=== PATIENT | female | born 1935 | race Caucasian/White ===

== ENCOUNTER 2018-07-14 21:09 | Emergency (ER) | payer MEDICARE, SELFPAY ==
[2018-07-14] VITALS (7 sets, daily range): BP systolic 149–174; BP diastolic 48–93; PULSE 54–60; RESP 18–22; TEMP 36.6–36.7; O2SAT 91–95
--- NOTE | 2018-07-14 21:01 | ED.GENADUL_ITS ---
Discharge Plan Disposition Patient Disposition: HOME Condition: Stable Discharge Details Chief Complaint: Nausea/Vomit/Diar Clinical Impression: CAP (community acquired pneumonia) Reason For Visit: FILI Primary Care Provider: Camila Moreland ED Provider: Ben Lockett Home Meds and New Rx's Prescriptions: New levofloxacin 750 mg tablet 750 mg PO DAILY Qty: 6 RF: 0 ondansetron 4 mg tablet,disintegrating 4 mg PO TID PRN (Reason: nausea and vomiting) 5 Days Qty: 30 RF: 0 No Action propranolol 80 mg tablet 80 mg PO BID Qty: 180 RF: 0 dimenhydrinate [Dramamine] 50 mg Tablet 50 mg PO PRN PRNRF: 0 Discharge Instructions Instructions: Community Acquired Pneumonia (ED) Additional Instructions: Your lab work did not show any concerning findings. Your xray showed that you have a pneumonia Follow up with your primary care provider within a week if you feel you are becoming more ill, having persistent vomit or worsening trouble breathing return to the emergency department Medical Decision Making 82 yo female with hx of htn comes in with ems with not feeling well for a week, cough, general weakness, and n/v. She denies chest sun, fevers, headaches, neck stiffness, abdominal pain, rashes, recent travel. She is speaking in full sentences on exam without distress. She has no abdominal tenderness or distention to suggest sbo, cholecystitis or other pathology. Will eval for pna, obtain lab work to eval for dehydration and also test for influenza and monitor. labs unremarkable, awaiting xray. She is feeling better with IVF. HD stable xray shows pna. She is ambulating without respiratory distress. Recommended admission given her age but she declined and prefers to attempt outpatient management. Her PSI score is 60 points so outpatient management is reasonable at this itme. She will f/u with her pcp and return precautions given Differential Diagnosis pna, uri, influenza, uti Imaging Data Radiologic Study: Attestation: I personally reviewed and interpreted this imaging study as follows: Imaging: X-Ray Radiologist's impression: IMPRESSION: Right perihilar pneumonia. Suggest six-week followup. Lab Data Lab results reviewed: Yes I reviewed the patient's lab results. HPI General Mode of arrival: EMS . Date/Time Provider Initiated Documentation: 07/14/18 21:14 . Limitations to Documentation: no limitations . Information obtained by: patient . History of Present Illness 82 year old F presents to the emergency department with the chief complaint of don't feel well, Patient started experiencing this week(s) (1) and it has been constant. No relieving factors improve symptom(s), No exacerbating factors reported . Patient notes cough and nausea/vomiting. Related Data Home Medications Medication Instructions Recorded Confirmed propranolol 80 mg tablet 80 mg PO BID #180 tab-cap 06/08/18 07/14/18 dimenhydrinate [Dramamine] 50 mg PO PRN PRN 07/14/18 07/14/18 levofloxacin 750 mg PO DAILY #6 tab 07/14/18 ondansetron 4 mg PO TID PRN 5 Days #30 tab 07/14/18 Previous Rx's Medication Instructions Recorded propranolol 80 mg tablet 80 mg PO BID #180 tab-cap 06/08/18 levofloxacin 750 mg PO DAILY #6 tab 07/14/18 ondansetron 4 mg PO TID PRN 5 Days #30 tab 07/14/18 Allergies Allergy/AdvReac Type Severity Reaction Status Date / Time Sulfa (Sulfonamide Allergy Unknown Unverified 07/14/18 21:13 Antibiotics) Review of Systems Review of Systems All systems reviewed & are unremarkable except as noted in HPI and below Constitutional Denies chills and Denies fever(s) Eyes Denies loss of vision ENT Denies change in voice Cardiovascular Denies chest pain and Denies dyspnea Respiratory Denies dyspnea Gastrointestinal Denies abdominal pain Musculoskeletal Denies joint swelling Integumentary/Breasts Denies rash Neurologic Denies loss of vision Endocrine Denies cold intolerance and Denies heat intolerance [facility] Surgical History Cholecystectomy (~1991) Fracture, Closed Treatment (04/10/14) Social History Smoking and Tabacco status: Never Exam Const General: no acute distress Orientation: alert HENMT Head: normal to inspection Ears: external ears normal General nose exam: external nose normal Mouth: moist mucous membranes Eyes General: appearance normal, both eyes and all related structures Neck Neck: normal visual inspection Resp Effort & Inspection: normal respiratory effort and able to speak in complete sentences Cardio Rate: regular rate Skin General skin exam: no rashes or lesions noted Neuro General: alert and oriented x3 Extrem General: normal to inspection Psych Mental Status: mental status grossly normal
[2018-07-14] MEDS: Ondansetron 4 MG/2 ML VIAL IVP (21:28)
[2018-07-14] MEDS: Normal Saline 1,000 ML 1000 ML IV (21:28)
[2018-07-14 21:42] LABS: Abs Immature Grans 0.02 k/cumm (0.0-0.09); Absolute Basophil Count 0.02 k/cumm (0.0-0.2); Absolute Eosinophil Count 0.07 k/cumm (0.0-0.7); Absolute Lymphocyte Count 0.82 k/cumm (1.2-3.4); Absolute Monocyte Count 0.82 k/cumm (0.11-0.7); Absolute Neutrophil Count 6.78 k/cumm (1.2-6.7); Basophils % 0.2; Eosinophils % 0.8; HCT 41.5 % (36.0-46.0); HGB 13.8 g/dL (12.0-15.5); Immature Grans % 0.2; Lymphocytes % 9.6; Mean Corp. HGB Concentration 33.3 g/dL (32.0-36.0); Mean Corpuscular Hemoglobin 29.2 pg (27.0-33.0); Mean Corpuscular Volume 87.7 fL (80-95); Mean Platelet Volume 10.8 fL (8.0-11.0); Monocytes % 9.6; Neutrophils % 79.6; Platelet Count 143 x1000/uL (130-400); RBC 4.73 m/cumm (4.00-5.20); RBC Distribution Width 14.4 % (11.7-14.6); White Blood Cell Count 8.53 k/cumm (4.4-10.8)
[2018-07-14 21:55] LABS: ALT 16 U/L (12-78); AST 21 U/L (15-37); Alkaline Phosphatase 151 U/L (46-116); Anion Gap 9.3 mmol/L (3-11); BUN 23 mg/dL (7-18); Bilirubin, Direct 0.18 mg/dL (0.00-0.20); Bilirubin, Total 0.6 mg/dL (0.2-1.0); CO2 25.7 mmol/L (21.0-32.0); Calcium 8.5 mg/dL (8.5-10.1); Chloride 98 mmol/L (98-107); Glucose 152 mg/dL (70-100); Lipase 72 U/L (73-393); Magnesium 1.8 mg/dL (1.8-2.4); Sodium 133 mmol/L (136-145); Total Protein 7.1 g/dL (6.4-8.2)
[2018-07-14 21:56] LABS: INR 1.1 (0.9-1.1); PTT Activated 25.3 sec (21.0-31.4)
--- NOTE | 2018-07-14 22:10 | DI.RAD_ITS ---
SYMPTOM/DIAGNOSIS: COUGH PA AND LATERAL CHEST: A region of infiltration is noted adjacent to the minor fissure and there are regions of infiltration involving the right lower lobe. The left lung is clear. There is no evidence of a pleural effusion. The cardiovascular structures are intact. IMPRESSION: Findings consistent with an acute pneumonitis. Follow up images to clearing is recommended.
--- NOTE | 2018-07-14 22:21 | DI.VRAD_ITS ---
EXAM: XR Chest, 2 Views EXAM DATE/TIME: 07/14/2018 9:32 PM CLINICAL HISTORY: 82 years old, female; Signs and symptoms; Cough and other: Weakness; Patient HX: Cough for 1 week, weakness and general malise TECHNIQUE: XR of the chest, 2 views. COMPARISON: CR RIGHT RIBS TO INCLUDE CXR 04/17/2014 1:40 PM FINDINGS: Lungs: Right lung has some perihilar infiltrates. Pleural space: Unremarkable. No evidence of pneumothorax. Heart/Mediastinum: Unremarkable. Heart size within normal limits for technique. Bones/joints: Unremarkable. IMPRESSION: Right perihilar pneumonia. Suggest six-week followup. Dictated and Authenticated by: Avni Bird MD. Ordering:BERTHA Contreras MD
[2018-07-14] MEDS: LEVOFLOXACIN 500 MG, LEVOFLOXACIN 250 MG 750 MG PO (22:48)
--- NOTE | 2018-07-15 09:39 | CMPROGNOTE_ITS ---
Care Management Progress Note 07/15-Dr. Lockett requested assistance with a PCP (Mer[facility]) f/u in one week for pneumonia. Referral faxed to [facility] this .
== END 2018-07-14 23:18 | disposition home or self-care (01) ==
PROVIDERS: Emergency Provider Emergency Medicine; PCP Family Medicine
DX: J18.9 Pneumonia, unspecified organism (principal); I10 Essential (primary) hypertension
CPT/HCPCS: 36415; 80053; 80076; 83690; 87449; 96361; 96374; 99284; 71046; 81003; 83735; 85025; 85610; 85730; 99283; J2405

== ENCOUNTER 2019-05-08 14:54 | Inpatient (IN) | payer MEDICARE, SELFPAY ==
[2019-05-08] VITALS (99 sets, daily range): BP systolic 91–252; BP diastolic 50–146; PULSE 43–66; RESP 11–21; TEMP 36.5; O2SAT 87–99
--- NOTE | 2019-05-08 16:09 | W.ED.GENAD ---
Discharge Plan Disposition Condition: Good Discharge Details Chief Complaint: GenMedical Admit Date/Time: 05/08/19 17:37 Admit Provider: Sravan Reyes Attending Provider: Sravan Reyes Primary Care Provider: Camila Moreland ED Provider: Frederick Rowe Discharge Instructions Activity:: Activity as Tolerated Equipment/Supplies:: four wheeled walker Diet:: Low Sodium Discharge Orders Discharge Orders: Discharge Order (Routine); Ordered 05/12/19 Ordered By: Natasha Ruiz Discharge Data Discharge Date/Time-TO BE ENTERED AT DEPARTURE: 05/08/19 18:50 Medical Decision Making 16:24 --83-year-old female with history of hypertension, recently had her propanolol dosing decreased, also with history of CVA which she notes likely remote TIA with no residual defects, here with elevated blood pressure, dizziness and tingling in her bilateral legs. On exam patient has mild right facial weakness which she is unaware of as well as slight slurring to her speech. Concern for hypertensive emergency versus CVA versus other. Screening ECG was reviewed and interpreted by me: Sinus rhythm 60 bpm, nonspecific ST depression noted laterally V2 to V6 which is similar when compared to prior ECG from 12/23/2016. Plan to CT head. I will initiate treatment with nicardipine IV infusion. 17:23 --CT of the head was interpreted by radiology: IMPRESSION: Right-sided sinusitis. No acute arterial territory stroke. No intracranial hemorrhage Partially calcified extra-axial left frontal lobe mass. Consider MRI with IV contrast for further evaluation. Labs reviewed and nondiagnostic. I called and spoke with neurology operation agent at [facility]. Discussed ED presentation and course. He was able to review the chart from [facility] visit 04/25/2019. We specifically discussed extra-axial mass noted on CT head. He feels mass is chronic and likely meningioma and unrelated to current presentation. He does not feel emergent MRI is necessary. Patient was reassessed: BP improved and decreased by slightly more than 25%. Will decrease nicardipine drip to 4 mg/h. Family now here and note that they believe right facial weakness is chronic. Plan will be to admit for hypertensive emergency. HPI General Mode of arrival: ambulatory. Date/Time Provider Initiated Documentation: 05/08/19 15:31. Limitations to Documentation: no limitations. Information obtained by: patient. HPI Narrative: 83-year-old female with history of hypertension, prior CVA without residual deficits, presents with chief complaint of elevated blood pressure. Patient notes that a couple days prior to [place] she was noted to have elevated blood pressure and confusion and was taken to [facility]. She had extensive testing done at [facility] and was discharged from the emergency department. She followed up with her primary care physician who decreased her propanolol dosing. She notes that since this time she has had elevated blood pressure. Blood pressure today was extremely high. She notes associated tingling in her lower legs bilaterally for the past 3 days and also notes some dizziness. She states that today she felt like she might pass out. At this time she denies chest pain, shortness of breath, abdominal pain, nausea or vomiting. She does have moderate headache. She does not typically have headaches. No focal numbness or weakness. Related Data Home Medications Medication Instructions Recorded Confirmed metoprolol succinate 25 mg PO DAILY #14 cap 05/13/19 prednisone 60 mg PO DAILY 4 Days #12 tab 05/13/19 Previous Rx's Medication Instructions Recorded metoprolol succinate 25 mg PO DAILY #14 cap 05/13/19 prednisone 60 mg PO DAILY 4 Days #12 tab 05/13/19 Allergies Allergy/AdvReac Type Severity Reaction Status Date / Time Sulfa (Sulfonamide Allergy Unknown Unverified 05/13/19 09:25 Antibiotics) General Stated Complaint: GenMedical JENNIFER: 3 Review of Systems All systems reviewed & are unremarkable except as noted in HPI and below Constitutional Constitutional: Denies fever(s) Cardiovascular Cardiovascular: Denies chest pain Neurologic Neurologic: Reports as per HPI [facility] Medical History Acute infective polyneuritis (Inactive ~04/03/1966) Cerebrovascular accident (Chronic) 06/12 CT @ [facility]: SMALL LACUNAR INFARCTS. Incidental findings. 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 Impaired renal function disorder (Chronic) declines testing Intention tremor (Chronic) SECONDARY TO HYPOGLYCEMIA; NEUROLOGY W/U NEG.;on propranolol Macular degeneration (Acute) Meningioma (Acute) cerebral, left frontal, small, stable since 2007 Pneumonia (Inactive ~07/20/18) Surgical History Cholecystectomy (~1991) Fracture, Closed Treatment (04/10/14) LEFT SHOULDER FX AND DISLOCATED Status post extracapsular cataract extraction of left eye (Acute) Social History Smoking/Tobacco Use Status: Never Alcohol Intake: never Drug use: Never Substance use type: does not use Household members: none Do you feel safe at home: Yes Do you feel safe in your relationship?: Yes Exam Const General: cooperative and no acute distress HENMT Head: normocephalic and atraumatic Mouth: moist mucous membranes Eyes Conjunctivae: normal conjunctivae Sclera: normal sclerae EOM: EOM intact bilaterally Neck Neck: trachea midline and supple Resp Auscultation: clear to auscultation bilaterally, no rales, no rhonchi and no wheezes Cardio Jugular venous pressure: no JVD Rate: regular rate and not tachycardic Rhythm: regular rhythm GI Palpation: soft, not firm, no guarding, no masses, not rigid and nontender Skin General skin exam: no rashes or lesions noted Neuro General: alert, awake, oriented x3 and tone normal Cranial Nerves: PERRL and EOM intact bilaterally Cognition: normal cognition Speech: abnormal speech garbled Motor: other (Strength 5/5 all extremities; mild right facial weakness ) Sensory Exam: no sensory deficits noted Extrem General: no edema Psych Appearance: grossly normal Mental Status: mental status grossly normal Speech and Movement: speech and movement normal Course Vital Signs Vital signs: Vital Signs Temperature 36.5 C 05/08/19 15:01 Pulse 66 05/08/19 15:01 Respiratory Rate 18 05/08/19 15:01 Blood Pressure 252/146 H 05/08/19 15:01 Pulse Oximetry 98 05/08/19 15:01 Temperature 36.5 C 05/08/19 15:01 Temperature Source Tympanic 05/08/19 15:01 Pulse 66 05/08/19 15:01 Respiratory Rate 18 05/08/19 15:01 Respiratory Effort Non-Labored 05/08/19 15:31 Blood Pressure 252/146 H 05/08/19 15:01 Blood Pressure Position Sitting 05/08/19 15:01 Pulse Oximetry 98 05/08/19 15:01 Oxygen Delivery Method Room Air 05/08/19 15:01 Oxygen Flow Rate 0 05/08/19 15:01 Critical Care Time Critical Care Time Critical Care Time: Yes Total Critical Care Time: 40 Attestation: I spent greater than 40 minutes addressing this patient's immediate life threats
[2019-05-08 16:20] LABS: Abs Immature Grans 0.03 k/cumm (0.0-0.09); Absolute Basophil Count 0.04 k/cumm (0.0-0.2); Absolute Eosinophil Count 0.18 k/cumm (0.0-0.7); Absolute Lymphocyte Count 1.79 k/cumm (1.2-3.4); Absolute Monocyte Count 0.86 k/cumm (0.11-0.7); Basophils % 0.4; Eosinophils % 1.8; HCT 47.4 % (36.0-46.0); HGB 15.6 g/dL (12.0-15.5); Immature Grans % 0.3 %; Lymphocytes % 18.1; Mean Corp. HGB Concentration 32.9 g/dL (32.0-36.0); Mean Corpuscular Hemoglobin 29.2 pg (27.0-33.0); Mean Corpuscular Volume 88.8 fL (80-95); Mean Platelet Volume 11.9 fL (8.0-11.0); Monocytes % 8.7; Neutrophils % 70.7; Platelet Count 223 x1000/uL (130-400); RBC 5.34 m/cumm (4.00-5.20); RBC Distribution Width 14.8 % (11.7-14.6)
--- NOTE | 2019-05-08 16:29 | DI.CT_ITS ---
EXAM: CT HEAD - STROKE PROTOCOL CLINICAL HISTORY: right facial weakness, slurred speech TECHNIQUE: Noncontrast COMPARISON: No exams were available for comparison FINDINGS: No acute hemorrhage, mass or infarct is seen. There is no evidence of skull fracture. The right ma xillary sinus is completely opacified. There is also opacification of right-sided ethmoid sinuses. T he mastoid air cells appear clear. IMPRESSION: Right-sided sinus disease. No evidence of acute infarct.
[2019-05-08 16:41] LABS: ALT 20 U/L (14-59); AST 26 U/L (15-37); Albumin 3.8 g/dL (3.4-5.0); Alkaline Phosphatase 141 U/L (46-116); Anion Gap 12.2 mmol/L (3-11); BUN 36 mg/dL (7-18); Bilirubin, Total 0.6 mg/dL (0.2-1.0); CO2 26.8 mmol/L (21.0-32.0); CREATININE 1.16 mg/dL (0.55-1.02); Calcium 9.3 mg/dL (8.5-10.1); Chloride 101 mmol/L (98-107); Estimated GFR 44.73 (mL/min/1.73m2); Glucose 141 mg/dL (74-106); Sodium 140 mmol/L (136-145); Total Protein 7.8 g/dL (6.4-8.2); Troponin I < 0.05 ng/Ml (<0.06)
[2019-05-08 16:42] LABS: Potassium 5.1 mmol/L (3.5-5.1)
--- NOTE | 2019-05-08 16:42 | DI.VRAD_ITS ---
Addendum created by Wilbert Soares MD on 05/08/2019 5:44:23 PM EST THIS REPORT CONTAINS FINDINGS THAT MAY BE CRITICAL TO PATIENT CARE. MAMTA BURNETTE acknowledged receiving the report results at 5:44 PM EST on 05/08/2019. The findings were acknowledged and understood. Initial report created on 05/08/2019 4:42:00 PM EST PROCEDURE INFORMATION: Exam: CT Head Without Contrast Exam date and time: 05/08/2019 4:28 PM Age: 83 years old Clinical indication: Altered mental status/memory loss TECHNIQUE: Imaging protocol: Computed tomography of the head without contrast. Other technique: STROKE PROTOCOL was implemented. COMPARISON: No relevant prior studies available. FINDINGS: Brain: There is nonspecific white matter disease, likely related to chronic ischemic demyelination.No intracranial hemorrhage is seen. No acute arterial territory stroke is noted.There is brain parenchymal atrophy. Partially calcified extra-axial left frontal lobe mass. Consider MRI with IV contrast for further evaluation. Ventricles: Normal. No ventriculomegaly. Bones/joints: Unremarkable. No acute fracture. Sinuses: Complete opacification of the right frontal, ethmoid and maxillary sinuses. Mastoid air cells: Visualized mastoid air cells are well aerated. Soft tissues: Unremarkable. IMPRESSION: Right-sided sinusitis. No acute arterial territory stroke. No intracranial hemorrhage Partially calcified extra-axial left frontal lobe mass. Consider MRI with IV contrast for further evaluation. ASSESSMENT: ASPECTS ([place] Stroke Program Early CT Score) is 10 Dictated and Authenticated by: Wilbert Soares MD. Ordering:KUN Mack MD
[2019-05-08] MEDS: niCARdipine 25 MG in Normal Saline 240 ML 30 MG IV (16:51)
[2019-05-08 16:59] LABS: Bilirubin Negative (Negative); Blood Negative (Negative); Clarity Clear (Clear); Glucose Negative (Negative); Ketones Negative (Negative); Leukocyte Esterase Negative (Negative); Nitrite Negative (Negative); Urobilinogen 0.2 EU/dL (Up TO 0.2); pH 6.5 (5-8)
[2019-05-08] MEDS: SODIUM CHLORIDE 0.45% 1,000 ML 80 ML IV (19:10)
--- NOTE | 2019-05-08 20:53 | HPE_ITS ---
Date of service: 05/08/19 Time of Service: 20:53 Assessment and Plan Assessment and plan (1) Hypertensive urgency: Status: Acute Assessment and plan: BP is improving with nicardipine drip. I have muller ged her propranolol to carvedilol. However her use of beta-blockers to control her hypertension and her intentional tremor may be limited due to her bradycardia. She may require Mysoline to treat her essential tremor and she may need a non-negative chronotropic medication to control blood pressure such as an JO-ANN inhibitor or an angiotensin receptor andrew or a hydro-pyridine calcium channel andrew. For tonight will use the nicardipine drip to maintain her systolic blood pressure in the 150-180 range. Then switch her over to oral medications tomorrow morning. (2) Prerenal azotemia: Status: Acute Assessment and plan: We will gently rehydrate her with IV fluids and repeat her BMP and CBC in the morning. 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 Patient has been treated with propranolol 80 mg twice a day for both her essential hypertension and her essential tremors. She was with her family looking at [employer] lights in [place] just before [place] on April 25, 2019 when she developed severe nausea vomiting despite taking her usual Dramamine which she requires for motion sickness and this was associated with some confusion and disorientation. Of note patient's had some recent problems with memory loss as well as visual and auditory hallucinations that began before . She was taken to the emergency department at the [facility] where she underwent a work-up including routine labs and CT scan of her head. CT scan of the head showed a stable old left 7 mm frontal meningioma as well as bilateral lacunar infarcts. The meningioma is been present for the past 11 years. At the time of her evaluation at [facility] her blood pressure was elevated and remained elevated throughout her ER visit at 187/107 b ut prior to discharge was 190/58. Routine labs including a CBC and chemistry profile were unremarkable. EKG demonstrated sinus bradycardia rate of 48 bpm. Patient was treated with Zofran 4 mg IV and was discharged to follow-up with her PCP Dr. Camila Moreland. It was felt by the ER physician that her symptoms were either secondary to anticholinergic side effects from the Dramamine or doing her propranolol. At the time of discharge her propranolol dose was decreased from 80 mg twice a day to 40 mg every 8 hours. Since that time the patient states her blood pressures have been elevated in the 170s systolic. She saw Dr. Moreland for follow-up on April 29, 2019. At that time her blood pressure was 146/90 and a pulse of 56. Dr. Moreland felt that because the patient been taken Dramamine all of her life for motion sickness without side effects that perhaps hallucinations were secondary to the propranolol and therefore reduce the dose to 40 mg twice a day. Today the patient states her blood pressure was 200 systolic and she called her brother who lives by her to bring her to the hospital. She is complained of bilateral leg tingling for the last 3 days along with dizziness but she denies any syncope nausea or vomiting abdominal pain chest pain or dyspnea. She does have a bilateral frontal headache but does not typically have headaches. She denies any numbness or tingling in her arms or hands nor does she have any focalized weakness. She was seen in the emergency department by Dr. Frederick Rowe who performed a work-up including a CT scan of her head as well as routine labs. CT of the brain without contrast showed right-sided sinusitis no evidence of an acute blee d she has a partially calcified extradural left frontal mass. Dr. Rowe had this reviewed by neurology from [facility] and compared to the prior CTs done at [facility] and there is been no change in 11 years and this meningioma. ECG demonstrates sinus bradycardia rate of 60 bpm. She has borderline criteria for LVH. Routine labs including a CBC CMP and urinalysis were performed. CBC shows no leukocytosis. She has hemoconcentration changes with a hemoglobin of 15.6 g and a hematocrit of 47%. This is new compared to July 14, 2018. Her BUN and creatinine are elevated at 36 and 1.16 respectively. Glucose is 141. Electrolytes are within normal limits. LFTs are normal with the exception of alkaline phosphatase 141. Troponin is less than 0.05. Urinalysis is unremarkable. Specifically there is no protein or blood in her urine and no ketones or nitrites or leukocyte esterase. Treatment emergency department included initiation of a nicardipine drip. She was initially started 3 mg an hour and titrate up to 4 mg an hour. This is been titrated down to 2 mg an hour and has had to be paused because of normotensive blood pressure readings. She is now admitted to be treated for hypertensive ur gency. She is also mildly dehydrated and has prerenal azotemia. Review of Systems Narrative: 10 system review of systems was performed and was negative except for the following and those listed in the HPI. Neurologically she complains of bilateral tingling from her feet to her knees which is improved since her blood pressures come down. She has had a frontal headache today which is improved since her blood pressure has improved. She denies any blurred vision or double vision or loss of vision. She is positive for hallucinations both visual and auditory the been occurring since along with memory loss. Cardiovascular negative for chest pain pressure palpitations. Pulmonary negative for shortness of breath cough GI negative for abdominal pain or nausea or vomiting or diarrhea. Genitourinary negative for dysuria or hematuria Psychiatric see HPI Musculoskeletal no acute arm pain or leg pain or weakness. Positive bilateral leg tingling. Hematologic negative for bruising or bleeding for swollen lymph nodes [facility] Medical History (Updated 05/08/19 @ 22:07 by Sravan Reyes) Acute infective polyneuritis (Inactive ~04/03/1966) Cerebrovascular accident (Chronic) 06/12 CT @ COUNT INCLUDES THE [facility]: SMALL LACUNAR INFARCTS. Closed displaced fracture of greater tuberosity of left humerus (Resolved 04/10/14) Closed fracture of head of left humerus (Resolved 04/10/14) Dislocation of shoulder, anterior, left, closed (Resolved 04/10/14) Essential hypertension (Chronic) declines much treatment Impaired renal function disorder (Chronic) declines testing Intention tremor (Chronic) SECONDARY TO HYPOGLYCEMIA; NEUROLOGY W/U NEG.;on propranolol Meningioma (Acute) Pneumonia (Inactive ~07/20/18) Surgical History (Updated 05/08/19 @ 22:01 by Sravan Reyes) Cholecystectomy (~1991) Fracture, Closed Treatment (04/10/14) LEFT SHOULDER FX AND DISLOCATED Status post extracapsular cataract extraction of left eye (Acute) Social History Smoking/Tobacco Use Status: Never Alcohol Intake: never Drug use: Never Substance use type: does not use Do you feel safe at home: Yes Meds Home Medications and Allergies Home Medications Medication Instructions Recorded Confirmed Type propranolol 40 mg PO BID 05/08/19 05/08/19 History Allergies Allergy/AdvReac Type Severity Reaction Status Date / Time Sulfa (Sulfonamide Allergy Unknown Unverified 04/29/19 14:24 Antibiotics) Exam Narrative Exam Narrative: General appearance elderly obese female who is lying in bed in semi-mosquera position in no acute distress. HEENT is remarkable for seborrheic keratosis on the top of her scalp. She has a scab above the left ear. Pupils are equally round reactive extraocular motions intact. Fundi show no papilledema. Neck is supple no JVD normal carotid pulses no bruits no thyromegaly no lymphadenopathy. Lungs are clear to auscultation Heart is bradycardic without S3 or S4 gallop. There is a soft systolic murmur along the left sternal border. No thrill or heave or gallop Abdomen soft and nontender. She has a well-healed cholecystectomy scar in the right upper quadrant. There is no palpable masses no bruits. Lower extremities without peripheral cyanosis or edema. No calf tenderness. She has venous varicosities in both legs. She has normal pedal pulses. Neurologic exam she has an essential tremor in her hands right more so than the left. [id number] testing showed no past-pointing. Visual acuity grossly intact with use of her glasses. Extraocular motions intact. No facial asymmetry no dysarthric speech tongue is midline. She moves her palate symmetrically. Hand leather carver strength and arm strength and leg strength are within normal limits. Babinski reflex is absent. Sensation is intact light touch and noxious stimuli over both upper and lower extremities. Results Imaging EKG: image reviewed Imaging Studies: Noncontrast CT scan of the brain dated May 08, 2019: FINDINGS: Brain: There is nonspecific white matter disease, likely related to chronic ischemic demyelination.No intracranial hemorrhage is seen. No acute arterial territory stroke is noted.There is brain parenchymal atrophy. Partially calcified extra-axial left frontal lobe mass. Consider MRI with IV contrast for further evaluation. Ventricles: Normal. No ventriculomegaly. Bones/joints: Unremarkable. No acute fracture. Sinuses: Complete opacification of the right frontal, ethmoid and maxillary sinuses. Mastoid air cells: Visualized mastoid air cells are well aerated. Soft tissues: Unremarkable. IMPRESSION: Right-sided sinusitis. No acute arterial territory stroke. No intracranial hemorrhage Partially calcified extra-axial left frontal lobe mass. Consider MRI with IV contrast for further evaluation. ASSESSMENT: ASPECTS ([address] Stroke Program Early CT Score) is 10 Dictated and Authenticated by: Wilbert Soares MD. Labs Result diagrams: 05/08/19 15:20 05/08/19 15:20 Labs: Laboratory Results - last 24 hr 05/08/19 05/08/19 05/08/19 15:20 15:20 16:46 WBC 9.90 RBC 5.34 H Hgb 15.6 H Hct 47.4 H MCV 88.8 MCH 29.2 MCHC 32.9 RDW 14.8 H Plt Count 223 MPV 11.9 H Immature Gran % 0.3 Neutrophils % 70.7 Lymphocytes % 18.1 Monocytes % 8.7 Eosinophils % 1.8 Basophils % 0.4 Absolute Neutrophils 7.00 H Absolute Lymphocytes 1.79 Absolute Monocytes 0.86 H Absolute Eosinophils 0.18 Absolute Basophils 0.04 Sodium 140 Potassium 5.1 Chloride 101 Carbon Dioxide 26.8 Anion Gap 12.2 H BUN 36 H Creatinine 1.16 H Estimated GFR/1.73 m2 44.73 Glucose 141 H Calcium 9.3 Total Bilirubin 0.6 AST 26 ALT 20 Alkaline Phosphatase 141 H Troponin I < 0.05 Total Protein 7.8 Albumin 3.8 Urine Color Yellow Urine Clarity Clear Urine pH 6.5 Ur Specific [place] 1.010 Urine Protein Negative Urine Ketones Negative Urine Blood Negative Urine Nitrite Negative Urine Bilirubin Negative Urine Urobilinogen 0.2 Ur Leukocyte Esterase Negative Urine Glucose Negative Last Vital Signs Temp 36.5 C 05/08/19 19:03 Pulse 46 L 05/08/19 19:03 Resp 17 05/08/19 19:03 BP 116/94 H 05/08/19 19:03 Pulse Ox 98 05/08/19 19:03
[2019-05-09] VITALS (113 sets, daily range): BP systolic 105–179; BP diastolic 42–141; PULSE 41–159; RESP 10–24; TEMP 36.1–36.6; O2SAT 84–98
[2019-05-09 06:58] LABS: Abs Immature Grans 0.02 k/cumm (0.0-0.09); Absolute Basophil Count 0.03 k/cumm (0.0-0.2); Absolute Eosinophil Count 0.18 k/cumm (0.0-0.7); Absolute Lymphocyte Count 2.17 k/cumm (1.2-3.4); Absolute Monocyte Count 0.62 k/cumm (0.11-0.7); Absolute Neutrophil Count 3.96 k/cumm (1.2-6.7); Basophils % 0.4; Eosinophils % 2.6; HCT 44.6 % (36.0-46.0); HGB 14.5 g/dL (12.0-15.5); Immature Grans % 0.3 %; Lymphocytes % 31.1; Mean Corp. HGB Concentration 32.5 g/dL (32.0-36.0); Mean Corpuscular Hemoglobin 28.9 pg (27.0-33.0); Mean Platelet Volume 11.5 fL (8.0-11.0); Monocytes % 8.9; Neutrophils % 56.7; Platelet Count 183 x1000/uL (130-400); RBC 5.01 m/cumm (4.00-5.20); RBC Distribution Width 14.9 % (11.7-14.6); White Blood Cell Count 6.98 k/cumm (4.4-10.8)
[2019-05-09 07:07] LABS: Anion Gap 9.8 mmol/L (3-11); BUN 30 mg/dL (7-18); CO2 26.2 mmol/L (21.0-32.0); CREATININE 0.82 mg/dL (0.55-1.02); Calcium 9.2 mg/dL (8.5-10.1); Chloride 106 mmol/L (98-107); Glucose 94 mg/dL (74-106); Sodium 142 mmol/L (136-145)
--- NOTE | 2019-05-09 08:26 | W.PM.PROGNOT ---
Date of Service Date of service: 05/09/19 Time of Service: 15:27 Assessment and Plan Assessment and plan (1) Hypertensive urgency: Status: Acute Assessment and plan: Better with initiation of norvasc. I think propranolol would not be a bad choice because it was treating more than just hypertension - it was also treating her tremors. At this point, the patient is not tolerating any beta andrew in any case. Because of the patient's presentation, TIA is a possibility. Obtaining MRI/MRA, echo, US carotid, and neurology consultation. (2) Prerenal azotemia: Status: Acute Assessment and plan: Clinically resolved. Ok to d/c IVF. (3) Hallucination: Status: Acute Assessment and plan: Chronic. Saw a clown last night in the corner. Family is wondering if hallucinations are due to propranolol. Obtaining neurology consult. (4) Intention tremor: Status: Chronic Assessment and plan: As above - propranolol would be ideal if the patient were able to tolerate beta blockers. (5) DVT prophylaxis: Status: Acute Assessment and plan: TEDs/SCDs. Holding chemical DVT ppx due to increased risk of hemorrhagic conversion in acute CVA/TIA (6) Discharge planning issues: Status: Acute Assessment and plan: Full code Falls at home - consult PT Consider palliative care consult Subjective Subjective Interval history since last seen: Feels a lot better now. Has some lightheadedness when she gets up and slight SOB when walking. Denies chest pain, nausea. Latest BP's in 130's. Only tingling in BLE's. Reports visual hallucinations (clown) and auditory hallucinations. No other focal deficits. HR in 50's - BB on hold. Afebrile. No headache. Exam Narrative Exam Narrative: General: very pleasant elderly female, sitting in a chair, A&Ox3, has slight hesitancy when she speaks, which per her daughter is her normal HEENT: EOMI, MMM Heart: RRR, no m/r/g Lungs: CTAB GI: abdomen is soft, nontender, nondistended Extremities: no e/c/c BLE's Objective Objective Clinical Data: Abnormal lab results 05/08/19 05/08/19 05/09/19 Range/Units 15:20 15:20 06:26 RBC 5.34 H (4.00-5.20) m/cumm Hgb 15.6 H (12.0-15.5) g/dL Hct 47.4 H (36.0-46.0) % RDW 14.8 H (11.7-14.6) % MPV 11.9 H (8.0-11.0) fL Absolute Neutrophils 7.00 H (1.2-6.7) k/cumm Absolute Monocytes 0.86 H (0.11-0.7) k/cumm Anion Gap 12.2 H (3-11) mmol/L BUN 36 H 30 H (7-18) mg/dL Creatinine 1.16 H (0.55-1.02) mg/dL Glucose 141 H (74-106) mg/dL Alkaline Phosphatase 141 H (46-116) U/L 05/09/19 Range/Units 06:26 RBC (4.00-5.20) m/cumm Hgb (12.0-15.5) g/dL Hct (36.0-46.0) % RDW 14.9 H (11.7-14.6) % MPV 11.5 H (8.0-11.0) fL Absolute Neutrophils (1.2-6.7) k/cumm Absolute Monocytes (0.11-0.7) k/cumm Anion Gap (3-11) mmol/L BUN (7-18) mg/dL Creatinine (0.55-1.02) mg/dL Glucose (74-106) mg/dL Alkaline Phosphatase (46-116) U/L Vital Signs Temperature 36.6 C 05/09/19 03:25 Temperature Source Temporal Artery Scan 05/09/19 03:25 Pulse 51 L 05/09/19 00:02 Pulse 48 L 05/08/19 22:46 Respiratory Rate 14 05/09/19 00:02 Respiratory Effort 05/09/19 06:50 Respiratory Depth Normal 05/09/19 06:50 Respiratory Pattern Normal 05/09/19 06:50 Blood Pressure 130/94 H 05/09/19 03:25 Blood Pressure Mean 106 05/09/19 03:25 Blood Pressure Position Supine 05/08/19 19:05 Pulse Oximetry 96 05/09/19 03:25 Oxygen Delivery Method Room Air 05/09/19 03:25 Oxygen Flow Rate 0 05/09/19 03:25 Pain Level 2 01/05/20 03:25 Intake & Output 05/08/19 05/08/19 05/09/19 11:59 23:59 11:59 Intake Total 697.501 / 697.501 120 / 120 Output Total 450 / 450 850 / 850 Balance 247.501 / 247.501 -730 / -730 Weight 88.904 kg 92.4 kg Intake: IV 457.501 / 457.501 Oral 240 / 240 120 / 120 Output: Urine 450 / 450 850 / 850 Other: Urine Color Yellow Pale Urine Appearance Clear Clear Urine Odor None Comment Pt denies history of incontinence Pt denies history of incontinence Voiding Methods Bedside Commode Bedside Commode Laboratory Results WBC 6.98 k/cumm (4.4-10.8) 05/09/19 06:26 RBC 5.01 m/cumm (4.00-5.20) 05/09/19 06:26 Hgb 14.5 g/dL (12.0-15.5) 05/09/19 06:26 Hct 44.6 % (36.0-46.0) 05/09/19 06:26 MCV 89.0 fL (80-95) 05/09/19 06:26 MCH 28.9 pg (27.0-33.0) 05/09/19 06:26 MCHC 32.5 g/dL (32.0-36.0) 05/09/19 06:26 RDW 14.9 % (11.7-14.6) H 05/09/19 06:26 Plt Count 183 x1000/uL (130-400) 05/09/19 06:26 MPV 11.5 fL (8.0-11.0) H 05/09/19 06:26 Immature Gran % 0.3 % 05/09/19 06:26 Neutrophils % 56.7 05/09/19 06:26 Lymphocytes % 31.1 05/09/19 06:26 Monocytes % 8.9 05/09/19 06:26 Eosinophils % 2.6 05/09/19 06:26 Basophils % 0.4 05/09/19 06:26 Absolute Neutrophils 3.96 k/cumm (1.2-6.7) 05/09/19 06:26 Absolute Lymphocytes 2.17 k/cumm (1.2-3.4) 05/09/19 06:26 Absolute Monocytes 0.62 k/cumm (0.11-0.7) 05/09/19 06:26 Absolute Eosinophils 0.18 k/cumm (0.0-0.7) 05/09/19 06:26 Absolute Basophils 0.03 k/cumm (0.0-0.2) 05/09/19 06:26 Sodium 142 mmol/L (136-145) 05/09/19 06:26 Potassium 4.0 mmol/L (3.5-5.1) D 05/09/19 06:26 Chloride 106 mmol/L (98-107) 05/09/19 06:26 Carbon Dioxide 26.2 mmol/L (21.0-32.0) 05/09/19 06:26 Anion Gap 9.8 mmol/L (3-11) 05/09/19 06:26 BUN 30 mg/dL (7-18) H 05/09/19 06:26 Creatinine 0.82 mg/dL (0.55-1.02) 05/09/19 06:26 Estimated GFR/1.73 m2 >= 60.00 (mL/min/1.73m2) 05/09/19 06:26 Glucose 94 mg/dL (74-106) 05/09/19 06:26 Calcium 9.2 mg/dL (8.5-10.1) 05/09/19 06:26 Total Bilirubin 0.6 mg/dL (0.2-1.0) 05/08/19 15:20 AST 26 U/L (15-37) 05/08/19 15:20 ALT 20 U/L (14-59) 05/08/19 15:20 Alkaline Phosphatase 141 U/L (46-116) H 05/08/19 15:20 Troponin I < 0.05 ng/Ml (<0.06) 05/08/19 15:20 Total Protein 7.8 g/dL (6.4-8.2) 05/08/19 15:20 Albumin 3.8 g/dL (3.4-5.0) 05/08/19 15:20 Urine Color Yellow (Yellow) 05/08/19 16:46 Urine Clarity Clear (Clear) 05/08/19 16:46 Urine pH 6.5 (5-8) 05/08/19 16:46 Ur Specific [place] 1.010 (1.005-1.025) 05/08/19 16:46 Urine Protein Negative mg/dL (Negative) 05/08/19 16:46 Urine Ketones Negative mg/dL (Negative) 05/08/19 16:46 Urine Blood Negative (Negative) 05/08/19 16:46 Urine Nitrite Negative (Negative) 05/08/19 16:46 Urine Bilirubin Negative (Negative) 05/08/19 16:46 Urine Urobilinogen 0.2 EU/dL (Up TO 0.2) 05/08/19 16:46 Ur Leukocyte Esterase Negative (Negative) 05/08/19 16:46 Urine Glucose Negative mg/dL (Negative) 05/08/19 16:46
[2019-05-09] MEDS: SODIUM CHLORIDE 0.45% 1,000 ML 50 ML IV (08:43)
[2019-05-09] MEDS: amLODIPine 5 MG TAB PO (08:58)
[2019-05-09] MEDS: Docusate Sodium 100 MG CAP PO (08:58)
--- NOTE | 2019-05-09 11:55 | PT.INIE ---
Date of service: 05/09/19 Time of Service: 11:30 PT Notes Visit Reasons: HYPERTENSIVE EMERGENCY Inpatient Physical Therapy Evaluation Date: 05/09/2019 Referring Doctor: Dr. Ruiz PT Orders: PT CONSULT: Limited ability to ambulate Precautions: standard Patient Profile/Admitting Diagnosis: Patient admitted 05/08/2019 for hypertensive emergency PMHX: hypertension, essential tremors, remote CVA in June 2007 without residual deficits, chronic kidney disease Social History/Home Situation: Patient lives independently in a mobile home. She has had 2 falls in the past, each resulting in significant shoulder trauma with residual deficits and ROM. Does not typically utilize an assistive device, although occasionally utilizes a cane for community ambulation. She drives independently. Has recently begun using a housing case manager because of limitations with upper extremity strength for housecleaning activities. She does admit to difficulty with self-care because of her restriction upper extremity range of motion, stating she has trouble washing and shaving her underarms. Equipment Owned/DME: Cane Subjective: Patient states that she is feeling well. She has just returned from a walk with nursing, which she states went fine. She denies pain. Objective: General Observation: Resting in chair with multiple lines. Patient has a pulse oximeter in place, IV in LUE, telemetry, blood pressure cuff to left upper extremity. Mental Status: A and O x3. Patient does defer to her daughter for specifics during history taking at times. Pain: 0/10 Vital Signs: Vitals monitored throughout. Post ambulation, BP is 144/67 ROM: Upper Extremity: AROM limited to approximately 20 degrees of flexion bilaterally. She is unable to externally rotate to neutral. Passively she tolerates 90 degrees of shoulder flexion bilaterally. Elbow and wrist motion grossly WFL. Right Lower Extremity: WFL Left Lower Extremity: WFL Strength: Upper Extremity: Marked functional weakness of the upper extremities, as noted above Right Lower Extremity: Hip flexion 4/5. Quads 4+/5. Ankle dorsiflexion 4+/5. Left Lower Extremity: Hip flexion 4/5. Quads 4+/5. Ankle dorsiflexion 4+/5. Bed Mobility/Transfers: Sit?stand: CG Stand?sit: CG Gait: Patient ambulates 120 feet with FW W, CGA. She requires cues for pacing and rest periods, and reports minor dizziness with ambulation, requiring standing rest period X2. Balance: Static Sitting: Normal Dynamic Sitting: Normal Static Standing: Fair Dynamic Standing: Fair Special Tests: Mobility Limitations Standardized Measure [facility] AM-PAC 6 clicks Basic Mobility Inpatient Short Form: Raw Score: 18 CMS Score: 47% deficit Informed Consent/Education: Patient instructed in purpose of PT consult and plan of care. Treatment: Today's session consisted of evaluation, followed by discussion regarding appropriate treatment planning and care, which patient verbalizes agreement with Assessment: Patient is a 83 year old female referred to physical therapy services with the diagnosis of limited ability to ambulate. Patient presents with clinical signs and symptoms consistent with diagnosis, related to acute medical issues. Patient and her family are describing some general declines in mobility, with patient having suffered 2 significant falls. She demonstrates good safety and equipment management with use of FW W, and will benefit from transition to utilization of FW W at home for fall prevention. Patient is in agreement with this plan. She currently demonstrates the following impairment level findings: 1. Decreased upper extremity range of motion bilaterally 2. Decreased activity tolerance 3. History of multiple falls Impairments are contributing to the following functional limitations: 1. Decreased activity tolerance 2. High fall risk Patient is assessed as a Moderate [id number] complexity based on the following: History: 83-year-old female presenting with mobility limitations in the presence of acute medical issues. She has a significant fall risk, and is at high risk for additional falls. Examination: Functional imitations as noted above Presentation: Evolving Decision Making: Moderate complexity Goals: Goals X1 week 1. Supine-Sit: Independent 2. Sit-Supine : Independent 3. Sit-Stand : Independent 4. Stand-Sit : Independent 5. Bed-Chair: Independent with FWW 6. Chair-Bed : Independent with FWW 7. Gait : Independent with FW W x50 feet Plan of Care/Treatment Plan: 1-2x/day, 7 days/week x 1 week. Plan of care has been reviewed with the MEDICAL CHARGE ENTRY SPECIALIST providing the service under Physical Therapy direction. Initiate Physical Therapy intervention for strengthening, bed mobility, transfers, gait, stairs, balance training, use of assistive device. DISCHARGE RECOMMENDATIONS: Home with home health PT. Patient will also require FW W at time of discharge TREATMENT CODE/TIME: 30 minutes ([id number]) Catherine Pratt, PT, DPT [facility]
--- NOTE | 2019-05-09 13:11 | PHARADMIT ---
Admission Pharmacy Clinical Review HYPERTENSIVE EMERGENCY Code Status Full Code Current Weight 92.4 kg Renally Cleared and Narrow Therapeutic Index Meds CRCL ~44ML/MIN QTc Value / Action Taken 414 BP Control, Fever 105/67 AFEBRILE Electrolytes reviewed OK DVT Prophylaxis NO, POSSIBLE STROKE Opiate Usage / Scheduled Bowel Regimen Ordered NO,PRN Plt/SCr for Heparin / Enoxaparin 183,0.82 INR for Warfarin NA H/H stable, WBC/Bands 14.5/44.6 WBC 6.98 Antibiotic appropriateness NA Cultures and Sensitivities NA Surgical ABX d/c within 24 hr NA DM control / Insulin Dosing NA Heart Failure (Check EF%) (JO-ANN's, B-Block, Diuretics) NA IV to PO Switch Home Meds Reviewed Home Meds Not Ordered Comments NICARDIPINE DRIP OVERNIGHT HAS BEEN STOPPED
--- NOTE | 2019-05-09 16:22 | PDOC.CMIN ---
- If Service Date Differs Date of service: 05/09/19 Time of Service: 16:22 Care Management Initial Assess REASON FOR HOSPITALIZATION:: Hypertensive emergancy PAST MEDICAL HISTORY/PAST SURGICAL HISTORY:: Meningioma, CVA, renal function disorder, tremor, HTN, per provider she has a recent history of hallucinations both visual and auditory that have been occurring since [place] along with memory loss. Surgical Hx fracture left shoulder and cataract left eye. PREVIOUS FUNCTIONAL STATUS/SOCIAL/FAMILY SUPPORTS:: Meredith lives alone in [place], [place] in a mobil home. She is . She drives and is able to care for herself at home. She has a daughter Yris who lives in [place] and son Diego who lives out of state. CURRENT FUNCTIONAL STATUS:: Meredith is sitting up in the chair in her room her daughter is present at time of assessment. Meredith appears alert she is engaged in assessment. She does have difficulty hearing at times. Meredith continues to drive short distances. She feels that she is pretty independent. ADVANCE DIRECTIVES:: On file Yris is first agent Diego is the second. Has patient been provided with information about the portal?: Yes Did the patient sign up for the portal?: No CODE STATUS:: Full Code CODE STATUS COMMENT:: Per chart has reviewed COLST form, Meredith has not completed at this time. INSURANCE COVERAGE / FINANCIAL ISSUES:: Medicare and [employer] CURRENT HOME/COMMUNITY SERVICES/EQUIPMENT:: No current services she does have a cane at home. PRIMARY CARE PHYSICIAN:: POTENTIAL DISCHARGE NEEDS:: Follow up with primary care scheduled prior to discharge. PATIENT/FAMILY EDUCATION NEEDS:: Discharge education, limitations and follow up plan of care including ask me three. Review of resources in the community including home delivery of meals. ANTICIPATED BARRIERS TO DISCHARGE:: None TRANSPORTATION:: Via private car with family at time of discharge. PLAN:: Meredith is being treated for HTN crisis, she will be discharged when medically ready per provider. She will follow up with primary care next scheduled visit is not until 07/22/2019. CM to continue to provide support and ongoing assessment of needs for discharge.
[2019-05-09 20:03] LABS: PTT Activated 26.8 sec (21.0-31.4); Prothrombin Time 10.4 sec (9.3-11.0); Troponin I < 0.05 ng/Ml (<0.06)
[2019-05-09 20:07] LABS: Anion Gap 8.3 mmol/L (3-11); BUN 30 mg/dL (7-18); CO2 28.7 mmol/L (21.0-32.0); CREATININE 1.15 mg/dL (0.55-1.02); Calcium 9.4 mg/dL (8.5-10.1); Chloride 102 mmol/L (98-107); Estimated GFR 45.17 (mL/min/1.73m2); Glucose 165 mg/dL (74-106); Potassium 4.2 mmol/L (3.5-5.1); Sodium 139 mmol/L (136-145); TSH (W/Ref FT4) 5.55 uIU/mL (0.36-3.74)
[2019-05-09] MEDS: Bisoprolol 5 MG TAB 2.5 MG PO (22:07)
[2019-05-09 23:45] LABS: Troponin I < 0.05 ng/Ml (<0.06)
[2019-05-10] VITALS (29 sets, daily range): BP systolic 132–175; BP diastolic 50–90; PULSE 44–67; RESP 13–24; TEMP 36.1–36.8; O2SAT 94–98
[2019-05-10 05:05] LABS: Abs Immature Grans 0.02 k/cumm (0.0-0.09); Absolute Basophil Count 0.04 k/cumm (0.0-0.2); Absolute Eosinophil Count 0.15 k/cumm (0.0-0.7); Absolute Lymphocyte Count 2.62 k/cumm (1.2-3.4); Absolute Neutrophil Count 4.19 k/cumm (1.2-6.7); Basophils % 0.5; Eosinophils % 1.9; HCT 42.7 % (36.0-46.0); HGB 14.2 g/dL (12.0-15.5); Immature Grans % 0.3 %; Lymphocytes % 33.9; Mean Corp. HGB Concentration 33.3 g/dL (32.0-36.0); Mean Corpuscular Hemoglobin 29.7 pg (27.0-33.0); Mean Corpuscular Volume 89.3 fL (80-95); Mean Platelet Volume 11.2 fL (8.0-11.0); Monocytes % 9.1; Neutrophils % 54.3; Platelet Count 174 x1000/uL (130-400); RBC 4.78 m/cumm (4.00-5.20); RBC Distribution Width 14.9 % (11.7-14.6); White Blood Cell Count 7.72 k/cumm (4.4-10.8)
[2019-05-10 05:08] LABS: BUN 30 mg/dL (7-18); CREATININE 0.93 mg/dL (0.55-1.02); Calcium 9.3 mg/dL (8.5-10.1); Chloride 105 mmol/L (98-107); Estimated GFR 57.72 (mL/min/1.73m2); Glucose 110 mg/dL (74-106); Magnesium 2.1 mg/dL (1.8-2.4); Potassium 4.3 mmol/L (3.5-5.1); Sodium 141 mmol/L (136-145)
[2019-05-10 05:31] LABS: PTT Activated 109.7 sec (21.0-31.4)
[2019-05-10 05:40] LABS: Vitamin B12 379 pg/mL (193-986)
--- NOTE | 2019-05-10 05:43 | NUR.NOTE ---
Nursing Note: Pt transferred from ICU room 220 to Med/Surg room 229 at 0430, via wheelchair. All belongings brought to new room, patient alert and oriented, transferred with standby guard from wheelchair to new bed. No c/o pain at this time. Oriented to new room, call neely within reach.
[2019-05-10 05:45] LABS: Troponin I < 0.05 ng/Ml (<0.06)
[2019-05-10] MEDS: amLODIPine 5 MG TAB PO (08:40)
[2019-05-10] MEDS: Bisoprolol 5 MG TAB PO (08:40)
[2019-05-10] MEDS: Cyanocobalamin 1000 MCG/ML VIAL IM/SC (09:48)
[2019-05-10] MEDS: LORazepam 0.5 MG TAB PO (11:48)
[2019-05-10 12:03] LABS: PTT Activated 53.7 sec (21.0-31.4)
[2019-05-10] MEDS: Normal Saline Flush 10 ML SYR IVP (13:06)
[2019-05-10] MEDS: Gadoterate meglumine 20 ML VIAL 19 ML IVP (13:07)
--- NOTE | 2019-05-10 13:29 | DI.US_ITS ---
EXAM: US CAROTID CLINICAL HISTORY: POSSIBLE CEREBROVASCULAR ACCIDENT TECHNIQUE: Ultrasound performed using standard protocol. COMPARISON: No exams were available for comparison FINDINGS: There is plaque in both common carotid bulbs. The velocity measurements in the internal carotid judit smiley are within the normal range. Both vertebral arteries show antegrade flow. IMPRESSION: Calcific plaque in the common carotid bulbs. No significant internal carotid artery stenosis.
--- NOTE | 2019-05-10 13:35 | DI.MRI_ITS ---
EXAM: MR BRAIN WO/W CLINICAL HISTORY: SLURRED SPEECH, ?CEREBROVASCULAR ACCIDENT VS HYPERTENSIVE EMERGENCY. TECHNIQUE: Multiplanar multisequence MRI was performed. Post gadolinium T1 axial and coronal sequen parish were performed in addition to the routine sequences. COMPARISON: No exams were available for comparison FINDINGS: No intracranial hemorrhage, mass or infarct is seen. There are no abnormal enhancing lesions. The v entricles are normal in size. There is no evidence of restricted diffusion. The vascular flow voids appear intact. There is opacification of the right maxillary sinus, right frontal sinus as well as several right ethmoid sinuses. IMPRESSION: Right-sided sinus disease. No acute abnormalities seen of the brain.
--- NOTE | 2019-05-10 14:29 | W.NUTCONSULT ---
Date of service: 05/10/19 Time of Service: 14:29 Nutritional Consult ASSESSMENT: 83 year old female admitted with hypertensive urgency and hallucinations, n/v. Symptoms controlled now. Following heart healthy diet, tolerating well and having adequate intake. BMI indicates class one obesity. Not considered at nutritional risk at this time. MONITORING AND EVALUATION: weight trends and po intake Time Spent in Nutritional Counseling and Treatment: 0 time spent face to face
--- NOTE | 2019-05-10 15:51 | NCONE_ITS ---
Date of service: 05/10/19 Time of Service: 15:52 Assessment and Plan Assessment and plan (1) Hallucination: Status: Acute (2) Essential tremor: Status: Acute (3) Gait abnormality: Status: Acute Assessment and plan: Ms. Thornton is an 83 year-old, right-handed woman who was admitted for hypertensive urgency and mild MARK. She has a ~2month history of hallucinations. Unfortunately, I was not able to get a history or exam from Ms. Thornton herself. The differential for her hallucinations is broad at this time. Given recent PCP visit, the most likely etiology is a dementing state. The hallucinations do not seem to be due to any particular medication and don't correlate with her BPs. It would be extremely unlikely that these were seizures or related to her small/stable cerebral meningioma. It's possible poor eyesight could be contributing, but this wouldn't explain the auditory components. Her daughter also mentions reduced gait mobility. Given above, a Parkinsonism remains in the differential as well. We should find out more about her GBS history and how that could be affecting her legs. Finally, would continue off beta-blockers for now, regarding tremor. Will wait to assess tremor to decide if other treatment is needed. Will plan to see and examine her tomorrow, however, if discharged prior to being seen, recommend f/up within the next 2 weeks. History of Present Illness History of Present Illness Chief Complaint: hallucinations Narrative: Handedness: right. HPI: Ms. Thornton is an 83 year-old woman with a PMH of hypertension, remote GBS, essential tremor, macular degeneration, chronic car sickness, and multiple joint OA. During my visit, she was sleeping heavily after receiving sedating medications for her MRI. Thus, the history is taken from the medical chart and from her daughter whom I spoke with. She lives alone. Her daughter became aware of visual and auditory hallucinations around /end march. These have all occurred at night, usually when she is in bed. The hallucinations are generally of people but she also experiences false movements as well (like the bed rocking). None of these are particularly disturbing and after the fact she can generally identify that these are hallucinations (e.g. she will call her daughter the next day about something that she saw the night before). On 04/25/19, she presented to the [facility] ER after a particularly severe episode of car sickness despite taking dramamine (which she has used prn for a long time). Her BP was elevated at 187/107 which was attributed to her unwellness. She underwent a CTH which was read as remote bilateral lacunar infarcts, and a stable left frontal 7mm calcified mass thought to be a meningioma (stable since 2007). Unfortunately, the images were not available for me to view. They attributed her hallucinations to dramamine, though she doesn't use it very often and has hallucinations even when not taking it. She followed up with her PCP on 04/29/19 who thought propranolol could be contributing to her hallucinations (she has been on it for years), but was also concerned about her bradycardia. She reduced propranolol from 80mg BID to 40mg BID. Her exam was significant for poor history and reduced word findings. A MMSE was performed and . Ms. Thornton presented back to the ER on 05/08/19 after an elevated home blood pressure >200 systolic. In the ER she noted bilateral LE numbness and tingling but this is chronic per the daughter, likely since her GBS in her 30s. Ms. Thornton also reported an episode of ?lightheadedness?, but the daughter did not know anything about it. Her exam was significant for a BP of 252/146 and a Cr of 1.16 (baseline 0.9). She was also noted to have right face weakness and dysarthria, but these are also chronic/baseline per family. Since admission, her BPs have slowly improved. She is off beta-blockers due to ongoing bradycardia. She continues to have intermittent hallucinations, even one during the daytime today. None have been disturbing. Occasionally, she can be frustrated with them. Ms. Thornton underwent a CTH upon admission which I reviewed personally. I did not see any evidence of prior infarcts (per daughter, ~10 years ago she was told that she had had mini-strokes in the past based on head imaging). The meningioma was also not visualized. It was overall unremarkable except for chronic right sinus disease. She underwent a brain MRI today which I was also able to review. She has no evidence of prior stroke. There were no acute findings either. She has only mild cerebral atrophy without any significant changes. Recent labs include B12 379, TSH 5.55, Free T4 1.00, and UA negative. She had a carotid ultrasound which showed no significant stenosis. It should be noted that Ms. Thornton has really tried to avoid medical care throughout her life. Ms. Thornton's daughter has not noted any significant memory/cognitive problems. Ms. Thornton continues to drive independently and manage her bills without any issues that she is aware of. Ms. Thornton's ability to ambulate has decreased over the years. Per daughter, Ms. Thornton notes leg weakness which she attributes to her GBS. She doesn't not use any assistive devices. She has had 2 falls in the last 1 year, both outside of the house. Consults Requesting physician: Natasha Ruiz Review of Systems Unobtainable due to mental status [facility] Medical History Acute infective polyneuritis (Inactive ~04/03/1966) Cerebrovascular accident (Chronic) 06/12 CT @ [facility]: SMALL LACUNAR INFARCTS. Incidental findings. 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 Impaired renal function disorder (Chronic) declines testing Intention tremor (Chronic) SECONDARY TO HYPOGLYCEMIA; NEUROLOGY W/U NEG.;on propranolol Macular degeneration (Acute) Meningioma (Acute) cerebral, left frontal, small, stable since 2007 Pneumonia (Inactive ~07/20/18) Surgical History Cholecystectomy (~1991) Fracture, Closed Treatment (04/10/14) LEFT SHOULDER FX AND DISLOCATED Status post extracapsular cataract extraction of left eye (Acute) Social History Smoking/Tobacco Use Status: Never Alcohol Intake: never Drug use: Never Substance use type: does not use Household members: none Do you feel safe at home: Yes Visit Medication and Allergies Active Medications Generic Name Dose Route Start Last Admin Trade Name Freq PRN Reason Stop Dose Admin Acetaminophen 0 mg 05/08/19 17:38 Tylenol PO Q4H PRN PRN Al Hydrox/Mg Hydrox/Simethicone 30 ml 05/08/19 17:38 Mylanta Liquid PO Q2H PRN PRN Amlodipine Besylate 5 mg 05/09/19 08:30 05/10/19 08:40 Norvasc PO 5 mg DAILY YISEL Administration Bisoprolol Fumarate 5 mg 05/10/19 08:30 05/10/19 08:40 Zebeta PO 5 mg DAILY YISEL Administration Cyanocobalamin 1,000 mcg 05/10/19 08:45 05/10/19 09:48 Vitamin B-12 IM/SC 1,000 mcg TODAY YISEL Administration Cyanocobalamin 1,000 mcg 05/11/19 08:30 Vitamin B-12 PO DAILY YISEL Dimethicone/Zinc Oxide 0 gm 05/08/19 17:38 Kit Protect Cream TP PRN PRN Docusate Sodium 100 mg 05/08/19 17:38 05/09/19 08:58 Colace PO 100 mg TID PRN PRN Administration Gadoterate Meglumine 19 ml 05/10/19 13:15 05/10/19 13:07 Dotarem IVP 06/09/19 23:59 19 ml DIRECTED YISLE Administration Heparin Sodium (Porcine) 25,000 units in 250 mls @ 10 mls/hr 05/09/19 19:30 05/10/19 14:46 IV 700 units/hr INFUSION YISEL 7 mls/hr Titration Protocol 1,000 UNITS/HR IV Miscellaneous Supplies 1 each 05/08/19 16:15 IV DIRECTED YISEL Magnesium Hydroxide 30 ml 05/08/19 17:38 Milk Of Magnesia PO DAILY PRN PRN Polyethylene Glycol 17 gm 05/08/19 17:38 Miralax PO DAILY PRN PRN Constipation Sodium Chloride 0 ml 05/08/19 16:06 Saline Flush 10 Ml Syringe IVP PRN PRN Sodium Chloride 10 ml 05/10/19 12:56 05/10/19 13:06 Saline Flush 10 Ml Syringe IVP 10 ml PRN PRN Administration Allergies Sulfa (Sulfonamide Antibiotics) Allergy (Unknown, Unverified 04/29/19 14:24) Exam Narrative Exam Narrative: Physical Exam: Patient not examined. Sedated after MRI and not awake enough to examine. Results Last Vital Signs Temp 36.5 C 05/10/19 15:35 Pulse 49 L 05/10/19 15:35 Resp 20 05/10/19 15:35 BP 147/82 H 05/10/19 15:35 Pulse Ox 98 05/10/19 15:35 Labs Result diagrams: 05/10/19 04:40 05/10/19 04:40 Labs: Laboratory Results - last 24 hr 05/09/19 05/09/19 05/09/19 19:36 19:36 19:36 WBC RBC Hgb Hct MCV MCH MCHC RDW Plt Count MPV Immature Gran % Neutrophils % Lymphocytes % Monocytes % Eosinophils % Basophils % Absolute Neutrophils Absolute Lymphocytes Absolute Monocytes Absolute Eosinophils Absolute Basophils PT 10.4 INR 1.0 APTT 26.8 Sodium 139 Potassium 4.2 Chloride 102 Carbon Dioxide 28.7 Anion Gap 8.3 BUN 30 H Creatinine 1.15 H Estimated GFR/1.73 m2 45.17 Glucose 165 H Calcium 9.4 Magnesium 2.0 Troponin I < 0.05 Vitamin B12 TSH 5.55 H Free T4 1.00 05/09/19 05/10/19 05/10/19 23:25 04:40 04:40 WBC 7.72 RBC 4.78 Hgb 14.2 Hct 42.7 MCV 89.3 MCH 29.7 MCHC 33.3 RDW 14.9 H Plt Count 174 MPV 11.2 H Immature Gran % 0.3 Neutrophils % 54.3 Lymphocytes % 33.9 Monocytes % 9.1 Eosinophils % 1.9 Basophils % 0.5 Absolute Neutrophils 4.19 Absolute Lymphocytes 2.62 Absolute Monocytes 0.70 Absolute Eosinophils 0.15 Absolute Basophils 0.04 PT INR APTT Sodium 141 Potassium 4.3 Chloride 105 Carbon Dioxide 28.0 Anion Gap 8.0 BUN 30 H Creatinine 0.93 Estimated GFR/1.73 m2 57.72 Glucose 110 H D Calcium 9.3 Magnesium 2.1 Troponin I < 0.05 Vitamin B12 TSH Free T4 05/10/19 05/10/19 05/10/19 04:40 04:40 11:35 WBC RBC Hgb Hct MCV MCH MCHC RDW Plt Count MPV Immature Gran % Neutrophils % Lymphocytes % Monocytes % Eosinophils % Basophils % Absolute Neutrophils Absolute Lymphocytes Absolute Monocytes Absolute Eosinophils Absolute Basophils PT INR APTT 109.7 H* D 53.7 H D Sodium Potassium Chloride Carbon Dioxide Anion Gap BUN Creatinine Estimated GFR/1.73 m2 Glucose Calcium Magnesium Troponin I < 0.05 Vitamin B12 379 TSH Free T4
--- NOTE | 2019-05-10 15:53 | PT.INTREAT ---
Date of service: 05/10/19 Time of Service: 15:53 PT Notes Visit Reasons: HYPERTENSIVE EMERGENCY Inpatient Physical Therapy Treatment Note [facility] Date: 05/10/19 PRECAUTIONS: Fall SUBJECTIVE: Meredith states that she is feeling pretty good. She is agreeable to participating in PT this afternoon. OBJECTIVE: PAIN: No c/o pain BED MOBILITY/TRANSFERS Supine-sit: I with HOB flat Sit-supine: I with HOB flat Sit-stand: S Stand-sit: S GAIT Assistive Device: No AD SPC 4WW Weight bearing: Full Assist: CGA without AD and with SPC SBA with 4WW Distance: 50' without AD 100' with SPC 150' with 4WW Deviation: Improved steadiness and without gait deviation with 4WW versus without AD and with SPC STAIRS: Up/down 3x4 using B rails and a step-to pattern with supervision ASSESSMENT: Patient tolerated session well without complaint. She demonstrates improved gait mechanics as well as safety with ambulation while using 4WW versus without AD or with SPC support. Patient would benefit from continued gait training with 4WW to familiarize herself with device, as well as global conditioning for improved mobility. PLAN: Continue with PT's POC TREATMENT CODE/TIME: 30 minutes; 91929 x2
--- NOTE | 2019-05-10 17:37 | PDOC.CMPRO ---
- If Service Date Differs Date of service: 05/10/19 Time of Service: 17:37 Care Management Progress Note S/O: Meredith was sitting up in her bed when CM met with her. Her daughter, Yris was in the room with her. Meredith reported that she had just come back to her room from having an MRI. She was awaiting the results from the provider. PT consulted CM regarding DME needs. PT is recommending that she have a 4WW upon discharge, if possible. CM will inquire to Lalo to see if a 4WW will be covered by her insurance. CM will continue to follow. A: Meredith is an 83 year old woman admitted on 05/08/2019 with a hypertensive emergency. P: Anticipate Meredith will return home when medically cleared with no additional services. She will follow up with her PCP, as recommended. She has a scheduled visit on 07/22/2019. Her daughter will milk truck driver her home when medically ready. CM will continue to follow.
--- NOTE | 2019-05-10 18:49 | W.PM.PROGNOT ---
Date of Service Date of service: 05/10/19 Time of Service: 17:30 Assessment and Plan Assessment and plan (1) Hypertensive urgency: Status: Resolved Assessment and plan: BP's much better with norvasc and addition of bisoprolol overnight - however, the HR is now 49 on latest vitals. Holding parameters to be placed on bisoprolol. Consider switching to a calcium channel andrew with both AV jeffry and BP effect such as cardizem. . (2) Prerenal azotemia: Status: Resolved Assessment and plan: Clinically resolved. Recheck Cr in am. (3) Afib: Status: Acute Assessment and plan: Paroxysmal. Back to NSR. Monitor on tele. On heparin gtt at this time - Consider transitioning to a DOAC on discharge. (4) Hallucination: Status: Acute Assessment and plan: acute on Chronic. ?possible that this is a side effect of medication. The hallucination happened this morning and with a reasonable BP and propranolol not on board, however. Will need a formal neurology eval, whether as inpatient or outpatient. (5) Intention tremor: Status: Chronic Assessment and plan: Follow up as outpatient. (6) DVT prophylaxis: Status: Acute Assessment and plan: TEDs/SCDs. On therapeutic heparin gtt. (7) Discharge planning issues: Status: Acute Assessment and plan: Full code Plan for discharge home tomorrow Subjective Subjective Interval history since last seen: Ms Thornton was seen 3 times today. The first time was circa 8:25 am, when she reported seeing that the room was shaking to the left of her. She concurrently was having numbness in her 4th and 5th digit RUE - she was sitting in a chair with her elbow on the arm rest. Otherwise, she had reported her headache getting better. Denies chest pain, shortness of breath, nausea. 2nd time the patient was walking in the hallway and doing quite well with PT. The 3rd time she was asleep in her bed after her MRI. She went into rate-controlled Afib overnight (90's) and was initiated on bisoprolol. Exam Narrative Exam Narrative: General: very pleasant elderly female, seen 3 times today - sitting in a chair, ambulating, laying down flat in bed asleep HEENT: EOMI, MMM Heart: RRR, no m/r/g Lungs: CTAB GI: abdomen is soft, nontender, nondistended Extremities: no e/c/c BLE's Objective Objective Clinical Data: Abnormal lab results 05/09/19 05/10/19 05/10/19 Range/Units 19:36 04:40 04:40 RDW 14.9 H (11.7-14.6) % MPV 11.2 H (8.0-11.0) fL APTT (21.0-31.4) sec BUN 30 H 30 H (7-18) mg/dL Creatinine 1.15 H (0.55-1.02) mg/dL Glucose 165 H 110 H D (74-106) mg/dL TSH 5.55 H (0.36-3.74) uIU/mL 05/10/19 05/10/19 Range/Units 04:40 11:35 RDW (11.7-14.6) % MPV (8.0-11.0) fL APTT 109.7 H* D 53.7 H D (21.0-31.4) sec BUN (7-18) mg/dL Creatinine (0.55-1.02) mg/dL Glucose (74-106) mg/dL TSH (0.36-3.74) uIU/mL Vital Signs Temperature 36.5 C 05/10/19 15:35 Temperature Source Tympanic 05/10/19 15:35 Pulse 49 L 05/10/19 15:35 Pulse Rhythm Irregular 05/10/19 16:43 Pulse 53 L 05/10/19 03:00 Respiratory Rate 20 05/10/19 15:35 Respiratory Effort Non-Labored 05/10/19 16:43 Respiratory Depth Normal 05/10/19 16:43 Respiratory Pattern Normal 05/10/19 16:43 Blood Pressure 147/82 H 05/10/19 15:35 Blood Pressure Mean 84 05/10/19 00:10 Blood Pressure Position Supine 05/10/19 00:10 Pulse Oximetry 98 05/10/19 15:35 Oxygen Delivery Method Room Air 05/10/19 15:35 Oxygen Flow Rate 0 05/10/19 15:35 Pain Level 0 05/10/19 15:35 Intake & Output 05/09/19 05/10/19 05/10/19 23:59 11:59 23:59 Intake Total 920.833 / 1906.166 573.833 / 1065.016 491.183 / 1065.016 Output Total 1500 / 2350 300 / 300 Balance -579.167 / -443.834 273.833 / 765.016 491.183 / 765.016 Weight 87.1 kg Intake: IV 560.833 / 1186.166 93.833 / 135.016 41.183 / 135.016 Oral 360 / 720 480 / 930 450 / 930 Output: Urine 1500 / 2350 300 / 300 Other: Urine Color Yellow Yellow Urine Appearance Clear Clear Clear Urine Odor None Normal Stool Occult Blood Negative Stool Size Moderate Stool Characteristics Soft Brown Voiding Methods Bedside Commode Toilet Laboratory Results WBC 7.72 k/cumm (4.4-10.8) 05/10/19 04:40 RBC 4.78 m/cumm (4.00-5.20) 05/10/19 04:40 Hgb 14.2 g/dL (12.0-15.5) 05/10/19 04:40 Hct 42.7 % (36.0-46.0) 05/10/19 04:40 MCV 89.3 fL (80-95) 05/10/19 04:40 MCH 29.7 pg (27.0-33.0) 05/10/19 04:40 MCHC 33.3 g/dL (32.0-36.0) 05/10/19 04:40 RDW 14.9 % (11.7-14.6) H 05/10/19 04:40 Plt Count 174 x1000/uL (130-400) 05/10/19 04:40 MPV 11.2 fL (8.0-11.0) H 05/10/19 04:40 Immature Gran % 0.3 % 05/10/19 04:40 Neutrophils % 54.3 05/10/19 04:40 Lymphocytes % 33.9 05/10/19 04:40 Monocytes % 9.1 05/10/19 04:40 Eosinophils % 1.9 05/10/19 04:40 Basophils % 0.5 05/10/19 04:40 Absolute Neutrophils 4.19 k/cumm (1.2-6.7) 05/10/19 04:40 Absolute Lymphocytes 2.62 k/cumm (1.2-3.4) 05/10/19 04:40 Absolute Monocytes 0.70 k/cumm (0.11-0.7) 05/10/19 04:40 Absolute Eosinophils 0.15 k/cumm (0.0-0.7) 05/10/19 04:40 Absolute Basophils 0.04 k/cumm (0.0-0.2) 05/10/19 04:40 PT 10.4 sec (9.3-11.0) 05/09/19 19:36 INR 1.0 (0.9-1.1) 05/09/19 19:36 APTT 53.7 sec (21.0-31.4) H D 05/10/19 11:35 Sodium 141 mmol/L (136-145) 05/10/19 04:40 Potassium 4.3 mmol/L (3.5-5.1) 05/10/19 04:40 Chloride 105 mmol/L (98-107) 05/10/19 04:40 Carbon Dioxide 28.0 mmol/L (21.0-32.0) 05/10/19 04:40 Anion Gap 8.0 mmol/L (3-11) 05/10/19 04:40 BUN 30 mg/dL (7-18) H 05/10/19 04:40 Creatinine 0.93 mg/dL (0.55-1.02) 05/10/19 04:40 Estimated GFR/1.73 m2 57.72 (mL/min/1.73m2) 05/10/19 04:40 Glucose 110 mg/dL (74-106) H D 05/10/19 04:40 Calcium 9.3 mg/dL (8.5-10.1) 05/10/19 04:40 Magnesium 2.1 mg/dL (1.8-2.4) 05/10/19 04:40 Total Bilirubin 0.6 mg/dL (0.2-1.0) 05/08/19 15:20 AST 26 U/L (15-37) 05/08/19 15:20 ALT 20 U/L (14-59) 05/08/19 15:20 Alkaline Phosphatase 141 U/L (46-116) H 05/08/19 15:20 Troponin I < 0.05 ng/Ml (<0.06) 05/10/19 04:40 Total Protein 7.8 g/dL (6.4-8.2) 05/08/19 15:20 Albumin 3.8 g/dL (3.4-5.0) 05/08/19 15:20 Vitamin B12 379 pg/mL (193-986) 05/10/19 04:40 TSH 5.55 uIU/mL (0.36-3.74) H 05/09/19 19:36 Free T4 1.00 ng/dL (0.76-1.46) 05/09/19 19:36 Urine Color Yellow (Yellow) 05/08/19 16:46 Urine Clarity Clear (Clear) 05/08/19 16:46 Urine pH 6.5 (5-8) 05/08/19 16:46 Ur Specific [place] 1.010 (1.005-1.025) 05/08/19 16:46 Urine Protein Negative mg/dL (Negative) 05/08/19 16:46 Urine Ketones Negative mg/dL (Negative) 05/08/19 16:46 Urine Blood Negative (Negative) 05/08/19 16:46 Urine Nitrite Negative (Negative) 05/08/19 16:46 Urine Bilirubin Negative (Negative) 05/08/19 16:46 Urine Urobilinogen 0.2 EU/dL (Up TO 0.2) 05/08/19 16:46 Ur Leukocyte Esterase Negative (Negative) 05/08/19 16:46 Urine Glucose Negative mg/dL (Negative) 05/08/19 16:46 MRI brain: Right-sided sinus disease. No acute abnormalities seen of the brain. US carotid: Calcific plaque in the common carotid bulbs. No significant internal carotid artery stenosis.
[2019-05-10 21:06] LABS: PTT Activated 46.6 sec (21.0-31.4)
[2019-05-11] VITALS (10 sets, daily range): BP systolic 136–185; BP diastolic 62–96; PULSE 48–60; RESP 16–20; TEMP 36–37; O2SAT 95–98
[2019-05-11 07:40] LABS: Abs Immature Grans 0.01 k/cumm (0.0-0.09); Absolute Basophil Count 0.03 k/cumm (0.0-0.2); Absolute Eosinophil Count 0.18 k/cumm (0.0-0.7); Absolute Lymphocyte Count 2.04 k/cumm (1.2-3.4); Absolute Monocyte Count 0.59 k/cumm (0.11-0.7); Absolute Neutrophil Count 3.66 k/cumm (1.2-6.7); Basophils % 0.5; Eosinophils % 2.8; HCT 43.6 % (36.0-46.0); HGB 14.2 g/dL (12.0-15.5); Immature Grans % 0.2 %; Lymphocytes % 31.3; Mean Corp. HGB Concentration 32.6 g/dL (32.0-36.0); Mean Corpuscular Hemoglobin 29.4 pg (27.0-33.0); Mean Corpuscular Volume 90.3 fL (80-95); Mean Platelet Volume 11.2 fL (8.0-11.0); Monocytes % 9.1; Neutrophils % 56.1; Platelet Count 179 x1000/uL (130-400); RBC 4.83 m/cumm (4.00-5.20); White Blood Cell Count 6.51 k/cumm (4.4-10.8)
[2019-05-11 07:46] LABS: Anion Gap 7.2 mmol/L (3-11); BUN 24 mg/dL (7-18); CO2 29.8 mmol/L (21.0-32.0); CREATININE 0.84 mg/dL (0.55-1.02); Calcium 9.4 mg/dL (8.5-10.1); Chloride 105 mmol/L (98-107); Glucose 101 mg/dL (74-106); Potassium 4.4 mmol/L (3.5-5.1); Sodium 142 mmol/L (136-145)
[2019-05-11] MEDS: amLODIPine 5 MG TAB PO ×2 (08:08→12:43)
[2019-05-11] MEDS: Bisoprolol 5 MG TAB PO (08:11)
[2019-05-11] MEDS: Cyanocobalamin 500 MCG TAB 1000 MCG PO (08:11)
--- NOTE | 2019-05-11 09:03 | PDOC.CMDIS ---
LACE Index Scoring Tool - Questions: Length of Stay (in days): 3 Acuity (Admit via E.D.?): Yes Comorbidities: Mild Liver/Renal Disease, Any Tumor E.D. Visits: 2 - Answers: Total Score: 13 Risk of Readmission: High Risk Care Management Discharge Reason for Hospitalization: Hypertensive emergancy Discharge Plan: Meredith will return home when medically cleared, her daughter Yris will be staying with her for a few days. Meredith will follow up with her PCP (scheduled visit on 07/22/2019), and discharge plan as recommended. Her daughter will transport home via private vehicle. CM supported coordination of 4WW prescription through [facility], [place] per patient preference-for outpatient attainment per PT and MD orders. Patient/Family Education Needs: Review discharge instructions, discuss Ask Me Three. Services Needed at Discharge: DME Agency ([facility], [place] 4WW)
--- NOTE | 2019-05-11 10:16 | PT.INTREAT ---
Date of service: 05/11/19 Time of Service: 10:16 PT Notes Visit Reasons: HYPERTENSIVE EMERGENCY Inpatient Physical Therapy Treatment Note [facility] Date: 05/11/19 PRECAUTIONS: Fall SUBJECTIVE: Meredith is agreeable to participating in PT. She is hopeful that she will return home today. She reports that her daughter, Yris, will be staying with her at her home for a little when she returns home. OBJECTIVE: PAIN: No c/o pain BED MOBILITY/TRANSFERS Sit-stand: I Stand-sit: I GAIT Assistive Device: 4WW Weight bearing: Full Assist: S Distance: 250' x2 Deviation: Steady gait, appropriate pacing, seated rest x1 THEREX: Patient completed a LE strengthening program in a standing position, including functional step-ups, as per flow sheet. ASSESSMENT: Patient tolerated session well without complaint. She was able to tolerate a progression in gait distance with 4WW support with supervision, demonstrating steady gait and appropriate pacing. PLAN: Continue with PT's POC TREATMENT CODE/TIME: 30 minutes; [id number], [id number]
--- NOTE | 2019-05-11 12:37 | PGE_ITS ---
Date of Service Date of service: 05/11/19 Time of Service: 12:37 Assessment and Plan Assessment and plan (1) Hypertensive urgency: Status: Acute Assessment and plan: BP's are climbing up again. Increase norvasc. I am having to decrease bisoprolol, however, due to lower HR. Will continue to monitor in the hospital. (2) Prerenal azotemia: Status: Resolved Assessment and plan: Clinically resolved. (3) Afib: Status: Acute Assessment and plan: Paroxysmal. Back to NSR. Continue tele. D/c heparin gtt. Patient is to discuss whether or not to be on blood thinners with her PCP and with Dr Vale. Decision can be made as outpatient. (4) Hallucination: Status: Acute Assessment and plan: acute on Chronic. ?possible that this is a side effect of medication. Awaiting neurology opinion. (5) Intention tremor: Status: Chronic Assessment and plan: Follow up as outpatient. (6) DVT prophylaxis: Status: Acute Assessment and plan: TEDs/SCDs. Discontinuing heparin gtt. (7) Discharge planning issues: Status: Acute Assessment and plan: Full code Plan for discharge home tomorrow Subjective Subjective Interval history since last seen: SBP >170 manually on latest recheck. Patient/daughter do not feel safe going home like this. Overnight, no Afib, SB 43-53. At this time, HR is in high 50's. No pain, dizziness, chest pain, shortness of breath, n/v. Patient is not sure whether she wants to be on a blood thinner after a long discussion I had with her. She would like to talk to her PCP about it and make that decision later. She did not want to continue heparin gtt. Exam Narrative Exam Narrative: General: very pleasant elderly female, Sitting comfortably in a chair, A&Ox3 HEENT: EOMI, MMM Heart: RRR, no m/r/g Lungs: coarse breath sounds B GI: abdomen is soft, nontender, nondistended Extremities: trace edema at B ankles; wearing TEDs/SCDs. Objective Objective Clinical Data: Abnormal lab results 05/10/19 05/11/19 05/11/19 Range/Units 20:33 07:00 07:00 RDW 15.0 H (11.7-14.6) % MPV 11.2 H (8.0-11.0) fL APTT 46.6 H (21.0-31.4) sec BUN 24 H (7-18) mg/dL Vital Signs Temperature 36.8 C 05/11/19 07:34 Temperature Source Tympanic 05/11/19 07:34 Pulse 59 L 05/11/19 07:34 Pulse Rhythm Regular 05/11/19 10:32 Pulse 53 L 05/10/19 03:00 Respiratory Rate 17 05/11/19 07:34 Respiratory Effort 05/11/19 10:32 Respiratory Depth Normal 05/11/19 10:32 Respiratory Pattern Normal 05/11/19 10:32 Blood Pressure 143/70 H 05/11/19 07:34 Blood Pressure Mean 84 05/10/19 00:10 Blood Pressure Position Supine 05/10/19 00:10 Pulse Oximetry 95 05/11/19 07:34 Oxygen Delivery Method Room Air 05/11/19 07:34 Oxygen Flow Rate 0 05/11/19 07:34 Pain Level 0 05/11/19 07:34 Intake & Output 05/10/19 05/11/19 05/11/19 23:59 11:59 23:59 Intake Total 537.850 / 1111.683 725.4 / 788.05 62.65 / 788.05 Balance 537.850 / 811.683 725.4 / 788.05 62.65 / 788.05 Weight 88 kg Intake: IV 87.850 / 181.683 85.4 / 148.05 62.65 / 148.05 Oral 450 / 930 640 / 640 Other: Urine Color Yellow Urine Appearance Clear Clear Urine Odor Normal Comment patient voided independently Voiding Methods Toilet Toilet Laboratory Results WBC 6.51 k/cumm (4.4-10.8) 05/11/19 07:00 RBC 4.83 m/cumm (4.00-5.20) 05/11/19 07:00 Hgb 14.2 g/dL (12.0-15.5) 05/11/19 07:00 Hct 43.6 % (36.0-46.0) 05/11/19 07:00 MCV 90.3 fL (80-95) 05/11/19 07:00 MCH 29.4 pg (27.0-33.0) 05/11/19 07:00 MCHC 32.6 g/dL (32.0-36.0) 05/11/19 07:00 RDW 15.0 % (11.7-14.6) H 05/11/19 07:00 Plt Count 179 x1000/uL (130-400) 05/11/19 07:00 MPV 11.2 fL (8.0-11.0) H 05/11/19 07:00 Immature Gran % 0.2 % 05/11/19 07:00 Neutrophils % 56.1 05/11/19 07:00 Lymphocytes % 31.3 05/11/19 07:00 Monocytes % 9.1 05/11/19 07:00 Eosinophils % 2.8 05/11/19 07:00 Basophils % 0.5 05/11/19 07:00 Absolute Neutrophils 3.66 k/cumm (1.2-6.7) 05/11/19 07:00 Absolute Lymphocytes 2.04 k/cumm (1.2-3.4) 05/11/19 07:00 Absolute Monocytes 0.59 k/cumm (0.11-0.7) 05/11/19 07:00 Absolute Eosinophils 0.18 k/cumm (0.0-0.7) 05/11/19 07:00 Absolute Basophils 0.03 k/cumm (0.0-0.2) 05/11/19 07:00 PT 10.4 sec (9.3-11.0) 05/09/19 19:36 INR 1.0 (0.9-1.1) 05/09/19 19:36 APTT 46.6 sec (21.0-31.4) H 05/10/19 20:33 Sodium 142 mmol/L (136-145) 05/11/19 07:00 Potassium 4.4 mmol/L (3.5-5.1) 05/11/19 07:00 Chloride 105 mmol/L (98-107) 05/11/19 07:00 Carbon Dioxide 29.8 mmol/L (21.0-32.0) 05/11/19 07:00 Anion Gap 7.2 mmol/L (3-11) 05/11/19 07:00 BUN 24 mg/dL (7-18) H 05/11/19 07:00 Creatinine 0.84 mg/dL (0.55-1.02) 05/11/19 07:00 Estimated GFR/1.73 m2 >= 60.00 (mL/min/1.73m2) 05/11/19 07:00 Glucose 101 mg/dL (74-106) 05/11/19 07:00 Calcium 9.4 mg/dL (8.5-10.1) 05/11/19 07:00 Magnesium 2.0 mg/dL (1.8-2.4) 05/11/19 07:00 Total Bilirubin 0.6 mg/dL (0.2-1.0) 05/08/19 15:20 AST 26 U/L (15-37) 05/08/19 15:20 ALT 20 U/L (14-59) 05/08/19 15:20 Alkaline Phosphatase 141 U/L (46-116) H 05/08/19 15:20 Troponin I < 0.05 ng/Ml (<0.06) 05/10/19 04:40 Total Protein 7.8 g/dL (6.4-8.2) 05/08/19 15:20 Albumin 3.8 g/dL (3.4-5.0) 05/08/19 15:20 Vitamin B12 379 pg/mL (193-986) 05/10/19 04:40 TSH 5.55 uIU/mL (0.36-3.74) H 05/09/19 19:36 Free T4 1.00 ng/dL (0.76-1.46) 05/09/19 19:36 Urine Color Yellow (Yellow) 05/08/19 16:46 Urine Clarity Clear (Clear) 05/08/19 16:46 Urine pH 6.5 (5-8) 05/08/19 16:46 Ur Specific [place] 1.010 (1.005-1.025) 05/08/19 16:46 Urine Protein Negative mg/dL (Negative) 05/08/19 16:46 Urine Ketones Negative mg/dL (Negative) 05/08/19 16:46 Urine Blood Negative (Negative) 05/08/19 16:46 Urine Nitrite Negative (Negative) 05/08/19 16:46 Urine Bilirubin Negative (Negative) 05/08/19 16:46 Urine Urobilinogen 0.2 EU/dL (Up TO 0.2) 05/08/19 16:46 Ur Leukocyte Esterase Negative (Negative) 05/08/19 16:46 Urine Glucose Negative mg/dL (Negative) 05/08/19 16:46
--- NOTE | 2019-05-11 16:05 | W.PM.PROGNOT ---
Date of Service Date of service: 05/11/19 Time of Service: 16:05 Assessment and Plan Assessment and plan (1) Hallucination: Status: Acute (2) Essential tremor: Status: Acute (3) Gait abnormality: Status: Acute (4) Afib: Status: Acute Assessment and plan: Ms. Thornton is an 83 year-old, right-handed woman who was admitted for hypertensive urgency and mild MARK. #1. Hallucinations. Her clinical history and exam are significant for mild cognitive impairment. I suspect her symptoms represent an early non-AD dementia, but kirsty't make a definitive diagnosis at this time. Her symptoms are not due to BP, stroke, medications, vision, or illness. #2. Bilateral LE tingling and gait imbalance. Her exam is consistent with a peripheral neuropathy, though she surprisingly has excellent ankle reflexes. 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 I will try to get her remote [facility] records from ~10 years ago to see if there is any info on her symptoms. Her symptoms are not painful and thus no treatment needed. I agree with PT and their recs of assistive devices to prevent falls. #3. Essential Tremor. Her tremor has not been bothersome in the hospital while off propranolol. Let's hold off on medications at this time. I am very hesitant to start primidone in this older lady who lives alone. We can consider gabapentin. She has been reluctant to use prescription medications in the past. We'll discuss options in clinic at follow-up. #4. Paroxysmal afib. Agree she is at moderate-high risk for stroke with low-moderate risk of bleeding. Anticoagulation is recommended. She is reluctant to start anticoagulation at this time. She should follow-up in the neurology clinic in 4-6 weeks. Qualifiers: Atrial fibrillation type: paroxysmal Qualified Code(s): I48.0 - Paroxysmal atrial fibrillation Subjective Subjective Interval history since last seen: She continues to have hallucinations. Some are well formed- described 2 golfers in colorful plaid clothes; while some others are not - sensation of movement in her periphery. Also noted to have new onset p. afib on tele. Primary team discussed anticoagulation and she is declining at this point. BPs still high and meds are being adjusted. Off propranolol and hasn't noted tremor to be too bad. Not interfering with activities in the hospital. Has a pretty significant chin tremor and she is aware that it is more than it usually is. Sister also has severe ET. Patient was diagnosed 10+ years ago at [facility]. Hasn't followed with neurology. 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 Rehabbed for over a year and doesn't think she gained complete strength in her legs. Had bilateral LE paraesthesias at that time. She isn't sure if they ever went away. She thinks she has had tingling in her legs only since this hospital visit. Daughter notes that Ms. Thornton has been complaining of tingling in her legs for at least 10 years if not longer. It is not painful for her. Exam Narrative Exam Narrative: Physical Exam: Gen: Patient of apparent stated age, NAD Head and face: no facial or cranial abnormalities Neck: Supple, no meningismus, no occipital tenderness CV: RRR, no murmur Resp: CTA B/L Abd: soft, nontender, nondistended Ext: Mild bilateral LE edema. No clubbing or cyanosis. No bony deformity. Neuro Exam: Language: fluency, naming, repetition, and comprehension intact; Mental Status: AAOx3, current events generally intact, fund of knowledge impaired for recent and remote events; recalled 1/3 on delay; 3/5 on serial 7s Speech: no dysarthria Cranial nerves: Funduscopy: not performed CN II: visual meehan intact CN III, IV, : extraocular movements intact but with reduced saccades, no nystagmus, pupils symmetric and reactive to light CN V: face sensation intact to LT and PP CN VII: no facial asymmetry noted CN VIII: hearing intact bilaterally CN IX, X: palate rises symmetrically CN XI: trapezius/SCM 5/5 bilaterally CN XII: protrudes tongue symmetrically Sensory: intact to LT and joint position in all extremities; reduced PP and vibration to the knees bilaterally; +Romberg Motor: bulk and tone intact. Fine motor movements intact bilaterally. No pronator drift. Strength 5/5 throughout including the deltoids, biceps, triceps, wrist extensors, hip flexors, knee flexors, knee extensors, ankle flexors, and ankle extensors. Mild bilateral UE postureal tremor, worse with movement, R=L. Frequent chin tremor. Reflexes: 2+ at the biceps, triceps, brachioradialis, patella, and achilles (!) tendons bilaterally; toes down going bilaterally; neg [place]/Tromner; Coordination: FTN and HTS intact bilaterally with mild-moderate bilateral UE dysmetria Gait: wide based gait; using a rolling walker; Objective Objective Clinical Data: Abnormal lab results 05/10/19 05/11/19 05/11/19 Range/Units 20:33 07:00 07:00 RDW 15.0 H (11.7-14.6) % MPV 11.2 H (8.0-11.0) fL APTT 46.6 H (21.0-31.4) sec BUN 24 H (7-18) mg/dL Vital Signs Temperature 36.9 C 05/11/19 11:40 Temperature Source Tympanic 05/11/19 11:40 Pulse 51 L 05/11/19 15:00 Pulse Rhythm Regular 05/11/19 10:32 Pulse 53 L 05/10/19 03:00 Respiratory Rate 18 05/11/19 11:40 Respiratory Effort 05/11/19 10:32 Respiratory Depth Normal 05/11/19 10:32 Respiratory Pattern Normal 05/11/19 10:32 Blood Pressure 172/96 H 05/11/19 12:39 Blood Pressure Mean 84 05/10/19 00:10 Blood Pressure Position Supine 05/10/19 00:10 Pulse Oximetry 95 05/11/19 11:40 Oxygen Delivery Method Room Air 05/11/19 11:40 Oxygen Flow Rate 0 05/11/19 11:40 Pain Level 0 05/11/19 11:40 Intake & Output 05/10/19 05/11/19 05/11/19 23:59 11:59 23:59 Intake Total 537.850 / 1111.683 725.4 / 788.05 62.65 / 788.05 Balance 537.850 / 811.683 725.4 / 788.05 62.65 / 788.05 Weight 88 kg Intake: IV 87.850 / 181.683 85.4 / 148.05 62.65 / 148.05 Oral 450 / 930 640 / 640 Other: Urine Color Yellow Urine Appearance Clear Clear Urine Odor Normal Comment patient voided independently Voiding Methods Toilet Toilet Laboratory Results WBC 6.51 k/cumm (4.4-10.8) 05/11/19 07:00 RBC 4.83 m/cumm (4.00-5.20) 05/11/19 07:00 Hgb 14.2 g/dL (12.0-15.5) 05/11/19 07:00 Hct 43.6 % (36.0-46.0) 05/11/19 07:00 MCV 90.3 fL (80-95) 05/11/19 07:00 MCH 29.4 pg (27.0-33.0) 05/11/19 07:00 MCHC 32.6 g/dL (32.0-36.0) 05/11/19 07:00 RDW 15.0 % (11.7-14.6) H 05/11/19 07:00 Plt Count 179 x1000/uL (130-400) 05/11/19 07:00 MPV 11.2 fL (8.0-11.0) H 05/11/19 07:00 Immature Gran % 0.2 % 05/11/19 07:00 Neutrophils % 56.1 05/11/19 07:00 Lymphocytes % 31.3 05/11/19 07:00 Monocytes % 9.1 05/11/19 07:00 Eosinophils % 2.8 05/11/19 07:00 Basophils % 0.5 05/11/19 07:00 Absolute Neutrophils 3.66 k/cumm (1.2-6.7) 05/11/19 07:00 Absolute Lymphocytes 2.04 k/cumm (1.2-3.4) 05/11/19 07:00 Absolute Monocytes 0.59 k/cumm (0.11-0.7) 05/11/19 07:00 Absolute Eosinophils 0.18 k/cumm (0.0-0.7) 05/11/19 07:00 Absolute Basophils 0.03 k/cumm (0.0-0.2) 05/11/19 07:00 PT 10.4 sec (9.3-11.0) 05/09/19 19:36 INR 1.0 (0.9-1.1) 05/09/19 19:36 APTT 46.6 sec (21.0-31.4) H 05/10/19 20:33 Sodium 142 mmol/L (136-145) 05/11/19 07:00 Potassium 4.4 mmol/L (3.5-5.1) 05/11/19 07:00 Chloride 105 mmol/L (98-107) 05/11/19 07:00 Carbon Dioxide 29.8 mmol/L (21.0-32.0) 05/11/19 07:00 Anion Gap 7.2 mmol/L (3-11) 05/11/19 07:00 BUN 24 mg/dL (7-18) H 05/11/19 07:00 Creatinine 0.84 mg/dL (0.55-1.02) 05/11/19 07:00 Estimated GFR/1.73 m2 >= 60.00 (mL/min/1.73m2) 05/11/19 07:00 Glucose 101 mg/dL (74-106) 05/11/19 07:00 Calcium 9.4 mg/dL (8.5-10.1) 05/11/19 07:00 Magnesium 2.0 mg/dL (1.8-2.4) 05/11/19 07:00 Total Bilirubin 0.6 mg/dL (0.2-1.0) 05/08/19 15:20 AST 26 U/L (15-37) 05/08/19 15:20 ALT 20 U/L (14-59) 05/08/19 15:20 Alkaline Phosphatase 141 U/L (46-116) H 05/08/19 15:20 Troponin I < 0.05 ng/Ml (<0.06) 05/10/19 04:40 Total Protein 7.8 g/dL (6.4-8.2) 05/08/19 15:20 Albumin 3.8 g/dL (3.4-5.0) 05/08/19 15:20 Vitamin B12 379 pg/mL (193-986) 05/10/19 04:40 TSH 5.55 uIU/mL (0.36-3.74) H 05/09/19 19:36 Free T4 1.00 ng/dL (0.76-1.46) 05/09/19 19:36 Urine Color Yellow (Yellow) 05/08/19 16:46 Urine Clarity Clear (Clear) 05/08/19 16:46 Urine pH 6.5 (5-8) 05/08/19 16:46 Ur Specific [place] 1.010 (1.005-1.025) 05/08/19 16:46 Urine Protein Negative mg/dL (Negative) 05/08/19 16:46 Urine Ketones Negative mg/dL (Negative) 05/08/19 16:46 Urine Blood Negative (Negative) 05/08/19 16:46 Urine Nitrite Negative (Negative) 05/08/19 16:46 Urine Bilirubin Negative (Negative) 05/08/19 16:46 Urine Urobilinogen 0.2 EU/dL (Up TO 0.2) 05/08/19 16:46 Ur Leukocyte Esterase Negative (Negative) 05/08/19 16:46 Urine Glucose Negative mg/dL (Negative) 05/08/19 16:46
--- NOTE | 2019-05-11 18:55 | PDOC.CMPRO ---
Care Management Progress Note S/O: Meredith was sitting up in her chair when CM met her. Her daughter, Yris was in the room with her. Meredith was being monitored by MD and RN due to BP issues. MD at this time informed CM that Meredith would not be discharging today, as planned. CM will continue to follow. A: Meredith is an 83 year old woman admitted on 05/08/2019 with a hypertensive emergency. P: Meredith will return home when medically cleared, her daughter Yris will be staying with her for a few days and will transport Meredith via private vehicle. Meredith will follow up with her PCP (scheduled visit on 07/22/2019), and discharge plan as recommended. Her daughter will transport home via private vehicle. CM supported coordination of 4WW prescription through [facility] per patient preference-for outpatient attainment per PT and MD orders.
[2019-05-12 04:45] VITALS: BP 130/78; PULSE 53; RESP 18; TEMP 36.7; O2SAT 96
[2019-05-12 07:25] LABS: BUN 28 mg/dL (7-18); CREATININE 0.88 mg/dL (0.55-1.02); Calcium 9.6 mg/dL (8.5-10.1); Chloride 104 mmol/L (98-107); Glucose 130 mg/dL (74-106); Potassium 4.2 mmol/L (3.5-5.1); Sodium 141 mmol/L (136-145)
[2019-05-12] MEDS: amLODIPine 10 MG TAB PO (07:38)
[2019-05-12] MEDS: Cyanocobalamin 500 MCG TAB 1000 MCG PO (07:38)
[2019-05-12] MEDS: Normal Saline Flush 10 ML SYR IVP ×2 (07:39→10:09)
[2019-05-12 07:40] VITALS: BP 137/69; PULSE 49; RESP 20; TEMP 36.8; O2SAT 95
[2019-05-12 08:57] VITALS: PULSE 67
[2019-05-12 11:45] VITALS: BP 152/61; PULSE 59; RESP 18; TEMP 36.7; O2SAT 94
--- NOTE | 2019-05-12 13:38 | DSE_ITS ---
Date of service: 05/12/19 Time of Service: 13:38 DS: Diagnosis Discharge Diagnosis (1) Hypertensive urgency: Status: Acute (2) Essential hypertension: Status: Chronic (3) Hallucination: Status: Acute (4) Essential tremor: Status: Acute (5) Gait abnormality: Status: Acute (6) Afib: Status: Acute Asessment and Plan: Not on anticoagulation at the time of discharge home (7) Prediabetes: Status: Acute Asessment and Plan: new diagnosis (8) B12 deficiency: Status: Acute (9) Meningioma: Status: Chronic Discharge Plan Disposition Patient Disposition: HOME Condition: Good Discharge Details Chief Complaint: GenMedical Reason For Visit: HYPERTENSIVE EMERGENCY Admit Date/Time: 05/08/19 17:37 Admit Provider: Sravan Reyes Attending Provider: Sravan Reyes Primary Care Provider: Camila Moreland ED Provider: Frederick Rowe [facility] Course Hospital Course: Ms Thornton is an 83 year old female with PMHx of hypertension, essential tremor, on propranolol therapy as outpatient, as well as h/o Guillian-Sedalia syndrome with residual BLE numbness and obesity with BMI of 34, who was admitted to [facility] ICU under the hospitalist service on 05/08/2019 with Hypertensive emergency with headache, nausea, reports of new BLE tingling, but also question of dysarthria. The patient's blood pressures were treated with cardene gtt, following which she was transitioned to oral amlodipine. Her propranolol was discontinued due to bradycardia in addition to reports of hallucinations going on for about two months which propranolol can cause. The patient was transferred out of the ICU on 05/09/2019. She had a negative stroke workup to include a negative CT of her head, MRI/MRA of her brain, no significant internal carotid artery stenosis on carotid ultrasound, though she did have calcific plaque in the bilateral common carotid bulbs. Her echocardiogram showed a preserved LVEF (70%), normal atria, and unremarkable valves. On the night of 05/10/2019, she developed self-limited rate controlled Afib, for which she was initiated on a low dose of bisoprolol, but the patient has had difficulty tolerating this due to heart rates that go down into 40's. This has now been discontinued. She is not sure about anticoagulation at this time and would like to think about it prior to starting it. It is expected that follow up discussion will occur at PCP's and Dr Vale's office. Neurology (Dr Vale) did evaluate the patient. There was no clear etiology identified to her hallucinations, but a dementia state is a possibility. It is unlikely that they were due to high BP's because the patient hallucinated even with normal BP's. It is unlikely that her small chronic m eningioma caused these. As far as her unsteady gait, this could be related to sequella of GBS or possible Parkinsonism. Dr Vale would like to follow up with the patient for tremors in her office - the patient is being discharged without beta blockers for tremors. She was diagnosed with prediabetes and received diabetes education. No new medications are being started on discharge. Her A1C is 6.0. The patient would benefit from a 4-wheeled walker on discharge, per PT. She is medically stable for discharge home today. She is expected to follow up with her PCP within 1 week and with Neurology in 4-6 weeks. A zio patch is being recommended on discharge to be set up by the PCP to see the patient's baseline heart rate off of beta blockers as well as to monitor for recurrence of Afib. She is asked to keep a blood pressure log and take it to her PCP. She has a blood pressure cuff at home. She should not drive until seen in Dr Vale's office due to reports of visual hallucinations. Care for patient as well as preparation of her discharge summary took 60 minutes. Home Meds and New Rx's Prescriptions: New amlodipine 10 mg Tablet 10 mg PO DAILY Qty: 30 RF: 0 Discontinued propranolol 40 mg tablet 40 mg PO BID RF: 0 Discharge Instructions Instructions: Amlodipine (By mouth), Atrial Fibrillation (DC), Chronic Hypertension (DC), Low Sodium Diet (DC), Prediabetes (DC) Additional Instructions: Return to the hospital with any fever, bleeding, chest pain, or shortness of breath. You should not drive until cleared to by Neurology due to your visual hallucinations. Take your blood pressure once a day and keep a log. Try to restrict your salt intake to 2 grams per day. Call your PCP if you are noticing systolic blood pressures in 170's. Ambulate with a walker. Stand Alone Forms: Nursing Discharge Form Referrals: Imperio,Eloian, DIRECTOR OF CORPORATE STRATEGY [NURSE PRACTITIONER] - 05/18/19 10:20 am Dorie Vale MD [ [facility] STAFF PHYSICIAN] - Activity:: Activity as Tolerated Equipment/Supplies:: four wheeled walker Diet:: Low Sodium Discharge Orders Discharge Orders: Discharge Order (Routine); Ordered 05/12/19 Ordered By: Natasha Ruiz DS: Summary Status at Discharge Functional status at discharge: uses cane/walker Overall status at discharge: patient is back to baseline Mental Status: mental status grossly normal Speech and Movement: speech and movement normal Mood: congruent mood Affect: normal affect Exam Narrative Exam Narrative: General: very pleasant elderly female, Sitting comfortably in a chair, A&Ox3 HEENT: EOMI, MMM Heart: RRR, no m/r/g Lungs: coarse breath sounds B GI: abdomen is soft, nontender, nondistended Extremities: trace edema at B ankles; wearing TEDs/SCDs. Psych Mental Status: mental status grossly normal Speech and Movement: speech and movement normal Mood: congruent mood Affect: normal affect DS: Data Vitals/I&O Vitals and I&O: Vital Signs Temperature 36.8 C 05/12/19 07:40 Temperature Source Tympanic 05/12/19 07:40 Pulse 67 05/12/19 08:57 Pulse Rhythm Regular 05/12/19 07:40 Pulse 53 L 05/10/19 03:00 Respiratory Rate 20 05/12/19 07:40 Respiratory Effort Non-Labored 05/12/19 07:40 Respiratory Depth Normal 05/12/19 07:40 Respiratory Pattern Normal 05/12/19 07:40 Blood Pressure 137/69 05/12/19 07:40 Blood Pressure Mean 84 05/10/19 00:10 Blood Pressure Position Supine 05/10/19 00:10 Pulse Oximetry 95 05/12/19 07:40 Oxygen Delivery Method Room Air 05/12/19 07:40 Oxygen Flow Rate 0 05/12/19 07:40 Pain Level 0 05/12/19 07:40 Intake & Output 05/11/19 05/12/19 05/12/19 23:59 11:59 23:59 Intake Total 62.65 / 788.05 250 / 490 240 / 490 Balance 62.65 / 788.05 250 / 490 240 / 490 Intake: IV 62.65 / 148.05 10 / 10 Oral 240 / 480 240 / 480 Other: Urine Appearance Clear Clear Comment Patient Voided in toilet Stool Size Large Stool Characteristics Formed Voiding Methods Toilet Data Completed and Pending Completed studies during hospitalization [Text1]: CT head without contrast 05/08/2019: Right-sided sinus disease. No evidence of acute infarct. US carotid 05/10/2019: Calcific plaque in the common carotid bulbs. No significant internal carotid artery stenosis. MRI brain 05/10/2019: Right-sided sinus disease. No acute abnormalities seen of the brain. Echo (transthoracic): Left Ventricle The left ventricle is grossly normal size. Mild left ventricular hypertrophy. abnormal relax with elevated filling pressures LVEF is estimated to be 70%. Right Ventricle The right ventricle is normal size. The right ventricular systolic function appears normal. Atria The left atrium size is normal. The right atrium size is normal. Aortic Valve Aortic valve is probably trileaflet. Best seen in subcostal views AV sclerosis without stenosis. No aortic regurgitation is present. Mitral Valve Mitral valve leaflets are mildly thickened. Trace to mild mitral regurgitation. Tricuspid Valve Trace tricuspid regurgitation. Pulmonic Valve Mild pulmonic regurgitation best seen subcostally. Great Vessels The aortic root is normal in size. IVC is normal in size and collapses >50% with inspiration. Bubble study results were not available, though it was done, per patient. Labs on day of discharge: Labs from last 24 hours 05/12/19 05/12/19 06:30 06:30 Sodium 141 Potassium 4.2 Chloride 104 Carbon Dioxide 27.0 Anion Gap 10.0 BUN 28 H Creatinine 0.88 Estimated GFR/1.73 m2 >= 60.00 Glucose 130 H Hemoglobin A1c 6.0 H Calcium 9.6 Magnesium 2.0 [facility] Medical History Acute infective polyneuritis (Inactive ~04/03/1966) Cerebrovascular accident (Chronic) 06/12 CT @ [facility]: SMALL LACUNAR INFARCTS. Incidental findings. 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 Impaired renal function disorder (Chronic) declines testing Intention tremor (Chronic) SECONDARY TO HYPOGLYCEMIA; NEUROLOGY W/U NEG.;on propranolol Macular degeneration (Acute) Meningioma (Acute) cerebral, left frontal, small, stable since 2007 Pneumonia (Inactive ~07/20/18) Surgical History Cholecystectomy (~1991) Fracture, Closed Treatment (04/10/14) LEFT SHOULDER FX AND DISLOCATED Status post extracapsular cataract extraction of left eye (Acute) Social History Smoking/Tobacco Use Status: Never Alcohol Intake: never Drug use: Never Substance use type: does not use Household members: none Do you feel safe at home: Yes
--- NOTE | 2019-05-12 13:43 | W.NUTCONSULT ---
Date of service: 05/12/19 Time of Service: 13:44 Nutritional Consult ASSESSMENT: Meredith has dx with prediabetes and hypertension and has class 1 obesity. Met with Meredith and daughter today and reviewed ideal diet for hypertension, prediabetes and obesity. Reviewed recent HemA1C of 6% and importance of diet compliance to avoid diabetes. Both Santo and daughter very interested and engaged in conversation. NUTRITIONAL DIAGNOSIS: obesity INTERVENTION: Intervention: Provided verbal and written material on weight management, low sodium, and carb controlled diet prior to discharge today. Provided contact information if needed outpatient nutrition counseling. Time Spent in Nutritional Counseling and Treatment: 15 min spent face to face
--- NOTE | 2019-05-12 14:36 | PT.INTREAT ---
Date of service: 05/12/19 Time of Service: 14:36 PT Notes Visit Reasons: HYPERTENSIVE EMERGENCY Inpatient Physical Therapy Treatment Note [facility] Date: 05/12/2019 PRECAUTIONS: Fall SUBJECTIVE: Meredith is agreeable to participating in PT. She is excited to be returning to home today, and agrees to use her 4WW when she feels she needs it. OBJECTIVE: PAIN: No c/o pain BED MOBILITY/TRANSFERS Sit-stand: I Stand-sit: I GAIT Assistive Device: 4WW Weight bearing: Full Assist: I Distance: 300' Deviation: Steady gait, appropriate pacing, no seated rest ASSESSMENT: Patient tolerated session well without complaint. She was able to tolerate a progression in gait distance with 4WW support with supervision, demonstrating steady gait and appropriate pacing. PLAN: As per primary PT TREATMENT CODE/TIME: 10 minutes; [id number]
[2019-05-12 15:03] VITALS: PULSE 59
[2019-05-12 15:15] VITALS: BP 153/87; PULSE 60; RESP 18; TEMP 36.6; O2SAT 95
--- NOTE | 2019-05-12 16:09 | PDOC.CMDIS ---
- If Service Date Differs Date of service: 05/12/19 Time of Service: 16:09 LACE Index Scoring Tool - Questions: Length of Stay (in days): 4 - 6 Acuity (Admit via E.D.?): Yes Comorbidities: Cerebrovascular Disease E.D. 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 She declines home health she states she plans to continue to go to her activity classes and appreciates being independent. She was also referred to [facility], [facility], and [facility]. Daughter will transport her home at time of discharge. Patient/Family Education Needs: Discharge education, limitations and follow up plan of care including ask me three and self management. Services Needed at Discharge: Home Delivered Meals
== END 2019-05-12 15:34 | disposition home or self-care (01) | DRG 305 ==
LOC: ER 18:03 → ICU 18:55 → MS 05-12 13:43 → ICU 05-18 14:19
PROVIDERS: Admitting Provider Internal Medicine; Emergency Provider Student in an Organized Health Care Education/Training Program; PCP Family Medicine; Visit Provider Internal Medicine
DX: R44.0 Auditory hallucinations; I16.0 Hypertensive urgency; I10 Essential (primary) hypertension; R39.2 Extrarenal uremia; R44.1 Visual hallucinations; R00.1 Bradycardia, unspecified; T44.7X5A Adverse effect of beta-adrenoreceptor antagonists, initial encounter; I48.0 Paroxysmal atrial fibrillation; R73.03 Prediabetes; G25.2 Other specified forms of tremor; D32.9 Benign neoplasm of meninges, unspecified; R26.81 Unsteadiness on feet; Z86.69 Personal history of other diseases of the nervous system and sense organs; N18.9 Chronic kidney disease, unspecified
CPT/HCPCS: 36415; 36416; 70553; 80048; 80053; 82962; 87449; 93005; 96365; 96366; 97110; 97162; 97530; 99222; 99223; 99232; 99233; 99239; 99285; 70450; 81003; 82607; 83036; 83735; 84439; 84443; 84484; 85025; 85610; 85730; 93010; 93306; 93880; J3420; J3490

== ENCOUNTER → 2019-05-10 07:53 | Outpatient (BNVA) | payer MEDICARE, SELFPAY ==
--- NOTE | 2019-05-14 17:15 | PT.INDS ---
Date of service: 05/14/19 Time of Service: 17:15 PT Notes Visit Reasons: INPATIENT [facility]-ACUTE CVA Inpatient Physical Therapy Discharge Summary Dates: 05/14/2019 Dates of Service: 05/09/2019 through 05/12/2019 This is a clinical summary of care provided on the duration of dates listed above. No charge was made in the completion of this documentation. Referring Doctor: Dr. Ruiz PT Orders: PT CONSULT: Limited ability to ambulate Precautions: standard Patient Profile/Admitting Diagnosis: Patient admitted 05/08/2019 for hypertensive emergency PMHX: hypertension, essential tremors, remote CVA in June 2007 without residual deficits, chronic kidney disease Social History/Home Situation: Patient lives independently in a mobile home. She has had 2 falls in the past, each resulting in significant shoulder trauma with residual deficits and ROM. Does not typically utilize an assistive device, although occasionally utilizes a cane for community ambulation. She drives independently. Has recently begun using a toggler because of limitations with upper extremity strength for housecleaning activities. She does admit to difficulty with self-care because of her restriction upper extremity range of motion, stating she has trouble washing and shaving her underarms. Equipment Owned/DME: Cane Subjective: NT Objective: General Observation: NT Mental Status: NT Pain:NT ROM: Upper Extremity: AROM limited to approximately 20 degrees of flexion bilaterally. She is unable to externally rotate to neutral. Passively she tolerates 90 degrees of shoulder flexion bilaterally. Elbow and wrist motion grossly WFL. Right Lower Extremity: WFL Left Lower Extremity: WFL Strength: Upper Extremity: Marked functional weakness of the upper extremities, as noted above Right Lower Extremity: Hip flexion 4/5. Quads 4+/5. Ankle dorsiflexion 4+/5. Left Lower Extremity: Hip flexion 4/5. Quads 4+/5. Ankle dorsiflexion 4+/5. Bed Mobility/Transfers: Sit to stand independent Stand to sit independent Bed to chair independent Chair to bed independent Sit?stand independent Stand?sit independent Gait: Patient ambulates 300 feet with FWW independently. Balance: Static Sitting: Normal Dynamic Sitting: Normal Static Standing: Fair Dynamic Standing: Fair Assessment: Patient is a 83 year old female referred to physical therapy services with the diagnosis of limited ability to ambulate. Patient presents with clinical signs and symptoms consistent with diagnosis, related to acute medical issues. Patient and her family are describing some general declines in mobility, with patient having suffered 2 significant falls. She demonstrates good safety and equipment management with use of FW W, and will benefit from transition to utilization of FW W at home for fall prevention. Patient is in agreement with this plan. She continues to demonstrate the following impairment level findings: 1. Decreased upper extremity range of motion bilaterally 2. Decreased activity tolerance 3. History of multiple falls Impairments are contributing to the following functional limitations: 1. Decreased activity tolerance 2. High fall risk Goals: Goals X1 week 1. Supine-Sit: Independent MET 2. Sit-Supine : Independent MET 3. Sit-Stand : Independent MET 4. Stand-Sit : Independent MET 5. Bed-Chair: Independent with FWW MET 6. Chair-Bed : Independent with FWW MET 7. Gait : Independent with FW W x50 feet MET DISCHARGE RECOMMENDATIONS: Home with home health PT. Patient will also require FWW at time of discharge TREATMENT CODE/TIME: NC. Thank you very much for this referral. Jeanette Sevilla PT, DPT, CLT [facility] Inpatient PT at [facility]
== END ==
PROVIDERS: PCP Family Medicine; Referring Provider Family Medicine; Visit Provider Psychiatry & Neurology Neurology
DX: R69 Illness, unspecified (principal)

== ENCOUNTER 2019-05-13 09:16 | Emergency (ER) | payer MEDICARE, SELFPAY ==
[2019-05-13] VITALS (18 sets, daily range): BP systolic 136–202; BP diastolic 60–81; PULSE 49–92; RESP 9–21; TEMP 36.5; O2SAT 89–99
--- NOTE | 2019-05-13 09:32 | ED.GENADUL_ITS ---
Discharge Plan Disposition Patient Disposition: HOME Condition: Stable Discharge Details Chief Complaint: Allergic Clinical Impression: Tongue swelling Primary Care Provider: Camila Moreland ED Provider: Ben Lockett Home Meds and New Rx's Prescriptions: New metoprolol succinate 25 mg capsule,sprinkle,ER 24hr 25 mg PO DAILY Qty: 14 RF: 0 prednisone 20 mg tablet 60 mg PO DAILY 4 Days Qty: 12 RF: 0 Discontinued amlodipine 10 mg Tablet 10 mg PO DAILY Qty: 30 RF: 0 Discharge Instructions Additional Instructions: The tongue swelling is likely from the amlodipine stop taking the amlodipine follow up as scheduled next week with your primary care provider and discuss continuing metoprolol or another blood pressure medication if you feel more ill, difficulty swallowing or breathing return to the emergency department Medical Decision Making 83 yo female who was just d/c'd from the hospital after admission for hypertensive urgency, found to have afib and was started on amolidipine and took her last dose of this last night. She woke up and noticed her tongue on the rigth side was swollen so came here. Denies fevers, chills, chest pain, sob, weakness, n/v, and no rashes. Has very localized swelling to the right side of her tongue likely from angioedema, speaking in full sentences with no stridor or difficulty swallowing. will tx with steroids and h2 blockers and monitor. labs unremarkable and she remains stable, swelling has decreased. Will have her stop her amlodipine and start her on metoprolol for her bp and she has f/u with pcp next week. Return precautions given Differential Diagnosis Differential Diagnosis: angioedema, allergic reaction Medical Records Medical records reviewed: Yes I reviewed the patient's medical records. Lab Data Lab results reviewed: Yes I reviewed the patient's lab results. ECG Data Attestation: I personally reviewed and interpreted this ECG (s) as follows: Prior ECG tracings: not available for review Interpretation: sinus rhythm, rate of 84, pr 158, no acute st twave ischemic findings HPI General Mode of arrival: ambulatory . Date/Time Provider Initiated Documentation: 05/13/19 09:20 . Limitations to Documentation: no limitations . Information obtained by: patient . History of Present Illness 83 year old F presents to the emergency department with the chief complaint of tongue swelling, described as mild, and is localized to the mouth. Patient reports no radiation. Patient started experiencing this hour(s) (2) and it has been constant. No relieving factors improve symptom(s), No exacerbating factors reported . Patient notes no other symptoms.. Patient did receive the following treatments prior to arrival, none Related Data Home Medications Medication Instructions Recorded Confirmed metoprolol succinate 25 mg PO DAILY #14 cap 05/13/19 prednisone 60 mg PO DAILY 4 Days #12 tab 05/13/19 Previous Rx's Medication Instructions Recorded metoprolol succinate 25 mg PO DAILY #14 cap 05/13/19 prednisone 60 mg PO DAILY 4 Days #12 tab 05/13/19 Allergies Allergy/AdvReac Type Severity Reaction Status Date / Time Sulfa (Sulfonamide Allergy Unknown Unverified 05/13/19 09:25 Antibiotics) General Stated Complaint: Allergic JENNIFER: 2 Review of Systems All systems reviewed & are unremarkable except as noted in HPI and below Constitutional Constitutional: Denies chills, Denies fever(s) and Denies weakness ENT Ears, Nose, Mouth, and Throat: Denies change in voice Cardiovascular Cardiovascular: Denies chest pain and Denies dyspnea Respiratory Respiratory: Denies cough and Denies dyspnea Gastrointestinal Gastrointestinal: Denies abdominal pain, Denies nausea and Denies vomiting Musculoskeletal Musculoskeletal: Denies joint swelling Neurologic Neurologic: Denies weakness [facility] Social History Smoking/Tobacco Use Status: Never Alcohol Intake: never Drug use: Never Substance use type: does not use Household members: none Do you feel safe at home: Yes Do you feel safe in your relationship?: Yes Exam Const General: no acute distress Orientation: alert HENDC Head: normal to inspection Ears: external ears normal General nose exam: external nose normal Mouth: moist mucous membranes Eyes General: appearance normal, both eyes and all related structures Neck Neck: normal visual inspection Resp Effort & Inspection: normal respiratory effort and able to speak in complete sentences Cardio Rate: regular rate Skin General skin exam: no rashes or lesions noted Neuro General: alert and oriented x3 Extrem General: normal to inspection Psych Mental Status: mental status grossly normal Course Vital Signs Vital signs: Vital Signs Temperature 36.5 C 05/13/19 09:23 Pulse 88 05/13/19 09:23 Respiratory Rate 21 05/13/19 09:23 Blood Pressure 202/62 H 05/13/19 09:23 Pulse Oximetry 94 L 05/13/19 09:23 Temperature 36.5 C 05/13/19 09:23 Temperature Source Temporal Artery Scan 05/13/19 09:23 Pulse 88 05/13/19 09:23 Respiratory Rate 21 05/13/19 09:23 Respiratory Effort Non-Labored 05/13/19 09:25 Respiratory Pattern Normal 05/13/19 09:25 Blood Pressure 202/62 H 05/13/19 09:23 Blood Pressure Position Sitting 05/13/19 09:23 Pulse Oximetry 94 L 05/13/19 09:23 Oxygen Delivery Method Room Air 05/13/19 09:23 Oxygen Flow Rate 0 05/13/19 09:23 Pain Level 0 05/13/19 09:23
[2019-05-13 10:09] LABS: ALT 19 U/L (14-59); AST 32 U/L (15-37); Albumin 3.8 g/dL (3.4-5.0); Alkaline Phosphatase 141 U/L (46-116); Anion Gap 12.8 mmol/L (3-11); BUN 28 mg/dL (7-18); Bilirubin, Total 0.6 mg/dL (0.2-1.0); CO2 25.2 mmol/L (21.0-32.0); CREATININE 0.82 mg/dL (0.55-1.02); Calcium 9.8 mg/dL (8.5-10.1); Chloride 102 mmol/L (98-107); Glucose 163 mg/dL (74-106); Potassium 4.6 mmol/L (3.5-5.1); Sodium 140 mmol/L (136-145); Total Protein 8.3 g/dL (6.4-8.2)
[2019-05-13] MEDS: FAMOTIDINE 20 MG/50 ML BAG 200 MG IVPB (10:15)
[2019-05-13] MEDS: methylPREDNISolone SUCC 125 MG VIAL IVP (10:15)
[2019-05-13] MEDS: Normal Saline Flush 10 ML SYR IVP (10:16)
[2019-05-13 10:18] LABS: Abs Immature Grans 0.03 k/cumm (0.0-0.09); Absolute Basophil Count 0.03 k/cumm (0.0-0.2); Absolute Eosinophil Count 0.17 k/cumm (0.0-0.7); Absolute Lymphocyte Count 1.44 k/cumm (1.2-3.4); Absolute Monocyte Count 0.53 k/cumm (0.11-0.7); Absolute Neutrophil Count 5.57 k/cumm (1.2-6.7); Basophils % 0.4; Eosinophils % 2.2; HCT 45.7 % (36.0-46.0); HGB 14.6 g/dL (12.0-15.5); Immature Grans % 0.4 %; Lymphocytes % 18.5; Mean Corp. HGB Concentration 31.9 g/dL (32.0-36.0); Mean Corpuscular Hemoglobin 28.6 pg (27.0-33.0); Mean Corpuscular Volume 89.6 fL (80-95); Monocytes % 6.8; Neutrophils % 71.7; Platelet Count 178 x1000/uL (130-400); RBC Distribution Width 14.9 % (11.7-14.6); White Blood Cell Count 7.77 k/cumm (4.4-10.8)
== END 2019-05-13 11:13 | disposition home or self-care (01) ==
PROVIDERS: Emergency Provider Emergency Medicine; PCP Family Medicine
DX: R22.0 Localized swelling, mass and lump, head (principal); I48.91 Unspecified atrial fibrillation
CPT/HCPCS: 80053; 93005; 96374; 96375; 99284; 85025; 93010; J2930

== ENCOUNTER 2019-06-28 19:55 | Emergency (ER) | payer MEDICARE, SELFPAY ==
[2019-06-28 19:55] VITALS: PULSE 129; RESP 20; TEMP 36.6; O2SAT 97
[2019-06-28 19:59] VITALS: RESP 12
--- NOTE | 2019-06-28 20:10 | ED.GENADUL_ITS ---
Discharge Plan Disposition Patient Disposition: HOME Condition: Improving Discharge Details Chief Complaint: GenMedical Clinical Impression: Hypertension, Paresthesia of both legs Primary Care Provider: Eloina Brewer ED Provider: Ana Child Home Meds and New Rx's Prescriptions: Continued chlorthalidone 25 mg tablet 25 mg PO DAILY Qty: 90 RF: 3 metoprolol succinate 25 mg capsule,sprinkle,ER 24hr 25 mg PO DAILY Qty: 90 RF: 3 lisinopril 10 mg tablet 10 mg PO DAILY Qty: 30 RF: 0 Discharge Instructions Instructions: Paresthesia (ED), Hypertension (ED) Additional Instructions: Take your regular medications as directed. You can take the Ativan every 6 hours or at nighttime to help with anxiety or sleep. Call your primary care doctor's office tomorrow to schedule a follow-up appointment for reevaluation this week if your symptoms do not improve or worsen. Otherwise follow-up with your scheduled appointment on July 06. Drink plenty of fluids and get plenty of rest. Return to the emergency department if you develop any worsening or new concerning symptoms. Discharge Data Discharge Date/Time-TO BE ENTERED AT DEPARTURE: 06/29/19 00:00 Discharge Physician: Ana Child Medical Decision Making 2199 -- 83-year-old female with a history of hypertension, atrial fibrillation presents for high blood pressure at home this evening. States initial systolic BP 111, then 160, then 200. Patient does admit to a mild frontal headache and intermittent paresthesias in her legs since this afternoon. She states she has had these intermittent paresthesias from her thighs down in both legs since her admission here last month for hypertensive emergency. Patient was found to develop atrial fibrillation during this admission and started on metoprolol. She has been taking chlorthalidone, lisinopril and metoprolol since this recent admission. She states she did not yet take her doses of these medications today. She denies chest pain, shortness of breath. She does admit to mild frontal headache. Patient appears mildly anxious. BP 190/79. Heart rate ranged between 90s and 120s, and atrial fibrillation. EKG notes a rate of 116, A. fib with [address] depression noted in V3 through V6. There is no acute ST elevation. No focal deficits on exam. Doubt CVA or ACS as patient has no focal deficits complaint of chest pain. Will check Stat CT head, cxr and screening labs and gi ve pt a dose of her daily meds. 2330 -- Labs and imaging reviewed. Potassium 3.2. Anion gap 15. Creatinine 1.17. Troponin negative. CT head and chest x-ray negative for acute findings. Patient's blood pressure and heart rate are significantly improved. Heart rate 70s. BP 119/54. EKG noted a rate of 74, sinus with no acute ST elevation or depression. She is able to ambulate and denies any acute complaints. Patient is appropriate for discharge to home. Do not see any acute indication for admission. She had some hesitation if high blood pressure would return. Discussed that as she had not yet taken her blood pressure medication today, this is likely the cause. She does seem to have some element of anxiety. She was given a few tabs of Ativan for home. Her son-in-law is here and is staying with her at home tonight. He states that she can stay with them over the next 2 days if needed. She has an appointment with her primary care doctor on July 06. Discussed that some of her symptoms of fatigue and dizziness could be attributed to low blood pressure at times due to her meds or dehydration. She is advised to drink plenty of fluids and discuss with her primary care doctor if any of her dosing needs to be adjusted. Medical Records Medical records reviewed: Yes I reviewed the patient's medical records. Imaging Data Radiologic Study: Radiologist's impression: CT Head Without Contrast Exam date and time: 06/28/2019 8:49 PM Age: 83 years old Clinical indication: Pain; Headache not specified; Patient HX: Headache, leg paresthesias, R/O acute process TECHNIQUE: Imaging protocol: Computed tomography of the head without contrast. Radiation optimization: All CT scans at this facility use at least one of these dose optimization techniques: automated exposure control; mA and/or kV adjustment per patient size (includes targeted exams where dose is matched to clinical indication); or iterative reconstruction. COMPARISON: CT HEAD - STROKE PROTOCOL 05/08/2019 4:29 PM FINDINGS: Brain: No intracranial hemorrhage. No large territory acute CVA. Age-related mild cerebral atrophy and chronic small vessel deep white matter ischemia. Ventricles: Normal. No ventriculomegaly. Bones/joints: No skull fracture. Sinuses: Complete opacification of the right maxillary sinus. Anterior ethmoid air cell disease and frontal sinus opacification. Minimal mucoperiosteal thickening of the left maxillary sinus. The sinuses are similar in appearance to 05/08/2019. Mastoid air cells: Visualized mastoid air cells are well aerated. Soft tissues: Unremarkable. Vasculature: Distal vertebral artery and cavernous carotid artery atherosclerotic calcium. IMPRESSION: 1. Chronic sinus disease. 2. No intracranial hemorrhage. 3. No large territory acute CVA. XR Chest, 2 Views Exam date and time: 06/28/2019 9:02 PM Age: 83 years old Clinical indication: Other: High BP; Additional info: High BP, R/O acute disease TECHNIQUE: Imaging protocol: XR of the chest Views: 2 views. COMPARISON: No relevant prior studies available. FINDINGS: Lungs: Chronic appearing interstitial lung disease bilaterally. No acute consolidation. No edema. Pleural space: No pleural effusions. No pneumothorax. Heart/Mediastinum: Normal heart size. No mediastinal widening. Bones/joints: Degenerative thoracic spine disease. Old left humeral neck fracture. IMPRESSION: 1. Chronic interstitial lung disease. 2. No infiltrates or edema. 3. No acute pleural disease. 4. Normal heart and mediastinal silhouette. Lab Data Lab results reviewed: Yes I reviewed the patient's lab results. Labs: Laboratory Tests Range/Units 06/28/19 06/28/19 20:30 20:30 WBC (4.4-10.8) k/cumm 8.14 RBC (4.00-5.20) m/cumm 5.30 H Hgb (12.0-15.5) g/dL 15.4 Hct (36.0-46.0) % 46.3 H MCV (80-95) fL 87.4 MCH (27.0-33.0) pg 29.1 MCHC (32.0-36.0) g/dL 33.3 RDW (11.7-14.6) % 14.6 Plt Count (130-400) x1000/uL 169 MPV (8.0-11.0) fL 11.4 H Immature Gran % % 0.2 Neutrophils % 71.0 Lymphocytes % 20.5 Monocytes % 6.9 Eosinophils % 1.0 Basophils % 0.4 Absolute Neutrophils (1.2-6.7) k/cumm 5.78 Absolute Lymphocytes (1.2-3.4) k/cumm 1.67 Absolute Monocytes (0.11-0.7) k/cumm 0.56 Absolute Eosinophils (0.0-0.7) k/cumm 0.08 Absolute Basophils (0.0-0.2) k/cumm 0.03 Sodium (136-145) mmol/L 139 Potassium (3.5-5.1) mmol/L 3.2 L Chloride (98-107) mmol/L 101 Carbon Dioxide (21.0-32.0) mmol/L 22.3 Anion Gap (3-11) mmol/L 15.7 H BUN (7-18) mg/dL 46 H Creatinine (0.55-1.02) mg/dL 1.17 H Estimated GFR/1.73 m2 (mL/min/1.73m2) 44.28 Glucose (74-106) mg/dL 173 H Calcium (8.5-10.1) mg/dL 9.7 Magnesium (1.8-2.4) mg/dL 2.0 Total Bilirubin (0.2-1.0) mg/dL 0.3 AST (15-37) U/L 17 ALT (14-59) U/L 15 Alkaline Phosphatase (46-116) U/L 135 H Troponin I (<0.06) ng/Ml < 0.05 Total Protein (6.4-8.2) g/dL 7.8 Albumin (3.4-5.0) g/dL 3.8 ECG Data Attestation: I personally reviewed and interpreted this ECG (s) as follows: Interpretation: Rate of 116, A. fib, [address] depression V2 through V6. No acute ST elevation. QTc 464. QRS 104. #2 --Rate of 74, sinus, no acute ST elevation or depression. SD 170. QTc 459. QRS 104. HPI General Mode of arrival: EMS . Date/Time Provider Initiated Documentation: 06/28/19 20:10 . Limitations to Documentation: no limitations . Information obtained by: patient . History of Present Illness 83 year old F presents to the emergency department with the chief complaint of high bp, intermittent paresthesias in leg, headache, and is localized to the head. Patient reports no radiation. Patient started experiencing this hour(s) (this afternoon) and it has been intermittent. No relieving factors improve symptom(s), No exacerbating factors reported . Patient notes headaches (mild); denies chest pain, cough, diaphoresis, fever/chills, loss of appetite, malaise, nausea/vomiting, rash, seizure, shortness of breath, syncope and weakness. Patient did receive the following treatments prior to arrival, none Related Data Home Medications Medication Instructions Recorded Confirmed chlorthalidone 25 mg tablet 25 mg PO DAILY #90 tab 05/25/19 06/28/19 metoprolol succinate 25 mg capsule 25 mg PO DAILY #90 cap 05/25/19 06/28/19 sprinkle, ext. release 24 hr lisinopril 10 mg tablet 10 mg PO DAILY #30 tab 06/07/19 06/28/19 Previous Rx's Medication Instructions Recorded chlorthalidone 25 mg tablet 25 mg PO DAILY #90 tab 05/25/19 metoprolol succinate 25 mg capsule 25 mg PO DAILY #90 cap 05/25/19 sprinkle, ext. release 24 hr lisinopril 10 mg tablet 10 mg PO DAILY #30 tab 06/07/19 Allergies Allergy/AdvReac Type Severity Reaction Status Date / Time amlodipine Allergy Severe Tongue Verified 05/18/19 10:08 swelling Sulfa (Sulfonamide Allergy Unknown Unverified 05/18/19 10:08 Antibiotics) General Stated Complaint: GenMedical JENNIFER: 3 Review of Systems All systems reviewed & are unremarkable except as noted in HPI and below Constitutional Constitutional: Reports as per HPI, Denies chills, Denies fever(s) and Reports headache(s) (mild, frontal) Eyes Eyes: Denies blurry vision ENT Ears, Nose, Mouth, and Throat: Denies dizziness, Reports headache(s) (mild, frontal), Denies sore throat and Denies throat swelling Cardiovascular Cardiovascular: Denies chest pain and Denies dyspnea Respiratory Respiratory: Denies cough and Denies dyspnea Gastrointestinal Gastrointestinal: Denies abdominal pain, Denies diarrhea and Denies vomiting Genitourinary Genitourinary: Denies hematuria and Denies dysuria Musculoskeletal Musculoskeletal: Denies back pain and Denies numbness Integumentary/Breasts Skin/Breast: Denies lesions and Denies rash Neurologic Neurologic: Denies dizziness, Reports headache(s) (mild, frontal), Denies focal weakness, Denies numbness and Reports paresthesias Allergic/Immunologic Allergic/Immunologic: Denies throat swelling [facility] Social History Smoking/Tobacco Use Status: Never Alcohol Intake: never Drug use: Never Substance use type: does not use Household members: none Do you feel safe at home: Yes Do you feel safe in your relationship?: Yes Exam Const General: cooperative, no acute distress and anxious (mild) Orientation: alert, awake and oriented x3 HENMT Head: normal to inspection Ears: hearing grossly normal bilaterally, external ears normal and TM's normal bilaterally General nose exam: external nose normal Face and sinus: normal facial exam Mouth: oral mucosae normal Teeth and gingiva: dentition normal Throat: posterior oropharynx normal Eyes General: appearance normal, both eyes and all related structures Eyelids: eyelids normal Pupils: PERRL EOM: EOM intact bilaterally Neck Neck: normal visual inspection Lymphatic: no lymphadenopathy noted Chest Chest: normal inspection of the chest Resp Effort & Inspection: normal respiratory effort and able to speak in complete sentences Auscultation: clear to auscultation bilaterally Cardio Rate: tachycardic Rhythm: abnormal rhythm irregularly irregular GI Inspection: normal to inspection Palpation: soft, not firm, no guarding, no hepatosplenomegaly, no masses and nontender Auscultation: normal bowel sounds Skin General skin exam: no rashes or lesions noted Neuro General: alert, awake and oriented x3 Cranial Nerves: CN's II-XI intact bilaterally Cognition: normal cognition Speech: speech normal Sensory Exam: no sensory deficits noted Extrem General: normal to inspection, full ROM and normal capillary refill Psych Appearance: grossly normal Mental Status: mental status grossly normal Speech and Movement: speech and movement normal Affect: normal affect Thought Process: normal Course Vital Signs Vital signs: Vital Signs Temperature 97.9 F 06/28/19 19:55 Pulse 129 H 06/28/19 19:55 Respiratory Rate 20 06/28/19 19:55 Pulse Oximetry 97 06/28/19 19:55 Temperature 97.9 F 06/28/19 19:55 Temperature Source Skin 06/28/19 19:55 Pulse 129 H 06/28/19 19:55 Respiratory Rate 12 06/28/19 19:59 Respiratory Effort 06/28/19 19:59 Respiratory Depth Normal 06/28/19 19:59 Respiratory Pattern Normal 06/28/19 19:59 Pulse Oximetry 97 06/28/19 19:55 Oxygen Delivery Method Room Air 06/28/19 19:55 Oxygen Flow Rate 0 06/28/19 19:55 Pain Level 5 06/28/19 19:55
[2019-06-28 20:36] LABS: Abs Immature Grans 0.02 k/cumm (0.0-0.09); Absolute Basophil Count 0.03 k/cumm (0.0-0.2); Absolute Eosinophil Count 0.08 k/cumm (0.0-0.7); Absolute Lymphocyte Count 1.67 k/cumm (1.2-3.4); Absolute Monocyte Count 0.56 k/cumm (0.11-0.7); Absolute Neutrophil Count 5.78 k/cumm (1.2-6.7); Basophils % 0.4; HCT 46.3 % (36.0-46.0); HGB 15.4 g/dL (12.0-15.5); Immature Grans % 0.2 %; Lymphocytes % 20.5; Mean Corp. HGB Concentration 33.3 g/dL (32.0-36.0); Mean Corpuscular Hemoglobin 29.1 pg (27.0-33.0); Mean Corpuscular Volume 87.4 fL (80-95); Mean Platelet Volume 11.4 fL (8.0-11.0); Monocytes % 6.9; Platelet Count 169 x1000/uL (130-400); RBC Distribution Width 14.6 % (11.7-14.6); White Blood Cell Count 8.14 k/cumm (4.4-10.8)
--- NOTE | 2019-06-28 20:40 | NUR.NOTE ---
LUZ Lloyd from home with c/o elevated BP. Pt reports new meds recently. took BP x 3 today at home with varied readings. Called 911 tonight for DBP >100. Pt takes BP meds at 1900 daily, has not taken todays doses. Denies CP, SOB. Reports ART and numb feeling to legs, similar to in past. Afib on monitor. Speech clear, +/= strength to all extremities. Arrives with #20 RH. LSCTA. Pt took own home meds per MD Child, lisinopril, metoprolol, chlorthalidone.
--- NOTE | 2019-06-28 20:45 | DI.RAD_ITS ---
EXAM: XR CHEST 2V PA LATERAL CLINICAL HISTORY: high bp, r/o acute disease TECHNIQUE: COMPARISON: RIGHT RIBS TO INCLUDE CXR from 04/17/2014 XR CHEST 2V PA LATERAL from 07/14/2018 FINDINGS: The heart is not enlarged. There appear to be mild diffuse changes of pulmonary scarring. No pleura l effusion. No focal consolidation. Right sided infiltrates noted on chest film July 2018 appear t o have resolved. IMPRESSION: No evidence of acute process.
--- NOTE | 2019-06-28 20:45 | DI.CT_ITS ---
EXAM: CT HEAD WO CLINICAL HISTORY: headache, leg paresthesias, r/o acute process TECHNIQUE: The exam was performed according to the usual protocol. COMPARISON: CT HEAD - STROKE PROTOCOL from 05/08/2019 FINDINGS: Noncontrast cranial CT was performed. There is moderate generalized cerebral atrophy consistent with the patient's age and there are subtle patchy areas of decreased attenuation in sub cortical insula bilaterally. Question minimal bilateral lacunar infarcts. No evidence of acute intracranial hemorrh age, mass effect, or midline shift. There is predominant opacification of right frontal and right maxillary sinuses with some mucoperiost eal thickening in ethmoid sinuses particularly on the right. Findings consistent with chronic and/or acute sinusitis. No gross interval change appearance comparison with prior CT of May 08. The orbital and temporal bone structures appear intact. Mastoid air cells appear clear. IMPRESSION: No evidence of acute intracranial process. Chronic right maxillary and frontal sinusitis with comple te opacification of these sinus cavities. Question mild expansion right maxillary antrum.
[2019-06-28 20:51] LABS: ALT 15 U/L (14-59); AST 17 U/L (15-37); Albumin 3.8 g/dL (3.4-5.0); Alkaline Phosphatase 135 U/L (46-116); Anion Gap 15.7 mmol/L (3-11); BUN 46 mg/dL (7-18); Bilirubin, Total 0.3 mg/dL (0.2-1.0); CO2 22.3 mmol/L (21.0-32.0); CREATININE 1.17 mg/dL (0.55-1.02); Calcium 9.7 mg/dL (8.5-10.1); Chloride 101 mmol/L (98-107); Estimated GFR 44.28 (mL/min/1.73m2); Glucose 173 mg/dL (74-106); Potassium 3.2 mmol/L (3.5-5.1); Sodium 139 mmol/L (136-145); Total Protein 7.8 g/dL (6.4-8.2); Troponin I < 0.05 ng/Ml (<0.06)
--- NOTE | 2019-06-28 21:23 | DI.VRAD_ITS ---
PROCEDURE INFORMATION: Exam: CT Head Without Contrast Exam date and time: 06/28/2019 8:49 PM Age: 83 years old Clinical indication: Pain; Headache not specified; Patient HX: Headache, leg paresthesias, R/O acute process TECHNIQUE: Imaging protocol: Computed tomography of the head without contrast. Radiation optimization: All CT scans at this facility use at least one of these dose optimization techniques: automated exposure control; mA and/or kV adjustment per patient size (includes targeted exams where dose is matched to clinical indication); or iterative reconstruction. COMPARISON: CT HEAD - STROKE PROTOCOL 05/08/2019 4:29 PM FINDINGS: Brain: No intracranial hemorrhage. No large territory acute CVA. Age-related mild cerebral atrophy and chronic small vessel deep white matter ischemia. Ventricles: Normal. No ventriculomegaly. Bones/joints: No skull fracture. Sinuses: Complete opacification of the right maxillary sinus. Anterior ethmoid air cell disease and frontal sinus opacification. Minimal mucoperiosteal thickening of the left maxillary sinus. The sinuses are similar in appearance to 05/08/2019. Mastoid air cells: Visualized mastoid air cells are well aerated. Soft tissues: Unremarkable. Vasculature: Distal vertebral artery and cavernous carotid artery atherosclerotic calcium. IMPRESSION: 1. Chronic sinus disease. 2. No intracranial hemorrhage. 3. No large territory acute CVA. Dictated and Authenticated by: Kushal Parisi MD. Ordering:SHANNAN Perez MD
--- NOTE | 2019-06-28 21:24 | DI.VRAD_ITS ---
PROCEDURE INFORMATION: Exam: XR Chest, 2 Views Exam date and time: 06/28/2019 9:02 PM Age: 83 years old Clinical indication: Other: High BP; Additional info: High BP, R/O acute disease TECHNIQUE: Imaging protocol: XR of the chest Views: 2 views. COMPARISON: No relevant prior studies available. FINDINGS: Lungs: Chronic appearing interstitial lung disease bilaterally. No acute consolidation. No edema. Pleural space: No pleural effusions. No pneumothorax. Heart/Mediastinum: Normal heart size. No mediastinal widening. Bones/joints: Degenerative thoracic spine disease. Old left humeral neck fracture. IMPRESSION: 1. Chronic interstitial lung disease. 2. No infiltrates or edema. 3. No acute pleural disease. 4. Normal heart and mediastinal silhouette. Dictated and Authenticated by: Kushal Parisi MD. Ordering:SHANNAN Perez MD
[2019-06-28 22:00] VITALS: BP 158/106; PULSE 102; RESP 16; O2SAT 97
[2019-06-28 22:25] VITALS: BP 120/90; PULSE 105; RESP 16; O2SAT 97
[2019-06-28] MEDS: Normal Saline 500 ML IV (22:39)
[2019-06-28 23:02] VITALS: BP 119/54; PULSE 72; RESP 16; O2SAT 98
--- NOTE | 2019-06-28 23:22 | NUR.NOTE ---
ambulated in [place] with steady gait.
[2019-06-29] MEDS: LORazepam 0.5 MG TAB 2 MG PO (00:02)
== END 2019-06-29 | disposition home or self-care (01) ==
PROVIDERS: Emergency Provider Physician Assistant; PCP Nurse Practitioner
DX: H53.8 Other visual disturbances (principal); I10 Essential (primary) hypertension; R20.2 Paresthesia of skin; R51 Headache; I48.91 Unspecified atrial fibrillation
CPT/HCPCS: 36415; 80053; 93005; 96360; 99285; 70450; 71046; 83735; 84484; 85025; 93010

== ENCOUNTER 2019-07-07 03:18 | Outpatient (CLI) | payer MEDICARE, SELFPAY ==
--- NOTE | 2019-07-20 13:14 | ZIOP_ITS ---
Date of service: 07/20/19 Time of Service: 13:14 ZIO Patch Utilization Review Specialist Note: This is a 8-day ZIO patch ordered for the indication of atrial fibrillation. ?The patient was in normal sinus rhythm for the majority of the recording. ?There were 2 episodes of supraventricular tachycardia with the longest lasting 4 beats. ?There were rare isolated premature atrial contractions. ?There were no episodes of ventricular tachycardia and rare isolated premature ventricular contractions. ?There were no pauses greater than 3 seconds, no evidence of high degree heart block and no episodes of atrial fibrillation. ?There were no patient triggered events.
== END 2019-07-07 03:38 ==
PROVIDERS: PCP Nurse Practitioner; Visit Provider Nurse Practitioner
DX: R41.3 Other amnesia (principal); G25.0 Essential tremor; I48.0 Paroxysmal atrial fibrillation; F41.9 Anxiety disorder, unspecified
CPT/HCPCS: 0296T; 99354

== ENCOUNTER 2019-07-20 13:14 | Outpatient (CLI) | payer MEDICARE, SELFPAY | END 2019-07-20 13:34 | PROVIDERS: PCP Nurse Practitioner; Referring Provider Nurse Practitioner; Visit Provider Internal Medicine Cardiovascular Disease | DX: I48.0 Paroxysmal atrial fibrillation (principal) | CPT/HCPCS: 0298T ==

== ENCOUNTER 2019-12-17 11:03 | Outpatient (CLI) | payer MEDICARE, SELFPAY ==
[2019-12-17 13:01] LABS: Potassium 5.4 mmol/L (3.5-5.1)
== END 2019-12-17 11:23 ==
PROVIDERS: PCP Nurse Practitioner; Visit Provider Nurse Practitioner
DX: I10 Essential (primary) hypertension (principal)
CPT/HCPCS: 36415; 84132

== ENCOUNTER 2019-12-21 03:51 | Outpatient (CLI) | payer MEDICARE, SELFPAY ==
[2019-12-21 12:34] LABS: Potassium 4.6 mmol/L (3.5-5.1)
== END 2019-12-21 04:11 ==
PROVIDERS: PCP Nurse Practitioner; Visit Provider Nurse Practitioner
DX: I10 Essential (primary) hypertension (principal)
CPT/HCPCS: 36415; 84132

== ENCOUNTER 2020-01-07 10:46 | Day surgery (SDC) | payer MEDICARE, SELFPAY ==
[2020-01-07 10:49] VITALS: BP 161/46; PULSE 61; RESP 16; TEMP 36; O2SAT 96
--- NOTE | 2020-01-07 11:49 | W.PM.DSUDISC ---
Discharge Plan Disposition Patient Disposition: HOME Condition: Good Discharge Details Attending Provider: Reginald Arellano Primary Care Provider: Eloina Brewer Home Meds and New Rx's Prescriptions: No Action metoprolol succinate 25 mg capsule,sprinkle,ER 24hr 25 mg PO DAILY Qty: 90 RF: 3 lorazepam 0.5 mg tablet 0.5 mg PO BID PRN (Reason: anxiety) Qty: 30 RF: 0 chlorthalidone 25 mg tablet 25 mg PO HS RF: 0 lisinopril 10 mg tablet 10 mg PO HS RF: 0 Discharge Instructions Stand Alone Forms: Post-op Topical Cataract, Chris Car (DSU) DS: Diagnosis Discharge Diagnosis (1) Posterior subcapsular age-related cataract, right eye: Status: Resolved (2) Nuclear sclerotic cataract of right eye: Status: Resolved (3) Cortical cataract of right eye: Status: Resolved
[2020-01-07] MEDS: Tetracaine 0.5% 4 ML BTL OD (11:58)
[2020-01-07] MEDS: Balanced Salt Soln.-PLUS 500 ML BAG (11:59)
[2020-01-07] MEDS: Lidocaine 2% Jelly 6 ML SYR (12:00)
[2020-01-07] MEDS: Lidocaine 1% Pres-Free 5 ML VIAL (12:00)
[2020-01-07] MEDS: Moxifloxacin-PF 1 MG/ML VIAL (12:00)
[2020-01-07] MEDS: Povidone-Iodine Ophth 30 ML BTL (12:01)
[2020-01-07] MEDS: Trypan Blue 0.06% 0.5 ML SYR (12:02)
--- NOTE | 2020-01-07 12:38 | ROE_ITS ---
Date of service: 01/07/20 Time of Service: 12:38 Operative Note Operative Note DATE OF PROCEDURE: 01/07/20 PRE-OP DIAGNOSIS: Nuclear/cortical/posterior subcapsular cataract, right eye POST-OP DIAGNOSIS: same PROCEDURE: Cataract extraction using phacoemulsification with intraocular lens implantation, right eye, using capsular staining with Vision Blue SURGEON: Reginald Arellano ANESTHESIA: MAC (with local sub-tenon's anesthetic injection) PATHOLOGY: none sent COMPLICATIONS: None Patient was transported to: same day Patient's condition: stable Implants: [employer] / [employer] Tecnis [id number] Indications: Progressive visual loss due to cataract, right eye Procedure Description: CATARACT SURGERY OPERATIVE REPORT PREOPERATIVE DIAGNOSIS: 1. Nuclear/cortical/posterior subcapsular cataract, left eye, gland 2. Poor red reflex secondary to #1 POSTOPERATIVE DIAGNOSIS: Same OPERATION: 1. Cataract extraction using phacoemulsification with posterior chamber intraocular lens implant, right eye. 2. Capsular staining with Vision Blue IOL: IOL Mixed [employer] Worker/Model: Telly & Telly / ANTONI Tecnis [id number] IOL Power: + 21.0 diopters IOL Serial Number: [id number] Optic Diameter: 6.0mm Haptic/Overall Diameter: 13.0mm PHACO INFO: Nicola Centurion Vision System with OZil and Active Fluidics Cumulative Dispersed Energy (CDE): 20.57 seconds SURGEON: Reginald Arellano MD, CONNOR ANESTHESIA: Monitored Anesthesia Care (MAC), with local sub-tenon's anesthetic infiltration COMPLICATIONS: None SPECIMENS: None INDICATIONS FOR PROCEDURE: Patient is an 84-year-old lady history of diminished visual acuity in her right eye secondary to development of dense nuclear/posterior subcapsular cataract in the right eye she has previously undergone cataract surgery in the left eye in 2000. Cataract right eye. PROCEDURE: The correct surgical eye was identified and marked as the right eye and the pupil was dilated in the preoperative area using mydriatics and cycloplegics. The dilated pupil size was 5.0 mm. Oral sedation was administered in the form of an Imprimis MKO Melt (midazolam 3mg/ketamine 25mg/ondansetron 2mg). The patient was brought to the operating room where cardiopulmonary monitoring was instituted and surgical time-out was performed, confirming the correct operative eye and IOL power. Topical anesthesia was administered and ophthalmic povidone-iodine 5% was instilled into the conjunctival fornices. Lidocaine gel was applied to the cornea and the milton-ocular area was prepped with Betadine 10% solution and draped in the usual sterile fashion for intraocular surgery, including an aperture drape. A Tegaderm transparent film dressing was cut in half and used to cover the lashes and lid margins. Care was taken to sequester the lashes and lid margins under the Tegaderm dressing. A lid speculum was placed between the lids of the operative eye and the Erlin-Karolina operating microscope was maneuvered into position. Miriam scissors were then used to make a conjunctival buttonhole approximately 6mm posterior to the limbus in the inferonasal quadrant. Blunt dissection was carried out to expose bare sclera, and a blunt-tipped sub-tenon?s anesthesia cannula was introduced and passed posteriorly along the globe where non- preserved plain lidocaine was injected into posterior sub-Tenon?s space. A sideport knife was used to make a paracentesis port inferotemporally. Intraocular phenylephrine/lidocaine was injected into the anterior chamber. Air was injected into the anterior chamber, followed by Vision Blue, which was painted over the anterior capsule and then irrigated out with BSS. The anterior chamber was filled with Healon Pro. A 2.4mm keratome knife was used to create a half-thickness groove at the limbus and then to construct a three-plane near- clear corneal tunnel extending 2.0mm into clear cornea superiortemporally. A flap was raised on the anterior capsule and capsulorhexis forceps were used to complete a continuous curvilinear capsulorhexis of 5.0 mm. Moderate to severe diffuse zonular laxity noted with anterior capsule. Balanced salt solution was then used to perform cortical cleaving hydrodissection and nuclear hydrodelineation until the lens could be freely rotated within the capsular bag. The lens nucleus was then disassembled and removed within the capsular bag and iris plane using phacoemulsification. Residual cortical material was removed using the I/A handpiece. The posterior capsule was carefully polished to remove as much residual lens epithelial cells as safely possible. The capsular bag was then inflated and the anterior chamber deepened with viscoelastic. The lens implant described above was inserted into the capsular bag using the ANTONI [place] Injector. A Kuglen hook was used to dial the IOL into position. Residual viscoelastic was then removed first from posterior to the IOL, then from the anterior chamber using the I/A handpiece. The lens implant was noted to center nicely within the capsular bag. The incisions were stromally hydrated, and the anterior chamber was reformed using BSS. Then 0.5cc of moxifloxacin 1.0mg/ml were injected into the capsular bag and anterior chamber. The incisions were checked with a Weck spear and found to be secure. Several drops of ophthalmic povidone-iodine 5% were then applied to the eye followed by two drops of Imprimis combination prednisolone/moxifloxacin/nepafenac solution. The drapes were removed and a clear plastic protective eye shield was placed over the eye. The patient was then returned to Same Day Surgery in stable condition.
[2020-01-07 13:00] VITALS: BP 113/50; PULSE 52; RESP 16; TEMP 36.1; O2SAT 96
== END 2020-01-07 13:05 | disposition home or self-care (01) ==
PROVIDERS: PCP Nurse Practitioner; Visit Provider Ophthalmology
PROC: (CPT 66982; principal; 2020-01-07 14:30)
DX: H25.041 Posterior subcapsular polar age-related cataract, right eye (principal); H25.11 Age-related nuclear cataract, right eye; H25.011 Cortical age-related cataract, right eye; H35.89 Other specified retinal disorders; Z96.1 Presence of intraocular lens; Z98.42 Cataract extraction status, left eye
CPT/HCPCS: 66982; V2632

== ENCOUNTER 2020-01-19 22:18 | Outpatient (REF) | payer MEDICARE, SELFPAY ==
[2020-01-19 22:13] LABS: Bilirubin Negative (Negative); Blood Negative (Negative); Clarity Cloudy (Clear); Glucose Negative (Negative); Ketones Negative (Negative); Leukocyte Esterase Trace (Negative); Nitrite Negative (Negative); Specific Gravity >= 1.030 (1.005-1.025); Urobilinogen 0.2 EU/dL (Up TO 0.2); pH 5.5 (5-8)
[2020-01-19 22:30] LABS: Bacteria Few HPF (Negative); Casts Negative LPF (Negative); Crystals Many Amorphous HPF (Negative); Epithelial Cells Moderate HPF (Negative); Mucus Negative (Negative); RBC 0-2 HPF (0-2)
[2020-01-19 22:31] LABS: Abs Immature Grans 0.04 10^3/uL (0.0-0.06); Absolute Basophil Count 0.05 10^3/uL (0.0-0.2); Absolute Eosinophil Count 0.12 10^3/uL (0.0-0.7); Absolute Lymphocyte Count 1.53 10^3/uL (1.2-3.4); Absolute Monocyte Count 0.69 10^3/uL (0.1-0.8); Absolute Neutrophil Count 6.84 10^3/uL (1.2-6.7); Basophils % 0.5; C & S Indicated? Yes; Eosinophils % 1.3; HCT 41.2 % (36.0-46.0); HGB 12.6 g/dL (11.2-15.7); Immature Grans % 0.4; Lymphocytes % 16.5; MCH 28.5 pg (27.0-33.0); MCHC 30.6 % (32.0-36.0); MCV 93.2 fL (80-95); MPV 11.7 fL (8.0-11.0); Monocytes % 7.4; Neutrophils % 73.9; Nucleated RBC 0 %; Platelet Count 242 10^3/uL (130-400); RBC 4.42 10^6/uL (3.93-5.22); RDW 13.9 % (11.7-14.6); RDW-SD 47.9 fL; WBC 9.27 10^3/uL (4.4-10.8)
[2020-01-19 22:50] LABS: ALT 21 U/L (14-59); AST 21 U/L (15-37); Albumin 3.6 g/dL (3.4-5.0); Alkaline Phosphatase 139 U/L (46-116); Anion Gap 8.4 mmol/L (3-11); BUN 44 mg/dL (7-18); Bilirubin, Total 0.3 mg/dL (0.2-1.0); CO2 28.6 mmol/L (21.0-32.0); CREATININE 1.56 mg/dL (0.55-1.02); Calcium 9.5 mg/dL (8.5-10.1); Chloride 102 mmol/L (98-107); Glucose 119 mg/dL (74-106); Sodium 139 mmol/L (136-145); TSH (W/Ref FT4) 3.98 uIU/mL (0.36-3.74); Total Protein 7.5 g/dL (6.4-8.2)
[2020-01-19 23:07] LABS: FREE T4 1.06 ng/dL (0.76-1.46)
== END 2020-01-19 22:38 ==
LOC: LBN 22:18
PROVIDERS: PCP Nurse Practitioner; Visit Provider Family Medicine
DX: I10 Essential (primary) hypertension (principal); R53.1 Weakness
CPT/HCPCS: 80053; 81003; 81015; 84439; 84443; 85025; 87086

== ENCOUNTER 2020-01-28 14:57 | Outpatient (CLI) | payer MEDICARE, SELFPAY ==
--- NOTE | 2020-01-28 14:15 | DI.US_ITS ---
EXAM: US LOWER EXTREMITY VENOUS RT CLINICAL HISTORY: edema R60.9 TECHNIQUE: Right lower extremity venous ultrasound performed using grayscale, color-flow, and spectr al Doppler analysis. COMPARISON: No exams were available for comparison FINDINGS: The right common femoral, femoral and popliteal veins demonstrate normal compressibility, augmentatio n, and color Doppler. The posterior tibial veins are patent. The saphenofemoral junction is unremark able. There is no evidence of a Osei cyst. The soft tissues are unremarkable. IMPRESSION: No DVT. DATA REPOSITORY:
== END 2020-01-28 15:17 ==
PROVIDERS: PCP Nurse Practitioner; Visit Provider Nurse Practitioner
DX: R60.9 Edema, unspecified (principal)
CPT/HCPCS: 93971

== ENCOUNTER 2020-02-15 11:24 | Outpatient (CLI) | payer MEDICARE, SELFPAY ==
[2020-02-15 12:43] LABS: Anion Gap 10.1 mmol/L (3-11); BUN 33 mg/dL (7-18); CO2 26.9 mmol/L (21.0-32.0); CREATININE 1.46 mg/dL (0.55-1.02); Calcium 9.5 mg/dL (8.5-10.1); Chloride 103 mmol/L (98-107); Estimated GFR 34.21 (mL/min/1.73m2); Glucose 142 mg/dL (74-106); Sodium 140 mmol/L (136-145)
== END 2020-02-15 11:44 ==
PROVIDERS: PCP Nurse Practitioner; Visit Provider Family Medicine
DX: E87.1 Hypo-osmolality and hyponatremia (principal)
CPT/HCPCS: 80048

== ENCOUNTER 2020-03-31 11:59 | Outpatient (CLI) | payer MEDICARE, SELFPAY ==
[2020-03-31 13:25] LABS: CREATININE 1.53 mg/dL (0.55-1.02); Estimated GFR 32.41 (mL/min/1.73m2); Potassium 4.5 mmol/L (3.5-5.1); TSH 4.76 uIU/mL (0.36-3.74)
== END 2020-03-31 12:19 ==
PROVIDERS: PCP Nurse Practitioner; Visit Provider Nurse Practitioner
DX: N25.9 Disorder resulting from impaired renal tubular function, unspecified (principal); I10 Essential (primary) hypertension
CPT/HCPCS: 36415; 82565; 84132; 84443

== ENCOUNTER 2021-02-06 17:02 | Outpatient (REF) | payer MEDICARE, SELFPAY ==
[2021-02-06 20:33] LABS: CREATININE 1.4 mg/dL (0.55-1.02); Estimated GFR 35.82 (mL/min/1.73m2); Potassium 4.9 mmol/L (3.5-5.1); Vitamin B12 374 pg/mL (193-986)
== END 2021-02-06 17:03 | disposition home or self-care (01) ==
LOC: LBN 17:02
PROVIDERS: PCP Nurse Practitioner; Visit Provider Nurse Practitioner
DX: I10 Essential (primary) hypertension (principal); E53.8 Deficiency of other specified B group vitamins
CPT/HCPCS: 82565; 82607; 84132

== ENCOUNTER 2021-07-17 01:43 | Outpatient (CLI) | payer MEDICARE, SELFPAY ==
[2021-07-17 14:38] LABS: Hemoglobin A1C 5.9 % (<5.7)
[2021-07-17 15:07] LABS: Anion Gap 10.5 mmol/L (3-11); BUN 31 mg/dL (7-18); CO2 25.5 mmol/L (21.0-32.0); CREATININE 1.3 mg/dL (0.55-1.02); Calcium 9.2 mg/dL (8.5-10.1); Chloride 103 mmol/L (98-107); Estimated GFR 39.02 (mL/min/1.73m2); Glucose 159 mg/dL (74-106); Potassium 4.8 mmol/L (3.5-5.1); Sodium 139 mmol/L (136-145); TSH (W/Ref FT4) 1.81 uIU/mL (0.36-3.74)
== END 2021-07-17 01:44 | disposition home or self-care (01) ==
LOC: LBO 01:43
PROVIDERS: PCP Nurse Practitioner; Visit Provider Nurse Practitioner
DX: R73.03 Prediabetes (principal); I10 Essential (primary) hypertension; G25.0 Essential tremor
CPT/HCPCS: 36415; 80048; 83036; 84443

== ENCOUNTER 2021-09-22 14:27 | Observation (INO) | payer MEDICARE, SELFPAY ==
[2021-09-22] VITALS (66 sets, daily range): BP systolic 148–201; BP diastolic 71–91; PULSE 53–72; RESP 13–20; TEMP 36.5–36.6; O2SAT 92–99
--- NOTE | 2021-09-22 | DI.RAD_ITS ---
Exam(s) XR CHEST 2V PA LATERAL EXAM: XR CHEST 2V PA LATERAL CLINICAL HISTORY: dyspnea TECHNIQUE: 2D digital imaging was performed of the chest. Two images were obtained. PA and lateral views were obtained. COMPARISON: CR XR CHEST 2V PA LATERAL from 07/14/2018 CR,XR XR CHEST 2V PA LATERAL from 06/28/2019 FINDINGS: MEDIASTINUM: Normal. HEART: Normal. PULMONARY VASCULATURE: Normal. LUNGS: There has been increased size of an ovoid density in the left mid lung base. PLEURAL SPACE: No pleural effusion or pneumothorax. BONE:Within normal limits for the patient's age. OTHER FINDINGS:Normal. IMPRESSION: Ovoid density in the left lung base. CT scan should be considered to exclude a pulmonary mass. DATA REPOSITORY: RADIATION DOSE DELIVERED:
--- NOTE | 2021-09-22 14:30 | RT.EKG_ITS ---
APPROVED REPORT Exam: Resting ECG Reason for Exam: generalized weakness Patient Location: E HR:62 bpm ECG Measurements Heart Rate 62 AXIS AL 131 P 28 QRSd 94 QRS 30 QT 414 T 57 QTc 422 Conclusion Sinus rhythm...normal P axis, V-rate 60- 99
--- NOTE | 2021-09-22 14:57 | ED.GENADUL_ITS ---
Discharge Plan Disposition Patient Disposition: [facility] INPATIENT Condition: Improving Discharge Details Clinical Impression: Acute hyperkalemia Admit Date/Time: 09/22/21 20:25 Admit Provider: Sylvester Dunbar Attending Provider: Sylvester Dunbar Primary Care Provider: Eloina Brewer ED Provider: Roderick Garnica Discharge Data Discharge Date/Time-TO BE ENTERED AT DEPARTURE: 09/22/21 20:23 Medical Decision Making This is an 85-year-old female who presents from home with onset of epigastric discomfort and nausea. She question chest tightness associated with this. She has not recently been ill, no known sick contacts. She arrives to the ER with blood pressure in the 190s, mildly anxious, and on an extensive review of system will note some recent constipation for which she frequently takes laxatives and for which she recently had some loose and watery stool. Broad differential diagnosis considered including dehydration, electrolyte abnormalities, foregut pathology. Patient IV access established, fluids initiated and referred for laboratory testing. White blood cell count is 7, hematocrit 42, platelets 179. Chemistries show sodium 136, potassium 6.5, BUN 48 and creatinine 1.3. LFTs, troponin, lipase are unremarkable. This is the patient's baseline her BUN is elevated and consistent with prerenal hypovolemia. Patient given fluids, 15 g of Kayexalate, observed. Patient is making urine. Her repeat potassium remains elevated at 6.3 but it is improving. I do feel she merits admission for overnight monitoring. HPI General Mode of arrival: ambulatory . Date/Time Provider Initiated Documentation: 09/22/21 14:36 . Limitations to Documentation: no limitations . Information obtained by: patient . History of Present Illness 85 year old F presents to the emergency department with the chief complaint of Nausea and upset stomach, described as mild, and is localized to the abdomen. Patient reports no radiation. Patient started experiencing this hour(s) and it has been other (Improving). No relieving factors improve symptom(s), No exacerbating factors reported . Patient notes other (Nauseated without emesis); denies fever/chills, shortness of breath, syncope and weakness. Pat ient did receive the following treatments prior to arrival, none Related Data Home Medications Medication Instructions Recorded Confirmed metoprolol succinate 25 mg 25 mg PO DAILY #90 tabs 12/07/20 09/22/21 tablet,extended release 24 hr levothyroxine 25 mcg tablet 25 mcg PO DAILY #90 tabs 07/19/21 09/22/21 lisinopril 20 mg tablet 20 mg PO DAILY #90 tabs 08/14/21 09/22/21 Previous Rx's Medication Instructions Recorded metoprolol succinate 25 mg 25 mg PO DAILY #90 tabs 12/07/20 tablet,extended release 24 hr levothyroxine 25 mcg tablet 25 mcg PO DAILY #90 tabs 07/19/21 lisinopril 20 mg tablet 20 mg PO DAILY #90 tabs 08/14/21 Allergies Allergy/AdvReac Type Severity Reaction Status Date / Time amlodipine Allergy Severe Tongue Verified 09/22/21 14:39 swelling Sulfa (Sulfonamide Allergy Unknown rash, sick Verified 09/22/21 14:39 Antibiotics) to stomach General Stated Complaint: GenMedical JENNIFER: 3 Review of Systems Narrative: 6 systems reviewed and otherwise negative. Denies recent illness. 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 and does not take immunizations PFSH All Active Problems (Updated 09/22/21 @ 20:51 by Sylvester Dunbar MD) Dyspnea (Acute) Acute hyperkalemia (Acute) Memory changes (Acute) Hypothyroid (Chronic) 03/26/21- TSH 2.95 [facility]0 WNL CKD (chronic kidney disease) stage 3, GFR 30-59 ml/min (Acute) Essential tremor (Acute) familial Gait abnormality (Acute) uses a walker when out, balance and shuffling steps Prediabetes (Acute) 03/26/21- A1c 5.9 [facility] Hypertension (Chronic) Anxiety (Chronic) Macular degeneration (Acute) Medical History Acute infective polyneuritis (~04/03/1966) B12 deficiency Cerebrovascular accident 06/12 CT @ [facility]: SMALL LACUNAR INFARCTS. Incidental findings. Pt. states she is unaware of this dx. 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 states she is unaware of this. Pneumonia (~07/20/18) Prerenal azotemia Surgical History Cholecystectomy (~1991) Fracture, Closed Treatment (04/10/14) LEFT SHOULDER FX AND DISLOCATED Posterior subcapsular age-related cataract, right eye Status post extracapsular cataract extraction of left eye Family History Mother , age 56 Cancer Father , age 76 Heart disease Sister No problems noted. Son No problems noted. Daughter No problems noted. Maternal Grandfather , age 78 No problems noted. Paternal Grandfather , age 62 Stroke Maternal Grandmother , age 89 - Accident No problems noted. Paternal Grandmother , age 68 No problems noted. Social History Smoking/Tobacco Use Status: Never Second Hand Exposure: Yes Smoking risk assessment performed?: Yes Alcohol Intake: never Drug use: Never Substance use type: does not use Counseling given: No Caregiver/Support person: No Household members: none Housing: house Communication Needs: Hard of Hearing Do you need help understanding health information?: Rarely Pets and animals: No Sexually active: No Do you think of yourself as: straight/heterosexual Current gender identity: female What is your relationship status?: How often do you talk on the phone with friends or family?: three or more times per week How often do you get together with friends or relatives?: three or more times per week How often do you attend uatsdin or lutheran services?: 4 or more times per year Do you belong to any clubs or organized social groups?: no Panel score (0-1 are the most socially isolated patients): 2 What type of physical activity do you participate in: walking and weight lifting Duration: 60-90 minutes/day Frequency: 1-2 times per week Anai/Confucianist: Rastafarian Special anai needs: No Seatbelt use: always Helmet use: No Drive intox or ride w/intox p d driver: No Do you feel safe at home: Yes Additional Social history: lives alone Exam Narrative Exam Narrative: GEN: awake, alert, oriented 3. Pleasant, well groomed, interactive. HEAD: Normocephalic, atraumatic ENT: Mucous membranes moist, oropharynx unremarkable, External ear exam unremarkable EYES: PERRL, EOMI NECK: Full ROM, no LUIS ENRIQUE, no menigismus CHEST/RESP: Nontender, clear to auscultation bilateral, no wheeze/rhonchi/rales CARDIOVASCULAR: RRR, no murmur, rub maddy. 2+ Rad pulse bilateral ABDOMEN: Soft, minimal discomfort with epigastric palpation, nontender, no mass. +Bowel sounds EXT: Full ROM, no edema, no rash Neuro: Grossly normal neurologic exam, conversant, interactive. Psych: Speech fluent, thoughts congruent, affect normal Course Vital Signs Vital signs: Vital Signs Temperature 36.5 C 09/22/21 14:28 Pulse 68 09/22/21 14:28 Respiratory Rate 20 09/22/21 14:28 Blood Pressure 201/91 H 09/22/21 14:28 Pulse Oximetry 99 09/22/21 14:28 Temperature 36.5 C 09/22/21 14:28 Temperature Source Temporal Artery Scan 09/22/21 14:28 Pulse 68 09/22/21 14:28 Respiratory Rate 13 09/22/21 14:35 Respiratory Effort Short of Breath 09/22/21 14:35 Respiratory Depth Normal 09/22/21 14:35 Respiratory Pattern Normal 09/22/21 14:35 Blood Pressure 201/91 H 09/22/21 14:28 Blood Pressure Position Sitting 09/22/21 14:28 Pulse Oximetry 99 09/22/21 14:28 Oxygen Delivery Method Room Air 09/22/21 14:28 Oxygen Flow Rate 0 09/22/21 14:28 Pain Level 6 09/22/21 14:28
[2021-09-22] MEDS: LORazepam 2 MG/ML VIAL 0.5 MG IVP (15:34)
[2021-09-22 15:35] LABS: Abs Immature Grans 0.03 10^3/uL (0.0-0.06); Absolute Basophil Count 0.06 10^3/uL (0.0-0.2); Absolute Lymphocyte Count 1.15 10^3/uL (1.2-3.4); Absolute Monocyte Count 0.44 10^3/uL (0.1-0.8); Absolute Neutrophil Count 5.98 10^3/uL (1.2-6.7); Basophils % 0.8; Eosinophils % 1.3; HCT 42.9 % (36.0-46.0); HGB 13.7 g/dL (11.2-15.7); Immature Grans % 0.4; Lymphocytes % 14.8; MCH 29.5 pg (27.0-33.0); MCHC 31.9 % (32.0-36.0); MCV 93 fL (80-95); MPV 11.5 fL (8.0-11.0); Monocytes % 5.7; Platelet Count 179 10^3/uL (130-400); RBC 4.64 10^6/uL (3.93-5.22); RDW 14.6 % (11.7-14.6); WBC 7.76 10^3/uL (4.4-10.8)
[2021-09-22 15:48] LABS: ALT 17 U/L (14-59); AST 20 U/L (15-37); Albumin 3.7 g/dL (3.4-5.0); Alkaline Phosphatase 155 U/L (46-116); Anion Gap 8.3 mmol/L (3-11); BUN 49 mg/dL (7-18); Bilirubin, Total 0.3 mg/dL (0.2-1.0); CO2 22.7 mmol/L (21.0-32.0); CREATININE 1.4 mg/dL (0.55-1.02); Calcium 9.4 mg/dL (8.5-10.1); Chloride 104 mmol/L (98-107); Estimated GFR 35.82 (mL/min/1.73m2); Glucose 134 mg/dL (74-106); Sodium 135 mmol/L (136-145); Total Protein 7.8 g/dL (6.4-8.2)
[2021-09-22 15:51] LABS: Lipase 89 U/L (73-393); Magnesium 2.4 mg/dL (1.8-2.4); Troponin I < 50 ng/L (<or=60)
[2021-09-22 15:54] LABS: Potassium 6.7 mmol/L (3.5-5.1)
[2021-09-22] MEDS: Normal Saline 500 ML IV (16:00)
[2021-09-22 16:20] LABS: Anion Gap 5.5 mmol/L (3-11); BUN 48 mg/dL (7-18); CO2 23.5 mmol/L (21.0-32.0); CREATININE 1.3 mg/dL (0.55-1.02); Calcium 9.1 mg/dL (8.5-10.1); Chloride 107 mmol/L (98-107); Estimated GFR 39.02 (mL/min/1.73m2); Glucose 116 mg/dL (74-106); Sodium 136 mmol/L (136-145)
[2021-09-22 16:22] LABS: Potassium 6.5 mmol/L (3.5-5.1)
[2021-09-22] MEDS: Normal Saline 1,000 ML 1000 ML IV (16:44)
[2021-09-22 19:34] LABS: Anion Gap 5.1 mmol/L (3-11); BUN 43 mg/dL (7-18); CO2 23.9 mmol/L (21.0-32.0); CREATININE 1.2 mg/dL (0.55-1.02); Calcium 8.5 mg/dL (8.5-10.1); Chloride 110 mmol/L (98-107); Glucose 93 mg/dL (74-106); Sodium 139 mmol/L (136-145)
[2021-09-22 19:37] LABS: Potassium 6.3 mmol/L (3.5-5.1)
--- NOTE | 2021-09-22 20:40 | W.PM.HP.N ---
Assessment and Plan Assessment and plan (1) Acute hyperkalemia: Status: Acute Assessment and plan: Etiology of the hyperkalemia is not clear. The level has come down and most recent was 6.3. I will give her a dose of sodium zirconium now and then continue this 3 times a day. We will check a potassium level later this evening and again tomorrow. I am holding off on her lisinopril at this time. (2) Dyspnea: Status: Acute Assessment and plan: Etiology of the dyspnea is not clear at this time. I will check a chest x-ray and a D-dimer test. History of Present Illness History of Present Illness Chief Complaint: not feeling well Narrative: This 85-year-old female came to emergency department because of not feeling well. She states that she had some epigastric discomfort either last night or today. She cannot quite remember. She had some nausea associated with this along with some dyspnea. She states she felt fine yesterday. She has had some constipation but says she has not taken any medicine for this. Her last bowel movement was yesterday. She is felt little bit lightheaded today. She uses regular salt. She was found to be hyperkalemic with a potassium of 6.7 here in the emergency department. She was given Kayexalate and had an electrocardiogram done. She was also given intravenous fluids. Her repeat potassium went from 6.7-6.5 and most recent was 6.3. Emergency doctor did not think her electrocardiogram looked a different than her previous feelings. She lives by herself in a senior housing placed on [facility] in [place]. She says she has not been around anyone else been sick. She does not use tobacco. She has a history of Guilian Ruiz? syndrome when she was 31 years old and does not take immunizations because of the fear of getting this again. She has not had COVID vaccines. She states she uses regular salt and has been taking her medicines properly which includes levothyroxine, lisinopril and metoprolol. Review of Systems Constitutional Constitutional: Denies chills, Denies fever(s), Denies poor appetite and Denies weakness Cardiovascular Cardiovascular: Denies chest pain, Denies diaphoresis, Denies syncope, Denies rapid heart rate, Denies edema, Denies irregular heart rhythm, Denies radiating jaw, neck or arm pain, Denies palpitations and Reports dyspnea Respiratory Respiratory: Denies cough, Denies hemoptysis and Reports dyspnea Gastrointestinal Gastrointestinal: Reports abdominal pain, Reports constipation, Denies diarrhea, Reports nausea and Denies vomiting Genitourinary Genitourinary: Denies hematuria, Denies urinary frequency and Denies difficulty voiding Neurologic Neurologic: Denies syncope, Denies convulsions and Denies weakness Endocrine Endocrine: Denies palpitations Hematologic/Lymphatic Hematologic/Lymphatic: Denies easy bleeding and Denies easy bruising PFSH All Active Problems (Updated 09/22/21 @ 20:51 by Sylvester Dunbar MD) Dyspnea (Acute) Acute hyperkalemia (Acute) Memory changes (Acute) Hypothyroid (Chronic) 03/26/21- TSH 2.95 [facility]0 WNL CKD (chronic kidney disease) stage 3, GFR 30-59 ml/min (Acute) Essential tremor (Acute) familial Gait abnormality (Acute) uses a walker when out, balance and shuffling steps Prediabetes (Acute) 03/26/21- A1c 5.9 [facility] Hypertension (Chronic) Anxiety (Chronic) Macular degeneration (Acute) Medical History Acute infective polyneuritis (~04/03/1966) B12 deficiency Cerebrovascular accident 06/12 CT @ [facility]: SMALL LACUNAR INFARCTS. Incidental findings. Pt. states she is unaware of this dx. 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 states she is unaware of this. Pneumonia (~07/20/18) Prerenal azotemia Surgical History Cholecystectomy (~1991) Fracture, Closed Treatment (04/10/14) LEFT SHOULDER FX AND DISLOCATED Posterior subcapsular age-related cataract, right eye Status post extracapsular cataract extraction of left eye Family History Mother , age 56 Cancer Father , age 76 Heart disease Sister No problems noted. Son No problems noted. Daughter No problems noted. Maternal Grandfather , age 78 No problems noted. Paternal Grandfather , age 62 Stroke Maternal Grandmother , age 89 - Accident No problems noted. Paternal Grandmother , age 68 No problems noted. Social History Smoking/Tobacco Use Status: Never Second Hand Exposure: Yes Smoking risk assessment performed?: Yes Alcohol Intake: never Drug use: Never Substance use type: does not use Counseling given: No Caregiver/Support person: No Household members: none Housing: house Communication Needs: Hard of Hearing Do you need help understanding health information?: Rarely Pets and animals: No Sexually active: No Do you think of yourself as: straight/heterosexual Current gender identity: female What is your relationship status?: How often do you talk on the phone with friends or family?: three or more times per week How often do you get together with friends or relatives?: three or more times per week How often do you attend scientologist or episcopalian services?: 4 or more times per year Do you belong to any clubs or organized social groups?: no Panel score (0-1 are the most socially isolated patients): 2 What type of physical activity do you participate in: walking and weight lifting Duration: 60-90 minutes/day Frequency: 1-2 times per week Anai/Cheondoism: Orthodoxy Special anai needs: No Seatbelt use: always Helmet use: No Drive intox or ride w/intox regional 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: No Do you feel safe at home: Yes Additional Social history: lives alone Meds Allergies and Home Medications Allergies Allergy/AdvReac Type Severity Reaction Status Date / Time amlodipine Allergy Severe Tongue Verified 09/22/21 14:39 swelling Sulfa (Sulfonamide Allergy Unknown rash, sick Verified 09/22/21 14:39 Antibiotics) to stomach Home Medications Medication Instructions Recorded Confirmed Type metoprolol succinate 25 mg 25 mg PO DAILY #90 tabs 12/07/20 09/22/21 Rx tablet,extended release 24 hr levothyroxine 25 mcg tablet 25 mcg PO DAILY #90 tabs 07/19/21 09/22/21 Rx lisinopril 20 mg tablet 20 mg PO DAILY #90 tabs 08/14/21 09/22/21 Rx Exam Const General: cooperative, comfortable, no acute distress, well developed, well groomed, not ill appearing and does not appear intoxicated Nutritional Appearance: overweight Orientation: alert, awake and oriented x3 HENMT Mouth: oral mucosae normal and moist mucous membranes Neck Neck: normal visual inspection, no lymphadenopathy, no meningeal signs and no JVD Resp Auscultation: clear to auscultation bilaterally, no rales and no wheezes Cardio Rate: regular rate Rhythm: regular rhythm Heart Sounds: S1 normal, S2 normal, no gallops and no murmurs GI Palpation: soft, no hepatosplenomegaly, not firm, not rigid, nontender and No ascites Skin General skin exam: no rashes or lesions noted Neuro Cranial Nerves: CN's II-XI intact bilaterally Cognition: normal cognition Speech: speech normal Extrem General: normal to inspection, no calf tenderness bilaterally, no cyanosis and no edema Results Labs Result diagrams: 09/22/21 15:27 09/22/21 19:20 Labs: Laboratory Results - last 24 hr 09/22/21 09/22/21 09/22/21 15:27 15:27 15:27 WBC 7.76 RBC 4.64 Hgb 13.7 Hct 42.9 MCV 93 MCH 29.5 MCHC 31.9 L RDW 14.6 Plt Count 179 MPV 11.5 H Immature Gran % 0.4 Neutrophils % 77.0 Lymphocytes % 14.8 Monocytes % 5.7 Eosinophils % 1.3 Basophils % 0.8 Nucleated RBC % 0.0 Absolute Neutrophils 5.98 Absolute Lymphocytes 1.15 L Absolute Monocytes 0.44 Absolute Eosinophils 0.10 Absolute Basophils 0.06 Sodium 135 L Potassium 6.7 H* Chloride 104 Carbon Dioxide 22.7 Anion Gap 8.3 BUN 49 H Creatinine 1.4 H Estimated GFR/1.73 m2 35.82 Glucose 134 H Calcium 9.4 Magnesium 2.4 Total Bilirubin 0.3 AST 20 ALT 17 Alkaline Phosphatase 155 H Troponin I < 50 Total Protein 7.8 Albumin 3.7 Lipase 89 09/22/21 09/22/21 16:10 19:20 WBC RBC Hgb Hct MCV MCH MCHC RDW Plt Count MPV Immature Gran % Neutrophils % Lymphocytes % Monocytes % Eosinophils % Basophils % Nucleated RBC % Absolute Neutrophils Absolute Lymphocytes Absolute Monocytes Absolute Eosinophils Absolute Basophils Sodium 136 139 Potassium 6.5 H* 6.3 H* Chloride 107 110 H Carbon Dioxide 23.5 23.9 Anion Gap 5.5 5.1 BUN 48 H 43 H Creatinine 1.3 H 1.2 H Estimated GFR/1.73 m2 39.02 42.80 Glucose 116 H 93 Calcium 9.1 8.5 Magnesium Total Bilirubin AST ALT Alkaline Phosphatase Troponin I Total Protein Albumin Lipase Last Vital Signs Temp 36.5 C 09/22/21 14:28 Pulse 68 09/22/21 14:28 Resp 15 09/22/21 18:21 BP 201/91 H 09/22/21 14:28 Pulse Ox 97 09/22/21 18:21
--- NOTE | 2021-09-22 21:26 | DI.VRAD_ITS ---
PROCEDURE INFORMATION: Exam: XR Chest Exam date and time: 09/22/2021 21:00 Age: 85 years old Clinical indication: Other: Dyspnea TECHNIQUE: Imaging protocol: XR of the chest. Views: 2 views. COMPARISON: CR XR CHEST 2V PA LATERAL 06/28/2019 21:02 FINDINGS: Lungs: Emphysema again seen. Increased size of a 15 x 30 mm density in the left lung base. Pleural spaces: No pleural effusion. No pneumothorax. Heart/Mediastinum: No cardiomegaly. Bones/joints: Chronic bony changes with no acute fracture. IMPRESSION: 1. Emphysema again seen. 2. Increased size of a 15 x 30 mm density in the left lung base. Consider follow-up to exclude a mass lesion. Dictated and Authenticated by: January Dennis MD. Ordering:GAGE Phan MD
[2021-09-22 21:46] LABS: Bilirubin Negative (Negative); Blood Negative (Negative); Clarity Clear (Clear); Glucose Negative (Negative); Ketones Negative (Negative); Leukocyte Esterase Negative (Negative); Nitrite Negative (Negative); Urobilinogen 0.2 EU/dL (Up TO 0.2); pH 7.5 (5-8)
[2021-09-22] MEDS: Normal Saline Flush 10 ML SYR IVP (22:17)
[2021-09-22] MEDS: Enoxaparin 40 MG/0.4 ML SYR SC (22:17)
[2021-09-22] MEDS: Sodium Zirconium Cyclosilicate 10 GM PKT PO (22:17)
[2021-09-22] MEDS: Normal Saline 1,000 ML 125 ML IV (22:17)
[2021-09-22 23:22] LABS: Anion Gap 5.1 mmol/L (3-11); CO2 23.9 mmol/L (21.0-32.0); Chloride 110 mmol/L (98-107); Sodium 139 mmol/L (136-145)
[2021-09-22 23:27] LABS: Potassium 4.9 mmol/L (3.5-5.1)
[2021-09-22 23:43] LABS: D-Dimer 1723 ng/mlFEU (<500)
[2021-09-23] VITALS (8 sets, daily range): BP systolic 137–172; BP diastolic 77–85; PULSE 44–79; RESP 18; TEMP 36.4–36.7; O2SAT 96–98
--- NOTE | 2021-09-23 | DI.CT_ITS ---
Exam(s) CT CHEST PE CTA EXAM: CT CHEST PE CTA CLINICAL HISTORY: dyspnea, elevated dimer. TECHNIQUE: Imaging Protocol: Axial CT angiography was performed with multi-slice acquisition and mu lti-planar and/or 3D reconstructions. CONTRAST MATERIAL: Intravenous: Visipaque 320Contrast volume:100 mL COMPARISON: CR,XR XR CHEST 2V PA LATERAL from 06/28/2019 CR,XR XR CHEST 2V PA LATERAL from 09/22/2021 FINDINGS: The examination is limited due to patient motion artifact. Tracheobronchial tree: Patent where visualized. Pulmonary parenchyma: There is a 3.1 x 1.6 cm ovoid opacity in the left lower lobe. There is scarrin g in the lung bases. No architectural distortion. Pulmonary Arteries: Evaluation of the peripheral pulmonary arteries are is limited due to patient mot ion artifact. No central pulmonary embolus is seen. Mediastinum and Bertha: No dominant adenopathy or fluid collection. The esophagus is unremarkable. Visualized thyroid gland: Unremarkable. Pleura: No effusion or pneumothorax. Heart: The heart is not dilated. Coronary artery calcifications are present. No pericardial effusion . Aorta: Thoracic aorta non-dilated. No evidence of dissection. Atherosclerosis is present. Upper abdomen: A 6.5 x 6.7 cm cystic lesion is incompletely imaged in the right upper quadrant. The gallbladder is not visualized. The patient may be status post cholecystectomy. Soft tissues: Unremarkable. Bones: Within normal limits for the patient's age. IMPRESSION: 1. Examination limited by patient motion artifact. 2. No large central pulmonary embolus is identified. Peripheral pulmonary artery evaluation is limit ed by patient motion artifact. 3. Ovoid opacity in the left lower lobe. This area has increased in size compared to the chest x-ray from 06/28/2019. Mass cannot be excluded. Follow-up imaging is recommended. This may include a CT- PET examination. A follow-up CT scan of the chest may also be considered to assess for resolution of the opacity. RADIATION DOSE DELIVERED: 374.76mGy.cm Total DLP DATA REPOSITORY: All CT scans at this facility are submitted to the National Radiology Data Registry (NRDR) Dose Index Registry (DIR) with the [employer] (ACR). RADIATION OPTIMIZATION: All CT scans at this facility use at least one of these dose optimization te chniques: automated exposure control; mA and/or kV adjustment per patient size (includes targeted exa ms where dose is matched to clinical indication); or iterative reconstruction.
[2021-09-23] MEDS: Normal Saline 1,000 ML 125 ML IV ×3 (04:59→22:35)
[2021-09-23] MEDS: Sodium Zirconium Cyclosilicate 10 GM PKT PO ×3 (05:31→21:22)
[2021-09-23 06:49] LABS: Anion Gap 8.5 mmol/L (3-11); BUN 36 mg/dL (7-18); CO2 23.5 mmol/L (21.0-32.0); CREATININE 1.1 mg/dL (0.55-1.02); Calcium 8.4 mg/dL (8.5-10.1); Chloride 112 mmol/L (98-107); Estimated GFR 47.32 (mL/min/1.73m2); Glucose 80 mg/dL (74-106); Sodium 144 mmol/L (136-145); TSH (W/Ref FT4) 2.02 uIU/mL (0.36-3.74)
[2021-09-23] MEDS: Metoprolol CR 25 MG TABCR PO (08:53)
[2021-09-23] MEDS: Levothyroxine 25 MCG TAB PO (08:53)
[2021-09-23] MEDS: Normal Saline Flush 10 ML SYR IVP (09:27)
--- NOTE | 2021-09-23 09:55 | DI.VRAD_ITS ---
PROCEDURE INFORMATION: Exam: CTA Chest With Contrast Exam date and time: 09/23/2021 9:16 AM Age: 85 years old Clinical indication: Other: Dyspnea, elevated dimer TECHNIQUE: Imaging protocol: Computed tomographic angiography of the chest with contrast. 3D rendering (Not supervised by radiologist): MIP and/or 3D reconstructed images were created by the technologist. Radiation optimization: All CT scans at this facility use at least one of these dose optimization techniques: automated exposure control; mA and/or kV adjustment per patient size (includes targeted exams where dose is matched to clinical indication); or iterative reconstruction. Contrast material: VISIPAQUE 320; Contrast volume: 100 ml; Contrast route: INTRAVENOUS (IV); COMPARISON: CR XR CHEST 2V PA LATERAL 09/22/2021 9:00 PM FINDINGS: Pulmonary arteries: Motion limited assessment. No large or central filling defects. Aorta: No aortic aneurysm. No aortic dissection. Atherosclerosis. Direct origin of the left vertebral artery from the arch. Lungs: Left lower lobe 3.8 cm consolidation with some surrounding ground-glass and reticulation. Pleural spaces: No pneumothorax. No pleural effusion. Heart: No cardiomegaly. No pericardial effusion. Moderate coronary artery calcifications. Lymph nodes: Unremarkable. No enlarged lymph nodes. Kidneys and ureters: Partially imaged 6.2 cm simple appearing cyst in the right upper quadrant likely arising from the right kidney. Bones/joints: Unremarkable. No acute fracture. Soft tissues: Unremarkable. IMPRESSION: 1. Motion limited evaluation is without large or central pulmonary embolism. 2. Left lower lobe consolidation suspicious for pneumonia, though neoplasm is not excluded. Recommend follow-up imaging following appropriate clinical management to document resolution. 3. Coronary artery disease. Dictated and Authenticated by: Vikki Almaguer MD. Ordering:[facility] Eric Hinson MD
--- NOTE | 2021-09-23 09:58 | INITIAL_ITS ---
- If Service Date Differs Date of service: 09/23/21 Time of Service: 09:58 Care Management Initial Assess REASON FOR HOSPITALIZATION:: Hyperkalemia PAST MEDICAL HISTORY/PAST SURGICAL HISTORY:: All Active Problems: Dyspnea (Acute), Acute hyperkalemia (Acute), Memory changes (Acute), Hypothyroid (Chronic) - 03/26/21- TSH 2.95 UVM0 WNL, CKD (chronic kidney disease) stage 3, GFR 30-59 ml/min (Acute), Essential tremor (Acute) - familial, Gait abnormality (Acute) - uses a walker when out, balance and shuffling steps, Prediabetes (Acute) - 03/26/21- A1c 5.9 UVM,. Hypertension (Chronic). Anxiety (Chronic). Macular degeneration (Acute). Medical History . 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 B12 deficiency. Cerebrovascular accident. 06/12 CT @ [facility]: SMALL LACUNAR INFARCTS. Incidental findings. Pt. states she is unaware of this dx. Closed displaced fracture of greater tuberosity of left humerus (04/10/14). Closed fracture of head of left humerus (04/10/14). Dislocation of shoulder, anterior, left, closed (04/10/14). 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 Hallucinations. resolved. Hx of pancreatitis. Hypothyroidism. not taking meds at this time- pt refuses. Meningioma. cerebral, left frontal, small, stable since 2007-Pt. states she is unaware of this. Pneumonia (~07/20/18). Prerenal azotemia. Surgical History . Cholec ystectomy (~1991). Fracture, Closed Treatment (04/10/14). LEFT SHOULDER FX AND DISLOCATED. Posterior subcapsular age-related cataract, right eye. Status post extracapsular cataract extraction of left eye PREVIOUS FUNCTIONAL STATUS/SOCIAL/FAMILY SUPPORTS:: Meredith lives alone in a senior housing apartment in [place]. She is and she has two suportive adult children: daughter Yris who lives in [place], [place], and visits often, and son Diego who lives in [place]. Meredith states she is independent with her ADLs at baseline but has a friend (Nancy Chappell) who takes her to doctor's appointments and helps her with errands such as grocery shopping, etc. CURRENT FUNCTIONAL STATUS:: Meredith is sitting in a chair when CM comes to meet with her. She is alert and easily engages in conversation. She talks about many of the people who live in her apartment building and how helpful and kind they are to her. ADVANCE DIRECTIVES:: Living Will and DPOA on file; daughter Yris is appointed as DPOA. Has patient been provided with info about the portal/API?: Yes Did the patient sign up for the portal?: No CODE STATUS:: Full Code INSURANCE COVERAGE / FINANCIAL ISSUES:: [facility] [employer] and Medicare. CURRENT HOME/COMMUNITY SERVICES/EQUIPMENT:: Meredith states she has MOW and has a person who cleans who home and does her laundry, in addition to Nancy who takes her to appointments and to do errands. Meredith has a life alert, cane and walker. PRIMARY CARE PHYSICIAN:: Eloina Brewer, Ph.D, ANP ([facility]). POTENTIAL DISCHARGE NEEDS:: Follow up appointment with PCP PATIENT/FAMILY EDUCATION NEEDS:: Review of discharge instructions; discuss Ask Me Three. ANTICIPATED BARRIERS TO DISCHARGE:: None identified at this time. TRANSPORTATION:: Via private vehicle with her daughter or son-in-law. PLAN:: Meredith will discharge to her daughter's home with no new services when medically cleared. She will follow up with her PCP and plan of care as directed. She will be transported via private vehicle by family when ready. CM will continue to follow.
--- NOTE | 2021-09-23 13:57 | W.PM.PROGNOT ---
Date of Service Date of service: 09/23/21 Time of Service: 12:57 Assessment and Plan Assessment and plan (1) Acute hyperkalemia: Status: Acute Assessment and plan: improving w/ hydration and lokelma; repeat potassium level this afternoon and if normalized then dc home to the care of her daughter. Will keep her off lisinopril and treat her BP w/ norvasc. Daughter is willing to take her home tonight if she is ok for discharge. (2) Hypertension: Status: Chronic Assessment and plan: dc lisinopril. will Rx for norvasc 5 mg daily. hold metoprolol in setting of severe bradycardia (HR in 40's but sinus bradycardia, no heart block) Qualifiers: Hypertension type: essential hypertension Qualified Code(s): I10 - Essential (primary) hypertension (3) Left lower lobe pulmonary nodule: Status: Acute Assessment and plan: I showed the patient her LLL lung nodule; it is ovoid and peripheral. I will have patient get outpatient chest PET/CT scan. She will go home to stay w/ her daughter in [place], [place] this week. I will write an Rx to get this done in [place]. Note patient has had 40 lb weight loss over past 12 to 18 months (droppoing from 210 to 170) (4) CKD (chronic kidney disease) stage 3, GFR 30-59 ml/min: Status: Acute Subjective Subjective Interval history since last seen: Patient was admitted w/ dehydration and hyperkalemia after presenting to the ED w/ c/o of nause (but no vomiting), no diarrhea, but dyspnea, and left sided chest pressure (that lasted all day yesterday), no cough or sputum production. No fever or rigors. She has had 40 to 50 lb wt loss over past 12 to 18 months (reportedly had weighed 210 lbs about a year and half ago and now weighs 160 lbs (176 by our scales). She has had poor appetite. She says that the wt loss has been intentional. Last night her BUN and creatinine were elevated at 49 and 1.4 and her K+ was 6.7. She was given kayexalate and started on iv fluids in the ER. She has been given lokelma x 2 doses (one last night and one this morning) and her potassium level this morning came down to 5.0 and w/ iv fluids her BUN and creatinine came down to 36 and 1.1. Exam Narrative Exam Narrative: Elderly female who is alert/oriented x 3; she is in no distress; denies current dyspnea or chest pain although this was part of her presenting complaints Lungs: clear Heart: regular but bradycardia Neck: supple, nontender Abdomen: soft, nontender Legs: no edema Objective Last Vital Signs Temp 36.7 C 09/23/21 11:39 Pulse 49 L 09/23/21 11:39 Resp 18 09/23/21 11:39 BP 148/79 H 09/23/21 11:39 Pulse Ox 97 09/23/21 11:39 Laboratory Results - last 24 hr 09/22/21 09/22/21 09/22/21 15:27 15:27 15:27 WBC 7.76 RBC 4.64 Hgb 13.7 Hct 42.9 MCV 93 MCH 29.5 MCHC 31.9 L RDW 14.6 Plt Count 179 MPV 11.5 H Immature Gran % 0.4 Neutrophils % 77.0 Lymphocytes % 14.8 Monocytes % 5.7 Eosinophils % 1.3 Basophils % 0.8 Nucleated RBC % 0.0 Absolute Neutrophils 5.98 Absolute Lymphocytes 1.15 L Absolute Monocytes 0.44 Absolute Eosinophils 0.10 Absolute Basophils 0.06 D-Dimer Sodium 135 L Potassium 6.7 H* Chloride 104 Carbon Dioxide 22.7 Anion Gap 8.3 BUN 49 H Creatinine 1.4 H Estimated GFR/1.73 m2 35.82 Glucose 134 H Calcium 9.4 Magnesium 2.4 Total Bilirubin 0.3 AST 20 ALT 17 Alkaline Phosphatase 155 H Troponin I < 50 Total Protein 7.8 Albumin 3.7 Lipase 89 TSH Urine Color Urine Clarity Urine pH Ur Specific [place] Urine Protein Urine Ketones Urine Blood Urine Nitrite Urine Bilirubin Urine Urobilinogen Ur Leukocyte Esterase Urine Glucose 09/22/21 09/22/21 09/22/21 16:10 19:20 21:30 WBC RBC Hgb Hct MCV MCH MCHC RDW Plt Count MPV Immature Gran % Neutrophils % Lymphocytes % Monocytes % Eosinophils % Basophils % Nucleated RBC % Absolute Neutrophils Absolute Lymphocytes Absolute Monocytes Absolute Eosinophils Absolute Basophils D-Dimer Sodium 136 139 Potassium 6.5 H* 6.3 H* Chloride 107 110 H Carbon Dioxide 23.5 23.9 Anion Gap 5.5 5.1 BUN 48 H 43 H Creatinine 1.3 H 1.2 H Estimated GFR/1.73 m2 39.02 42.80 Glucose 116 H 93 Calcium 9.1 8.5 Magnesium Total Bilirubin AST ALT Alkaline Phosphatase Troponin I Total Protein Albumin Lipase TSH Urine Color Yellow Urine Clarity Clear Urine pH 7.5 Ur Specific [place] 1.020 Urine Protein Negative Urine Ketones Negative Urine Blood Negative Urine Nitrite Negative Urine Bilirubin Negative Urine Urobilinogen 0.2 Ur Leukocyte Esterase Negative Urine Glucose Negative 09/22/21 09/22/21 09/23/21 23:06 23:06 05:57 WBC RBC Hgb Hct MCV MCH MCHC RDW Plt Count MPV Immature Gran % Neutrophils % Lymphocytes % Monocytes % Eosinophils % Basophils % Nucleated RBC % Absolute Neutrophils Absolute Lymphocytes Absolute Monocytes Absolute Eosinophils Absolute Basophils D-Dimer 1723 H Sodium 139 144 Potassium 4.9 D 5.0 Chloride 110 H 112 H Carbon Dioxide 23.9 23.5 Anion Gap 5.1 8.5 BUN 36 H Creatinine 1.1 H Estimated GFR/1.73 m2 47.32 Glucose 80 Calcium 8.4 L Magnesium Total Bilirubin AST ALT Alkaline Phosphatase Troponin I Total Protein Albumin Lipase TSH 2.02 Urine Color Urine Clarity Urine pH Ur Specific [place] Urine Protein Urine Ketones Urine Blood Urine Nitrite Urine Bilirubin Urine Urobilinogen Ur Leukocyte Esterase Urine Glucose
[2021-09-23 16:14] LABS: BUN 35 mg/dL (7-18); CREATININE 1.4 mg/dL (0.55-1.02); Calcium 8.3 mg/dL (8.5-10.1); Chloride 110 mmol/L (98-107); Estimated GFR 35.82 (mL/min/1.73m2); Glucose 96 mg/dL (74-106); Potassium 5.5 mmol/L (3.5-5.1); Sodium 141 mmol/L (136-145)
[2021-09-23] MEDS: Enoxaparin 40 MG/0.4 ML SYR SC (21:22)
[2021-09-24] VITALS (14 sets, daily range): BP systolic 160–222; BP diastolic 75–101; PULSE 40–84; RESP 16–20; TEMP 35.3–36.6; O2SAT 94–96
[2021-09-24] MEDS: Sodium Zirconium Cyclosilicate 10 GM PKT PO ×2 (06:16→13:27)
[2021-09-24 06:36] LABS: Anion Gap 8.8 mmol/L (3-11); BUN 27 mg/dL (7-18); CO2 23.2 mmol/L (21.0-32.0); CREATININE 1.1 mg/dL (0.55-1.02); Calcium 8.5 mg/dL (8.5-10.1); Chloride 113 mmol/L (98-107); Estimated GFR 47.32 (mL/min/1.73m2); Glucose 83 mg/dL (74-106); Potassium 4.2 mmol/L (3.5-5.1); Sodium 145 mmol/L (136-145)
[2021-09-24] MEDS: Levothyroxine 25 MCG TAB PO (07:31)
[2021-09-24] MEDS: Metoprolol CR 25 MG TABCR PO (07:32)
[2021-09-24] MEDS: hydroCHLOROthiazide 25 MG TAB 12.5 MG PO (08:52)
[2021-09-24 12:20] LABS: COVID-19 RT-PCR UVMMC Result Negative (Negative)
[2021-09-24] MEDS: cloNIDine 0.1 MG TAB PO (14:02)
--- NOTE | 2021-09-24 15:46 | W.PM.DS.N ---
Date of service: 09/24/21 Time of Service: 14:46 DS: Diagnosis Discharge Diagnosis (1) Acute hyperkalemia: Status: Resolved (2) Hypertension: Status: Chronic (3) Left lower lobe pulmonary nodule: Status: Acute (4) CKD (chronic kidney disease) stage 3, GFR 30-59 ml/min: Status: Acute Discharge Plan Disposition Patient Disposition: HOME Condition: Improving Discharge Details Reason For Visit: Hyperkalemia Admit Date/Time: 09/22/21 20:25 Admit Provider: Sylvester Dunbar Attending Provider: Sylvester Dunbar Primary Care Provider: [facility] Course Hospital Course: Ms Thornton is an 85 year old female with PMHx of HTN, CKD stage 3, hypothyroidism, essential tremor, who was a patient on [facility] hospitalist service from 09/22/21 until 09/24/21 for hyperkalemia due to (most likely) taking lisinopril. The patient was treated with potassium binders, IVF, and cessation of lisinopril. She did not have any acute EKG changes on EKG or any arrhythmic events. today, her K is 4.2 and her creatinine is 1.1. Because her blood pressure started to climb up again, she was initiated on HCTZ in place of lisinopril. She did require one dose of prn clonidine. The patient and daughter feel that a great deal of today's hypertension ahs to do with her anxiety to get home - and so, she is being discharged home today with follow up with her PCP tomorrow who will evaluate her BP at that time. Additionally, the patient's imaging on this admission (CXR and CTA chest obtained for an elevated d-dimer) showed that she has a LLL opacity, ovoid in nature. She has no evidence of an active pulmonary infection - the density has been seen on prior imaging and has grown. PCP will need to follow this up with a PET CT, and a pulmonology referral is being sent. The patient is medically stable for discharge home today. She should get bloodwork in 1 week. Care for patient as well as completion of her discharge paperwork took 45 minutes on the day of discharge. Home Meds and New Rx's Prescriptions: New hydrochlorothiazide 12.5 mg Capsule 12.5 mg PO DAILY Qty: 30 0RF Continued metoprolol succinate 25 mg tablet extended release 24 hr 25 mg PO DAILY Qty: 90 3RF levothyroxine 25 mcg tablet 25 mcg PO DAILY Qty: 90 4RF Discontinued lisinopril 20 mg tablet 20 mg PO DAILY Qty: 90 3RF Discharge Instructions Instructions: Hydrochlorothiazide (By mouth), Chronic Hypertension (DC) Additional Instructions: Follow up with your PCP as prescribed. Bloodwork in 1 week. Return to the hospital with any fever, bleeding, chest pain, or shortness of breath. Stand Alone Forms: Nursing Discharge Form Referrals: Eloina Brewer NP [Primary Care Provider] - 09/25/21 9:00 am Alexus Mcintosh MD [ [facility] STAFF PHYSICIAN] - (LLL ovoid lung mass) Activity:: Activity as Tolerated Equipment/Supplies:: No Equipment Needed Diet:: Low Sodium Discharge Orders Discharge Orders: Discharge Order (Routine); Ordered 09/24/21 Ordered By: Natasah Ruiz Other Ambulatory Orders: Basic Metabolic Panel (Routine) Timeframe: 20211001 Location: Determined by Patient Ordered By: Natasha Ruiz DS: Summary Time Spent with Patient providing and/or coordinating discharge services: Greater than 30 minutes Status at Discharge Functional status at discharge: uses cane/walker Overall status at discharge: patient is back to baseline Mental Status: mental status grossly normal Speech and Movement: speech and movement normal Mood: congruent mood Affect: normal affect Exam Narrative Exam Narrative: General: Present elderly female with an essential tremor, A&Ox3, NAD HEENT: EOMI, MMM Cardiovascular: RRR, no m/r/g Lungs: faint expiratory wheeze on the R Gastrointestinal: soft, nontender, nondistended Genitourinary: deferred Extremities: trace edema BLEs Psych Mental Status: mental status grossly normal Speech and Movement: speech and movement normal Mood: congruent mood Affect: normal affect DS: Data Vitals/I&O Vitals and I&O: Vital Signs Temperature 36 C L 09/24/21 11:51 Temperature Source Tympanic 09/24/21 11:51 Pulse 84 09/24/21 13:32 Pulse Rhythm Regular 09/24/21 08:33 Respiratory Rate 18 09/24/21 11:51 Respiratory Effort Non-Labored 09/24/21 08:33 Respiratory Depth Normal 09/24/21 08:33 Respiratory Pattern Normal 09/24/21 08:33 Blood Pressure 170/90 H 09/24/21 14:48 Blood Pressure Position Sitting 09/22/21 14:28 Pulse Oximetry 96 09/24/21 11:51 Oxygen Delivery Method Room Air 09/24/21 11:51 Oxygen Flow Rate 0 09/24/21 11:51 Pain Level 0 09/24/21 08:37 Intake & Output 09/23/21 09/24/21 09/24/21 23:59 11:59 23:59 Intake Total 2468.75 / 3306.25 1070.833 / 1270.833 200 / 1270.833 Output Total 300 / 1200 600 / 600 Balance 2168.75 / 2106.25 470.833 / 670.833 200 / 670.833 Intake: IV 1968.75 / 2806.25 770.833 / 770.833 Oral 500 / 500 300 / 500 200 / 500 Output: Urine 300 / 1200 600 / 600 Other: Urine Color Pale Urine Appearance Clear Clear Urine Odor None Comment unmeasured moved hat and voided in toilet Voiding Methods Toilet Data Completed and Pending Labs on day of discharge: Labs from last 24 hours 09/24/21 09/23/21 09/22/21 05:49 15:57 20:05 Sodium 145 141 Potassium 4.2 D 5.5 H Chloride 113 H 110 H Carbon Dioxide 23.2 25.0 Anion Gap 8.8 6.0 BUN 27 H 35 H Creatinine 1.1 H 1.4 H Estimated GFR/1.73 m2 47.32 35.82 Glucose 83 96 Calcium 8.5 8.3 L SARS-CoV-2 (PCR) Negative Nasopharyn COVID-19 PCR Not Applicable Ref Test Perform Site [facility] Additional Comments Additional comments: CXR: Ovoid density in the left lung base.? CT scan should be considered to exclude a pulmonary mass.? CTA chest: 1. Examination limited by patient motion artifact. 2. No large central pulmonary embolus is identified.? Peripheral pulmonary artery evaluation is limited by patient motion artifact. 3. Ovoid opacity in the left lower lobe.? This area has increased in size compared to the chest x-ray from 06/28/2019.? Mass cannot be excluded.? Follow-up imaging is recommended.? This may include a CT-PET examination.? A follow-up CT scan of the chest may also be considered to assess for resolution of the opacity.? 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 Incidental findings. Pt. states she is unaware of this dx. 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 states she is unaware of this. Pneumonia (~07/20/18) Prerenal azotemia Surgical History Cholecystectomy (~1991) Fracture, Closed Treatment (04/10/14) LEFT SHOULDER FX AND DISLOCATED Posterior subcapsular age-related cataract, right eye Status post extracapsular cataract extraction of left eye Family History Mother , age 56 Cancer Father , age 76 Heart disease Sister No problems noted. Son No problems noted. Daughter No problems noted. Maternal Grandfather , age 78 No problems noted. Paternal Grandfather , age 62 Stroke Maternal Grandmother , age 89 - Accident No problems noted. Paternal Grandmother , age 68 No problems noted. Social History Smoking/Tobacco Use Status: Never Second Hand Exposure: Yes Smoking risk assessment performed?: Yes Alcohol Intake: never Drug use: Never Substance use type: does not use Counseling given: No Caregiver/Support person: No Household members: none Housing: house Communication Needs: Hard of Hearing Do you need help understanding health information?: Rarely Pets and animals: No Sexually active: No Do you think of yourself as: straight/heterosexual Current gender identity: female What is your relationship status?: How often do you talk on the phone with friends or family?: three or more times per week How often do you get together with friends or relatives?: three or more times per week How often do you attend sikh or yazidi services?: 4 or more times per year Do you belong to any clubs or organized social groups?: no Panel score (0-1 are the most socially isolated patients): 2 What type of physical activity do you participate in: walking and weight lifting Duration: 60-90 minutes/day Frequency: 1-2 times per week Anai/Temple: Nondenominational Special anai needs: No Seatbelt use: always Helmet use: No Drive intox or ride w/intox fork truck driver: No Do you feel safe at home: Yes Additional Social history: lives alone
--- NOTE | 2021-09-24 15:49 | PDOC.CMDIS ---
- If Service Date Differs Date of service: 09/24/21 Time of Service: 15:49 LACE Index Scoring Tool - Questions: Length of Stay (in days): 1 Acuity (Admit via E.D.?): Yes Comorbidities: Cerebrovascular Disease, Liver or Renal Disease E.D. Visits: 1 - Answers: Total Score: 10 Risk of Readmission: High Risk Care Management Discharge Reason for Hospitalization: Hyperkalemia Discharge Plan: Meredith will discharge to her daughter's home with no new services when medically cleared. She will follow up with her PCP, Eloina Brewer, tomorrow morning, 09/25/21 at 0900. CM communicated with DALIA Garcia at [facility] re: support with F/U for PET scan and notified that Meredith will be discharging to her daughter's home. She will be transported via private vehicle by family when ready. CM will continue to follow. Patient/Family Education Needs: Review discharge instructions, discuss Ask Me Three.
== END 2021-09-24 16:36 | disposition home or self-care (01) ==
LOC: ER 20:34 → MS 21:25
PROVIDERS: Internal Medicine; Admitting Provider Family Medicine; Emergency Provider Emergency Medicine; PCP Nurse Practitioner; Visit Provider Family Medicine
DX: E87.5 Hyperkalemia (principal); R91.1 Solitary pulmonary nodule; E86.1 Hypovolemia; R06.00 Dyspnea, unspecified; R41.3 Other amnesia; E03.9 Hypothyroidism, unspecified; N18.30 Chronic kidney disease, stage 3 unspecified; R26.89 Other abnormalities of gait and mobility; R73.03 Prediabetes; I12.9 Hypertensive chronic kidney disease with stage 1 through stage 4 chronic kidney disease, or unspecified chronic kidney disease; F41.9 Anxiety disorder, unspecified; H35.30 Unspecified macular degeneration; Z86.73 Personal history of transient ischemic attack (TIA), and cerebral infarction without residual deficits; E53.8 Deficiency of other specified B group vitamins; D32.0 Benign neoplasm of cerebral meninges; J43.9 Emphysema, unspecified; I25.10 Atherosclerotic heart disease of native coronary artery without angina pectoris; G25.0 Essential tremor; Z79.899 Other long term (current) drug therapy; Z20.822 Contact with and (suspected) exposure to COVID-19
CPT/HCPCS: 36415; 71275; 80048; 80051; 80053; 83690; 93005; 96360; 96361; 96372; 96374; 99285; J1650; U0003; U0005; 71046; 81003; 83735; 84132; 84443; 84484; 85025; 85379; 93010; 99217; 99219; 99225; G0378; J2060

== ENCOUNTER → 2022-01-14 15:03 | Emergency (ER) | payer MEDICARE, MEDICAID, SELFPAY | PROVIDERS: PCP Nurse Practitioner | DX: Z53.21 Procedure and treatment not carried out due to patient leaving prior to being seen by health care provider (principal) ==

== ENCOUNTER 2022-01-14 15:10 | Observation (INO) | payer MEDICARE, MEDICAID, SELFPAY ==
[2022-01-14] VITALS (34 sets, daily range): BP systolic 178–220; BP diastolic 71–170; PULSE 54–66; RESP 11–25; O2SAT 92–99
--- NOTE | 2022-01-14 15:00 | DI.CT_ITS ---
Exam(s) CT BRAIN NECK CTA EXAM: CT BRAIN NECK CTA CLINICAL HISTORY: AMS. TECHNIQUE: Imaging Protocol: Axial CT angiography was performed with multi-slice acquisition and mu lti-planar and/or 3D reconstructions. CONTRAST MATERIAL: Intravenous: Omnipaque 350 Contrast volume:structured data in ml COMPARISON: No exams were available for comparison FINDINGS: CTA Neck W: Aortic arch anatomy: The left vertebral artery is noted to arise is an independent vessel off the aor tic arch instead of arising in conventional fashion off the left subclavian artery. There does not a ppear to be significant stenosis at the origin of the great vessels off of the aortic arch. Anterior circulation: Both common carotid arteries ascend with normal luminal diameters. There is calcified plaque evident at both carotid bifurcations and proximal internal carotid arteries. On the right side there is freedom roximately 30 percent stenosis. On the left side approximately 50-60 percent stenosis at this level. Above this level the internal carotid arteries in the upper neck are nicely patent as well as in th e skull base-carotid canals. Posterior circulation: There is no significant stenosis at the origin of the right vertebral artery off of the right subclav fer nor of the left vertebral artery off the aortic arch. Both vertebral arteries ascend with patent lumens in the foramen transverse area with the right being dominant. Both contribute to the formati on of the basilar artery at the skull base although both vertebral arteries exhibit calcified plaque and mild stenosis at the skull base. CTA Brain W: Anterior circulation: Both internal carotid arteries are patent in the skull base-carotid canals as well as within the cave rnous sinuses and supraclinoid aspects of these vessels are patent. Both A1 segments are patent, lef t being dominant. Both anterior cerebral arteries are patent and there is no aneurysm at the level o f the anterior communicating artery. Both middle cerebral arteries are patent without significant stenosis, occlusion, nor aneurysms. Posterior circulation: The basilar artery is formed at the skull base by both vertebral arteries and ascends in the midline with 3 millimeter luminal diameter. Distally the basilar artery gives off thinly opacified superior cerebellar arteries and above this level terminates as patent bilateral posterior cerebral arteries. There are no posterior communicating arteries on either side of the [id number]. There is no aneurysm at the level of the tip of the basilar artery nor elsewhere in the [id number] lis. CT BRAIN: There is no evidence of intracranial hemorrhage, mass effect, or shift of midline structures. There are no extra-axial fluid collections. Ventricles are not enlarged or shifted. There are no ring enh ancing lesions in the brain and no abnormal meningeal enhancement. A small lacunar infarct in the medial right basal ganglia, age indeterminate. No territorial infarct ion noted. IMPRESSION: 1. There is calcified plaque at the level of both carotid bifurcations and proximal internal carotid arteries. Amount of stenosis on the right side is estimated 30 percent. Amount of stenosis on the l eft side estimated approximately 50 percent. Recommend follow-up Doppler imaging for velocity determ ination. 2. Both vertebral arteries are patent although exhibit some atherosclerotic plaque bilaterally at th e level the skull base just proximal to forming the basilar artery. Incidentally noted is independen t origin left vertebral artery off the aortic arch. 3. Patent intracranial arteries. No significant stenosis nor occlusions. No intracranial aneurysm s. Lacunar infarct in the right basal ganglia, age indeterminate. If clinically indicated follow-up MRI with diffusion imaging can be performed. RADIATION DOSE DELIVERED: 1,930.01mGy.cm Total DLP DATA REPOSITORY: All CT scans at this facility are submitted to the National Radiology Data Registry (NRDR) Dose Index Registry (DIR) with the [employer] (ACR). RADIATION OPTIMIZATION: All CT scans at this facility use at least one of these dose optimization te chniques: automated exposure control; mA and/or kV adjustment per patient size (includes targeted exa ms where dose is matched to clinical indication); or iterative reconstruction.
--- NOTE | 2022-01-14 15:15 | RT.EKG_ITS ---
APPROVED REPORT Exam: Resting ECG Reason for Exam: stroke Patient Location: E HR:61 bpm ECG Measurements Heart Rate 61 AXIS FL 171 P 71 QRSd 95 QRS 34 QT 438 T 61 QTc 442 Conclusion Sinus rhythm...normal P axis, V-rate 60- 99 Physician: no stemi
--- NOTE | 2022-01-14 15:17 | DI.RAD_ITS ---
Exam(s) XR CHEST 1V IN DI DEPT EXAM: XR CHEST 1V IN DI DEPT CLINICAL HISTORY: stroke like symptoms. TECHNIQUE: 2D digital imaging was performed. COMPARISON: No exams were available for comparison FINDINGS: Single AP portable view. Heart size is upper normal. The mediastinum is not widened. Right lung is clear. There is nodular infiltrate in the lower left lung field measuring approximatel y 4 x 2 cm. This is either in left lower lobe or lingular segment of the left lung, difficult to dif ferentiate without lateral film. There are no pleural effusions. No pulmonary edema. Findings in the right shoulder consistent with chronic rotator cuff tear. IMPRESSION: 4 x 2 cm left lung infiltrate as described above. Follow-up to resolution recommended DATA REPOSITORY: RADIATION DOSE DELIVERED: All CT scans at this facility use at least one of these dose optimization techniques: automated exposure control; mA and/or kV adjustment per patient size (includes targeted e xams where dose is matched to clinical indication); or iterative reconstruction.
[2022-01-14] MEDS: Normal Saline Flush 10 ML SYR IVP ×2 (15:30→23:27)
[2022-01-14] MEDS: Omnipaque 350 MG/ML 100 ML BTL IJ (15:32)
[2022-01-14 16:22] LABS: BE (Venous) 0 mmol/L (-2-3); HCO3 (Venous) 21 mmol/L (23-28); O2 Sat (Venous) 97 %; TCO2 (Venous) 19 mmol/L (24-29); pCO2 (Venous) 22 mmHg (41-51); pH (Venous) 7.59 (7.31-7.41); pO2 (Venous) 75 mmHg
[2022-01-14 16:24] LABS: Abs Immature Grans 0.07 10^3/uL (0.0-0.06); Absolute Basophil Count 0.04 10^3/uL (0.0-0.2); Absolute Eosinophil Count 0.04 10^3/uL (0.0-0.7); Absolute Lymphocyte Count 2.02 10^3/uL (1.2-3.4); Absolute Monocyte Count 0.75 10^3/uL (0.1-0.8); Absolute Neutrophil Count 7.49 10^3/uL (1.2-6.7); Basophils % 0.4; Eosinophils % 0.4; HGB 13.5 g/dL (11.2-15.7); Immature Grans % 0.7; Lymphocytes % 19.4; MCH 29.7 pg (27.0-33.0); MCHC 34.6 % (32.0-36.0); MCV 86 fL (80-95); Monocytes % 7.2; Neutrophils % 71.9; Platelet Count 250 10^3/uL (130-400); RBC 4.55 10^6/uL (3.93-5.22); RDW 14.6 % (11.7-14.6); RDW-SD 45.7 fL; WBC 10.41 10^3/uL (4.4-10.8)
[2022-01-14 16:31] LABS: Bilirubin Negative (Negative); Blood Negative (Negative); Clarity Clear (Clear); Glucose Negative (Negative); Ketones Negative (Negative); Leukocyte Esterase Negative (Negative); Nitrite Negative (Negative); Specific Gravity 1.015 (1.005-1.025); Urobilinogen 0.2 EU/dL (Up TO 0.2); pH 6.5 (5-8)
[2022-01-14 16:42] LABS: PTT Activated 23.8 sec (21.0-27.5); Prothrombin Time 10.1 sec (9.3-11.0)
[2022-01-14] MEDS: Labetalol 100 MG/20 ML VIAL 20 MG IVP (16:43)
[2022-01-14 16:49] LABS: ALT 12 U/L (14-59); AST 19 U/L (15-37); Albumin 3.3 g/dL (3.4-5.0); Alkaline Phosphatase 97 U/L (46-116); Anion Gap 14.1 mmol/L (3-11); BUN 16 mg/dL (7-18); Bilirubin, Total 0.6 mg/dL (0.2-1.0); CO2 21.9 mmol/L (21.0-32.0); CREATININE 1.2 mg/dL (0.55-1.02); Calcium 9.2 mg/dL (8.5-10.1); Chloride 98 mmol/L (98-107); Estimated GFR 44.36 (mL/min/1.73m2); Glucose 112 mg/dL (74-106); Magnesium 1.8 mg/dL (1.8-2.4); Potassium 3.7 mmol/L (3.5-5.1); Sodium 134 mmol/L (136-145); Total Protein 7.6 g/dL (6.4-8.2); Troponin I < 50 ng/L (<or=60)
[2022-01-14 17:02] LABS: *AMPHETAMINES SCREEN URINE Negative (Negative); *BARBITURATES SCREEN URINE Negative (Negative); *BENZODIAZEPINES SCREEN URINE Negative (Negative); Cannabinoids THC Negative (Negative); Cocaine Screen,Urine Negative (Negative); METHADONE URINE SCREEN Negative (Negative); OPIATES URINE SCREEN Negative (Negative)
[2022-01-14 17:03] LABS: Tricyclic Antidepressants Negative (Negative)
[2022-01-14] MEDS: MORPHine 4 MG/ML SYR (17:28)
--- NOTE | 2022-01-14 18:34 | NUR.NOTE ---
Pt. resting comfortably.Nursing Note:
--- NOTE | 2022-01-14 18:59 | W.PM.HP.N ---
Date of service: 01/14/22 Time of Service: 18:59 Assessment and Plan Assessment and plan (1) Stroke: Status: Chronic Assessment and plan: Presumably stroke. As above family wishes to pursue comfort measures only. Patient does appear comfortable at this time. Will use prn MS or Ativan. History of Present Illness History of Present Illness Chief Complaint: unresponsive Narrative: 86 female with h/o HTN, resides at [facility]isted [facility] home. At approximately 12:30 this afternoon was noted by staff to be off in some way, trouble moving and speaking. Brought to ER and was initially somewhat responsive but then became essentially unresponsive altogether. Work up of note for Head CT showing no acute infarct, mass effect or bleed (old lacune). Lab w/u essentially unremarkable, including CBC, CMP, U/A and UDS. CXR did show small infiltrate LLL. Initial BP up to 220/sys, given Labetalol IV. Appeared somewhat restless and given MS 4 IV. I was asked to evaluate for admission Family in room during visit. Advised it appears likely patient has had significant stroke. Family has previously expressed to ER that their wish is for care to be [id number] solely to patient comfort and this is reaffirmed to me. Review of Systems Narrative: unable due to mental state PFSH All Active Problems (Updated 01/14/22 @ 19:10 by Adam Huston MD) Stroke (Chronic) Social History Smoking risk assessment performed?: No Meds Allergies and Home Medications Home Medications Medication Instructions Recorded Confirmed Type guanfacine 1 mg tablet 1 mg PO QHS 01/14/22 01/14/22 History levothyroxine 25 mcg tablet 25 mcg PO DAILY 01/14/22 01/14/22 History metoprolol succinate 25 mg 25 mg PO DAILY 01/14/22 01/14/22 History tablet,extended release 24 hr Exam Narrative Exam Narrative: 187/74, 55, no temp recorded, 17, 97%. HEENT atraumatic; neck supple; lungs grossly cleaer; heart RRR; abdomen soft and NT; extremities w/o edema; neurono response to lightly noxious stimuli; pupils approx 3 mm/sluggish, no obviosu facial asymmetry, no motor activity noted in extremities (rhythmic tremor of lips, old per family) Results Labs Result diagrams: 01/14/22 16:15 01/14/22 16:15 Labs: Laboratory Results - last 24 hr 01/14/22 01/14/22 01/14/22 16:15 16:15 16:15 WBC 10.41 RBC 4.55 Hgb 13.5 Hct 39.0 MCV 86 MCH 29.7 MCHC 34.6 RDW 14.6 Plt Count 250 MPV 11.0 Immature Gran % 0.7 Neutrophils % 71.9 Lymphocytes % 19.4 Monocytes % 7.2 Eosinophils % 0.4 Basophils % 0.4 Nucleated RBC % 0.0 Absolute Neutrophils 7.49 H Absolute Lymphocytes 2.02 Absolute Monocytes 0.75 Absolute Eosinophils 0.04 Absolute Basophils 0.04 PT 10.1 INR 1.0 APTT 23.8 VBG pH VBG pCO2 VBG pO2 VBG HCO3 VBG Total CO2 VBG O2 Saturation VBG Base Excess Sodium 134 L Potassium 3.7 Chloride 98 Carbon Dioxide 21.9 Anion Gap 14.1 H BUN 16 Creatinine 1.2 H Est GFR (CKD-EPI 2020) 44.36 Glucose 112 H Calcium 9.2 Magnesium 1.8 Total Bilirubin 0.6 AST 19 ALT 12 L Alkaline Phosphatase 97 Troponin I < 50 Total Protein 7.6 Albumin 3.3 L Urine Color Urine Clarity Urine pH Ur Specific [place] Urine Protein Urine Ketones Urine Blood Urine Nitrite Urine Bilirubin Urine Urobilinogen Ur Leukocyte Esterase Urine Glucose Urine Opiates Screen Urine Methadone Screen Ur Barbiturates Screen Ur Tricyclics Screen Ur Amphetamines Screen U Benzodiazepines Scrn Urine Cocaine Screen Ur THC Screen 01/14/22 01/14/22 01/14/22 16:15 16:20 16:20 WBC RBC Hgb Hct MCV MCH MCHC RDW Plt Count MPV Immature Gran % Neutrophils % Lymphocytes % Monocytes % Eosinophils % Basophils % Nucleated RBC % Absolute Neutrophils Absolute Lymphocytes Absolute Monocytes Absolute Eosinophils Absolute Basophils PT INR APTT VBG pH 7.59 H VBG pCO2 22 L VBG pO2 75 VBG HCO3 21 L VBG Total CO2 19 L VBG O2 Saturation 97 VBG Base Excess 0 Sodium Potassium Chloride Carbon Dioxide Anion Gap BUN Creatinine Est GFR (CKD-EPI 2020) Glucose Calcium Magnesium Total Bilirubin AST ALT Alkaline Phosphatase Troponin I Total Protein Albumin Urine Color Yellow Urine Clarity Clear Urine pH 6.5 Ur Specific [place] 1.015 Urine Protein Negative Urine Ketones Negative Urine Blood Negative Urine Nitrite Negative Urine Bilirubin Negative Urine Urobilinogen 0.2 Ur Leukocyte Esterase Negative Urine Glucose Negative Urine Opiates Screen Negative Urine Methadone Screen Negative Ur Barbiturates Screen Negative Ur Tricyclics Screen Negative Ur Amphetamines Screen Negative U Benzodiazepines Scrn Negative Urine Cocaine Screen Negative Ur THC Screen Negative Last Vital Signs Pulse 56 L 01/14/22 17:31 Resp 17 01/14/22 17:50 BP 187/74 H 01/14/22 17:31 Pulse Ox 97 01/14/22 17:50
[2022-01-14 20:30] LABS: Source Nasal/Nares
[2022-01-14 21:16] LABS: COVID-19 PCR Negative (Negative)
[2022-01-14] MEDS: MORPHine 4 MG/ML SYR IVP (23:26)
[2022-01-15 07:38] VITALS: BP 158/68; PULSE 60; RESP 18; TEMP 36.1; O2SAT 96
[2022-01-15] MEDS: MORPHine 4 MG/ML SYR IVP ×2 (09:31→12:09)
[2022-01-15] MEDS: Normal Saline Flush 10 ML SYR IVP ×3 (09:32→19:29)
--- NOTE | 2022-01-15 09:55 | PDOC.CMIN ---
- If Service Date Differs Date of service: 01/15/22 Time of Service: 09:59 Care Management Initial Assess REASON FOR HOSPITALIZATION:: Stroke PAST MEDICAL HISTORY/PAST SURGICAL HISTORY:: All Active Problems (Updated 11/07/21 @ 11:18 by Mariela Stanley). Abnormal chest CT (Acute). Left lower lobe pulmonary nodule (Acute). PET 10/2021: highly metabolically active left lower mass, organizing pneumonia vs. bronchogenic neoplasm, Repeat 2-3 months. Dyspnea (Acute). Memory changes (Acute). Hypothyroid (Chronic). 03/26/21- TSH 2.95 UVM0 WNL. CKD (chronic kidney disease) stage 3, GFR 30-59 ml/min (Acute). Essential tremor (Acute). familial. Gait abnormality (Acute). uses a walker when out, balance and shuffling steps. Prediabetes (Acute). 03/26/21- A1c 5.9 UVM. Hypertension (Chronic). Anxiety (Chronic). Macular degeneration (Acute). Medical History . 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 B12 deficiency. Cerebrovascular accident. 06/12 CT @ [facility]: SMALL LACUNAR INFARCTS. Incidental findings. Pt. states she is unaware of this dx. Closed displaced fracture of greater tuberosity of left humerus (04/10/14). Closed fracture of head of left humerus (04/10/14). Dislocation of shoulder, anterior, left, closed (04/10/14). 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 Hallucinations. resolved. Hx of pancreatitis. Hypothyroidism. not taking meds at this time- pt refuses. Meningioma. cerebral, left frontal, small, stable since 2007-Pt. states she is unaware of this. Pneumonia (~07/20/18). Prerenal azotemia. Surgical History . Cholecystectomy (~1991). Fracture, Closed Treatment (04/10/14). LEFT SHOULDER FX AND DISLOCATED. Posterior subcapsular age-related cataract, right eye. Status post extracapsular cataract extraction of left eye PREVIOUS FUNCTIONAL STATUS/SOCIAL/FAMILY SUPPORTS:: Meredith lives alone in a senior housing apartment in [place]. She is and has two suportive adult children: daughter Yris who lives in [place], [place], and visits often, and son Diego who lives in [place]. Meredith states she is independent with her ADLs at baseline but has a friend (Nancy Chappell) who takes her to doctor's appointments and helps her with errands such as grocery shopping, etc. CURRENT FUNCTIONAL STATUS:: Meredith was lying in bed, unresponsive and appears comfortable during CM RN visit. Patients merry Arndt is at her bedside, and is tearful and questions next steps. CM reviewed process with Yris. Per Yris, she will contact [facility] in [place]. Arrangements will be discussed with family, as many live out of Town. In addition, [facility] services were offered and are accepted. 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 ADVANCE DIRECTIVES:: Living Will and DPOA on file; merry Arndt is appointed as DPOA. Has patient been provided with info about the portal/API?: Yes Did the patient sign up for the portal?: Yes (Prior to admission) CODE STATUS:: DNR/DNI INSURANCE COVERAGE / FINANCIAL ISSUES:: [facility] [employer] and Medicare. CURRENT HOME/COMMUNITY SERVICES/EQUIPMENT:: MOW, life alert, cane and walker. Friend Nancy Marinlain helps. PRIMARY CARE PHYSICIAN:: Eloina Brewer, ([facility]). POTENTIAL DISCHARGE NEEDS:: [facility]. PATIENT/FAMILY EDUCATION NEEDS:: Review of discharge instructions; discuss Ask Me Three. PLAN:: Meredith presented to the ER yesterday with stroke like sx, while at the ER she became unresponsive. Further medical evaluation was done, prognosis reviewed. Comfort measures are in place per family wishes. Pts daughter Yris will contact [facility] to let them know that their service for Meredith will be requested in the near future. CM will continue to support Meredith and her family during this difficult time.
[2022-01-15] MEDS: LORazepam 20 MG/10 ML VIAL IVP (14:34)
--- NOTE | 2022-01-15 15:49 | ED.GENADUL_ITS ---
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 Of critical note, during the patient's first hour in the emergency department we have been given the incorrect birthdate by EMS. This led to the creation of a new patient, and eventually it was clarified what her true birthday was and the patient's new chart and old charts were merged including the associated history brought on by it. That being said family states that for the past week the patient has had increasing struggles with good and bad days, with the bad days being confusion and mild weakness. Today this morning the patient had mild weakness and confusion that worsened throughout the day, and then at around noon the patient had a sudden significant decline, became unresponsive, and notably altered. She was brought to the ER by EMS. No family was initially at bedside. We are also unable to get in contact initially with the family or the primary care nurse practitioner whom she lives with. Patient is unable to give any additional historical components. Exam demonstrates profound neurodeficits, legs are essentially unresponsive, she does not open her eyes, she will chief payroll clerk your hands when asked to and is able to keep her arms up for a few seconds. No other response otherwise. Concern is for devastating stroke. Initially there were no records for the patient whatsoever, she was immediately rushed off to CAT scan and laboratory evaluation. Eventually we did find out who the patient was and we are able to get additional history, and about an hour or so after the patient arrived family was at bedside. The patient's living will made it clear that she did not want any heroic efforts being performed, however her DNR form was not signed. CT scan was negative for bleed, small lacunar infarct was noted. Patient was noted to be extremely hypertensive. This was corrected with labetalol x2 but her blood pressure would immediately rebound to hypertension again. Laboratory work-up stable. Gag reflex was intact. Once family was at bedside we had a long discussion about interventions, treatment, as well as tPA, and expected prognosis for the patient. After a long and thorough discussion and answering all questions with the family, the decision was made by family including Yris and Diego the daughter and son-in-law as well as the same name and Yris and Diego the son and [id number]. They felt that their mother would not want any significant heroic efforts, and that she would most like to be comfortable and to or continue with family and friends close by. The decision was made to stop all treatment and progress towards a palliative care and comfort measures perspective. No additional labetalol was then given. At family's request the patient was taken off the monitors. Patient will be admitted to the floor for transition to palliative care and then disposition with family eventually back to her care facility. Case was discussed with Dr. Huston the hospitalist. I have extensively reviewed the treatment plan with the patient. I have addressed all patient concerns at this time. I have also discussed the plan with the admitting physician and they agree with the current assessment and plan and have agreed to assume responsibility for the patient. All parties demonstrate verbal understanding and agreement with our assessment and plan at this time. The documentation in this chart was dictated using [employer] dictation software. Please excuse any dictation errors. HPI General Date/Time Provider Initiated Documentation: 01/14/22 15:12 . 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 Of critical note, during the patient's first hour in the emergency department we oneal ve been given the incorrect birthdate by EMS. This led to the creation of a new patient, and eventually it was clarified what her true birthday was and the patient's new chart and old charts were merged including the associated history brought on by it. That being said family states that for the past week the patient has had increasing struggles with good and bad days, with the bad days being confusion and mild weakness. Today this morning the patient had mild weakness and confusion that worsened throughout the day, and then at around noon the patient had a sudden significant decline, became unresponsive, and notably altered. She was brought to the ER by EMS. No family was initially at bedside. We are also unable to get in contact initially with the family or the primary care nurse practitioner whom she lives with. Patient is unable to give any additional historical components. Related Data Home Medications Medication Instructions Recorded Confirmed metoprolol succinate 25 mg 25 mg PO DAILY #90 tabs 12/07/20 11/21/21 tablet,extended release 24 hr levothyroxine 25 mcg tablet 25 mcg PO DAILY #90 tabs 07/19/21 11/21/21 guanfacine 1 mg tablet 1 mg PO QHS #30 tabs 11/21/21 11/21/21 quetiapine 25 mg tablet 25 mg PO QHS PRN Sundowning 12/26/21 lorazepam 0.5 mg tablet 0.5 mg PO DAILY PRN anxiety #10 12/31/21 tabs guanfacine 1 mg tablet 1 mg PO QHS 01/14/22 01/14/22 levothyroxine 25 mcg tablet 25 mcg PO DAILY 01/14/22 01/14/22 metoprolol succinate 25 mg 25 mg PO DAILY 01/14/22 01/14/22 tablet,extended release 24 hr Previous Rx's Medication Instructions Recorded metoprolol succinate 25 mg 25 mg PO DAILY #90 tabs 12/07/20 tablet,extended release 24 hr levothyroxine 25 mcg tablet 25 mcg PO DAILY #90 tabs 07/19/21 guanfacine 1 mg tablet 1 mg PO QHS #30 tabs 11/21/21 lorazepam 0.5 mg tablet 0.5 mg PO DAILY PRN anxiety #10 12/31/21 tabs Allergies Allergy/AdvReac Type Severity Reaction Status Date / Time amlodipine Allergy Severe Tongue Verified 01/15/22 07:53 swelling Sulfa (Sulfonamide Allergy Unknown rash, sick Verified 01/15/22 07:53 Antibiotics) to stomach General Stated Complaint: CVA/TIA JENNIFER: 1 Review of Systems All systems reviewed & are unremarkable except as noted in HPI and below PFSH All Active Problems (Updated 01/15/22 @ 16:02 by Gordy Metz DO) Stroke (Chronic) Abnormal chest CT (Acute) Left lower lobe pulmonary nodule (Acute) PET 10/2021: highly metabolically active left lower mass, organizing pneumonia vs. bronchogenic neoplasm, Repeat 2-3 months Dyspnea (Acute) Memory changes (Acute) Hypothyroid (Chronic) 03/26/21- TSH 2.95 UVM0 WNL CKD (chronic kidney disease) stage 3, GFR 30-59 ml/min (Acute) Essential tremor (Acute) familial Gait abnormality (Acute) uses a walker when out, balance and shuffling steps Prediabetes (Acute) 03/26/21- A1c 5.9 UVM Hypertension (Chronic) Anxiety (Chronic) Macular degeneration (Acute) Medical History Acute infective polyneuritis (~04/03/1966) B12 deficiency Cerebrovascular accident 06/12 CT @ [facility]: SMALL LACUNAR INFARCTS. Incidental findings. Pt. states she is unaware of this dx. 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 states she is unaware of this. Pneumonia (~07/20/18) Prerenal azotemia Surgical History Cholecystectomy (~1991) Fracture, Closed Treatment (04/10/14) LEFT SHOULDER FX AND DISLOCATED Posterior subcapsular age-related cataract, right eye Status post extracapsular cataract extraction of left eye Family History Mother , age 56 Cancer Father , age 76 Heart disease Sister No problems noted. Son No problems noted. Daughter No problems noted. Maternal Grandfather , age 78 No problems noted. Paternal Grandfather , age 62 Stroke Maternal Grandmother , age 89 - Accident No problems noted. Paternal Grandmother , age 68 No problems noted. Social History Smoking/Tobacco Use Status: Never Second Hand Exposure: Yes Smoking risk assessment performed?: Yes Alcohol Intake: never Drug use: Never Substance use type: does not use Counseling given: No Caregiver/Support person: No Household members: none Housing: house Communication Needs: Hard of Hearing Do you need help understanding health information?: Rarely Pets and animals: No Sexually active: No Do you think of yourself as: straight/heterosexual Current gender identity: female What is your relationship status?: How often do you talk on the phone with friends or family?: three or more times per week How often do you get together with friends or relatives?: three or more times per week How often do you attend restorationist or mormon services?: 4 or more times per year Do you belong to any clubs or organized social groups?: no Panel score (0-1 are the most socially isolated patients): 2 What type of physical activity do you participate in: walking and weight lifting Duration: 60-90 minutes/day Frequency: 1-2 times per week Anai/Sabianism: Pentecostalism Special anai needs: No Seatbelt use: always Helmet use: No Drive intox or ride w/intox show horse driver: No Do you feel safe at home: Yes Additional Social history: lives alone Exam Narrative Exam Narrative: 1.Const: Well-nourished, Well-developed, appearing stated age 2.Eyes: Pupils appear to be fixed bilaterally at around 3 to 4 mm. Minimally reactive. No conjunctival injection, and symmetrical lids. 3.ENT: Atraumatic external nose and ears. Moist MM. Neck: Symmetric, trachea midline, No thyromegaly. 4.CVS: +S1/S2, No murmurs or gallops. Peripheral pulses 2+ and equal in all extremities. Brisk capillary refill in all extremities. 5.RESP: Unlabored respiratory effort. Clear to auscultation bilaterally. No wheezes rales or rhonchi repetitive. Clenching/teeth clapping movement 6.GI: Soft, Nontender/Nondistended, No hepatosplenomegaly. No guarding or rebound. 7.MSK: Normocephalic/Atraumatic, Extremities w/o deformity 8.Skin: Warm, Dry. No rashes or lesions. 9.Neuro: NIH stroke score is around 33. Patient does not open eyes, she does not speak at all. She will chief payroll clerk your hands if asked to do so very lightly. She is able to somewhat hold up her arms bilaterally for a few seconds. Legs are completely unresponsive to stimulation. She does appear to wiggle her left great toe intermittently. Eyes are locked. No significant response to stimulation otherwise. Gag reflex in place 10.Psych: altered Course Vital Signs Vital signs: Vital Signs Respiratory Rate 20 01/14/22 16:11 Pulse Oximetry 98 01/14/22 16:11 Temperature 36.1 C L 01/15/22 07:38 Temperature Source Tympanic 01/15/22 07:38 Pulse 60 01/15/22 07:38 Pulse Rhythm Regular 01/14/22 20:28 Pulse 56 L 01/14/22 19:00 Respiratory Rate 18 01/15/22 07:38 Respiratory Effort Non-Labored 01/14/22 20:28 Respiratory Depth Normal 01/14/22 20:28 Respiratory Pattern Bradypnea 01/14/22 20:28 Blood Pressure 158/68 H 01/15/22 07:38 Blood Pressure Mean 104 01/14/22 18:31 Pulse Oximetry 96 01/15/22 07:38 Oxygen Delivery Method Room Air 01/15/22 07:38 Oxygen Flow Rate 0 01/15/22 07:38 Lab/Test Results Lab/Test Results: Laboratory Tests Range/Units 01/14/22 01/14/22 01/14/22 16:15 16:15 16:15 WBC (4.4-10.8) 10^3/uL 10.41 RBC (3.93-5.22) 10^6/uL 4.55 Hgb (11.2-15.7) g/dL 13.5 Hct (36.0-46.0) % 39.0 MCV (80-95) fL 86 MCH (27.0-33.0) pg 29.7 MCHC (32.0-36.0) % 34.6 RDW (11.7-14.6) % 14.6 Plt Count (130-400) 10^3/uL 250 MPV (8.0-11.0) fL 11.0 Immature Gran % 0.7 Neutrophils % 71.9 Lymphocytes % 19.4 Monocytes % 7.2 Eosinophils % 0.4 Basophils % 0.4 Nucleated RBC % (0.0-0.3) % 0.0 Absolute Neutrophils (1.2-6.7) 10^3/uL 7.49 H Absolute Lymphocytes (1.2-3.4) 10^3/uL 2.02 Absolute Monocytes (0.1-0.8) 10^3/uL 0.75 Absolute Eosinophils (0.0-0.7) 10^3/uL 0.04 Absolute Basophils (0.0-0.2) 10^3/uL 0.04 PT (9.3-11.0) sec 10.1 INR (0.9-1.1) 1.0 APTT (21.0-27.5) sec 23.8 VBG pH (7.31-7.41) VBG pCO2 (41-51) mmHg VBG pO2 mmHg VBG HCO3 (23-28) mmol/L VBG Total CO2 (24-29) mmol/L VBG O2 Saturation % VBG Base Excess (-2-3) mmol/L Sodium (136-145) mmol/L 134 L Potassium (3.5-5.1) mmol/L 3.7 Chloride (98-107) mmol/L 98 Carbon Dioxide (21.0-32.0) mmol/L 21.9 Anion Gap (3-11) mmol/L 14.1 H BUN (7-18) mg/dL 16 Creatinine (0.55-1.02) mg/dL 1.2 H Est GFR (CKD-EPI 2020) (mL/min/1.73m2) 44.36 Glucose (74-106) mg/dL 112 H Calcium (8.5-10.1) mg/dL 9.2 Magnesium (1.8-2.4) mg/dL 1.8 Total Bilirubin (0.2-1.0) mg/dL 0.6 AST (15-37) U/L 19 ALT (14-59) U/L 12 L Alkaline Phosphatase (46-116) U/L 97 Troponin I (<or=60) ng/L < 50 Total Protein (6.4-8.2) g/dL 7.6 Albumin (3.4-5.0) g/dL 3.3 L Urine Color (Yellow) Urine Clarity (Clear) Urine pH (5-8) Ur Specific [place] (1.005-1.025) Urine Protein (Negative) mg/dL Urine Ketones (Negative) mg/dL Urine Blood (Negative) Urine Nitrite (Negative) Urine Bilirubin (Negative) Urine Urobilinogen (Up TO 0.2) EU/dL Ur Leukocyte Esterase (Negative) Urine Glucose (Negative) mg/dL Urine Opiates Screen (Negative) Urine Methadone Screen (Negative) Ur Barbiturates Screen (Negative) Ur Tricyclics Screen (Negative) Ur Amphetamines Screen (Negative) U Benzodiazepines Scrn (Negative) Urine Cocaine Screen (Negative) Ur THC Screen (Negative) Range/Units 01/14/22 01/14/22 01/14/22 16:15 16:20 16:20 WBC (4.4-10.8) 10^3/uL RBC (3.93-5.22) 10^6/uL Hgb (11.2-15.7) g/dL Hct (36.0-46.0) % MCV (80-95) fL MCH (27.0-33.0) pg MCHC (32.0-36.0) % RDW (11.7-14.6) % Plt Count (130-400) 10^3/uL MPV (8.0-11.0) fL Immature Gran % Neutrophils % Lymphocytes % Monocytes % Eosinophils % Basophils % Nucleated RBC % (0.0-0.3) % Absolute Neutrophils (1.2-6.7) 10^3/uL Absolute Lymphocytes (1.2-3.4) 10^3/uL Absolute Monocytes (0.1-0.8) 10^3/uL Absolute Eosinophils (0.0-0.7) 10^3/uL Absolute Basophils (0.0-0.2) 10^3/uL PT (9.3-11.0) sec INR (0.9-1.1) APTT (21.0-27.5) sec VBG pH (7.31-7.41) 7.59 H VBG pCO2 (41-51) mmHg 22 L VBG pO2 mmHg 75 VBG HCO3 (23-28) mmol/L 21 L VBG Total CO2 (24-29) mmol/L 19 L VBG O2 Saturation % 97 VBG Base Excess (-2-3) mmol/L 0 Sodium (136-145) mmol/L Potassium (3.5-5.1) mmol/L Chloride (98-107) mmol/L Carbon Dioxide (21.0-32.0) mmol/L Anion Gap (3-11) mmol/L BUN (7-18) mg/dL Creatinine (0.55-1.02) mg/dL Est GFR (CKD-EPI 2021) (mL/min/1.73m2) Glucose (74-106) mg/dL Calcium (8.5-10.1) mg/dL Magnesium (1.8-2.4) mg/dL Total Bilirubin (0.2-1.0) mg/dL AST (15-37) U/L ALT (14-59) U/L Alkaline Phosphatase (46-116) U/L Troponin I (<or=60) ng/L Total Protein (6.4-8.2) g/dL Albumin (3.4-5.0) g/dL Urine Color (Yellow) Yellow Urine Clarity (Clear) Clear Urine pH (5-8) 6.5 Ur Specific [place] (1.005-1.025) 1.015 Urine Protein (Negative) mg/dL Negative Urine Ketones (Negative) mg/dL Negative Urine Blood (Negative) Negative Urine Nitrite (Negative) Negative Urine Bilirubin (Negative) Negative Urine Urobilinogen (Up TO 0.2) EU/dL 0.2 Ur Leukocyte Esterase (Negative) Negative Urine Glucose (Negative) mg/dL Negative Urine Opiates Screen (Negative) Negative Urine Methadone Screen (Negative) Negative Ur Barbiturates Screen (Negative) Negative Ur Tricyclics Screen (Negative) Negative Ur Amphetamines Screen (Negative) Negative U Benzodiazepines Scrn (Negative) Negative Urine Cocaine Screen (Negative) Negative Ur THC Screen (Negative) Negative Critical Care Time Critical Care Time Critical Care Time: Yes Total Critical Care Time: 30 Attestation: Upon my evaluation, this patient had a high probability of imminent or life- threatening deterioration, which required my direct attention, intervention, and personal management. I have personally provided 30 minutes of critical care time exclusive of time spent on separately billable procedures. Time includes review of laboratory data, radiology results, discussion with consultants, and monitoring for potential decompensation. Interventions were performed as documented.
--- NOTE | 2022-01-15 15:49 | CHAPLAIN ---
Meredith was admitted yesterday and is on comfort measures. Her daughter Yris was with her. Yris's brother had been her last week, but has returned to [place]. Yris explained that Meredith had been living for the past six weeks at a private retirement and previous to that in an apartment. Meredith also lived for stretches at a time with Yris and her in [place], [place]. Meredith's (at [facility]) 45 years ago. 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 Yris explained that Meredith was [employer] years ago, but has not attended episcopal in many years and is not connected to jered community at this point. Both Yris and her spent the night last night. A sister in law in [place] is also supportive. Yris feels that Meredith is comfortable, and she said nursing staff has been helpful and supportive. She understand Meredith's prognosis. Meredith will remain here for end of life care. I offered a prayer with Meredith and Yris.
--- NOTE | 2022-01-15 16:56 | W.PM.PROGNOT ---
Date of Service Date of service: 01/15/22 Time of Service: 16:56 Assessment and Plan Assessment and plan (1) Stroke: Assessment and plan: Continue comfort measures only. PRN medication for symptom management. family remains at bedside. will remain here for end of life care discussed with DR Garrett. Subjective Subjective Interval history since last seen: family remains at bedside, resting quietly Exam Const General: frail appearing Nutritional Appearance: average body habitus Orientation: obtunded Resp Effort & Inspection: normal respiratory effort Objective Last Vital Signs Temp 36.1 C L 01/15/22 07:38 Pulse 60 01/15/22 07:38 Resp 18 01/15/22 07:38 BP 158/68 H 01/15/22 07:38 Pulse Ox 96 01/15/22 07:38 Laboratory Results - last 24 hr 01/14/22 01/14/22 16:20 19:50 Urine Opiates Screen Negative Urine Methadone Screen Negative Ur Barbiturates Screen Negative Ur Tricyclics Screen Negative Ur Amphetamines Screen Negative U Benzodiazepines Scrn Negative Urine Cocaine Screen Negative Ur THC Screen Negative COVID-19 Source Nasal/Nares SARS-CoV-2 (PCR) Negative
[2022-01-15] MEDS: Ondansetron 4 MG/2 ML VIAL IVP (19:27)
[2022-01-15 20:39] VITALS: BP 112/69; PULSE 55; RESP 14; TEMP 36.6; O2SAT 97
[2022-01-15] MEDS: Normal Saline 1,000 ML 80 ML IV (21:19)
[2022-01-15 23:12] VITALS: BP 110/69; PULSE 78; RESP 20; TEMP 36.6; O2SAT 96
[2022-01-16 03:02] VITALS: BP 146/70; PULSE 61; RESP 16; TEMP 36; O2SAT 97
[2022-01-16] MEDS: Normal Saline Flush 10 ML SYR IVP ×2 (04:33→05:53)
[2022-01-16] MEDS: Ondansetron 4 MG/2 ML VIAL IVP ×2 (04:33→12:35)
[2022-01-16] MEDS: LORazepam 20 MG/10 ML VIAL IVP (05:53)
--- NOTE | 2022-01-16 09:27 | PDOC.CMPRO ---
- If Service Date Differs Date of service: 01/16/22 Time of Service: 09:27 Care Management Progress Note S/O: A: 86 year old female admitted to [facility] on 01/14/22 s/p Stroke. P:Meredith presented to the ER on 01/14/22 with stroke like sx, while at the ER she became unresponsive. Further medical evaluation was done, prognosis reviewed. Comfort measures are in place per family wishes. Pts daughter Yris will contact [facility] to let them know that their service for Meredith will be requested in the near future. will continue to support Meredith and her family during this difficult time.
[2022-01-16] MEDS: Normal Saline 1,000 ML 80 ML IV (09:58)
[2022-01-16 10:03] VITALS: BP 168/81; PULSE 59; RESP 17; TEMP 36.1; O2SAT 97
[2022-01-16 11:26] VITALS: BP 151/68; PULSE 52; RESP 17; TEMP 36.3; O2SAT 96
--- NOTE | 2022-01-16 15:25 | CMDISCH_ITS ---
- If Service Date Differs Date of service: 01/16/22 Time of Service: 15:25 LACE Index Scoring Tool - Questions: Length of Stay (in days): 2 Acuity (Admit via E.D.?): Yes Comorbidities: Cerebrovascular Disease, Any Tumor E.D. Visits: 2 - Answers: Total Score: 10 Risk of Readmission: High Risk Care Management Discharge Reason for Hospitalization: Stroke Discharge Plan: Meredith is discharged back to [facility] facility via private vehicle with plan to admit to Hospice services tomorrow. Hospitalist discussed plan with Yris Harper, home provider, CM and hospice provider prior to discharge. COLST form is completed prior to discharge. Patient/Family Education Needs: Review discharge instructions, limitations, medications and plan to follow up with Hospice and community providers. Review ask me three. Services Needed at Discharge: Home Health Care Services (Hospice notified: will likely admit to Hospice services tomorrow.), Transportation ([facility] transport was scheduled, CM cancelled per pt request. )
--- NOTE | 2022-01-16 15:28 | DSE_ITS ---
Date of service: 01/16/22 Time of Service: 15:55 DS: Diagnosis Discharge Diagnosis (1) Stroke: Status: Chronic Discharge Plan Disposition Patient Disposition: HOSPICE, HOME Condition: Deteriorating Discharge Details Reason For Visit: Stroke Admit Date/Time: 01/14/22 19:12 Admit Provider: Adma Huston Attending Provider: Adam Huston [facility] Hospital Course: This 86 year old female patient with h/o HTN, resides at Assisted Living home and was noted by staff to be off in some way, trouble moving and speaking. She presented to the [facility] emergency department and was initially somewhat responsive but then became essentially unresponsive. A head CT showed no acute infarct, mass effect or bleed (old lacune). Labs essentially unremarkable, including CBC, CMP, U/A and UDS. CXR did show small infiltrate LLL. Initial BP up to 220/sys, given Labetalol IV. She appeared somewhat restless and was given MS 4 IV. It appeared likely the patient had a significant stroke. Family had previously expressed their wish is for care to be directed solely to patient comfort.? She was put on observation status on the medical unit.? She was put on a morphine drip up to 6 mg/h.? Sometime during the night she woke up and was alert and somewhat oriented to place and person.? The morphine drip was discontinued.? She verbalized her wish to go home and be on hospice.? I spoke with her family and they agreed with this plan. She resides at [facility] in [place], I spoke with Omayra, the knocker out and she was in agreement with this plan.? I spoke with Macy Sousa APRN and she agreed to admit her to hospice.? She was discharged back to [facility] by private car, stable. Home Meds and New Rx's Prescriptions: No Action metoprolol succinate 25 mg tablet extended release 24 hr 25 mg PO DAILY Qty: 90 3RF guanfacine 1 mg tablet 1 mg PO QHS Qty: 30 1RF levothyroxine 25 mcg tablet 25 mcg PO DAILY Qty: 90 4RF quetiapine 25 mg tablet 25 mg PO QHS PRN (Reason: ) Rx Instructions: RX's by Alo Martinez [facility] Emergency Medicine/Urgent Care. Reported by Omayra at [facility] [phone] lorazepam 0.5 mg tablet 0.5 mg PO DAILY PRN (Reason: anxiety) Qty: 10 0RF acetaminophen 650 mg suppository 650 mg VT Q6H PRN (Reason: fever, mild pain) Qty: 6 0RF Rx Instructions: Hospice Patient hyoscyamine sulfate 0.125 mg tablet,disintegrating 0.125 - 0.25 mg PO Q4H PRN (Reason: secretions) Qty: 24 0RF Rx Instructions: Hospice Patient haloperidol lactate 2 mg/mL concentrate 1 mg PO Q6H PRN (Reason: agitation) Qty: 15 0RF Rx Instructions: Hospice Patient prochlorperazine maleate 10 mg tablet 10 mg PO Q6H PRN (Reason: nausea and vomiting) Qty: 6 0RF Rx Instructions: Hospice Patient lorazepam 1 mg tablet 1 mg PO Q4H PRN (Reason: anxiety, CALDERON or nausea) Qty: 6 5RF Rx Instructions: Hospice Patient morphine concentrate 100 mg/5 mL (20 mg/mL) solution 5 - 20 mg PO Q1-4H MDD 5 mL PRN (Reason: moderate to severe pain or shortness of breath) Qty: 30 0RF Rx Instructions: Hospice Patient bisacodyl [Dulcolax (bisacodyl)] 10 mg suppository 10 mg VT daily PRN (Reason: constipation) Qty: 2 0RF Rx Instructions: Hospice Patient Insert 1 supp VT Daily PRN constipation (no BM in 3 days) levothyroxine 25 mcg Tablet 25 mcg PO DAILY guanfacine 1 mg Tablet 1 mg PO QHS metoprolol succinate 25 mg Tablet Extended Release 24 Hr 25 mg PO DAILY Discharge Instructions Instructions: Hospice Care (GEN) Additional Instructions: Someone from [facility] will call you (or your caregiver) tomorrow and let you know when they are coming to do the admission to hospice services. Omayra or family member must slate picker comfort kit at [facility]. You can leave the patch on behind your ear for 3 days. Home Health can remove it for you when it's time to change it. Stand Alone Forms: Nursing Discharge Form Referrals: Macy Sousa NP [NURSE PRACTITIONER] - () Equipment/Supplies: Walker Activity:: Activity as Tolerated Activity:: Activity as Tolerated Equipment/Supplies:: Walker Diet:: As Tolerated Discharge Data Discharge Date/Time-TO BE ENTERED AT DEPARTURE: 01/16/22 16:44 DS: Summary Time Spent with Patient providing and/or coordinating discharge services: Greater than 30 minutes Status at Discharge Functional status at discharge: bed bound Overall status at discharge: patient is not back to baseline Mental Status: mental status grossly normal Speech and Movement: speech and movement normal Mood: congruent mood Affect: normal affect Exam Psych Mental Status: mental status grossly normal Speech and Movement: speech and movement normal Mood: congruent mood Affect: normal affect DS: Data Vitals/I&O Vitals and I&O: Vital Signs Temperature 36.3 C L 01/16/22 11:26 Temperature Source Tympanic 01/16/22 11:26 Pulse 52 L 01/16/22 11:26 Pulse Rhythm Regular 01/14/22 20:28 Pulse 56 L 01/14/22 19:00 Respiratory Rate 17 01/16/22 11:26 Respiratory Effort Non-Labored 01/14/22 20:28 Respiratory Depth Normal 01/14/22 20:28 Respiratory Pattern Bradypnea 01/14/22 20:28 Blood Pressure 151/68 H 01/16/22 11:26 Blood Pressure Mean 104 01/14/22 18:31 Pulse Oximetry 96 01/16/22 11:26 Oxygen Delivery Method Room Air 01/16/22 11:26 Oxygen Flow Rate 0 01/16/22 11:26 Pain Level 0 01/16/22 03:02 Comment 01/16/22 10:03 Intake & Output 01/15/22 01/16/22 01/16/22 23:59 11:59 23:59 Intake Total 50 / 50 1000 / 1000 Output Total 200 / 200 Balance -150 / -150 1000 / 1000 Intake: IV 1000 / 1000 Oral 50 / 50 Output: Urine 200 / 200 Other: Urine Color Light Luiza Yellow Urine Odor Strong Comment No void. pT dry at this time pT dry at this time Voiding Methods Bedside Commode Bedside Commode [facility] All Active Problems Stroke (Chronic) Abnormal chest CT (Acute) Left lower lobe pulmonary nodule (Acute) PET 10/2021: highly metabolically active left lower mass, organizing pneumonia vs. bronchogenic neoplasm, Repeat 2-3 months Dyspnea (Acute) Memory changes (Acute) Hypothyroid (Chronic) 03/26/21- TSH 2.95 U[facility]0 WNL CKD (chronic kidney disease) stage 3, GFR 30-59 ml/min (Acute) Essential tremor (Acute) familial Gait abnormality (Acute) uses a walker when out, balance and shuffling steps Prediabetes (Acute) 03/26/21- A1c 5.9 [facility] Hypertension (Chronic) Anxiety (Chronic) Macular degeneration (Acute) Medical History Acute infective polyneuritis (~04/03/1966) B12 deficiency Cerebrovascular accident 06/12 CT @ [facility]: SMALL LACUNAR INFARCTS. Incidental findings. Pt. states she is unaware of this dx. 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 states she is unaware of this. Pneumonia (~07/20/18) Prerenal azotemia Surgical History Cholecystectomy (~1991) Fracture, Closed Treatment (04/10/14) LEFT SHOULDER FX AND DISLOCATED Posterior subcapsular age-related cataract, right eye Status post extracapsular cataract extraction of left eye Family History Mother , age 56 Cancer Father , age 76 Heart disease Sister No problems noted. Son No problems noted. Daughter No problems noted. Maternal Grandfather , age 78 No problems noted. Paternal Grandfather , age 62 Stroke Maternal Grandmother , age 89 - Accident No problems noted. Paternal Grandmother , age 68 No problems noted. Social History Smoking/Tobacco Use Status: Never Second Hand Exposure: Yes Smoking risk assessment performed?: Yes Alcohol Intake: never Drug use: Never Substance use type: does not use Counseling given: No Caregiver/Support person: No Household members: none Housing: house Communication Needs: Hard of Hearing Do you need help understanding health information?: Rarely Pets and animals: No Sexually active: No Do you think of yourself as: straight/heterosexual Current gender identity: female What is your relationship status?: How often do you talk on the phone with friends or family?: three or more times per week How often do you get together with friends or relatives?: three or more times per week How often do you attend hindu or methodist services?: 4 or more times per year Do you belong to any clubs or organized social groups?: no Panel score (0-1 are the most socially isolated patients): 2 What type of physical activity do you participate in: walking and weight lifting Duration: 60-90 minutes/day Frequency: 1-2 times per week Anai/Oriental Orthodox: Confucianist Special anai needs: No Seatbelt use: always Helmet use: No Drive intox or ride w/intox vibratory pile driver: No Do you feel safe at home: Yes Additional Social history: lives alone
--- NOTE | 2022-01-16 15:37 | CHAPLAIN ---
When I visited last night around 5:45 pm, Meredith was awake and speaking with family members. She had been unresponsive earlier in the day and was on comfort measures. Meredith was confused about some details, but knew where she was and remembered the ambulance ride here and recognized her family members and spoke to others on the phone. I offered a prayer with Meredith and the family. This morning, Meredith's daughter Yris was with her, and Meredith was awake and talking with Yris. She was recalling events of last night and when she was picked up by ambulance at [facility] when shew as living. Not all the details were clear, but Meredith continues to have conversations and interact appropriately with family members.
[2022-01-16] MEDS: Ondansetron O.D.T. 4 MG TABEF PO (16:32)
[2022-01-16] MEDS: LORazepam 0.5 MG TAB PO (16:32)
== END 2022-01-16 16:44 ==
LOC: ER 19:51 → MS 20:13
PROVIDERS: Admitting Provider General Practice; Emergency Provider Student in an Organized Health Care Education/Training Program; PCP Nurse Practitioner; Visit Provider General Practice
DX: R41.82 Altered mental status, unspecified (principal); R91.1 Solitary pulmonary nodule; E03.9 Hypothyroidism, unspecified; N18.30 Chronic kidney disease, stage 3 unspecified; I12.9 Hypertensive chronic kidney disease with stage 1 through stage 4 chronic kidney disease, or unspecified chronic kidney disease; G25.0 Essential tremor; F41.9 Anxiety disorder, unspecified; H35.30 Unspecified macular degeneration; R26.9 Unspecified abnormalities of gait and mobility; Z51.5 Encounter for palliative care; E53.8 Deficiency of other specified B group vitamins; R29.733 NIHSS score 33; R73.03 Prediabetes; Z20.822 Contact with and (suspected) exposure to COVID-19; I65.23 Occlusion and stenosis of bilateral carotid arteries
CPT/HCPCS: 70496; 70498; 80053; 80307; 82805; 87635; 93005; 96365; 96366; 96374; 96375; 96376; 99291; 71045; 81003; 83735; 84484; 85025; 85610; 85730; 93010; 99217; 99219; 99222; 99225; G0378; J2270; J2405; J3490

== ENCOUNTER 2022-08-28 18:13 | Outpatient (REF) | payer MEDICARE, MEDICAID, SELFPAY ==
[2022-08-28 18:57] LABS: Abs Immature Grans 0.03 10^3/uL (0.0-0.06); Absolute Basophil Count 0.04 10^3/uL (0.0-0.2); Absolute Eosinophil Count 0.11 10^3/uL (0.0-0.7); Absolute Lymphocyte Count 1.56 10^3/uL (1.2-3.4); Absolute Monocyte Count 0.47 10^3/uL (0.1-0.8); Absolute Neutrophil Count 4.76 10^3/uL (1.2-6.7); Basophils % 0.6; Eosinophils % 1.6; HCT 42.9 % (36.0-46.0); HGB 13.6 g/dL (11.2-15.7); Immature Grans % 0.4; Lymphocytes % 22.4; MCH 28.5 pg (27.0-33.0); MCHC 31.7 % (32.0-36.0); MCV 90 fL (80-95); MPV 11.9 fL (8.0-11.0); Monocytes % 6.7; Neutrophils % 68.3; Platelet Count 173 10^3/uL (130-400); RBC 4.77 10^6/uL (3.93-5.22); RDW 14.5 % (11.7-14.6); RDW-SD 47.8 fL; WBC 6.97 10^3/uL (4.4-10.8)
[2022-08-28 19:04] LABS: Iron 46 ug/dL (50-170); Total Iron Binding Capacity 287 ug/dL (250-450); Transferrin Sat 16 % (15-50)
[2022-08-28 19:13] LABS: ALT 17 U/L (14-59); AST 22 U/L (15-37); Albumin 3.8 g/dL (3.4-5.0); Alkaline Phosphatase 141 U/L (46-116); Anion Gap 8.1 mmol/L (3-11); BUN 38 mg/dL (7-18); Bilirubin, Total 0.3 mg/dL (0.2-1.0); CO2 25.9 mmol/L (21.0-32.0); CREATININE 1.5 mg/dL (0.55-1.02); Calcium 9.4 mg/dL (8.5-10.1); Chloride 103 mmol/L (98-107); Estimated GFR 33.94 (mL/min/1.73m2); Glucose 158 mg/dL (74-106); NT-proBNP 364 pg/mL (<300); Potassium 5.3 mmol/L (3.5-5.1); Sodium 137 mmol/L (136-145); Total Protein 7.5 g/dL (6.4-8.2)
[2022-08-28 19:55] LABS: Folate 10.9 ng/mL (8.6-20.0); Vitamin B12 432 pg/mL (193-986)
[2022-08-28 23:08] LABS: Magnesium 2.1 mg/dL (1.8-2.4); TSH (W/Ref FT4) 3.29 uIU/mL (0.36-3.74)
[2022-08-28 23:21] LABS: Vitamin D 25 Total 28.5 ng/mL (30-100)
== END 2022-08-28 18:14 | disposition home or self-care (01) ==
LOC: LBN 18:13
PROVIDERS: PCP Nurse Practitioner Family; Visit Provider Nurse Practitioner Gerontology
DX: R68.89 Other general symptoms and signs (principal)
CPT/HCPCS: 80053; 82306; 82607; 82746; 83036; 83540; 83550; 83735; 83880; 84443; 85025

== ENCOUNTER 2022-11-03 14:11 | Inpatient (IN) | payer MEDICARE, MEDICAID, SELFPAY ==
[2022-11-03] VITALS (32 sets, daily range): BP systolic 98–141; BP diastolic 36–92; PULSE 73–130; RESP 14–32; TEMP 36.8–36.9; O2SAT 83–94
--- NOTE | 2022-11-03 15:00 | DI.RAD_ITS ---
Exam(s) XR CHEST 2V PA LATERAL EXAM: XR CHEST 2V PA LATERAL CLINICAL HISTORY: Dyspnea TECHNIQUE: 2D digital imaging was performed of the chest. Two images were obtained. PA and lateral views were obtained. COMPARISON: CR,XR XR CHEST 2V PA LATERAL from 09/22/2021 FINDINGS: MEDIASTINUM: Normal. HEART: Normal. PULMONARY VASCULATURE: Normal. LUNGS: There are bilateral patchy infiltrates in the lungs involving the lower lobes and the right mi d lung consistent with multifocal pneumonia. PLEURAL SPACE: There is blunting of both costophrenic angle suggesting bilateral pleural effusions. BONE:Within normal limits for the patient's age. OTHER FINDINGS:Normal. IMPRESSION: Multifocal pneumonia and bilateral pleural effusions. DATA REPOSITORY: RADIATION DOSE DELIVERED:
--- NOTE | 2022-11-03 15:26 | W.ED.GENAD ---
Discharge Plan Disposition Patient Disposition: Admit to [facility] Condition: Stable Discharge Details Clinical Impression: Pneumonia Admit Date/Time: 11/03/22 17:58 Admit Provider: Sravan Reyes Attending Provider: Sravan Reyes Primary Care Provider: Shawn Allen ED Provider: Fer Sierra Medical Decision Making Patient a resident at a nursing facility now with several days of worsening cough shortness of breath and confusion. Recently started on Lasix. Has a history of chronic kidney disease and heart failure. Limited history from the patient and the family. Normally patient ambulates with a walker but at this time is unable to walk. We will obtain basic labs including BNP and obtain a chest x-ray rule out pneumonia or other in etiology. Patient is not in respiratory distress at rest and is not hypoxic on room air. We will diurese if necessary. Medical Records Medical records reviewed: Yes I reviewed the patient's medical records. Imaging Data Radiologic Study: Attestation: I personally reviewed and interpreted this imaging study as follows: Imaging: X-Ray My impression: Bilateral pneumonia with pleural effusion Radiologist's impression: same as above Lab Data Lab results reviewed: Yes I reviewed the patient's lab results. Lab results narrative: Significantly elevated WBC. HPI General Date/Time Provider Initiated Documentation: 11/03/22 15:00. Limitations to Documentation: altered mental status (Confusion ). Information obtained by: family. HPI Narrative: Patient with a history of chronic kidney disease now presents to the emergency department with a worsening productive cough. Cough has been present for about 4 days. Patient resides in a half-way and was initiated on low-dose diuretic therapy of Lasix 20 mg daily. This is a new medication for her. When the patient did not improve and after discussions with family it was decided to transport the patient to the emergency department for further evaluation. Patient presented by private vehicle. Per the family who is with her she seems more confused than usual. History is limited as those family members do not check in with her daily and they are from out of town. She has a brother who she checks in with daily and the reports are from him that the patient is having worsening confusion and cough. Related Data Home Medications Medication Instructions Recorded Confirmed levothyroxine 25 mcg tablet 25 mcg PO DAILY #90 tabs 07/19/21 11/03/22 acetaminophen 650 mg rectal 650 mg ND Q6H PRN fever, mild pain 01/16/22 11/03/22 suppository #6 supp metoprolol succinate 25 mg 25 mg PO DAILY #90 tabs 02/18/22 11/03/22 tablet,extended release 24 hr guanfacine 1 mg tablet 1 mg PO QHS #30 tabs 04/24/22 11/03/22 sennosides 8.6 mg tablet (Senna 17.2 mg PO BID #1 tab 05/30/22 10/14/22 Lax) quetiapine 50 mg tablet 50 mg PO BID owning #180 tabs 07/15/22 11/03/22 nystatin 100,000 unit/gram topical 1 applic topical BID #30 grams 08/23/22 10/14/22 cream polyethylene glycol 3350 17 17 g PO DAILY 09/20/22 11/03/22 gram/dose oral powder (Miralax) furosemide 20 mg tablet 20 mg PO 1XD 11/03/22 11/03/22 Previous Rx's Medication Instructions Recorded levothyroxine 25 mcg tablet 25 mcg PO DAILY #90 tabs 07/19/21 acetaminophen 650 mg rectal 650 mg ND Q6H PRN fever, mild pain 01/16/22 suppository #6 supp metoprolol succinate 25 mg 25 mg PO DAILY #90 tabs 02/18/22 tablet,extended release 24 hr guanfacine 1 mg tablet 1 mg PO QHS #30 tabs 04/24/22 sennosides 8.6 mg tablet (Senna 17.2 mg PO BID #1 tab 05/30/22 Lax) quetiapine 50 mg tablet 50 mg PO BID own #180 tabs 07/15/22 nystatin 100,000 unit/gram topical 1 applic topical BID #30 grams 08/23/22 cream Allergies Allergy/AdvReac Type Severity Reaction Status Date / Time amlodipine Allergy Severe Tongue Verified 11/03/22 14:48 swelling Sulfa (Sulfonamide Allergy Unknown rash, sick Verified 11/03/22 14:48 Antibiotics) to stomach General Stated Complaint: RespSymp JENNIFER: 3 Review of Systems Unobtainable due to mental condition PFSH All Active Problems Pneumonia (Acute) Macular degeneration (Acute) Essential tremor (Acute) familial Gait abnormality (Acute) uses a walker when out, balance and shuffling steps Prediabetes (Acute) 03/26/21- A1c 5.9 [facility] Hypertension (Chronic) Anxiety (Chronic) CKD (chronic kidney disease) stage 3, GFR 30-59 ml/min (Acute) Hypothyroid (Chronic) 03/26/21- TSH 2.95 UVM0 WNL Memory changes (Acute) Dyspnea (Acute) Left lower lobe pulmonary nodule (Acute) PET 10/2021: highly metabolically active left lower mass, organizing pneumonia vs. bronchogenic neoplasm, Repeat 2-3 months Stroke (Chronic) Episode of unresponsiveness (Acute) Palliative care patient (Acute) Advanced care planning/counseling discussion (Acute) Onychogryphosis (Acute) Plantar wart, right foot (Acute) Yeast dermatitis (Acute) Medical History Abnormal chest CT Acute infective polyneuritis (~04/03/1966) B12 deficiency Cerebrovascular accident 06/12 CT @ [facility]: SMALL LACUNAR INFARCTS. Incidental findings. Pt. states she is unaware of this dx. 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 states she is unaware of this. Pneumonia (~07/20/18) Prerenal azotemia Surgical History Cholecystectomy (~1991) Fracture, Closed Treatment (04/10/14) LEFT SHOULDER FX AND DISLOCATED Posterior subcapsular age-related cataract, right eye Status post extracapsular cataract extraction of left eye Family History Mother , age 56 Cancer Father , age 76 Heart disease Sister No problems noted. Son No problems noted. Daughter No problems noted. Maternal Grandfather , age 78 No problems noted. Paternal Grandfather , age 62 Stroke Maternal Grandmother , age 89 - Accident No problems noted. Paternal Grandmother , age 68 No problems noted. Social History Smoking/Tobacco Use Status: Never Second Hand Exposure: Yes Smoking risk assessment performed?: Yes Alcohol Intake: never Drug use: Never Substance use type: does not use Counseling given: No Caregiver/Support person: Yes Household members: caregiver Housing: half-way Communication Needs: Hard of Hearing Do you need help understanding health information?: Always Pets and animals: No Sexually active: No Do you think of yourself as: straight/heterosexual Current gender identity: female What is your relationship status?: How often do you talk on the phone with friends or family?: three or more times per week How often do you get together with friends or relatives?: once per week How often do you attend buddhist or pentecostalism services?: 1-3 times per year Do you belong to any clubs or organized social groups?: no Panel score (0-1 are the most socially isolated patients): 1 What type of physical activity do you participate in: walking and weight lifting Duration: < 15 minutes/day Frequency: 1-2 times per week Anai/Christian: Yazidi Special anai needs: No Seatbelt use: always Helmet use: No Drive intox or ride w/intox food mobile driver: No Do you feel safe at home: Yes Do you feel safe in your relationship?: Yes Exam Narrative Exam Narrative: GENERAL APPEARANCE NAD, activity normal for age, well developed/ well nourished, no cyanosis, pallor, or diaphoresis. EYES lids/conjunctiva normal. EARS/NOSE/THROAT Mucous membranes moist, nares normal, lips/teeth normal uvula midline without oral pharyngeal erythema, exudate or swelling No lymphangitis/lymphedema. HEAD/NECK normocephalic atraumatic, no facial trauma, neck is supple. RESPIRATORY respiratory effort normal, speaks in full sentences, no tripod position, no accessory muscle use. Lungs with coarse rhonchi bilaterally in the lower lung meehan CARDIAC Regular rate and rhythm, no edema. ABDOMINAL Soft, ND/NT. No evidence of fluid wave. No pulsatile masses on exam, rebound tenderness, Gibson sign or pain over Mcburney's point. MUSCLES/EXTREMITIES No abnormal range of motion, no swelling. SKIN Warm, pink and dry. No rashes, dermatoses, petechiae or lesions. NEUROLOGICAL Speech is clear and appropriate. Normal level of consciousness. 5/5 strength in all extremities. PSYCH Normal mood and affect. Mild confusion with time and dates and events over the past 3 to 4 days Course Chest x-ray shows bilateral pneumonia, have initiated antibiotic therapy appropriate to the patient's status is at half-way patient. At this time she does not show signs of sepsis however she has a significantly elevated white blood cell count and is slightly tachycardic at a rate of 110. Consultations Consultation #1: Hospitalist for admission pending Time: 17:47 Consultation #2: ELIZA hospitalist: added labs, accepts admission , will enter orders. Vital Signs Vital signs: Vital Signs Temperature 36.8 C 11/03/22 14:16 Pulse 112 H 11/03/22 14:16 Respiratory Rate 22 11/03/22 14:16 Blood Pressure 141/86 H 11/03/22 14:16 Pulse Oximetry 94 11/03/22 14:16 Temperature 36.8 C 11/03/22 14:16 Temperature Source Tympanic 11/03/22 14:16 Pulse 112 H 11/03/22 14:16 Pulse 100 H 11/03/22 15:10 Respiratory Rate 22 11/03/22 14:16 Respiratory Effort Normal 11/03/22 14:42 Respiratory Depth Normal 11/03/22 14:42 Blood Pressure 141/86 H 11/03/22 14:16 Blood Pressure Position Sitting 11/03/22 14:16 Pulse Oximetry 94 11/03/22 14:16 Oxygen Delivery Method Room Air 11/03/22 14:16 Oxygen Flow Rate 0 11/03/22 14:16
[2022-11-03 15:34] LABS: MCH 28.8 pg (27.0-33.0); MCHC 33.3 % (32.0-36.0); MCV 87 fL (80-95); MPV 10.2 fL (8.0-11.0); Platelet Count 251 10^3/uL (130-400); RBC 4.51 10^6/uL (3.93-5.22); RDW 14.9 % (11.7-14.6); RDW-SD 47.7 fL; WBC 24.76 10^3/uL (4.4-10.8)
--- NOTE | 2022-11-03 16:01 | DI.VRAD_ITS ---
PROCEDURE INFORMATION: Exam: XR Chest Exam date and time: 11/03/2022 3:32 PM Age: 86 years old Clinical indication: Dyspnea TECHNIQUE: Imaging protocol: Radiologic exam of the chest. Views: 2 views. COMPARISON: CR XR CHEST 1V IN DI DEPT 04/12/2022 15:48 FINDINGS: Lungs: Bilateral patchy infiltrates involving the mid lung and lower lung meehan. Pleural spaces: Bilateral blunted costophrenic angles. Heart/Mediastinum: Stable cardiac silhouette. Vasculature: Atherosclerotic disease. Bones/joints: Multilevel degenerative changes of the spine. Degenerative changes of both shoulders. IMPRESSION: Bilateral pneumonia. Blunted costophrenic angles possibly representing pleural effusions. Dictated and Authenticated by: Idalia Yang MD. Ordering:DIONICIO Monroe MD
[2022-11-03 16:13] LABS: Absolute Monocyte Count 0.25 10^3/uL (0.1-0.8); Bands % 7; Diff Comment Manual Differential
[2022-11-03 16:14] LABS: ALT 37 U/L (14-59); AST 35 U/L (15-37); Alkaline Phosphatase 298 U/L (46-116); Anion Gap 9.3 mmol/L (3-11); BUN 45 mg/dL (7-18); Bilirubin, Total 0.7 mg/dL (0.2-1.0); CO2 29.7 mmol/L (21.0-32.0); CREATININE 1.5 mg/dL (0.55-1.02); Calcium 9.3 mg/dL (8.5-10.1); Chloride 97 mmol/L (98-107); Estimated GFR 33.94 (mL/min/1.73m2); Glucose 147 mg/dL (74-106); NT-proBNP 4758 pg/mL (<300); Potassium 3.1 mmol/L (3.5-5.1); Sodium 136 mmol/L (136-145); Total Protein 7.6 g/dL (6.4-8.2)
[2022-11-03 16:14] LABS: Absolute Lymphocyte Count 1.24 10^3/uL (1.2-3.4); Absolute Neutrophil Count 23.27 10^3/uL (1.2-6.7)
[2022-11-03] MEDS: Normal Saline 500 ML 1000 ML IV (16:47)
[2022-11-03] MEDS: AMPICILLIN/SULBACTAM 3 GM in Normal Saline 100 ML IVPB ×2 (16:48→22:35)
[2022-11-03] MEDS: AZITHROMYCIN 500 MG in Normal Saline 250 ML 250 MG IVPB (18:00)
[2022-11-03 18:10] LABS: Lactate 1.7 mmol/L (0.6-1.4)
--- NOTE | 2022-11-03 21:01 | W.PM.HP.N ---
Date of service: 11/03/22 Time of Service: 21:01 Assessment and Plan Assessment and plan (1) Pneumonia: Status: Acute Assessment and plan: I performed bedside POCUS study (but did not record), she has bilateral lower lobe consolidations and bilateral pleural effusions which are small, upper meehan show A line pattern. Given her leukocytosis, cough, and US findings, this is consistent w/ pneumonia rather than CHF. I also did subcostol view of her heart and IVC. Her IVC is very small and completely collapsible and her RV is not dilated. She seems to have good RV and LV squeeze in the subcostal view. I think that despite her elevated BNP she is not in acute CHF. She has no JVD and no significant pedal edema. I agree w/ choice of Unasyn and azithromycin. Legionella Ag and Strep Ag have been ordered as well as sputum (her gram stain looks more like oral adonis). Professional time spent interviewing and examining patient, discussion of goals of care with hospital team (care management, nursing and consulting professionals) was 60 minutes. (2) Elevated brain natriuretic peptide (BNP) level: Status: Acute Assessment and plan: I will get formal echo in the morning to evaluate her LV function but clinically she does not seem to be in acute CHF. (3) Chronic heart failure with preserved ejection fraction: Status: Chronic Assessment and plan: patient had an echo from 05/12/19 that demonstrated LVH w/ normal global LV systolic fxn, LVEF 70%, but w/ doppler evidence of increased left sided filling pressures, normal RV size and function w/ RVSP of 33 mm, mild A.S and mild M.R., I will get follow up echo since she has elevated BNP. (4) Left lower lobe pulmonary nodule: Status: Acute Assessment and plan: patient has a highly suspicious LLL lobulated and spiculated 3.[address] on [address] scan from [facility] from 12/17/21 this was a followup CT after intial PET/CT was done on 10/26/21 demonstrated 33 mm x 17 mm oblong FDG avid mass in the LLL and small round ground glass nodule in RUL that did not have avid uptake of FDG. Unclear from her chart what the expectations from the patient and her PCP were with regard to follow up workup or treatment if any. We should get further information from [facility] after the 05 of November holidays or try to get more info in the morning from [facility]. (5) Prediabetes: Status: Acute Assessment and plan: HbA1C was 6.0% on 08/28/22. I will monitor her glucose bid w/ fingerstick glucose but not treat unless her glucose is running over 180 consistently. (6) Hypertension: Status: Chronic Assessment and plan: continue toprol XL and guanfacine. although I do not understand why she has not been on an JO-ANN-I or an ARB. Apparently she has had rxn to amlodipine. Qualifiers: Hypertension type: essential hypertension Qualified Code(s): I10 - Essential (primary) hypertension (7) CKD (chronic kidney disease) stage 3, GFR 30-59 ml/min: Status: Acute Assessment and plan: she appears to have stable creatinine and BUN. I did hold her lasix d/t her renal disease but she may need her lasix to keep her out of CHF. Despite her BNP, I do not think that she clinically is hypervolemic. I will resume her lasix in the morning. (8) Hypothyroid: Status: Chronic Assessment and plan: continue her home dose of levothyroxine. Last TSH 3.29 on 08/28/22 (9) DVT prophylaxis: Status: Acute Assessment and plan: enoxaparin SC (10) Discharge planning issues: Status: Acute Assessment and plan: patient is DNR/DNI as per her prior wishes and as documented in the chart. She will return to [facility] when medical stable and able to switch to oral antibiotics. History of Present Illness History of Present Illness Chief Complaint: cough, dyspnea Narrative: 86-year-old female with history hypertension, prediabetes, macular degeneration, generalized anxiety disorder, essential tremor, hypothyroidism, dementia and lacunar strokes who is a resident in the assisted living portion of the [facility] has been ill since last Friday, 5 days ago, with chest congestion and a minimally productive cough. She was brought in here for further evaluation. On arrival her oxygen saturation was 94% on room air. Respirations were nonlabored at 22 breaths/min blood pressure is stable at 141/86 but she was tachycardic at 112 bpm. ED provider ordered routine labs including CBC, CMP, proBNP, blood lactate level, CXR. CXR demonstrated multifocal bilateral consoldiations, and and bilateral pleural effusions (L>R). Labs were remarkable for WBC 24,700 w/ left shift, no anemia, K 3.1, BUN 45, creatinine 1.5, glucose 147, alkaline phosphatase 298 w/ normal bilirubin and transaminases. Pro-BNP 4758, albumin 2.0. Patient was begun on Unasyn and azithromycin in the ED and the hospitalist service was called to admit her for treament of pneumonia. Review of Systems All systems reviewed & are unremarkable except as noted in HPI and below PFSH All Active Problems (Updated 11/04/22 @ 00:46 by Sravan Reyes MD) Chronic heart failure with preserved ejection fraction (Chronic) Discharge planning issues (Acute) DVT prophylaxis (Acute) Elevated brain natriuretic peptide (BNP) level (Acute) Pneumonia (Acute) Macular degeneration (Acute) Essential tremor (Acute) familial Gait abnormality (Acute) uses a walker when out, balance and shuffling steps Prediabetes (Acute) 03/26/21- A1c 5.9 [facility] Hypertension (Chronic) Anxiety (Chronic) CKD (chronic kidney disease) stage 3, GFR 30-59 ml/min (Acute) Hypothyroid (Chronic) 03/26/21- TSH 2.95 [facility]0 WNL Memory changes (Acute) Dyspnea (Acute) Left lower lobe pulmonary nodule (Acute) PET 10/2021: highly metabolically active left lower mass, organizing pneumonia vs. bronchogenic neoplasm, Repeat 2-3 months Stroke (Chronic) Episode of unresponsiveness (Acute) Palliative care patient (Acute) Advanced care planning/counseling discussion (Acute) Onychogryphosis (Acute) Plantar wart, right foot (Acute) Yeast dermatitis (Acute) Medical History Abnormal chest CT Acute infective polyneuritis (~04/03/1966) B12 deficiency Cerebrovascular accident 06/12 CT @ [facility]: SMALL LACUNAR INFARCTS. Incidental findings. Pt. states she is unaware of this dx. 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 states she is unaware of this. Pneumonia (~07/20/18) Prerenal azotemia Surgical History Cholecystectomy (~1991) Fracture, Closed Treatment (04/10/14) LEFT SHOULDER FX AND DISLOCATED Posterior subcapsular age-related cataract, right eye Status post extracapsular cataract extraction of left eye Family History Mother , age 56 Cancer Father , age 76 Heart disease Sister No problems noted. Son No problems noted. Daughter No problems noted. Maternal Grandfather , age 78 No problems noted. Paternal Grandfather , age 62 Stroke Maternal Grandmother , age 89 - Accident No problems noted. Paternal Grandmother , age 68 No problems noted. Social History Smoking/Tobacco Use Status: Never Second Hand Exposure: Yes Smoking risk assessment performed?: Yes Alcohol Intake: never Drug use: Never Substance use type: does not use Counseling given: No Caregiver/Support person: Yes Household members: caregiver Housing: fdc Communication Needs: Hard of Hearing Do you need help understanding health information?: Always Pets and animals: No Sexually active: No Do you think of yourself as: straight/heterosexual Current gender identity: female What is your relationship status?: How often do you talk on the phone with friends or family?: three or more times per week How often do you get together with friends or relatives?: once per week How often do you attend yazidi or amish services?: 1-3 times per year Do you belong to any clubs or organized social groups?: no Panel score (0-1 are the most socially isolated patients): 1 What type of physical activity do you participate in: walking and weight lifting Duration: < 15 minutes/day Frequency: 1-2 times per week Anai/Buddhist: Hoahaoism Special anai needs: No Seatbelt use: always Helmet use: No Drive intox or ride w/intox ups driver: No Do you feel safe at home: Yes Do you feel safe in your relationship?: Yes Meds Allergies and Home Medications Allergies Allergy/AdvReac Type Severity Reaction Status Date / Time amlodipine Allergy Severe Tongue Verified 11/03/22 14:48 swelling Sulfa (Sulfonamide Allergy Unknown rash, sick Verified 11/03/22 14:48 Antibiotics) to stomach Home Medications Medication Instructions Recorded Confirmed Type levothyroxine 25 mcg tablet 25 mcg PO DAILY #90 tabs 07/19/21 11/03/22 Rx acetaminophen 650 mg rectal 650 mg MI Q6H PRN fever, mild pain 01/16/22 11/03/22 Rx suppository #6 supp metoprolol succinate 25 mg 25 mg PO DAILY #90 tabs 02/18/22 11/03/22 Rx tablet,extended release 24 hr guanfacine 1 mg tablet 1 mg PO QHS #30 tabs 04/24/22 11/03/22 Rx sennosides 8.6 mg tablet (Senna 17.2 mg PO BID #1 tab 05/30/22 10/14/22 Rx Lax) quetiapine 50 mg tablet 50 mg PO BID #180 tabs 07/15/22 11/03/22 Rx nystatin 100,000 unit/gram topical 1 applic topical BID #30 grams 08/23/22 10/14/22 Rx cream polyethylene glycol 3350 17 17 g PO DAILY 09/20/22 11/03/22 History gram/dose oral powder (Miralax) furosemide 20 mg tablet 20 mg PO 1XD 11/03/22 11/03/22 History Exam Narrative Exam Narrative: Alert and oriented to person, month/season, not to year for me but per her nurse she did get the year correct earlier, she knows that she is in the hospital but could not name where HEENT: no facial asymmetry, normal speech, moist mucous membranes, she is hard of hearing and wears hearing aids but was able to understand me Neck: Supple, nontender, without thyromegaly or lymphadenopathy or JVD. No bruits Lungs: Clear to auscultation and percussion Heart: irregularly irregular, slightly tachycardic, I did not appreciate any murmur or rub Abdomen: Nondistended, normal bowel sounds, nontender to palpation or percussion, no organomegaly, no bruits, no palpable masses Genitalia and rectal exam: Deferred Breasts: Deferred Extremities: Normal range of motion with normal strength. No peripheral cyanosis . Normal pulses. Trace of pedal edema; no pretibial edema Neurologic: Cranial nerves II through XII grossly within normal limits. Normal strength and sensation over the face trunk and extremities. Skin: no open sores Results Imaging Chest x-ray: report reviewed and image reviewed Labs 11/03/22 15:22 11/03/22 15:48 Labs: Laboratory Results - last 24 hr 11/03/22 11/03/22 11/03/22 15:22 15:22 15:48 WBC 24.76 H RBC 4.51 Hgb 13.0 Hct 39.0 MCV 87 MCH 28.8 MCHC 33.3 RDW 14.9 H Plt Count 251 MPV 10.2 Immature Gran % 0.0 Neutrophils % 87.0 Band Neutrophils % 7 Lymphocytes % 5.0 Monocytes % 1.0 Eosinophils % 0.0 Basophils % 0.0 Nucleated RBC % 0.0 Absolute Neutrophils 23.27 H Absolute Lymphocytes 1.24 Absolute Monocytes 0.25 Absolute Eosinophils 0.00 Absolute Basophils 0.00 RBC Morphology See Below VBG Lactate Sodium Cancelled 136 Potassium Cancelled 3.1 L Chloride Cancelled 97 L Carbon Dioxide Cancelled 29.7 Anion Gap Cancelled 9.3 BUN Cancelled 45 H Creatinine Cancelled 1.5 H Est GFR (CKD-EPI 2020) Cancelled 33.94 Glucose Cancelled 147 H Calcium Cancelled 9.3 Total Bilirubin Cancelled 0.7 AST Cancelled 35 ALT Cancelled 37 Alkaline Phosphatase Cancelled 298 H NT-Pro-B Natriuret Pep Cancelled 4758 H Total Protein Cancelled 7.6 Albumin Cancelled 2.0 L 11/03/22 18:06 WBC RBC Hgb Hct MCV MCH MCHC RDW Plt Count MPV Immature Gran % Neutrophils % Band Neutrophils % Lymphocytes % Monocytes % Eosinophils % Basophils % Nucleated RBC % Absolute Neutrophils Absolute Lymphocytes Absolute Monocytes Absolute Eosinophils Absolute Basophils RBC Morphology VBG Lactate 1.7 H Sodium Potassium Chloride Carbon Dioxide Anion Gap BUN Creatinine Est GFR (CKD-EPI 2020) Glucose Calcium Total Bilirubin AST ALT Alkaline Phosphatase NT-Pro-B Natriuret Pep Total Protein Albumin Last Vital Signs Temp 36.9 C 11/03/22 20:16 Pulse 83 11/03/22 20:16 Resp 18 11/03/22 20:16 BP 98/64 L 11/03/22 20:07 Pulse Ox 92 11/03/22 20:16 Time Spent Time spent with Patient: 55-74 minutes Time was spent: preparing to see the patient(eg.review tests), ordering medications,tests, procedures, referring, communicating with other health lead caregiver (discussion w/ Dr. Sierra), indepentently interpreting results and care coordination
[2022-11-03] MEDS: Albuterol/Ipratropium 3 ML UPD VIAL UPD (22:34)
[2022-11-03] MEDS: Acetaminophen 325 MG TAB PO (22:34)
[2022-11-03] MEDS: QUEtiapine 50 MG TAB PO (22:35)
[2022-11-03] MEDS: guanFACINE 1 MG TAB PO (22:35)
[2022-11-03] MEDS: Enoxaparin 30 MG/0.3 ML SYR SC (22:35)
[2022-11-04] VITALS (64 sets, daily range): BP systolic 83–109; BP diastolic 38–73; PULSE 70–129; RESP 8–32; TEMP 36.4–38.1; O2SAT 91–99
--- NOTE | 2022-11-04 00:15 | RT.EKG_ITS ---
APPROVED REPORT Exam: Resting ECG Reason for Exam: dyspnea Patient Location: I HR:98 bpm ECG Measurements Heart Rate 98 AXIS ID [id number] P [id number] QRSd 97 QRS 30 QT 352 T 57 QTc 450 Conclusion Atrial fibrillation...V-rate 75-122, irreg A-activity Abnormal R-wave progression, early transition...QRS area>0 in V2
[2022-11-04] MEDS: Potassium Chloride 10 MEQ CAPCR 20 MEQ PO (00:27)
[2022-11-04] MEDS: Normal Saline Flush 10 ML SYR IVP (00:27)
[2022-11-04] MEDS: POTASSIUM CHLORIDE 10 MEQ/100 ML BAG 100 MEQ IVPB ×2 (00:27→01:41)
--- NOTE | 2022-11-04 03:10 | NUR.NOTE ---
patient made aware of low blood pressures and the need to have an indwelling catheter placed to monitor urine output. Patient consented to placement of indwelling catheter. when fluid bolus was started IV access was noted to be infiltrated. Patient declined to have additional IV placed and declined any further invasive procedures even if it were to prevent . Patient was very clear in her wishes. MD made aware. New orders for PO antibiotics were given in addition to encouraging PO fluids
[2022-11-04] MEDS: Levothyroxine 25 MCG TAB PO (05:14)
[2022-11-04 05:59] LABS: Bilirubin Negative (Negative); Blood Negative (Negative); Clarity Clear (Clear); Glucose Negative (Negative); Ketones Trace mg/dL (Negative); Leukocyte Esterase Negative (Negative); Nitrite Negative (Negative); Urobilinogen 0.2 mg/dL (Up to 0.2); pH 5.5 (5-8)
[2022-11-04 06:00] LABS: Bacteria Rare HPF (Negative); C & S Indicated? No; Casts Negative LPF (Negative); Crystals Negative HPF (Negative); Epithelial Cells Rare HPF (Negative); Mucus Negative (Negative); RBC Negative HPF (0-2); WBC Negative HPF (0-5)
[2022-11-04 06:29] LABS: Lactate 1.1 mmol/L (0.6-1.4)
[2022-11-04 06:30] LABS: Abs Immature Grans 1.28 10^3/uL (0.0-0.06); Absolute Eosinophil Count 0.02 10^3/uL (0.0-0.7); Absolute Monocyte Count 0.76 10^3/uL (0.1-0.8); Basophils % 0.1; Eosinophils % 0.1; HCT 33.5 % (36.0-46.0); HGB 11.1 g/dL (11.2-15.7); Immature Grans % 7.4; Lymphocytes % 7.5; MCH 28.8 pg (27.0-33.0); MCHC 33.1 % (32.0-36.0); MCV 87 fL (80-95); MPV 9.9 fL (8.0-11.0); Monocytes % 4.4; Neutrophils % 80.5; Platelet Count 257 10^3/uL (130-400); RBC 3.85 10^6/uL (3.93-5.22); RDW 15.2 % (11.7-14.6); RDW-SD 48.9 fL; WBC 17.34 10^3/uL (4.4-10.8)
[2022-11-04 06:55] LABS: Anion Gap 8.2 mmol/L (3-11); BUN 38 mg/dL (7-18); CO2 28.8 mmol/L (21.0-32.0); CREATININE 1.3 mg/dL (0.55-1.02); Calcium 8.7 mg/dL (8.5-10.1); Chloride 102 mmol/L (98-107); Glucose 118 mg/dL (74-106); Potassium 3.4 mmol/L (3.5-5.1); Sodium 139 mmol/L (136-145)
[2022-11-04 06:56] LABS: Magnesium 1.8 mg/dL (1.8-2.4)
[2022-11-04 07:52] LABS: Absolute Basophil Count 0.02 10^3/uL (0.0-0.2); Absolute Neutrophil Count 13.96 10^3/uL (1.2-6.7)
[2022-11-04] MEDS: Metoprolol CR 25 MG TABCR PO (08:30)
[2022-11-04] MEDS: Albuterol/Ipratropium 3 ML UPD VIAL UPD ×3 (08:39→20:36)
[2022-11-04] MEDS: Polyethylene Glycol 3350 17 GM PACKET PO (08:42)
[2022-11-04] MEDS: Azithromycin 250 MG TAB PO (08:43)
[2022-11-04] MEDS: Amoxicillin 875/Clav. 125 TAB PO (08:43)
[2022-11-04] MEDS: QUEtiapine 50 MG TAB PO ×2 (08:43→20:36)
[2022-11-04] MEDS: Senna TAB 2 TAB PO ×2 (08:43→20:36)
--- NOTE | 2022-11-04 09:00 | DI.US_ITS ---
APPROVED REPORT EXAM: Comprehensive 2D, Doppler, and color-flow Echocardiogram Patient Location: In-Patient Room/Bed: [id number] Head Shipper: Diane Vanegas RDCS (AE) Indications: HFPEF, Elevated BNP, Dyspnea, Evaluate LV and RV, HTN Other Information Study Quality: Fair. Technically limited study due to body habitus, inability to position patient exa m done supine bedside ICU. Conclusion Technically difficult study. The patient was in an irregular and tachycardic rhythm throughout with [id number] variation Left ventricle appears normal in size wall thickness and overall systolic function. No segmental wal l motion abnormalities are identified Normal right ventricular size and systolic function Left atrium is mildly dilated. Normal right atrial size Aortic valve is sclerotic without stenosis or regurgitation Normal mitral valve with trace regurgitation Normal tricuspid valve with mild regurgitation. Estimated right ventricular systolic pressure is 34 mmHg Wall motion Left Ventricle Technically limited parasternal imaging. The overall left ventricular systolic function appears brian l. There is normal LV segmental wall motion. There is no ventricular septal defect visualized. LVEF i s 55%. Right Ventricle The right ventricle is normal size. The right ventricular systolic function is normal. The RVSP is 34 .3mmHg. Atria Left atrium is mildly dilated The right atrium size is normal. The interatrial septum is intact with no evidence for an atrial septal defect. Aortic Valve Aortic valve is calcified. Number of aortic valve leaflets could not be assessed. No hemodynamically significant valvular aortic stenosis. No aortic regurgitation is present. Mitral Valve The mitral valve is normal in structure. No evidence of mitral valve stenosis. Trace mitral regurgita tion. Tricuspid Valve The tricuspid valve is normal in structure. There is no tricuspid valve stenosis. Mild tricuspid regu rgitation. Pulmonic Valve The pulmonary valve is normal in structure. There is no pulmonic valvular stenosis. There is no pulmo dominiqeu valvular regurgitation. Great Vessels The aortic root is normal in size. Ascending aorta is not well visualized. IVC is normal in size and collapses >50% with inspiration. Pericardium There is no pericardial effusion. 2D Dimensions Ao Root d 3.06 cm F: 2.7 - 3.3 LV Vol A2C d MOD 97.2 mL RA Area A4C 18.14 cm2 LV Vol A4C d MOD 65.1 mL RA Vol/ BSA A4C s A-L 29.7 mL/m2 LA vol/ BSA A2C s A-L 18.7 mL/m2 LVEF (Flores's) 54.72 % F: 54 - 74 LA vol/ BSA A4C s A-L 44.7 mL/m2 LV Volume 60.68 mL F: 46 - 106 LA Vol/ BSA Biplane s A-L 30.2 mL/m2 LV Volume Index 32.10 mL/m2 F: 29 - 61 LA Area A4C s MOD 24.00 cm2 LV Vol Biplane MOD 79.4 mL LA Area A2C s MOD 14.82 cm2 LV EF A4C MOD 55.2 % LV EF A2C MOD 55.2 % LV EF Biplane MOD 54.7 % SV 43.44 mL SV Index 22.97 mL/m2 M-Mode TAPSE 2.17 cm (M/F) >1.7 LV Diastology MV E' medial 0.121 (>0.07 m/s) MV E Vmax 0.98 (0.4-1.3 m/s) LV E/e MED 8.15 (<14) MV E' lateral 0.150 (>0.1 m/s) LV E/e LAT 6.55 (<14) MV E/E' medial 8.16 MV E/E' lateral 6.57 Aortic Valve LVOT Area 3.48 cm2 AoV Area Vmax 2.09 cm2 LVOT Vmax 1.16 m/s AoV Area/ BSA (Vmax) 1.10 cm2/m2 LVOT Mean Kalpesh. 0.76 m/s PAT Mean Kalpesh. 1.95 cm2 LVOT Peak Grad 5.4 mmHg PAT Mean Kalpesh. Index 1.03 cm2/m2 LVOT Mean Grad 2.7 mmHg LVOT VTI 0.198 m LVOT Diam s 2.10 cm AoV Vmax 1.93 m/s Velocity Ratio 0.60 AoV Mean Kalpesh. 1.36 m/s AoV Peak Grad 14.9 mmHg LVOT SV 68.99 mL AoV Mean Grad 8.3 mmHg AoV VTI 0.306 m AoV Area VTI 2.25 cm2 AoV Area/ BSA (VTI) 1.19 cm/m2 Mitral Valve MV DT 159 (160-240 msec) MV PHT 46 msec MV Area PHT 4.76 cm2 MV VTI 0.227 m MV Area VTI 3.04 (4.0-6.0 cm2) Pulmonary Valve PV Vmax 1.27 (0.5-1.5 m/s) RVOT Peak Gr. 5.18 mmHg PV Peak Grad 6.4 mmHg RVOT Mean Gr. 2.65 mmHg PV Mean Grad 3.3 mmHg RVOT VTI 0.196 m PV VTI 0.216 m RVOT Vmax 1.14 m/s Tricuspid Valve TR Peak Grad 31.3 mmHg TR Vmax 2.80 m/s RA Pressure 3.00 mmHg RVSP (TR) 34.3 mmHg
--- NOTE | 2022-11-04 10:04 | INITIAL_ITS ---
Date of service: 11/04/22 Time of Service: 10:04 Care Management Initial Assmt Initial Assessment REASON FOR HOSPITALIZATION:: pneumonia PREVIOUS FUNCTIONAL STATUS/SOCIAL/FAMILY SUPPORTS:: Meredith lives in the assisted living wing at the [facility]. She is and has two supportive adult children: daughter Yris who lives in [place], [place], and visits often, and son Diego who lives in [place]. Meredith states she is independent with her ADLs at baseline. She uses a walker for ambulatory assistance. CURRENT FUNCTIONAL STATUS:: Meredith was lying in bed when CM met with her. She had been dozing and spoke softly when answering questions. She may have been confused at the time because she informed CM that she has 3 children, not 2, and that they live in [facility]. Meredith stated that her a long time ago when he was only 46. 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 She shared that although it was hard work, she enjoyed it. ADVANCE DIRECTIVES:: DPOA Daughter Yris Has patient been provided with info about the portal/API?: Yes Did the patient sign up for the portal?: Yes CODE STATUS:: DNR/DNI INSURANCE COVERAGE / FINANCIAL ISSUES:: Medicare [employer] supplement CURRENT HOME/COMMUNITY SERVICES/EQUIPMENT:: lives in assisted living at the [facility] PRIMARY CARE PHYSICIAN:: Shawn Jacobson POTENTIAL DISCHARGE NEEDS:: follow up with PCP and plan of care PATIENT/FAMILY EDUCATION NEEDS:: Review of discharge instructions, limitations, follow up plan, discuss Ask Me Three TRANSPORTATION:: via RCT coordinated by CM PLAN:: Anticipate Meredith will discharge back to the [facility] when medically cleared. She will follow up with the facility providers and plan of care and transport with RCT coordinated by CM. CM will follow and continue to assess for discharge needs. PFSH All Active Problems (Updated 11/04/22 @ 15:16 by Natasha Ruiz MD) Chronic heart failure with preserved ejection fraction (Chronic) Discharge planning issues (Acute) DVT prophylaxis (Acute) Elevated brain natriuretic peptide (BNP) level (Acute) Pneumonia (Acute) Macular degeneration (Acute) Essential tremor (Acute) familial Gait abnormality (Acute) uses a walker when out, balance and shuffling steps Prediabetes (Chronic) 03/26/21- A1c 5.9 [facility] Hypertension (Chronic) Anxiety (Chronic) CKD (chronic kidney disease) stage 3, GFR 30-59 ml/min (Chronic) Hypothyroid (Chronic) 03/26/21- TSH 2.95 [facility]0 WNL Memory changes (Acute) Dyspnea (Acute) Left lower lobe pulmonary nodule (Acute) PET 10/2021: highly metabolically active left lower mass, organizing pneumonia vs. 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 Incidental findings. Pt. states she is unaware of this dx. 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 states she is unaware of this. Pneumonia (~07/20/18) Prerenal azotemia Surgical History Cholecystectomy (~1991) Fracture, Closed Treatment (04/10/14) LEFT SHOULDER FX AND DISLOCATED Posterior subcapsular age-related cataract, right eye Status post extracapsular cataract extraction of left eye Family History Mother , age 56 Cancer Father , age 76 Heart disease Sister No problems noted. Son No problems noted. Daughter No problems noted. Maternal Grandfather , age 78 No problems noted. Paternal Grandfather , age 62 Stroke Maternal Grandmother , age 89 - Accident No problems noted. Paternal Grandmother , age 68 No problems noted. Social History Smoking/Tobacco Use Status: Never Second Hand Exposure: Yes Smoking risk assessment performed?: Yes Alcohol Intake: never Drug use: Never Substance use type: does not use Counseling given: No Caregiver/Support person: Yes Household members: caregiver Housing: detention Communication Needs: Hard of Hearing Do you need help understanding health information?: Always Pets and animals: No Sexually active: No Do you think of yourself as: straight/heterosexual Current gender identity: female What is your relationship status?: How often do you talk on the phone with friends or family?: three or more times per week How often do you get together with friends or relatives?: once per week How often do you attend amish or restoration services?: 1-3 times per year Do you belong to any clubs or organized social groups?: no Panel score (0-1 are the most socially isolated patients): 1 What type of physical activity do you participate in: walking and weight lifting Duration: < 15 minutes/day Frequency: 1-2 times per week Anai/Jehovah'S Witness: Scientology Special anai needs: No Seatbelt use: always Helmet use: No Drive intox or ride w/intox spotter driver: No Do you feel safe at home: Yes Do you feel safe in your relationship?: Yes
--- NOTE | 2022-11-04 10:44 | PGE_ITS ---
Date of Service Date of service: 11/04/22 Time of Service: 10:44 Assessment and Plan Assessment and plan (1) Pneumonia: Status: Acute Assessment and plan: Present on admission. ?Aspiration. The patient is on oral azithromycin and augmentin while awaiting a midline. Continue scheduled + prn nebs. Speech therapy consulted. (2) Chronic heart failure with preserved ejection fraction: Status: Chronic Assessment and plan: Per official echo, LVEF appears to be 55%, RVSP 34.3 mmHg, LV and RV are of normal size. Continue to hold furosemide; I will also hold aldactone. (3) Left lower lobe pulmonary nodule: Status: Acute Assessment and plan: LLL mass which which lit up on PET in 10/24. Palliative care is consulted. It is unclear if this has had follow up. (4) Prediabetes: Status: Chronic Assessment and plan: check A1C. (5) Hypertension: Status: Chronic Assessment and plan: continue toprol XL, guanfacine with holding parameters, but hold spironolactone. Qualifiers: Hypertension type: essential hypertension Qualified Code(s): I10 - Essential (primary) hypertension (6) CKD (chronic kidney disease) stage 3, GFR 30-59 ml/min: Status: Chronic Assessment and plan: Cr Stable. Continue to monitor. (7) Hypothyroid: Status: Chronic Assessment and plan: Continue levothyroxine. (8) DVT prophylaxis: Status: Acute Assessment and plan: enoxaparin SC (9) Discharge planning issues: Status: Acute Assessment and plan: DNR/DNI C/s PT, palliative care, speech. Subjective Subjective Interval history since last seen: Pulled out IV overnight but agrees to have one now, while talking to me. Denies dizziness, CP, SOB, n/v. On RA. Exam Narrative Exam Narrative: General: Pleasant elderly female who sounds hoarse, A&Ox1-2, on RA, no dyspnea, tachypnea, cyanosis HEENT: EOMI, MMM Heart: irregularly irregular rhythm, no m/r/g Lungs: Diminished breath sounds anteriorly Abdomen: soft, nontender, nondistended Extremities: +1 edema R foot/ankle, no edmea LLE, unable to palpate pedal pulse RLE, +1 pedal pulse LLE, no c/c. Objective Last Vital Signs Temp 36.8 C 11/03/22 23:32 Pulse 87 11/04/22 08:45 Resp 22 11/04/22 08:45 BP 100/52 L 11/04/22 04:01 Pulse Ox 98 11/04/22 08:45 Laboratory Results - last 24 hr 11/03/22 11/03/22 11/03/22 15:22 15:22 15:48 WBC 24.76 H RBC 4.51 Hgb 13.0 Hct 39.0 MCV 87 MCH 28.8 MCHC 33.3 RDW 14.9 H Plt Count 251 MPV 10.2 Immature Gran % 0.0 Neutrophils % 87.0 Band Neutrophils % 7 Lymphocytes % 5.0 Monocytes % 1.0 Eosinophils % 0.0 Basophils % 0.0 Nucleated RBC % 0.0 Absolute Neutrophils 23.27 H Absolute Lymphocytes 1.24 Absolute Monocytes 0.25 Absolute Eosinophils 0.00 Absolute Basophils 0.00 RBC Morphology See Below VBG Lactate Sodium Cancelled 136 Potassium Cancelled 3.1 L Chloride Cancelled 97 L Carbon Dioxide Cancelled 29.7 Anion Gap Cancelled 9.3 BUN Cancelled 45 H Creatinine Cancelled 1.5 H Est GFR (CKD-EPI 2020) Cancelled 33.94 Glucose Cancelled 147 H Calcium Cancelled 9.3 Magnesium Total Bilirubin Cancelled 0.7 AST Cancelled 35 ALT Cancelled 37 Alkaline Phosphatase Cancelled 298 H NT-Pro-B Natriuret Pep Cancelled 4758 H Total Protein Cancelled 7.6 Albumin Cancelled 2.0 L Urine Color Urine Clarity Urine pH Ur Specific [place] Urine Protein Urine Ketones Urine Blood Urine Nitrite Urine Bilirubin Urine Urobilinogen Ur Leukocyte Esterase Urine RBC Urine WBC Ur Epithelial Cells Urine Crystals Urine Bacteria Urine Casts Urine Mucus Ur Culture Indicated? Urine Glucose 11/03/22 11/04/22 11/04/22 18:06 03:00 06:10 WBC RBC Hgb Hct MCV MCH MCHC RDW Plt Count MPV Immature Gran % Neutrophils % Band Neutrophils % Lymphocytes % Monocytes % Eosinophils % Basophils % Nucleated RBC % Absolute Neutrophils Absolute Lymphocytes Absolute Monocytes Absolute Eosinophils Absolute Basophils RBC Morphology VBG Lactate 1.7 H Sodium 139 Potassium 3.4 L Chloride 102 Carbon Dioxide 28.8 Anion Gap 8.2 BUN 38 H Creatinine 1.3 H Est GFR (CKD-EPI 2020) 40.30 Glucose 118 H Calcium 8.7 Magnesium Total Bilirubin AST ALT Alkaline Phosphatase NT-Pro-B Natriuret Pep Total Protein Albumin Urine Color Yellow Urine Clarity Clear Urine pH 5.5 Ur Specific [place] 1.010 Urine Protein 30 H Urine Ketones Trace H Urine Blood Negative Urine Nitrite Negative Urine Bilirubin Negative Urine Urobilinogen 0.2 Ur Leukocyte Esterase Negative Urine RBC Negative Urine WBC Negative Ur Epithelial Cells Rare Urine Crystals Negative Urine Bacteria Rare Urine Casts Negative Urine Mucus Negative Ur Culture Indicated? No Urine Glucose Negative 11/04/22 11/04/22 11/04/22 06:10 06:10 06:10 WBC 17.34 H RBC 3.85 L Hgb 11.1 L Hct 33.5 L MCV 87 MCH 28.8 MCHC 33.1 RDW 15.2 H Plt Count 257 MPV 9.9 Immature Gran % 7.4 Neutrophils % 80.5 Band Neutrophils % Lymphocytes % 7.5 Monocytes % 4.4 Eosinophils % 0.1 Basophils % 0.1 Nucleated RBC % 0.0 Absolute Neutrophils 13.96 H Absolute Lymphocytes 1.30 Absolute Monocytes 0.76 Absolute Eosinophils 0.02 Absolute Basophils 0.02 RBC Morphology VBG Lactate 1.1 Sodium Potassium Chloride Carbon Dioxide Anion Gap BUN Creatinine Est GFR (CKD-EPI 2020) Glucose Calcium Magnesium 1.8 Total Bilirubin AST ALT Alkaline Phosphatase NT-Pro-B Natriuret Pep Total Protein Albumin Urine Color Urine Clarity Urine pH Ur Specific [place] Urine Protein Urine Ketones Urine Blood Urine Nitrite Urine Bilirubin Urine Urobilinogen Ur Leukocyte Esterase Urine RBC Urine WBC Ur Epithelial Cells Urine Crystals Urine Bacteria Urine Casts Urine Mucus Ur Culture Indicated? Urine Glucose Time Spent with Patient Time Spent with Patient: 35-49 minutes Time was spent: preparing to see the patient(eg.review tests), obtaining and/or reviewing separately otained hiistory, ordering medications,tests, procedures, referring, communicating with other health healthcare economics consultant, indepentently interpreting results, counseling the patient and care coordination
[2022-11-04] MEDS: Potassium Chloride 20 MEQ TABCR 40 MEQ PO (11:07)
[2022-11-04] MEDS: Spironolactone 25 MG TAB 12.5 MG PO (11:09)
[2022-11-04] MEDS: Acetaminophen 325 MG TAB PO (13:34)
--- NOTE | 2022-11-04 16:11 | IN_ITS ---
Date of service: 11/04/22 Time of Service: 15:40 PT Notes Visit Reasons: Pneumonia Physical Therapy Inpatient Initial Evaluation Date: 11/04/2022 Referring Doctor: Natasha Ruiz MD PT Orders: PT CONSULT: Limited ability Precautions: Fall. Standard. Activity as tolerated. Patient Profile/Admitting Diagnosis: Meredith is an 86-year-old female admitted to the ED on 11/03/2022 due to worsening cough, shortness of breath, and generalized weakness. Patient is admitted for management of pneumonia, elevated BNP, CHF with preserved EF, CKD, L LL pulmonary nodule, hypothyroidism, HTN, prediabetes. PMHX: All Active Problems?(Updated 11/04/22 @ 00:46 by Sravan Reyes MD) Chronic heart failure with preserved ejection fraction (Chronic) Discharge planning issues (Acute) DVT prophylaxis (Acute) Elevated brain natriuretic peptide (BNP) level (Acute) Pneumonia (Acute) Macular degeneration (Acute) Essential tremor (Acute) familial Gait abnormality (Acute) uses a walker when out, balance and shuffling steps Prediabetes (Acute) 03/26/21- A1c 5.9 [facility] Hypertension (Chronic) Anxiety (Chronic) CKD (chronic kidney disease) stage 3, GFR 30-59 ml/min (Acute) Hypothyroid (Chronic) 03/26/21- TSH 2.95 UVM0 WNL Memory changes (Acute) Dyspnea (Acute) Left lower lobe pulmonary nodule (Acute) PET 10/2021: highly metabolically active left lower mass, organizing pneumonia vs. bronchogenic neoplasm, Repeat 2-3 months Stroke (Chronic) Episode of unresponsiveness (Acute) Palliative care patient (Acute) Advanced care planning/counseling discussion (Acute) Onychogryphosis (Acute) Plantar wart, right foot (Acute) Yeast dermatitis (Acute) Medical History? Abnormal chest CT Acute infective polyneuritis (~04/03/1966) B12 deficiency Cerebrovascular accident 06/12 CT @ [facility]: SMALL LACUNAR INFARCTS.? Incidental findings. Pt. states she is unaware of this dx. 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 states she is unaware of this. Pneumonia (~07/20/18) Prerenal azotemia Surgical History? Cholecystectomy (~1991) Fracture, Closed Treatment (04/10/14) LEFT SHOULDER FX AND DISLOCATED Posterior subcapsular age-related cataract, right eye Status post extracapsular cataract extraction of left eye Social History/Home Situation: Resident of the [facility]. Ambulatory with 4- wheeled walker at the [facility] wit assist of 1. Equipment Owned/DME: 4WW Subjective: Agreeable and pleasant. Denies denies headache, chest pain, headedness throughout session. Does not report pain with coughing. Objective: General Observation: Son and [id number] present throughout session. Telemetry monitoring in place. Saunders catheter in place. Strong coughs made when seated on bedside and after walking inside room. Wears hearing aids to B ears. Mental Status: Alert and oriented as to person and place. Able to pay attention, focus, and respond appropriately. Pain: Denies Vital Signs: Closely monitored via telemetry ROM: Right Upper Extremity: Shoulder Flexion lacks the last 25% of AROM. Shoulder abduction lacks the last 25% of AROM. Elbow flexion WFL. Wrist flexion WFL. Functional opening and closing of hand WFL. Left Upper Extremity: Shoulder Flexion allows up to 60 degrees actively. Shoulder abduction allows up to about 30 degrees. Elbow flexion WFL. Wrist flexion WFL. Functional opening and closing of hand WFL. Right Lower Extremity: Hip flexion WFL. Hip abduction WFL. Knee flexion WFL. Ankle dorsiflexion to neutral only. Ankle plantarflexion WFL. Left Lower Extremity: Hip flexion WFL. Hip abduction WFL. Knee flexion WFL. Ankle dorsiflexion to neutral only. Ankle plantarflexion WFL. Strength: Right Upper Extremity: Shoulder flexors 3-/5. Shoulder abductors 3-/5. Elbow flexors 4-/5. Elbow extensors 4-/5. Construction Framer strong. Left Upper Extremity: Shoulder flexors 2-/5. Shoulder abductors 2-/5. Elbow flexors 3+/5. Elbow extensors 3+/5. Construction Framer strong. Right Lower Extremity: Hip flexors 4-/5. Hip abductors 4-/5. Knee flexors 4-/5. Knee extensors 4-/5. Ankle dorsiflexors 4-/5. Ankle plantarflexors 4-/5. Left Lower Extremity: Hip flexors 4-/5. Hip abductors 4-/5. Knee flexors 4-/5. Knee extensors 4-/5. Ankle dorsiflexors 4-/5. Ankle plantarflexors 4-/5. Bed Mobility/Transfers: Rolling with minimal assist Supine to sit minimal assist with HOB at 45 degrees Sit to stand contact-guard assist with FWW Stand to sit contact-guard assist with FWW Bed to reclining chair minimal assist with FWW Gait: Instructed patient with level surface ambulation of 5-6 steps requiring minimal assist assist. Cristina decreased. Step height decreased. Step length decreased. Minimally short of breath. Balance: Static Sitting: Normal Dynamic Sitting: Good Static Standing: Fair Dynamic Standing: Fair most sit with child's Special Tests: Mobility Limitations Standardized Measure [facility] AM-PAC 6 clicks Basic Mobility Inpatient Short Form: Raw Score: 18 CMS Score: 47% deficit Informed Consent/Education: Patient was instructed in purpose of PT consult and plan of care. Agreeable to proceed with established PT POC to achieve personal goals. Assessment: Patient requires the assistance of one caregiver and the use of FWW for all mobility ADL performance. Strength of coughing improved with sitting at edge of bed and after transferring from bed to chair. Patient presents with clinical signs and symptoms consistent with current/admitting diagnoses that have resulted to mobility limitations, gait instability, generalized weakness, and overall ADL decline as demonstrated by the following impairment level findings: 1. Decreased strength to B UE/LE major muscle groups 2. Impaired standing balance 3. Impaired activity tolerance 4. Limitation of joint range of motion in B shoulders (chronic per son and [id number]. 5. Shortness of breath Impairments are contributing to the following functional limitations: 1. Decline in bed mobility skills 2. Decline in transfer skills 3. Difficulty with ambulation without assistive device and physical assistance 4. Increased completion time for mobility ADL performance 5. Increased risk for falls 6. Difficulty with managing steps alone safely Patient is assessed as a [id number] moderate complexity based on the following: History: 86-year-old female with past medical history as indicated above Examination: Demonstrable impairment in strength, balance, and mobility level with underlying impairments and functional limitations as exhibited above as well as deficit score of 47% utilizing the [facility] Mobility Inpatient Short Form Presentation: Evolving Decision Makin moderate complexity Goals: Goals X1 week 1. Supine-Sit independent 2. Sit-Supine independent 3. Sit-Stand independent 4. Stand-Sit independent with FWW 5. Bed-Chair independent with FWW 6. Chair-Bed independent with FWW 7. Independent gait on level surface with use of FWW for at least 100 feet wi thout report of pain nor dyspnea 8. Fair static and dynamic standing balance/tolerance Plan of Care/Treatment Plan: 1-2x/day, 7 days/week x 1 week. Plan of care has been reviewed with the NUCLEAR POWER PLANT ENGINEER providing the service under Physical Therapy direction. Initiate Physical Therapy intervention for pain management as needed, strengthening, bed mobility, transfers, gait, stairs, balance training, and use of assistive device. DISCHARGE RECOMMENDATIONS: [] Home with no services [] [] Home with services [specify] [] Home with outpatient PT [] [] SNF for continued rehabilitation [] [] Nurse Midwife/Clinical Instructor Care [] [] SNF versus LTC based on ability to participate and progress [] [X] Return to SNF when medically cleared by hospitalist. Continue sub acute rehab at SNF as tolerated. TREATMENT CODE/TIME: 46450 x 29 beginning at 15:40 PM. Thank you for the opportunity to participate in the care of this patient. Jeanette Sevilla PT, DPT, CLT [facility] [place], [place]
--- NOTE | 2022-11-04 17:07 | STREC_ITS ---
Date of service: 11/04/22 Time of Service: 17:07 Speech Therapy Recommendations Report ST Recommendations: BUSINESS COMPUTERS TEACHER Communication/Non-Treatment Note BUSINESS COMPUTERS TEACHER attempting to contact patient at 12:15 this date during lunch, but patient had already finished her meal. I am about to explode if I eat anything more. Returning in late afternoon to observe PO trials with a snack but patient was in process of getting a line placed. BUSINESS COMPUTERS TEACHER unable to complete evaluation before shift end. Per nursing, patient presenting with some coughing with thin liquids. She is also presenting with difficulty clearing her secretions and requiring frequent suction and oral care. She also presents at this time with mandibular tremor. Current diet is soft/bite size/thin. Nursing feels that she is tolerating solids as ordered quite well at this time, more concern for coughing with liquid, however, nursing also states that she is admittedly coughing quite a bit at baseline and this is largely undifferentiated from coughing with liquids. PT also noted she was able to get patient up and walking earlier this date, and that she was coughing throughout this visit as well. HPI:?86-year-old female, not known to BUSINESS COMPUTERS TEACHER service,? residing at the [facility], with history hypertension, prediabetes, macular degeneration, generalized anxiety disorder, essential tremor, hypothyroidism, Lung nodule, dementia and lacunar strokes. She presented with 5 day hx of chest congestion and a minimally productive cough.? Admitted for treament of pneumonia. Noting on recent palliative visit some ?oral dyskenesia with concern for tremor vs TD, with consideration of reduction of quetiapine meds being given for memory/sundowning given risks. Precautions:?DNR/DNI, Standard, Pending PT evaluation PFSH All Active Problems?(Updated 11/04/22 @ 00:46 by Sravan Reyes MD) Chronic heart failure with preserved ejection fraction (Chronic) Discharge planning issues (Acute) DVT prophylaxis (Acute) Elevated brain natriuretic peptide (BNP) level (Acute) Pneumonia (Acute) Macular degeneration (Acute) Essential tremor (Acute) familialGait abnormality (Acute) uses a walker when out, balance and shuffling stepsPrediabetes (Acute) 03/26/21- A1c 5.9 UVMHypertension (Chronic) Anxiety (Chronic) CKD (chronic kidney disease) stage 3, GFR 30-59 ml/min (Acute) Hypothyroid (Chronic) 03/26/21- TSH 2.95 UVM0 WNLMemory changes (Acute) Dyspnea (Acute) Left lower lobe pulmonary nodule (Acute) PET 10/2021: highly metabolically active left lower mass, organizing pneumonia vs. bronchogenic neoplasm, Repeat 2-3 monthsStroke (Chronic) Episode of unresponsiveness (Acute) Palliative care patient (Acute) Advanced care planning/counseling discussion (Acute) Onychogryphosis (Acute) Plantar wart, right foot (Acute) Yeast dermatitis (Acute) Medical History? 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 Incidental findings. Pt. states she is unaware of this dx.Closed displaced fracture of greater tuberosity of left humerus (04/10/14) Closed fracture of head of left humerus (04/10/14) Dislocation of shoulder, anterior, left, closed (04/10/14) Guillain Ruiz? syndrome age ~30sHallucinations resolvedHx of pancreatitis Hypothyroidism not taking meds at this time- pt refusesMeningioma cerebral, left frontal, small, stable since 2007-Pt. states she is unaware of this.Pneumonia (~07/20/18) Prerenal azotemia Surgical History? Cholecystectomy (~1991) Fracture, Closed Treatment (04/10/14) LEFT SHOULDER FX AND DISLOCATEDPosterior subcapsular age-related cataract, right eye Status post extracapsular cataract extraction of left eye RECOMMENDATIONS: In absence of Clinical Swallow Evaluation, but based on provider report and chart review, recommend to maintain current diet, with the below strict aspiration precautions in place. If despite these strategies, concern remains high for aspiration with thin liquids, recommend to downgrade to Mildly Thick Liquids during meals, with thin liquids OK between meals if strict oral care is provided and upright posture, small sips maintained. Diet Texture Modification(s): IDDSI Level(s) SOLIDS 6-Soft & Bite-Sized Solids LIQUIDS 0-Thin Liquids Medication Intake: Whole, one at a time with 0-Thin Liquids or tsp 4-Puree as tolerated Alter medications only as advised by MD or Pharmacist RISK MANAGEMENT: HOB upright as tolerated; upright for all PO intake. Encourage physical mobility as tolerated. Oral hygiene q4h/every 4 hours & before/after PO intake, using friction with toothbrush on all oral structures as tolerated, suction PRN Level of Assistance/Supervision: 1:1 distant vs close supervision for all PO intake PO intake only when awake/alert? Strategies/Adaptations/Assistive Equipment: Reduce auditory and/or visual distractions when eating Provide verbal and/or visual cues to use recommended strategies Small sips Slow rate of intake Posture/Positioning Needs: Maintain upright position at least 30 minutes after meals, Avoid meals/snacks 2- 3 hours prior to reclining/sleeping, Sleep with head of bed elevated to reduce likelihood of nocturnal reflux Coding
[2022-11-04] MEDS: Enoxaparin 40 MG/0.4 ML SYR SC (20:36)
[2022-11-04] MEDS: Magnesium Chloride 64 MG TABCR PO (20:36)
[2022-11-04] MEDS: guanFACINE 1 MG TAB PO (21:28)
[2022-11-04 22:31] LABS: Legionella Ag Detection Urine Negative (Negative)
[2022-11-05] VITALS (38 sets, daily range): BP systolic 101–121; BP diastolic 56–71; PULSE 76–142; RESP 1–38; TEMP 36.9–37.6; O2SAT 90–96
[2022-11-05] MEDS: AMPICILLIN/SULBACTAM 3 GM in Normal Saline 100 ML IVPB ×4 (00:38→16:55)
[2022-11-05] MEDS: Levothyroxine 25 MCG TAB PO (06:19)
[2022-11-05] MEDS: Albuterol/Ipratropium 3 ML UPD VIAL UPD (07:36)
[2022-11-05 07:49] LABS: Abs Immature Grans 3.51 10^3/uL (0.0-0.06); HCT 34.5 % (36.0-46.0); HGB 11.2 g/dL (11.2-15.7); MCH 28.6 pg (27.0-33.0); MCHC 32.5 % (32.0-36.0); MCV 88 fL (80-95); MPV 10.1 fL (8.0-11.0); Platelet Count 290 10^3/uL (130-400); RBC 3.92 10^6/uL (3.93-5.22); RDW 15.5 % (11.7-14.6); WBC 17.08 10^3/uL (4.4-10.8)
[2022-11-05 08:07] LABS: Anion Gap 8.8 mmol/L (3-11); BUN 31 mg/dL (7-18); CO2 28.2 mmol/L (21.0-32.0); CREATININE 1.3 mg/dL (0.55-1.02); Calcium 8.6 mg/dL (8.5-10.1); Chloride 103 mmol/L (98-107); Glucose 155 mg/dL (74-106); Magnesium 1.8 mg/dL (1.8-2.4); Potassium 3.1 mmol/L (3.5-5.1); Sodium 140 mmol/L (136-145)
[2022-11-05 08:25] LABS: Absolute Basophil Count 0.17 10^3/uL (0.0-0.2); Absolute Lymphocyte Count 1.02 10^3/uL (1.2-3.4); Absolute Monocyte Count 0.51 10^3/uL (0.1-0.8); Absolute Neutrophil Count 13.15 10^3/uL (1.2-6.7); Bands % 4; Diff Comment Manual Differential; Metamyelocytes % 5; Myelocytes % 8; RBC Morphology Normal
[2022-11-05 09:03] LABS: Hemoglobin A1C 5.7 % (<5.7)
[2022-11-05] MEDS: Polyethylene Glycol 3350 17 GM PACKET PO (09:49)
[2022-11-05] MEDS: Potassium Chloride 20 MEQ TABCR 40 MEQ PO (09:50)
[2022-11-05] MEDS: Spironolactone 25 MG TAB 12.5 MG PO (09:50)
[2022-11-05] MEDS: Magnesium Chloride 64 MG TABCR PO ×2 (09:50→20:52)
[2022-11-05] MEDS: QUEtiapine 50 MG TAB PO ×2 (09:51→20:53)
[2022-11-05] MEDS: Senna TAB 2 TAB PO ×2 (09:51→20:52)
[2022-11-05] MEDS: Metoprolol 12.5 MG TAB PO ×3 (09:51→20:52)
[2022-11-05] MEDS: guaiFENesin 600 MG TABCR PO ×2 (09:52→20:53)
[2022-11-05] MEDS: AZITHROMYCIN 250 MG in Normal Saline 250 ML IVPB (11:30)
[2022-11-05] MEDS: Normal Saline 500 ML 30 ML IV (11:30)
--- NOTE | 2022-11-05 11:50 | W.PM.PROGNOT ---
Date of Service Date of service: 11/05/22 Time of Service: 09:20 Assessment and Plan Assessment and plan (1) Pneumonia: Status: Acute Assessment and plan: Present on admission. ?Aspiration. Resume IV abx now that has a midline. Speech therapy recommends soft/bite-sized foods and thin liquids. (2) Chronic heart failure with preserved ejection fraction: Status: Chronic Assessment and plan: Per official echo, LVEF appears to be 55%, RVSP 34.3 mmHg, LV and RV are of normal size. Continue to hold furosemide; I will also hold aldactone. (3) Left lower lobe pulmonary nodule: Status: Acute Assessment and plan: LLL mass which which lit up on PET in 10/24. Palliative care is consulted. It is unclear if this has had follow up. (4) Prediabetes: Status: Chronic Assessment and plan: A1C of 5.7 (5) Hypertension: Status: Chronic Assessment and plan: continue toprol XL, guanfacine with holding parameters, but hold spironolactone. Qualifiers: Hypertension type: essential hypertension Qualified Code(s): I10 - Essential (primary) hypertension (6) CKD (chronic kidney disease) stage 3, GFR 30-59 ml/min: Status: Chronic Assessment and plan: Cr Stable. Continue to monitor. (7) Hypothyroid: Status: Chronic Assessment and plan: Continue levothyroxine. (8) DVT prophylaxis: Status: Acute Assessment and plan: enoxaparin SC (9) Discharge planning issues: Status: Acute Assessment and plan: DNR/DNI Followed by PT, palliative care, speech. Anticipate return to the [facility] after 5 days of IV abx Subjective Subjective Interval history since last seen: Ms Thornton has been on room air. Has been up to a chair and walking. Denies dizziness, CP, SOB, n/v. She has been coughing. Had a midline placed yesterday. Tmax 38.1 yesterday at around 13:30. HR up to 130-150s this am. Exam Narrative Exam Narrative: General: Pleasant elderly female who sounds hoarse, A&Ox1, on RA, no dyspnea, tachypnea, cyanosis, coughing HEENT: EOMI, MMM Heart: irregularly irregular rhythm, no m/r/g, tachycardic to 130s-140s while I am in the room Lungs: Diminished breath sounds B Abdomen: soft, nontender, nondistended Extremities: trace edema BLEs, unable to palpate pedal pulse RLE, +1 pedal pulse LLE, no c/c. Objective Last Vital Signs Temp 37.6 C H 11/05/22 11:37 Pulse 111 H 11/05/22 07:36 Resp 18 11/05/22 07:36 BP 105/61 11/05/22 07:30 Pulse Ox 93 11/05/22 07:36 Laboratory Results - last 24 hr 11/05/22 11/05/22 11/05/22 06:15 06:15 06:15 WBC 17.08 H RBC 3.92 L Hgb 11.2 Hct 34.5 L MCV 88 MCH 28.6 MCHC 32.5 RDW 15.5 H Plt Count 290 MPV 10.1 Immature Gran % See Differential Neutrophils % 73.0 Band Neutrophils % 4 Lymphocytes % 6.0 Monocytes % 3.0 Eosinophils % 0.0 Basophils % 1.0 Metamyelocytes % 5 Myelocytes % 8 Nucleated RBC % 0.0 Absolute Neutrophils 13.15 H Absolute Lymphocytes 1.02 L Absolute Monocytes 0.51 Absolute Eosinophils 0.00 Absolute Basophils 0.17 RBC Morphology Normal Sodium 140 Potassium 3.1 L Chloride 103 Carbon Dioxide 28.2 Anion Gap 8.8 BUN 31 H Creatinine 1.3 H Est GFR (CKD-EPI 2020) 40.30 Glucose 155 H Hemoglobin A1c 5.7 Calcium 8.6 Magnesium 1.8 Objective Narrative Objective Narrative: echo; Technically difficult study.? The patient was in an? irregular and tachycardic rhythm throughout with [id number] variation Left ventricle appears normal in size wall thickness and overall systolic function.? No segmental wall motion abnormalities are identified Normal right ventricular size and systolic function Left atrium is mildly dilated.? Normal right atrial size Aortic valve is sclerotic without stenosis or regurgitation Normal mitral valve with trace regurgitation Normal tricuspid valve with mild regurgitation.? Estimated right ventricular systolic pressure is 34 mmHg Time Spent with Patient Time Spent with Patient: 25-34 minutes Time was spent: preparing to see the patient(eg.review tests), obtaining and/or reviewing separately otained hiistory, ordering medications,tests, procedures, referring, communicating with other health home health care provider, indepentently interpreting results, counseling the patient and care coordination
[2022-11-05] MEDS: Levalbuterol 1.25 MG/3 ML UPD VIAL UPD (12:58)
[2022-11-05] MEDS: Ipratropium 0.5 MG/2.5 ML UPD VIAL UPD ×2 (12:58→17:29)
--- NOTE | 2022-11-05 13:27 | PT.INTREAT ---
Date of service: 11/05/22 Time of Service: 10:05 PT Notes Visit Reasons: Pneumonia Inpatient Physical Therapy Treatment Note [facility] Date: 11/05/2022 PRECAUTIONS:Fall, Standard, Activities as tolerated SUBJECTIVE: Stated she is doing fair, but needs to cough up stuff. OBJECTIVE: Noted to be coughing a lot throughout session today PAIN: No pain reported BED MOBILITY/TRANSFERS Up in chair when I arrived to patient's room, brushing her teeth. GAIT Assistive Device: FWW Weight bearing: Full Assist: CGA Distance: Worked on stepping in place due to limited cords. Able to perform 10 steps x 4 sets with short seated break, after first 2 sets. Minimal SOB VITALS: Monitored via nursing. THEREX: Performed ankle pumps x 20 reps, LAQs for 10 reps x 2 sets and seated marching for 10 reps x 2 sets. ASSESSMENT: Tolerated today's session very well. Good effort given. HR was noted to rise into the 140 range occasionally with activity. PLAN: Continue with current POC with focus on improved ADL function. TREATMENT CODE/TIME: [id number], 10:05 to 10:25 (20')
--- NOTE | 2022-11-05 14:56 | SPP_ITS ---
Date of service: 11/05/22 Time of Service: 14:56 Subjective DEPARTMENTAL SHIPPING CLERK Communication / Non-Treatment Note Chart reviewed; DEPARTMENTAL SHIPPING CLERK spoke with patient's RN, Susan re: current patient status, ie patient has been doing well specifically with thin liquids this date, which is a great improvement from earlier baseline. Patient has been up in chair and walking this date with continued coughing per MD. Plan: No need for changes to current diet orders or updated recommendations at this time. DEPARTMENTAL SHIPPING CLERK to return for full assessment/screening as appropriate, provide updated recommendations PRN. Current Recommendations: In absence of Clinical Swallow Evaluation, but based on provider report and chart review, recommend to maintain current diet, with the below strict aspiration precautions in place. If despite these strategies, concern remains high for aspiration with thin liquids, recommend to downgrade to Mildly Thick Liquids during meals, with thin liquids OK between meals if strict oral care is provided and upright posture, small sips maintained. Diet Texture Modification(s): IDDSI Level(s) SOLIDS 6-Soft & Bite-Sized Solids LIQUIDS 0-Thin Liquids Medication Intake: Whole, one at a time with 0-Thin Liquids or tsp 4-Puree as tolerated Alter medications only as advised by MD or Pharmacist RISK MANAGEMENT: HOB upright as tolerated; upright for all PO intake. Encourage physical mobility as tolerated. Oral hygiene q4h/every 4 hours & before/after PO intake, using friction with toothbrush on all oral structures as tolerated, suction PRN Level of Assistance/Supervision: 1:1 distant vs close supervision for all PO intake PO intake only when awake/alert? Strategies/Adaptations/Assistive Equipment: Reduce auditory and/or visual distractions when eating Provide verbal and/or visual cues to use recommended strategies Small sips Slow rate of intake Posture/Positioning Needs: Maintain upright position at least 30 minutes after meals, Avoid meals/snacks 2- 3 hours prior to reclining/sleeping, Sleep with head of bed elevated to reduce likelihood of nocturnal reflux Veronica Noyola MA [facility]-DEPARTMENTAL SHIPPING CLERK Speech-Language Pathologist RI#[phone] Coding Diagnoses
[2022-11-05] MEDS: Enoxaparin 40 MG/0.4 ML SYR SC (20:53)
[2022-11-05] MEDS: guanFACINE 1 MG TAB PO (22:24)
[2022-11-06] VITALS (11 sets, daily range): BP systolic 128–134; BP diastolic 68–76; PULSE 86–110; RESP 1–18; TEMP 36.2; O2SAT 93–95
[2022-11-06] MEDS: AMPICILLIN/SULBACTAM 3 GM in Normal Saline 100 ML IVPB ×5 (00:54→23:49)
[2022-11-06] MEDS: Levothyroxine 25 MCG TAB PO (05:33)
[2022-11-06 07:03] LABS: Abs Immature Grans 3.58 10^3/uL (0.0-0.06); HCT 33.4 % (36.0-46.0); HGB 10.9 g/dL (11.2-15.7); MCH 28.8 pg (27.0-33.0); MCHC 32.6 % (32.0-36.0); MCV 88 fL (80-95); MPV 9.8 fL (8.0-11.0); Platelet Count 308 10^3/uL (130-400); RBC 3.79 10^6/uL (3.93-5.22); RDW 15.6 % (11.7-14.6); RDW-SD 50.4 fL; WBC 15.49 10^3/uL (4.4-10.8)
[2022-11-06 07:26] LABS: BUN 23 mg/dL (7-18); CREATININE 1.2 mg/dL (0.55-1.02); Calcium 8.5 mg/dL (8.5-10.1); Chloride 106 mmol/L (98-107); Estimated GFR 44.36 (mL/min/1.73m2); Glucose 117 mg/dL (74-106); Magnesium 1.9 mg/dL (1.8-2.4); Potassium 3.9 mmol/L (3.5-5.1); Sodium 143 mmol/L (136-145)
[2022-11-06] MEDS: Spironolactone 25 MG TAB 12.5 MG PO (07:59)
[2022-11-06] MEDS: Senna TAB 2 TAB PO ×2 (07:59→20:24)
[2022-11-06] MEDS: Metoprolol 12.5 MG TAB PO ×3 (07:59→20:24)
[2022-11-06] MEDS: Magnesium Chloride 64 MG TABCR PO ×2 (07:59→20:23)
[2022-11-06] MEDS: QUEtiapine 50 MG TAB PO ×2 (07:59→20:24)
[2022-11-06] MEDS: Polyethylene Glycol 3350 17 GM PACKET PO (07:59)
[2022-11-06] MEDS: guaiFENesin 600 MG TABCR PO ×2 (08:00→20:24)
--- NOTE | 2022-11-06 09:06 | PDOC.CMPRO ---
Date of service: 11/06/22 Time of Service: 09:06 Care Management Progress Note Progress Note Text Progress Note Text: S/O: Meredith was sitting up in her chair when CM met with her. Her son, Diego and his , Yris, were in the room. Diego stated that his sister's name is Yris, and her 's name is Diego, which can be confusing for staff. Yris, Meredith's daughter, generally coordinates Merdeith's care, as Diego lives in [place]. Meredith stated that she is feeling better today, although she is tired and coughing. Per report, her WBC remains elevated, and she will stay inpatient overnight to receive additional antibiotics. Per provider, she will likely be ready for discharge in 24-48 hours. Diego stated that he will provide transportation, if she is discharged before Friday. CM will continue to follow. A: Meredith is an 86 year old female admitted to [facility] on 11/03/22 with pneumonia. P: ?Anticipate Meredith will discharge back to the [facility] when medically cleared. She will follow up with the facility providers and plan of care and transport with RCT coordinated by CM. CM will follow and continue to assess for discharge needs.
[2022-11-06 09:44] LABS: Absolute Eosinophil Count 0.15 10^3/uL (0.0-0.7); Absolute Lymphocyte Count 2.63 10^3/uL (1.2-3.4); Absolute Monocyte Count 0.62 10^3/uL (0.1-0.8); Absolute Neutrophil Count 10.53 10^3/uL (1.2-6.7); Atypical Lymphocytes % 1; Bands % 3
[2022-11-06 09:45] LABS: Metamyelocytes % 4; Myelocytes % 6
[2022-11-06 09:46] LABS: Diff Comment Manual Differential; Polychromasia Present
[2022-11-06] MEDS: Ipratropium 0.5 MG/2.5 ML UPD VIAL UPD ×3 (12:57→23:59)
[2022-11-06] MEDS: AZITHROMYCIN 250 MG in Normal Saline 250 ML IVPB (13:22)
--- NOTE | 2022-11-06 14:07 | PT.INTREAT ---
Date of service: 11/06/22 Time of Service: 10:20 PT Notes Visit Reasons: Pneumonia Inpatient Physical Therapy Treatment Note [facility] Date: 11/06/22 PRECAUTIONS: Fall, standard, activity as tolerated SUBJECTIVE: Patient supine in bed, agreeable to therapy OBJECTIVE: PAIN: none reported BED MOBILITY/TRANSFERS Rolling L/R: standby Supine-sit: standby Sit-supine: standby Sit-stand: CGA Stand-sit: CGA Bed-Chair: CGA Chair-bed: CGA GAIT Assistive Device: FWW Weight bearing: full Assist: CGA Distance: 200 feet Deviation: No loss of balance, no report of dizziness, no shortness of breath. Patient does report being tired at the end of treatment. VITALS: Monitored by nursing staff via telemetry THEREX: sit to stand x 5, LAQ x10, ankle pumps 2x10 ASSESSMENT: Patient tolerates therapy well, wishes her family had seen how well she walked. Sitting up in recliner at end of treatment, GABY alarm in place, call neely and tray table in easy reach. PLAN: Continue global strengthening per plan of care until patient is medically cleared for discharge. TREATMENT CODE/TIME: 95564 Ther Ex 15 minutes , 66365 Gait 14 minutes beginning at 10:20
--- NOTE | 2022-11-06 14:34 | W.SPSTE ---
Date of service: 11/06/22 Time of Service: 12:15 Subjective Clinical (Bedside) Swallow Evaluation Speech Language Pathology Patient referred for Clinical Swallow Evaluation from Dr Ruiz given question of aspiration PNA and nursing report of struggle with thin liquids. Precautions: Fall, Standard, DNR/DNI, Activity as tolerated. SUBJECTIVE: Patient received upright to chair for lunch time meal with family present, agreeable to evaluation, able to communicate wants/needs effectively; able to demonstrate comprehension, though may struggle with recall/carryover of recommendations for safe p.o. intake upon discharge once deemed medically stable. Pur nursing she has shown improving tolerance of thin liquids, but occasionally struggling with larger volumes. ? HPI:?86-year-old female, not known to DOCUMENT CLERK service,? residing at the [facility], with history hypertension, prediabetes, macular degeneration, generalized anxiety disorder, essential tremor, hypothyroidism, Lung nodule, dementia and lacunar strokes. She presented with 5 day hx of chest congestion and a minimally productive cough.? Admitted for treament of pneumonia. Noting on recent palliative visit some ?oral dyskenesia with concern for tremor vs TD, with consideration of reduction of quetiapine meds being given for memory/ing given risks. ? IMPRESSIONS & PLAN: No notable tremor observed this date during meal, will continue to monitor. Patient appeared to tolerate soft/bite size solid tray items this date without difficulty. In the oral phase she demonstrates mild reduced rotary pattern with mastication but otherwise achieves good posterior transit. Mild anterior loss vs [id number] feeding coordination. My primary concern was with poor tolerance of thin liquids when taken in large volume/fast pace. Patient is somewhat impulsive with liquids and requires fairly consistent cues to recall and implement small/single sips for which she demonstrates improved tolerance. Focused education on relationship between cardio-pulmonary status, aspiration PNA, and oral care as well as risk mitigation strategies as described in recommendations below. Further DOCUMENT CLERK services: Inpatient / patient to be followed while on unit for reinforcement of education/strategies. Recommend DOCUMENT CLERK evaluation upon return to [facility] to ensure their staff are informed of her strategies and precautions, and to ensure cont'd tolerance of liquids. ? Instrumentation: ? VFSE/MBSS - consider outpatient if aspiration concerns continue Diet Texture Modification(s): IDDSI Level(s) SOLIDS 6-Soft & Bite-Sized Solids LIQUIDS 0-Thin Liquids Medication Intake: Whole with 4-Extremely Thick Liquids/Puree Alter medications only as advised by MD or Pharmacist RISK MANAGEMENT: HOB upright as tolerated; upright for all PO intake. Encourage physical mobility as tolerated. Oral hygiene BID/2x per day as well asbefore/after PO intake, using friction with toothbrush on all oral structures as tolerated ? Level of Assistance/Supervision: 1:1 close supervision/assist for all PO intake PO intake only when awake/alert? Strategies/Adaptations/Assistive Equipment: Reduce auditory and/or visual distractions when eating Provide verbal and/or visual cues to use recommended strategies Small sips one at a time Avoid straws Posture/Positioning Needs: Maintain upright position at least 30 minutes after meals Avoid meals/snacks 2-3 hours prior to reclining/sleeping PFSH All Active Problems?(Updated 11/04/22 @ 00:46 by Sravan Reyes MD) Chronic heart failure with preserved ejection fraction (Chronic) Discharge planning issues (Acute) DVT prophylaxis (Acute) Elevated brain natriuretic peptide (BNP) level (Acute) Pneumonia (Acute) Macular degeneration (Acute) Essential tremor (Acute) familialGait abnormality (Acute) uses a walker when out, balance and shuffling stepsPrediabetes (Acute) 03/26/21- A1c 5.9 UVMHypertension (Chronic) Anxiety (Chronic) CKD (chronic kidney disease) stage 3, GFR 30-59 ml/min (Acute) Hypothyroid (Chronic) 03/26/21- TSH 2.95 UVM0 WNLMemory changes (Acute) Dyspnea (Acute) Left lower lobe pulmonary nodule (Acute) PET 10/2021: highly metabolically active left lower mass, organizing pneumonia vs. bronchogenic neoplasm, Repeat 2-3 monthsStroke (Chronic) Episode of unresponsiveness (Acute) Palliative care patient (Acute) Advanced care planning/counseling discussion (Acute) Onychogryphosis (Acute) Plantar wart, right foot (Acute) Yeast dermatitis (Acute) Medical History? Abnormal chest CT Acute infective polyneuritis (~04/03/1966) B12 deficiency Cerebrovascular accident 2/08 CT @ [facility]: SMALL LACUNAR INFARCTS.? Incidental findings. Pt. states she is unaware of this dx.Closed displaced fracture of greater tuberosity of left humerus (04/10/14) Closed fracture of head of left humerus (04/10/14) Dislocation of shoulder, anterior, left, closed (04/10/14) Guillain Ruiz? syndrome age ~30sHallucinations resolvedHx of pancreatitis Hypothyroidism not taking meds at this time- pt refusesMeningioma cerebral, left frontal, small, stable since 2007-Pt. states she is unaware of this.Pneumonia (~07/20/18) Prerenal azotemia Surgical History? Cholecystectomy (~1991) Fracture, Closed Treatment (04/10/14) LEFT SHOULDER FX AND DISLOCATEDPosterior subcapsular age-related cataract, right eye Status post extracapsular cataract extraction of left eye OBJECTIVE: Respiratory: room air, tolerates well - some productive wet coughing reported Language: Grossly WFL but limited conversational initiation Hearing: appearing wfl Mental Status: Alert and Oriented to self only Recall of current events impaired Speech: WFL Oral Motor Exam: ? Dentition ? Natural dentition ? Good condition ? Oral Mucosa ? Moist ? Fair oral care ? CN V - Trigeminal ? Jaw Movement ? WFL ? CN VII ? Labial/Facial ? WFL ? CN IX ? Palate ? WFL ? CN X ? Laryngeal ? Vocal quality ? WFL ? Volitional cough ? Mildly weak ? CN XII ? Lingual ? WFL ? Volitional Swallow ? Suspect reduced laryngeal elevation ? Suspect delayed onset of swallow ? [place] Swallow Protocol Results ? FAIL: Overt signs of aspiration during or immediately after completion. ? Food items tested: ?? IDDSI 0: IDDSI 6: Oral phase: Leakage from mouth Difficulty chewing (MILD REDUCED ROTARY PATTERN) Pharyngeal phase: Cough after swallow (large volume/fast rate liquids) Provided education to: Patient, Family Topics Addressed: anatomy/physiology of swallowing mechanism, overt s/sx to monitor for re: potential aspiration of food / liquids, recommendations for improved oral care, relationship between respiratory function changes and deglutition, Rationale for recommendations as outlined below Outcome: Verbalized/demonstrated understanding - (FAMILY) Needs review/reinforcement - (PATIENT) Goals: Patient will tolerate safest/least restrictive without s/sx aspiration. CURRENT DIET: Soft/Bite Size Solids, Thin Liquids Patient/caregiver will be independent with aspiration precautions, diet modifications, and safe swallowing strategies. Time spent: 30 minutes Coding Diagnoses CPT Codes EVALUATE SWALLOWING FUNCTION - [id number] ([id number])
--- NOTE | 2022-11-06 19:49 | PGE_ITS ---
Date of Service Date of service: 11/06/22 Time of Service: 19:49 Subjective Subjective Interval history since last seen: Patient is sitting in the chair. She has family visiting from [place]. They feel she looks much better today. The patient still has a mild cough and congestion but overall seems to feel better. She is moderately demented and while she can interact with family some of her speech is nonsensical. Exam Narrative Exam Narrative: On exam she makes eye contact and does attempt to communicate. She does not appear in any respiratory distress but has obvious upper nasal congestion and a moderate cough that seems to be productive. Her lung exam notable for some decreased breath sounds at the left base and some rales above that on the right side appear to be relatively clear heart sounds irregularly irregular. Abdomen was soft and nontender. Lower extremities no significant edema. Objective Last Vital Signs Temp 36.2 C L 11/06/22 07:14 Pulse 95 H 11/06/22 18:04 Resp 18 11/06/22 18:00 BP 128/68 11/06/22 07:14 Pulse Ox 94 11/06/22 13:18 Laboratory Results - last 24 hr 11/06/22 11/06/22 06:30 06:30 WBC 15.49 H RBC 3.79 L Hgb 10.9 L Hct 33.4 L MCV 88 MCH 28.8 MCHC 32.6 RDW 15.6 H Plt Count 308 MPV 9.8 Immature Gran % See Differential Neutrophils % 65.0 Band Neutrophils % 3 Lymphocytes % 16.0 Atypical Lymphs % 1 Monocytes % 4.0 Eosinophils % 1.0 Basophils % 0.0 Metamyelocytes % 4 Myelocytes % 6 Nucleated RBC % 0.0 Absolute Neutrophils 10.53 H Absolute Lymphocytes 2.63 Absolute Monocytes 0.62 Absolute Eosinophils 0.15 Absolute Basophils 0.00 RBC Morphology See Below Polychromasia Present Sodium 143 Potassium 3.9 Chloride 106 Carbon Dioxide 29.0 Anion Gap 8.0 BUN 23 H Creatinine 1.2 H Est GFR (CKD-EPI 2020) 44.36 Glucose 117 H Calcium 8.5 Magnesium 1.9 Objective Narrative Objective Narrative: Bilateral pneumonia. Chest x-ray confirms bilateral infiltrates and effusions. This accounts for the lack of breath sounds at the left base. I think she is aerating her upper lung meehan fairly well. Continue to encourage pulmonary toilet, coughing and mucus production. She is satting 95% on room air which is encouraging. Continue to monitor for improvement and potential return back to the [facility]. She has atrial fibrillation and at times gets into the 120s. Continue present medications. Time Spent with Patient Time Spent with Patient: 25-34 minutes Time was spent: preparing to see the patient(eg.review tests), obtaining and/or reviewing separately otained hiistory, ordering medications,tests, procedures, referring, communicating with other health adult daycare coordinator, indepentently interpreting results and counseling the patient
[2022-11-06] MEDS: Enoxaparin 40 MG/0.4 ML SYR SC (20:23)
[2022-11-06] MEDS: guanFACINE 1 MG TAB PO (21:35)
[2022-11-07] VITALS (12 sets, daily range): BP systolic 117–146; BP diastolic 75–85; PULSE 66–97; RESP 1–20; TEMP 35.7–36; O2SAT 95–99
[2022-11-07] MEDS: Metoprolol 12.5 MG TAB PO ×4 (02:14→19:21)
[2022-11-07] MEDS: AMPICILLIN/SULBACTAM 3 GM in Normal Saline 100 ML IVPB (05:13)
[2022-11-07] MEDS: Levothyroxine 25 MCG TAB PO (05:16)
[2022-11-07] MEDS: Ipratropium 0.5 MG/2.5 ML UPD VIAL UPD ×3 (05:16→18:25)
[2022-11-07 06:23] LABS: Abs Immature Grans 2.47 10^3/uL (0.0-0.06); Absolute Basophil Count 0.13 10^3/uL (0.0-0.2); Absolute Eosinophil Count 0.21 10^3/uL (0.0-0.7); Absolute Monocyte Count 0.69 10^3/uL (0.1-0.8); Absolute Neutrophil Count 8.66 10^3/uL (1.2-6.7); Basophils % 0.9; Eosinophils % 1.5; HCT 32.8 % (36.0-46.0); HGB 10.7 g/dL (11.2-15.7); Immature Grans % 17.5; Lymphocytes % 13.9; MCHC 32.6 % (32.0-36.0); MCV 89 fL (80-95); MPV 9.7 fL (8.0-11.0); Monocytes % 4.9; Neutrophils % 61.3; Platelet Count 308 10^3/uL (130-400); RBC 3.69 10^6/uL (3.93-5.22); RDW 15.4 % (11.7-14.6); RDW-SD 50.3 fL; WBC 14.13 10^3/uL (4.4-10.8)
[2022-11-07 06:25] LABS: Absolute Lymphocyte Count 1.96 10^3/uL (1.2-3.4)
[2022-11-07 06:38] LABS: Anion Gap 6.4 mmol/L (3-11); BUN 24 mg/dL (7-18); CO2 30.6 mmol/L (21.0-32.0); CREATININE 1.3 mg/dL (0.55-1.02); Calcium 8.5 mg/dL (8.5-10.1); Chloride 106 mmol/L (98-107); Glucose 119 mg/dL (74-106); Potassium 4.1 mmol/L (3.5-5.1); Sodium 143 mmol/L (136-145)
[2022-11-07] MEDS: Senna TAB 2 TAB PO ×2 (08:42→19:21)
[2022-11-07] MEDS: Polyethylene Glycol 3350 17 GM PACKET PO (08:42)
[2022-11-07] MEDS: Magnesium Chloride 64 MG TABCR PO ×2 (08:43→19:20)
[2022-11-07] MEDS: guaiFENesin 600 MG TABCR PO ×2 (08:43→19:20)
[2022-11-07] MEDS: QUEtiapine 50 MG TAB PO ×2 (08:43→19:21)
[2022-11-07] MEDS: Spironolactone 25 MG TAB 12.5 MG PO (08:43)
--- NOTE | 2022-11-07 08:55 | DI.RAD_ITS ---
Exam(s) XR PORTABLE CHEST AP EXAM: XR PORTABLE CHEST AP CLINICAL HISTORY: pneumonia, slow to improve TECHNIQUE: 2D digital imaging was performed. COMPARISON: CR,XR XR CHEST 2V PA LATERAL from 11/03/2022 FINDINGS: The exam is limited by poor pulmonary inflation. LUNGS: Small left pleural effusion. Increasing densities at the left lung base. Stable densities ri ght upper and lower lung field. HEART: Normal size. AORTA: Tortuous. BONES: Prominent osteophytes. Old left proximal humeral fracture. Soft tissues: Unremarkable. IMPRESSION: Exam limited by suboptimal pulmonary inflation. Further worsening of left lower lobe infiltrate. St able right-sided infiltrates. DATA REPOSITORY: RADIATION DOSE DELIVERED:
--- NOTE | 2022-11-07 10:40 | PT.INTREAT ---
PT Notes Visit Reasons: Pneumonia Date: 11/07/22 PRECAUTIONS: Fall, standard, activity as tolerated SUBJECTIVE: Patient supine in bed, agreeable to therapy. (AM) Seen again in afternoon; pt sitting in recliner upon approach, agreeable to therapy. (PM) OBJECTIVE: ? PAIN: none reported ? BED MOBILITY/TRANSFERS? Sit-stand: CGA? Stand-sit: CGA ? Bed-Chair: CGA ? Chair-bed: CGA ? GAIT? Assistive Device: FWW? Weight bearing: full Assist: CGA ? Distance:? 250', 150' (AM) 150' (PM) ? Deviation: Short step height and step length, lateral toe out during stance of Right foot. ? VITALS:? Monitored by nursing staff via telemetry ? THEREX: sit to stand with BUE support/min A 3x, 2x, LAQ 2lbs ankle weight 1x10, ankle pumps 2lbs 1x10, seated marching, seated hip abduction with 2lbs weights 1x10, heel raises. (AM) ? ASSESSMENT:? Pt motivated to move and recover, has a positive attitude. Pt required seated rest breaks b/t gym exercises and stated she was tired by the end of the treatment. (AM) Pt. slightly disoriented this afternoon, wondering if her family was still in the area and wants to see them before they go back home. PM session cut short due to pt reporting pain on her thigh while ambulating from the tubing taped there and scratching her other leg, she opted to return to her room instead of continue to the gym. PLAN: Continue global strengthening per plan of care until patient is medically cleared for discharge. TREATMENT CODE/TIME: 37462 Ther Ex, [id number] Gait Training (10:20- 11:00 am- 2:35-2:50 pm)
--- NOTE | 2022-11-07 11:30 | W.PALLCONSUL ---
Date of service: 11/07/22 Time of Service: 11:30 History of Present Illness Narrative: Mrs. Thornton is an 86-year-old woman with history of hypothyroidism, hypertension, anxiety with panic disorder, mild cognitive impairment, stroke,? several episodes of nonresponsiveness, and suspicious left lower lobe nodule (which she has elected to not have worked up).? She has been followed by Palliative Care Team both the [facility] and at the [facility]. I last saw her September [address] [facility] for follow-up; she was adjusting to new living situation and seem to be doing well.. As per hospital notes, she really presented to the ED with respiratory illness causing Chest congestion, cough and some tachypnea. Found to have bibasilar pneumonia. She was admitted for treatment for this. Patient reports she is feeling better. Note says she was resistant to having IV placed and then having to have the IV replaced. However right now she says she would agree to have a new IV if needed. She would prefer to have the Saunders catheter removed. She is glad she came to the hospital to be treated. But she would like to go back to the [facility] as soon as possible; the reason for this is that her son and [id number] from out of town visiting, and she feels it would be better for them for her to be back at the [facility]. Primary Care Physician: Currently: The 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 1 daughter lives in [place].? Her son lives in [place].? She has grandchildren and great-grandchildren.? for about 2 years.? Over the last year or so has lived in community care homes.? Prior to that was living in senior housing, but as per daughter, needed additional support.? Previously staying with caregiver [place], but had to move to [facility], due to caregivers medical issues.. Function: Ambulation: Uses walker.? Generally steady and can walk long distances with her walker. ADLs: Dresses with some assistance (because of bad shoulders)., rare urinary incontinence.? No fecal incontinence iADLs: Needs help with all a IADLs.? Does not prepare her own food or administer her own medications.? Daughter handles finances. Hearing: Wears hearing aids.? Seem to be working well today Vision: Able to read newspaper. Cognition: Generally with poor short-term memory. Also known to sundown on occasion. Palliative Performance Scale % Ambulation Activity and Evidence of Disease Self Care Intake Level of Consciousness 100 Full Normal activity, no evidence of disease Full Normal Full 90 Full Normal activity, some evidence of disease Full Normal Full 80 Full Normal activity with effort, some evidence of disease Full Normal or reduced Full 70 Reduced Unable to do normal work, some evidence of disease Full Normal or reduced Full 60 Reduced Unable to do hobby or some housework, significant disease Occasional assist necessary Normal or reduced Full or confusion 50 Mainly sit/lie Unable to do any work, extensive disease Considerable assistance required Normal or reduced Full or confusion 40 Mainly in bed Unable to do any work, extensive disease Mainly assistance Normal or reduced Full, drowsy, or confusion 30 Totally bed bound Unable to do any work, extensive disease Total care Reduced Full, drowsy, or confusion 20 Totally bed bound Unable to do any work, extensive disease Total care Minimal sips Full, drowsy, or confusion 10 Totally bed bound Unable to do any work, extensive disease Total care Mouth care only Drowsy or coma 0 - - - - Patient Score: 50?60 prior to admission Spiritual history: Reports she does not attend episcopalian or formally pray.? But feels spiritual in my head. Finds support from family and friends and caregiver Palliative review of systems: Pain:None Dyspnea:None GI symptoms: S Appetite: Depression: Anxiety: Denies Skin: Not queried Emotional Distress: Spiritual/Existential Distress: No recent falls Labs: Cr: 1.3 (previously 1.2?1.64) Liver panel: NL 08/25, albumin 3.8 08/25 (we will not look at acutely low albumin during admission) CBC: Hemoglobin 10.7 (has been running normal prior to admission Echocardiogram (11/05/2022:): Good moving muscle, estimated EF 55%. No significant valvular issues. Chest x-ray with small pleural effusion and infiltrate present. Advanced Care Planning: Advanced Directive:None on file Health Care Agent: Daughter Yris Rodriges COLST: Revised 04/2022 DNI/DNR, transfer to the hospital and treat.? Avoid intensive interventions, no intubation. Assessment and Plan Assessment and plan (1) Palliative care patient: Status: Acute Assessment and plan: Palliative Care Team will continue to follow patient after discharge. Please contact us if she needs to be seen again in the hospital prior to discharge. (2) Advanced care planning/counseling discussion: Status: Acute Assessment and plan: 1. Reviewed current goals of care and CODE STATUS with both patient and [facility] daughter Yris Rodriges. They are both still agreeable and treatment given during this hospitalization align with their wishes. They confirm that she is DNR/DNI 2. Although patient expressed some displeasure at having to have midline IV placed and then replaced, she says she would agree to have it replaced again if necessary. However if she is able to transition to antibiotic pills, she would prefer to do this. She also would strongly prefer to have Saunders catheter removed. She is now taking p.o. well and heart failure is not felt to be a significant part of her clinical picture. 3.patient desires to be transferred back to the [facility] as soon as possible. Hospitalist concerned about slow decrease in white blood cell count. However patient is eating and drinking well and not requiring supplemental oxygen. Physical therapy notes big improvement in effort today over several days ago. As she lives at the [facility], she will hopefully be admitted to subacute rehab initially and get aggressive physical therapy while there. Recommend: -Consider removing Saunders catheter, unless being used for specific reason. -Consider transitioning back to oral antibiotics as soon as appropriate. -Can discuss with family pros and cons of discharging earlier rather than later. They understand that the earliest she could possibly be discharged tomorrow. I urged them to defer to reccomendations of hopsitalist. -Limit needlesticks, blood draws, replacing of IVs is much as possible.. (3) Pneumonia: Status: Acute (4) Dementia with behavioral disturbance: Status: Acute Assessment and plan: Patient has history of rare intermittent meltdowns , occurring 1-2 times a month. Upon admission to the [facility] she was placed on a slightly higher dose of quetiapine at 50 mg twice a day. She has had no meltdowns since that started and no further need for PRN benzodiazepine. SHe has had no obvious ill effects from higher dosing. (5) DNR no code (do not resuscitate): Status: Acute [facility] All Active Problems (Updated 11/07/22 @ 12:54 by Juana Bradford MD) DNR no code (do not resuscitate) (Acute) Dementia with behavioral disturbance (Acute) Chronic heart failure with preserved ejection fraction (Chronic) Discharge planning issues (Acute) DVT prophylaxis (Acute) Elevated brain natriuretic peptide (BNP) level (Acute) Pneumonia (Acute) Macular degeneration (Acute) Essential tremor (Acute) familial Gait abnormality (Acute) uses a walker when out, balance and shuffling steps Prediabetes (Chronic) 03/26/21- A1c 5.9 [facility] Hypertension (Chronic) Anxiety (Chronic) CKD (chronic kidney disease) stage 3, GFR 30-59 ml/min (Chronic) Hypothyroid (Chronic) 03/26/21- TSH 2.95 [facility]0 WNL Memory changes (Acute) Dyspnea (Acute) Left lower lobe pulmonary nodule (Acute) PET 10/2021: highly metabolically active left lower mass, organizing pneumonia vs. bronchogenic neoplasm, Repeat 2-3 months Stroke (Chronic) Episode of unresponsiveness (Acute) Palliative care patient (Acute) Advanced care planning/counseling discussion (Acute) Onychogryphosis (Acute) Plantar wart, right foot (Acute) Yeast dermatitis (Acute) Medical History Abnormal chest CT Acute infective polyneuritis (~04/03/1966) B12 deficiency Cerebrovascular accident 06/12 CT @ [facility]: SMALL LACUNAR INFARCTS. Incidental findings. Pt. states she is unaware of this dx. 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 states she is unaware of this. Pneumonia (~07/20/18) Prerenal azotemia Surgical History Cholecystectomy (~1991) Fracture, Closed Treatment (04/10/14) LEFT SHOULDER FX AND DISLOCATED Posterior subcapsular age-related cataract, right eye Status post extracapsular cataract extraction of left eye Family History Mother , age 56 Cancer Father , age 76 Heart disease Sister No problems noted. Son No problems noted. Daughter No problems noted. Maternal Grandfather , age 78 No problems noted. Paternal Grandfather , age 62 Stroke Maternal Grandmother , age 89 - Accident No problems noted. Paternal Grandmother , age 68 No problems noted. Social History Smoking/Tobacco Use Status: Never Second Hand Exposure: Yes Smoking risk assessment performed?: Yes Alcohol Intake: never Drug use: Never Substance use type: does not use Counseling given: No Caregiver/Support person: Yes Household members: caregiver Housing: jail Communication Needs: Hard of Hearing Do you need help understanding health information?: Always Pets and animals: No Sexually active: No Do you think of yourself as: straight/heterosexual Current gender identity: female What is your relationship status?: How often do you talk on the phone with friends or family?: three or more times per week How often do you get together with friends or relatives?: once per week How often do you attend episcopalian or uatsdin services?: 1-3 times per year Do you belong to any clubs or organized social groups?: no Panel score (0-1 are the most socially isolated patients): 1 What type of physical activity do you participate in: walking and weight lifting Duration: < 15 minutes/day Frequency: 1-2 times per week Anai/Religious: Muslim Special anai needs: No Seatbelt use: always Helmet use: No Drive intox or ride w/intox driver operator: No Do you feel safe at home: Yes Do you feel safe in your relationship?: Yes Exam Narrative Exam Narrative: PLeasant, NAD. THen deep wet cough productive of marin sputum after ET gives her a neb. Voice normal. Is able to eat half of her lunch tray avidly without dyspnea. Results Last Vital Signs Temp 35.9 C L 11/07/22 08:45 Pulse 79 11/07/22 08:45 Resp 18 11/07/22 08:45 BP 144/81 H 11/07/22 08:45 Pulse Ox 95 11/07/22 08:45 Labs 11/07/22 06:00 11/07/22 06:00 Labs: Laboratory Results - last 24 hr 11/07/22 11/07/22 06:00 06:00 WBC 14.13 H RBC 3.69 L Hgb 10.7 L Hct 32.8 L MCV 89 MCH 29.0 MCHC 32.6 RDW 15.4 H Plt Count 308 MPV 9.7 Immature Gran % 17.5 Neutrophils % 61.3 Lymphocytes % 13.9 Monocytes % 4.9 Eosinophils % 1.5 Basophils % 0.9 Nucleated RBC % 0.0 Absolute Neutrophils 8.66 H Absolute Lymphocytes 1.96 Absolute Monocytes 0.69 Absolute Eosinophils 0.21 Absolute Basophils 0.13 Sodium 143 Potassium 4.1 Chloride 106 Carbon Dioxide 30.6 Anion Gap 6.4 BUN 24 H Creatinine 1.3 H Est GFR (CKD-EPI 2020) 40.30 Glucose 119 H Calcium 8.5
--- NOTE | 2022-11-07 12:41 | PDOC.CMPRO ---
Date of service: 11/07/22 Time of Service: 12:41 Care Management Progress Note Progress Note Text Progress Note Text: S/O: Per provider, Meredith's WBC remains elevated; anticipate antibiotic change today with further monitoring; no change to overall plan. Meredith remains on room air, and is ambulating 400ft with PT with a standby assist. IS and Acapella devices continue to be encouraged. Chest xray anticipated today as well; CM continues to follow. Diego stated that he will provide transportation, if she is discharged before Friday. CM will continue to follow. A: Meredith is an 86 year old female admitted to [facility] on 11/03/22 with pneumonia. P: Meredith will discharge back to [facility][1] when medically cleared. She will follow up with the facility providers and plan of care and transport with her son or via RCT coordinated by CM. CM will follow and continue to assess for discharge needs.
[2022-11-07] MEDS: levoFLOXacin 750 MG/150 ML BAG 100 MG IVPB (13:12)
--- NOTE | 2022-11-07 16:31 | PGE_ITS ---
Date of Service Date of service: 11/07/22 Time of Service: 16:31 Assessment and Plan Assessment and plan (1) Pneumonia: Status: Acute Assessment and plan: Present on admission. Not better by CXR - in fact, possibly worse. I have changed her abx to levaquin. Sputum culture with yeast - start micafungin. Encourage IS/acapella. (2) Chronic heart failure with preserved ejection fraction: Status: Chronic Assessment and plan: Per echo, LVEF 55%, RVSP 34.3 mmHg, LV and RV are of normal size. Resume diuretics (3) Left lower lobe pulmonary nodule: Status: Acute Assessment and plan: LLL mass which which lit up on PET in 10/24. Palliative care is consulted. It is unclear if this has had follow up. (4) Prediabetes: Status: Chronic Assessment and plan: A1C of 5.7 (5) Hypertension: Status: Chronic Assessment and plan: continue toprol XL, guanfacine with holding parameters, spironolactone. Qualifiers: Hypertension type: essential hypertension Qualified Code(s): I10 - Essential (primary) hypertension (6) CKD (chronic kidney disease) stage 3, GFR 30-59 ml/min: Status: Chronic Assessment and plan: Cr Stable. Continue to monitor with resumption of diuretics (7) Hypothyroid: Status: Chronic Assessment and plan: Continue levothyroxine. (8) DVT prophylaxis: Status: Acute Assessment and plan: enoxaparin SC (9) Discharge planning issues: Status: Acute Assessment and plan: DNR/DNI Followed by PT, palliative care, speech. Not yet ready for discharge Subjective Subjective Interval history since last seen: Ms Thornton states she is feeling well. Denies dizziness, CP, states she is a little short of breath and is coughing. She says I didn't know I was congested, but I am! Denies n/v. Converted to NSR this am. Exam Narrative Exam Narrative: General: Pleasant elderly female who is coughing, A&Ox1-2, sitting comfortably in a chair on RA HEENT: EOMI, MMM Heart: RRR, no m/r/g Lungs: Diminished breath sounds B Abdomen: soft, nontender, nondistended Extremities: trace edema BLEs, symmetric Objective Last Vital Signs Temp 35.7 C L 11/07/22 14:52 Pulse 66 11/07/22 14:52 Resp 20 11/07/22 14:52 BP 146/85 H 11/07/22 14:52 Pulse Ox 99 11/07/22 14:52 Laboratory Results - last 24 hr 11/07/22 11/07/22 06:00 06:00 WBC 14.13 H RBC 3.69 L Hgb 10.7 L Hct 32.8 L MCV 89 MCH 29.0 MCHC 32.6 RDW 15.4 H Plt Count 308 MPV 9.7 Immature Gran % 17.5 Neutrophils % 61.3 Lymphocytes % 13.9 Monocytes % 4.9 Eosinophils % 1.5 Basophils % 0.9 Nucleated RBC % 0.0 Absolute Neutrophils 8.66 H Absolute Lymphocytes 1.96 Absolute Monocytes 0.69 Absolute Eosinophils 0.21 Absolute Basophils 0.13 Sodium 143 Potassium 4.1 Chloride 106 Carbon Dioxide 30.6 Anion Gap 6.4 BUN 24 H Creatinine 1.3 H Est GFR (CKD-EPI 2020) 40.30 Glucose 119 H Calcium 8.5 Time Spent with Patient Time Spent with Patient: 25-34 minutes Time was spent: preparing to see the patient(eg.review tests), obtaining and/or reviewing separately otained hiistory, ordering medications,tests, procedures, referring, communicating with other health insurance healthcare representative, indepentently interpreting results, counseling the patient and care coordination
[2022-11-07] MEDS: Enoxaparin 40 MG/0.4 ML SYR SC (19:20)
[2022-11-07] MEDS: guanFACINE 1 MG TAB PO (21:44)
[2022-11-07] MEDS: LORazepam 0.5 MG TAB PO (22:27)
[2022-11-07 23:18] LABS: Streptococcus Pneumoniae Ag, U Negative (Negative)
[2022-11-08] VITALS (16 sets, daily range): BP systolic 113–159; BP diastolic 69–79; PULSE 52–77; RESP 1–20; TEMP 35.4–36.9; O2SAT 92–99
[2022-11-08] MEDS: Ipratropium 0.5 MG/2.5 ML UPD VIAL UPD ×3 (05:28→18:29)
[2022-11-08] MEDS: Levothyroxine 25 MCG TAB PO (05:32)
[2022-11-08 07:47] LABS: Abs Immature Grans 2.23 10^3/uL (0.0-0.06); HCT 31.2 % (36.0-46.0); HGB 10.3 g/dL (11.2-15.7); MCH 29.5 pg (27.0-33.0); MCV 89 fL (80-95); MPV 10.4 fL (8.0-11.0); Platelet Count 348 10^3/uL (130-400); RBC 3.49 10^6/uL (3.93-5.22); RDW 15.7 % (11.7-14.6); RDW-SD 51.3 fL; WBC 13.74 10^3/uL (4.4-10.8)
[2022-11-08 08:15] LABS: Anion Gap 6.5 mmol/L (3-11); BUN 29 mg/dL (7-18); CO2 29.5 mmol/L (21.0-32.0); CREATININE 1.4 mg/dL (0.55-1.02); Calcium 8.4 mg/dL (8.5-10.1); Chloride 106 mmol/L (98-107); Estimated GFR 36.87 (mL/min/1.73m2); Glucose 98 mg/dL (74-106); Magnesium 2.1 mg/dL (1.8-2.4); Potassium 4.2 mmol/L (3.5-5.1); Sodium 142 mmol/L (136-145)
[2022-11-08] MEDS: Furosemide 20 MG TAB PO (08:24)
[2022-11-08] MEDS: QUEtiapine 50 MG TAB PO ×2 (08:24→19:34)
[2022-11-08] MEDS: Spironolactone 25 MG TAB 12.5 MG PO (08:24)
[2022-11-08 08:25] LABS: Procalcitonin 0.2 ng/mL
[2022-11-08] MEDS: Magnesium Chloride 64 MG TABCR PO ×2 (08:25→19:33)
[2022-11-08] MEDS: Metoprolol 12.5 MG TAB PO ×2 (08:25→14:36)
[2022-11-08] MEDS: guaiFENesin 600 MG TABCR PO ×2 (08:25→19:33)
[2022-11-08] MEDS: Senna TAB 2 TAB PO ×2 (08:26→19:34)
[2022-11-08] MEDS: Polyethylene Glycol 3350 17 GM PACKET PO (08:27)
[2022-11-08 08:37] LABS: Absolute Eosinophil Count 0.41 10^3/uL (0.0-0.7); Absolute Lymphocyte Count 2.34 10^3/uL (1.2-3.4); Absolute Neutrophil Count 8.24 10^3/uL (1.2-6.7); Bands % 2
[2022-11-08 08:38] LABS: Metamyelocytes % 3; Myelocytes % 9
[2022-11-08 08:39] LABS: Diff Comment Manual Differential; RBC Morphology Normal
--- NOTE | 2022-11-08 10:42 | PT.INTREAT ---
PT Notes Visit Reasons: Pneumonia Date: 11/08/22 PRECAUTIONS: Fall, standard, activity as tolerated SUBJECTIVE: Pt seated in recliner when approached for treatment this am, agreeable to therapy. (AM) Pt seated in recliner when approached for therapy this afternoon. (PM) OBJECTIVE: ? PAIN: none reported ? BED MOBILITY/TRANSFERS? Sit-stand: CGA? Stand-sit: CGA ? Bed-Chair: CGA ? Chair-bed: CGA ? GAIT? Assistive Device: FWW? Weight bearing: full Assist: CGA ? Distance:? 150', 150'? (AM) 300' (PM) ? Deviation: Short step height and step length, lateral toe out during stance of Right foot. ? VITALS:? Monitored by nursing staff via telemetry ? THEREX: sit to stand with BUE support/min A 3x, 4x, LAQ 2# ankle weight L/R 1x10, ankle pumps 2# 1x10, seated marching 2# ankle weight x30, seated hip abduction 2# ankle weight 1x10, heel raises w/ 2# ankle weight x10. (AM) ? ASSESSMENT:?Pt able to move more freely than yesterday due to catheter tubing not rubbing on leg. Pt was able to move sputum after ambulating. (AM) Pt. required rest after ambulating 300' this afternoon, chose to not engage in therapeutic exercise due to fatigue. (PM) PLAN: Continue global strengthening per plan of care until patient is medically cleared for discharge. TREATMENT CODE/TIME: 32335 Ther Ex, [id number] Gait Training ( 10:15- 10:50 am- 1:37-2:00 pm)
--- NOTE | 2022-11-08 13:00 | W.PM.PROGNOT ---
Date of Service Date of service: 11/08/22 Time of Service: 13:01 Assessment and Plan Assessment and plan (1) Pneumonia: Status: Acute Assessment and plan: Present on admission. Clinically better on levaquin and micafungin, but I doubt that the josefina in the sputum is the real pathogen. Continue this regimen for now. Encourage IS/acapella. (2) Chronic heart failure with preserved ejection fraction: Status: Chronic Assessment and plan: Per echo, LVEF 55%, RVSP 34.3 mmHg, LV and RV are of normal size. Resume diuretics (3) Left lower lobe pulmonary nodule: Status: Acute Assessment and plan: LLL mass which which lit up on PET in 10/24. Palliative care is consulted and documented that the patient had elected to not have this worked up. (4) Prediabetes: Status: Chronic Assessment and plan: A1C of 5.7 (5) Hypertension: Status: Chronic Assessment and plan: continue toprol XL, guanfacine with holding parameters, spironolactone. Qualifiers: Hypertension type: essential hypertension Qualified Code(s): I10 - Essential (primary) hypertension (6) CKD (chronic kidney disease) stage 3, GFR 30-59 ml/min: Status: Chronic Assessment and plan: Cr Stable. Continue to monitor with resumption of diuretics (7) Hypothyroid: Status: Chronic Assessment and plan: Continue levothyroxine. (8) DVT prophylaxis: Status: Acute Assessment and plan: enoxaparin SC (9) Discharge planning issues: Status: Acute Assessment and plan: DNR/DNI Followed by PT, palliative care, speech. Anticipate discharge to SNF on Friday. Subjective Subjective Interval history since last seen: Ms Thornton states that she is feeling less congested today. She denies dizziness, CP, SOB, cough is better, denies n/v. Exam Narrative Exam Narrative: General: Pleasant elderly female who is coughing, but the cough sounds less wet, A&Ox1-2, sitting comfortably in a chair on RA HEENT: EOMI, MMM Heart: RRR, no m/r/g Lungs: Improved aeration of B lung meehan Abdomen: soft, nontender, nondistended Extremities: trace edema BLEs, symmetric Objective Last Vital Signs Temp 36.4 C L 11/08/22 12:32 Pulse 60 11/08/22 12:32 Resp 19 11/08/22 12:32 BP 124/77 11/08/22 12:32 Pulse Ox 93 11/08/22 12:32 Laboratory Results - last 24 hr 11/04/22 11/08/22 11/08/22 03:00 06:15 06:15 WBC RBC Hgb Hct MCV MCH MCHC RDW Plt Count MPV Immature Gran % Neutrophils % Band Neutrophils % Lymphocytes % Monocytes % Eosinophils % Basophils % Metamyelocytes % Myelocytes % Nucleated RBC % Absolute Neutrophils Absolute Lymphocytes Absolute Monocytes Absolute Eosinophils Absolute Basophils RBC Morphology Sodium 142 Potassium 4.2 Chloride 106 Carbon Dioxide 29.5 Anion Gap 6.5 BUN 29 H Creatinine 1.4 H Est GFR (CKD-EPI 2020) 36.87 Glucose 98 Calcium 8.4 L Magnesium 2.1 Procalcitonin 0.2 Ur Strep pneumoniae Ag Negative 11/08/22 06:15 WBC 13.74 H RBC 3.49 L Hgb 10.3 L Hct 31.2 L MCV 89 MCH 29.5 MCHC 33.0 RDW 15.7 H Plt Count 348 MPV 10.4 Immature Gran % 0.0 Neutrophils % 58.0 Band Neutrophils % 2 Lymphocytes % 17.0 Monocytes % 8.0 Eosinophils % 3.0 Basophils % 0.0 Metamyelocytes % 3 Myelocytes % 9 Nucleated RBC % 0.0 Absolute Neutrophils 8.24 H Absolute Lymphocytes 2.34 Absolute Monocytes 1.10 H Absolute Eosinophils 0.41 Absolute Basophils 0.00 RBC Morphology Normal Sodium Potassium Chloride Carbon Dioxide Anion Gap BUN Creatinine Est GFR (CKD-EPI 2020) Glucose Calcium Magnesium Procalcitonin Ur Strep pneumoniae Ag Time Spent with Patient Time Spent with Patient: 25-34 minutes Time was spent: preparing to see the patient(eg.review tests), obtaining and/or reviewing separately otained hiistory, ordering medications,tests, procedures, referring, communicating with other health director of managed care, indepentently interpreting results, counseling the patient and care coordination
--- NOTE | 2022-11-08 14:54 | CMPROGNOTE_ITS ---
Date of service: 11/08/22 Time of Service: 14:55 Care Management Progress Note Progress Note Text Progress Note Text: S/O: Meredith was sitting up in her chair watching TV when CM met with her. She stated that she is feeling better than when she arrived. Per provider, she is not yet ready for discharge, and will likely remain at [facility] over the weekend. CM reviewed her discharge plan, which will be to return to the [facility] as soon as she is medically cleared, which she is agreeable to. CM will continue to follow. A: Meredith is an 86 year old female admitted to [facility] on 11/03/22 with pneumonia. P: Meredith will discharge back to [facility] when medically cleared. She will follow up with the facility providers and plan of care and transport with her son or via RCT coordinated by CM. CM will follow and continue to assess for discharge needs.
--- NOTE | 2022-11-08 17:36 | SPP_ITS ---
Date of service: 11/08/22 Time of Service: 17:36 Subjective NON-TREATMENT PROGRESS NOTE: SUBJECTIVE/OBJECTIVE: Meredith was contacted during lunchtime but she had already finished eating by the time I arrived shortly after noon. Her family was present again. Family reporting that they had just finished completing her oral care with her after lunch which is part of the oral care recommendations I had previously counseled them on. Per nursing report, there have been no reported incidents of coughing with thin liquids since CUSTOMER ACCOUNT SPECIALIST first saw patient earlier this week. Family with similar reports, though they do note yesterday one incidence of coughing during meal (unable to say if it was with solid vs liquid). They are admittedly not sure if it was related to eating or just her baseline cough in setting of PNA. Goals: Patient will tolerate safest/least restrictive without s/sx aspiration. IN PROGRESS: Soft/Bite Size Solids, Thin Liquids, tolerating recent meals well per nursing and family. Patient/caregiver will be independent with aspiration precautions, diet modifications, and safe swallowing strategies. IN PROGRESS: Family I'ly completing oral care with patient in room after lunch. Family reports they have been looking to my written notes (white board) for reminders on safe eating/drinking strategies. PLAN: CUSTOMER ACCOUNT SPECIALIST will continue to follow patient while admitted until goals met. DISCHARGE: Recommend re-evaluation by CUSTOMER ACCOUNT SPECIALIST at the [facility] once arrived at [facility] in order to establish aspiration precautions and provide education to staff at the [facility]. RECOMMENDATIONS: Diet Texture Modification(s): IDDSI Level(s) SOLIDS 6-Soft & Bite-Sized Solids LIQUIDS 0-Thin Liquids Medication Intake: Whole with 4-Extremely Thick Liquids/Puree Alter medications only as advised by MD or Pharmacist RISK MANAGEMENT: HOB upright as tolerated; upright for all PO intake. Encourage physical mobility as tolerated. Oral hygiene BID/2x per day as well asbefore/after PO intake, using friction with toothbrush on all oral structures as tolerated ? Level of Assistance/Supervision: 1:1 close supervision/assist for all PO intake PO intake only when awake/alert? Strategies/Adaptations/Assistive Equipment: Reduce auditory and/or visual distractions when eating Provide verbal and/or visual cues to use recommended strategies Small sips one at a time Avoid straws Posture/Positioning Needs: Maintain upright position at least 30 minutes after meals Avoid meals/snacks 2-3 hours prior to reclining/sleeping Coding Diagnoses
[2022-11-08] MEDS: Enoxaparin 40 MG/0.4 ML SYR SC (19:33)
[2022-11-08] MEDS: LORazepam 0.5 MG TAB PO (19:34)
[2022-11-09] VITALS (11 sets, daily range): BP systolic 132–179; BP diastolic 75–94; PULSE 56–82; RESP 1–20; TEMP 35.1–36.9; O2SAT 93–98
[2022-11-09] MEDS: Levothyroxine 25 MCG TAB PO (05:27)
[2022-11-09] MEDS: Metoprolol 12.5 MG TAB PO ×3 (05:27→21:42)
[2022-11-09] MEDS: Ipratropium 0.5 MG/2.5 ML UPD VIAL UPD ×3 (05:38→17:51)
[2022-11-09 06:12] LABS: HCT 34.8 % (36.0-46.0); HGB 10.9 g/dL (11.2-15.7); MCH 28.2 pg (27.0-33.0); MCHC 31.3 % (32.0-36.0); MCV 90 fL (80-95); MPV 9.9 fL (8.0-11.0); Platelet Count 333 10^3/uL (130-400); RBC 3.86 10^6/uL (3.93-5.22); RDW 15.5 % (11.7-14.6); RDW-SD 51.7 fL; WBC 11.69 10^3/uL (4.4-10.8)
[2022-11-09 06:34] LABS: Anion Gap 7.2 mmol/L (3-11); BUN 28 mg/dL (7-18); CO2 29.8 mmol/L (21.0-32.0); CREATININE 1.3 mg/dL (0.55-1.02); Calcium 8.5 mg/dL (8.5-10.1); Chloride 106 mmol/L (98-107); Glucose 99 mg/dL (74-106); Magnesium 2.2 mg/dL (1.8-2.4); Potassium 4.9 mmol/L (3.5-5.1); Sodium 143 mmol/L (136-145)
[2022-11-09 06:49] LABS: Absolute Eosinophil Count 0.23 10^3/uL (0.0-0.7); Absolute Lymphocyte Count 1.87 10^3/uL (1.2-3.4); Absolute Monocyte Count 0.58 10^3/uL (0.1-0.8); Absolute Neutrophil Count 8.18 10^3/uL (1.2-6.7); Bands % 1; Diff Comment Manual Differential; Metamyelocytes % 5; Myelocytes % 2
[2022-11-09 06:50] LABS: RBC Morphology Normal
[2022-11-09] MEDS: Magnesium Chloride 64 MG TABCR PO ×2 (07:47→19:18)
[2022-11-09] MEDS: Furosemide 20 MG TAB PO (07:47)
[2022-11-09] MEDS: Senna TAB 2 TAB PO ×2 (07:47→19:19)
[2022-11-09] MEDS: Spironolactone 25 MG TAB 12.5 MG PO (07:47)
[2022-11-09] MEDS: Polyethylene Glycol 3350 17 GM PACKET PO (07:48)
[2022-11-09] MEDS: QUEtiapine 50 MG TAB PO ×2 (07:48→19:19)
[2022-11-09] MEDS: Normal Saline Flush 10 ML SYR IVP (07:48)
[2022-11-09] MEDS: guaiFENesin 600 MG TABCR PO ×2 (07:48→19:19)
--- NOTE | 2022-11-09 09:32 | PT.INTREAT ---
PT Notes Visit Reasons: Pneumonia Inpatient Physical Therapy Treatment Note [facility] Date: 11/09/22 SUBJECTIVE: Pt was at first not wanting to participate in PT, but changed her mind and became willing. OBJECTIVE: Sit-stand: CGA Stand-sit: CGA GAIT Assistive Device: FWW Weight bearing: Ful Assist: CGA/SBA Distance: Small loop and from chair to commode THEREX: LAQx 10, seated marching x 10, hip abd x 10, heel slides x 10, and HR x 10 ASSESSMENT: Pt tolerated today's session fairly well. PLAN: Cont as per PT POC. TREATMENT CODE/TIME: 9:10-9:30-(20) TA
[2022-11-09] MEDS: Normal Saline 500 ML 30 ML IV (12:35)
[2022-11-09] MEDS: levoFLOXacin 750 MG/150 ML BAG 100 MG IVPB (12:40)
--- NOTE | 2022-11-09 14:10 | PGE_ITS ---
Date of Service Date of service: 11/09/22 Time of Service: 14:10 Assessment and Plan Assessment and plan (1) Pneumonia: Status: Acute Assessment and plan: Present on admission. Clinically better on levaquin and micafungin,;doubt that the josefina in the sputum is the real pathogen. Continue this regimen for now. Encourage IS/acapella. (2) Chronic heart failure with preserved ejection fraction: Status: Chronic Assessment and plan: Per echo, LVEF 55%, RVSP 34.3 mmHg, LV and RV are of normal size. Resume diuretics (3) Left lower lobe pulmonary nodule: Status: Acute Assessment and plan: LLL mass which which lit up on PET in 10/24. Palliative care is consulted and documented that the patient had elected to not have this worked up. (4) Prediabetes: Status: Chronic Assessment and plan: A1C of 5.7 (5) Hypertension: Status: Chronic Assessment and plan: continue toprol XL, guanfacine with holding parameters, spironolactone. Qualifiers: Hypertension type: essential hypertension Qualified Code(s): I10 - Es sential (primary) hypertension (6) CKD (chronic kidney disease) stage 3, GFR 30-59 ml/min: Status: Chronic Assessment and plan: Cr Stable. Continue to monitor with resumption of diuretics (7) Hypothyroid: Status: Chronic Assessment and plan: Continue levothyroxine. (8) DVT prophylaxis: Status: Acute Assessment and plan: enoxaparin SC (9) Discharge planning issues: Status: Acute Assessment and plan: DNR/DNI Followed by PT, palliative care, speech. Anticipate discharge to SNF on Friday. Subjective Subjective Patient reports: no new complaints, feels better, tolerating a regular diet and afebrile; denies shortness of breath Exam Narrative Exam Narrative: General: Pleasant elderly female sitting in chair. NAD HEENT: Sclera clear, MMM Heart: RRR, no murmur Lungs: Good air movement throughout. Abdomen: soft, nontender, nondistended Extremities: trace edema BLEs, No c/o calf tenderness. Objective Last Vital Signs Temp 35.1 C L 11/09/22 11:01 Pulse 56 L 11/09/22 11:47 Resp 15 11/09/22 07:50 BP 134/81 11/09/22 11:01 Pulse Ox 95 11/09/22 11:50 Laboratory Results - last 24 hr 11/09/22 11/09/22 05:45 05:45 WBC 11.69 H RBC 3.86 L Hgb 10.9 L Hct 34.8 L MCV 90 MCH 28.2 MCHC 31.3 L RDW 15.5 H Plt Count 333 MPV 9.9 Immature Gran % 0.0 Neutrophils % 69.0 Band Neutrophils % 1 Lymphocytes % 16.0 Monocytes % 5.0 Eosinophils % 2.0 Basophils % 0.0 Metamyelocytes % 5 Myelocytes % 2 Nucleated RBC % 0.0 Absolute Neutrophils 8.18 H Absolute Lymphocytes 1.87 Absolute Monocytes 0.58 Absolute Eosinophils 0.23 Absolute Basophils 0.00 RBC Morphology Normal Sodium 143 Potassium 4.9 Chloride 106 Carbon Dioxide 29.8 Anion Gap 7.2 BUN 28 H Creatinine 1.3 H Est GFR (CKD-EPI 2020) 40.30 Glucose 99 Calcium 8.5 Magnesium 2.2 Time Spent with Patient Time Spent with Patient: 25-34 minutes Time was spent: preparing to see the patient(eg.review tests), obtaining and/or reviewing separately otained hiistory, ordering medications,tests, procedures, referring, communicating with other health healthcare account manager, indepentently interpreting results and counseling the patient
[2022-11-09] MEDS: LORazepam 0.5 MG TAB PO (19:18)
[2022-11-09] MEDS: Enoxaparin 40 MG/0.4 ML SYR SC (19:18)
[2022-11-09] MEDS: guanFACINE 1 MG TAB PO (21:42)
[2022-11-10] VITALS (8 sets, daily range): BP systolic 109–150; BP diastolic 70–83; PULSE 58–75; RESP 1–20; TEMP 35.2–36.3; O2SAT 92–97
[2022-11-10] MEDS: Levothyroxine 25 MCG TAB PO (05:29)
[2022-11-10] MEDS: Metoprolol 12.5 MG TAB PO ×3 (05:29→22:30)
[2022-11-10] MEDS: Ipratropium 0.5 MG/2.5 ML UPD VIAL UPD (05:43)
[2022-11-10] MEDS: Furosemide 20 MG TAB PO (08:25)
[2022-11-10] MEDS: QUEtiapine 50 MG TAB PO ×2 (08:25→20:39)
[2022-11-10] MEDS: Magnesium Chloride 64 MG TABCR PO ×2 (08:25→20:39)
[2022-11-10] MEDS: Polyethylene Glycol 3350 17 GM PACKET PO (08:25)
[2022-11-10] MEDS: Spironolactone 25 MG TAB 12.5 MG PO (08:25)
[2022-11-10] MEDS: guaiFENesin 600 MG TABCR PO ×2 (08:26→20:39)
[2022-11-10] MEDS: Senna TAB 2 TAB PO ×2 (08:26→20:39)
--- NOTE | 2022-11-10 10:37 | PT.INTREAT ---
PT Notes Visit Reasons: Pneumonia Inpatient Physical Therapy Treatment Note [facility] Date: 11/10/22 PRECAUTIONS: OBJECTIVE: Sit-stand: CGA Stand-sit: CGA GAIT Assistive Device: FWW Weight bearing: Full Assist: CGA Distance: Small loop THEREX: LAQ x 10, hip abd x 10, marching x 10, ankle pumps x 10, shoulder circles x 10, rowing x 10 ASSESSMENT: Pt was confused during today's session asking if she was in a hospital. PLAN: Cont as per PT POC as per marcia. TREATMENT CODE/TIME: 8:55-9:10- (15) TA
--- NOTE | 2022-11-10 10:44 | W.PM.PROGNOT ---
Date of Service Date of service: 11/10/22 Time of Service: 10:44 Assessment and Plan Assessment and plan (1) Pneumonia: Status: Acute Assessment and plan: Present on admission. Clinically better on levaquin and micafungin,;doubt that the josefina in the sputum is the real pathogen. Continue this regimen; today is day 7/7 of antibiotics. Encourage IS/acapella. (2) Chronic heart failure with preserved ejection fraction: Status: Chronic Assessment and plan: Per echo, LVEF 55%, RVSP 34.3 mmHg, LV and RV are of normal size. Resume diuretics (3) Left lower lobe pulmonary nodule: Status: Acute Assessment and plan: LLL mass which which lit up on PET in 10/24. Palliative care is consulted and documented that the patient had elected to not have this worked up. (4) Prediabetes: Status: Chronic Assessment and plan: A1C of 5.7 (5) Hypertension: Status: Chronic Assessment and plan: continue toprol XL, guanfacine with holding parameters, spironolactone. Qualifiers: Hypertension type: essential hypertension Qualified Code(s): I10 - Essential (primary) hypertension (6) CKD (chronic kidney disease) stage 3, GFR 30-59 ml/min: Status: Chronic Assessment and plan: Cr Stable. Continue to monitor with resumption of diuretics (7) Hypothyroid: Status: Chronic Assessment and plan: Continue levothyroxine. (8) DVT prophylaxis: Status: Acute Assessment and plan: enoxaparin SC (9) Discharge planning issues: Status: Acute Assessment and plan: DNR/DNI Followed by PT, palliative care, speech. Anticipate discharge to SNF on Friday. Subjective Subjective Patient reports: no new complaints, tolerating a regular diet and afebrile; denies nausea, vomiting or shortness of breath Exam Narrative Exam Narrative: General: Pleasant elderly female sitting in chair. NAD. Conversant. HEENT: Sclera clear, MMM Heart: RRR, no murmur Lungs: Good air movement throughout. Abdomen: soft, nontender, nondistended Extremities: trace edema BLEs, No c/o calf tenderness. Objective Last Vital Signs Temp 36.1 C L 11/10/22 05:36 Pulse 60 11/10/22 05:43 Resp 18 11/10/22 05:43 BP 150/73 H 11/10/22 05:36 Pulse Ox 92 11/10/22 05:43 Time Spent with Patient Time Spent with Patient: <25 minutes Time was spent: preparing to see the patient(eg.review tests), obtaining and/or reviewing separately otained hiistory, ordering medications,tests, procedures, referring, communicating with other health customer care team coach and indepentently interpreting results
[2022-11-10] MEDS: Normal Saline Flush 10 ML SYR IVP (13:42)
[2022-11-10] MEDS: guanFACINE 1 MG TAB PO (20:39)
[2022-11-10] MEDS: Enoxaparin 40 MG/0.4 ML SYR SC (20:39)
[2022-11-11 06:00] VITALS: BP 136/82; PULSE 64; RESP 20; TEMP 36.2; O2SAT 94
[2022-11-11] MEDS: Metoprolol 12.5 MG TAB PO (06:47)
[2022-11-11] MEDS: Levothyroxine 25 MCG TAB PO (06:47)
[2022-11-11 07:19] VITALS: BP 124/77; PULSE 57; RESP 17; TEMP 36.5; O2SAT 94
[2022-11-11] MEDS: Furosemide 20 MG TAB PO (08:09)
[2022-11-11] MEDS: Spironolactone 25 MG TAB 12.5 MG PO (08:09)
[2022-11-11] MEDS: Senna TAB 2 TAB PO (08:09)
[2022-11-11] MEDS: Polyethylene Glycol 3350 17 GM PACKET PO (08:09)
[2022-11-11] MEDS: Magnesium Chloride 64 MG TABCR PO (08:09)
[2022-11-11] MEDS: QUEtiapine 50 MG TAB PO (08:10)
[2022-11-11] MEDS: guaiFENesin 600 MG TABCR PO (08:10)
[2022-11-11 08:54] LABS: Absolute Basophil Count 0.07 10^3/uL (0.0-0.2); Absolute Eosinophil Count 0.12 10^3/uL (0.0-0.7); Absolute Lymphocyte Count 1.86 10^3/uL (1.2-3.4); Absolute Monocyte Count 0.53 10^3/uL (0.1-0.8); Absolute Neutrophil Count 6.73 10^3/uL (1.2-6.7); Basophils % 0.7; Eosinophils % 1.2; HCT 36.6 % (36.0-46.0); HGB 11.7 g/dL (11.2-15.7); Immature Grans % 3.1; Lymphocytes % 19.4; MCH 28.6 pg (27.0-33.0); MCV 90 fL (80-95); Monocytes % 5.5; Neutrophils % 70.1; Platelet Count 409 10^3/uL (130-400); RBC 4.09 10^6/uL (3.93-5.22); RDW 15.5 % (11.7-14.6); RDW-SD 50.4 fL; WBC 9.61 10^3/uL (4.4-10.8)
[2022-11-11 09:04] LABS: Anion Gap 8.4 mmol/L (3-11); BUN 25 mg/dL (7-18); CO2 29.6 mmol/L (21.0-32.0); CREATININE 1.5 mg/dL (0.55-1.02); Chloride 102 mmol/L (98-107); Estimated GFR 33.94 (mL/min/1.73m2); Glucose 141 mg/dL (74-106); Potassium 4.5 mmol/L (3.5-5.1); Sodium 140 mmol/L (136-145)
--- NOTE | 2022-11-11 09:42 | W.PM.DS.N ---
Date of service: 11/11/22 Time of Service: 09:42 DS: Diagnosis Discharge Diagnosis (1) Pneumonia: Status: Acute Asessment and Plan: Antibiotic coverage changed to oral levaquin after initial treatment with Unasyn and azithromycin. Micafungin also initiated d/t josefina in the sputum. However, doubt that josefina was the pathogen causing her pneumonia. She clinically improved and completed a 7 day course of treatment. (2) Chronic heart failure with preserved ejection fraction: Status: Chronic Asessment and Plan: Per? echo, LVEF 55%, RVSP 34.3 mmHg, LV and RV are of normal size. Resumed home lasix and spironolactone 12.5mg daily added. (3) Left lower lobe pulmonary nodule: Status: Acute Asessment and Plan: LLL mass that was previously noted on PET in 10/24. Palliative care consulted and documented that the patient had elected to not have this worked up. (4) Prediabetes: Status: Chronic Asessment and Plan: A1c 5.7. Continue current home diet. (5) Hypertension: Status: Chronic Asessment and Plan: Continue metoprolol XL, guanfacine and newly prescribed spironolactone. (6) CKD (chronic kidney disease) stage 3, GFR 30-59 ml/min: Status: Chronic Asessment and Plan: Creatinine has increased modestly with addition of spironolactone. Monitor as outpt. (7) Hypothyroid: Status: Chronic Asessment and Plan: Continue levothyroxine. (8) Discharge planning issues: Status: Acute Asessment and Plan: Discharging back to her assisted living arrangment at [facility]. Discharge Plan Disposition Patient Disposition: Other Disposition Not Listed Other Facility: Assisted Living at [facility] Condition: Good Discharge Details Reason For Visit: Pneumonia Admit Date/Time: 11/03/22 17:58 Admit Provider: Sravan Reyes Attending Provider: Sravan Reyes Primary Care Provider: Kavon RichardsShawn Hospital Course Hospital Course: 86-year-old female with history hypertension, prediabetes, macular degeneration, generalized anxiety disorder, essential tremor, hypothyroidism, dementia and lacunar strokes who is a resident in the assisted living portion of the [facility] has been ill since last Friday, 5 days ago, with chest congestion and a minimally productive cough.? She was brought in here for further evaluation.? On arrival her oxygen saturation was 94% on room air.? Respirations were nonlabored at 22 breaths/min blood pressure stable at 141/86 but she was tachycardic at 112 bpm.? ED provider ordered routine labs including CBC, CMP, proBNP, blood lactate level, CXR. CXR demonstrated multifocal bilateral consoldiations, and and bilateral pleural effusions (L>R). Labs were remarkable for WBC 24,700 w/ left shift, no anemia, K 3.1, BUN 45, creatinine 1.5, glucose 147, alkaline phosphatase 298 w/ normal bilirubin and transaminases. Pro-BNP 4758, albumin 2.0. Unasyn and azithromycin initiated in the ED See Diagnosis PCP f/u in 1-2 weeks. Home Meds and New Rx's Prescriptions: New polyethylene glycol 3350 17 gram Powder In Packet 17 g PO DAILY PRN PRN (Reason: Constipation) Qty: 0 0RF spironolactone 25 mg Tablet 12.5 mg PO DAILY Qty: 15 0RF Continued sennosides [Senna Lax] 8.6 mg tablet 17.2 mg PO BID Qty: 1 0RF polyethylene glycol 3350 [Miralax] 17 gram/dose powder 17 g PO DAILY nystatin 100,000 unit/gram cream 1 applic topical BID Qty: 30 0RF levothyroxine 25 mcg tablet 25 mcg PO DAILY Qty: 90 4RF acetaminophen 650 mg suppository 650 mg SD Q6H PRN (Reason: fever, mild pain) Qty: 6 0RF Rx Instructions: Hospice Patient metoprolol succinate 25 mg tablet extended release 24 hr 25 mg PO DAILY Qty: 90 4RF guanfacine 1 mg tablet 1 mg PO QHS Qty: 30 2RF quetiapine 50 mg tablet 50 mg PO BID MDD 100 Qty: 180 2RF furosemide 20 mg tablet 20 mg PO 1XD Discharge Instructions Activity:: Activity as Tolerated Equipment/Supplies:: No Equipment Needed Diet:: Resume usual home diet Discharge Orders Discharge Orders: Discharge Order (Routine); Ordered 11/11/22 Ordered By: Reginald Garrett DS: Summary Time Spent with Patient providing and/or coordinating discharge services: Greater than 30 minutes Status at Discharge Functional status at discharge: uses cane/walker Overall status at discharge: patient is progressing back to baseline Mental Status: mental status grossly normal (Has mild - moderate cognitive decline) Speech and Movement: speech clear Mood: congruent mood Affect: normal affect Exam Narrative Exam Narrative: General: Pleasant elderly female sitting in chair. NAD. Conversant. Daughter is present. HEENT: Sclera clear, MMM Heart: RRR, no murmur Lungs: Good air movement throughout. Abdomen: soft, nontender, nondistended Extremities: trace edema BLEs, No c/o calf tenderness. Psych Mental Status: mental status grossly normal (Has mild - moderate cognitive decline) Speech and Movement: speech clear Mood: congruent mood Affect: normal affect DS: Data Vitals/I&O Vitals and I&O: Vital Signs Temperature 36.5 C 11/11/22 07:19 Temperature Source Tympanic 11/11/22 07:19 Pulse 57 L 11/11/22 07:19 Pulse Rhythm Regular 11/11/22 09:25 Pulse 119 H 11/05/22 14:30 Respiratory Rate 17 11/11/22 07:19 Respiratory Effort Normal, Non-Labored 11/11/22 09:25 Respiratory Depth Normal 11/11/22 09:25 Respiratory Pattern Normal 11/11/22 09:25 Blood Pressure 124/77 11/11/22 07:19 Blood Pressure Mean 64 11/05/22 13:39 Blood Pressure Position Supine 11/03/22 23:32 Pulse Oximetry 94 11/11/22 07:19 Oxygen Delivery Method Room Air 11/11/22 07:19 Oxygen Flow Rate 0 11/11/22 07:19 Pain Level 0 11/11/22 07:19 Comment RN informed of abnormal VS 11/09/22 23:22 Intake & Output 11/10/22 11/10/22 11/11/22 11:59 23:59 11:59 Intake Total 250 / 650 400 / 650 Output Total 1700 / 1700 400 / 400 Balance 250 / -1050 -1300 / -1050 -400 / -400 Weight 82 kg Intake: IV 100 / 100 Oral 250 / 550 300 / 550 Output: Urine 1700 / 1700 400 / 400 Other: Urine Color Yellow Yellow Urine Appearance Clear Clear Clear Urine Odor Normal Stool Size Small Stool Characteristics Soft Brown Voiding Methods Bedside Commode Bedside Commode Bedside Commode Data Completed and Pending Labs on day of discharge: Labs from last 24 hours 11/11/22 11/11/22 08:38 08:38 WBC 9.61 RBC 4.09 Hgb 11.7 Hct 36.6 MCV 90 MCH 28.6 MCHC 32.0 RDW 15.5 H Plt Count 409 H MPV 10.0 Immature Gran % 3.1 Neutrophils % 70.1 Lymphocytes % 19.4 Monocytes % 5.5 Eosinophils % 1.2 Basophils % 0.7 Nucleated RBC % 0.0 Absolute Neutrophils 6.73 H Absolute Lymphocytes 1.86 Absolute Monocytes 0.53 Absolute Eosinophils 0.12 Absolute Basophils 0.07 Sodium 140 Potassium 4.5 Chloride 102 Carbon Dioxide 29.6 Anion Gap 8.4 BUN 25 H Creatinine 1.5 H Est GFR (CKD-EPI 2020) 33.94 Glucose 141 H Calcium 9.0 PFSH All Active Problems DNR no code (do not resuscitate) (Acute) Dementia with behavioral disturbance (Acute) Chronic heart failure with preserved ejection fraction (Chronic) Discharge planning issues (Acute) DVT prophylaxis (Acute) Elevated brain natriuretic peptide (BNP) level (Acute) Pneumonia (Acute) Macular degeneration (Acute) Essential tremor (Acute) familial Gait abnormality (Acute) uses a walker when out, balance and shuffling steps Prediabetes (Chronic) 03/26/21- A1c 5.9 [facility] Hypertension (Chronic) Anxiety (Chronic) CKD (chronic kidney disease) stage 3, GFR 30-59 ml/min (Chronic) Hypothyroid (Chronic) 03/26/21- TSH 2.95 [facility]0 WNL Memory changes (Acute) Dyspnea (Acute) Left lower lobe pulmonary nodule (Acute) PET 10/2021: highly metabolically active left lower mass, organizing pneumonia vs. bronchogenic neoplasm, Repeat 2-3 months Stroke (Chronic) Episode of unresponsiveness (Acute) Palliative care patient (Acute) Advanced care planning/counseling discussion (Acute) Onychogryphosis (Acute) Plantar wart, right foot (Acute) Yeast dermatitis (Acute) Medical History Abnormal chest CT Acute infective polyneuritis (~04/03/1966) B12 deficiency Cerebrovascular accident 06/12 CT @ [facility]: SMALL LACUNAR INFARCTS. Incidental findings. Pt. states she is unaware of this dx. 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 states she is unaware of this. Pneumonia (~07/20/18) Prerenal azotemia Surgical History Cholecystectomy (~1991) Fracture, Closed Treatment (04/10/14) LEFT SHOULDER FX AND DISLOCATED Posterior subcapsular age-related cataract, right eye Status post extracapsular cataract extraction of left eye Family History Mother , age 56 Cancer Father , age 76 Heart disease Sister No problems noted. Son No problems noted. Daughter No problems noted. Maternal Grandfather , age 78 No problems noted. Paternal Grandfather , age 62 Stroke Maternal Grandmother , age 89 - Accident No problems noted. Paternal Grandmother , age 68 No problems noted. Social History Smoking/Tobacco Use Status: Never Second Hand Exposure: Yes Smoking risk assessment performed?: Yes Alcohol Intake: never Drug use: Never Substance use type: does not use Counseling given: No Caregiver/Support person: Yes Household members: caregiver Housing: [facility] Communication Needs: Hard of Hearing Do you need help understanding health information?: Always Pets and animals: No Sexually active: No Do you think of yourself as: straight/heterosexual Current gender identity: female What is your relationship status?: How often do you talk on the phone with friends or family?: three or more times per week How often do you get together with friends or relatives?: once per week How often do you attend catholic or orthodoxy services?: 1-3 times per year Do you belong to any clubs or organized social groups?: no Panel score (0-1 are the most socially isolated patients): 1 What type of physical activity do you participate in: walking and weight lifting Duration: < 15 minutes/day Frequency: 1-2 times per week Anai/Oriental Orthodox: Pentecostalism Special anai needs: No Seatbelt use: always Helmet use: No Drive intox or ride w/intox compactor driver: No Do you feel safe at home: Yes Do you feel safe in your relationship?: Yes Time Spent with Patient Time Spent with Patient: <45 minutes Time was spent: preparing to see the patient(eg.review tests), obtaining and/or reviewing separately otained hiistory, referring, communicating with other health healthcare corporate account director, indepentently interpreting results, counseling the patient and care coordination
--- NOTE | 2022-11-11 10:06 | PDOC.CMDIS ---
Date of service: 11/11/22 Time of Service: 10:06 LACE Index Scoring Tool Questions: Length of Stay (in days): 7 - 13 Was the patient admitted via the E.D.?: Yes Comorbidities: Congestive Heart Failure and Liver or Renal Disease E.D. Visits: 0 Answers: Total Score: 13 Risk of Readmission: High Risk Care Management Discharge Plan Reason for Hospitalization: Pneumonia Discharge Plan: Meredith will discharge back to [facility] when medically cleared. She will follow up with the facility providers and her plan of care as prescribed and transport via private vehicle with her daughter. Patient/Family Education Needs: Review discharge instructions, discuss Ask Me Three. Services Needed at Discharge: Group Home Facility (Return to [facility])
[2022-11-11] MEDS: Bacitracin 1 PACKET (10:10)
--- NOTE | 2022-11-11 11:59 | NUR.NOTE ---
attempted to called report for the third time to the [facility] rehab. The rehab will call back for report. Nursing Note:
--- NOTE | 2022-11-12 16:30 | INDS_ITS ---
Date of service: 11/11/22 PT Notes Visit Reasons: Pneumonia Physical Therapy Inpatient Discharge Summary Date: 11/11/2022 Dates of service: 11/04/2022 through 11/10/2022 This is a clinical summary of care provided for the duration of dates listed above. No charge was made in the completion of this documentation. Referring Doctor: Natasha Ruiz MD PT Orders: PT CONSULT: Limited ability Precautions: Fall. Standard. Activity as tolerated. Patient Profile/Admitting Diagnosis:? Meredith is an 86-year-old female admitted to the ED on 11/03/2022 due to worsening cough, shortness of breath, and generalized weakness.? Patient is admitted for management of pneumonia, elevated BNP, CHF with preserved EF, CKD, L LL pulmonary nodule, hypothyroidism,? HTN,? prediabetes. PMHX: All Active Problems?(Updated 11/04/22 @ 00:46 by Sravan Reyes MD) Chronic heart failure with preserved ejection fraction (Chronic) Discharge planning issues (Acute) DVT prophylaxis (Acute) Elevated brain natriuretic peptide (BNP) level (Acute) Pneumonia (Acute) Macular degeneration (Acute) Essential tremor (Acute) familial Gait abnormality (Acute) uses a walker when out, balance and shuffling steps Prediabetes (Acute) 03/26/21- A1c 5.9 [facility] Hypertension (Chronic) Anxiety (Chronic) CKD (chronic kidney disease) stage 3, GFR 30-59 ml/min (Acute) Hypothyroid (Chronic) 03/26/21- TSH 2.95 [facility]0 WNL Memory changes (Acute) Dyspnea (Acute) Left lower lobe pulmonary nodule (Acute) PET 10/2021: highly metabolically active left lower mass, organizing pneumonia vs. bronchogenic neoplasm, Repeat 2-3 months Stroke (Chronic) Episode of unresponsiveness (Acute) Palliative care patient (Acute) Advanced care planning/counseling discussion (Acute) Onychogryphosis (Acute) Plantar wart, right foot (Acute) Yeast dermatitis (Acute) Medical History? Abnormal chest CT Acute infective polyneuritis (~04/03/1966) B12 deficiency Cerebrovascular accident 06/12 CT @ [facility]: SMALL LACUNAR INFARCTS.? Incidental findings. Pt. states she is unaware of this dx. 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 states she is unaware of this. Pneumonia (~07/20/18) Prerenal azotemia Surgical History? Cholecystectomy (~1991) Fracture, Closed Treatment (04/10/14) LEFT SHOULDER FX AND DISLOCATED Posterior subcapsular age-related cataract, right eye Status post extracapsular cataract extraction of left eye Social History/Home Situation: Resident of the [facility] [place].? Ambulatory with 4- wheeled walker at the SNF wit assist of 1. Equipment Owned/DME: 4WW Subjective: NT. See most recent SOFTWARE ENGINEERING ASSOCIATE MANAGER notes. Objective: General Observation: NT. See most recent SOFTWARE ENGINEERING ASSOCIATE MANAGER notes. Mental Status: NT. See most recent SOFTWARE ENGINEERING ASSOCIATE MANAGER notes. Pain: NT. See most recent SOFTWARE ENGINEERING ASSOCIATE MANAGER notes. Vital Signs: NT. See most recent SOFTWARE ENGINEERING ASSOCIATE MANAGER notes. ROM: Right Upper Extremity: ? Shoulder Flexion lacks the last 25% of AROM. Shoulder abduction lacks the last 25% of AROM.? Elbow flexion WFL. Wrist flexion WFL. Functional opening and closing of hand WFL. Left Upper Extremity:? Shoulder Flexion allows up to 60 degrees actively. Shoulder abduction allows up to about 30 degrees. Elbow flexion WFL. Wrist flexion WFL. Functional opening and closing of hand WFL. Right Lower Extremity: Hip flexion WFL. Hip abduction WFL. Knee flexion WFL. Ankle dorsiflexion to neutral only. Ankle plantarflexion WFL. Left Lower Extremity: Hip flexion WFL. Hip abduction WFL. Knee flexion WFL. Ankle dorsiflexion to neutral only. Ankle plantarflexion WFL. Strength: Right Upper Extremity: Shoulder flexors 3-/5. Shoulder abductors 3-/5. Elbow flexors 4-/5. Elbow extensors 4-/5. Cement Boat And Barge Loader strong. Left Upper Extremity: Shoulder flexors 2-/5. Shoulder abductors 2-/5. Elbow flexors 3+/5. Elbow extensors 3+/5. Cement Boat And Barge Loader strong. Right Lower Extremity: Hip flexors 4-/5. Hip abductors 4-/5. Knee flexors 4-/5. Knee extensors 4-/5. Ankle dorsiflexors 4-/5. Ankle plantarflexors 4-/5. Left Lower Extremity: Hip flexors 4-/5. Hip abductors 4-/5. Knee flexors 4-/5. Knee extensors 4-/5. Ankle dorsiflexors 4-/5. Ankle plantarflexors 4-/5. ED MOBILITY/TRANSFERS? Sit-stand: CGA? Stand-sit: CGA ? Bed-Chair: CGA ? Chair-bed: CGA ? GAIT? Assistive Device: FWW? Weight bearing: full Assist: CGA ? Distance:? Up to 300 feet? Deviation: Short step height and step length, lateral toe out during stance of Right foot. ? Balance: Static Sitting: Normal Dynamic Sitting: Good Static Standing: Fair Dynamic Standing: Fair most sit with child's Assessment: Patient requires the assistance of one caregiver and the use of FWW for all mobility ADL performance.? Strength of coughing improved with sitting at edge of bed and after transferring from bed to chair. ? Patient presents with clinical signs and symptoms consistent with current/admitting diagnoses that have resulted to mobility limitations, gait instability, generalized weakness, and overall ADL decline as demonstrated by the following impairment level findings: 1.? Decreased strength to B UE/LE major muscle groups 2.? Impaired standing balance 3.? Impaired activity tolerance 4.? Limitation of joint range of motion in B shoulders (chronic per son and [id number]. 5.? Shortness of breath Impairments are contributing to the following functional limitations: 1.? Decline in bed mobility skills 2.? Decline in transfer skills 3.? Difficulty with ambulation without assistive device and physical assistance 4.? Increased completion time for mobility ADL performance 5.? Increased risk for falls 6.? Difficulty with managing steps alone safely Goals: Goals X1 week 1. Supine-Sit independent NOT MET 2. Sit-Supine independent NOT MET 3. Sit-Stand independent NOT MET 4. Stand-Sit independent with FWW NOT MET 5. Bed-Chair independent with FWW NOT MET 6. Chair-Bed independent with FWW NOT MET 7. Independent gait on level surface with use of FWW for at least 100 feet without report of pain nor dyspnea NOT MET 8. Fair static and dynamic standing balance/tolerance NOT MET DISCHARGE RECOMMENDATIONS: [] ? Home with no services [] [] ? Home with services [specify] [] ? Home with outpatient PT [] [] ? SNF for continued rehabilitation [] [] ? Welding Machine [employer] [facility] [] [] ? SNF versus LTC based on ability to participate and progress [] [X]? Return to SNF when medically cleared by hospitalist.? Continue sub acute rehab at SNF as tolerated. TREATMENT CODE/TIME: RI Thank you for the opportunity to participate in the care of this patient. Jeanette Sevilla PT, DPT, CLT [facility] [place], [place]
== END 2022-11-11 12:08 | disposition other institution (70) | DRG 194 ==
LOC: ER 17:48 → ICU 19:47 → MS 11-05 15:01
PROVIDERS: Family Medicine; Internal Medicine; Admitting Provider Internal Medicine; Emergency Provider Emergency Medicine; PCP Nurse Practitioner Family; Visit Provider Internal Medicine
DX: J18.9 Pneumonia, unspecified organism (principal); F03.918 Unspecified dementia, unspecified severity, with other behavioral disturbance; I50.32 Chronic diastolic (congestive) heart failure; I13.0 Hypertensive heart and chronic kidney disease with heart failure and stage 1 through stage 4 chronic kidney disease, or unspecified chronic kidney disease; R91.1 Solitary pulmonary nodule; R73.03 Prediabetes; N18.30 Chronic kidney disease, stage 3 unspecified; E03.9 Hypothyroidism, unspecified; Z51.5 Encounter for palliative care; Z66 Do not resuscitate; F41.1 Generalized anxiety disorder; H35.30 Unspecified macular degeneration; Z86.73 Personal history of transient ischemic attack (TIA), and cerebral infarction without residual deficits; R00.0 Tachycardia, unspecified; R26.9 Unspecified abnormalities of gait and mobility; E53.8 Deficiency of other specified B group vitamins; D32.0 Benign neoplasm of cerebral meninges; G25.0 Essential tremor
CPT/HCPCS: 36415; 36569; 80048; 80053; 84145; 87040; 87081; 87449; 92610; 93306; 97110; 97116; 97162; 97164; 97530; J1650; 71045; 71046; 81003; 81015; 83036; 83605; 83735; 83880; 85025; 87070; 87205; 87899; 93005; 93010; 94640; 94668; 94760; 99223; 99231; 99232; 99233; 99239; J0295; J0456; J1956; J3480; J3490; J7614; J7620; J7644

== ENCOUNTER 2022-11-26 18:01 | Outpatient (REF) | payer MEDICARE, MEDICAID, SELFPAY ==
[2022-11-26 18:33] LABS: ALT 12 U/L (14-59); AST 12 U/L (15-37); Albumin 3.4 g/dL (3.4-5.0); Alkaline Phosphatase 167 U/L (46-116); BUN 31 mg/dL (7-18); Bilirubin, Total 0.3 mg/dL (0.2-1.0); CREATININE 1.4 mg/dL (0.55-1.02); Calcium 9.4 mg/dL (8.5-10.1); Chloride 104 mmol/L (98-107); Estimated GFR 36.87 (mL/min/1.73m2); Glucose 118 mg/dL (74-106); NT-proBNP 226 pg/mL (<300); Potassium 4.5 mmol/L (3.5-5.1); Sodium 142 mmol/L (136-145); Total Protein 7.7 g/dL (6.4-8.2)
== END 2022-11-26 18:02 | disposition home or self-care (01) ==
LOC: LBN 18:01
PROVIDERS: PCP Nurse Practitioner Family; Visit Provider Nurse Practitioner Gerontology
DX: G89.4 Chronic pain syndrome (principal); I50.9 Heart failure, unspecified
CPT/HCPCS: 80053; 83880

== ENCOUNTER 2022-12-03 01:34 | Outpatient (CLI) | payer MEDICARE, MEDICAID, SELFPAY ==
--- NOTE | 2022-12-03 | DI.RAD_ITS ---
Exam(s) XR CHEST 2V PA LATERAL EXAM: XR CHEST 2V PA LATERAL CLINICAL HISTORY: LLL INFILTRATE F/U IN 3 WKS TECHNIQUE: 2D digital imaging was performed. COMPARISON: CR,XR XR CHEST 2V PA LATERAL from 09/22/2021 CR XR CHEST 1V IN DI DEPT from 01/14/2022 CR,XR XR CHEST 2V PA LATERAL from 11/03/2022 CR XR PORTABLE CHEST AP from 11/07/2022 FINDINGS: HEART: Normal size. Aorta: Not dilated. PULMONARY VASCULATURE: Normal. LUNGS: Significant interval improvement of previously noted bilateral infiltrates. Right-sided infil trates have cleared. There is residual density in the posterior left lower lobe which could represen t residual infiltrate versus scarring. PLEURAL SPACE: No pleural effusion or pneumothorax. BONE:Unremarkable for age. IMPRESSION: Significant improvement previously noted infiltrates. Residual area of infiltrate versus scarring po sterior left lower lobe. DATA REPOSITORY: RADIATION DOSE DELIVERED:
== END 2022-12-03 01:54 ==
LOC: DI 01:37
PROVIDERS: PCP Nurse Practitioner Family; Visit Provider Nurse Practitioner Gerontology
DX: R91.8 Other nonspecific abnormal finding of lung field (principal)
CPT/HCPCS: 71046

== ENCOUNTER 2023-02-21 19:15 | Outpatient (REF) | payer MEDICARE, MEDICAID, SELFPAY ==
[2023-02-21 17:10] LABS: Bilirubin Negative (Negative); Blood Negative (Negative); Clarity Clear (Clear); Glucose Negative (Negative); Ketones Negative (Negative); Leukocyte Esterase Negative (Negative); Nitrite Negative (Negative); Specific Gravity 1.015 (1.005-1.025); Urobilinogen 0.2 mg/dL (Up to 0.2); pH 5.5 (5-8)
== END 2023-02-21 19:16 | disposition home or self-care (01) ==
LOC: LBN 19:15
PROVIDERS: PCP Legal Medicine; Visit Provider Nurse Practitioner Gerontology
DX: R30.0 Dysuria (principal); G89.4 Chronic pain syndrome; R32 Unspecified urinary incontinence; R82.89 Other abnormal findings on cytological and histological examination of urine
CPT/HCPCS: 81003; 87086

== ENCOUNTER 2023-04-01 18:54 | Outpatient (REF) | payer MEDICARE, MEDICAID, SELFPAY ==
[2023-04-01 17:15] LABS: Bilirubin Negative (Negative); Blood Negative (Negative); Clarity Clear (Clear); Glucose Negative (Negative); Ketones Negative (Negative); Leukocyte Esterase Trace (Negative); Nitrite Negative (Negative); Specific Gravity 1.015 (1.005-1.025); Urobilinogen 0.2 mg/dL (Up to 0.2)
[2023-04-01 17:39] LABS: Bacteria Rare HPF (Negative); C & S Indicated? C&S Done As Ordered; Casts 0-2 Hyaline LPF (Negative); Crystals Negative HPF (Negative); Epithelial Cells Moderate HPF (Negative); Mucus Trace (Negative); RBC 0-2 HPF (0-2); WBC 0-2 HPF (0-5)
== END 2023-04-01 18:55 | disposition home or self-care (01) ==
LOC: LBN 18:54
PROVIDERS: PCP Legal Medicine; Visit Provider Nurse Practitioner Gerontology
DX: R53.83 Other fatigue (principal); R41.0 Disorientation, unspecified; R41.9 Unspecified symptoms and signs involving cognitive functions and awareness
CPT/HCPCS: 81003; 81015; 87086

== ENCOUNTER 2023-05-26 21:45 | Outpatient (REF) | payer MEDICARE, MEDICAID, SELFPAY ==
[2023-05-26 21:02] LABS: BUN 45 mg/dL (7-18); CREATININE 1.9 mg/dL (0.55-1.02); Calcium 9.7 mg/dL (8.5-10.1); Chloride 103 mmol/L (98-107); Glucose 104 mg/dL (74-106); Potassium 4.9 mmol/L (3.5-5.1); Sodium 144 mmol/L (136-145); TSH 5.09 uIU/mL (0.36-3.74)
== END 2023-05-26 21:46 | disposition home or self-care (01) ==
LOC: LBN 21:45
PROVIDERS: PCP Legal Medicine; Visit Provider Nurse Practitioner Gerontology
DX: E03.9 Hypothyroidism, unspecified (principal); N18.32 Chronic kidney disease, stage 3b; I13.0 Hypertensive heart and chronic kidney disease with heart failure and stage 1 through stage 4 chronic kidney disease, or unspecified chronic kidney disease
CPT/HCPCS: 80048; 84439; 84443

== ENCOUNTER 2023-07-07 18:22 | Outpatient (REF) | payer MEDICARE, MEDICAID, SELFPAY ==
[2023-07-07 19:01] LABS: Anion Gap 11.2 mmol/L (3-11); BUN 52 mg/dL (7-18); CO2 27.8 mmol/L (21.0-32.0); Calcium 9.8 mg/dL (8.5-10.1); Chloride 103 mmol/L (98-107); Estimated GFR 23.88 (mL/min/1.73m2); Glucose 171 mg/dL (74-106); Potassium 4.8 mmol/L (3.5-5.1); Sodium 142 mmol/L (136-145); TSH (W/Ref FT4) 3.73 uIU/mL (0.36-3.74); Vitamin B12 838 pg/mL (193-986)
== END 2023-07-07 18:23 | disposition home or self-care (01) ==
LOC: LBN 18:22
PROVIDERS: PCP Legal Medicine; Visit Provider Nurse Practitioner Gerontology
DX: I13.0 Hypertensive heart and chronic kidney disease with heart failure and stage 1 through stage 4 chronic kidney disease, or unspecified chronic kidney disease (principal); E03.9 Hypothyroidism, unspecified; I10 Essential (primary) hypertension; R41.9 Unspecified symptoms and signs involving cognitive functions and awareness; F41.8 Other specified anxiety disorders
CPT/HCPCS: 80048; 82607; 84443

== ENCOUNTER 2023-08-17 07:36 | Emergency (ER) | payer MEDICARE, MEDICAID, SELFPAY ==
[2023-08-17] VITALS (12 sets, daily range): BP systolic 166–241; BP diastolic 79–167; PULSE 57–66; RESP 17–37; TEMP 35.4
--- NOTE | 2023-08-17 07:45 | DI.RAD_ITS ---
Exam(s) XR CHEST 2V PA LATERAL EXAM: XR CHEST 2V PA LATERAL CLINICAL HISTORY: ?pneumonia TECHNIQUE: 2D digital imaging was performed of the chest. Two images were obtained. PA and lateral views were obtained. COMPARISON: CR XR CHEST 2V PA LATERAL from 12/03/2022 FINDINGS: MEDIASTINUM: Normal. HEART: Normal. PULMONARY VASCULATURE: Normal. LUNGS: There is a stable opacity in the posterior left lower lobe. The lungs are otherwise clear. PLEURAL SPACE: No pleural effusion or pneumothorax. BONE:Within normal limits for the patient's age. OTHER FINDINGS:Normal. IMPRESSION: No acute pulmonary findings. DATA REPOSITORY: RADIATION DOSE DELIVERED:
--- NOTE | 2023-08-17 07:56 | ED.GENADUL_ITS ---
Discharge Plan Disposition Patient Disposition: Snf Facility(SNF) Condition: Stable Discharge Details Clinical Impression: Generalized body aches Primary Care Provider: Meera Lockett ED Provider: Ben Lockett Home Meds and New Rx's Prescriptions: Continued sennosides [Senna Lax] 8.6 mg tablet 17.2 mg PO BID Qty: 1 0RF polyethylene glycol 3350 [Miralax] 17 gram/dose powder 17 g PO DAILY nystatin 100,000 unit/gram cream 1 applic topical BID Qty: 30 0RF quetiapine 50 mg tablet 25 mg PO BID B-complex with vitamin C Capsule 1 cap PO DAILY metoprolol succinate 25 mg tablet extended release 24 hr 25 mg PO DAILY Qty: 90 4RF levothyroxine 37.5 mcg capsule 37.5 mcg PO DAILY furosemide 20 mg tablet 20 mg PO 1XD Discontinued oseltamivir 30 mg capsule 30 mg PO DAILY No Action acetaminophen 650 mg suppository 650 mg SC Q6H PRN (Reason: fever, mild pain) Qty: 6 0RF Rx Instructions: Hospice Patient guanfacine 1 mg tablet 1 mg PO QHS Qty: 30 2RF spironolactone 25 mg Tablet 12.5 mg PO DAILY Qty: 15 0RF Discharge Instructions Additional Instructions: Your lab work and x-ray did not show concerning findings at this time I would recommend holding on your Tamiflu as this could have been caused by that Follow-up with your primary care provider within 1 to 2 weeks If you feel more ill, or have new symptoms such as high fevers return to the emergency department for reevaluation HPI General Mode of arrival: EMS . Date/Time Provider Initiated Documentation: 08/17/23 07:47 . Information obtained by: patient and EMS . History of Present Illness 87 year old F presents to the emergency department with the chief complaint of Pain in all extremities and shaky, described as moderate, Patient started experiencing this day(s) (1) and it has been constant. No relieving factors improve symptom(s), No exacerbating factors reported . Patient notes denies chest pain and fever/chills. Patient did receive the following treatments prior to arrival, none Related Data Home Medications Medication Instructions Recorded Confirmed acetaminophen 650 mg rectal 650 mg SC Q6H PRN fever, mild pain 01/16/22 08/17/23 suppository #6 supp metoprolol succinate 25 mg 25 mg PO DAILY #90 tabs 02/18/22 08/17/23 tablet,extended release 24 hr guanfacine 1 mg tablet 1 mg PO QHS #30 tabs 04/24/22 08/17/23 sennosides 8.6 mg tablet (Senna 17.2 mg (2 x 8.6 mg) PO BID #1 tab 05/30/22 08/17/23 Lax) nystatin 100,000 unit/gram topical 1 applic topical BID #30 grams 08/23/22 08/17/23 cream polyethylene glycol 3350 17 17 g PO DAILY 09/20/22 08/17/23 gram/dose oral powder (Miralax) furosemide 20 mg tablet 20 mg PO 1XD 11/03/22 08/17/23 spironolactone 25 mg tablet 12.5 mg (1/2 x 25 mg) PO DAILY #15 11/11/22 08/17/23 tabs B-complex with vitamin C 1 cap PO DAILY 02/19/23 08/17/23 quetiapine 50 mg tablet 25 mg PO BID 04/10/23 08/17/23 levothyroxine 37.5 mcg capsule 37.5 mcg PO DAILY 08/17/23 08/17/23 Previous Rx's Medication Instructions Recorded acetaminophen 650 mg rectal 650 mg SC Q6H PRN fever, mild pain 01/16/22 suppository #6 supp metoprolol succinate 25 mg 25 mg PO DAILY #90 tabs 02/18/22 tablet,extended release 24 hr guanfacine 1 mg tablet 1 mg PO QHS #30 tabs 04/24/22 sennosides 8.6 mg tablet (Senna 17.2 mg (2 x 8.6 mg) PO BID #1 tab 05/30/22 Lax) nystatin 100,000 unit/gram topical 1 applic topical BID #30 grams 08/23/22 cream spironolactone 25 mg tablet 12.5 mg (1/2 x 25 mg) PO DAILY #15 11/11/22 tabs Allergies Allergy/AdvReac Type Severity Reaction Status Date / Time amlodipine Allergy Severe Tongue Verified 11/03/22 14:48 swelling Sulfa (Sulfonamide Allergy Unknown rash, sick Verified 11/03/22 14:48 Antibiotics) to stomach General Stated Complaint: GenMedical JENNIFER: 3 Review of Systems All systems reviewed & are unremarkable except as noted in HPI and below Constitutional Constitutional: Denies chills, Denies fever(s) and Denies weakness Cardiovascular Cardiovascular: Denies chest pain and Reports dyspnea Respiratory Respiratory: Reports cough and Reports dyspnea Gastrointestinal Gastrointestinal: Denies abdominal pain, Denies nausea and Denies vomiting Musculoskeletal Musculoskeletal: Denies joint swelling Neurologic Neurologic: Denies weakness Exam Const General: anxious Orientation: alert HENMT Head: normal to inspection Ears: external ears normal General nose exam: external nose normal Mouth: moist mucous membranes Eyes General: appearance normal, both eyes and all related structures Neck Neck: normal visual inspection Resp Effort & Inspection: normal respiratory effort and able to speak in complete sentences Auscultation: clear to auscultation bilaterally Cardio Jugular venous pressure: no JVD Rate: regular rate Heart Sounds: no murmurs GI Palpation: soft and nontender Skin General skin exam: no rashes or lesions noted Neuro General: patient alert and patient oriented x3 Extrem General: normal to inspection Psych Mental Status: mental status grossly normal Course Vital Signs Vital signs: Vital Signs Temperature 35.4 C L 08/17/23 07:35 Pulse 64 08/17/23 07:35 Respiratory Rate 22 08/17/23 07:35 Blood Pressure 180/96 H 08/17/23 07:35 Temperature 35.4 C L 08/17/23 07:35 Temperature Source Temporal Artery Scan 08/17/23 07:35 Pulse 64 08/17/23 07:35 Respiratory Rate 22 08/17/23 07:35 Blood Pressure 180/96 H 08/17/23 07:35 Oxygen Delivery Method Room Air 08/17/23 07:35 Oxygen Flow Rate 0 08/17/23 07:35 Medical Decision Making 87-year-old female with a history of prior CVA, CKD, hypertension, dementia, essential tremor, who comes in with increased tremors in her extremities and stating she feels tingly and some pain in her extremities. She is alert and oriented x 4 on arrival, does have a noticeable facial tremor which is at her baseline per patient, does have tremors of her legs and arms as well. No focal deficits, states there is a flu going around at her assisted and started Tamiflu 2 days ago. She does have a cough and feels short of breath. Vital signs are stable on arrival, mildly hypertensive and sinus on the monitor with rate of 65, no hypoxia. She does appear very anxious, has clear lung sounds, no JVD, no leg swelling or calf tenderness. Given her complaints of cough and shortness of breath will obtain CBC, procalcitonin, Fluvid and chest x-ray. Will also check a CMP for electrolyte abnormalities. Given her anxiety will treat with a low-dose of 0.5 mg Ativan and reassess. Labs and x-ray without significant abnormalities, has chronic CKD and creatinine is at baseline. Patient appears less anxious and feels better after low-dose of Ativan. She has been hypertensive here but apparently has not had her metoprolol in several days for unclear reasons. Given reassuring workup feel she can safely go back to her assisted. Advised to hold her Tamiflu given this could be a reaction to that. Return precautions given Differential Diagnosis Differential Diagnosis: Flu, pneumonia, electrolyte abnormality, anxiety Medical Records Medical records reviewed: Yes I reviewed the patient's medical records. Imaging Data Radiologic Study: Attestation: I personally reviewed and interpreted this imaging study as follows: Imaging: X-Ray Radiologist's impression: IMPRESSION: No consolidation or other acute abnormality in the chest. Lab Data Lab results reviewed: Yes I reviewed the patient's lab results. Quality:SDOH Health Related Social Needs: No Data to Display PFSH All Active Problems (Updated 08/17/23 @ 09:13 by Ben Lockett MD) Generalized body aches (Acute) DNR no code (do not resuscitate) (Acute) Dementia with behavioral disturbance (Acute) Chronic heart failure with preserved ejection fraction (Chronic) Macular degeneration (Acute) Essential tremor (Acute) familial Gait abnormality (Acute) uses a walker when out, balance and shuffling steps Prediabetes (Chronic) 03/26/21- A1c 5.9 [facility] Hypertension (Chronic) Anxiety (Chronic) CKD (chronic kidney disease) stage 3, GFR 30-59 ml/min (Chronic) Hypothyroid (Chronic) 03/26/21- TSH 2.95 [facility]0 WNL Memory changes (Acute) Dyspnea (Acute) Left lower lobe pulmonary nodule (Acute) PET 10/2021: highly metabolically active left lower mass, organizing pneumonia vs. bronchogenic neoplasm, Repeat 2-3 months Stroke (Chronic) Episode of unresponsiveness (Acute) Palliative care patient (Acute) Advanced care planning/counseling discussion (Acute) Onychogryphosis (Acute) Plantar wart, right foot (Acute) Yeast dermatitis (Acute) Medical History Abnormal chest CT Acute infective polyneuritis (~04/03/1966) B12 deficiency Cerebrovascular accident 06/12 CT @ [facility]: SMALL LACUNAR INFARCTS. Incidental findings. Pt. states she is unaware of this dx. 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 states she is unaware of this. Pneumonia (~07/20/18) Prerenal azotemia Surgical History Cholecystectomy (~1991) Fracture, Closed Treatment (04/10/14) LEFT SHOULDER FX AND DISLOCATED Posterior subcapsular age-related cataract, right eye Status post extracapsular cataract extraction of left eye Family History Mother , age 56 Cancer Father , age 76 Heart disease Sister No problems noted. Son No problems noted. Daughter No problems noted. Maternal Grandfather , age 78 No problems noted. Paternal Grandfather , age 62 Stroke Maternal Grandmother , age 89 - Accident No problems noted. Paternal Grandmother , age 68 No problems noted. Social History Smoking/Tobacco Use Status: Never Second Hand Exposure: Yes Smoking risk assessment performed?: Yes Alcohol Intake: never Drug use: Never Substance use type: does not use Counseling given: No Caregiver/Support person: Yes Household members: caregiver Housing: assisted Communication Needs: Hard of Hearing Do you need help understanding health information?: Always Pets and animals: No Sexually active: No Do you think of yourself as: straight/heterosexual Current gender identity: female What is your relationship status?: How often do you talk on the phone with friends or family?: three or more times per week How often do you get together with friends or relatives?: once per week How often do you attend taoism or lutheran services?: 1-3 times per year Do you belong to any clubs or organized social groups?: no Panel score (0-1 are the most socially isolated patients): 1 What type of physical activity do you participate in: walking and weight lifting Duration: < 15 minutes/day Frequency: 1-2 times per week Anai/Temple: Rastafari Special anai needs: No Seatbelt use: always Helmet use: No Drive intox or ride w/intox public transit trolley driver: No Do you feel safe at home: Yes Do you feel safe in your relationship?: Yes
[2023-08-17 08:06] LABS: Abs Immature Grans 0.02 10^3/uL (0.0-0.06); Absolute Basophil Count 0.02 10^3/uL (0.0-0.2); Absolute Lymphocyte Count 1.64 10^3/uL (1.2-3.4); Absolute Monocyte Count 0.34 10^3/uL (0.1-0.8); Absolute Neutrophil Count 3.07 10^3/uL (1.2-6.7); Basophils % 0.4; Eosinophils % 1.9; HCT 42.3 % (36.0-46.0); HGB 13.6 g/dL (11.2-15.7); Immature Grans % 0.4; Lymphocytes % 31.6; MCH 28.6 pg (27.0-33.0); MCHC 32.2 % (32.0-36.0); MCV 89 fL (80-95); MPV 11.6 fL (8.0-11.0); Monocytes % 6.6; Neutrophils % 59.1; Platelet Count 168 10^3/uL (130-400); RBC 4.76 10^6/uL (3.93-5.22); RDW 15.3 % (11.7-14.6); RDW-SD 50.4 fL; WBC 5.19 10^3/uL (4.4-10.8)
[2023-08-17] MEDS: LORazepam 2 MG/ML VIAL 0.5 MG IVP (08:09)
[2023-08-17 08:21] LABS: PTT Activated 31.6 sec (23.6-32.8); Prothrombin Time 10.4 sec (9.1-11.1)
[2023-08-17 08:28] LABS: ALT 15 U/L (14-59); AST 16 U/L (15-37); Albumin 3.7 g/dL (3.4-5.0); Alkaline Phosphatase 187 U/L (46-116); Anion Gap 14.5 mmol/L (3-11); BUN 38 mg/dL (7-18); Bilirubin, Total 0.4 mg/dL (0.2-1.0); CO2 26.5 mmol/L (21.0-32.0); CREATININE 1.6 mg/dL (0.55-1.02); Chloride 103 mmol/L (98-107); Estimated GFR 31.21 (mL/min/1.73m2); Glucose 117 mg/dL (74-106); Magnesium 1.9 mg/dL (1.8-2.4); Potassium 4.4 mmol/L (3.5-5.1); Sodium 144 mmol/L (136-145); Total Protein 8.3 g/dL (6.4-8.2)
[2023-08-17 08:33] LABS: Calcium 10.1 mg/dL (8.5-10.1)
[2023-08-17 08:44] LABS: COVID-19 PCR Negative (Negative); Influenza A PCR Negative (Negative); Influenza B PCR Negative (Negative); RSV PCR Negative (Negative)
[2023-08-17 08:45] LABS: Source Nasopharynx
[2023-08-17 08:50] LABS: Procalcitonin < 0.1 ng/mL
[2023-08-17 08:53] LABS: FREE T4 1.02 ng/dL (0.76-1.46)
--- NOTE | 2023-08-17 09:01 | DI.VRAD_ITS ---
PROCEDURE INFORMATION: Exam: XR Chest Exam date and time: 08/17/2023 8:30 AM Age: 87 years old Clinical indication: Other: ? Pneumonia TECHNIQUE: Imaging protocol: Radiologic exam of the chest. Views: 2 views. COMPARISON: 1. CT CHEST PE CTA 09/23/2021 9:16 AM 2. CR XR CHEST 2V PA LATERAL 12/03/2022 10:50 AM 3. CR XR PORTABLE CHEST AP 11/07/2022 8:51 AM 4. CR XR CHEST 2V PA LATERAL 11/03/2022 3:32 PM FINDINGS: Lungs: Lung volumes are normal and symmetric. Chronic linear scarring is again noted in the left lower lobe. There is no new consolidation. Pulmonary vasculature is normal in caliber. Pleural spaces: Unremarkable. No pleural effusion or pneumothorax. Heart/Mediastinum: Heart size is normal. The thoracic aorta is mildly tortuous, with atherosclerotic mural calcification at the aortic arch. Cardiomediastinal contours are stable. Bones/joints: Degenerative changes. Chronic deformity of the left humeral neck. No acute osseous abnormality. IMPRESSION: No consolidation or other acute abnormality in the chest. Dictated and Authenticated by: Karey Macias MD. Ordering:BERTHA Contreras MD
[2023-08-17] MEDS: Metoprolol CR 25 MG TABCR PO (09:11)
[2023-08-17] MEDS: Furosemide 20 MG TAB PO (09:11)
== END 2023-08-17 10:38 | disposition skilled nursing facility (03) ==
PROVIDERS: Emergency Provider Emergency Medicine; PCP Legal Medicine
DX: R06.02 Shortness of breath (principal); M79.10 Myalgia, unspecified site; G25.0 Essential tremor; I12.9 Hypertensive chronic kidney disease with stage 1 through stage 4 chronic kidney disease, or unspecified chronic kidney disease; N18.9 Chronic kidney disease, unspecified; Z11.52 Encounter for screening for COVID-19; Z86.73 Personal history of transient ischemic attack (TIA), and cerebral infarction without residual deficits
CPT/HCPCS: 36415; 80053; 84145; 87637; 96374; 99284; 71046; 83735; 84439; 84443; 85025; 85610; 85730; J2060

== ENCOUNTER 2023-09-18 10:02 | Inpatient (IN) | payer MEDICARE, MEDICAID, SELFPAY ==
[2023-09-18] VITALS (74 sets, daily range): BP systolic 135–245; BP diastolic 47–126; PULSE 48–73; RESP 10–27; TEMP 35.9–36.7; O2SAT 93–98
--- NOTE | 2023-09-18 10:00 | RT.EKG_ITS ---
APPROVED REPORT Exam: Resting ECG Reason for Exam: altered mental status Patient Location: E HR:57 bpm ECG Measurements Heart Rate 57 AXIS AK 168 P 1 QRSd 94 QRS 31 QT 447 T 88 QTc 436 Conclusion Sinus bradycardia...rate< 60 Nonspecific T abnormalities, lateral leads...T <-0.10mV, I aVL V5 V6 Narrow complex sinus bradycardia at a rate of 57. Normal axis. Intervals within normal limits. Low voltage in limb leads similar to prior dated last year. T wave inversion in aVL similar to prior. No acute ST segment abnormalities. Compared to prior mild anterior ST segment depressions have resol maite.
--- NOTE | 2023-09-18 10:14 | DI.RAD_ITS ---
Exam(s) XR CHEST 1V IN DI DEPT EXAM: XR CHEST 1V IN DI DEPT CLINICAL HISTORY: Acute encephalopathy. TECHNIQUE: 2D digital imaging was performed. COMPARISON: CR XR PORTABLE CHEST AP from 11/07/2022 CR XR CHEST 2V PA LATERAL from 12/03/2022 CR,XR XR CHEST 2V PA LATERAL from 08/17/2023 FINDINGS: Single AP portable view. Heart size is upper normal. The mediastinum is not widened. Mild persistent infiltrate. No pleural effusions. No pulmonary edema. In the left infrahilar regio n. This is an area that previously had larger infiltrate IMPRESSION: Persistent infiltrate left lung but less than previous. No obvious pleural effusions on this single portable AP view. DATA REPOSITORY: RADIATION DOSE DELIVERED:
[2023-09-18 10:23] LABS: Abs Immature Grans 0.03 10^3/uL (0.0-0.06); Absolute Basophil Count 0.02 10^3/uL (0.0-0.2); Absolute Eosinophil Count 0.11 10^3/uL (0.0-0.7); Absolute Lymphocyte Count 1.33 10^3/uL (1.2-3.4); Absolute Monocyte Count 0.37 10^3/uL (0.1-0.8); Absolute Neutrophil Count 4.12 10^3/uL (1.2-6.7); Basophils % 0.3 %; Eosinophils % 1.8 %; HGB 14.3 g/dL (11.2-15.7); Immature Grans % 0.5 %; Lymphocytes % 22.2 %; MCH 28.6 pg (27.0-33.0); MCHC 32.5 % (32.0-36.0); MCV 88 fL (80-95); MPV 11.2 fL (8.0-11.0); Monocytes % 6.2 %; Platelet Count 164 10^3/uL (130-400); RDW 16.1 % (11.7-14.6); WBC 5.98 10^3/uL (4.4-10.8)
--- NOTE | 2023-09-18 10:31 | W.ED.GENAD ---
Discharge Plan Disposition Patient Disposition: Admit to [facility] Discharge Details Clinical Impression: Acute encephalopathy Admit Date/Time: 09/18/23 13:52 Admit Provider: Sravan Reyes Attending Provider: Sravan Reyes Primary Care Provider: Meera Lockett ED Provider: Sylvester Dao Discharge Data Discharge Date/Time-TO BE ENTERED AT DEPARTURE: 09/18/23 16:11 HPI General Date/Time Provider Initiated Documentation: 09/18/23 10:13. HPI Narrative: MDM This is an altered hypertensive but afebrile but not tachycardic 87-year-old DNI DNR female with acute encephalopathy concerning for multiple etiologies. Given hypertension I am concerned for the possibility of intracranial hemorrhage for which patient will go for emergent noncontrast head CT. Patient is following commands and as a result I am not concerned for status epilepticus I do not feel that she requires an EEG. My suspicion is lower for CVA as she does not have any acute neurological deficits though she does not participate in cranial nerve testing so I do not feel that she would be a tPA candidate. No nuchal rigidity to suggest meningitis so I do not feel that the patient requires a lumbar puncture. Patient has not been vomiting however acute electrolyte abnormalities are certainly in the differential. No history of cirrhosis so I did not obtain an ammonia patient is not hypoxic however will obtain a chest x-ray. Her ECG lacks dysrhythmias and ischemia. No pain out of proportion to suggest necrotizing soft tissue infection. [facility] however will obtain salicylates, ethanol, and acetaminophen levels. Pupils are not pinpoint and patient does not have a history of opioid use so my suspicion for opiate toxidrome is low. Patient does have a history of hypothyroidism so we will order a TSH. Patient also reportedly has a history of hypertension but is not on any home antihypertensives. Patient is not flushed to suggest anticholinergic toxidrome. No obviously preceeding URI symptoms nor fevers nor ascending weakness to suggest Guillain-Ruiz?. Not tachycardic so my suspicion is low for sympathomimetic toxidrome. Tardive dyskinesia is certainly a possibility so I ordered the patient for 2 of IV midazolam. I considered sepsis however the patient is not tachycardic hypotensive nor tachypneic so I did not treat empirically with broad-spectrum antibiotics nor check a lactate. Urinary tract infection certainly on the differential so well obtain straight cath urinalysis. No obvious rigidity to suggest neuroleptic malignant syndrome. No clonus to suggest serotonin syndrome. If labs and CT are unremarkable will complete telemetry neuro consult. 10:55 AM Negative ethanol level. CK within normal limits. Mildly elevated TSH. Free T4 pending. No obvious bleed on CT head on my preliminary interpretation. 11 AM Negative salicylate and acetaminophen. Basic metabolic panel showing CKD but no superimposed RAGINI. No acute electrolyte abnormalities. Mildly elevated BUN but not consistent with uremia. 11:[address] reportedly with no acute process. Patient does have a known meningioma unchanged in size. On chest x-ray radiology commented on a persistent but improved left lung infiltrate. Given no hypoxia fevers nor cough will defer treatment for known pneumonia at this point in time. Tele neuro in place. 11:55 AM I spoke with Dr. Harry from [facility] [place]. He did not feel that the patient's symptoms represented an acute CVA nor a seizure. I considered treating the patient with labetalol in the setting of concerns for hypertensive emergency however she is mildly bradycardic with a heart rate of 51 so we will hold labetalol. Will obtain straight cath urinalysis. Neurology advised LFTs and ammonia which I added. Will attempt treatment with 5 mg of hydralazine. Neurology did not feel that the small left frontal meningioma which was unchanged on CT could have caused the patient's symptoms. 12:20 PM Urinalysis negative for UTI. I have paged the hospitalist team with request for hospitalization. Prior episodes with similar symptoms of unresponsiveness. Symtpoms resolved spontaneously in the past. I spoke to patient's daughter Yris by phone ([phone]). She will attempt to come to the hospital on Friday. 12:30 PM LFTs with mildly elevated alkaline phosphatase improved compared to prior. No acute LFT abnormalities. 1:24 PM Reassuring negative ammonia level. I spoke with Dr. Cisneros from the hospitalist team who graciously agreed to accept the patient for hospitalization. 5 PM I spoke with Leonela from the hospitalist team who assessed the patient in the ED. She requested an additional 10 mg of hydralazine which I ordered. Chronic conditions affecting the care of the patient: Dementia History obtained from an outside historian: Paramedics External record review: [facility] [Diagnostic interpretations performed by me: Per my independent interpretation chest x-ray shows: Per my independent interpretation EKG shows: Narrow complex sinus bradycardia at a rate of 57. Normal axis. Intervals within normal limits. Low voltage in limb leads similar to prior dated last year. T wave inversion in aVL similar to prior. No acute ST segment abnormalities. Compared to prior mild anterior ST segment depressions have resolved. ]Medications: 1 mg of midazolam Social determinants of health affecting disposition: N/A Management discussed with: Neurology [facility] Treatment/interventions considered: N/A Response to therapies provided: Improved rhythmic mouth movements status post midazolam. HPI This is a DNI DNR 87-year-old female with a history of dementia arriving to the emergency department via paramedics in the setting of acute encephalopathy. Patient reportedly had a change in mental status at approximately 7 PM last night. Her daughter was notified. Decision was made to keep the patient at her [facility] facility. This morning her symptoms did not improve so she was transported to the emergency department. She had a reassuring normal fingerstick blood glucose at 98. She is normally confused and alert and oriented to person and place but not events. No recent falls. Per paramedics patient has been following commands. At baseline patient is ambulatory. Patient does not participate in history gathering. Exam General: Chronically ill-appearing with rhythmic mouth opening and closing. No obvious tonic-clonic activity. Patient holds her eyes tightly closed. Head: Normocephalic, atraumatic. Eye:[Pupils equal, round reactive to light.] Unable to assess extraocular eye movements. No conjunctival injection. No scleral icterus. Ear, nose, mouth, throat: Handling secretions. Dry mucous membranes. Rhythmic lip smacking. Neck: Trachea midline. No nuchal rigidity. Cardiovascular: Well-perfused distal extremities. Regular rate and rhythm. Respiratory: Nonlabored respiration. Clear lungs bilaterally. Gastrointestinal: Nondistended abdomen. Soft nontender. No rebound. No guarding. Musculoskeletal: No lower extremity pitting edema. Moving all 4 extremities spontaneously. 5 out of 5 bilateral lower extremity strength in dorsi and plantarflexion. Squeezes hands equally with 4-5 strength. No tenderness to bilateral upper and lower extremities. Skin: Normal for age and race, grossly normal temperature and turgor. No acute rash. Neurologic: GCS 9: E2, V2, M5. Unable to complete NIH stroke scale secondary to lack of participation and acute encephalopathy. Related Data Home Medications Medication Instructions Recorded Confirmed acetaminophen 650 mg rectal 650 mg WA Q6H PRN fever, mild pain 01/16/22 09/18/23 suppository #6 supp sennosides 8.6 mg tablet (Senna 17.2 mg (2 x 8.6 mg) PO BID #1 tab 05/30/22 09/18/23 Lax) nystatin 100,000 unit/gram topical 1 applic topical BID #30 grams 08/23/22 09/18/23 cream polyethylene glycol 3350 17 17 g PO DAILY 09/20/22 09/18/23 gram/dose oral powder (Miralax) furosemide 20 mg tablet 20 mg PO 1XD 11/03/22 09/18/23 spironolactone 25 mg tablet 12.5 mg (1/2 x 25 mg) PO DAILY #15 11/11/22 09/18/23 tabs B-complex with vitamin C 1 cap PO DAILY 02/19/23 09/18/23 levothyroxine 25 mcg tablet 37.5 mcg PO DAILY 09/18/23 09/18/23 quetiapine 25 mg tablet 25 mg PO BID 09/18/23 09/18/23 Previous Rx's Medication Instructions Recorded acetaminophen 650 mg rectal 650 mg WA Q6H PRN fever, mild pain 01/16/22 suppository #6 supp sennosides 8.6 mg tablet (Senna 17.2 mg (2 x 8.6 mg) PO BID #1 tab 05/30/22 Lax) nystatin 100,000 unit/gram topical 1 applic topical BID #30 grams 08/23/22 cream spironolactone 25 mg tablet 12.5 mg (1/2 x 25 mg) PO DAILY #15 11/11/22 tabs Allergies Allergy/AdvReac Type Severity Reaction Status Date / Time amlodipine Allergy Severe Tongue Verified 09/18/23 10:16 swelling oseltamivir [From Tamiflu] Allergy Mild rash Unverified 09/18/23 10:16 Sulfa (Sulfonamide Allergy Unknown rash, sick Verified 09/18/23 10:16 Antibiotics) to stomach General Stated Complaint: AMS/LOC JENNIFER: 3 Course Vital Signs Vital signs: Vital Signs Temperature 36.3 C L 09/18/23 10:03 Pulse 60 09/18/23 10:03 Respiratory Rate 18 09/18/23 10:03 Pulse Oximetry 96 09/18/23 10:03 Temperature 36.3 C L 09/18/23 10:03 Temperature Source Temporal Artery Scan 09/18/23 10:03 Pulse 68 09/18/23 10:12 Pulse 57 L 09/18/23 10:12 Respiratory Rate 23 09/18/23 10:12 Respiratory Effort Normal, Non-Labored 09/18/23 10:08 Respiratory Depth Normal 09/18/23 10:08 Respiratory Pattern Normal 09/18/23 10:08 Blood Pressure 182/126 H 09/18/23 10:12 Blood Pressure Mean 147 09/18/23 10:12 Blood Pressure Position Supine 09/18/23 10:08 Pulse Oximetry 98 09/18/23 10:12 Oxygen Delivery Method Room Air 09/18/23 10:08 Oxygen Flow Rate 0 09/18/23 10:03 Lab/Test Results Lab/Test Results: Laboratory Tests Range/Units 09/18/23 10:05 WBC (4.4-10.8) 10^3/uL 5.98 RBC (3.93-5.22) 10^6/uL 5.00 Hgb (11.2-15.7) g/dL 14.3 Hct (36.0-46.0) % 44.0 MCV (80-95) fL 88 MCH (27.0-33.0) pg 28.6 MCHC (32.0-36.0) % 32.5 RDW (11.7-14.6) % 16.1 H Plt Count (130-400) 10^3/uL 164 MPV (8.0-11.0) fL 11.2 H Immature Gran % % 0.5 Neutrophils % % 69.0 Lymphocytes % % 22.2 Monocytes % % 6.2 Eosinophils % % 1.8 Basophils % % 0.3 Nucleated RBC % (0.0-0.3) % 0.0 Absolute Neutrophils (1.2-6.7) 10^3/uL 4.12 Absolute Lymphocytes (1.2-3.4) 10^3/uL 1.33 Absolute Monocytes (0.1-0.8) 10^3/uL 0.37 Absolute Eosinophils (0.0-0.7) 10^3/uL 0.11 Absolute Basophils (0.0-0.2) 10^3/uL 0.02 Medical Decision Making Quality:SDOH Health Related Social Needs: No Data to Display PFSH All Active Problems (Updated 09/18/23 @ 12:08 by Sylvester Dao MD) Acute encephalopathy (Acute) DNR no code (do not resuscitate) (Acute) Dementia with behavioral disturbance (Acute) Chronic heart failure with preserved ejection fraction (Chronic) Macular degeneration (Acute) Essential tremor (Acute) familial Gait abnormality (Acute) uses a walker when out, balance and shuffling steps Prediabetes (Chronic) 03/26/21- A1c 5.9 [facility] Hypertension (Chronic) Anxiety (Chronic) CKD (chronic kidney disease) stage 3, GFR 30-59 ml/min (Chronic) Hypothyroid (Chronic) 03/26/21- TSH 2.95 [facility]0 WNL Memory changes (Acute) Dyspnea (Acute) Left lower lobe pulmonary nodule (Acute) PET 10/2021: highly metabolically active left lower mass, organizing pneumonia vs. bronchogenic neoplasm, Repeat 2-3 months Stroke (Chronic) Episode of unresponsiveness (Acute) Palliative care patient (Acute) Advanced care planning/counseling discussion (Acute) Onychogryphosis (Acute) Plantar wart, right foot (Acute) Yeast dermatitis (Acute) Medical History Abnormal chest CT Acute infective polyneuritis (~04/03/1966) B12 deficiency Cerebrovascular accident 06/12 CT @ [facility]: SMALL LACUNAR INFARCTS. Incidental findings. Pt. states she is unaware of this dx. 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 states she is unaware of this. Pneumonia (~07/20/18) Prerenal azotemia Surgical History Cholecystectomy (~1991) Fracture, Closed Treatment (04/10/14) LEFT SHOULDER FX AND DISLOCATED Posterior subcapsular age-related cataract, right eye Status post extracapsular cataract extraction of left eye Family History Mother , age 56 Cancer Father , age 76 Heart disease Sister No problems noted. Son No problems noted. Daughter No problems noted. Maternal Grandfather , age 78 No problems noted. Paternal Grandfather , age 62 Stroke Maternal Grandmother , age 89 - Accident No problems noted. Paternal Grandmother , age 68 No problems noted. Social History Smoking/Tobacco Use Status: Never Second Hand Exposure: Yes Smoking risk assessment performed?: Yes Alcohol Intake: never Drug use: Never Substance use type: does not use Counseling given: No Caregiver/Support person: Yes Household members: caregiver Housing: half-way Communication Needs: Hard of Hearing Do you need help understanding health information?: Always Pets and animals: No Sexually active: No Do you think of yourself as: straight/heterosexual Current gender identity: female What is your relationship status?: How often do you talk on the phone with friends or family?: three or more times per week How often do you get together with friends or relatives?: once per week How often do you attend episcopalian or sabianist services?: 1-3 times per year Do you belong to any clubs or organized social groups?: no Panel score (0-1 are the most socially isolated patients): 1 What type of physical activity do you participate in: walking and weight lifting Duration: < 15 minutes/day Frequency: 1-2 times per week Anai/Yazdanism: Worship Special anai needs: No Seatbelt use: always Helmet use: No Drive intox or ride w/intox hydraulic lift driver: No Do you feel safe at home: Yes Do you feel safe in your relationship?: Yes
[2023-09-18 10:48] LABS: Creatine Kinase 27 U/L (26-192); TSH (W/Ref FT4) 5.33 uIU/mL (0.36-3.74)
[2023-09-18] MEDS: Normal Saline 500 ML IV (10:49)
--- NOTE | 2023-09-18 10:51 | DI.CT_ITS ---
Exam(s) CT HEAD WO EXAM: CT HEAD WO CLINICAL HISTORY: Acute encephalopathy. TECHNIQUE: Imaging Protocol: Axial computed tomography images with coronal and sagittal reformatted images were created and reviewed COMPARISON: CT CT HEAD - STROKE PROTOCOL from 05/08/[address] BRAIN NECK CTA from 01/14/2022 CR XR CHEST 1V IN DI DEPT from 09/18/2023 FINDINGS: There are no skull fractures. There is no fluid in the visualized paranasal sinuses. There is no evidence of intracranial hemorrhage, new mass effect, or shift of midline structures. Th ere are no extra-axial fluid collections. The ventricles are not enlarged or shifted and there is no blood within the ventricular system nor within the basal cisterns. There is a partially calcified small dural-based probable meningioma in the left frontal lobe, unchan ged from January 2022. Also unchanged from May 2019 CT scan. IMPRESSION: No acute intracranial findings on this noninfused CT scan of the brain. Small left frontal meningioma appears unchanged. No new mass effect. Called by myself to ER physician. RADIATION DOSE DELIVERED: 633.62mGy.cm Total DLP DATA REPOSITORY: All CT scans at this facility are submitted to the National Radiology Data Registry (NRDR) Dose Index Registry (DIR) with the [employer] (ACR). RADIATION OPTIMIZATION: All CT scans at this facility use at least one of these dose optimization te chniques: automated exposure control; mA and/or kV adjustment per patient size (includes targeted exa ms where dose is matched to clinical indication); or iterative reconstruction.
[2023-09-18 10:52] LABS: ETHANOL BLOOD < 3.0 mg/dL (<10)
[2023-09-18 10:54] LABS: Anion Gap 7.7 mmol/L (3-11); BUN 39 mg/dL (7-18); CO2 28.3 mmol/L (21.0-32.0); CREATININE 1.4 mg/dL (0.55-1.02); Calcium 9.8 mg/dL (8.5-10.1); Chloride 105 mmol/L (98-107); Estimated GFR 36.64 (mL/min/1.73m2); Glucose 92 mg/dL (74-106); Potassium 4.6 mmol/L (3.5-5.1); Sodium 141 mmol/L (136-145)
[2023-09-18] MEDS: Midazolam 2 MG/2 ML VIAL 1 MG IVP (10:57)
[2023-09-18 11:01] LABS: Acetaminophen < 2 ug/mL (10-30); Salicylate < 2.8 mg/dL (<2.8)
[2023-09-18 11:09] LABS: FREE T4 0.94 ng/dL (0.76-1.46)
[2023-09-18 12:10] LABS: Bilirubin Negative (Negative); Blood Negative (Negative); Clarity Clear (Clear); Glucose Negative (Negative); Ketones Negative (Negative); Leukocyte Esterase Negative (Negative); Nitrite Negative (Negative); Specific Gravity 1.015 (1.005-1.025); Urobilinogen 0.2 mg/dL (Up to 0.2)
[2023-09-18] MEDS: hydrALAZINE 20 MG/ML VIAL 5 MG IVP (12:17)
[2023-09-18 12:19] LABS: ALT 21 U/L (14-59); AST 20 U/L (15-37); Albumin 3.6 g/dL (3.4-5.0); Alkaline Phosphatase 176 U/L (46-116); Bilirubin, Direct 0.1 mg/dL (0.0-0.2); Bilirubin, Total 0.4 mg/dL (0.2-1.0); Total Protein 8.3 g/dL (6.4-8.2)
[2023-09-18 12:30] LABS: Ammonia 12 umol/L (11-32)
[2023-09-18 15:25] LABS: MRSA PCR Negative (Negative)
[2023-09-18] MEDS: hydrALAZINE 20 MG/ML VIAL 10 MG IVP (15:33)
--- NOTE | 2023-09-18 17:02 | W.PM.HP.N ---
Date of service: 09/18/23 Time of Service: 17:02 Assessment and Plan Assessment and plan (1) Acute encephalopathy: Status: Acute Assessment and plan: Change in mental status noted overnight at the [facility] At baseline since arrival in ED Return to the [facility] tomorrow if continues to be stable (2) Hypothyroid: Status: Chronic Assessment and plan: Continue levothyroxine 37.5 mg daily TSH 5.33 - recommend following and possible change in dosing by provider at the [facility] (3) DVT prophylaxis: Status: Deleted Assessment and plan: Enoxaparin SC (4) Discharge planning issues: Status: Deleted Assessment and plan: patient is DNR/DNI as per her prior wishes and as documented in the chart. She will return to The [facility] when medical stable discussed with Dr Reyes History of Present Illness History of Present Illness Chief Complaint: Change in mental status Narrative: This is an 87-year-old female with a history of dementia who was brought to the emergency department by paramedics due to acute encephalopathy.? She was noted to have a change in mental status around 7 PM the previous night, which did not improve by the morning. The patient's daughter was notified, and the decision was made to keep the patient at [facility] facility initially.? Upon transportation to the ED, the patient's fingerstick blood glucose was normal at 98.? The patient is typically confused but alert and oriented to person and place, not events. There were no recent falls reported. Paramedics noted that the patient was following commands. The patient does not participate in history gathering. Concerns included intracranial hemorrhage due to hypertension, though the patient did not present with acute neurological deficits.? Emergent noncontrast head CT was ordered, which did not show any acute process but revealed an unchanged meningioma. Chest X-ray showed a persistent but improved left lung infiltrate, for which pneumonia treatment was deferred due to the absence of respiratory symptoms. Negative findings included ethanol, salicylate, and acetaminophen levels, as well as normal CK and mildly elevated TSH.? Mildly elevated alkaline phosphatase was noted in LFTs, but there were no acute abnormalities.? Neurology consultation suggested no acute CVA or seizure and advised against attributing symptoms to the known meningioma.? Treatment included midazolam for tardive dyskinesia and hydralazine for concerns of hypertensive emergency, despite the patient's mild bradycardia.? Urinalysis was negative for UTI. The patient's daughter was contacted and planned to visit on Friday. The patient exhibited improved rhythmic mouth movements post-midazolam. Overall, the patient's presentation suggests acute encephalopathy in the setting of dementia, with an extensive diagnostic workup ruling out various etiologies, including acute neurological events and toxic/metabolic disturbances. The patient is placed on observation status on the medical floor.? The patient is DNR/DNI. Review of Systems All systems reviewed & are unremarkable except as noted in HPI and below and Unobtainable due to mental status (from chart review, [place] personnel) PFSH All Active Problems (Updated 09/18/23 @ 12:08 by Sylvester Dao MD) Acute encephalopathy (Acute) DNR no code (do not resuscitate) (Acute) Dementia with behavioral disturbance (Acute) Chronic heart failure with preserved ejection fraction (Chronic) Macular degeneration (Acute) Essential tremor (Acute) familial Gait abnormality (Acute) uses a walker when out, balance and shuffling steps Prediabetes (Chronic) 03/26/21- A1c 5.9 [facility] Hypertension (Chronic) Anxiety (Chronic) CKD (chronic kidney disease) stage 3, GFR 30-59 ml/min (Chronic) Hypothyroid (Chronic) 03/26/21- TSH 2.95 [facility]0 WNL Memory changes (Acute) Dyspnea (Acute) Left lower lobe pulmonary nodule (Acute) PET 10/2021: highly metabolically active left lower mass, organizing pneumonia vs. bronchogenic neoplasm, Repeat 2-3 months Stroke (Chronic) Episode of unresponsiveness (Acute) Palliative care patient (Acute) Advanced care planning/counseling discussion (Acute) Onychogryphosis (Acute) Plantar wart, right foot (Acute) Yeast dermatitis (Acute) Medical History Abnormal chest CT Acute infective polyneuritis (~04/03/1966) B12 deficiency Cerebrovascular accident 06/12 CT @ [facility]: SMALL LACUNAR INFARCTS. Incidental findings. Pt. states she is unaware of this dx. 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 states she is unaware of this. Pneumonia (~07/20/18) Prerenal azotemia Surgical History Cholecystectomy (~1991) Fracture, Closed Treatment (04/10/14) LEFT SHOULDER FX AND DISLOCATED Posterior subcapsular age-related cataract, right eye Status post extracapsular cataract extraction of left eye Family History Mother , age 56 Cancer Father , age 76 Heart disease Sister No problems noted. Son No problems noted. Daughter No problems noted. Maternal Grandfather , age 78 No problems noted. Paternal Grandfather , age 62 Stroke Maternal Grandmother , age 89 - Accident No problems noted. Paternal Grandmother , age 68 No problems noted. Social History Smoking/Tobacco Use Status: Never Second Hand Exposure: Yes Smoking risk assessment performed?: Yes Alcohol Intake: never Drug use: Never Substance use type: does not use Counseling given: No Caregiver/Support person: Yes Household members: caregiver [facility] Communication Needs: Hard of Hearing Do you need help understanding health information?: Always Pets and animals: No Sexually active: No Do you think of yourself as: straight/heterosexual Current gender identity: female What is your relationship status?: How often do you talk on the phone with friends or family?: three or more times per week How often do you get together with friends or relatives?: once per week How often do you attend islam or mormon services?: 1-3 times per year Do you belong to any clubs or organized social groups?: no Panel score (0-1 are the most socially isolated patients): 1 What type of physical activity do you participate in: walking and weight lifting Duration: < 15 minutes/day Frequency: 1-2 times per week Anai/Jewish: Voodoo Special anai needs: No Seatbelt use: always Helmet use: No Drive intox or ride w/intox 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 route driver: No Do you feel safe at home: Yes Do you feel safe in your relationship?: Yes Meds Allergies and Home Medications Allergies Allergy/AdvReac Type Severity Reaction Status Date / Time amlodipine Allergy Severe Tongue Verified 09/18/23 10:16 swelling oseltamivir [From Tamiflu] Allergy Mild rash Unverified 09/18/23 10:16 Sulfa (Sulfonamide Allergy Unknown rash, sick Verified 09/18/23 10:16 Antibiotics) to stomach Home Medications Medication Instructions Recorded Confirmed Type acetaminophen 650 mg rectal 650 mg FL Q6H PRN fever, mild pain 01/16/22 09/18/23 Rx suppository #6 supp sennosides 8.6 mg tablet (Senna 17.2 mg (2 x 8.6 mg) PO BID #1 tab 05/30/22 09/18/23 Rx Lax) nystatin 100,000 unit/gram topical 1 applic topical BID #30 grams 08/23/22 09/18/23 Rx cream polyethylene glycol 3350 17 17 g PO DAILY 09/20/22 09/18/23 History gram/dose oral powder (Miralax) furosemide 20 mg tablet 20 mg PO 1XD 11/03/22 09/18/23 History spironolactone 25 mg tablet 12.5 mg (1/2 x 25 mg) PO DAILY #15 11/11/22 09/18/23 Rx tabs B-complex with vitamin C 1 cap PO DAILY 02/19/23 09/18/23 History levothyroxine 25 mcg tablet 37.5 mcg PO DAILY 09/18/23 09/18/23 History quetiapine 25 mg tablet 25 mg PO BID 09/18/23 09/18/23 History Exam Const General: anxious Orientation: alert HENIL Head: normal to inspection Ears: external ears normal General nose exam: external nose normal Mouth: moist mucous membranes Eyes General: appearance normal, both eyes and all related structures Neck Neck: normal visual inspection Resp Effort & Inspection: normal respiratory effort and able to speak in complete sentences Auscultation: clear to auscultation bilaterally Cardio Jugular venous pressure: no JVD Rate: regular rate Heart Sounds: no murmurs GI Palpation: soft and nontender Skin General skin exam: no rashes or lesions noted Neuro General: patient alert and patient oriented x3 Extrem General: normal to inspection Psych Mental Status: mental status grossly normal Other: some rhythmic movement of the lower jaw noted, similar to lip smacking but not closing her mouth completely Results Labs 09/18/23 10:05 09/18/23 10:05 Labs: Laboratory Results - last 24 hr 09/18/23 09/18/23 09/18/23 10:05 12:05 12:11 WBC 5.98 RBC 5.00 Hgb 14.3 Hct 44.0 MCV 88 MCH 28.6 MCHC 32.5 RDW 16.1 H Plt Count 164 MPV 11.2 H Immature Gran % 0.5 Neutrophils % 69.0 Lymphocytes % 22.2 Monocytes % 6.2 Eosinophils % 1.8 Basophils % 0.3 Nucleated RBC % 0.0 Absolute Neutrophils 4.12 Absolute Lymphocytes 1.33 Absolute Monocytes 0.37 Absolute Eosinophils 0.11 Absolute Basophils 0.02 Sodium 141 Potassium 4.6 Chloride 105 Carbon Dioxide 28.3 Anion Gap 7.7 BUN 39 H Creatinine 1.4 H Est GFR (CKD-EPI 2020) 36.64 Glucose 92 Calcium 9.8 Total Bilirubin 0.4 Conjugated Bilirubin 0.1 AST 20 ALT 21 Alkaline Phosphatase 176 H Ammonia 12 Creatine Kinase 27 Total Protein 8.3 H Albumin 3.6 TSH 5.33 H Free T4 0.94 Urine Color Yellow Urine Clarity Clear Urine pH 7.0 Ur Specific [place] 1.015 Urine Protein Negative Urine Ketones Negative Urine Blood Negative Urine Nitrite Negative Urine Bilirubin Negative Urine Urobilinogen 0.2 Ur Leukocyte Esterase Negative Urine Glucose Negative Salicylates < 2.8 Acetaminophen < 2 Ethyl Alcohol < 3.0 MRSA (TEM-PCR) 09/18/23 14:00 WBC RBC Hgb Hct MCV MCH MCHC RDW Plt Count MPV Immature Gran % Neutrophils % Lymphocytes % Monocytes % Eosinophils % Basophils % Nucleated RBC % Absolute Neutrophils Absolute Lymphocytes Absolute Monocytes Absolute Eosinophils Absolute Basophils Sodium Potassium Chloride Carbon Dioxide Anion Gap BUN Creatinine Est GFR (CKD-EPI 2020) Glucose Calcium Total Bilirubin Conjugated Bilirubin AST ALT Alkaline Phosphatase Ammonia Creatine Kinase Total Protein Albumin TSH Free T4 Urine Color Urine Clarity Urine pH Ur Specific [place] Urine Protein Urine Ketones Urine Blood Urine Nitrite Urine Bilirubin Urine Urobilinogen Ur Leukocyte Esterase Urine Glucose Salicylates Acetaminophen Ethyl Alcohol MRSA (TEM-PCR) Negative Last Vital Signs Temp 35.9 C L 09/18/23 16:44 Pulse 71 09/18/23 16:44 Resp 20 09/18/23 16:44 BP 135/54 L 09/18/23 16:44 Pulse Ox 95 09/18/23 16:44 Time Spent Time spent with Patient: 40-54 minutes Time was spent: preparing to see the patient(eg.review tests), obtaining and/or reviewing separately otained hiistory, ordering medications,tests, procedures, referring, communicating with other health health careers instructor, counseling the patient and care coordination
--- NOTE | 2023-09-18 17:03 | PHA.REVIEW2 ---
Pharmacy Admission Review Admission Clinical Review Admission Pharmacy Review: Acute encephalopathy (Acute) amlodipine Allergy (Severe, Verified 09/18/23 10:16) Tongue swelling oseltamivir [From Tamiflu] Allergy (Mild, Unverified 09/18/23 10:16) rash Sulfa (Sulfonamide Antibiotics) Allergy (Unknown, Verified 09/18/23 10:16) rash, sick to stomach Resuscitation Status DNR/DNI Height 5 ft 2 in Weight 84.912 kg Pharmacy Admission Review Renal Dosing Renal Dosing: BUN 39 mg/dL (7-18) H 09/18/23 10:05 Creatinine 1.4 mg/dL (0.55-1.02) H 09/18/23 10:05 Medications needing adjustments: Intervened (CrCl 29.15 mL/min) List of meds needing interventions: Changed enoxaparin dose from 40mg daily to 30mg daily Anticoagulation Anticoagulation: Hgb 14.3 g/dL (11.2-15.7) 09/18/23 10:05 Hct 44.0 % (36.0-46.0) 09/18/23 10:05 Plt Count 164 10^3/uL (130-400) 09/18/23 10:05 Creatinine 1.4 mg/dL (0.55-1.02) H 09/18/23 10:05 DVT Prophylaxis: Reviewed Medications: Enoxaparin (30mg daily) Relevant Labs Relevant Labs: Sodium 141 mmol/L (136-145) 09/18/23 10:05 Potassium 4.6 mmol/L (3.5-5.1) 09/18/23 10:05 Chloride 105 mmol/L (98-107) 09/18/23 10:05 Electrolytes, C-Reactive P, ESR: Reviewed Cardiac Review Cardiac Review: Blood Pressure 135/54 1644 Blood Pressure 135/54 1625 Blood Pressure 138/47 1607 Blood Pressure 145/54 1546 Blood Pressure 195/67 1537 Blood Pressure 204/77 1531 Blood Pressure 198/88 1517 Blood Pressure 222/68 1501 Blood Pressure 207/71 1446 Blood Pressure 196/84 1444 Blood Pressure 200/76 1431 Blood Pressure 208/77 1417 BP, HR, EF%: Reviewed (BP 135/54, HR WNL) QTc Review QTc: Reviewed (436 from 09/18/23) IV to PO Switch IV Medications: Reviewed Home Meds Home Med List reviewed: Reviewed Current Meds Current Medication Order Review: Reviewed
[2023-09-18] MEDS: Enoxaparin 30 MG/0.3 ML SYR SC (18:04)
[2023-09-19] VITALS (8 sets, daily range): BP systolic 124–222; BP diastolic 55–106; PULSE 67–89; RESP 16–19; TEMP 34.5–36.6; O2SAT 93–97
--- NOTE | 2023-09-19 | DI.MRI_ITS ---
Exam(s) MR BRAIN WO EXAM: MR BRAIN WO CLINICAL HISTORY: altered mental status TECHNIQUE: Multiplanar multisequence MRI of the brain was performed. COMPARISON: CT CT HEAD WO from 09/18/2023 FINDINGS: The examination is limited due to patient motion artifact. VENTRICLES AND EXTRA AXIAL SPACES: Normal in size and morphology for the patient's age. MIDLINE SHIFT: None. CEREBRAL PARENCHYMA: No focus of restricted diffusion to suggest acute infarct. No space-occupying le kevin identified. HEMORRHAGE: None. BRAINSTEM/CEREBELLUM: Normal. CALVARIUM: Normal. VISUALIZED PARANASAL SINUSES/MASTOIDS:Clear. [place]: Normal flow void. PITUITARY GLAND: There is a partially empty sella. OTHER FINDINGS: None. IMPRESSION: 1. The examination is limited due to patient motion artifact. 2. No evidence of an acute infarct. 3. No acute intracranial process. DATA REPOSITORY:
[2023-09-19] MEDS: Lactated Ringers 1,000 ML 85 ML IV (00:34)
[2023-09-19] MEDS: hydrALAZINE 20 MG/ML VIAL 10 MG IVP ×2 (05:35→23:14)
[2023-09-19] MEDS: Levothyroxine 25 MCG TAB 37.5 MCG PO (05:42)
[2023-09-19 07:13] LABS: Abs Immature Grans 0.05 10^3/uL (0.0-0.06); Absolute Basophil Count 0.03 10^3/uL (0.0-0.2); Absolute Eosinophil Count 0.02 10^3/uL (0.0-0.7); Absolute Lymphocyte Count 0.82 10^3/uL (1.2-3.4); Absolute Monocyte Count 0.53 10^3/uL (0.1-0.8); Absolute Neutrophil Count 8.31 10^3/uL (1.2-6.7); Basophils % 0.3 %; Eosinophils % 0.2 %; HGB 14.3 g/dL (11.2-15.7); Immature Grans % 0.5 %; Lymphocytes % 8.4 %; MCH 28.9 pg (27.0-33.0); MCHC 32.5 % (32.0-36.0); MCV 89 fL (80-95); MPV 11.1 fL (8.0-11.0); Monocytes % 5.4 %; Neutrophils % 85.2 %; Platelet Count 189 10^3/uL (130-400); RBC 4.94 10^6/uL (3.93-5.22); RDW 16.5 % (11.7-14.6); RDW-SD 53.4 fL; WBC 9.76 10^3/uL (4.4-10.8)
[2023-09-19 07:27] LABS: Anion Gap 12.6 mmol/L (3-11); BUN 35 mg/dL (7-18); CO2 23.4 mmol/L (21.0-32.0); CREATININE 1.3 mg/dL (0.55-1.02); Calcium 9.7 mg/dL (8.5-10.1); Chloride 106 mmol/L (98-107); Estimated GFR 40.05 (mL/min/1.73m2); Glucose 111 mg/dL (74-106); Potassium 4.7 mmol/L (3.5-5.1); Sodium 142 mmol/L (136-145)
[2023-09-19] MEDS: Nystatin CREAM 30 GM TUBE TP (10:15)
--- NOTE | 2023-09-19 13:08 | INITIAL_ITS ---
Date of service: 09/19/23 Time of Service: 13:08 Care Management Initial Assmt Initial Assessment REASON FOR HOSPITALIZATION:: Hypertension PREVIOUS FUNCTIONAL STATUS/SOCIAL/FAMILY SUPPORTS:: Meredith lives at the [facility]. She is and has two supportive adult children: daughter Yris who lives in [place], [place], and visits often, and son Diego who lives in [place]. Meredith states she is independent with her ADLs at baseline. She uses a walker for am bulatory assistance. She has some baseline confusion but knows the staff at the [facility], eats her meals and is independent with her care. CURRENT FUNCTIONAL STATUS:: Meredith has slept most of the day, she was unable to eat breakfast and has a grant placed for urinary retention. Her daughter will visit her tomorrow, at [facility]. CM spoke with Fidelia at the [facility] who provided Meredith's baseline functioning; CM reviewed with Hospitalist. ADVANCE DIRECTIVES:: DPOA Daughter Yris Has patient been provided with info about the portal/API?: Yes Did the patient sign up for the portal?: Yes CODE STATUS:: DNR/DNI INSURANCE COVERAGE / FINANCIAL ISSUES:: Medicare [employer] supplement CURRENT HOME/COMMUNITY SERVICES/EQUIPMENT:: [facility] PRIMARY CARE PHYSICIAN:: Meera Lockett POTENTIAL DISCHARGE NEEDS:: Coordinated return to [facility], Palliative Consult PATIENT/FAMILY EDUCATION NEEDS:: Review discharge instructions, discuss [facility]. TRANSPORTATION:: W/C van or EMS dependent on mobility. PLAN:: Meredith will return to the [facility] when medically ready, CM following. PFSH All Active Problems (Updated 09/19/23 @ 14:19 by Laxmi Bose NP) Hypertensive urgency (Acute) Discharge planning issues (Acute) DVT prophylaxis (Acute) penitentiary resident (Acute) Acute encephalopathy (Acute) DNR no code (do not resuscitate) (Acute) Dementia with behavioral disturbance (Acute) Chronic heart failure with preserved ejection fraction (Chronic) Macular degeneration (Acute) Essential tremor (Acute) familial Gait abnormality (Acute) uses a walker when out, balance and shuffling steps Prediabetes (Chronic) 03/26/21- A1c 5.9 [facility] Hypertension (Chronic) Anxiety (Chronic) CKD (chronic kidney disease) stage 3, GFR 30-59 ml/min (Chronic) Hypothyroid (Chronic) 03/26/21- TSH 2.95 [facility]0 WNL Memory changes (Acute) Dyspnea (Acute) Left lower lobe pulmonary nodule (Acute) PET 10/2021: highly metabolically active left lower mass, organizing pneumonia vs. 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 Incidental findings. Pt. states she is unaware of this dx. 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 states she is unaware of this. Pneumonia (~07/20/18) Prerenal azotemia Surgical History Cholecystectomy (~1991) Fracture, Closed Treatment (04/10/14) LEFT SHOULDER FX AND DISLOCATED Posterior subcapsular age-related cataract, right eye Status post extracapsular cataract extraction of left eye Family History Mother , age 56 Cancer Father , age 76 Heart disease Sister No problems noted. Son No problems noted. Daughter No problems noted. Maternal Grandfather , age 78 No problems noted. Paternal Grandfather , age 62 Stroke Maternal Grandmother , age 89 - Accident No problems noted. Paternal Grandmother , age 68 No problems noted. Social History Smoking/Tobacco Use Status: Never Second Hand Exposure: Yes Smoking risk assessment performed?: Yes Alcohol Intake: never Drug use: Never Substance use type: does not use Counseling given: No Caregiver/Support person: Yes Household members: caregiver Housing: senior care Communication Needs: Hard of Hearing Do you need help understanding health information?: Always Pets and animals: No Sexually active: No Do you think of yourself as: straight/heterosexual Current gender identity: female What is your relationship status?: How often do you talk on the phone with friends or family?: three or more times per week How often do you get together with friends or relatives?: once per week How often do you attend amish or jain services?: 1-3 times per year Do you belong to any clubs or organized social groups?: no Panel score (0-1 are the most socially isolated patients): 1 What type of physical activity do you participate in: walking and weight lifting Duration: < 15 minutes/day Frequency: 1-2 times per week Anai/Confucianist: Holiness Special anai needs: No Seatbelt use: always Helmet use: No Drive intox or ride w/intox 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: No Do you feel safe at home: Yes Do you feel safe in your relationship?: Yes SDOH(Care Management) Screening Will the Patient Participate in the Screening?: Unable to obtain Do you worry about having a steady place to live?: no Problems where you live: no known problems In the past 12 months, have you had to go without electric, gas, oil or water in your home?: no Have you or anyone in your house had to go without enough food to eat?: no Has lack of transportation kept you from medical appointments or from doing things needed for daily living?: no Has anyone in your support network made you feel unsafe for any reason?: no Social Determinants of Health Comments(SDOH Details): Resides at [facility] and [facility]
--- NOTE | 2023-09-19 14:12 | W.PM.PROGNOT ---
Date of Service Date of service: 09/19/23 Time of Service: 14:12 Assessment and Plan Assessment and plan (1) Acute encephalopathy: Status: Acute Assessment and plan: remains altered from her baseline with no etiology identified yet blood pressure is controlled now with no changes will order MRI (2) Hypertensive urgency: Status: Acute Assessment and plan: now blood pressure is controlled but still remains encephalopathic. continue hydralazine prn sbp > 160 (3) Hypothyroid: Status: Chronic Assessment and plan: Continue levothyroxine 37.5 mg daily TSH 5.33 - recommend following and possible change in dosing by provider at the [facility] (4) DVT prophylaxis: Status: Acute Assessment and plan: Enoxaparin SC (5) Discharge planning issues: Status: Acute Assessment and plan: patient is DNR/DNI as per her prior wishes and as documented in the chart. She will return to [facility] when medical stable discussed with Dr Najera Subjective Subjective Interval history since last seen: Patient still remains altered from her baseline. She is unable to take oral intake not following commands not responding verbally. Her vital signs have remained stable she has been afebrile no vomiting. No rashes or source of infection has been identified. Exam Const Orientation: alert HENME Head: normal to inspection General nose exam: external nose normal Mouth: moist mucous membranes Eyes General: appearance normal, both eyes and all related structures Resp Effort & Inspection: normal respiratory effort Auscultation: clear to auscultation bilaterally Cardio Rate: regular rate GI Palpation: soft and nontender Skin General skin exam: no rashes or lesions noted Extrem General: normal to inspection Psych Mental Status: mental status grossly normal Other: some rhythmic movement of the lower jaw noted, similar to lip smacking but not closing her mouth completely Objective Last Vital Signs Temp 34.5 C L 09/19/23 11:27 Pulse 77 09/19/23 11:27 Resp 17 09/19/23 11:27 BP 135/65 09/19/23 11:27 Pulse Ox 94 09/19/23 11:27 Laboratory Results - last 24 hr 09/18/23 09/19/23 14:00 06:42 WBC 9.76 RBC 4.94 Hgb 14.3 Hct 44.0 MCV 89 MCH 28.9 MCHC 32.5 RDW 16.5 H Plt Count 189 MPV 11.1 H Immature Gran % 0.5 Neutrophils % 85.2 Lymphocytes % 8.4 Monocytes % 5.4 Eosinophils % 0.2 Basophils % 0.3 Nucleated RBC % 0.0 Absolute Neutrophils 8.31 H Absolute Lymphocytes 0.82 L Absolute Monocytes 0.53 Absolute Eosinophils 0.02 Absolute Basophils 0.03 Sodium 142 Potassium 4.7 Chloride 106 Carbon Dioxide 23.4 Anion Gap 12.6 H BUN 35 H Creatinine 1.3 H Est GFR (CKD-EPI 2020) 40.05 Glucose 111 H Calcium 9.7 Magnesium 2.0 MRSA (TEM-PCR) Negative Time Spent with Patient Time Spent with Patient: 35-49 minutes Time was spent: preparing to see the patient(eg.review tests), obtaining and/or reviewing separately otained hiistory, ordering medications,tests, procedures, indepentently interpreting results and counseling the patient
[2023-09-19] MEDS: diazePAM 10 MG/2 ML SYR 5 MG IVP (14:59)
[2023-09-19] MEDS: Enoxaparin 30 MG/0.3 ML SYR SC (18:14)
[2023-09-19] MEDS: Normal Saline 500 ML IV (18:15)
[2023-09-19] MEDS: Normal Saline 1,000 ML 100 ML IV (19:19)
[2023-09-19] MEDS: Acetaminophen 650 MG SUPP PR (23:09)
[2023-09-20 02:54] VITALS: BP 134/52; PULSE 82; RESP 18; TEMP 36.7; O2SAT 91
[2023-09-20] MEDS: Normal Saline 1,000 ML 100 ML IV (05:20)
[2023-09-20 06:37] LABS: Abs Immature Grans 0.07 10^3/uL (0.0-0.06); Absolute Basophil Count 0.02 10^3/uL (0.0-0.2); Absolute Eosinophil Count 0.01 10^3/uL (0.0-0.7); Absolute Lymphocyte Count 0.86 10^3/uL (1.2-3.4); Absolute Monocyte Count 0.67 10^3/uL (0.1-0.8); Absolute Neutrophil Count 8.21 10^3/uL (1.2-6.7); Basophils % 0.2 %; Eosinophils % 0.1 %; HCT 41.5 % (36.0-46.0); HGB 13.4 g/dL (11.2-15.7); Immature Grans % 0.7 %; Lymphocytes % 8.7 %; MCH 28.9 pg (27.0-33.0); MCHC 32.3 % (32.0-36.0); MCV 90 fL (80-95); MPV 11.1 fL (8.0-11.0); Monocytes % 6.8 %; Neutrophils % 83.5 %; Platelet Count 175 10^3/uL (130-400); RBC 4.63 10^6/uL (3.93-5.22); RDW 17.1 % (11.7-14.6); WBC 9.84 10^3/uL (4.4-10.8)
[2023-09-20 06:53] LABS: Anion Gap 12.9 mmol/L (3-11); BUN 36 mg/dL (7-18); CO2 22.1 mmol/L (21.0-32.0); CREATININE 1.3 mg/dL (0.55-1.02); Calcium 9.2 mg/dL (8.5-10.1); Chloride 109 mmol/L (98-107); Estimated GFR 40.05 (mL/min/1.73m2); Glucose 103 mg/dL (74-106); Potassium 4.8 mmol/L (3.5-5.1); Sodium 144 mmol/L (136-145)
[2023-09-20 07:46] VITALS: TEMP 35.5
[2023-09-20 07:48] VITALS: BP 122/63; PULSE 82; RESP 19; TEMP 35.5; O2SAT 94
[2023-09-20] MEDS: Nystatin CREAM 30 GM TUBE TP (08:16)
--- NOTE | 2023-09-20 09:30 | RT.EKG_ITS ---
APPROVED REPORT Exam: Resting ECG Reason for Exam: rhythm change on Tele Patient Location: I HR:76 bpm ECG Measurements Heart Rate 76 AXIS [place] [id number] P [id number] QRSd 68 QRS 14 QT 296 T 79 QTc 333 Conclusion NSR Borderline T wave abnormalities...T/QRS ratio < 1/20 or flat T Minimal ST elevation, inferior leads...ST >0.06mV, II III aVF Artifact in lead(s) I,II,III,aVR,aVL,aVF,V1,V2,V3,V4,V5,V6
[2023-09-20] MEDS: diazePAM 10 MG/2 ML SYR 5 MG IVP (10:24)
[2023-09-20] MEDS: Furosemide 20 MG/2 ML VIAL IVP (10:24)
[2023-09-20] MEDS: Normal Saline Flush 10 ML SYR IVP (10:25)
[2023-09-20 11:24] VITALS: BP 123/60; PULSE 72; RESP 16; TEMP 35.6; O2SAT 92
--- NOTE | 2023-09-20 12:48 | W.PM.PROGNOT ---
Date of Service Date of service: 09/20/23 Time of Service: 12:48 Assessment and Plan Assessment and plan (1) Acute encephalopathy: Status: Resolved Assessment and plan: Now at baseline MRI was unrevealing Continue routine care and monitoring ok to resume home medications, stop IV fluids and initiate diet as tolerated. (2) Hypertensive urgency: Status: Acute Assessment and plan: now blood pressure is controlled but still remains encephalopathic. continue hydralazine prn sbp > 160 (3) Hypothyroid: Status: Chronic Assessment and plan: Continue levothyroxine 37.5 mg daily TSH 5.33 - recommend following and possible change in dosing by provider at the [facility] (4) DVT prophylaxis: Status: Acute Assessment and plan: Enoxaparin SC (5) Discharge planning issues: Status: Acute Assessment and plan: patient is DNR/DNI as per her prior wishes and as documented in the chart. She will return to [facility] Friday if remains medically stable. discussed with Dr Najera Subjective Subjective Interval history since last seen: Patient is now awake alert and at her baseline. Daughter is at her bedside. She is tolerating clear liquids. She did require dose of hydralazine overnight for systolic blood pressure over 200 blood pressures much better controlled this morning at 120 systolic. Exam Const Nutritional Appearance: overweight Orientation: alert and awake (Tracking people in the room following commands daughter states at baseline) [facility] Head: normal to inspection General nose exam: external nose normal Mouth: moist mucous membranes Eyes General: appearance normal, both eyes and all related structures Resp Effort & Inspection: normal respiratory effort Auscultation: clear to auscultation bilaterally Cardio Rate: regular rate GI Palpation: soft and nontender Skin General skin exam: no rashes or lesions noted Extrem General: normal to inspection Objective Last Vital Signs Temp 35.6 C L 09/20/23 11:24 Pulse 72 09/20/23 11:24 Resp 16 09/20/23 11:24 BP 123/60 09/20/23 11:24 Pulse Ox 92 09/20/23 11:24 Laboratory Results - last 24 hr 09/20/23 06:31 WBC 9.84 RBC 4.63 Hgb 13.4 Hct 41.5 MCV 90 MCH 28.9 MCHC 32.3 RDW 17.1 H Plt Count 175 MPV 11.1 H Immature Gran % 0.7 Neutrophils % 83.5 Lymphocytes % 8.7 Monocytes % 6.8 Eosinophils % 0.1 Basophils % 0.2 Nucleated RBC % 0.0 Absolute Neutrophils 8.21 H Absolute Lymphocytes 0.86 L Absolute Monocytes 0.67 Absolute Eosinophils 0.01 Absolute Basophils 0.02 Sodium 144 Potassium 4.8 Chloride 109 H Carbon Dioxide 22.1 Anion Gap 12.9 H BUN 36 H Creatinine 1.3 H Est GFR (CKD-EPI 2020) 40.05 Glucose 103 Calcium 9.2 Time Spent with Patient Time Spent with Patient: 25-34 minutes Time was spent: preparing to see the patient(eg.review tests), obtaining and/or reviewing separately otained hiistory, ordering medications,tests, procedures, indepentently interpreting results and counseling the patient
[2023-09-20 15:17] VITALS: BP 130/78; PULSE 75; RESP 17; TEMP 36.5; O2SAT 92
[2023-09-20 15:29] LABS: Bilirubin Negative (Negative); Blood Trace-intact (Negative); Clarity Sl Cloudy (Clear); Glucose Negative (Negative); Ketones Negative (Negative); Leukocyte Esterase Large (Negative); Nitrite Positive (Negative); Urobilinogen 0.2 mg/dL (Up to 0.2); pH 6.5 (5-8)
[2023-09-20 15:42] LABS: Bacteria Many HPF (Negative); C & S Indicated? Yes; Casts Negative LPF (Negative); Crystals Few Amorphous HPF (Negative); Epithelial Cells Few HPF (Negative); Mucus Trace (Negative); RBC 0-2 HPF (0-2)
[2023-09-20] MEDS: Enoxaparin 30 MG/0.3 ML SYR SC (18:03)
[2023-09-20] MEDS: QUEtiapine 25 MG TAB PO (22:30)
[2023-09-20 23:29] VITALS: PULSE 74; RESP 17; TEMP 35.6; O2SAT 95
[2023-09-21] VITALS (10 sets, daily range): BP systolic 90–208; BP diastolic 45–98; PULSE 55–122; RESP 15–20; TEMP 34.8–36.9; O2SAT 93–96
[2023-09-21] MEDS: hydrALAZINE 20 MG/ML VIAL 10 MG IVP (00:04)
--- NOTE | 2023-09-21 02:15 | RT.EKG_ITS ---
APPROVED REPORT Exam: Resting ECG Reason for Exam: rhythm change Patient Location: I HR:127 bpm ECG Measurements Heart Rate 127 AXIS NM [id number] P [id number] QRSd 91 QRS 25 QT 291 T 223 QTc 424 Conclusion Atrial fibrillation...? atrial activity Repolarization abnormality, prob rate related...ST dep, T neg, tachycardia
[2023-09-21] MEDS: Furosemide 20 MG TAB PO (02:36)
[2023-09-21] MEDS: Metoprolol 5 MG/5 ML VIAL IVP (02:40)
[2023-09-21] MEDS: Metoprolol 12.5 MG TAB PO (03:32)
[2023-09-21] MEDS: Levothyroxine 25 MCG TAB 37.5 MCG PO (05:46)
--- NOTE | 2023-09-21 06:07 | W.EVENT ---
Date of service: 09/21/23 Time of Service: 03:00 Event Note: This is an 87-year-old lady who was admitted with altered mental status and sinus bradycardia but no significant hypotension by documentation to have a TIA or stroke. She ruled out for stroke and has had sinus bradycardia but intermittent episodes of hypertension especially after midnight. He was getting IV hydralazine each night and this persisted last evening. Early after midnight the patient had a sudden change heart rate around 140 with paroxysmal atrial fibrillation manifested. He was not significantly hypotensive and at that continue to be slightly hypertensive with metoprolol 5 mg IV converted to sinus rhythm. He was given 12.5 mg of metoprolol and her blood pressure was adequate with systolic blood pressures above 100 but heart rate dropped to sinus bradycardia. He will be on 12.5 mg of metoprolol twice daily and hydralazine will be used as needed over this last day of observation prior to returning to correction. If echocardiogram with bubble study has not been performed and should be performed prior to discharge back to correction. Anticoagulation should be considered as well with PAF. This may be the cause of her transient neurological symptoms patient will continue telemetry. Patient had no change in clinical status during this episode. Time Spent with Patient Time spent in critical care(minutes): 30 Time Spent Included: Chart review, Documenting critically ill care and Discussing critically ill care with other medical staff
[2023-09-21] MEDS: Polyethylene Glycol 3350 17 GM PACKET PO (09:02)
[2023-09-21] MEDS: Senna TAB 2 TAB PO ×2 (09:02→20:21)
[2023-09-21] MEDS: Vitamins B Comp w/C TAB 1 TAB PO (09:02)
[2023-09-21] MEDS: Spironolactone 25 MG TAB 12.5 MG PO (09:03)
[2023-09-21] MEDS: QUEtiapine 25 MG TAB PO ×2 (09:04→20:21)
[2023-09-21] MEDS: Nystatin CREAM 30 GM TUBE TP ×2 (09:15→20:21)
--- NOTE | 2023-09-21 12:42 | IN_ITS ---
Time of Service: 12:03 PT Notes Visit Reasons: Hypertension Inpatient Physical Therapy Evaluation I certify the need for these services as being medically necessary and skilled as furnished under this plan of treatment while under my care. Please sign and return within 14 days if you agree with the plan of care listed below.? Thank you for this referral! ? Referring Physician? Date Referring Doctor:? Adam Morris PT Orders: PT CONSULT for safety consult for d/c, fall safety assessment Precautions: fall risk Patient Profile/Admitting Diagnosis:? The patient is an 87 yo female adm on 09/18/23 for acute encephalopathy with altered mental status overnight. Past Medical History: DNR no code (do not resuscitate) (Acute) Dementia with behavioral disturbance (Acute) Chronic heart failure with preserved ejection fraction (Chronic) Macular degeneration (Acute) Essential tremor (Acute) familial Gait abnormality (Acute) uses a walker when out, balance and shuffling steps Prediabetes (Chronic) 03/26/21- A1c 5.9 UVMHypertension (Chronic) Anxiety (Chronic) CKD (chronic kidney disease) stage 3, GFR 30-59 ml/min (Chronic) Hypothyroid (Chronic) 03/26/21- TSH 2.95 UVM0 WNL Memory changes (Acute) Dyspnea (Acute) Left lower lobe pulmonary nodule (Acute) PET 10/2021: highly metabolically active left lower mass, organizing pneumonia vs. bronchogenic neoplasm, Repeat 2-3 months Stroke (Chronic) Episode of unresponsiveness (Acute) Palliative care patient (Acute) Advanced care planning/counseling discussion (Acute) Onychogryphosis (Acute) Plantar wart, right foot (Acute) Yeast dermatitis (Acute) Medical History Abnormal chest CT Acute infective polyneuritis (~04/03/1966) B12 deficiency Cerebrovascular accident 06/12 CT @ [facility]: SMALL LACUNAR INFARCTS. Incidental findings. Pt. 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 states she is unaware of this. Pneumonia (~07/20/18) Prerenal azotemia Surgical History Cholecystectomy (~1991) Fracture, Closed Treatment (04/10/14) LEFT SHOULDER FX AND DISLOCATEDPosterior subcapsular age-related cataract, right eye Status post extracapsular cataract extraction of left eye Medications: see chart Social History/Home Situation: Normally lives at the [facility]. Normally is able to walk with her walker Subjective: I need someone to walk near me. Objective: Leaning to left in bed upon arrival. Assist from MANAGER IMAGING to pull down and up depends with min assist at walker from PT for balance. Mental Status: Patient is able to state her first time. Pain: No reports of pain Vital Signs: 8:18 today 90/55 63 bpm. Hypertensive episodes with bradycardia over night. ROM/Strength: Upper extremities: able to move against gravity. Difficulty reaching for walker handles with just verbal cuing and needing tactile cuing to perform Lower extremities: Able to move both LE against gravity and to perform a SLR. Significant encouragement and effort for performance with left LE Sensation: Unable to answer if she has any numbness or tingling. Soft tissue/edema: Bilateral hand bruising from IV placement Bed Mobility: Supine to sit min/mod x 1 with HOB elevated with rail and significant cuing. Transfers: Sit to stand min assist x 1 2x. stand to sit min assist x 1 2x with cuing. attempting vc and tc for hand placement without performance. SPT with walker bed to chair to commode to chair with min assist x 1, assist for walker, cuing and stand by assist of MANAGER IMAGING for two transfers. Gait: N/A Balance: CG/min assist in standing at walker with cuing. [facility] AM-PAC 6 clicks Basic Mobility Inpatient Short Form: Raw Score:?10? CMS Score: 76.75% Informed Consent/Education:? Patient instructed in purpose of PT consult and plan of care and is agreeable Assessment:? Patient is a? 87 year old female adm on for acute encephalopathy with altered mental status who is observed to lean to the left and have more difficulty moving her left LE today; uncertain if this is her baseline.? Patient presents with decreased strength, decreased functional mobility, decreased balance and difficulty with ambulation. The patient would benefit from skilled inpatient services to improve these impairments to maximize function and safety. May benefit from short term PT services upon her return back home. Patient is assessed as:? Low 97435?? History: dementia Examination: see above Presentation: Stable and uncomplicated? Decision Making:? Low (0 history, 1-2 exam, stable/predictable, easy 20) Physical Therapy Goals: 1 week Able to get in/out of bed with supervision only. Able to perform sit to/from stand with supervision only. Able to walk 30 feet with rolling walker with supervision only. Independent with home exercise program Plan of Care/Treatment Plan: 1-2x/day, 7 days/week x 1 week. Plan of care has been reviewed with the VIDEO EDITOR providing the service under Physical Therapy direction. Initiate Physical Therapy intervention for strengthening, bed mobility, transfers, gait, stairs, balance training, use of assistive device. DISCHARGE RECOMMENDATIONS: Billing Charges: Treatment Units Time Duration Manual Therapy(00656) Hands-on techniques to modulate pain increase joint range of motion reduce or eliminate soft tissue swelling, inflammation, or restriction facilitate relaxation and improve contractile and non-contractile tissue extensibility ? ? Therapeutic Procedures (98518) Instruction in therapeutic exercises to develop strength and endurance, range of motion and flexibility. HEP instruction and review: Provided skilled instruction in proper exercise performance: Provided skilled manual cues to facilitate proper muscle recruitment and/or movement pattern Neurological Re-Education(01611) To improve balance, coordination, kinesthetic and proprioceptive sensations. ? ? Ultrasound(48770) To promote healing. ? ? Gait Training(55942) ? ? Therapeutic Activity(13140) Instruction in dynamic activities with one on one patient contact by the provider to improve functional performance as follows: ?2 ?25 Self Care Training(71136) ? ? E-Stim (Attended)(10614) ? ? Low IE(77412) 1 10 Mod IE(77948) ? ? High IE(55584) ? ? Time Coded Treatment Time ? 25 Total Treatment Time ? 35
--- NOTE | 2023-09-21 14:40 | W.PM.PROGNOT ---
Date of Service Date of service: 09/21/23 Time of Service: 14:40 Assessment and Plan Assessment and plan (1) Atrial fibrillation with RVR: Status: Resolved Assessment and plan: noted to be in afib with RVR this morning. (has remote previous history and was on low-dose Metroprolol 12.5 mg daily which needed to be discontinued secondary to bradycardia) received IV lopressor and returned to [facility]. telemetry re-initiated. started on lopressor 12.5 mg po bid. continue to monitor (2) Acute encephalopathy: Status: Resolved Assessment and plan: Now at baseline MRI was unrevealing Continue routine care and monitoring ok to resume home medications, stop IV fluids and initiate diet as tolerated. (3) Hypertensive urgency: Status: Acute Assessment and plan: now blood pressure is low this morning after receiving IV lopressor started on lopressor 12.5 mg bid, continue to closely monitor and adjust as needed. continue hydralazine prn sbp > 160 (4) Hypothyroid: Status: Chronic Assessment and plan: Continue levothyroxine 37.5 mg daily TSH 5.33 - recommend following and possible change in dosing by provider at the [facility] (5) DVT prophylaxis: Status: Acute Assessment and plan: Enoxaparin SC (6) Discharge planning issues: Status: Acute Assessment and plan: patient is DNR/DNI as per her prior wishes and as documented in the chart. She will return to [facility] Friday if remains medically stable. discussed with Dr Najera Subjective Subjective Patient reports: no new complaints, tolerating liquids well, tolerating a regular diet and afebrile; denies shortness of breath Interval history since last seen: Sinus rhythm on the monitor Exam Const Nutritional Appearance: overweight Orientation: alert and awake (Tracking people in the room following commands responding at baseline) [facility] Head: normal to inspection General nose exam: external nose normal Mouth: moist mucous membranes Eyes General: appearance normal, both eyes and all related structures Resp Effort & Inspection: normal respiratory effort Auscultation: clear to auscultation bilaterally Cardio Rate: regular rate Rhythm: regular rhythm GI Palpation: soft and nontender Skin General skin exam: no rashes or lesions noted Extrem General: normal to inspection Objective Last Vital Signs Temp 35.7 C L 09/21/23 08:18 Pulse 63 09/21/23 08:18 Resp 15 09/21/23 08:18 BP 90/55 L 09/21/23 08:18 Pulse Ox 94 09/21/23 08:18 Laboratory Results - last 24 hr 09/20/23 15:20 Urine Color Yellow Urine Clarity Sl Cloudy Urine pH 6.5 Ur Specific [place] 1.020 Urine Protein Negative Urine Ketones Negative Urine Blood Trace-intact H Urine Nitrite Positive H Urine Bilirubin Negative Urine Urobilinogen 0.2 Ur Leukocyte Esterase Large H Urine RBC 0-2 Urine WBC 10-20 H Ur Epithelial Cells Few Urine Crystals Few Amorphous Urine Bacteria Many Urine Casts Negative Urine Mucus Trace Ur Culture Indicated? Yes Urine Glucose Negative Time Spent with Patient Time Spent with Patient: 35-49 minutes Time was spent: preparing to see the patient(eg.review tests), obtaining and/or reviewing separately otained hiistory, ordering medications,tests, procedures, indepentently interpreting results and counseling the patient
[2023-09-21] MEDS: Enoxaparin 30 MG/0.3 ML SYR SC (18:11)
[2023-09-21] MEDS: Metoprolol 25 MG TAB 12.5 MG PO (20:21)
[2023-09-22 03:27] VITALS: BP 143/70; PULSE 62; RESP 19; TEMP 37; O2SAT 95
[2023-09-22] MEDS: Levothyroxine 25 MCG TAB 37.5 MCG PO (05:31)
[2023-09-22 07:35] VITALS: BP 135/95; PULSE 58; RESP 16; TEMP 34.9; O2SAT 97
[2023-09-22] MEDS: Furosemide 20 MG TAB PO (07:53)
[2023-09-22] MEDS: Spironolactone 25 MG TAB 12.5 MG PO (07:54)
[2023-09-22] MEDS: Metoprolol 25 MG TAB 12.5 MG PO (07:54)
[2023-09-22] MEDS: QUEtiapine 25 MG TAB PO (07:55)
[2023-09-22] MEDS: Nystatin CREAM 30 GM TUBE TP (07:56)
[2023-09-22] MEDS: Polyethylene Glycol 3350 17 GM PACKET PO (07:56)
[2023-09-22] MEDS: Senna TAB 2 TAB PO (07:57)
[2023-09-22] MEDS: Vitamins B Comp w/C TAB 1 TAB PO (07:58)
[2023-09-22] MEDS: cefTRIAXone 1 GM/50 ML BAG IVPB (08:47)
--- NOTE | 2023-09-22 10:57 | W.PM.DS.N ---
Date of service: 09/22/23 Time of Service: 10:57 DS: Diagnosis Discharge Diagnosis (1) Atrial fibrillation with RVR: Status: Resolved (2) Acute encephalopathy: Status: Resolved (3) Hypertensive urgency: Status: Acute (4) Hypothyroid: Status: Chronic Discharge Plan Disposition Patient Disposition: [facility] Facility(SNF) Condition: Improving Discharge Details Reason For Visit: Hypertension Admit Date/Time: 09/19/23 13:19 Admit Provider: Sravan Reyes Attending Provider: Sravan Reyes Primary Care Provider: Meera Lockett Hospital Course Hospital Course: this is an 87 year old patient from the [facility], history of dementia, admitted here for altered mental status. She has had similar history in the past that cleared after 3 days with no clear etiology. work up initially negative. she was admitted to med/surg for further monitoring. she was hydrated with IV fluids, blood pressure managed with prn hydralyzine. She did remain altered and did undergo an MRI which showed no acute CVA hemorrhage or intracranial findings to explain her symptoms. After 3 days her symptoms did spontaneously resolved and she returned to her baseline. She began eating and drinking reambulated with physical therapy. She resumed her home medications. Hospital course was complicated with brief episode of A-fib with RVR which responded to 1 dose of Metroprolol. After review of her chart she has had a history of atrial fibrillation she has been started on low-dose beta-andrew 12.5 mg p.o. twice daily her course was also complicated with a catheter associated urinary tract infection growing gram-negative rods she will be discharged home on cefpodoxime while culture ID and sensitivities pending. Outpatient provider to follow-up and adjust medications as needed. She did have a telemetry neuro consultation in the emergency department and recommendations are to consider discontinuing Seroquel. Will defer med changes to primary care stable and ready for discharge back to the [facility] discharge discussed with Dr. Najera Home Meds and New Rx's Prescriptions: New metoprolol tartrate 25 mg Tablet 12.5 mg PO BID Qty: 0 0RF cefpodoxime 200 mg tablet 200 mg PO BID Qty: 14 0RF Rx Instructions: must administer with a meal/food Continued sennosides [Senna Lax] 8.6 mg tablet 17.2 mg PO BID Qty: 1 0RF polyethylene glycol 3350 [Miralax] 17 gram/dose powder 17 g PO DAILY nystatin 100,000 unit/gram cream 1 applic topical BID Qty: 30 0RF B-complex with vitamin C Capsule 1 cap PO DAILY acetaminophen 650 mg suppository [address] Q6H PRN (Reason: fever, mild pain) Qty: 6 0RF Rx Instructions: Hospice Patient levothyroxine 25 mcg tablet 37.5 mcg PO DAILY quetiapine 25 mg tablet 25 mg PO BID furosemide 20 mg tablet 20 mg PO 1XD spironolactone 25 mg Tablet 12.5 mg PO DAILY Qty: 15 0RF Discharge Instructions Instructions: A-fib (Atrial Fibrillation) (DC), Altered Mental Status (ED), Catheter-associated Urinary Tract Infection (DC) Referrals: Meera Lockett [Primary Care Provider] - Activity:: Activity as Tolerated Equipment/Supplies:: No Equipment Needed Diet:: As Tolerated Discharge Orders Discharge Orders: Discharge Order (Routine); Ordered 09/22/23 Ordered By: Laxmi Bose DS: Summary Time Spent with Patient providing and/or coordinating discharge services: Greater than 30 minutes Status at Discharge Functional status at discharge: uses cane/walker Overall status at discharge: patient is back to baseline Mental Status: other (Demented at baseline) Speech and Movement: other Mood: other (Demented at baseline) Affect: normal affect Quality:SDOH Health Related Social Needs: No Data to Display Exam Const General: cooperative, comfortable and no acute distress Nutritional Appearance: overweight Orientation: alert and awake (Tracking people in the room following commands responding at baseline) HENMT Head: normal to inspection General nose exam: external nose normal Mouth: moist mucous membranes Eyes General: appearance normal, both eyes and all related structures Neck Neck: normal visual inspection and full ROM Resp Effort & Inspection: normal respiratory effort Auscultation: clear to auscultation bilaterally Cardio Rate: regular rate and bradycardic Rhythm: regular rhythm and other GI Palpation: soft and nontender Skin General skin exam: no rashes or lesions noted Neuro General: patient alert and patient awake Extrem General: normal to inspection and full ROM Psych Mental Status: other (Demented at baseline) Speech and Movement: other Mood: other (Demented at baseline) Affect: normal affect Attitude: cooperative Thought Process: other (Demented) DS: Data Vitals/I&O Vitals and I&O: Vital Signs Temperature 34.9 C L 05/20/24 07:35 Temperature Source Tympanic 09/22/23 07:35 Pulse 58 L 09/22/23 07:35 Pulse Rhythm Regular 09/22/23 08:15 Pulse 68 09/18/23 15:50 Respiratory Rate 16 09/22/23 07:35 Respiratory Effort Normal, Non-Labored 09/22/23 08:15 Respiratory Depth Normal 09/22/23 08:15 Respiratory Pattern Normal 09/22/23 08:15 Blood Pressure 135/95 H 09/22/23 07:35 Blood Pressure Mean 86 09/18/23 15:46 Blood Pressure Position Supine 09/18/23 10:08 Pulse Oximetry 97 09/22/23 07:35 Respiratory End-tidal CO2 09/18/23 15:50 Oxygen Delivery Method Room Air 09/22/23 07:35 Oxygen Flow Rate 0 09/22/23 07:35 Pain Level 0 09/22/23 07:35 Comment RN notified of bp 09/19/23 07:42 Intake & Output 09/21/23 09/21/23 09/22/23 11:59 23:59 11:59 Intake Total 200 / 450 250 / 450 Output Total 550 / 950 400 / 950 350 / 350 Balance -350 / -500 -150 / -500 -350 / -350 Intake: Oral 200 / 450 250 / 450 Output: Urine 550 / 950 400 / 950 350 / 350 Other: Urine Color Yellow Yellow Yellow Urine Appearance Clear Clear Clear Sediment Stool Size Small Stool Characteristics Soft Brown Data Completed and Pending Labs on day of discharge: Preliminary micro results at discharge 09/20/23 15:20 Urine Culture - Preliminary Urine - Reflex from Ua Gram Negative Kvng Gram Positive Judie,Mixed PFSH All Active Problems (Updated 09/21/23 @ 14:44 by Laxmi Bose NP) Hypertensive urgency (Acute) Discharge planning issues (Acute) DVT prophylaxis (Acute) longterm resident (Acute) DNR no code (do not resuscitate) (Acute) Dementia with behavioral disturbance (Acute) Chronic heart failure with preserved ejection fraction (Chronic) Macular degeneration (Acute) Essential tremor (Acute) familial Gait abnormality (Acute) uses a walker when out, balance and shuffling steps Prediabetes (Chronic) 03/26/21- A1c 5.9 [facility] Hypertension (Chronic) Anxiety (Chronic) CKD (chronic kidney disease) stage 3, GFR 30-59 ml/min (Chronic) Hypothyroid (Chronic) 03/26/21- TSH 2.95 [facility]0 WNL Memory changes (Acute) Dyspnea (Acute) Left lower lobe pulmonary nodule (Acute) PET 10/2021: highly metabolically active left lower mass, organizing pneumonia vs. bronchogenic neoplasm, Repeat 2-3 months Stroke (Chronic) Episode of unresponsiveness (Acute) Palliative care patient (Acute) Advanced care planning/counseling discussion (Acute) Onychogryphosis (Acute) Plantar wart, right foot (Acute) Yeast dermatitis (Acute) Medical History Abnormal chest CT Acute infective polyneuritis (~04/03/1966) B12 deficiency Cerebrovascular accident 06/12 CT @ [facility]: SMALL LACUNAR INFARCTS. Incidental findings. Pt. states she is unaware of this dx. 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 states she is unaware of this. Pneumonia (~07/20/18) Prerenal azotemia Surgical History Cholecystectomy (~1991) Fracture, Closed Treatment (04/10/14) LEFT SHOULDER FX AND DISLOCATED Posterior subcapsular age-related cataract, right eye Status post extracapsular cataract extraction of left eye Family History Mother , age 56 Cancer Father , age 76 Heart disease Sister No problems noted. Son No problems noted. Daughter No problems noted. Maternal Grandfather , age 78 No problems noted. Paternal Grandfather , age 62 Stroke Maternal Grandmother , age 89 - Accident No problems noted. Paternal Grandmother , age 68 No problems noted. Social History Smoking/Tobacco Use Status: Never Second Hand Exposure: Yes Smoking risk assessment performed?: Yes Alcohol Intake: never Drug use: Never Substance use type: does not use Counseling given: No Caregiver/Support person: Yes Household members: caregiver Housing: care home Communication Needs: Hard of Hearing Do you need help understanding health information?: Always Pets and animals: No Sexually active: No Do you think of yourself as: straight/heterosexual Current gender identity: female What is your relationship status?: How often do you talk on the phone with friends or family?: three or more times per week How often do you get together with friends or relatives?: once per week How often do you attend gnosticism or yazdanism services?: 1-3 times per year Do you belong to any clubs or organized social groups?: no Panel score (0-1 are the most socially isolated patients): 1 What type of physical activity do you participate in: walking and weight lifting Duration: < 15 minutes/day Frequency: 1-2 times per week Anai/Scientology: Temple Special anai needs: No Seatbelt use: always Helmet use: No Drive intox or ride w/intox automobile drivers: No Do you feel safe at home: Yes Do you feel safe in your relationship?: Yes Time Spent with Patient Time Spent with Patient: >85 minutes Time was spent: preparing to see the patient(eg.review tests), obtaining and/or reviewing separately otained hiistory, ordering medications,tests, procedures, referring, communicating with other health progressive care manager, indepentently interpreting results and care coordination
[2023-09-22 11:16] VITALS: BP 131/63; PULSE 55; RESP 18; TEMP 34.7; O2SAT 95
--- NOTE | 2023-09-22 11:19 | CMDISCH_ITS ---
Date of service: 09/22/23 Time of Service: 11:19 LACE Index Scoring Tool Questions: Length of Stay (in days): 3 Was the patient admitted via the E.D.?: Yes Comorbidities: Liver or Renal Disease E.D. Visits: 2 Answers: Total Score: 13 Risk of Readmission: High Risk Care Management Discharge Plan Reason for Hospitalization: Hypertension Discharge Plan: Meredith is discharged back to the [facility] where she resides with detention services. She will follow up with facility/community providers and her discharge plan of care as instructed. She is driven via [employer] W/C van. Patient/Family Education Needs: Review discharge instructions, limitations, medications and plan to follow up with community providers. Discuss ask me three. Services Needed at Discharge: Transportation ([facility] w/c van, coordinated by CM) SDOH Health Related Social Needs: No Data to Display
--- NOTE | 2023-09-22 13:09 | PCNE_ITS ---
Date of service: 09/22/23 Time of Service: 13:09 History of Present Illness Narrative: Meredith is an 87 year old female with dementia, CVA and CKD. She has been followed at the [facility] by Dr. Bradford. She was admitted with AMS. Her work up included MRI brain with no acute findings. She was found to be in a-fib w/ RVR and was started on metoprolol. She was also noted to have UTI. Her mental status cleared after 3 days (which has happened during a previous hospitalization). Palliative was consulted initially but by the time we are seeing her, she is back to her baseline according to staff and she will be returning to the [facility] today. At the time of her visit, she is sitting up in the recliner with her lunch next to her. She is oriented to self. She is talking about something happening at the hospital and appeared worried about it. She denies pain, she does not appear to be in distress. She is alone in the room. Staff entered during the visit to get her dressed for discharge, so our visit was cut short. She has previously established that she is a DNR/DNI. She has been okay with transfer to the hospital for work-up as indicated. She was unable to engage in a conversation re: if this is still within her goals. This could be discussed with her and her HCA as an outpatient/back at the [facility] with her usual Palliative provider. Assessment and Plan Assessment and plan (1) Atrial fibrillation with RVR: Status: Resolved Assessment and plan: Noted to be in afib with RVR yesterday morning (has remote previous history and was on low-dose Metroprolol 12.5 mg daily which needed to be discontinued secondary to bradycardia). She was restarted on metoprolol. (2) Acute encephalopathy: Status: Resolved Assessment and plan: Now at baseline MRI was unrevealing (3) Hypertensive urgency: Status: Acute (4) Hypothyroid: Status: Chronic (5) Palliative care patient: Status: Acute Assessment and plan: Meredith is an 87 year old female with dementia, CVA and CKD. She has been followed at the [facility] by Dr. Bradford for Palliative care. She was admitted with AMS. MRI brain with no acute findings. She was found to be in a-fib w/ RVR and was restarted on metoprolol. She was also noted to have UTI. Her mental status cleared after 3 days (which has happened during a previous hospitalization). Palliative was consulted initially but by the time we are seeing her, she is back to her baseline according to staff and she will be returning to the [facility] today. She is pleasant and denies concerns. She has previously established that she is a DNR/DNI. She has been okay with transfer to the hospital for work-up as indicated. She was unable to engage in a conversation re: if this is still within her goals. This could be discussed with her and her HCA as an outpatient/back at the [facility] with her usual Palliative provider. F/u with Palliative as scheduled. Review of Systems Narrative: Denies concerns when asked. PFSH All Active Problems Hypertensive urgency (Acute) Discharge planning issues (Acute) DVT prophylaxis (Acute) retirement resident (Acute) DNR no code (do not resuscitate) (Acute) Dementia with behavioral disturbance (Acute) Chronic heart failure with preserved ejection fraction (Chronic) Macular degeneration (Acute) Essential tremor (Acute) familial Gait abnormality (Acute) uses a walker when out, balance and shuffling steps Prediabetes (Chronic) 03/26/21- A1c 5.9 [facility] Hypertension (Chronic) Anxiety (Chronic) CKD (chronic kidney disease) stage 3, GFR 30-59 ml/min (Chronic) Hypothyroid (Chronic) 03/26/21- TSH 2.95 [facility]0 WNL Memory changes (Acute) Dyspnea (Acute) Left lower lobe pulmonary nodule (Acute) PET 10/2021: highly metabolically active left lower mass, organizing pneumonia vs. 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 states she is unaware of this. Acute infective polyneuritis (~04/03/1966) Pneumonia (~07/20/18) Cerebrovascular accident 06/12 CT @ [facility]: SMALL LACUNAR INFARCTS. Incidental findings. Pt. states she is unaware of this dx. Dislocation of shoulder, anterior, left, closed (04/10/14) Closed displaced fracture of greater tuberosity of left humerus (04/10/14) Closed fracture of head of left humerus (04/10/14) Surgical History Posterior subcapsular age-related cataract, right eye Status post extracapsular cataract extraction of left eye Fracture, Closed Treatment (04/10/14) LEFT SHOULDER FX AND DISLOCATED Cholecystectomy (~1991) Family History Mother , age 56 Cancer Father , age 76 Heart disease Sister No problems noted. Son No problems noted. Daughter No problems noted. Maternal Grandfather , age 78 No problems noted. Paternal Grandfather , age 62 Stroke Maternal Grandmother , age 89 - Accident No problems noted. Paternal Grandmother , age 68 No problems noted. Social History Smoking/Tobacco Use Status: Never Second Hand Exposure: Yes Smoking risk assessment performed?: Yes Alcohol Intake: never Drug use: Never Substance use type: does not use Counseling given: No Caregiver/Support person: Yes Household members: caregiver Housing: correction Communication Needs: Hard of Hearing Do you need help understanding health information?: Always Pets and animals: No Sexually active: No Do you think of yourself as: straight/heterosexual Current gender identity: female What is your relationship status?: How often do you talk on the phone with friends or family?: three or more times per week How often do you get together with friends or relatives?: once per week How often do you attend hindu or protestant services?: 1-3 times per year Do you belong to any clubs or organized social groups?: no Panel score (0-1 are the most socially isolated patients): 1 What type of physical activity do you participate in: walking and weight lifting Duration: < 15 minutes/day Frequency: 1-2 times per week Anai/Protestant: Christian Special anai needs: No Seatbelt use: always Helmet use: No Drive intox or ride w/intox test car driver: No Do you feel safe at home: Yes Do you feel safe in your relationship?: Yes Exam Narrative Exam Narrative: General: pleasant, elderly, well-nourished female, sitting up in the recliner with legs elevated. She is awake and alert, oriented to self. HEENT: atraumatic, EOMI, mm dry. Neck: supple Respiratory: respirations appear even and unlabored at rest. GI: soft, nontender on palpation. Extremities: no edema. Results Last Vital Signs Temp 34.7 C L 09/22/23 11:16 Pulse 55 L 09/22/23 11:16 Resp 18 09/22/23 11:16 BP 131/63 09/22/23 11:16 Pulse Ox 95 09/22/23 11:16 Labs 09/20/23 06:31 09/20/23 06:31
== END 2023-09-22 13:29 | disposition skilled nursing facility (03) | DRG 71 ==
LOC: ER 13:26 → MS 16:15
PROVIDERS: Nurse Practitioner Acute Care; Nurse Practitioner Family; Admitting Provider Internal Medicine; Emergency Provider Emergency Medicine; PCP Legal Medicine; Visit Provider Internal Medicine
DX: G93.40 Encephalopathy, unspecified (principal); F03.918 Unspecified dementia, unspecified severity, with other behavioral disturbance; T83.518A Infection and inflammatory reaction due to other urinary catheter, initial encounter; N39.0 Urinary tract infection, site not specified; I50.32 Chronic diastolic (congestive) heart failure; I13.0 Hypertensive heart and chronic kidney disease with heart failure and stage 1 through stage 4 chronic kidney disease, or unspecified chronic kidney disease; I16.0 Hypertensive urgency; E03.9 Hypothyroidism, unspecified; I48.91 Unspecified atrial fibrillation; G25.0 Essential tremor; R26.9 Unspecified abnormalities of gait and mobility; H35.30 Unspecified macular degeneration; R73.03 Prediabetes; F41.9 Anxiety disorder, unspecified; N18.30 Chronic kidney disease, stage 3 unspecified; R91.1 Solitary pulmonary nodule; Z86.73 Personal history of transient ischemic attack (TIA), and cerebral infarction without residual deficits; E53.8 Deficiency of other specified B group vitamins; D32.0 Benign neoplasm of cerebral meninges; R00.1 Bradycardia, unspecified; I48.0 Paroxysmal atrial fibrillation
CPT/HCPCS: 00123; 36415; 80048; 80076; 82550; 87077; 87641; 93005; 96361; 96374; 96375; 96376; 97161; 97530; 99285; 70450; 70551; 71045; 80320; 80329; 81003; 81015; 82140; 83735; 84439; 84443; 85025; 87086; 87186; 93010; 99222; 99231; 99232; 99239; 99291; G0378; J0360; J0696; J1650; J1941; J2250; J3360; J3490

== ENCOUNTER 2024-02-02 18:22 | Outpatient (REF) | payer MEDICARE, MEDICAID, SELFPAY ==
--- OUTSIDE RECORDS SUMMARY | 2024-02-02 18:26 | XMS_ITS | Referral Summary ---
Author Organization [facility] Address [address] [place] [address] Care Team Providers Care Traveling Plant Operator Name Role Phone Eloina Brewer TOP BOTTOM ATTACHING MACHINE OPERATOR Primary Care Provider [phone] Allergies Active Allergy Reactions Criticality Noted Date Comments Amlodipine Swelling of tongue 11/16/2021 Sulfa (Sulfonamide Antibiotics) Hives 05/2017 Medications Medication Sig Dispensed Refills Start Date End Date Status metoprolol SUCCinate (TOPROL-XL) 25 mg tablet Take 25 mg by mouth daily. 07/26/2020 Active senna (SENOKOT) 8.6 mg tablet Take 1 Tab by mouth daily as needed. Active QUEtiapine (SEROQUEL) 25 mg tablet Take 2 Tablets by mouth 2 times daily. 30 Tablet 12/15/2021 Active levothyroxine (SYNTHROID) 25 mcg tablet Take 25 mcg by mouth daily. Active Active Problems Patient Care Coordination No te Formatting of this note migh t be different from the original. Patient has given permission for [facility] to verbally discuss the following information with Yris Rodriges, and Diego Thornton who has the following relationship to the patient: Son/Daughter: Scheduling/Appt/Billing/Payment Information (does not include clinical information unless specifically indicated with separate option) Medical Information including symptoms, diagnosis, medications, test results and treatment plan (does not include Mental Health unless specifically indicated with separate option) Mental Health (Behavioral,Psychiatric,Chemical Dependency) health information, including my symptoms, diagnosis, medications and treatment plan Permission remains in effect until the patient elects to revoke it. 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 Social History Tobacco Use Types Packs/Day Years Used Date Smoking Tobacco: Never Smokeless Tobacco: Never PHQ-2 Answer Date Recorded PHQ-2 SUBTOTAL 0 08/31/2020 Interpersonal Safety Answer Date Record ed Physically Hurt Never 08/31/2020 Verbally Threaten Never 08/31/2020 Sex and Gender Information Value Date Recorded Sex Assigned at Not on file Gender Identity Female 07/03/2020 13:32 EST Sexual Orientation Not on file Last Filed Vital Signs Vital Sign Reading Time Taken Comments Blood Pressure 179/93 12/18/2021 1655 EDT Pulse 72 12/17/2021 1708 EDT Temperature 34.3 ??C (93.7 ??F) 12/18/2021 1655 EDT Respiratory Rate 20 12/18/2021 1655 EDT Oxygen Saturation 98% 12/18/2021 1655 EDT Inhaled Oxygen Concentration - - Weight 72.6 kg (160 lb) 12/17/2021 1708 EDT Height 165.1 cm (5' 5) 12/17/2021 1708 EDT Body Mass Index 26.63 12/17/2021 1708 EDT Functional Status Functional Status Response Date of Assess ment Are you deaf or do you have serious difficulty h earing? No 12/18/2021 Are you blind or do you have serious difficulty seeing, even when wearing glasses? Yes 12/18/2021 Because of a physical, menta l, or emotional condition, does this person have difficulty doing errands alone such as visiting a doctor's office or shopping? No 12/03/2017 Cognitive Status Response Date of Assessm ent Because of a physical, menta l, or emotional condition, does this person have serious difficulty concentrating, remembering, or making decisions? No 12/03/2017 Plan of Treatment Not on file Meredith Thornton Personal/Family Self 1935 [facility] [address] [place] [id number] Meredith Thornton Personal/Family Self 1935 [facility] [address] [place] [id number] Meredith Thornton Personal/Family Self 1935 [facility] [address] [place] [id number] Meredith Thornton Personal/Family Self 1935 [facility] [address] [place] [id number] Meredith Thornton Personal/Family Self 1935 [facility] [address] [place] [id number] Meredith Thornton Personal/Family Self 1935 [facility] [address] [place] [id number] Meredith Thornton Personal/Family Self 1935 [facility] [address] [place] [id number] Advance Directives For more information, please contact: [phone] Documents on File Type Date Recorded Patient Trademark Attorney Expl anation Advance Directive 09/15/2020 13:33 Living Will-Signed 2000-03-03 * Full Code (Latest Code Status on File) Date Activated Date Inactivated Comments 12/18/2021 6:00 12/18/2021 20:03 Question Answer Comments When the patient has NO PULSE: Full Code / CPR Who Made the Decision? Default/Not Discussed Care Teams Traveling Plant Operator Relationship Specialty Start Date End Date Eloina Brewer NP [address] [place] [address] [address] [place] [address] PCP - General 10/16/20
--- OUTSIDE RECORDS SUMMARY | 2024-02-02 18:26 | XMS_ITS | Encounter Summary ---
Author Organization [facility] Address [address] [place] [address] Care Team Providers Care Systems Analyst Developer Name Role Phone Eloina Brewer MULTI MISSION HELICOPTER AIRCREWMAN Primary Care Provider [phone] Encounter Details Date Type Department Care Team (Late st Contact Info) Description 01/17/2022 Documentation Visit [facility] Hematology & Oncology - [address] [id number] Ruben Pradhan, RN Social History Tobacco Use Types Packs/Day Years Used Date Smoking Tobacco: Never Smokeless Tobacco: Never PHQ-2 Answer Date Recorded PHQ-2 SUBTOTAL 0 08/31/2020 Interpersonal Safety Answer Date Record ed Physically Hurt Never 08/31/2020 Verbally Threaten Never 08/31/2020 Sex and Gender Information Value Date Recorded Sex Assigned at Not on file Gender Identity Female 07/03/2020 13:32 EST Sexual Orientation Not on file documented as of this encounter Functional Status Functional Status Response Date of [...] concentrating, remembering, or making decisions? No 12/03/2017 documented as of this encounter Progress Notes * Ruben Pradhan, RN - 01/17/2022 1020 EDT POA/ daughter ask to cancel LMD[facility] appt. Aware of concern of lung cancer, but pt on hospice and not wanting to workup for cancer at this time. Verbalizes understanding concern of cancer and understanding. documented in this encounter Plan of Treatment Not on file documented as of this encounter Visit Diagnoses Not on filedocumented in this encounter Care Teams Systems Analyst Developer Relationship Specialty Start Date End Date Eloina Brewer NP [address] [place] [address] [address] [place] [phone] PCP - General 10/16/20 documented as of this encounter
--- OUTSIDE RECORDS SUMMARY | 2024-02-02 18:26 | XMS_ITS | Clinical Summary ---
Author Organization [facility] Address [address] [place] [address] Care Team Providers Care Rug Drying Machine Operator Name Role Phone Eloina Brewer DISH UP PERSON Primary Care Provider Allergies Active Allergy Reactions Criticality Noted Date [...] original. 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 Surgical History Surgery Date Site/Laterality Comments CHOLECYSTECTOMY TUBAL LIGATION INTRAOCULAR LENS PROSTHESIS INSERTION 06/05/2016 SHOULDER SURGERY Left TIBIA FRACTURE SURGERY 05/05/1967 - 05/04/1968 Left CATARACT REMOVAL Medical History Medical History Date Comments Pancreatitis Hypertension Neurological disease gulian/bare disease Cataract Eye trauma Hypothyroidism 09/19/2020 Family History Medical History Relation Comments Stroke Father Cataract Maternal Grandmother Cancer Mother Heart Disease Mother Relation Status Comments Father Grandchild testicular cance r Maternal Grandmother Mother esophgeal cancer Social History Tobacco Use Types Packs/Day Years Used Date Smoking Tobacco: Never Smokeless Tobacco: Never PHQ-2 Answer Date Recorded PHQ-2 SUBTOTAL 0 08/31/2020 Interpersonal Safety Answer Date Record ed Physically Hurt Never 08/31/2020 Verbally Threaten Never 08/31/2020 Sex and Gender Information Value Date Recorded Sex Assigned at Not on file Gender Identity Female 07/03/2020 13:32 EST Sexual Orientation Not on file Obstetrics History Last Filed Vital Signs Vital Sign Reading [...] Body Mass Index 26.63 12/17/2021 1708 EDT Plan of Treatment Health Maintenance Due Date Last Done Comments Lipid Profile Screening (Cholesterol) 12/06/1939 Preventive Care Visit 1954 Pertussis (Adult) Immunization 12/06/1955 Tetanus (Adult) Immunization 12/06/1955 Shingles Immunization (1 of 2) 1986 RSV Immunization ( o r 60+ Years) (1 - 1-dose 60+ series) 1996 Osteoporosis Screening 2001 Pneumococcal Immunization (65+) (1 of 1 - PCV) 002 Depression Screening 08/31/2021 08/31/2020 Fall Risk Screening 08/31/2021 08/31/2020 Social Determinants Of Health (SDOH) 08/31/202108/04 COVID-19 Vaccine (2022- season) 2023 Influenza Immunization (Adult) (#1) 2024 Meredith Thornton Personal/Family Self 1935 [facility] [address] [place] [address]Meredith Yousif Personal/Family Self 1935 [facility] [address] [place] [address] Meredith Thornton Personal/Family Self 1935 [facility] [address] [place] [address] Meredith Thornton Personal/Family Self 1935 [facility] [address] [place] [address] Meredith Tohrnton Personal/Family Self 1935 [facility] [address] [place] [address] Meredith Thornton Personal/Family Self 1935 [facility] [address] [place] [address] Meredith Thornton Personal/Family Self 1935 [facility] [address] [place] [address] Advance Directives For more information, please contact: [phone] Documents on File Type Date Recorded Patient Certified Peer Specialist Expl anation Advance Directive 09/15/2020 13:33 Living Will-Signed 2000[birth year]03-03 * Full Code (Latest Code Status on File) Date Activated Date Inactivated Comments 12/18/2021 6:00 12/18/2021 20:03 Question Answer Comments When the patient has NO PULSE: Full Code / CPR Who Made the Decision? Default/Not Discussed Care Teams Rug Drying Machine Operator Relationship Specialty Start Date End Date Eloina Brewer NP [address] [place] [address] [address] [place] [phone] PCP - General 10/16/20
--- OUTSIDE RECORDS SUMMARY | 2024-02-02 18:26 | XMS_ITS | Encounter Summary ---
Author Organization [facility] Address [address] [place] [address] Care Team Providers Care Surgical Endoscopist Name Role Phone Eloina Brewer TOLL LINE REPAIRER Primary Care Provider [phone] Encounter Details Date Type Department Care Team (Late st Contact Info) Description 11/04/2022 Lab Requisition [facility] Pathology & Laboratory Medicine - [address] [address] Outr Resulting Lab, Provider Social History Tobacco Use Types Packs/Day Years [...] No 12/03/2017 documented as of this encounter Plan of Treatment Not on file documented as of this encounter Procedures Procedure Name Priority Date/Time Associated Diagnosis Comments LEGIONELLA ANTIGEN DETECTION, URINE Routine 11/04/2022 3:00 EDT documented in this encounter Results * LEGIONELLA ANTIGEN DETECTION, URINE (11/04/2022 3:00 EDT) Legionella Antigen Detection Negative Negative 11/04/2022 22:26 EDT [facility] Urine URINE / Unknown 11/04/2022 3 :00 EDT 11/04/2022 16:53 EDT Provider Outr Resulting Lab MICROBIOLOGY - GENERAL ORDERABLES [facility] [address] [place] [address] documented in this encounter Visit Diagnoses Not on filedocumented in this encounter Care Teams Surgical Endoscopist Relationship Specialty Start Date End Date Eloina Brewer NP [address] [place] [address] [address] [place] [address] PCP - General 10/16/20 documented as of this encounter
--- OUTSIDE RECORDS SUMMARY | 2024-02-02 18:27 | XMS_ITS | Encounter Summary ---
Author Organization [facility] Address [address] [place] [address] Care Team Providers Care Special Education Itinerant Teacher Name Role Phone Eloina Brewer ELECTRICIAN JOURNEYMAN WIREMAN Primary Care Provider [phone] Encounter Details Date Type Department Care Team (Latest Contact Info) Description 12/12/2021 10:30 EDT Phlebotomy Only [facility] Laboratory Services - [facility] ([address] [phone] Hypertension (Primary Dx) Social History Tobacco Use Types Packs/Day Years Used Date Smoking Tobacco: Never Smokeless Tobacco: Never PHQ-2 Answer Date Recorded PHQ-2 SUBTOTAL 0 08/31/2020 Interpersonal Safety Answer Date Record ed Physically Hurt Never 08/31/2020 Verbally Threaten Never 08/31/2020 Sex and Gender Information Value Date Recorded Sex Assigned at Not on file Gender Identity Female 07/03/2020 13:32 EST Sexual Orientation Not on file COVID-19 Exposure Response Date Recorded In the last 10 days, have yo u been in contact with someone who was confirmed or suspected to have Coronavirus/COVID-19? No / Unsure 12/15/2021 12:57 EDT documented as of this encounter Functional Status Functional Status Response Date of Assess ment Because of a physical, menta l, or [...] Procedure Name Priority Date/Time Associated Diagnosis Comments BASIC METABOLIC PANEL (BMP) Routine 12/12/2021 10:40 EDT Hypertension documented in this encounter Results * (ABNORMAL) BASIC METABOLIC PANEL (BMP) (12/12/2021 10:40 EDT) Sodium 143 136 - 145 mmol/L 12/12/2021 12:48 EDT [facility] Potassium 4.2 3.5 - 5.0 mmol/L 12/12/2021 12:48 T [facility] Chloride 105 96 - 110 mmol/L 12/12/2021 12:48 T [facility] CO2 Total 21(L) 22 - 32 mmol/L 12/12/2021 12:48 T [facility] Anion Gap 17(H) 5 - 14 12/12/2021 12:48 [facility] Glucose 112(H) 70 - 100 mg/dL 12/12/2021 12:48 T [facility] Calcium 9.0 8.5 - 10.5 mg/dL 12/12/2021 12:48 [facility] BUN 21 10 - 26 mg/dL 12/12/2021 12:48 [facility] Creatinine 1.16(H) 0.52 - 1.04 mg/dL 12/12/2021 12:48 T [facility] eGFR 46(L) >60 mL/min/1.73 m2 12/12/2021 12:48 T [facility] Blood VENOUS BLOOD / Unknown Venipuncture / Unknown 12/12/2021 10:40 EDT 12/12/2021 10:41 EDT Arleth Sylvester MD CHEMISTRY & BLO OD GAS ORDERABLES [facility] [address] [place] [address] documented in this encounter Visit Diagnoses Diagnosis Hypertension- Primary Unspecified essential hypertension documented in this encounter Care Teams Special Education Itinerant Teacher Relationship Specialty Start Date End Date Eloina Brewer NP [address] [place] [phone] PCP - General 10/16/20 documented as of this encounter
--- OUTSIDE RECORDS SUMMARY | 2024-02-02 18:27 | XMS_ITS | Encounter Summary ---
Author Organization [facility] Address [address] [place] [address] Care Team Providers Care Hris Developer Name Role Phone Patricia Ulloa MD Primary Care Provider Reason for Visit * Reason Onset Date Comments Other 09/15/2020 Living Will, DPO A Encounter Details Date Type Department Care Team (Late st Contact Info) Description 09/15/2020 Telephone [facility] Adult Primary Care - [address] [phone] Patricia Ulloa MD [address] [place] [phone] Other (Living Will, DPOA) Social History Tobacco Use Types Packs/Day Years [...] No 12/03/2017 documented as of this encounter Miscellaneous Notes * Telephone Encounter - Kianna Rodriges - 09/15/2020 0813 EDT Incoming mail from Pt. Mike Will, and RAMANDEEP. Placed in scanning. KIANNA RODRIGES 09/15/2020 8:15 documented in this encounter Plan of Treatment Not on file documented as of this encounter Visit Diagnoses Not on filedocumented in this encounter Care Teams Hris Developer Relationship Specialty Start Date End Date Patricia Ulloa MD PCP - General Geriatric Medicine 08/31/20 10/15/20 documented as of this encounter
--- OUTSIDE RECORDS SUMMARY | 2024-02-02 18:27 | XMS_ITS | Encounter Summary ---
Author Organization [facility] Address [address] [place] [address] Care Team Providers Care Emergency Room Tech Name Role Phone Eloina Brewer NP Primary Care Provider [phone] Encounter Details Date Type Department Care Team (Latest Contact Info) Description 03/07/[address] [facility] [phone] Eloina Brewer NP [address] [place] [address] Pre-diabetes (Primary Dx); Hypertension, essential Social History Tobacco Use Types Packs/Day Years [...] on file documented as of this encounter Results * TSH (03/26/2021 10:07 EST) TSH 2.95 0.47 - 4.68 ??IU/mL 03/26/2021 12:06 EST [facility] Blood VENOUS BLOOD / Unknown Venipuncture / Unknown 03/26/2021 10:07 EST 03/26/2021 10:08 EST Narrative [facility] - 03/26/2021 12:06 EST The results of this assay can be falsely lowered due to the consumption of Biotin. Eloina Brewer NP CHEMISTRY & BLOOD G ORDERABLES Performing Organization Address [facility] Phone Number [facility] [address] [place] [address] * (ABNORMAL) HEMOGLOBIN A1C (03/26/2021 10:07 EST) Hemoglobin A1c 5.9(H) <5.7 % 03/26/2021 13:39 EST [facility] Comment: Glycemic Status References: Normal: ??<5.7% Pre-Diabetes: ??5.7% - 6.4% Diagnostic of Diabetes: ??> or = 6.5% (if confirmed) Est Avg Glucose 123 mg/dL 13:39 EST [facility] Comment:The eAG represents t he A1c result expressed as average glucose in mg/dL. Blood VENOUS BLOOD / Unknown Venipuncture / Unknown 03/26/2021 10:07 EST 03/26/2021 10:08 EST Eloina Brewer NP CHEMISTRY & BLOOD G ORDERABLES Performing Organization Address [facility] de Phone Number [facility] [address] [place] [address] documented in this encounter Visit Diagnoses Diagnosis Pre-diabetes- Primary Other abnormal glucose Hypertension, essential Unspecified essential hypertension documented in this encounter Care Teams Emergency Room Tech Relationship Specialty Start Date End Date Eloina Brewer NP [address] [place], [place] [address] [place] [address] PCP - General 10/16/20 documented as of this encounter
--- OUTSIDE RECORDS SUMMARY | 2024-02-02 18:27 | XMS_ITS | Encounter Summary ---
Author Organization [facility] Address [address] [place] [address] Care Team Providers Care Electrician Refinery Name Role Phone Unavailable Primary Care Provider Unavailabl e Encounter Details Date Type Department Care Team (Latest Contact Info) Description 08/01/2020 10:00 EDT Phlebotomy Only [facility] Laboratory Services - [facility] ([facility] [address] [place] [address] Health examination in population survey (Primary Dx) Social History Tobacco Use Types Packs/Day Years Used Date Smoking Tobacco: Never Smokeless Tobacco: Never Interpersonal Safety Answer Date Record ed Physically Hurt Never 2019 Verbally Threaten Not on file 2019 Sex and Gender Information Value Date Recorded [...] Procedure Name Priority Date/Time Associated Diagnosis Comments TSH Routine 08/01/2020 10:30 EDT Health examination in population survey POTASSIUM Routine 08/01/2020 10:30 EDT Health examination in population survey HEMOGLOBIN A1C Routine 08/01/2020 10:30 EDT Health examination in population survey CREATININE Routine 08/01/2020 10:30 EDT Health examination in population survey documented in this encounter Results * POTASSIUM (08/01/2020 10:30 EDT) Potassium 4.7 3.5 - 5.0 mEq/L 08/01/2020 12:[address] [facility] Blood VENOUS BLOOD / Unknown Venipuncture / Unknown 08/01/2020 10:30 EDT 08/01/2020 10:31 EDT Eloina Beatriz Brewer NP CHEMISTRY & BLOOD G ORDERABLES Performing Organization Address City/State/[facility] Co de Phone Number [facility] [address] [place] [address] * (ABNORMAL) HEMOGLOBIN A1C (08/01/2020 10:30 EDT) Hemoglobin A1c 5.7(H) <5.7 % 08/01/2020 15:[address] [facility] Comment: Glycemic Status References: Normal: ??<5.7% Pre-Diabetes: ??5.7% - 6.4% Diagnostic of Diabetes: ??> or = 6.5% (if confirmed) Goals for glycemic control in diabetics (ADA 2017): <7.0% target for non adults with diabetes. <7.5% target for children and adolescents with Type I Diabetes. More or less stringent targets may be appropriate for individual patients. Est Avg Glucose 117 mg/dL 15:[address] [facility] Comment:The eAG represents t he A1c result expressed as average glucose in mg/dL. Blood VENOUS BLOOD / Unknown Venipuncture / Unknown 08/01/2020 10:30 EDT 08/01/2020 10:31 EDT Elonia L Ivanio NUCLEAR CONTROL OPERATOR CHEMISTRY & BLOOD G ORDERABLES Performing Organization Address [facility] Co de Phone Number [facility] [address] [place] [address] * (ABNORMAL) CREATININE (08/01/2020 10:30 EDT) Creatinine 1.09(H) 0.52 - 1.04 mg/dL 08/01/2020 12:[address] [facility] eGFR 47(L) >60 mL/min/1.7 3m2 08/01/2020 12:[address] [facility] Comment:eGFR calculated gia moreno CKD-EPI equation for non- Americans. Multiply eGFR by 1.16 for patients. Blood VENOUS BLOOD / Unknown Venipuncture / Unknown 08/01/2020 10:30 EDT 08/01/2020 10:31 EDT Eloina L Ivanio NUCLEAR CONTROL OPERATOR CHEMISTRY & BLOOD G ORDERABLES Performing Organization Address [facility] Co de Phone Number [facility] [address] [place] [address] * (ABNORMAL) TSH (08/01/2020 10:30 EDT) TSH 6.66(H) 0.47 - 4.68 uIU/mL 08/01/2020 13:[address] [facility] Blood VENOUS BLOOD / Unknown Venipuncture / Unknown 08/01/2020 10:30 EDT 08/01/2020 10:31 EDT Narrative [facility] - 08/01/2020 13:08 EDT The results of this assay can be falsely lowered due to the consumption of Biotin. Eloina L Imperio NUCLEAR CONTROL OPERATOR CHEMISTRY & BLOOD G ORDERABLES Performing Organization Address City/[facility] de Phone Number [facility] [address] [place] [address] documented in this encounter Visit Diagnoses Diagnosis Health examination in population survey- Primary documented in this encounter
--- OUTSIDE RECORDS SUMMARY | 2024-02-02 18:27 | XMS_ITS | Encounter Summary ---
Author Organization [facility] Address [address] [place] [address] Care Team Providers Care Estimating Engineer Name Role Phone Unavailable Primary Care Provider Unavailabl e Encounter Details Date Type Department Care Team (Latest Contact Info) Description 08/01/2020 Travel Social History Tobacco Use Types Packs/Day Years [...]
--- OUTSIDE RECORDS SUMMARY | 2024-02-02 18:27 | XMS_ITS | Encounter Summary ---
Author Organization [facility] Address [address] [place] [address] Care Team Providers Care School Physical Therapist Name Role Phone Eloina Brewer NP Primary Care Provider [phone] Patricia Nails MD Primary Care Provider Reason for Visit * Reason Onset Date Comments Hypertension 10/05/2020 Encounter Details Date Type Department Care Team (Late st Contact Info) Description 10/05/2020 Telephone [facility] Adult Primary Care - [address] [phone] Patricia Nails MD [address] [place] [phone] Hypertension Social History Tobacco Use Types Packs/Day Years [...] encounter Miscellaneous Notes * Telephone Encounter - Isela Alvarez RN - 10/16/2020 1219 EDT Outgoing call to patient. Spoke with her daughter Yris. Patient has moved back to [place]. She has an appointment there and will be receiving care from [facility]. They will follow up and make sure that records from here are sent Update sent to PCP. ISELA ALVAREZ RN * Telephone Encounter - Kezia Naranjo RN - 10/05/2020 1656 EDT ----- Message from Klaus Ko sent at 10/05/2020 15:59 EDT ----- She was d/c from home health services earlier this week. Klaus ----- Message ----- From: Kezia Naranjo RN Sent: 10/05/2020 15:16 EDT To: [facility] Triage Pool 1) increase lisinopril to 20 mg 2) log daily x 1 week and then call office back with values. ?? Patricia Nails MD ? * Telephone Encounter - Kezia Naranjo RN - 10/05/2020 1518 EDT Affiliate message sent to Home health and hospice [facility] with Dr. nails's plan from today at 14:36. Attempted to call Meredith but no one picked up * Telephone Encounter - Patricia Nails MD - 10/05/2020 1436 EDT 1) increase lisinopril to 20 mg 2) log daily x 1 week and then call office back with values. Patricia Nails MD * Telephone Encounter - Denise Lopez - 10/05/2020 1257 EDT Pt is cont PT today BP was high again today 200/90-asymptomatic Daughter states that they do not get the high readings ( family members are bringing in their own cuff) documented in this encounter Plan of Treatment Not on file documented as of this encounter Visit Diagnoses Not on filedocumented in this encounter Care Teams School Physical Therapist Relationship Specialty Start Date End Date Eloina Brewer NP [address] [place] [phone] PCP - General 10/16/20 Patricia Nails MD [address] [place] [phone] PCP - General Geriatric Medicine 08/31/20 10/15/20 documented as of this encounter
--- OUTSIDE RECORDS SUMMARY | 2024-02-02 18:27 | XMS_ITS | Encounter Summary ---
Author Organization [facility] Address [address] [place] [address] Care Team Providers Care Enrollment Nurse Name Role Phone Eloina Brewer [facility] Primary Care Provider [phone] Encounter Details Date Type Department Care Team (Latest Contact Info) Description 03/26/2021 10:00 EST Phlebotomy Only [facility] Laboratory Services - [address] [phone] Pre-diabetes; Hypertension, essential Social History Tobacco Use Types [...] Priority Date/Time Associated Diagnosis Comments TSH Routine 03/26/2021 10:07 EST Pre-diabetes Hypertension, essential HEMOGLOBIN A1C Routine 03/26/2021 10:07 EST Pre-diabetes Hypertension, essential documented in this encounter Results * TSH (03/26/2021 10:07 EST) TSH 2.95 0.47 - 4.68 ??IU/mL 03/26/2021 12:06 EST [facility] Blood VENOUS BLOOD / Unknown Venipuncture / Unknown 03/26/2021 10:07 EST 03/26/2021 10:08 EST Narrative [facility] - 03/26/2021 12:06 EST The results of this assay can be falsely lowered due to the consumption of Biotin. Eloina L Orlumetio [facility] CHEMISTRY & BLOOD G ORDERABLES Performing Organization Address [facility] de Phone Number [facility] [address] [place] [address] * (ABNORMAL) HEMOGLOBIN A1C (03/26/2021 10:07 EST) Hemoglobin A1c 5.9(H) <5.7 % 03/26/2021 13:39 EST [facility] Comment: Glycemic Status References: Normal: ??<5.7% Pre-Diabetes: ??5.7% - 6.4% Diagnostic of Diabetes: ??> or = 6.5% (if confirmed) Est Avg Glucose 123 mg/dL 13:39 EST [facility] Comment:The eAG represents t he A1c result expressed as average glucose in mg/dL. Blood VENOUS BLOOD / Unknown Venipuncture / Unknown 03/26/2021 10:07 EST 03/26/2021 10:08 EST Eloina L Swarm [facility] CHEMISTRY & BLOOD G ORDERABLES Performing Organization Address [facility] de Phone Number [facility] [address] [place] [address] documented in this encounter Visit Diagnoses Diagnosis Pre-diabetes Other abnormal glucose Hypertension, essential Unspecified essential hypertension documented in this encounter Care Teams Enrollment Nurse Relationship Specialty Start Date End Date Eloina Brewer NP [address] [place] [address] PCP - General 10/16/20 documented as of this encounter
--- OUTSIDE RECORDS SUMMARY | 2024-02-02 18:27 | XMS_ITS | Encounter Summary ---
Author Organization [facility] Address [address] [place] [address] Care Team Providers Care Armorer Technician Name Role Phone Unavailable Primary Care Provider Unavailabl e Reason for Visit * Reason Onset Date Comments Paperwork request 08/03/2020 NPV Packet Encounter Details Date Type Department Care Team (Late st Contact Info) Description 08/03/[address] [facility] Adult Primary Care - [address] [address] Patricia Ulloa MD [address] [place] [address] Paperwork request (NPV Packet) Social History Tobacco Use Types Packs/Day Years [...] Miscellaneous Notes * Telephone Encounter - Kianna Bejarano - 08/03/2020 0929 EDT Incoming mail from Pt. NPV packet received by CRAIG Escalona. KIANNA BEJARANO 08/03/2020 9:31 documented in this encounter Plan of Treatment Not on file documented as of this encounter Visit Diagnoses Not on filedocumented in this encounter
--- OUTSIDE RECORDS SUMMARY | 2024-02-02 18:27 | XMS_ITS | Encounter Summary ---
Author Organization [facility] Address [address] [place] [address] Care Team Providers Care Staff Attorney Name Role Phone Eloina Brewer NP Primary Care Provider [phone] Patricia Ulloa MD Primary Care Provider Reason for Visit * Reason Onset Date Comments Medical Records 08/30/2020 Encounter Details Date Type Department Care Team (Late st Contact Info) Description 08/30/2020 Telephone [facility] Adult Primary Care - [address] [address] Patricia Ulloa MD [address] [place] [phone] Medical Records Social History Tobacco Use Types Packs/Day Years [...] encounter Miscellaneous Notes * Telephone Encounter - Iqra Rodriges - 08/30/2020 1310 EDT Outgoing call to Eloina Brewer FIXED INCOME PORTFOLIO MANAGER, office. LMTCB Medical record release signed and faxed apprx one month ago. We have not yet received anything. documented in this encounter Plan of Treatment Not on file documented as of this encounter Visit Diagnoses Not on filedocumented in this encounter Care Teams Staff Attorney Relationship Specialty Start Date End Date Eloina Brewer NP [email or web address] [place] [phone] PCP - General 10/16/20 Patricia Ulloa MD [email or web address] [place] [phone] PCP - General Geriatric Medicine 08/31/20 10/15/20 documented as of this encounter
--- OUTSIDE RECORDS SUMMARY | 2024-02-02 18:27 | XMS_ITS | Encounter Summary ---
Author Organization [facility] Address [address] [place] [address] Care Team Providers Care Illuminating Engineer Name Role Phone Patricia Ulloa MD Primary Care Provider Reason for Visit * Reason Onset Date Comments Medical Records 09/06/2020 Med Rec Release Encounter Details Date Type Department Care Team (Late st Contact Info) Description 09/06/2020 Telephone [facility] Adult Primary Care - [address] [address] Patricia Ulloa MD [address] [place] [phone] Medical Records (Med Rec Release) Social History Tobacco Use Types Packs/Day Years [...] * Telephone Encounter - Iqra Rodriges - 09/06/2020 9016 EDT Outgoing mail to Pt. Medical record release forms that must be signed. documented in this encounter Plan of Treatment Not on file documented as of this encounter Visit Diagnoses Not on filedocumented in this encounter Care Teams Illuminating Engineer Relationship Specialty Start Date End Date Patricia Ulloa MD PCP - General Geriatric Medicine 08/31/20 10/15/20 documented as of this encounter
--- OUTSIDE RECORDS SUMMARY | 2024-02-02 18:27 | XMS_ITS | Encounter Summary ---
Author Organization [facility] Address [address] [place] [address] Care Team Providers Care Supervisor Steffen House Name Role Phone Eloina Brewer FENDER REPAIRER Primary Care Provider [phone] Encounter Details Date Type Department Care Team (Latest Contact Info) Description 11/16/2021 Travel Social History Tobacco Use Types Packs/Day [...] suspected to have Coronavirus/COVID-19? No / Unsure 11/16/2021 10:28 EDT documented as of this encounter Functional [...] on filedocumented in this encounter Care Teams Supervisor Steffen House Relationship Specialty Start Date End Date Eloina Brewer, FENDER REPAIRER [address] [place] [phone] PCP - General 10/16/20 documented as of this encounter
--- OUTSIDE RECORDS SUMMARY | 2024-02-02 18:27 | XMS_ITS | Encounter Summary ---
Author Organization [facility] Address [address] [place] [address] Care Team Providers Care Front End Web Designer Name Role Phone Eloina Brewer COMPENSATION ADMINISTRATOR Primary Care Provider [phone] Encounter Details Date Type Department Care Team (Late st Contact Info) Description 09/22/2021 Lab Requisition [facility] Pathology & Laboratory Medicine - [address] [address] Outr Resulting Lab, Provider Social History Tobacco Use Types Packs/Day Years Used Date Smoking Tobacco: Never Assessed PHQ-2 Answer Date Recorded PHQ-2 SUBTOTAL 0 [...] Procedure Name Priority Date/Time Associated Diagnosis Comments ZZCOVID-19 TEST [facility] PCR Today 09/22/2021 20:05 EDT COVID-19 TESTING Routine 09/22/2021 20:0 5 EDT documented in this encounter Results * COVID-19 TEST [facility] PCR (09/22/2021 20:05 EDT) Swab 09/22/2021 20:0 5 EDT 09/23/2021 16:27 EDT Provider Outr Resulting Lab MICROBIOLOGY - GENERAL ORDERABLES Performing Organization Address City/[facility]/ZIP Co de Phone Number [facility] [address] [place] [address] * COVID-19 TESTING (09/22/2021 20:05 EDT) COVID-19 rt-PCR Result Negative Negative 09/24/2021 12:15 EDT [facility] Comment: This test has not been FDA cleared or approved. This test has been authorized by FDA under an EUA for use by authorized laboratories. This test has been authorized only for detection of nucleic acid from 2019-nCoV, not for any other viruses or pathogens. This test is only authorized for the duration of the declaration that circumstances exist justifying the authorization of emergency use of in vitro diagnostic tests for detection and/or diagnosis of 2019-nCoV under section 564(b)(1) of Act, 21 U.S.C ?? 360bbb-3(b) (1), unless the authorization is terminated or revoked sooner. Negative results do not preclude 2019-nCoV infection and should not be used as the sole basis for treatment or other patient management decisions. Negative results must be combined with clinical observations, patient history, and epidemiological information. Testing was performed using the elizabeth SARS-CoV-2 assay ([employer] on the Elizabeth 6800 System Performing Lab Elizabeth [address] [facility] 09/24/2021 12:15 EDT [facility] Swab 09/22/2021 20:0 5 EDT 09/23/2021 16:27 EDT Provider Outr Resulting Lab MICROBIOLOGY - GENERAL ORDERABLES [facility] [address] [place] [address] documented in this encounter Visit Diagnoses Not on filedocumented in this encounter Care Teams Front End Web Designer Relationship Specialty Start Date End Date Eloina Brewer NP [address] [place] [phone] PCP - General 10/16/20 documented as of this encounter
--- OUTSIDE RECORDS SUMMARY | 2024-02-02 18:27 | XMS_ITS | Encounter Summary ---
Author Organization [facility] Address [address] [place] [address] Care Team Providers Care Pad Extractor Tender Name Role Phone Eloina Brewer ELECTRIC SIGN WIRER Primary Care Provider [phone] Encounter Details Date Type Department Care Team (Latest Contact Info) Description 10/02/2021 11:00 EDT Phlebotomy Only [facility] Laboratory Services - [facility] ([address] [phone] Hyperpotassemia (Primary Dx) Social History Tobacco Use Types [...] Diagnosis Comments BASIC METABOLIC PANEL (BMP) Routine 10/02/2021 11:10 EDT Hyperpotassemia documented in this encounter Results * (ABNORMAL) BASIC METABOLIC PANEL (BMP) (10/02/2021 11:10 EDT) Sodium 139 136 - 145 mmol/L 10/02/2021 12:45 EDT [facility] Potassium 4.7 3.5 - 5.0 mmol/L 10/02/2021 12:45 EDT [facility] Chloride 101 96 - 110 mmol/L 10/02/2021 12:45 EDT [facility] CO2 Total 29 22 - 32 mmol/L 10/02/2021 12:45 T [facility] Anion Gap 9 5 - 14 10/02/2021 12:45 [facility] Glucose 99 70 - 100 mg/dL 10/02/2021 12:45 [facility] Calcium 9.3 8.5 - 10.5 mg/dL 10/02/2021 12:45 [facility] BUN 40(H) 10 - 26 mg/dL 10/02/2021 12:45 [facility] Creatinine 1.31(H) 0.52 - 1.04 mg/dL 10/02/2021 12:45 [facility] eGFR 40(L) >60 mL/min/1.73 m2 10/02/2021 12:45 [facility] Blood VENOUS BLOOD / Unknown Venipuncture / Unknown 10/02/2021 11:10 EDT 10/02/2021 11:10 EDT Eloina Brewer NP CHEMISTRY & BLOOD G ORDERABLES [facility] [address] [place] [address] documented in this encounter Visit Diagnoses Diagnosis Hyperpotassemia- Primary documented in this encounter Care Teams Pad Extractor Tender Relationship Specialty Start Date End Date Eloina Brewer NP [address] [place] [phone] PCP - General 10/16/20 documented as of this encounter
--- OUTSIDE RECORDS SUMMARY | 2024-02-02 18:27 | XMS_ITS | Encounter Summary ---
Author Organization [facility] Address [address] [place] [address] Care Team Providers Care Flight Nurse Name Role Phone Patricia Ulloa MD Primary Care Provider Encounter Details Date Type Department Care Team (Late st Contact Info) Description 09/19/2020 Orders Only [facility] Adult Primary Care - [address] [address] Patricia Ulloa MD [address] [place] [phone] Social History Tobacco Use Types Packs/Day Years [...] as of this encounter Progress Notes * Patricia Ulloa MD - 09/19/2020 0828 EDT Meds updated. documented in this encounter Plan of Treatment Not on file documented as of this encounter Visit Diagnoses Not on filedocumented in this encounter Discontinued Medications Medication Sig Discontinue Reason Start Date End Da te ascorbic acid, vitamin C, (VITAMIN C) 100 mg tablet Take 100 mg by mouth daily. 09/19/2020 bisacodyL (DULCOLAX) 5 mg EC tablet Take 5 mg by mouth daily as needed for Constipation. 09/19/2020 documented as of this encounter Care Teams Flight Nurse Relationship Specialty Start Date End Date Patricia Ulloa MD PCP - General Geriatric Medicine 08/31/20 10/15/20 documented as of this encounter
--- OUTSIDE RECORDS SUMMARY | 2024-02-02 18:27 | XMS_ITS | Encounter Summary ---
Author Organization [facility] Address [address] [place] [address] Care Team Providers Care Founder & Ceo Name Role Phone Eloina Brewer FILE DRAWER FINISHER Primary Care Provider [phone] Reason for Visit * Reason Comments Dementia Pt has been living w ith daughter since September due to dementia and unable to live by herself. Daughter states that anger and agression increasing. Daughter states that pt had her fists raised and was threatening and yelling. Daughter states that she can no longer have her mother at home with her. Pt states that she cannot stay there either and is nor happy. Pt Denies any physical complaints. * Auth/Cert Specialty Diagnoses / Procedures Referred By Kayla goodman Referred To Contact Diagnoses Dementia with behavioral disturbance, unspecified dementia type Agitation Referral ID Status Reason Start Date Expiration Date Visits Re quested Visits Authorized [id number] 1 1 Encounter Details Date Type Department Care Team (Late st Contact Info) Description 12/15/2021 14:28 EDT - 12/15/2021 20:15 EDT Emergency [facility] Emergency Department - [facility] [address], [place] [id number] Alo Martinez, PA-C [address] [facility], [address] [place] [address] Dementia associated with other underlying disease with behavioral disturbance (HCC-CMS) (HCC) (HCC-CMS) (Primary Dx); Primary hypertension Discharge Disposition: Home or Self Care Social History Tobacco Use Types Packs/Day Years [...] 12:57 EDT documented as of this encounter Last Filed Vital Signs Vital Sign Reading Time Taken Comments Blood Pressure 180/108 12/15/2021 1739 EDT Pulse 86 12/15/2021 1739 EDT Temperature 36.5 ??C (97.7 ??F) 12/15/2021 1255 EDT Respiratory Rate 22 12/15/2021 1739 EDT Oxygen Saturation 99% 12/15/2021 1739 EDT Inhaled Oxygen Concentration - - Weight 72.6 kg (160 lb) 12/15/2021 1255 EDT Height 165.1 cm (5' 5) 12/15/2021 1255 EDT Body Mass Index 26.63 12/15/2021 1255 EDT documented in this encounter Functional Status Functional Status Response [...] No 12/03/2017 documented as of this encounter Discharge Instructions * Discharge Instructions* Alo Martinez PA-C - 12/15/2021 19:15 EDT Recommend taking Seroquel 50 mg at night and you may use once during the day as needed. coordinator of rehabilitation services is working on a plan for housing assistance documented in this encounter Medications at Time of Discharge Medication Sig Dispensed Refills Start Date End Date metoprolol SUCCinate (TOPROL-XL) 25 mg tablet Take 25 mg by mouth daily. 07/26/2020 QUEtiapine (SEROQUEL) 25 mg tablet Take 2 Tablets by mouth 2 times daily. 30 Tablet 12/15/2021 senna (SENOKOT) 8.6 mg tablet Take 1 Tab by mouth daily as needed. cholecalciferol, Vitamin D3, 25 mcg (1,000 unit) tablet Take 5,000 Units by mouth daily. 12/18/2021 lisinopriL (PRINIVIL) 10 mg tablet Take 10 mg by mouth daily. 06/21/2020 12/18/2021 documented as of this encounter Ordered Prescriptions Prescription Sig Dispensed Refills Start Date End Da te QUEtiapine (SEROQUEL) 25 mg tablet Take 2 Tablets by mouth 2 times daily. 30 Tablet 12/15/2021 documented in this encounter Discharge Disposition Disposition Code Departure Means Destination Home or Self [facility] documented in this encounter Progress Notes * Agatha Kumar - 12[facility]15[facility]2021 [facility] Met with patient and her daughter, Yris who has brought her mom here as the living environment has become intolerable. She describes the environment as toxic and contentious and describes terrible name callign amongst the other behavioral concerns. Yris expresses understanding of her mother's functioning through the lens of dementia and memory loss. She says that though today was the breaking pointfor her this has been an increasingly stressful and situation for quite some time. Her mother previous lived with her and her for a year following a hospital admission. SHe was able to transition to an independent apartment in a complex with close friends near by. That situation deteriorated with time as her mother proved unable to adequately cre for herself, including managing her medications. She again was hospitalized which again resulted in her dischrging home to them. Yris had hopedshe would be able to return to independent living but instead her functioning her declined instead of improved. She also recently had a fall which solidified that she would need a higher level of care, not less. Meredith is tearful throughout the conversation. It is evident that while she can followthe dialogue she is not retaining content of the conversation as it progresses. This is clearly stress for her. She does agree that the home environment has been very difficult for every one. She is also preoccupied with the information she received incidentally in the ED that she has a mass on herlung that she has decided is cancer. Yris reports that her mom is not currently established with a local PCP but that she has an appointment at the end of this month. This means they have needed to continue to work with provider Eloina Brewer in [facility] which has been tough given distance. She also confirms that as such, she is not connected with a health care coach through a local PC and has not had any support in seeking a termination clerk care bed at a SNF. I did not clarify if she has made any attempts as the conversation steered jovany different direction. She did say that she has an appointment with Melani Spears a week from Friday to begin LTC Medicaid application process. Yris is adament and tearful that she doesn't have the capacity to continue to care for her mother. We discuss hospital admission and I tell her that it is not likely that she will be admitted as thereis not a specific acute medical need. We conclude conversation so that I cn discuss with LOS Martinez. --Agatha Kumar [facility] social studies teacher documented in this encounter ED Notes * Treasuer Watkins RN - 12/15/20212014 EDT Pt daughter received discharge information including 1 rx. Pt daughter verbalized understanding of discharge plan. Pt was very resistant to leaving the hospital. This nurse and pt daughter attempted to calm patient, and help her understand she would be safe at home. Pt demanded to be allowed to stay in the hospital due to not feeling safe at daughters house. Pt able to understand that she was at the hospital due to events of the previous night, but not able to understand exactly what happened, pt aware that daughter is trying to find new living arrangement for her. Pt verbalized Yris does not want me at her house due to last night being so bad. came to speak with patient to explain that she has no medical issue to be admitted to the hospital. Pt stated this is just not fair, and started crying. After much discussion pt convinced to go home. Pt assisted to exit via wheelchair. Atcar pt refused to get into the car to go home. Pt eventually assisted into the car. Pt very confused, and tearful. * Alo Martinez PA-C - 12/15/2021 1494 EDT Images from the original note were not included. Emergency Department Visit Assessment and ED Course Patient brought in by daughter who is distressed with living situation with her mother. After evaluation patient does have hypertension chronic kidney disease but there was no reason to bring the patient into the emergency department. Daughter was very frustrated and is hoping to get her mother into a correction. She does have an appointment coming up with aging well, social security benefits interviewer was involved with this case and spent a large amount of time with both patient and daughter at this time beinga Friday night it would be impossible to get her into a correction social security benefits interviewer will stay involved with her. The daughter agreed to take the patient home with recommendation per attending physi alejandra to start the patient on Seroquel this was discussed with Dr. Asim Gasca. Patient will start on 50 mg nightly +50 mg as needed. Mother upset over going home also. Difficult family situation the case was discussed with hospitalist who adamantly denied the patient coming into the hospital for nonmedical needs Final diagnoses: None Disposition: No disposition on file Chief complaint: health check, dementia HPI Meredith Thornton is a 86 y.o. female arrives with her daughter. Daughter is in tears stating that shecan no longer live with her mother who has been living with her since September. They have been looking for correction placement though the patient does not want to go. The daughter states that her mother is toxic she is constantly arguing and feels that she can no longer take her home. The patient hasno medical complaints and was brought in under the assumption that she was here for a medical check. Patient does have dementia forgetful. Daughter states that their relationship is toxic and she cannot take care of her anymore. Patient lives with both daughter and son-in-law History was provided by: Patient and daughter patient's pertinent PMH, FH, SH were reviewed and edited as necessary. Review of Systems Constitutional: Negative for chills, diaphoresis, fever, malaise/fatigue and weight loss. HENT: Negative for tinnitus. Eyes: Negative for photophobia. Respiratory: Negative for cough. Cardiovascular: Negative for chest pain. Gastrointestinal: Negative for abdominal pain, blood in stool, constipation, diarrhea, melena, nausea and vomiting. Genitourinary: Negative for dysuria, frequency and urgency. Musculoskeletal: Negative for neck pain. Skin: Negative for rash. Neurological: Negative for sensory change, weakness and headaches. Endo/Heme/Allergies: Negative for polydipsia. Psychiatric/Behavioral: Positive for memory loss. Negative for hallucinations, substance abuse and suicidal ideas. The patient is not nervous/anxious and does not have insomnia. A 10-point review of systems was performed. The patient answered negative to all questions with theexceptions of those explicitly detailed as positives in the HPI. Pertinent negatives are also explicitly stated. Physical Exam BP (!) 230/76 (BP Cuff Location: Right arm, BP Patient Position: Held) Pulse 81 Temp 36.5 ??C (97.7 ??F) (Oral) Resp 18 Ht 165.1 cm (65) Wt 72.6 kg (160 lb) SpO2 98% BMI 26.63 kg/m?? A medical screening exam was performed. Physical Exam Constitutional: General: She is not in acute distress. Appearance: She is well-developed and well-nourished. HENT: Mouth/Throat: Pharynx: Oropharynx is clear. Eyes: Extraocular Movements: EOM normal. Pupils: Pupils are equal, round, and reactive to light. Cardiovascular: Rate and Rhythm: Normal rate. Pulmonary: Effort: Pulmonary effort is normal. No respiratory distress or retractions. Breath sounds: Normal breath sounds. Chest: Chest wall: No tenderness. Abdominal: General: There is no distension. Palpations: Abdomen is soft. Tenderness: There is no abdominal tenderness. There is no rebound. Musculoskeletal: General: Normal range of motion. Cervical back: Normal range of motion. Skin: General: Skin is warm. Capillary Refill: Capillary refill takes less than 2 seconds. Findings: No erythema or rash. Neurological: Mental Status: She is alert and oriented to person, place, and time. Coordination: Coordination normal. Psychiatric: Attention and Perception: Attention normal. Mood and Affect: Mood and affect and mood normal. Speech: Speech normal. She is communicative. Speech is not rapid and pressured or slurred. Behavior: Behavior normal. Behavior is cooperative. Thought Content: Thought content is not paranoid or delusional. Thought content does not include homicidal ideation. Thought content does not include homicidal plan. Cognition and Memory: Cognition is impaired. Memory is impaired. She exhibits impaired recent memory and impaired remote memory. Judgment: Judgment normal. Lab Results COMPREHENSIVE METABOLIC PANEL (CMP) (Final result) Component (Lab Inquiry) Collection Time Result Time NA K CL CO2 GLU 12/15/21 15:18:00 12/15/21 15:53:31 142 4.5 102 23 111 Collection Time Result Time BUN CREA eGFR TP ALB 12/15/21 15:18:00 12/15/21 15:53:31 22 1.20 44 7.3 4.2 Collection Time Result Time ALKP AST ALT TBIL LINO 12/15/21 15:18:00 12/15/21 15:53:31 96 21 9 0.5 9.4 Collection Time Result Time AGRAT AGAP 12/15/21 15:18:00 12/15/21 15:53:31 1.4 17 Final result HOLD BLUE TOP (Final result) Component (Lab Inquiry) Collection Time Result Time HOLD 12/15/21 15:18:00 12/15/21 16:30:06 Hold Final result HOLD GREEN TOP (Final result) Component (Lab Inquiry) Collection Time Result Time HOLD 12/15/21 15:18:00 12/15/21 16:30:06 Hold Final result COMPLETE BLOOD COUNT AND DIFFERENTIAL (Final result) Component (Lab Inquiry) Collection Time Result Time WBC RBC HGB HCT MCV 12/15/21 15:17:00 12/15/21 15:30:50 9.27 4.42 13.2 39.3 89 Collection Time Result Time MCH MCHC RDW RDW-SD PLTC 12/15/21 15:17:00 12/15/21 15:30:50 29.9 33.6 14.2 45.7 219 Collection Time Result Time MPV ANEUT ALYMP AMONO EOSPCT 12/15/21 15:17:00 12/15/21 15:30:50 11.0 75.1 17.4 6.0 0.2 Collection Time Result Time BASOPCT IGRAN AANEU AALYM ABSOLUTE 12/15/21 15:17:00 12/15/21 15:30:50 0.5 0.8 6.96 1.61 0.56 Collection Time Result Time AAGABRIELLA ROOT DTYP 12/15/21 15:17:00 12/15/21 15:30:50 0.02 0.05 0.07 Auto Final result POCT CSN BARCODE URINE DIPSTICK (Final result) Result time 12/15/21 15:17:46 Final result POCT URINE CLINITEK (DIPSTICK) - DOES NOT REFLEX (Final result) Result time 12/15/21 16:30:05 Final result Narrative: The following orders were created for panel order POCT URINE CLINITEK (DIPSTICK) - DOES NOT REFLEX. Procedure Abnormality Status --------- ------ POCT URINE DIPSTICK, CLI...[[id number]] Abnormal Final result POCT CSN BARCODE URINE D...[[id number]] Final result Please view results for these tests on the individual orders. POCT URINE DIPSTICK, CLINITEK (Final result) Component (Lab Inquiry) Collection Time Result Time COLOR U CLARITY U GLUCOSE, U BILIRUBIN, KETONES U 12/15/21 15:01:00 12/15/21 15:03:06 Yellow Clear Negative Negative 1+ Collection Time Result Time USG UBLOOD PH, UR Protein, UA UROBILINOG 12/15/21 15:01:00 12/15/21 15:03:06 1.020 Negative 5.5 Negative 0.2 Collection Time Result Time NITRITE ULEU HN LAB COMMENT (CLINITEK, UR) 12/15/21 15:01:00 12/15/21 15:03:06 Negative Trace Test performed at Emergency Department Final result Laboratory data was reviewed and independently interpreted. Procedures Procedures * Rowena Fowler RN - 12/15/2021 1450 EDT Pt daughter brings her in b/c she feels her mental status is declining. Daughter states that pt hasstarted yelling more often, having severe mood swings and has shaken her fists at her on many occasions. This is new behavior over the last month. Pt does have a hx of dementia. Pt is having a difficult time recalling events. Pt states she feels as though her daughter is the problem. The pt currently lives with daughter and son in-law. P/t this arrangement, pt had own apartment and daughter stated that she was not safe there. Pt cannot recall if she took her medication today and her daughter states the usual pills were missing so it was possible. They actually start arguing over this. Daughter is in tears when discussing mother's situation with television script writer. She states that she just cannot take care of her mother any more and she has done everything she possibly can for her, yet she just keeps declining. Pt is calm and cooperative with television script writer though is argumentative with her daughter. She tells television script writer that the daughter is the problem. Pt denies any physical complaints. Pt is able to state the year and where she is though is unable to answer other questions pertaining to time. Pt is very unsteady on her feet. Per daughter, pt fell 3 weeks ago and hit her head. Pt is not on blood thinners. documented in this encounter Plan of Treatment Not on file documented as of this encounter Procedures Procedure Name Priority Date/Time Associated Diagnosis Comments HOLD GREEN TOP Routine 12/15/2021 15:18 EDT HOLD BLUE TOP Routine 12/15/2021 15:18 EDT COMPREHENSIVE METABOLIC PANEL (CMP) STAT 12/15/2021 15:18 EDT POCT CSN BARCODE URINE DIPSTICK STAT 12/15/2021 15:17 EDT COMPLETE BLOOD COUNT AND DIFFERENTIAL STAT 12/15/2021 15:17 EDT POCT URINE CLINITEK (DIPSTICK) - DOES NOT REFLEX STAT 12/15/2021 15:01 EDT POCT URINE DIPSTICK, CLINITEK STAT 12/15/2021 15:01 EDT documented in this encounter Results * HOLD GREEN TOP (12/15/2021 15:18 EDT) Hold Hold 12/15/2021 16:30 EDT [facility] Blood VENOUS BLOOD / Unknown Venipuncture / Unknown 12/15/2021 15:18 EDT 12/15/2021 15:21 EDT Alo Martinez PA-C LAB INFO SERVICE AND SUPPORT & PHONE RESULT Performing Organization Address [facility] Co de Phone Number [facility] [address] [place] [address] * HOLD BLUE TOP (12/15/2021 15:18 EDT) Hold Hold 12/15/2021 16:30 EDT [facility] Blood VENOUS BLOOD / Unknown Venipuncture / Unknown 12/15/2021 15:18 EDT 12/15/2021 15:21 EDT Alo Martinez PA-C LAB INFO SERVICE AND SUPPORT & PHONE RESULT Performing Organization Address [facility] de Phone Number [facility] [address] [place] [address] * (ABNORMAL) COMPREHENSIVE METABOLIC PANEL (CMP) (12/15/2021 15:18 EDT) Sodium 142 136 - 145 mmol/L 12/15/2021 15:53 [facility] Potassium 4.5 3.5 - 5.0 mmol/L 12/15/2021 15:53 [facility] Chloride 102 96 - 110 mmol/L 12/15/2021 15:53 [facility] CO2 Total 23 22 - 32 mmol/L 12/15/2021 15:53 [facility] Glucose 111(H) 70 - 100 mg/dL 12/15/2021 15:53 [facility] BUN 22 10 - 26 mg/dL 12/15/2021 15:53 [facility] Creatinine 1.20(H) 0.52 - 1.04 mg/dL 12/15/2021 15:53 [facility] eGFR 44(L) >60 mL/min/1.7 3m2 12/15/2021 15:53 [facility] Total Protein 7.3 6.3 - 8.2 g/dL 12/15/2021 15:53 [facility] Albumin 4.2 3.4 - 4.9 g/dL 12/15/2021 15:53 [facility] Alkaline Phosphatase 96 38 - 126 U/L 12/15/2021 15:53 [facility] AST 21 15 - 46 U/L 12/15/2021 15:53 [facility] ALT 9 <35 U/L 12/15/2021 15:53 [facility] Bilirubin, Total 0.5 <1.4 mg/dL 12/16/19 15:53 [facility] Calcium 9.4 8.5 - 10.5 mg/dL 12/15/2021 15:53 [facility] Albumin/Globulin Ratio 1.4 1.0 - 2.5 12/15/2021 15:53 [facility] Anion Gap 17(H) 5 - 14 12/15/2021 15:53 [facility] Blood VENOUS BLOOD / Unknown Venipuncture / Unknown 12/15/2021 15:18 EDT 12/15/2021 15:21 EDT Alo Martinez PA-C CHEMISTRY & BLOOD GA S ORDERABLES [facility] [address] [place] [address] * POCT CSN BARCODE URINE DIPSTICK (12/15/2021 15:17 EDT) Urine URINE SPECIMEN COLLECTION, CLEAN CATCH / Unknown Urine Collect / Unknown 12/15/2021 15:17 EDT 12/15/2021 15:17 EDT Alo Martinez PA-C LAB INFO SERVICE AND SUPPORT & PHONE RESULT [facility] [address] [place] [address] * (ABNORMAL) COMPLETE BLOOD COUNT AND DIFFERENTIAL (12/15/2021 15:17 EDT) WBC 9.27 4.00 - 12.40 K/cmm 12/15/2021 15:[address] [facility] RBC 4.42 3.86 - 5.04 M/cmm 12/15/2021 15:30 [facility] Hemoglobin 13.2 11.6 - 15.2 gm/dL 12/15/2021 15:30 [facility] HCT 39.3 34.9 - 44.4 % 12/15/2021 15:30 [facility] MCV 89 81 - 98 fl 12/15/2021 15:30 [facility] MCH 29.9 26.7 - 33.3 pg 12/15/2021 15:30 [facility] MCHC 33.6 32.1 - 35.9 gm/dL 12/15/2021 15:30 [facility] RDW-CV 14.2 <14.7 % 12/15/2021 15:30 [facility] RDW-SD 45.7 <50.4 fl 12/15/2021 15:30 [facility] PLT 219 141 - 377 K/cmm 12/15/2021 15:30 [facility] MPV 11.0 9.5 - 12.7 fl 12/15/2021 15:30 [facility] % Neutrophils 75.1 % 12/15/2021 15:30 [facility] % Lymphocytes 17.4 % 12/15/2021 15:30 [facility] % Monocytes 6.0 % 12/15/2021 15:30 [facility] % Eosinophils 0.2 % 12/15/2021 15:30 [facility] % Basophils 0.5 % 12/15/2021 15:30 [facility] % Immature Grans 0.8 % 12/16/19 15:30 T [facility] Absolute Neutrophils 6.96 2.20 - 8.85 K/cmm 12/15/2021 15:30 [facility] Absolute Lymphocytes 1.61 1.09 - 3.30 K/cmm 12/15/2021 15:30 [facility] Absolute Monocytes 0.56 0.10 - 0.80 K/cmm 12/15/2021 15:30 [facility] Absolute Eosinophils 0.02(L) 0.03 - 0.61 K/cmm 12/15/2021 15:30 [facility] ABS Basophils 0.05 0.01 - 0.11 K/cmm 12/15/2021 15:30 [facility] Absolute Immature Grans 0.07(H) 0.00 - 0.06 K/cmm 12/15/2021 15:30 [facility] Type of Differential: Auto 12/15/2021 15:30 [facility] Blood VENOUS BLOOD / Unknown Venipuncture / Unknown 12/15/2021 15:17 EDT 12/15/2021 15:21 EDT Alo Martinez PA-C PACKAGES & DNA PROBE ORDERABLES [facility] [address] [place] [address] * (ABNORMAL) POCT URINE DIPSTICK, CLINITEK (12/15/2021 15:01 EDT) Color, UA Yellow Yellow 12/15/2021 15:03 [facility] Clarity, UA Clear Clear 12/15/2021 15:03 [facility] Glucose, UA Negative Negative 12/15/2021 15:03 [facility] Bilirubin, UA Negative Negative 12/15/2021 15:03 [facility] Ketones, UA 1+(A) Negative 12/15/2021 15:03 [facility] Specific [facility], Urine 1.020 1.001 - 1.035 12/15/2021 15:03 EDT [facility] Blood, UA Negative Negative 12/15/2021 15:03 EDT [facility] pH, UA 5.5 4.6 - 8.0 12/15/2021 15:03 EDT [facility] Protein, UA Negative Negative 12/15/2021 15:03 T [facility] Urobilinogen, UA 0.2 0.2 - 1.0 mg/dL 12/15/2021 15:03 T [facility] Nitrite, UA Negative Negative 12/15/2021 15:03 [facility] Leuk Esterase Trace(A) Negative 12/15/2021 15:03 [facility] HN LAB COMMENT (CLINITEK, UR) Test performed at Emergency Department 12/15/2021 15:03 [facility] Urine URINE SPECIMEN COLLECTION, CLEAN CATCH / Unknown 12/15/2021 15:01 EDT 12/15/2021 15:03 EDT Alo Martinez PA-C POINT OF CARE TEST O RDERABLES Performing Organization Address City/State/[facility] Co de Phone Number [facility] [address] [place] [address] documented in this encounter Visit Diagnoses Diagnosis Dementia associated with other underlying disease with behavioral disturbance ([facility])- Primary Primary hypertension Unspecified essential hypertension documented in this encounter Administered Medications Inactive Administered Medications - up to 3 most recent administrations Medication Order MAR Action Action Date Dose Rate Site QUEtiapine (SEROQUEL) tablet 50 mg 50 mg, oral, Once (Without Time Specified), 1 dose, Starting on 12/15/21 at 1915, Until 12/15/21 at 1945, STAT Given 12/15/2021 19:45 EDT 50 mg documented in this encounter Active and Recently Administered Medications Times are shown in EDT. Scheduled Medication Order 12/13/2021 12/14/2021 12/15/2021 QUEtiapine (SEROQUEL) tablet 50 mg (COMPLETED) 50 mg, oral, Once (Without Time Specified), 1 dose, Starting on 12/15/21 at 1915, Until 12/15/21 at 1945, STAT 1945 (Given - Provid er: Treasure Watkins RN) documented in this encounter Care Teams Founder & Ceo Relationship Specialty Start Date End Date Eloina Brewer NP [address] [place] [phone] PCP - General 10/16/20 documented as of this encounter
--- OUTSIDE RECORDS SUMMARY | 2024-02-02 18:27 | XMS_ITS | Encounter Summary ---
Author Organization [facility] Address [address] [place] [address] Care Team Providers Care Facility Attendant Name Role Phone IvanlisetteEloina [employer]PERVISOR Primary Care Provider Reason for Visit * Reason Comments Constipation several days since l ast BM. Pt lives with daughter and is vague historian. asked daughter for laxitative several days ago. Per daughter does not drink enough fluids. Pt states nausea after eating. Encounter Details Date Type Department Care Team (Late st Contact Info) Description 11/16/2021 12:31 EDT - 11/16/2021 14:32 EDT Emergency [facility] Emergency Department - [place] [address] [place] [phone] Jakob Larios PA-C [address] [facility] [address] [place] [id number] Constipation, unspecified constipation type (Primary Dx) Discharge Disposition: Home or Self Care Social [...] 10:28 EDT documented as of this encounter Last Filed Vital Signs Vital Sign Reading Time Taken Comments Blood Pressure 142/88 11/16/2021 1249 EDT Pulse 69 11/16/2021 1026 EDT Temperature 36.1 ??C (97 ??F) 11/16/2021 1026 EDT Respiratory Rate 16 11/16/2021 1026 EDT Oxygen Saturation 96% 11/16/2021 1026 EDT Inhaled Oxygen Concentration - - Weight 74.8 kg (165 lb) 11/16/2021 1026 EDT Height 165.1 cm (5' 5) 11/16/2021 1026 EDT Body Mass Index 27.46 11/16/2021 1026 EDT documented in this encounter Functional Status [...] this encounter Discharge Instructions * Discharge Instructions* Jakob Larios PA-C - 11/16/2021 14:20 EDT Continue MiraLAX 1-2 times daily. Take senna 1 tablet daily. Call your primary care doctor today to arrange a follow-up appointment next week. You should discuss your medications and possibly recheck your lab work. Please return to the ER for any fevers, vomiting, unable to eat or drink, abdominal pain. documented in this encounter Medications at Time of Discharge Medication Sig Dispensed Refills Start Date End Date metoprolol SUCCinate (TOPROL-XL) 25 mg tablet Take 25 mg by mouth daily. 07/26/2020 senna (SENOKOT) 8.6 mg tablet Take 1 Tab by mouth daily as needed. cholecalciferol, Vitamin D3, 25 mcg (1,000 unit) tablet Take 5,000 Units by mouth daily. 12/18/2021 lisinopriL (PRINIVIL) 10 mg tablet Take 10 mg by mouth daily. 06/21/2020 12/18/2021 documented as of this encounter Discharge Disposition Disposition Code Departure Means Destination Home or Self Jail documented in this encounter ED Notes * Jeanette Booker RN - 11/16/2021 1424 EDT Discharge instructions and follow up care reviewed with pt and daughter. verbalized understanding. * Jakob Larios PA-C - 11/16/2021 1258 EDT Emergency Department Visit Assessment and ED Course 85-year-old female presents for constipation and decreased appetite today. She has no abdominal pain on exam. No tenderness. She is not impacted. She tolerated an enema well. Labs are notable for a mild bump in her creatinine but she has no signs of an acute kidney injury. She is appropriate for discharge at this time. She will closely follow-up with her PCP for recheck in her labs and discuss fur ther medication management as I am concerned her meds may be contributing to her kidney disease. The daughter is comfortable arranging follow-up with her PCP. I reviewed the case with Dr. Castellanos and we agree she is appropriate for discharge. I urged regular meals and fluids and the patient believes she can do this at home. Final diagnoses: None Disposition: No disposition on file Chief complaint: constipation HPI Meredith [place] is a 85 y.o. female with a history of hypertension who comes in for constipation. She has not moved her bowels in 6 days. She normally moves her bowels every other day. She took 2 doses of Dulcolax last night without relief. She denies any abdominal pain but has had some nausea and is not eating well. No vomiting. She notes some increased difficulty walking recently. Some increasing weakness. She denies any headaches, chest pain or shortness of breath, fevers or cough. No recent difficulty urinating. She recently finished a course of antibiotics for a lung infection. She did have a PET scan in October out of concern that this may be malignancy and there is no cancer found. ROS See above Physical Exam BP (!) 142/88 Pulse 69 Temp 36.1 ??C (97 ??F) (Temporal) Resp 16 Ht 165.1 cm (65) Wt 74.8 kg (165 lb) SpO2 96% BMI 27.46 kg/m?? A medical screening exam was performed. Physical Exam BP (!) 142/88 Pulse 69 Temp 36.1 ??C (97 ??F) (Temporal) Resp 16 Ht 165.1 cm (65) Wt 74.8 kg (165 lb) SpO2 96% BMI 27.46 kg/m?? General appearance: alert, oriented. Appears comfortable HEENT: conjunctiva pink, sclera white. Head atraumatic. Neck: supple, no lymphadenopathy, full range of motion. Non tender on palpation Cardiac: RRR, no murmur Pulmonary: clear to ausculation bilaterally Abdomen soft and non tender. No masses. Rectal with stool but no impaction. No mass. Neuro: Eoms intact, no nystagmus. Pupils equal and reactive bilaterally. Soft palate rises symmetrically. Masseter strength symmetric. Facial movements symmetric. Shoulder shrug symmetric. . Strength5/5 in all extremities. Gait normal. Skin: warm, dry, no rash Psych: normal affect, behavior appropriate. Laboratory data was reviewed and independently interpreted. Procedures Procedures documented in this encounter Plan of Treatment Not on file documented as of this encounter Procedures Procedure Name Priority Date/Time Associated Diagnosis Comments BASIC METABOLIC PANEL (BMP) STAT 11/16/2021 13:28 EDT COMPLETE BLOOD COUNT AND DIFFERENTIAL STAT 11/16/2021 13:27 EDT documented in this encounter Results * (ABNORMAL) BASIC METABOLIC PANEL (BMP) (11/16/2021 13:28 EDT) Sodium 134(L) 136 - 145 mmol/L 11/16/2021 13:50 EDT [facility] Potassium 3.9 3.5 - 5.0 mmol/L 11/16/2021 13:50 EDT [facility] Chloride 99 96 - 110 mmol/L 11/16/2021 13:50 [facility] CO2 Total 28 22 - 32 mmol/L 11/16/2021 13:50 [facility] Anion Gap 7 5 - 14 11/16/2021 13:50 [facility] Glucose 117(H) 70 - 100 mg/dL 11/16/2021 13:50 [facility] Calcium 8.5 8.5 - 10.5 mg/dL 11/16/2021 13:50 [facility] BUN 55(H) 10 - 26 mg/dL 11/16/2021 13:50 [facility] Creatinine 1.64(H) 0.52 - 1.04 mg/dL 11/16/2021 13:50 [facility] eGFR 31(L) >60 mL/min/1.73 m2 11/16/2021 13:50 [facility] Blood VENOUS BLOOD / Unknown Venipuncture / Unknown 11/16/2021 13:28 EDT 11/16/2021 13:33 EDT Jakob Larios PA-C CHEMISTRY & BL OOD GAS ORDERABLES [facility] [address] [place] [address] * (ABNORMAL) COMPLETE BLOOD COUNT AND DIFFERENTIAL (11/16/2021 13:27 EDT) WBC 6.68 4.00 - 12.40 K/cmm 11/16/2021 13:45 [facility] RBC 5.04 3.86 - 5.04 M/cmm 11/16/2021 13:45 [facility] Hemoglobin 14.8 11.6 - 15.2 gm/dL 11/16/2021 13:45 [facility] HCT 44.4 34.9 - 44.4 % 11/16/2021 13:45 [facility] MCV 88 81 - 98 fl 11/16/2021 13:45 [facility] MCH 29.4 26.7 - 33.3 pg 11/16/2021 13:45 [facility] MCHC 33.3 32.1 - 35.9 gm/dL 11/16/2021 13:45 [facility] RDW-CV 13.5 <14.7 % 11/16/2021 13:45 [facility] RDW-SD 43.7 <50.4 fl 11/16/2021 13:45 [facility] PLT 142 141 - 377 K/cmm 11/16/2021 13:45 [facility] MPV 11.9 9.5 - 12.7 fl 11/16/2021 13:45 [facility] % Neutrophils 71.7 % 11/16/2021 13:45 [facility] % Lymphocytes 16.2 % 11/16/2021 13:45 [facility] % Monocytes 11.1 % 11/16/2021 13:45 [facility] % Eosinophils 0.1 % 11/16/2021 13:45 [facility] % Basophils 0.3 % 11/16/2021 13:45 [facility] % Immature Grans 0.6 % 11/17/19 13:45 [facility] Absolute Neutrophils 4.79 2.20 - 8.85 K/cmm 11/16/2021 13:45 [facility] Absolute Lymphocytes 1.08(L) 1.09 - 3.30 K/cmm 11/16/2021 13:45 [facility] Absolute Monocytes 0.74 0.10 - 0.80 K/cmm 11/16/2021 13:45 [facility] Absolute Eosinophils 0.01(L) 0.03 - 0.61 K/cmm 11/16/2021 13:45 [facility] ABS Basophils 0.02 0.01 - 0.11 K/cmm 11/16/2021 13:45 [facility] Absolute Immature Grans 0.04 0.00 - 0.06 K/cmm 11/16/2021 13:45 EDT [facility] Type of Differential: Auto 11/16/2021 13:45 EDT [facility] Blood VENOUS BLOOD / Unknown Venipuncture / Unknown 11/16/2021 13:27 EDT 11/16/2021 13:33 EDT Jakob Larios PA-C PACKAGES & DNA PROBE ORDERABLES [facility] [address] [place] [address] documented in this encounter Visit Diagnoses Diagnosis Constipation, unspecified constipation type- Primary documented in this encounter Administered Medications Inactive Administered Medications - up to 3 most recent administrations Medication Order MAR Action Action Date Dose Rate Site disimpaction enema 1 Bottle 1 Bottle, rectal, NOW X1, 1 dose, On Fri11/16/21 at 1315, STAT Given 11/16/2021 13:52 EDT 1 Bottle documented in this encounter Active and Recently Administered Medications Times are shown in EDT. Scheduled Medication Order 11/14/2021 11/15/2021 11/16/2021 disimpaction enema 1 Bottle (COMPLETED) 1 Bottle, rectal, NOW X1, 1 dose, On Fri11/16/21 at 1315, STAT 1352 (Given - Provid er: Jeanette Booker RN) documented in this encounter Orders Medications Ordered That Naveen ht Not Have Been Administered Count Last Ordered Date First Ordered Date disimpaction enema 1 Bottle 1 11/16/2021 documented in this encounter Care Teams Facility Attendant Relationship Specialty Start Date End Date Eloina Brewer NP [address] [place] [address] [address] [place] [phone] PCP - General 10/16/20 documented as of this encounter
--- OUTSIDE RECORDS SUMMARY | 2024-02-02 18:27 | XMS_ITS | Encounter Summary ---
Author Organization [facility] Address [address] [place] [address] Care Team Providers Care Telecommunications Linesworker Name Role Phone Eloina Brewer LOG HANDLER Primary Care Provider Encounter Details Date Type Department Care Team (Latest Contact Info) Description 12/12/2021 Travel Social History Tobacco Use Types Packs/Day [...] suspected to have Coronavirus/COVID-19? No / Unsure 12/12/2021 10:22 EDT documented as of this encounter Functional [...] on filedocumented in this encounter Care Teams Telecommunications Linesworker Relationship Specialty Start Date End Date Eloina Brewer, LOG HANDLER [address] [place] [phone] PCP - General 10/16/20 documented as of this encounter
--- OUTSIDE RECORDS SUMMARY | 2024-02-02 18:27 | XMS_ITS | Encounter Summary ---
Author Organization [facility] Address [address] [place] [address] Care Team Providers Care Motor Coach Bus Driver Name Role Phone Unavailable Primary Care Provider Unavailabl e Encounter Details Date Type Department Care Team (Latest Contact Info) Description 07/02/2007 11:12 EST - 07/02/2007 11:59 EST Hospital Encounter [facility] Emergency Department - [facility] [address] [place], [place] [id number] Emergency, Default, MD Discharge Disposition: Home or Self Care Social History Tobacco Use Types Packs/Day Years Used Date Smoking Tobacco: Never Assessed Sex and Gender Information Value Date Recorded Sex Assigned at Not on file Gender Identity Female 07/03/2020 13:32 EST Sexual Orientation Not on file documented as of this encounter Discharge Disposition Disposition Code Departure Means Destination Home or Self Care documented in this encounter Plan of Treatment Not on file documented as of this encounter Procedures Procedure Name Priority Date/Time Associated Diagnosis Comments CT HEAD WO CONTRAST 07/02/2007 1 3:09 EST TROPONIN I Routine 07/02/2007 13:00 EST COMPLETE BLOOD COUNT AND DIFFERENTIAL Routine 07/02/2007 13:00 EST BUN Routine 07/02/2007 13:00 EST GLUCOSE, SERUM Routine 07/02/2007 13:00 EST CREATININE Routine 07/02/2007 13:00 EST ELECTROLYTES Routine 07/02/2007 13:00 EST documented in this encounter Results * CT HEAD WO CONTRAST (07/02/2007 13:09 EST) Anatomical Region Laterality Modality Other 07/02/2007 13:0 9 EST Narrative 10/24/2008 6:00 EDT tremor/confusion. r/o mass CT HEAD W/O CONTRAST Jul 02, 2007 1:09:59 PM Clinical History: tremor/confusion. r/o mass Comparison: None. Technique: Transverse non-contrast scans of the brain were performed from the foramen magnum to the vertex. Findings: The ventricles and extra-axial CSF spaces are normal for age. There is no mass effect or midline shift. No intracranial hemorrhage is seen. Multiple left and right tiny hypodensities are seen within the basal ganglia consistent with old lacunar infarcts. The orbits are unremarkable. The maxillary and ethmoid sinuses demonstrate mild mucosal thickening, while the sphenoid and frontal sinuses appear normal. No sinus fluid level is identified. Impression: 1. No mass effect or intracranial hemorrhage identified. No CT findings to explain patient's current symptoms. 2. Old lacunar infarcts. 3. Mild mucosal thickening of the maxillary and ethmoid sinuses consistent with mild inflammatory changes. I have personally reviewed the images and the above interpretation and agree with the findings. Procedure Note Reno Bowling MD / Jony Angel, DO - 10/24/2008 tremor/confusion. r/o mass CT HEAD W/O CONTRAST Jul 02, 2007 1:09:59 PM Clinical History: tremor/confusion. r/o mass Comparison: None. Technique: Transverse non-contrast scans of the brain were performed from the foramen magnum to the vertex. Findings: The ventricles and extra-axial CSF spaces are normal for age. There is no mass effect or midline shift. No intracranial hemorrhage is seen. Multiple left and right tiny hypodensities are seen within the basal ganglia consistent with old lacunar infarcts. The orbits are unremarkable. The maxillary and ethmoid sinuses demonstrate mild mucosal thickening, while the sphenoid and frontal sinuses appear normal. No sinus fluid level is identified. Impression: 1. No mass effect or intracranial hemorrhage identified. No CT findings to explain patient's current symptoms. 2. Old lacunar infarcts. 3. Mild mucosal thickening of the maxillary and ethmoid sinuses consistent with mild inflammatory changes. I have personally reviewed the images and the above interpretation and agree with the findings. Roderick Graves MD IMG CT ORDERABLES * (ABNORMAL) HEMAGRAM AND DIFFERENTIAL (07/02/2007 13:00 EST) WBC 9.03 4.0 - 12.4 K/cmm [facility] RBC 4.90 3.86 - 5.04 M/cmm [facility] Hemoglobin 14.7 11.6 - 15.2 gm/dl [facility] HCT 43.1 34.9 - 44.4 % [facility] MCV 88 81 - 98 fl [facility] MCH 30.0 26.7 - 33.3 pg [facility] MCHC 34.1 32.1 - 35.9 gm/dl [facility] PLT 200 141 - 320 K/cmm [facility] RDW-CV 14.9(H) 11.7 - 14.6 % [facility] % Neutrophils 69.0 45.5 - 79.7 % [facility] % Lymphocytes 22.6 15.0 - 46.8 % [facility] % Monocytes 6.1 1.8 - 12.0 % [facility] % Eosinophils 2.0 0.6 - 6.9 % [facility] % Basophils 0.3 0.2 - 1.4 % [facility] ABS Neutrophils 6.24 2.20 - 8.85 K/cmm [facility] ABS Lymphs 2.04 1.09 - 3.30 K/cmm [facility] ABS Monocytes 0.55 0.1 - 0.8 K/cmm [facility] ABS Eosinophils 0.18 0.03 - 0.61 K/cmm [facility] ABS Basophils 0.02 0.01 - 0.11 K/cmm [facility] Type of Diff: Automated [facility] 07/02/2007 13:0 0 EST 07/02/2007 13:48 EST Default Emergency MD PACKAGES & DNA PROB E ORDERABLES Performing Organization Address [facility] de Phone Number [facility] [address] [place] [address] * TROPONIN I (07/02/2007 13:00 EST) Pathologist [facility] Emergency Department Troponin I pre 2011 <0.05 ng/ml [facility] Comment: Reference Range: Normal: ??Less than 0.05 Indeterminate: ??0.05-0.80 Positive: ??Greater than 0.80 07/02/2007 13:0 0 EST 07/02/2007 13:31 EST Default Emergency MD CHEMISTRY & BLOOD G ORDERABLES Performing Organization Address [facility] Phone Number [facility] [address] [place] [address] * (ABNORMAL) GLUCOSE, SERUM (07/02/2007 13:00 EST) Pathologist [facility] Emergency Department Glucose, Serum 116(H) 70 - 100 mg/dl [facility] 07/02/2007 13:0 0 EST 07/02/2007 13:31 EST Default Emergency CHEMISTRY & BLOOD G ORDERABLES Performing Organization Address [facility] Phone Number [facility] [address] [place] [address] * ELECTROLYTES (07/02/2007 13:00 EST) Pathologist [facility] Emergency Department Sodium 145 136 - 145 mEq/L [facility] Potassium 4.4 3.5 - 5.0 mEq/L [facility] Chloride 103 96 - 110 mEq/L [facility] CO2 28 24 - 32 mEq/L [facility] 07/02/2007 13:0 0 EST 07/02/2007 13:31 EST Default Emergency CHEMISTRY & BLOOD G ORDERABLES Performing Organization Address [facility] de Phone Number [facility] [address] [place] [address] * CREATININE (07/02/2007 13:00 EST) Creatinine 0.70 0.7 - 1.5 mg/dl [facility] GFR, Calculated >60 ml/min/1.7 3m2 [facility] 07/02/2007 13:0 0 EST 07/02/2007 13:31 EST Default Emergency MD CHEMISTRY & BLOOD G ORDERABLES Performing Organization Address [facility] de Phone Number [facility] [address] [place] [address] * BUN (07/02/2007 13:00 EST) BUN 25 10 - 26 mg/dl [facility] 07/02/2007 13:0 0 EST 07/02/2007 13:31 EST Default Emergency MD CHEMISTRY & BLOOD G ORDERABLES Performing Organization Address [facility] Co de Phone Number [facility] [address] [place] [address] documented in this encounter Visit Diagnoses Not on filedocumented in this encounter
--- OUTSIDE RECORDS SUMMARY | 2024-02-02 18:27 | XMS_ITS | Encounter Summary ---
Author Organization [facility] [place] Address [address] [place] [address] Care Team Providers Care Medical Assisting Program Director Name Role Phone Patricia Ulloa MD Primary Care Provider Reason for Visit * Reason Comments New Patient Visit Encounter Details Date Type Department Care Team (Late st Contact Info) Description 08/31/2020 8:15 EDT Office Visit [facility] Adult Primary Care - [address] [address] Patricia Ulloa MD [address] [place] [phone] Fall, sequela (Primary Dx); Hypothyroidism, unspecified type; Post-menopausal; Hypertension, unspecified type; Vitamin D deficiency; Cognitive impairment Social History Tobacco Use Types Packs/Day Years [...] on file documented as of this encounter Last Filed Vital Signs Vital Sign Reading Time Taken Comments Blood Pressure 170/90 08/31/2020 0835 EDT Pulse 56 08/31/2020 0835 EDT Temperature - - Respiratory Rate - - Oxygen Saturation 93% 08/31/2020 0835 EDT Inhaled Oxygen Concentration - - Weight 72.6 kg (160 lb) 08/31/2020 0835 EDT Height - - Body Mass Index 28.34 04/25/2019 1801 EST documented in this encounter Functional Status Functional [...] No 12/03/2017 documented as of this encounter Patient Instructions * Patient Instructions* Patricia Ulloa MD - 08/31/2020 8:15 EDT 1) Constipation - If you go a few days without a Bowel movement, start taking 1 senna tablet every day. The goal is no less than 3-4 BM/week 2) Home health Physical therapy will call you to set up an appointment 3) Check your blood pressure every day for a week and then call our office to let us know the numbers and we can decide if we need to increase your blood pressure medicines 4) Bring your advanced directive 5) Get blood work done in next few weeks 6) Let us know how much Vitamin D she is taking documented in this encounter Progress Notes * Patricia Ulloa MD - 08/31/2020 0815 EDT [facility] Adult Primary Care, Geriatrics - Establish Care Subjective: Ms. Meredith Thornton is a 84 y.o. female who has the PMH of Patient Active Problem List Diagnosis ??? Nuclear senile cataract of right eye ??? Benign neoplasm of right retina ??? Constipation ??? Hypertension ??? Vitamin D deficiency ??? Hypothyroidism ??? Fall who comes in to clinic to establish care and Chief Complaint Patient presents with ??? New Patient Visit She has moved to the area to live with daughter from [facility]. She is transferring care from [facility]. We do not have records at this time. They have been requested. She also sees a Lean Manager, Dr. Granger. She has seen a Neurologist, Cezar White. She is here today with her daughter Gabriel. Weight loss - has lost 30 lbs in past 1.5 years - initially was trying to eat less - Gabriel thinks 2018 is when this started - Meredith and gabriel feel weight loss stabilized while at [facility] - good appetite HTN - had been hospitalized [facility] in May 2019 for HTN 220 systolic, hallucinating, was on propranolol-- changed medications - no further hallucinations Mac degeneration - Gabriel made appt with Cristobal foss? Constipation - incresaing water has helped - was latanya senna every day - was taking dulocolax daily prn - has been having BM every day Tremors - wears bib to eat - daughter does writing - but otherwise does not get in the way - family has it - used to be on propranolol - worse now that she is off it -I discussed further options and they said they might pursue this but if they do it will through Lean Manager -- Dr Granger Feet tingling - resolved - has had this before - she thinks it was from high bp - neuropathy post guillan barre - annoying Cog impairment, memory loss - they tell me she has seen Neurology Dr Vale 3 times -she has done memory testing today. These arent available today - patient denies problems with memory - idp with ADL - car removed May 2019, retested Neurologist in July 2019 and she didn't get car back ( memory testing), Gabriel helps with finances, Gabriel does cooking, cleaning Elderly Safety Fall history: FALLS RISK REVIEW 08/31/2020 Get Up and Go Test Pushes up, successful in one attempt Patient Uses an Assistive Device Yes Assistive Device Used walker Assistive Device Used 4 wheel walker Previous Fall Within the Past 12 Months Yes Number of Falls in Past 12 Months 1 Anti-Hypertensive on Active Medication List Yes Considered at High Risk for Falls Yes Follow Up: Education Provided Yes Fall Risk Screening Completed Yes Some recent data might be hidden - fall in past year: was at counter, scraped up arm and hit head, feeling ok Mobility assist device: walker, cane Hearing loss: some trouble, no hearing aids, bothers her, does not want hearing aids right now Visual impairment: macular degeneration Independent with ADLs? 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 Smoking status: Never Smoker ??? Smokeless tobacco: Never Used Substance Use Topics ??? Alcohol use: Not on file ??? Drug use: Not on file Meds Current Outpatient Medications: ??? ascorbic acid, vitamin C, (VITAMIN C) 100 mg tablet, Take 100 mg by mouth daily., Disp: , Rfl: ??? bisacodyL (DULCOLAX) 5 mg EC tablet, Take 5 mg by mouth daily as needed for Constipation., Disp: , Rfl: ??? cholecalciferol, Vitamin D3, 25 mcg (1,000 unit) tablet, Take 1,000 Units by mouth daily., Disp: , Rfl: ??? lisinopriL (PRINIVIL) 10 mg tablet, Take 10 mg by mouth daily., Disp: , Rfl: ??? metoprolol SUCCinate (TOPROL-XL) 25 mg tablet, Take 25 mg by mouth daily., Disp: , Rfl: ??? senna (SENOKOT) 8.6 mg tablet, Take 1 Tab by mouth daily as needed., Disp: , Rfl: Allergies, Medications, Past Medical history, Past surgical history and Family history Reviewed andUpdated in EMR Review of Systems 10 pt ROS completed and negative except as indicated above. See new patient packet for complete 10 pt ROS. Objective: Vitals: Patient Vitals for the past 24 hrs: BP Pulse SpO2 Weight 04/29/21 0835 (!) 170/90 56 93 % 72.6 kg (160 lb) 150/80 on repeat Wt Readings from Last 3 Encounters: 08/31/20 72.6 kg (160 lb) 04/25/19 88.9 kg (196 lb) Physical Examination: Gen: Awake, alert, NAD, cooperative with exam HEENT: Normocephalic, atraumatic, EOMI Eyes: sclera white Chest: CTA B/L. No rales, rhonchi, or wheezing. Heart: RRR. S1 S2. No MRG Abdomen: Soft, NT, ND. BS + Extremities: Moves all extremities, No LE Edema Neuro: tremors of jaw Gait: w assistive device Cognitive Assessment: deferred Labs: Lab Results Component Value Date WBC 8.81 04/25/2019 HGB 14.7 04/25/2019 HCT 46.3 (H) 04/25/2019 PLT 182 04/25/2019 Lab Results Component Value Date NA 140 04/25/2019 K 4.7 08/01/2020 CL 104 04/25/2019 CO2 27 04/25/2019 BUN 32 (H) 04/25/2019 CREATININE 1.09 (H) 08/01/2020 CALCIUM 9.7 04/25/2019 Lab Results Component Value Date ALKPHOS 139 (H) 04/25/2019 ALT 14 04/25/2019 AST 23 04/25/2019 Lab Results Component Value Date HGBA1C 5.7 (H) 08/01/2020 Lab Results Component Value Date TSH 6.66 (H) 08/01/2020 Assessment and Plan: 84 y.o. woman with HTN, ? Cog impairment, falls here to establish care. Constipation - Instructions: If you go a few days without a Bowel movement, start taking 1 senna tablet every day.The goal is no less than 3-4 BM/week Falls -Home health Physical therapy will call you to set up an appointment HTN - sounds like BP is elevated in office - asked Them to check blood pressure every day for a week and then call our office to let us know the numbers and we can decide if we need to increase your blood pressure medicines - metop 25 - lisinopril 10 - bmp HME -Bring your advanced directive Hypothyroidism on recent labs - free t4 ordered Vit D def - I have asked them to Let us know how much Vitamin D she is taking - check vit d level Health Maintenance: Need to get prior records from PCP Vaccinations: There is no immunization history on file for this patient. Guillan [place] history so has not received many vaccines Cancer Screening: Cervical Cancer screen: stop after 65 unless high risk (grade D recommendations) - no abnormals Colon Cancer screen (Colonoscopy): 50-75 - never Breast Cancer screen (Mammography): 50-74 (or <10 year life expectancy) - long ago Others: Osteopenia/osteoporosis screening: (DEXA) - DEXA ordered today Advance care Planning: ADDENDUM: Ad dir scanned in after this visit but no HCPOA documented Emergency Contact: Extended Emergency Contact Information Primary Emergency Contact: Gabriel Rodriges Mobile Relation: Daughter Secondary Emergency Contact: Diego Thornton Mobile Relation: Son Follow up Plan: RTC in 3 months to discuss HTN, cog impairment, falls, review HME - dexa? Future Appointments Date Time Provider Department Center 10/23/2020 9:20 Марина Vincent MD [facility] None 11/30/2020 8:15 Patricia Ulloa MD [facility] Patricia Ulloa MD [facility] General Internal Medicine and Geriatrics 08/31/2020 8:29 I spent a total of 60 minutes on the date of this encounter meeting with the patient and reviewing documentation/coordinating care as described in the above note. documented in this encounter Plan of Treatment Not on file documented as of this encounter Visit Diagnoses Diagnosis Fall, sequela- Primary Hypothyroidism, unspecified type Post-menopausal Asymptomatic postmenopausal status (age-related) (natural) Hypertension, unspecified type Vitamin D deficiency Unspecified vitamin D deficiency Cognitive impairment Unspecified persistent mental disorders due to conditions classified elsewhere documented in this encounter Discontinued Medications Medication Sig Discontinue Reason Start Date End Da te FLAXSEED OIL ORAL Take 1 Tab by mouth three times a week. 08/31/2020 NONFORMULARY 1 Capsule daily. Kidney Support Supplement 08/31/2020 propRANolol (INDERAL) 60 mg tablet Take 40 mg by mouth every 8 hours. 08/31/2020 documented as of this encounter Historical Medications * This list may reflect changes made after this encounter. Medication Sig Dispensed Refills Start Date End Date senna (SENOKOT) 8.6 mg tablet Take 1 Tab by mouth daily as needed. cholecalciferol, Vitamin D3, 25 mcg (1,000 unit) tablet Take 5,000 Units by mouth daily. 12/18/2021 bisacodyL (DULCOLAX) 5 mg EC tablet Take 5 mg by mouth daily as needed for Constipation. 09/19/2020 added in this encounter Care Teams Medical Assisting Program Director Relationship Specialty Start Date End Date Patricia Ulloa MD PCP - General Geriatric Medicine 08/31/20 10/15/20 documented as of this encounter
--- OUTSIDE RECORDS SUMMARY | 2024-02-02 18:27 | XMS_ITS | Encounter Summary ---
Author Organization [facility] Address [address] [place] [address] Care Team Providers Care Physician Office Secretary Name Role Phone Unavailable Primary Care Provider Unavailabl e Reason for Visit * Reason Onset Date Comments Medical Records 08/02/2020 Encounter Details Date Type Department Care Team (Late st Contact Info) Description 08/02/[address] [facility] Adult Primary Care - [address] [address] Patricia Ulloa MD [address] [place] [phone] Medical Records Social History Tobacco Use [...] encounter Miscellaneous Notes * Telephone Encounter - Zahira Iqra - 08/02/2020 0836 EDT Outgoing fax to Eloina Brewer's office. Medical record release form, requesting Pts medical records. documented in this encounter Plan of Treatment Not on file documented as of this encounter Visit Diagnoses Not on filedocumented in this encounter
--- OUTSIDE RECORDS SUMMARY | 2024-02-02 18:27 | XMS_ITS | Encounter Summary ---
Author Organization [facility] Address [address] [place] [address] Care Team Providers Care Director Of Consulting Services Name Role Phone Patricia Ulloa MD Primary Care Provider Reason for Visit * Reason Onset Date Comments Home Health 09/06/2020 Encounter Details Date Type Department Care Team (Late st Contact Info) Description 09/06/2020 Telephone [facility] Adult Primary Care - [address] [phone] Patricia Ulloa MD [address] [place] [phone] Home Health Social History Tobacco Use Types Packs/Day Years [...] encounter Miscellaneous Notes * Telephone Encounter - Abby Cordova - 09/06/2020 1514 EDT Home PT was initiated today Med review done also 1. Pt is not taking Vit C 2. Pt is not taking Bisacodyl 3. Pt is taking 5000 iu Vit D3 documented in this encounter Plan of Treatment Not on file documented as of this encounter Visit Diagnoses Not on filedocumented in this encounter Care Teams Director Of Consulting Services Relationship Specialty Start Date End Date Patricia Ulloa MD PCP - General Geriatric Medicine 08/31/20 10/15/20 documented as of this encounter
--- OUTSIDE RECORDS SUMMARY | 2024-02-02 18:27 | XMS_ITS | Encounter Summary ---
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 Ref here from Dr. Arellano * Referral (Routine) - Closed Specialty Diagnoses / Procedures Referred By Kayla goodman Referred To Contact Ophthalmology Diagnoses Age-related macular degeneration Bilateral dry eyes Cas Pineda MD [address] [place] [address] [address] [place] [address] [place] [address] Ophthalmology [address] [place] [address] Referral ID Status Reason Start Date Expiration Date Visits Re quested Visits Authorized [id number] Closed 1 1 Encounter Details Date Type Department Care Team (Late st Contact Info) Description 12/03/2017 13:15 EDT Office Visit [facility] Ophthalmology - [address] [phone] Travis Florez MD [address] [facility] [place] [address] Discharge Disposition: Auto Discharge Social History Tobacco Use Types Packs/Day Years Used Date Smoking Tobacco: Never Smokeless Tobacco: Never Sex and Gender Information Value Date Recorded Sex Assigned at Not on file Gender Identity Female 07/03/2020 13:32 EST Sexual Orientation Not on file documented as of this encounter Last Filed Vital Signs Vital Sign Reading Time Taken Comments Blood Pressure 144/80 12/03/2017 1401 EDT Pulse - - Temperature - - Respiratory Rate - - Oxygen Saturation - - Inhaled Oxygen Concentration - - Weight - - Height - - Body Mass Index - - documented in this encounter Functional Status Functional [...] 12/03/2017 documented as of this encounter Discharge Diagnoses Diagnosis H35.3230 Exudative age-rel mclr degn, bilateral, stage unspecified-H35.3230[ICD-10-CM] D31.20 Benign neoplasm of unspecified retina-D31.20[ICD-10-CM] H25.11 Age-related nuclear cataract, right eye-H25.11[ICD-10-CM] documented in this encounter Discharge Disposition Disposition Code Departure Means Destination Auto Discharge documented in this encounter Progress Notes * Travis Florez MD - 12/03/2017 1315 EDT Chief Complaint Patient presents with ??? Eye Problem Macular heme right eye. Ref here from Dr. Arellano HPI Location: Pain: 0 - No pain Quality: Severity: Mild Duration: Months Timing: Constant Lasts: Continuous Context: Here for new macular heme right eye per [facility] Modifying factors: In Jun fell and landed on right upper eye bone, smashed glasses and was bruised. Associated Signs & Symptoms: Visual Fluctuations: None Attestation: fell and struck right brow in 06/2017 no real change in [place]. Noted to have heme in superior mac right eye by Dr. Quick Base Eye Exam Visual Acuity (Snellen - Linear) Right Left Dist cc 20/40 +2 20/25 +2 Dist ph cc NI Correction: Glasses Tonometry (Applanation, 14:23) Right Left Pressure 16 16 Pupils Pupils Light APD Right PERRL 4 None Left PERRL 4 None Visual Espinoza (Counting fingers) Right Left Result Full Full Confirmed by RHM Extraocular Movement Right Left Result Full Full Neuro/Psych Oriented x3: Yes Mood/Affect: Normal Dilation Both eyes: 1.0% Mydriacyl, 2.5% Phenylephrine @ 14:23 Additional Tests Color Right Left Ishihara 06/17 10/15 Slit Lamp and Fundus Exam Slit Lamp Exam Right Left Lids/Lashes Normal Normal Conjunctiva/Sclera White and quiet White and quiet Cornea Clear Clear Anterior Chamber Deep and quiet Deep and quiet Iris Round and reactive Round and reactive Lens 2+ Nuclear sclerosis Posterior chamber intraocular lens Fundus Exam Right Left Disc Normal Normal C/D Ratio 0.4 0.4 Macula scatt drusen drusen around mac region, island of Geoatrophy nasal Vessels Normal Normal Periphery pigmented spots at 8 near ora nevus superior to nerve 1dd Imaging: OCT REPORT Indications: Age-related Macular Degeneration Findings: Right Eye Left Eye atrophy no edema Drusen and atrophy no edema Original test to be found in patients shadow chart Impression: 1. Nuclear senile cataract of right eye 2. Benign neoplasm of right retina 3. 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 She will be started on AREDS II vitamins every day with daily use of the Amsler Grid. We have suggested that she use Ocuvite PreserVision AREDSII Gelcaps oral twice a day. A handout on AREDS study has been given to her. ( EITHER TODAY OR PREVIOUSLY) She understands the difference between wet and dry macular degeneration and understands the extreme importance of daily use, one eye at a time of the Amsler Grid. She also understands the extreme importance of immediate reporting of any Amsler Grid changes, i.e., this may represent transformation of dry ARMD to wet macular degeneration which needs to be dealt with urgently. She also understands that failure to report change in the Amsler Grid could result insevere loss of vision from progressive wet age-related macular degeneration. 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 Pt and I discussed the issue . Patient understands that risk of malignant degeneration tho low is not zero and that this problem needs ongoing follow up.If the lesion should undergo malignant change this would be a life threatening problem - thus the need for ongoing follow up. Patient understands and agrees to follow up as directed. Contusion right periocular side in Jun 2017 No holes, tears or RD Follow NSC right eye Meredith Thornton was instructed that she has a cataract, but the cataract is not severe enough to require surgery at this time. Follow up 8 months RHM This office note has been dictated. Comment Dry AMD with incipient santos atrophy, coag suspect-see Ynes for reassess of this I, Dr. Florez, have performed my own HPI and reviewed the tech's ROS. I have also reviewed the patient's past medical, family, social and surgical history, as well as the patient's medications, allergies, and problem list. I am scribing for Dr. Travis Florez MD while he is personally performing the service. Zenobia He, COA (Scribe) * Travis Florez MD - 12/03/2017 0000 EDT [facility] OPHTHALMOLOGY December 03, 2017 Isaiah Quick OD [facility] [address], [address] [place] [address] RE: MEREDITH THORNTON : 1935 Dear Isaiah, Ms Thornton was seen by me today at your request. 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 She has mild to moderate decreased vision in both eyes for months in a continuous fashion, and has not noted any definite change in her vision. She is not having any pain, no new flashes or floaters. Visual acuities were 20/40+ right and 20/25+ left today. Intraocular pressures were right 16, left 16. I have evaluated the following things in both eyes, confrontations visual espinoza to count fingers, extraocular movements and eyes in primary position and these are all normal. (Normal confrontation visual espinoza means visual espinoza are full to count fingers in all six espinoza. Extraocular movements normal means movements were full and concomitant. Eyes normal in primary position means eyes are straight in primary position.) I have examined the following ophthalmic exam components for this patient, inspection of bulbar andpalpebral conjunctivae, ocular adnexa, which includes the lids, lacrimal glands, lacrimal drainage,orbits and preauricular lymph nodes, examination of pupils including shape, reaction and size, morphology not done due to mydriasis, irises were examined, presence or absence of rubeosis, corneal exam including epithelium, stroma, endothelium and tear film, anterior chambers including depth, cells and flare, lens exam including clarity, anterior and posterior capsule, cortex and nucleus. The above are all normal both eyes except PCIOL left, and moderate nuclear sclerosis, right. Ophthalmoscopy revealed extensive drusen and some incipient geographic changes in both eyes. Superotemporal to the fovea in the right eye, the patient has an area of atrophic pigment epithelium with a large choroidal vessel that is shining through which looks reminiscent of a hemorrhage, but I do not believe represents a hemorrhage. There is a small nevus about 1 disc diameter in size above the disc in the left eye. The peripheral retina is attached. There are some pigmentary changes in the periphery consistent with aging. Fundus photos and fluorescein angiogram were done today. 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 The fundus photos show extensive drusen in both eyes and what I would interpret as incipient geographic atrophy in both eyes. Cup-to-disc ratios look asymmetric, right eye 0.5 to 0.6 and left eye 0.4. I do not see any definite hemorrhage on the color photos. Assessment: 1. 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 2. Glaucoma suspect. Plan: Fluorescein directed toward the patient's right eye reveals geographic atrophy with hyperfluorescence as the study proceeds, but no definite leakage that looks consistent with a choroidal neovascular membrane. The fellow eye shows similar geographic atrophy and no definite leakage that I think is consistent with a choroidal neovascular membrane. Contact lens examination was performed in the right eye with careful search of the macular region, but no definite hemorrhages were noted. There was one area as I described previously, where there john prominent choroidal vessel showing through atrophic pigment epithelium and this looks like a hemorrhage. Assessment: The patient has on my examination clinically and on OCT and on fluorescein dry macular degeneration. I do not see any hemorrhage, hard exudate or subsensory retinal fluid. I think the patient should be seen every 4 months because I think she is at significant risk for wet AMD. I am going to ask you to see her in 4 months and I will plan to see her in 8 months and I am hoping we can alternate visits. The patient will start using an Amsler grid religiously and she will also initiate the AREDS 2 formula. Lastly, the patient's cup-to-disc ratios are asymmetric and the patient does have a family history of glaucoma. I am recommending that you evaluate her as a glaucoma suspect. Lastly lastly, the patient does have a benign looking nevus above the optic nerve, which is visualized on the color photos in her left eye. Thank you so much for letting me take part in the care of this very pleasant lady. With best personal regards, Travis Florez MD 05 11 PM - Travis Florez MD ln Dictation ID: [id number] cc: Isaiah Quick OD, [facility] [address], [address], [place] [address] documented in this encounter Plan of Treatment Scheduled Orders Name Type Priority Associated Diagnoses Orde r Schedule OCT (OPHTHALMIC DIGITAL IMAGING, POSTERIOR SEGMENT) Ophthalmology Routine Advanced Atrophic Nonexudative Age-Related Macular Degeneration Of Both Eyes Without Subfoveal Involvement Ordered: 12/03/2017 documented as of this encounter Visit Diagnoses Diagnosis Nuclear senile cataract of right eye- Primary Benign neoplasm of right retina Benign neoplasm of retina 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 Medication Sig Dispensed Refills Start Date End Date FLAXSEED OIL ORAL Take 1 Tab by mouth three times a week. 08/31/2020 propRANolol (INDERAL) 60 mg tablet Take 40 mg by mouth every 8 hours. 08/31/2020 added in this encounter Eye Exam Visual Acuity (Snellen - Linear) Right eye Left eye Dist cc 20/40 +2 20/25 +2 Dist ph cc NI Correction: Glasses Tonometry (Applanation, 14:23) Right eye Left eye Pressure 16 16 Pupils Pupils Light APD Right eye PERRL 4 None Left eye PERRL 4 None Visual Espinoza (Counting fingers) Right eye Left eye Full Full Confirmed by RHM Extraocular Movement Right eye Left eye Full Full Neuro/Psych Oriented x3: Yes Mood/Affect: Normal Dilation Both eyes: 1.0% Mydriacyl, 2 .5% Phenylephrine @ 14:23 Color Right eye Left eye Ishihara 06/17 10/15 Slit Lamp Exam Right eye Left eye Lids/Lashes Normal Normal Conjunctiva/Sclera White and quiet White and ramona et Cornea Clear Clear Anterior Chamber Deep and quiet Deep and quiet Iris Round and reactive Round and elizabeth ctive Lens 2+ Nuclear sclerosis Posterior c hamber intraocular lens Fundus Exam Right eye Left eye Disc Normal Normal C/D Ratio 0.4 0.4 Macula scatt drusen drusen around ma c region, [place] of Geoatrophy nasal Vessels Normal Normal Periphery pigmented spots at 8 near ora ne vus superior to nerve 1dd Care Teams Inspector Relationship Specialty Start Date End Date Camila Moreland MD PCP - General 03/10/15 07/02/20 documented as of this encounter
--- OUTSIDE RECORDS SUMMARY | 2024-02-02 18:27 | XMS_ITS | Encounter Summary ---
Author Organization [facility] Address [address] [place] [address] Care Team Providers Care Outside Sales Associate Name Role Phone Patricia Ulloa MD Primary Care Provider Encounter Details Date Type Department Care Team (Latest Contact Info) Description 10/10/2020 Documentation Visit [facility] Adult Primary Care - [address] [id number] Patricia Ulloa MD [address] [place] [address] Hypertension, unspecified type; Amnesia; Tremor; Weakness generalized; Primary hypothyroidism Social History Tobacco Use Types Packs/Day Years [...] as of this encounter Progress Notes * Abby Cordova - 10/10/2020 1153 EDT AGENCY: [facility] CERTIFICATION PERIOD: 09.06.20-11.04.20 DATE SIGNED: 09.20.20 CPT CODE: [id number] DX: i10 R41. R25.1 R53.1 E03.9 Scanned for reference documented in this encounter Plan of Treatment Not on file documented as of this encounter Visit Diagnoses Diagnosis Hypertension, unspecified type Amnesia Memory loss Tremor Abnormal involuntary movements Weakness generalized Other malaise and fatigue Primary hypothyroidism Unspecified hypothyroidism documented in this encounter Care Teams Outside Sales Associate Relationship Specialty Start Date End Date Patricia Ulloa MD PCP - General Geriatric Medicine 08/31/20 10/15/20 documented as of this encounter
--- OUTSIDE RECORDS SUMMARY | 2024-02-02 18:27 | XMS_ITS | Encounter Summary ---
Author Organization [facility] Address [address] [place] [address] Care Team Providers Care Telephone Engineer Name Role Phone Eloina Brewer [employer] Primary Care Provider Encounter Details Date Type Department Care Team (Latest Contact Info) Description 12/17/2021 Travel Social History Tobacco Use Types Packs/Day [...] suspected to have Coronavirus/COVID-19? No / Unsure 12/17/2021 17:11 EDT documented as of this encounter Functional [...] on filedocumented in this encounter Care Teams Telephone Engineer Relationship Specialty Start Date End Date Eloina Brewer, [employer] [address] [place] [id number] PCP - General 10/16/20 documented as of this encounter
--- OUTSIDE RECORDS SUMMARY | 2024-02-02 18:27 | XMS_ITS | Encounter Summary ---
Author Organization [facility] Address [address] [place] [address] Care Team Providers Care Digital Media Buyer Name Role Phone DaniellaTomasEloina L DIRECTOR MONEY Primary Care Provider [phone] Reason for Visit * Reason Comments Altered Mental Status patient states she is feeling very confused today and thinks her mind is not good. Patient appears confused in triage. Denies pain or injury. Lives with her daughter, brought in by son in law. Daughter feels that she is not capable of providing care anymore. Son in law stating that patient has trouble expressing herself and is constantly confused. * Auth/Cert Specialty Diagnoses / Procedures Referred By Kayla goodman Referred To Contact Diagnoses Dementia with behavioral disturbance, unspecified dementia type Agitation Referral ID Status Reason Start Date Expiration Date Visits Re quested Visits Authorized [id number] 1 1 Encounter Details Date Type Department Care Team (Late st Contact Info) Description 12/17/2021 17:12 EDT - 12/18/2021 17:58 EDT Hospital Encounter [facility] General Medicine Unit [address] [place], [place] [id number] Sylvester Medeiros MD Doyle-Burr, Caleb J, MD [address] [phone] Sarah Prater MD MPH [address] [facility] [address] [place] [phone] Dante Huerta MD [address] [place] [address] Riley Perera MD [address] [facility], 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 Care Bed) Social History Tobacco Use Types Packs/Day Years [...] 17:11 EDT documented as of this encounter Last [...] Body Mass Index 26.63 12/17/2021 1708 EDT documented in this encounter Functional Status [...] 12/03/2017 documented as of this encounter Discharge Summaries * Kristen Gasca MD - 12/18/2021 1640 EDT HOSPITAL MEDICINE DISCHARGE SUMMARY Primary Care Provider: Eloina Brewer Attending Physician: Dante Huerta MD Admit Date: 12/17/21 Discharge Date: 12/18/2021 Disposition (location): [facility] Condition at Discharge: Stable Reason for Admission (chief complaint): Agitation, hallucinations Principal/Final Diagnosis: Dementia with behavioral disturbance, unspecified dementia type (HCC-CMS) ([facility]) Additional Problems Managed in the Hospital: Active Hospital Problems Diagnosis Date Noted ??? *Dementia with behavioral disturbance, unspecified dementia type (HCC-CMS) ([facility]) 12/18/2021 ??? Agitation 12/17/2021 ??? Constipation 09/19/2020 ??? Hypertension 09/19/2020 ??? Hypothyroidism 09/19/2020 ??? Personal history of fall 09/19/2020 Resolved Hospital Problems No resolved problems to display. Transition of care: [facility] Transition of Care report automatically routed to PCP office on discharge.Additional handoff communication performed via: Secure [employer] Staff Message - DC summ and note sent to Dr. Antoine (with whom pt is establishing care on 01/02). Clinical Issues Needing Follow-up 1. Pertinent medication changes: - Continued on home metoprolol 25mg daily, levothyroxine 25mcg daily, quetiapine 50mg BID 2. Recommended follow-up tests/procedures needed: - Follow up with Dr. Antoine on 01/02 - Recommend continuing attempts to obtain records from prior PCP ([facility] in [place]) - Would obtain formal cognitive assessment (MOCA, etc) or recent records - Pursue additional testing for lung mass pending GOC, capacity evaluation. 3. Anticoagulation on discharge: No 4. Changes to goals of care at time of discharge (if applicable): None, remains FULL CODE. Hospital Course: Meredith D [place]??is a 86 y.o.??female??with a PMHx significant for HTN, hypothyroidism, cognitive impairment, CKDIII (BL 1.1-1.2), and history of falls, who presented to [facility] on 12/17 with with??progressively worsening??agitation and altered mental status??with unsafe environment at home. Metabolic work up was unremarkable. CT head and c-spine imaging was notable only for degenerative bony disease. Patient required anti-psychotics in the ED and was admitted for further management and PT/OT evaluation. While admitted, patient required only home anti-psychotics. She had no behavioral escalation. She was mentally stable and after discussions with SW, patient's family opted to transition her to an assisted living facility. She was stable for discharge on 12/18 with plan for close PCP f/u - upcoming appt with Dr. Antoine on 01/02. Relevant Imaging/Procedures Performed: CT CERVICAL SPINE WO CONTRAST Result Date: 12/18/2021 1. No acute fracture or traumatic malalignment of the cervical spine. 2. Multilevel degenerative changes described above. I have personally reviewed the images and the above interpretation and agree with the findings. CT HEAD WO CONTRAST Result Date: 12/18/2021 No acute abnormality; no evidence of intracranial hemorrhage or calvarial fracture, no evidence of acute infarction. I have personally reviewed the images and the above interpretation and agree with the findings. Results Pending at Discharge: Test results still pending from this admission None Upcoming Appointments Jan 02, 2022 16:15 Office Visit Medium with Margret Antoine MD [facility] - [place] ([facility]) [address] [facility] [id number] Plan discussed at length with Dr. Kush Huerta, FMS team, and patient. KRISTEN GASCA MD 12/18/2021 16:50 FM PGY3, [id number] Associated attestation - Dante Huerta MD - 12/19/2021 0718 EDT I saw and evaluated the patient for discharge. I agree with the resident's/fellow's note. I personally spent less than 30 minutes in discharging services for this patient. Dante Huerta MD documented in this encounter Medications at Time of Discharge Medication Sig Dispensed Refills Start Date End Date levothyroxine (SYNTHROID) 25 mcg tablet Take 25 mcg by mouth daily. metoprolol SUCCinate (TOPROL-XL) 25 mg tablet Take 25 mg by mouth daily. 07/26/2020 QUEtiapine (SEROQUEL) 25 mg tablet Take 2 Tablets by mouth 2 times daily. 30 Tablet 12/15/2021 senna (SENOKOT) 8.6 mg tablet Take 1 Tab by mouth daily as needed. documented as of this encounter Discharge Disposition Disposition Code Departure Means Destination Nursing Facility (Shelter Care Bed) documented in this encounter Progress Notes * Samantha Stewart RN - 12/18/2021 1758 EDT Nursing Discharge Note D: Patient noted with discharge orders to: [facility]. A: Prescriptions e-scripted. Reviewed discharge instructions and prescriptions with Patient and Other IV d/c'd. Belongings collected and sent home with patient. Report called to Omayra at [facility]. R: Daughter, Yris, verbalized understanding of discharge instructions and denied further questions. SAMANTHA STEWART RN 12/18/2021 18:09 * Stephany Ma - 12/18/2021 1630 EDT Call from Pt daughter. They have found a bed at [facility]-adult family home. They would like to come tonite at 6pm to pick her up . MD aware and plan to DC to go with family. They will transport to her adult home. Advised to put applications in for NHP . They are working on LTC medicaid. Stephany Ma RNCCM #[id number] * Nichole Spain RN - 12/18/2021 1431 EDT Images from the original note were not included. FOUR EYES SKIN ASSESSMENT Four Eyes skin assessment was performed on admission to the unit by Nichole Spain RN and WOODROW Howard. Areas of concern: [] Occiput [] Nose [x] Ear: Small brown scab on L upper ear. [] Lip [] Scapula [] Spinous process [] Shoulder [] Elbow [] Iliac crest [] Sacrum/coccyx [] Ischial tuberosity [] Trochanter [] Knee [] Malleolus [] Heel [] Toe [] Other: Healed skin injury on sacrum. Patient has the following devices at the time of this assessment: none. Device related pressure injury present? No Instructions: ??? Add LDA for any identified wounds ??? Add [place] image for any suspected PI ??? Order wound consult if suspected PI identified 12/18/2021 14:32 * Stephany Ma - 12/18/2021 1340 EDT Spoke with pt's daughter. Pt resides with her and she had had an increasingly hard time caring for her. She states she is up with her walker -rollator -and able to climb stairs with assist to get to a bath . They have had no services at home. Daughter has provided transportation to MD appointments.She has applied for LTC medicaid but has had issues with property etc and will complete Friday with[facility]. She feels that application is ready to submit. She has put her Mom on the list for memorycare (? [place]) but was on a 5 year wait list. She [facility] and she will call them again today to see if pt canhouse there until she goes to [place]. She is requesting placement at this time. I reviewed choices and fact that we would need to rapidly expand search from the hospital. She does understand that. I alsoreviewed the fact that pt may soon become fci care and that medicare may no longer pay for hospital. She does understand. CM will follow Stephany Ma RNCCM #[id number] * Kristen Gasca MD - 12/18/2021 0606 EDT Family Medicine Service Progress Note Service Date: 12/18/2021 Admit Date: 12/17/2021 17:12 Reason for Admission: 86 y.o.-year-old F admitted with a chief complaint of hallucinations and agitation and now with a principal diagnosis of agitation. 24 Hour Events: - Admitted overnight - Labs unremarkable, CT head/C-spine unrevealing Subjective/Objective Subjective Patient seen in ED, no focal complaints. Doesn't like being in hospital. Denies pain. Has been taking PO. Denies hallucinations. Spoke w/daughter Yris, HCP. Daughter and still work during the day and patient lives with them, making things exceedingly difficult. Has fallen at home, but not while she's alone at home. So far nothing dangerous has happened while she's home alone. Fell about 6 weeks ago - hit head. Startedhallucinating 2y ago Hui - had very high BP, none specifically since. This is why she saw Neuro (?PRES), who took away her license. Daughter unclear re: formal diagnosis of cognitive impairment, dementia. Appt next Friday with Jammie - application for long-term medicaid. Baseline fluctuates - but typically knows where she is and who she's with and what time it is. Dementia manifests with an jerri, outbursts, paranoia. Yesterday she was just excessively agitated and being verbally cruel to her care providers - it's hard not to take it personally, gets combative (no actual physical contact), curses at her providers. My house is toxic because she's here, and I have no respite anywhere. Daughter was at her limit. Had a traumatic childhood experience with her mother - she's always beenoff. Used to threaten to kill her father, would hold guns up to his head, very erratic. Review of Systems: Pertinent items are noted in Subjective/HPI Objective Vital Signs (past 24 hours) Temp: [35.6 ??C (96.1 ??F)-36.7 ??C (98.1 ??F)] Heart Rate: -- Resp: [20-22] BP: (153-170)/(116-127) SpO2: [97 %-100 %] Physical Exam General: alert and oriented, cooperative,in no acute distress HEENT: NCAT. EOMI, PERRl, sclera clear. MMM. Cardiac: RRR, no m/r/g Pulmonary: clear to auscultation bilaterally, no wheezes or crackles in posterior meehan Abdomen: normoactive bowel sounds, soft, non-distended, and nontender to palpation Extremities: warm and well-perfused, no edema Neurologic: responds appropriately to questions, moves all extremities. Alert to providers, oriented to place, time, date. Insightful towards prior hallucinations, denies at this time. Psych: calm, appropriate answers to questions Labs CBC: Recent Labs 12/15/21151612/17/212057 WBC 9.27 9.22 RBC 4.42 4.42 HGB 13.2 13.1 HCT 39.3 38.5 MCV 89 87 MCH 29.9 29.6 MCHC 33.6 34.0 PLT 219 225 NEUTROABS 6.96 6.09 BMP: Recent Labs 12/15/21151712/17/212056 NA 142 140 K 4.5 4.1 CL 102 102 CO2 23 20* BUN 22 21 CREATININE 1.20* 1.22* CALCIUM 9.4 9.6 LABALBU 4.2 4.1 LFT: Recent Labs 12/15/21151712/17/212056 TBIL 0.5 0.8 ALKPHOS 96 96 AST 21 21 ALT 9 9 Thyroid Function: Recent Labs 12/17/212056 TSH 3.37 Imaging: CT CHEST WO CONTRAST Result Date: 12/12/2021 1. 3.9 cm in greatest axial diameter primarily solid mass with lobulated and spiculated margin somesurrounding groundglass opacity in the lateral basal segment of the left lower lobe of lung with areas of linear scarring or fibrosis extending from the mass to the pleural surface. Findings remain highly concerning for malignancy. A focal masslike area of organizing pneumonia would be an additional but less likely consideration. 2. Otherwise stable appearance of the chest compared to the studiesof September 2021. CT HEAD WO CONTRAST Result Date: 12/18/2021 No acute abnormality; no evidence of intracranial hemorrhage or calvarial fracture, no evidence of acute infarction. CT CERVICAL SPINE WO CONTRAST Result Date: 12/18/2021 1. No acute fracture or traumatic malalignment of the cervical spine. 2. Multilevel degenerative changes described above. I Assessment/Plan Assessment Meredith Thornton is a 86 y.o. female with a PMHx significant for HTN, hypothyroidism, cognitive impairment, CKDIII (BL 1.1-1.2), and falls who is presenting with progressively worsening agitation and altered mental status with unsafe environment at home who is admitted for further dispo planning. HDSat this time and managing her behaviors. Anticipate ongoing care discussions re: safe discharge planning and GOC moving forward. Plan #Agitation: concern for hallucinations + progression of dementia, unclear diagnosis of dementia #Acute on chronic encephalopathy with hx of cognitive impairment #Hx of falls - RADIO/TV TECHNICIAN Seroquel 50 mg BID - Delirium + Fall precautions - PT/OT pending - Nutrition c/s - Appreciate geriatrics consult - pt has appt to establish care w/Dr. Antoine 01/02. - Ramelteon at bedtime - Plan for formal MOCA time permitting - Query lung lesion work up as below re: possible mets/paraneoplastic process #Lung lesion: 3.9 cm lobulated/spiculated 12/12 CT scan. S/p treatment with abx, discovered in the spring when admitted in [facility], prompting PET scan. - Unclear at this time if patient would like to pursue further work-up. Query MOCA, will need formal capacity evaluation. Daughter at this time (HCP) recognizes that patient is FULL CODE, though alsoendorses statements like just kill me now. May warrant palliative involvement for further elucidation of GOC in the future. ?? Chronic/resolved issues: #HTN: RADIO/TV TECHNICIAN metoprolol 25 mg #CKDIII: baseline 1.1-1.2, though limited data in last year. Trend daily, avoid nephrotoxins #Hypothyroidism: RADIO/TV TECHNICIAN Levothyroxine 25 mcg, TSH therapeutic #Chronic constipation: RADIO/TV TECHNICIAN senna and miralax PRN Diet: geriatric diet Activity: up with assistance VTE Prophylaxis: Seqential Compression Device Code status: FULL, discussed on admission and confirmed with daughter Discharge Plan: uncertain - return home with support vs LTC Consults: Nutrition; PT/OT; Geratrics Plan discussed at length with Dr. Kush Huerta, FMS team, and patient. KRISTEN GASCA MD 12/18/2021 12:29 FM PGY3, [id number] Associated attestation - Dante Huerta MD - 12/18/2021 1315 EDT Attestation: I saw and evaluated the patient on 12/18/21. I agree with the findings and plan of care as documented in the resident's note. Any changes are in underline. Kush Huerta MD 12/18/21 13:14 * Uli Barrow LICSW - 12/17/20212013 EDT SW consult due to Meredith becoming unmanageable in the home environment. SW met with Yris and her who stated they can no longer care for Meredith at home. Meredith was here in ED on 12/15/21 for the same reasons and they were threatened with abandonment charges if they left Meredith here. Meredith is up all night, taking medications at inappropriate times, only uses walker sometimes (which has led to falls) and it not very redirectable. Yris is tearful throughout the conversation. They are working with [employer] to apply for [facility] and there are no finances for caregivers or NH level of care at this time. At this time family is adamant they cannot care for Meredith at home. It does seem that Meredith's behavior is very difficult to manage and unsafe in private home. ARPIT CLARK documented in this encounter H&P Notes * Surya Gaitan MD - 12/17/2021 2327 EDT Medicine Admission History & Physical Service Date: 12/17/2021 Admit Date: 12/17/2021 17:12 Primary Care Provider: Eloina Brewer Chief Complaint: Agitation HPI Meredith Thornton is a 86 y.o. female with a PMHx of HTN, hypothyroidism, GBS with cognitive impairment, CKDIII (BL 1.1-1.2), and falls who is presenting with progressively worsening agitation and hallucinations. Meredith was sitting up in bed with pressured speech and wandering eye movements with intermittent eye contact. She notes that her daughter came and her son-in-law were in the room or right next door behind the curtain. She denies hearing any voices or seeing any visual. She notes she is in [place] and its December 2021. She knowns she is in the hospital is worried about going anywhere but home with her daughter. She was able to be redirected to the conversation but did not want me to leave dueto anxiety. She denies taking p.o. meds positionally. Family noted to ED RN and physician not home care was unsustainable due to her behavioral issues including inability to be redirected as well as impulsive behavior as well as agitation. Family has been working with interval but there is an adequate support at home with her behavior. Of note, she presented on 12/15 with similar symptoms of family inability to manage her diffuse symptoms and was sent home on p.o. Seroquel. During the ED visit, multiple discussions on dispo were hadwith the final decision being her discharged home. In ED, vitals significant for Afeb, HR 72, BP 153/127, RA. Lab work significant for Cr 1.2. She wasgiven Olanzapine 2.5 + 5 mg IM. Review of Systems A complete 10 point ROS was performed and pertinent positive and negative findings listed in HPI, otherwise negative. Past Medical History: Diagnosis Date ??? Cataract ??? Eye trauma ??? Hypertension ??? Hypothyroidism 09/19/2020 ??? Neurological disease gulian/bare disease ??? Pancreatitis Past Surgical History: Procedure Laterality Date ??? CATARACT REMOVAL ??? CHOLECYSTECTOMY ??? INTRAOCULAR LENS PROSTHESIS INSERTION 06/05/2016 ??? SHOULDER SURGERY Left ??? TIBIA FRACTURE SURGERY Left 1967 ??? TUBAL LIGATION Social History Tobacco Use ??? Smoking status: Never Smoker ??? Smokeless tobacco: Never Used Substance Use Topics ??? Alcohol use: Not on file Family History Problem Relation Age of Onset ??? Cancer Mother ??? Heart Disease Mother ??? Stroke Father ??? Cataract Maternal Grandmother Current Outpatient Medications Medication Sig ??? cholecalciferol, Vitamin D3, 25 mcg (1,000 unit) tablet Take 5,000 Units by mouth daily. ??? lisinopriL (PRINIVIL) 10 mg tablet Take 10 mg by mouth daily. ??? metoprolol SUCCinate (TOPROL-XL) 25 mg tablet Take 25 mg by mouth daily. ??? QUEtiapine (SEROQUEL) 25 mg tablet Take 2 Tablets by mouth 2 times daily. ??? senna (SENOKOT) 8.6 mg tablet Take 1 Tab by mouth daily as needed. Allergies Allergen Reactions ??? Amlodipine Swelling of tongue ??? Sulfa (Sulfonamide Antibiotics) Hives Objective Vitals Temp: [36.7 ??C (98.1 ??F)] , Heart Rate: --, Pulse: [72] , Resp: [20] , BP: (153)/(127) , SpO2: [100 %] , Numeric Pain Level (Scale 1-10): 0 Weight: Weight : 72.6 kg (160 lb) Body mass index is 26.63 kg/m??. Physical Exam: General: Alert & awake, psychomotor agitation, HEENT: Normocephalic and atraumatic. Mucous membranes moist. Cardiac: Regular rate and rhythm without adventitious sounds. Respiratory: Normal work of breathing, clear to auscultation bilaterally with no adventitious sounds noted. Abdominal: non-distended, BS normoactive, soft, non-tender Neuro: No focal deficits, A&O x 4/4, moves all 4 extremities, responds appropriately but pressured Psych: Wandering gaze as if listening to voices minimal eye contact - non-linear thought process Ext: Distal pulses intact bilaterally. No peripheral edema. Pressure Ulcer Present on admission? No Labs I have personally reviewed Recent Labs 12/17/212057 WBC 9.22 RBC 4.42 HGB 13.1 HCT 38.5 MCV 87 MCH 29.6 MCHC 34.0 PLT 225 NEUTROABS 6.09 Recent Labs 12/17/212056 NA 140 K 4.1 CL 102 CO2 20* BUN 21 CREATININE 1.22* CALCIUM 9.6 LABALBU 4.1 Recent Labs 12/17/212056 TBIL 0.8 ALKPHOS 96 AST 21 ALT 9 Recent Labs 12/17/212219 COLOR Colorless CLARITYU Clear GLUCOSEU Negative BILIRUBINUR Negative KETONES 1+* LABSPEC 1.004 PHUR 6.0 PROTEINUA Negative UROBILINOGEN Normal NITRITE Negative LEUKESTER Negative WBCU 0 - 3 RBCU 0 - 2 BACTERIA None Seen LABCAST <=10 Imaging: reviewed. Assessment Meredith Thornton is a 86 y.o. female with a PMHx significant for HTN, hypothyroidism, GBS with cognitive impairment, CKDIII (BL 1.1-1.2), and falls who is presenting with progressively worsening agitation and altered mental status with unsafe environment at home who is admitted for further dispo plann ing. Plan #Agitation: concern for hallucinations + progression of dementia #Acute on chronic encephalopathy: cognitive impairment with concern for possible lung lesions component via mets/paraneoplastic - RADIO/TV TECHNICIAN Seroquel 50 mg BID - s/p Olanzapine 7.5 mg in ED - CT H/Cervical pending - Delirium + Fall precautions - TSH, B12, Folate pending - PT/OT pending - Nutrition c/s #Lung lesion: 3.9 cm lobulated/spiculated 12/12 CT scan; - Not discussed with patient/family will need further discussion in AM but apparently aware per notes from ED visit Chronic/resolved issues: #HTN: RADIO/TV TECHNICIAN lisinopril + Metoprolol 25 mg #CKDIII: baseline 1.1-1.2 #Hypothyroidism: TSH pending; unclear if still on Levo 25 mcg VTE Prophylaxis: Pharmacologic Prophylaxis: Heparin 5000 units SQ Tid Code: Full --> not discussed but needs to be readdressed in AM Discharge Plan: likely LTC with unsafe home situation Consults: Social Work Admission Status: Inpatient. Anticipated duration of hospitalization is greater than two midnights due to dispo planning . Med rec: Needed in AM Surya Gaitan MD Internal Medicine PGY-3, #[id number] 12/17/21 23:27 Associated attestation - Memo Charles MD - 12/18/2021 0402 EDT Attending Attestation Date of service: 12/18/2021 I have interviewed and examined the patient. I personally reviewed laboratories studies, radiographic studies, ECG, and prior records. I discussed the case with: Dr. Bustos (ED attending physician), Dr. Gaitan (medicine resident). 86yoF w/ hx of cognitive impairment, HTN, CKD, hypothyroidism, tremors with recent loss to follow up with PCP who presents to [facility] with increasing agitated behaviors and delusions. No abnormalities on basic labs, further metabolic studies pending. Declined intracranial imaging, thus on hold. On myevaluation, she was found agitated with labile affect and paranoid, frequently concerned about what those people are doing behind the scenes referring to the ED staff. At this time, despite being AAOx3, she clearly lacks capacity for decision- making, though unclear whether this is due to her unwillingness to engage or an inability to comprehend the situation. DDX includes neurodegenerative d/o, primary psychiatric illness, hyperactive delirium, occult infectious process, nutritional deficiency, structural intracranial lesion or autoimmune d/o (?paraneoplastic process). Would like to get imaging, perform basic neurocog testing (MOCA), send additional metabolic studies but regardless, will need further discussions with patient and family as we negotiate what the patient is willing to comply with while navigating/balancing her safety, her quality of life and our attempts to establish a diagnosis and delineate a treatment plan. Expect that neurology +/- palliative care consults will follow. I agree with the findings and plan of care as documented in the note above. Memo Charles MD Internal Medicine Hospitalist 12/18/2021 3:44 documented in this encounter ED Notes * Yuni Sahu RN - 12/18/2021 1055 EDT Pt increasingly confused over past few hours. Repeatedly stating I need to get home. Refused mostmedications, agreeable to Seroquel. * Ivett Noble RN - 12/18/2021 0315 EDT Report received, this nurse assumed care of pt at this time. Pt in bed, continues to have disorganized thought pattern, not attempting to get out of bed, oriented to place. Frequent checks performed,call light within reach, bed in lowest position. Refusing medications at this time. Will continue to monitor. * Tanisha Alcala - 12/18/2021 0148 EDT Continous monitoring removed per MD Avendaño related to high fall risk. Patient has not attempted to get out of bed, however, continues to be disorganized in thought pattern. Oriented to place, but situationally unaware. 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 * Sarah Prater MD MPH - 12/18/2021 0008 EDT This patient received an evaluation and medical screening exam for emergent medical conditions at the [facility] on 12/18/2021. This documentation is recorded by Francesca Hernandez acting as Scribe under the direction and presence of Sarah Prater MD McNamara, Mariah, MD : I personally performed the services recorded by the scribe in our presence. We confirm the scribe's documentation has been reviewed by us to accurately and completely record our work, treatment, procedures, and medical decision making. Sign-out Note Meredith Thornton is a 86 y.o. female who presents to the ED with altered mental status. The patient endorses 3 days of worsening confusion as well as visual and auditory hallucinations. Care and work-up prior to sign out includes: Unremarkable labs. Internal Medicine was consulted because the patient's family expressed a feeling of being unable to care for the patient at home anymore. Internal Medicine admitted the patient pending CT head and neck for further Social Work consultation. I assumed care of patient from Avni Bustos MD and Sylvester Medeiros MD with medical admission pending. After I assumed care the patient had: Patient had no acute events after my assumption of care. She was subsequently transferred to the floor in a stable condition. Final diagnoses: Dementia with behavioral disturbance, unspecified dementia type (HCC-CMS) ([facility]) * Tanisha Alcala - 12/17/2021 2332 EDT Patient family updated about admission. * Tanisha Alcala - 12/17/20212002 EDT Social work paged to bedside. Family feeling unable to care for patient in home and needs resourcesto best care for patient and patient safety. * Tanisha Alcala - 12/17/2021 1845 EDT Patient unable to be redirected, ruminating on hearing daughters voice through curtains. Difficult to reorient patient to hospital setting. Asking son in law to leave room and stating she is going to , I am dying. Offered PO medications for anxiety, patient declined. Given IM meds with assist of two other staff. Patient grabbing at staff, unable to be soothed. Continues to ruminate on daughter arriving to ED. Patient continues to try to get out of bed. Son in law remains in room behind curtain, out of sight of patient. Son in law reports these temperamental swings as normal. Expresses inability to care for patient athome with current resources related to patient safety. * Sylvester Medeiros MD - 12/17/2021 1733 EDT Emergency Department Visit I, Sylvester Medeiros MD, performed a history and exam of this patient and discussed the case with the resident. I have reviewed and edited this note, and the documentation is consistent with my findings, assessment and plan. I fully participated in the medical decision making. Patient with history of falls and hypertension as well as dementia brought in because of weakness and confusion. Work-up here largely unremarkable without clear cause of her exacerbation and while inthe department, family informed us that they were no longer able to take care of her at home and left. She will therefore be admitted to internal medicine for further care. Agree with resident's assessment and plan. This documentation is recorded by Daniel Goncalves acting as Scribe under the direction and presenceof Avni Bustos MD. Avni Bustos MD: I personally performed the services recorded by the scribe in my presence. I confirm the scribe's documentation has been reviewed by me to accurately and completely record my work, treatment, procedures, and medical decision making. Assessment and ED Course Patient with discussed past medical history presenting with chief complaint of altered mental status. Differential diagnosis includes but is not limited to delirium, intracranial hemorrhage, subdural hematoma, electrolyte normality, disease progression exam and history inconsistent with intracranial infection I was initially told that attending the patient had an acute mental status supervisor records change the past several days to a week which was highly concerning given her recent fall. However on repeat evaluation it appears that the family has been dealing with the issue for months to upwards of a year with progressive decline in mental status. The patient's family left her in the emergency department refusingto take her home. I did explain the risk factors of coming to the hospital and that she could possibly come delirious. Patient was extremely agitated would not participate in her standard clinical condition administered antipsychotics in the emergency room and overall I think this patient has nata ia that has progressed to the point where she is having behavioral disturbances. Given that she wasleft here in the emergency room by her family I did consult with the hospitalist service who graciously agreed to accept the patient. Patient remained clinically stable and was admitted under the hospital service. Final diagnoses: Dementia with behavioral disturbance, unspecified dementia type (HCC-CMS) (HCC) Disposition: Admitted Chief complaint: Altered mental status HPI Meredith Thornton is a 86 y.o. female with a history of HTN and falls who presents to the ED for altered mental status. The patient reports 3 days of worsening confusion, which has been distressing for her. She notes some hallucinations as of late, including two children sitting on the couch with her,and her son in law running out of the house to go to work in the middle of the night. She notes falling a few weeks ago but she did not seek medical care at that time. She denies recent illness, fevers, chest pain, or shortness of breath. History was provided by: Patient Patient's pertinent PMH, FH, SH were reviewed and edited as necessary. ROS A 10-point review of systems was performed. The patient answered negative to all questions with theexceptions of those explicitly detailed as positives in the HPI. Pertinent negatives are also explicitly stated. Physical Exam BP (!) 179/93 (BP Cuff Location: Left arm, BP Patient Position: Supine) Pulse 72 Temp (!) 34.3 ??C (93.7 ??F) (Tympanic) Resp 20 Ht 165.1 cm (65) Wt 72.6 kg (160 lb) SpO2 98% BMI 26.63kg/m?? A medical screening exam was performed. Physical Exam Constitutional: Well appearing. NAD HEENT: Clear conjunctivae. No scleral icterus appreciated. Conjugate gaze. EOMI Mouth: Moist oral mucosa without apparent lesions Neck: Full ROM. Trachea midline Heart: RRR Palpable pulses. Extremities well perfused Lungs: No evidence of respiratory distress. CTAB. Symmetric chest rise. Abdomen: Soft nontender, nondistended no evidence of rebound or guarding. Skin: Warm and dry. No overt rashes or lesions on exposed skin Extremities: No edema moving spontaneously, warm, palpable radial pulse Neuro: CN grossly intact, normal speech. Essential tremor, some lip smacking, linear speech withoutdysarthria. Psych: AAOx3. Appropriate mood and affect. Imaging obtained was reviewed and independently interpreted. CT CERVICAL SPINE WO CONTRAST Final Result 1. No acute fracture or traumatic malalignment of the cervical spine. 2. Multilevel degenerative changes described above. I have personally reviewed the images and the above interpretation and agree with the findings. CT HEAD WO CONTRAST Final Result No acute abnormality; no evidence of intracranial hemorrhage or calvarial fracture, no evidence of acute infarction. I have personally reviewed the images and the above interpretation and agree with the findings. Procedures Procedures * Josephine Whalen - 12/17/2021 1706 EDT The patient was brought in by a visitor, reported not thinking clearly. This Bariatric Surgeon performeda FAST-Exam on the patient, which was negative. Patient reported not feeling safe due to own thinking. Patient preferred to talk further in private setting - flag maker aware. documented in this encounter Miscellaneous Notes * Plan of Care - Samantha Stewart RN - 12/18/2021 1508 EDT Data: Assumed care of pt at 1200 from ED. Pt 86 y.o.-year-old F admitted with a chief complaint of hallucinations and agitation and now with a principal diagnosis of agitation. Pt is A & O to self and place. No complaints of pain. Action:Q1 h safety checks. Q 2 h turns. Redirected pt throughout shift. Up with 1-2 assist and rolling walker.n D/c'd to [facility]. Response: Call neely within reach. Bed alarm is on. SAMANTHA STEWART RN 12/18/2021 15:09 Problem: Delirium Prevention Management Goal: Mental status/cognition is maintained/returned to baseline Outcome: Ongoing Problem: High Fall Risk: Goal: Patient will Remain Free of Falls due to Med. Side Effects Outcome: Ongoing Problem: Sensory: Goal: Ability to compensate for vision loss will be supported Outcome: Ongoing documented in this encounter Plan of Treatment Not on file documented as of this encounter Procedures Procedure Name Priority Date/Time Associated Diagnosis Comments CT HEAD WO CONTRAST STAT 12/18/2021 1 0:[address] CERVICAL SPINE WO CONTRAST STAT 12/18/2021 10:22 EDT ZZCOVID-19 TEST [facility] PCR STAT 12/17/2021 23:38 EDT COVID-19 TESTING STAT 12/17/2021 23:3 8 EDT URINE CHEMICAL (DIP) & SEDIMENT (MICRO) WITH REFLEX TO CULTURE STAT 12/17/2021 22:20 EDT COMPLETE BLOOD COUNT AND DIFFERENTIAL STAT 12/17/2021 20:58 EDT TSH Add-On 12/17/2021 20:57 EDT FOLATE Add-On 12/17/2021 20:57 EDT VITAMIN B12 Add-On 12/17/2021 20:57 EDT COMPREHENSIVE METABOLIC PANEL (CMP) STAT 12/17/2021 20:57 EDT documented in this encounter Results * CT HEAD WO CONTRAST (12/18/2021 10:22 EDT) Anatomical Region Laterality Modality Head Computed Tomogra phy 12/18/2021 10:3 9 EDT Impressions 12/18/2021 10:39 EDT No acute abnormality; no evidence of intracranial hemorrhage or calvarial fracture, no evidence of acute infarction. I have personally reviewed the images and the above interpretation and agree with the findings. Narrative 12/18/2021 10:39 EDT EXAM: CT HEAD WO CONTRAST HISTORY: Increasing confusion and memory issues. Has had fall in last week. Not on AC.; Memory Loss ?? TECHNIQUE: CT head without contrast. Structured report code: [id number].[email or web address] COMPARISON: CT head 04/25/2019 FINDINGS: PARENCHYMA: No evidence of infarction. No parenchymal hemorrhage. Remote lacunar infarcts or dilated perivascular spaces. Diffuse parenchymal volume loss. No mass or midline shift. EXTRA-AXIAL SPACES: No extra-axial collection. Stable 7 mm peripherally calcified lesion in the left frontal calvarium, likely calcified meningioma. VENTRICULAR SYSTEM: Normal size and configuration. No obstructive hydrocephalus. VESSELS: Limited evaluation without IV contrast. Calcifications in the carotid siphons and intradural vertebral arteries. BONES: Lucencies in the posterior fossa calvarium, unchanged, likely arachnoid granulations or other benign vascular etiology. No evidence of fracture. Degenerative changes of the temporomandibular joints. ORBITS: Bilateral lens replacement. PARANASAL SINUSES/MASTOID AIR CELLS: Predominantly clear. EXTRACRANIAL SOFT TISSUES: Unremarkable. Procedure Note Uri Talbot MD - 12/18/2021 EXAM: CT HEAD WO CONTRAST HISTORY: Increasing confusion and memory issues. Has had fall in lastweek. Not on AC.; Memory Loss TECHNIQUE: CT head without contrast. Structured report code: [email or web address] COMPARISON: CT head 04/25/2019 FINDINGS: PARENCHYMA: No evidence of infarction. No parenchymal hemorrhage. Remote lacunarinfarcts or dilated perivascular spaces. Diffuse parenchymal volume loss.No mass or midline shift. EXTRA-AXIAL SPACES: No extra-axial collection. Stable 7 mm peripherally calcified lesion inthe left frontal calvarium, likely calcified meningioma. VENTRICULAR SYSTEM: Normal size and configuration. No obstructive hydrocephalus. VESSELS: Limited evaluation without IV contrast. Calcifications in the carotidsiphons and intradural vertebral arteries. BONES: Lucencies in the posterior fossa calvarium, unchanged, likely arachnoidgranulations or other benign vascular etiology. No evidence of fracture.Degenerative changes of the temporomandibular joints. ORBITS: Bilateral lens replacement. PARANASAL SINUSES/MASTOID AIR CELLS: Predominantly clear. EXTRACRANIAL SOFT TISSUES: Unremarkable. IMPRESSION No acute abnormality; no evidence of intracranial hemorrhage or calvarialfracture, no evidence of acute infarction. I have personally reviewed the images and the above interpretation andagree with the findings. Kristen Gasca MD IM CT ORDERABLES * CT CERVICAL SPINE WO CONTRAST (12/18/2021 10:22 EDT) Anatomical Region Laterality Modality Computed Tomogra phy 12/18/2021 11:1 9 EDT Impressions 12/18/2021 11:19 EDT 1. ??No acute fracture or traumatic malalignment of the cervical spine. 2. ??Multilevel degenerative changes described above. I have personally reviewed the images and the above interpretation and agree with the findings. Narrative 12/18/2021 11:19 EDT EXAM: CT CERVICAL SPINE WO CONTRAST HISTORY: Increasing confusion and memory issues. Has had fall in last week. Not on AC. TECHNIQUE: CT cervical spine without contrast. Structured report code: [id number].[id number] COMPARISON: PET/CT 10/26/2021. FINDINGS: SURGICAL CHANGES: None. FRACTURES: None. ALIGNMENT: There is straightening of the normal cervical lordosis as well as exaggerated kyphosis in the imaged upper thoracic spine. There is a stepwise minimal anterolisthesis of C7 on T1, T1 on T2, and T2 on T3. There is also minimal anterolisthesis of C2 on C3. BONES: No significant vertebral body height loss. Lobulated well-defined lucent lesions within the occipital bone likely indicative of prominent arachnoid granulations, not substantially changed compared to the recent PET/CT.. INTERVERTEBRAL DISCS: Multilevel discogenic degenerative changes are seen in the included spine. JOINTS: Moderate to severe facet arthropathy is seen in the cervical spine. There is fusion of the C3-C4 facets on the left. Anterior atlanto-axial, lateral atlanto-axial, and atlanto-occipital joints demonstrate degenerative changes. No joint space widening to suggest ligamentous injury. SPINAL CANAL: No significant stenosis. NEURAL FORAMINA: Varying degrees of neural foraminal stenosis are present, most prominent from C3-C7 on the left where stenosis is at least moderate. LUNG APICES: Clear. EXTRASPINAL SOFT TISSUES: Unremarkable. VISIBLE INTRACRANIAL CONTENTS: Unremarkable aside from vascular calcifications. Procedure Note Ben Taylor MD - 12/18/2021 EXAM: CT CERVICAL SPINE WO CONTRAST HISTORY: Increasing confusion and memory issues. Has had fall in lastweek. Not on AC. TECHNIQUE: CT cervical spine without contrast. Structured report code:[email or web address] COMPARISON: PET/CT 10/26/2021. FINDINGS: SURGICAL CHANGES: None. FRACTURES: None. ALIGNMENT: There is straightening of the normal cervical lordosis as well asexaggerated kyphosis in the imaged upper thoracic spine. There is astepwise minimal anterolisthesis of C7 on T1, T1 on T2, and T2 on T3.There is also minimal anterolisthesis of C2 on C3. BONES: No significant vertebral body height loss. Lobulated well-defined lucentlesions within the occipital bone likely indicative of prominent arachnoidgranulations, not substantially changed compared to the recent PET/CT.. INTERVERTEBRAL DISCS: Multilevel discogenic degenerative changes are seen in the includedspine. JOINTS: Moderate to severe facet arthropathy is seen in the cervical spine. Thereis fusion of the C3-C4 facets on the left. Anterior atlanto-axial, lateralatlanto-axial, and atlanto-occipital joints demonstrate degenerativechanges. No joint space widening to suggest ligamentous injury. SPINAL CANAL: No significant stenosis. NEURAL FORAMINA: Varying degrees of neural foraminal stenosis are present, most prominentfrom C3- C7 on the left where stenosis is at least moderate. LUNG APICES: Clear. EXTRASPINAL SOFT TISSUES: Unremarkable. VISIBLE INTRACRANIAL CONTENTS: Unremarkable aside from vascular calcifications. IMPRESSION 1. No acute fracture or traumatic malalignment of the cervical spine. 2. Multilevel degenerative changes described above. I have personally reviewed the images and the above interpretation andagree with the findings. Kristen Gasca MD [facility] CT ORDERABLES * COVID-19 TEST [facility] PCR (12/17/2021 23:38 EDT) Swab BOTH ANTERIOR NARES / Unknown Swab / Unknown 12/17/2021 23:38 EDT 12/17/2021 23:40 EDT Avni Torres MD MICROBIOL OG - GENERAL ORDERABLES Performing Organization Address [facility] [[email or web address]] Co de Phone Number [facility] [address] [place] [address] * COVID-19 TESTING (12/17/2021 23:38 EDT) COVID-19 rt-PCR Result Negative Negative 12/18/2021 1:02 EDT [facility] Comment: This test [...] clinical observations, patient history, and epidemiological information. Performed on the [employer] GeneXpert Instrument Performing Lab GeneXpert [facility] 12/18/2021 1:02 EDT [facility] Swab BOTH ANTERIOR NARES / Unknown Swab / Unknown 12/17/2021 23:38 EDT 12/17/2021 23:40 EDT Avni Torres MD MICROBIOL OGY - GENERAL ORDERABLES Performing Organization Address [facility] [[email or web address]] Co de Phone Number [facility] [address] [place] [address] * (ABNORMAL) URINE CHEMICAL (DIP) & SEDIMENT (MICRO) WITH REFLEX TO CULTURE (12/17/2021 22:20 EDT) Color UA Colorless Colorless, Yellow 12/17/2021 22:32 [facility] Clarity UA Clear Clear 12/17/2021 22:32 [facility] Glucose UA Negative Negative 12/17/2021 22:32 [facility] Bilirubin UA Negative Negative 12/17/2021 22:32 [facility] Ketones UA 1+(A) Negative 12/17/2021 22:32 [facility] Specific Strang, Urine 1.004 1.001 - 1.035 12/17/2021 22:32 [facility] Blood UA Negative Negative 12/17/2021 22:32 [facility] Urobilinogen UA Normal Normal mg/dL 022 22:32 [facility] Nitrite UA Negative Negative 12/17/2021 22:32 [facility] Leukocyte Esterase UA Negative Negative 12/17/2021 22:32 [facility] Protein UA Negative Negative 12/17/2021 22:32 [facility] pH, UA 6.0 4.6 - 8.0 12/17/2021 22:32 [facility] Urine RBC Count, Auto 0 - 2 0 - 2 Cells/HPF 12/17/2021 22:32 [facility] Urine WBC Count, Auto 0 - 3 0 - 3 Cells/HPF 12/17/2021 22:32 [facility] Urine Squamous Count, Auto Few(A) None Seen Cells/HPF 12/17/2021 22:32 [facility] Urine Hyaline Cast Count, Auto <=10 <=10 Casts/LPF 12/17/2021 22:32 [facility] Urine Bacteria Count, Auto None Seen None Seen Bacteria/HPF 12/17/2021 22:32 [facility] Urine URINE SPECIMEN COLLECTION, CLEAN CATCH / Unknown Urine Collect / Unknown 12/17/2021 22:20 EDT 12/17/2021 22:25 EDT Narrative [facility] - 12/17/2021 22:32 EDT NOTE: Reflex to Urine Culture test is not indicated based on Urine Sediment Analysis results. Urine Sediment Analysis results are unreliable on urines that are unrefrigerated for >2 hrs or refrigerated >8 hrs. Avni Torres MD URINALYSI S ORDERABLES [facility] [address] [place] [address] * (ABNORMAL) COMPLETE BLOOD COUNT AND DIFFERENTIAL (12/17/2021 20:58 EDT) WBC 9.22 4.00 - 12.40 K/cmm 12/17/2021 21:23 [facility] RBC 4.42 3.86 - 5.04 M/cmm 12/17/2021 21:23 [facility] Hemoglobin 13.1 11.6 - 15.2 gm/dL 12/17/2021 21:23 [facility] HCT 38.5 34.9 - 44.4 % 12/17/2021 21:23 [facility] MCV 87 81 - 98 fl 12/17/2021 21:23 [facility] MCH 29.6 26.7 - 33.3 pg 12/17/2021 21:23 [facility] MCHC 34.0 32.1 - 35.9 gm/dL 12/17/2021 21:23 [facility] RDW-CV 14.0 <14.7 % 12/17/2021 21:23 [facility] RDW-SD 44.7 <50.4 fl 12/17/2021 21:23 [facility] PLT 225 141 - 377 K/cmm 12/17/2021 21:23 [facility] MPV 11.5 9.5 - 12.7 fl 12/17/2021 21:23 [facility] % Neutrophils 65.9 % 12/17/2021 21:23 [facility] % Lymphocytes 24.1 % 12/17/2021 21:23 [facility] % Monocytes 7.4 % 12/17/2021 21:23 [facility] % Eosinophils 0.9 % 12/17/2021 21:23 [facility] % Basophils 0.8 % 12/17/2021 21:23 [facility] % Immature Grans 0.9 % 12/18/19 21:23 [facility] Absolute Neutrophils 6.09 2.20 - 8.85 K/cmm 12/17/2021 21:23 [facility] Absolute Lymphocytes 2.22 1.09 - 3.30 K/cmm 12/17/2021 21:23 [facility] Absolute Monocytes 0.68 0.10 - 0.80 K/cmm 12/17/2021 21:23 [facility] Absolute Eosinophils 0.08 0.03 - 0.61 K/cmm 12/17/2021 21:23 [facility] ABS Basophils 0.07 0.01 - 0.11 K/cmm 12/17/2021 21:23 [facility] Absolute Immature Grans 0.08(H) 0.00 - 0.06 K/cmm 12/17/2021 21:23 [facility] Type of Differential: Auto 12/17/2021 21:23 [facility] Blood VENOUS BLOOD / Unknown Venipuncture / Unknown 12/17/2021 20:58 EDT 12/17/2021 21:13 EDT Avni Torres MD PACKAGES & DNA PROBE ORDERABLES [facility] [address] [place] [address] * FOLATE (12/17/2021 20:57 EDT) Folate 7.1 See Note ng/mL 12/18/2021 8:57 EDT [facility] Comment: Reference Ranges for Folate: Deficient: ?< 3.4 ng/mL Indeterminate: ??3.4 - 5.4 ng/mL Normal: ? > 5.4 ng/mL The results of this assay can be falsely elevated due to the consumption of Biotin. Blood VENOUS BLOOD / Unknown Venipuncture / Unknown 12/17/2021 20:57 EDT 12/17/2021 21:17 EDT Surya Gaitan MD CHEMISTRY & BLOOD G ORDERABLES Performing Organization Address [facility] [[email or web address] Co de Phone Number [facility] [address] [place] [address] * VITAMIN B12 (12/17/2021 20:57 EDT) Vitamin B12 583 211 - 911 pg/mL 12/18/2021 8:54 EDT [facility] Blood VENOUS BLOOD / Unknown Venipuncture / Unknown 12/17/2021 20:57 EDT 12/17/2021 21:17 EDT Surya Gaitan MD CHEMISTRY & BLOOD G ORDERABLES Performing Organization Address [facility] [[email or web address]] Co de Phone Number [facility] [address] [place] [address] * TSH (12/17/2021 20:57 EDT) TSH 3.37 0.47 - 4.68 mIU/L 12/18/2021 0:48 EDT [facility] Blood VENOUS BLOOD / Unknown Venipuncture / Unknown 12/17/2021 20:57 EDT 12/17/2021 21:17 EDT Narrative [facility] - 12/18/2021 0:48 EDT The results of this assay can be falsely lowered due to the consumption of Biotin. Surya Gaitan MD CHEMISTRY & BLOOD G ORDERABLES [facility] [address] [place] [address] * (ABNORMAL) COMPREHENSIVE METABOLIC PANEL (CMP) (12/17/2021 20:57 EDT) Sodium 140 136 - 145 mmol/L 12/17/2021 21:29 [facility] Potassium 4.1 3.5 - 5.0 mmol/L 12/17/2021 21:29 [facility] Chloride 102 96 - 110 mmol/L 12/17/2021 21:29 [facility] CO2 Total 20(L) 22 - 32 mmol/L 12/17/2021 21:29 [facility] Glucose 96 70 - 100 mg/dL 12/17/2021 21:29 [facility] BUN 21 10 - 26 mg/dL 12/17/2021 21:29 [facility] Creatinine 1.22(H) 0.52 - 1.04 mg/dL 12/17/2021 21:29 [facility] eGFR 43(L) >60 mL/min/1.7 3m2 12/17/2021 21:29 [facility] Total Protein 6.9 6.3 - 8.2 g/dL 12/17/2021 21:29 [facility] Albumin 4.1 3.4 - 4.9 g/dL 12/17/2021 21:29 [facility] Alkaline Phosphatase 96 38 - 126 U/L 12/17/2021 21:29 [facility] AST 21 15 - 46 U/L 12/17/2021 21:29 [facility] ALT 9 <35 U/L 12/17/2021 21:29 [facility] Bilirubin, Total 0.8 <1.4 mg/dL 12/18/19 21:29 [facility] Calcium 9.6 8.5 - 10.5 mg/dL 12/17/2021 21:29 [facility] Albumin/Globulin Ratio 1.5 1.0 - 2.5 12/17/2021 21:29 EDT [facility] Anion Gap 18(H) 5 - 14 12/17/2021 21:29 EDT [facility] Blood VENOUS BLOOD / Unknown Venipuncture / Unknown 12/17/2021 20:57 EDT 12/17/2021 21:17 EDT Avni Torres MD CHEMISTRY & BLOOD GAS ORDERABLES [facility] [address] [place] [address] documented in this encounter Visit Diagnoses Diagnosis Dementia with behavioral disturbance, unspecified dementia type Agitation Other and unspecified special symptom or syndrome, not elsewhere classified Dementia with behavioral disturbance, unspecified dementia type Constipation Unspecified constipation Hypertension Unspecified essential hypertension Hypothyroidism Unspecified hypothyroidism Personal history of fall documented in this encounter Admitting Diagnoses Diagnosis Agitation Other and unspecified special symptom or syndrome, not elsewhere classified documented in this encounter Administered Medications Inactive Administered Medications - up to 3 most recent administrations Medication Order MAR Action Action Date Dose Rate Site levothyroxine (SYNTHROID) tablet 25 mcg 25 mcg, oral, DAILY, First dose on Fri12/18/21 at 1300, Until Discontinued, Routine Given 12/18/2021 13:27 EDT 25 mcg metoprolol SUCCinate (TOPROL-XL) tablet 25 mg 25 mg, oral, DAILY, First dose (after last reorder) on Fri12/18/21 at 1215, Until Discontinued, Routine Given 12/18/2021 13:27 EDT 25 mg OLANZapine (ZYPREXA) injection 2.5 mg 2.5 mg, intramuscular, NOW X1, 1 dose, On Fri12/17/21 at 1830, STAT Given 12/17/2021 18:40 EDT 2.5 mg OLANZapine (ZYPREXA) injection 5 mg 5 mg, intramuscular, NOW X1, 1 dose, On Fri12/17/21 at 1945, STAT Given 12/17/2021 20:04 EDT 5 mg QUEtiapine (SEROQUEL) tablet 50 mg 50 mg, oral, 2 TIMES DAILY, First dose on Fri12/18/21 at 0900, Until Discontinued, Routine Given 12/18/2021 10:30 EDT 50 mg documented in this encounter Discontinued Medications Medication Sig Discontinue Reason Start Date End Da te lisinopriL (PRINIVIL) 10 mg tablet Take 10 mg by mouth daily. 06/21/2020 12/18/2021 cholecalciferol, Vitamin D3, 25 mcg (1,000 unit) tablet Take 5,000 Units by mouth daily. 12/18/2021 documented as of this encounter Historical Medications * This list may reflect changes made after this encounter. Medication Sig Dispensed Refills Start Date End Date levothyroxine (SYNTHROID) 25 mcg tablet Take 25 mcg by mouth daily. added in this encounter Active and Recently Administered Medications Times are shown in EDT. Scheduled Medication Order 12/16/2021 12/17/2021 12/18/2021 cholecalciferol (Vitamin D3) tablet 5,000 Units 5,000 Units, oral, DAILY, First dose on Fri12/18/21 at 0900, Until Discontinued, Routine 1030 (Hold - Provide r: Yuni Sahu RN - Reason: Patient/family refused) levothyroxine (SYNTHROID) tablet 25 mcg 25 mcg, oral, DAILY, First dose on Fri12/18/21 at 1300, Until Discontinued, Routine 1327 (Given - Provid er: Samantha Stewart RN) metoprolol SUCCinate (TOPROL-XL) tablet 25 mg 25 mg, oral, DAILY, First dose (after last reorder) on Fri12/18/21 at 1215, Until Discontinued, Routine 1327 (Given - Provid er: Samantha Stewart RN) OLANZapine (ZYPREXA) injection 2.5 mg (COMPLETED) 2.5 mg, intramuscular, NOW X1, 1 dose, On Fri12/17/21 at 1830, STAT 1840 (Given - Provider: Tanisha Alcala) OLANZapine (ZYPREXA) injection 5 mg (COMPLETED) 5 mg, intramuscular, NOW X1, 1 dose, On Fri12/17/21 at 1945, STAT 2004 (Given - Provider: Tanisha Alcala) QUEtiapine (SEROQUEL) tablet 50 mg 50 mg, oral, 2 TIMES DAILY, First dose on Fri12/18/21 at 0900, Until Discontinued, Routine 1030 (Given - Provid er: Yuni Sahu RN) PRN Medication Order 12/16/2021 12/17/2021 12/18/2021 acetaminophen (TYLENOL) tablet 650 mg 650 mg, oral, EVERY 6 HOURS PRN, Starting on Fri12/18/21 at 0600, Until Fri12/18/21 at 1957, Pain, Fever, Routine lidocaine (PF) 10 mg/mL (1 %) injection 2 mg 2 mg, intradermal, PRN, 4 doses, Starting on Fri12/18/21 at 0600, Until Fri12/18/21 at 1957, peripheral intravenous catheter placement, Routine ondansetron (ZOFRAN-ODT) disintegrating tablet 4 mg 4 mg, oral, EVERY 6 HOURS PRN, Starting on Fri12/18/21 at 0600, Until Fri12/18/21 at 1957, Nausea, Routine polyethylene glycol 3350 (MIRALAX) packet 17 g 17 g, oral, DAILY PRN, Starting on Fri12/18/21 at 0600, Until Fri12/18/21 at 1957, Constipation, Routine ramelteon (ROZEREM) tablet 8 mg 8 mg, oral, AT BEDTIME PRN, Starting on Fri12/18/21 at 0600, Until Fri12/18/21 at 1957, Sleep, Routine senna (SENOKOT) tablet 1 Tablet 1 Tablet, oral, AT BEDTIME PRN, Starting on Fri12/18/21 at 0600, Until Fri12/18/21 at 1957, Constipation, Routine documented in this encounter Orders Medications Ordered That Naveen ht Not Have Been Administered Count Last Ordered Date First Ordered Date acetaminophen (TYLENOL) tablet 650 mg 1 cholecalciferol (Vitamin D3) tablet 5,000 Units 1 12/18/2021 lidocaine (PF) 10 mg/mL (1 % ) injection 2 mg 1 12/18/2021 lisinopriL (PRINIVIL) tablet 10 mg 1 2021 metoprolol SUCCinate (TOPROL -XL) tablet 25 mg 1 12/18/2021 ondansetron (ZOFRAN-ODT) dis integrating tablet 4 mg 1 12/18/2021 polyethylene glycol 3350 (NE RALAX) packet 17 g 12/18/2021 ramelteon (ROZEREM) tablet 8 mg 1 2 senna (SENOKOT) tablet 1 Tablet 1 2 OLANZapine (ZYPREXA) injection 2.5 mg 1 Diet Count Last Ordered Date First Orde red Date DISCHARGE DIET 1 12/18/2021 Nursing Count Last Ordered Date First Orde red Date ACTIVITY INSTRUCTIONS 1 12/18/2021 DRIVING INSTRUCTIONS 1 12/18/2021 Admission Count Last Ordered Date First Orde red Date ADMIT TO INPATIENT 1 12/17/2021 Transfer Count Last Ordered Date First Orde red Date ED BED REQUEST 1 12/17/2021 Discharge Count Last Ordered Date First Orde red Date DISCHARGE PATIENT 1 12/18/2021 Legal Count Last Ordered Date First Orde red Date MISCELLANEOUS DISCHARGE INSTRUCTIONS 12/03 documented in this encounter Care Teams Digital Media Buyer Relationship Specialty Start Date End Date Eloina Brewer NP [address] [place] [address] [address] [place] [address] PCP - General 10/16/20 documented as of this encounter
--- OUTSIDE RECORDS SUMMARY | 2024-02-02 18:27 | XMS_ITS | Encounter Summary ---
Author Organization [facility] Address [address] [place] [id number] Care Team Providers Care Bleach Liquor Maker Name Role Phone Eloina Brewer NP Primary Care Provider [phone] Reason for Referral * Radiology Services (Routine/Next Available) - Authorization Not Required Specialty Diagnoses / Procedures Referred By Kayla goodman Referred To Contact Nuclear Medicine Diagnoses Solitary pulmonary nodule Procedures PET CT EYE TO THIGH Eloina Brewer NP [address] [place] [address] [facility] Referral ID Status Reason Start Date Expiration Date Visits Requested Visits Authorized [id number] Authorization Not Required 09/26/2021 1 1 Reason for Visit * Radiology Services (Routine/Next Available) - Authorization Not Required Specialty Diagnoses / Procedures Referred By Kayla goodman Referred To Contact Nuclear Medicine Diagnoses Solitary pulmonary nodule Procedures PET CT EYE TO THIGH Eloina Brewer NP [address] [place] [address] [facility] Referral ID Status Reason Start Date Expiration Date Visits Requested Visits Authorized [id number] Authorization Not Required 09/26/2021 1 1 Encounter Details Date Type Department Care Team (Latest Contact Info) Description 10/26/2021 13:20 EDT - 10/26/2021 23:59 EDT [facility] [address] [address] Solitary pulmonary nodule Discharge Disposition: Home or Self Care Social [...] No 12/03/2017 documented as of this encounter Medications at Time of Discharge [...] Procedure Name Priority Date/Time Associated Diagnosis Comments PET CT EYE TO THIGH Routine 10/26/2021 1 5:55 EDT Solitary pulmonary nodule POCT GLUCOSE, INTERFACED Routine 10/26/2021 13:53 EDT documented in this encounter Results * PET CT EYE TO THIGH (10/26/2021 15:55 EDT) Anatomical Region Laterality Modality Body Positron Emissio n Tomography (PET) 10/26/2021 17:4 0 EDT Impressions 10/26/2021 17:40 EDT 1. ??Highly metabolically active left lower lobe mass. Differential includes organizing pneumonia versus bronchogenic neoplasm. A repeat CT can be obtained after treatment for sinusitis in 2-3 months. 2. ??No suspicious hilar or mediastinal uptake to suggest metastatic disease. 3. ??No other abnormal FDG uptake to suggest distant metastatic disease. 4. ??Sinusitis involving the frontal, right maxillary, and anterior ethmoidal sinuses. I have personally reviewed the images and the above interpretation and agree with the findings. Narrative 10/26/2021 17:[address] EYE TO THIGH 10/26/2021 2:00 PM Signs and Symptoms: ??follow up left lower lobe pulmonary nodule ?? Comparison: Outside CT chest 09/23/[address] head 04/25/2019 Technique: Approximately 86 minutes following the IV injection of 9.3 mCi of [id number], 3D TOF PET imaging was obtained from the skull base to upper thighs using a Wi3 digital ??PET/CT system. ??The blood glucose level prior to injection was 91 mg/dl. ??The injection site was the left antecubital fossa. Oral contrast was administered. Findings: HEAD/NECK: Complete opacification of the frontal, right maxillary, and anterior ethmoidal sinuses with increased FDG uptake. No enlarged or FDG avid cervical lymph nodes. CHEST: The previously identified left lower lobe oblong mass is intensely FDG avid and measures approximately 33 x 17 mm. There is a small groundglass nodule within the right upper lobe without increased FDG activity. No enlarged or FDG avid mediastinal or hilar lymph nodes. Severe coronary artery calcification. ABDOMEN/PELVIS: No abnormal FDG uptake within the abdomen or pelvis. Atherosclerotic calcification of the abdominal aorta or major branch vessels without aneurysmal dilatation. Benign-appearing simple right renal cyst. Nodular hypertrophy of both adrenal glands without increased FDG uptake. MUSCULOSKELETAL: No concerning FDG uptake. 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 Severe degenerative change of both glenohumeral joints with evidence of synovitis. Procedure Note Avtar Case MD - 10/26/[address] EYE TO THIGH 10/26/2021 2:00 PM Signs and Symptoms: follow up left lower lobe pulmonary nodule Comparison: Outside CT chest 09/23/[address] head 04/25/2019 Technique: Approximately 86 minutes following the IV injection of 9.3 mCi [id number], 3D TOF PET imaging was obtained from the skullbase to upper thighs using a [employer] digital PET/CT system. Theblood glucose level prior to injection was 91 mg/dl. The injection sitewas the left antecubital fossa. Oral contrast was administered. Findings: HEAD/NECK: Complete opacification of the frontal, right maxillary, and anteriorethmoidal sinuses with increased FDG uptake. No enlarged or FDG avidcervical lymph nodes. CHEST: The previously identified left lower lobe oblong mass is intensely FDGavid and measures approximately 33 x 17 mm. There is a small groundglassnodule within the right upper lobe without increased FDG activity. Noenlarged or FDG avid mediastinal or hilar lymph nodes. Severe coronaryartery calcification. ABDOMEN/PELVIS: No abnormal FDG uptake within the abdomen or pelvis. Atheroscleroticcalcification of the abdominal aorta or major branch vessels withoutaneurysmal dilatation. Benign-appearing simple right renal cyst. Nodularhypertrophy of both adrenal glands without increased FDG uptake. MUSCULOSKELETAL: No concerning FDG uptake. 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 Severedegenerative change of both glenohumeral joints with evidence ofsynovitis. IMPRESSION 1. Highly metabolically active left lower lobe mass. Differentialincludes organizing pneumonia versus bronchogenic neoplasm. A repeat CTcan be obtained after treatment for sinusitis in 2-3 months. 2. No suspicious hilar or mediastinal uptake to suggest metastaticdisease. 3. No other abnormal FDG uptake to suggest distant metastatic disease. 4. Sinusitis involving the frontal, right maxillary, and anteriorethmoidal sinuses. I have personally reviewed the images and the above interpretation andagree with the findings. Eloina Brewer NP IMG NM ORDERABLES * POCT GLUCOSE, INTERFACED (10/26/2021 13:53 EDT) Glucose, POC 91 70 - 100 mg/dL 10/29/2021 7:34 EDT [facility] HN LAB POC COMMENT (GLUCOSE) Test Performed by Nursing Services 10/29/2021 7:34 EDT [facility] Blood CAPILLARY BLOOD / Unknown 10/26/2021 13:53 EDT 10/29/2021 7:34 EDT Provider Unknown MD POINT OF CARE TEST O RDERABLES [facility] [address] [place] [address] documented in this encounter Visit Diagnoses Diagnosis Solitary pulmonary nodule documented in this encounter Administered Medications Inactive Administered Medications - up to 3 most recent administrations Medication Order MAR Action Action Date Dose Rate Site fludeoxyglucose (F-18) FDG injection 15 millicurie 15 millicurie, radiopharm IV, NOW X1, 1 dose, On Fri10/26/21 at 1430, Routine, Imaging Protocol Orders Given 10/26/2021 14:01 EDT 9.83 millicuries documented in this encounter Orders Medications Ordered That Naveen ht Not Have Been Administered Count Last Ordered Date First Ordered Date fludeoxyglucose (F-18) FDG i njection 15 millicurie 1 10/26/2021 documented in this encounter Care Teams Bleach Liquor Maker Relationship Specialty Start Date End Date Eloina Brewer NP [address] [place] [address] PCP - General 10/16/20 documented as of this encounter
--- OUTSIDE RECORDS SUMMARY | 2024-02-02 18:27 | XMS_ITS | Encounter Summary ---
Author Organization [facility] Address [address] [place] [address] Care Team Providers Care Contract Writer Name Role Phone Eloina Brewer JOURNAL CLERK Primary Care Provider Encounter Details Date Type Department Care Team (Latest Contact Info) Description 12/15/2021 Travel Social History Tobacco Use Types Packs/Day [...] on filedocumented in this encounter Care Teams Contract Writer Relationship Specialty Start Date End Date Eloina Brewer, JOURNAL CLERK [address] [place] [id number] PCP - General 10/16/20 documented as of this encounter
--- OUTSIDE RECORDS SUMMARY | 2024-02-02 18:27 | XMS_ITS | Encounter Summary ---
Author Organization [facility] Address [address] [place] [address] Care Team Providers Care Community Living Specialist Name Role Phone Camila Moreland MD Primary Care Provider [phone] Reason for Visit * Reason Comments Altered Mental Status Pt with daughter f or worsening confusion and hallucinations x three weeks. No prior hx of similar. Recently switched to different mail order source of propranolol and daughter feels that this may be related. Pt A&O but slow to answer questions, which is unusual for pt. Pt also had single episode of vomiting en route to ER. Denies pain. A&O. Respirations unlabored. Skin warm & dry. NAD. Encounter Details Date Type Department Care Team (Late st Contact Info) Description 04/25/2019 18:03 EST - 04/25/2019 22:18 EST Emergency [facility] Emergency Department - [address] [id number] Kenny Birmingham MD [address] [place] [address], [address] [place] [address] Non-intractable vomiting with nausea, unspecified vomiting type (Primary Dx); Hallucination Discharge Disposition: Home or Self Care Social History Tobacco Use Types Packs/Day Years Used Date Smoking Tobacco: Never Smokeless Tobacco: Never Sex and Gender Information Value Date Recorded Sex Assigned at Not on file Gender Identity Female 07/03/2020 13:32 EST Sexual Orientation Not on file documented as of this encounter Last Filed Vital Signs Vital Sign Reading Time Taken Comments Blood Pressure 170/53 04/25/2019 2100 EST Pulse - - Temperature 36.9 ??C (98.4 ??F) 04/25/2019 1801 EST Respiratory Rate 18 04/25/2019 2216 EST Oxygen Saturation 97% 04/25/2019 2216 EST Inhaled Oxygen Concentration - - Weight 88.9 kg (196 lb) 04/25/2019 1801 EST Height 160 cm (5' 3) 04/25/2019 1801 EST Body Mass Index 34.72 04/25/2019 1801 EST documented in this encounter [...] this encounter Discharge Instructions * Discharge Instructions* Kenny Birmingham MD - 04/25/2019 21:51 EST You were seen for hallucinations for the past few weeks and vomiting. Because of this is not clear,your labs looked good. The CT scan showed old strokes, and an old area in the front of the brain that is unchanged from 10 years ago. This could be related to the Dramamine that you are taking so I recommend stopping that. Please return to the ED if you have a seizure activity, severe headaches unusual weakness, numbness, vision changes or any other concerning signs or symptoms. Please follow-up with your doctor in the next few days, stop taking Dramamine. documented in this encounter Medications at Time of Discharge Medication Sig Dispensed Refills Start Date End Date FLAXSEED OIL ORAL Take 1 Tab by mouth three times a week. 08/31/2020 propRANolol (INDERAL) 60 mg tablet Take 40 mg by mouth every 8 hours. 08/31/2020 documented as of this encounter Discharge Disposition Disposition Code Departure Means Destination Home or Self Skilled Nursing documented in this encounter ED Notes * Danika Marino RN - 04/25/2019 2217 EST Pt ordered for discharge. Obtained vital signs, assessed pain, and removed PIV. Reviewed discharge instructions, stopping dramamine, and encouraged PCP follow- up. Pt and daughter verbalized understanding and denied any questions at this time. Pt left the department in stable condition with steady gait, NAD. * Kenny Birmingham MD - 04/25/2019 1813 EST This patient received an evaluation and medical screening exam for emergent medical conditions at the [facility] on 04/25/2019 Scribe attestation: This documentation is recorded by Naresh Valencia acting as Scribe under the direction and presence of Kenny Birmingham MD. Kenny Birmingham MD: I personally performed the services recorded by the scribe in my presence. I confirm the scribe's documentation has been reviewed by me to accurately and completely record my work, treatment, procedures, and medical decision making. Altered Mental Status (Pt with daughter for worsening confusion and hallucinations x three weeks. No prior hx of similar. Recently switched to different mail order source of propranolol and daughter feels that this may be related. Pt A&O but slow to answer questions, which is unusual for pt. Ptalso had single episode of vomiting en route to ER. Denies pain. A&O. Respirations unlabored. Skin warm & dry. NAD.) HPI Joselo Thornton is a 83 y.o. female with PMH including macular degeneration, Guillain-Bare disease, HTN, and benign neoplasm of the right retina who presents to the ED for subacute hallucinations and nausea. The daughter reports during thanksgiving the patient had begun to have auditory and visual hallucinations, these have continued to be present over the past 3 weeks intermittently. The hallucinations include the patient believing there were kids playing in their house and that someone had broken into the home while they were there, the daughter notes none of this actually happened. The patient is aware of these and knows that they are not real. She has had no persistent confusion. The daughter states tonight they had took the patient out to see the [employer], the patient normally becomes car sick and took a Dramamine to tolerate the car ride, however she soon became extremelynauseas after taking the medication and vomited. Patient feels disoriented upon arrival, however, feels much better now. The daughter said that she was probably just disoriented because of the nausea. She takes Dramamine regularly for car rides, and has taken it recently during car trips. Nausea has subsided upon ED arrival. She has also been continuing to experience visual changes and notes earlier today she saw something green come out of the [employer] tree and move up in the air. The daughter made us aware the patient takes Propranolol for essential tremors and HTN, she has had issues with different manufacturers of the medication in the past and recently switched to mail order versionof the medication. She has no current hallucinations, she has at her baseline and has no current complaints. Patient denies chest pain, SOB, fevers, trouble urinating, dysuria, numbness, weakness, and trouble ambulating from baseline today. They have not seen the PCP regarding these hallucinations.Patient is hypertensive at 187/107 in triage, vitals otherwise stable. History was provided by: Patient, daughter, and medical records. Patient's pertinent PMH, FH, SH were reviewed and updated PRN. ROS A 10-point review of systems was performed. The patient answered negative to all questions with theexceptions of those explicitly detailed as positives in the HPI. Pertinent negatives are also explicitly stated. Physical Exam Vital Signs Vitals Reassessment?: Yes Temp: 36.9 ??C (98.4 ??F) Heart Rate: (!) 48 BPM Resp: 12 SpO2: 100 % BP: (!) 190/58 BP MAP: 85 mm Hg BP Device: BP Machine BP Patient Position: Semi fowlers BP Cuff Location: Right arm O2 Device: None (Room air) Nursing notes and vital signs were reviewed. Constitutional: elderly but Well appearing in no acute distress Eyes: Pupils equal and reactive to light, no scleral icterus Mouth: Moist oral mucosa without apparent lesions Neck: Full ROM, no cervical LAD, supple with no meningismus Heart: Bradycardic rate with a regular rhythm, without murmurs, rubs or gallops, normal pulses in all extremities Lungs: Clear to auscultation, no respiratory distress or tachypnea Abdomen: Soft NT/ND, no rebound and no guarding Skin: No overt rashes on exposed skin Extremities: Moving spontaneously, warm and well perfused, no edema, no calf tenderness Neuro: No dysarthria, no aphasia Globally alert and oriented to person, place and time Pupils equal round and reactive, EOM are intact, no nystagmus, peripheral vision is intact CN 2-12 are intact Strength is 5/5 in all major muscles groups of the upper and lower extremities, no pronator drift, Sensation is intact in all extremities and the face Gait is steady, finger to nose and heel to dwyer are normal Psych: No agitation or overt thought disorder Medical Decision Making The patient is a 83 y.o. female, who presents with visual hallucinations intermittently for a few weeks, and nausea today. The hallucinations are subacute in nature, she is aware they are not real and they are not associated other neurologic deficits. Differential is broad and would include LIBRARY CLERICAL ASSISTANT process such as mass/stroke versus medication side effects in particular propranolol or anticholinergiceffects of Dramamine. The patient has no symptoms of infectious etiology or UTI. She has no focal neurologic deficits to suggest stroke though I suppose a pure frontal stroke or mass could cause something like this so i'll get a CT head. I also think we should check electrolytes to rule out hyponatr emia or other electrolyte abnormality. It could be ophthalmologic in nature as she has a history ofmacular degeneration but her vision is now normal, I will recommend follow-up for this. Patient feels much better now and the nausea was likely due to motion sickness which she has a history of she has no symptoms to suggest an intra-abdominal process she has no ACS symptoms.. Her blood pressure ishigh, but I have low clinical suspicion for hypertensive encephalopathy and I watched the blood pressure to see if it comes down on its own. Patient feels at her baseline, the CT was reviewed by me, there are old things including an old calcified frontal lesion that is unchanged from 11 years ago. I think this is unlikely the cause, she has no seizure activity suggest these are seizures in nature and no postictal periods so I have less clinical suspicion for this particularly as the size has not changed over the years. There are old strokes but nothing acute. The patient's electrolytes are normal. I recommended a urine sample, the patient missed the collection device but with the absence of dysuria, or other suggestive symptoms I find this unlikely and she would like to go home with her daughter at this point rather than wait toproduce another sample which is reasonable. The patient has improved and has no symptoms currently is alert oriented on her baseline after greater than 3 hours of observation in the ED I think that she is stable for discharge the patient and her daughter agree. Her blood pressure has improved on its own and is now in the 170s or less I expect it will continue to come down as she leaves the ER. I recommended continued close observation at [facility], return for recurrence, worsening or any other concerning signs or symptoms. I have asked her tostop taking the Dramamine as this could be contributive. I have also recommended ophthalmology follow-up. Prior to discharge discussed with the patient likely diagnosis, expected course, treatment plan, follow-up plan and reasons to return <principal problem not specified> Laboratory Results Labs Reviewed COMPREHENSIVE METABOLIC PANEL (CMP) - Abnormal Result Value Status Sodium 140 Final Potassium 4.5 Final Chloride 104 Final CO2 Total 27 Final Glucose 115 (*) Final BUN 32 (*) Final Creatinine 0.81 Final eGFR 68 Final Total Protein 7.4 Final Albumin 4.3 Final Alkaline Phosphatase 139 (*) Final AST 23 Final ALT 14 Final Bilirubin, Total <0.5 Final Calcium 9.7 Final Calculated Calcium 9.5 Final COMPLETE BLOOD COUNT AND DIFFERENTIAL - Abnormal WBC 8.81 Final RBC 5.03 Final Hemoglobin 14.7 Final HCT 46.3 (*) Final MCV 92 Final MCH 29.2 Final MCHC 31.7 (*) Final RDW-CV 14.6 Final RDW-SD 49.3 Final PLT 182 Final MPV 11.6 Final Neutrophils 69.5 Final Lymphocytes 19.5 Final Monocytes 7.5 Final Eosinophils 2.4 Final Basophils 0.6 Final Immature Grans 0.5 Final Absolute Neutrophils 6.13 Final Absolute Lymphocytes 1.72 Final Absolute Monocytes 0.66 Final Absolute Eosinophils 0.21 Final Absolute Basophils 0.05 Final Absolute Immature Grans 0.04 Final Type of Differential: Auto Final POCT URINE DIPSTICK, CLINITEK ORDER Narrative: The following orders were created for panel order POCT URINE DIPSTICK, CLINITEK ORDER. Procedure Abnormality Status --------- ------ POCT URINE DIPSTICK, CLINITEK[[id number]] POCT CSN BARCODE URINE DIP...[[id number]] Please view results for these tests on the individual orders. POCT CSN BARCODE URINE DIPSTICK POCT URINE DIPSTICK, CLINITEK Data Interpretation An EKG was obtained and independently interpreted: Sinus bradycardia at [address] elevations ordepressions. Normal axis and normal intervals. CT scans reviewed by me and interpreted by the radiologist: No evidence of recent intracranial hemorrhage or acute infarction. Bilateral remote lacunar infarcts. Grossly stable appearance of a peripherally calcified 7 mm lesion along the left frontal calvarium, which may reflect a calcified meningioma. Laboratory results independently reviewed, significant for: HCT of 46.3, glucose of 115, BUN of 32,alkaline phosphate of 139, and MCHC of 31.7. Procedures Procedures ED course A medical screening exam was performed. Patient is hypertensive at 187/107 in triage, vitals otherwise stable. 2037: Patient was administered 4 mg IV Zofran. 2124: Upon reevaluation patient feels improved after the Zofran was administered. She and the daughter were informed that imaging shows prior strokes but nothing of acute concern, strokes were from 10 years prior. Patient was asked to provide a urine sample if possible. A copy of the imaging will be printed out for the patient to bring to her primary physician. She made myself aware that she was able to urinate but missed the collection cup in giving a sample. As there are no symptoms to suggest UTI, I do not feel it necessary that patient have her urine checked tonight as she would like to go home at this time. Patient is stable for discharge. Patient was discharged home with instructions to halt use of Dramamine. Return precautions include weakness, numbness, and visual changes. She is to follow-up with PCP Dr. Moreland. Prior to discharge usual and customary precautions were reviewed with the patient and daughter including follow-up instructions and reasons to return to the Emergency Department if condition worsens, does not improveas expected, or other new concerns arise. Disposition Disposition decisions were made weighing risks and benefits of hospitalization vs. outpatient treatment, the risk for further decompensation, and the patient???s wishes. DISCHARGED The patient's pain was managed to an adequate level weighing risk vs. benefit of further medications. Upon departure from the Emergency Department, the patient's pain appeared to be 0 on a zero to ten scale. Any further pain treatment will be at the discretion of the provider following up with the patient based on their clinical assessment. Condition at departure from the Emergency Department: Improved * Jose Dodson, [place] - 04/25/2019 1801 EST Chief Complaint Patient presents with ??? Altered Mental Status Pt with daughter for worsening confusion and hallucinations x three weeks. No prior hx of similar. Recently switched to different mail order source of propranolol and daughter feels that this may be related. Pt A&O but slow to answer questions, which is unusual for pt. Pt also had single episode of vomiting en route to ER. Denies pain. A&O. Respirations unlabored. Skin warm & dry. NAD. documented in this encounter Plan of Treatment Not on file documented as of this encounter Procedures Procedure Name Priority Date/Time Associated Diagnosis Comments ECG REPORT - SCANNED 05/04/2019 14:07 EST COMPLETE BLOOD COUNT AND DIFFERENTIAL STAT 04/25/2019 19:26 EST COMPREHENSIVE METABOLIC PANEL (CMP) STAT 04/25/2019 19:[address] HEAD WO CONTRAST STAT 04/25/2019 1 8:47 EST EKG 12-LEAD STAT 04/25/2019 18:18 EST documented in this encounter Results * ECG REPORT - SCANNED (05/04/2019 14:07 EST) 05/04/2019 14:0 7 EST Scan 2 Regional Environmental Manager PROCEDURE/MINOR EROS GICAL ORDERABLES * (ABNORMAL) COMPLETE BLOOD COUNT AND DIFFERENTIAL (04/25/2019 19:26 EST) WBC 8.81 4.00 - 12.40 K/cmm 04/25/2019 19:42 EST [facility] RBC 5.03 3.86 - 5.04 M/cmm 04/25/2019 19:42 EST [facility] Hemoglobin 14.7 11.6 - 15.2 gm/dL 04/25/2019 19:42 [facility] HCT 46.3(H) 34.9 - 44.4 % 04/25/2019 19:42 [facility] MCV 92 81 - 98 fl 04/25/2019 19:42 [facility] MCH 29.2 26.7 - 33.3 pg 04/25/2019 19:42 [facility] MCHC 31.7(L) 32.1 - 35.9 gm/dL 04/25/2019 19:42 [facility] RDW-CV 14.6 <14.7 % 04/25/2019 19:42 [facility] RDW-SD 49.3 <50.4 fl 04/25/2019 19:42 [facility] PLT 182 141 - 377 K/cmm 04/25/2019 19:42 [facility] MPV 11.6 9.5 - 12.7 fl 04/25/2019 19:42 [facility] % Neutrophils 69.5 % 04/25/2019 19:42 [facility] % Lymphocytes 19.5 % 04/25/2019 19:42 [facility] % Monocytes 7.5 % 04/25/2019 19:42 [facility] % Eosinophils 2.4 % 04/25/2019 19:42 [facility] % Basophils 0.6 % 04/25/2019 19:42 [facility] % Immature Grans 0.5 % 04/25/20 19 19:42 [facility] Absolute Neutrophils 6.13 2.20 - 8.85 K/cmm 04/25/2019 19:42 [facility] Absolute Lymphocytes 1.72 1.09 - 3.30 K/cmm 04/25/2019 19:42 [facility] Absolute Monocytes 0.66 0.10 - 0.80 K/cmm 04/25/2019 19:42 [facility] Absolute Eosinophils 0.21 0.03 - 0.61 K/cmm 04/25/2019 19:42 [facility] ABS Basophils 0.05 0.01 - 0.11 K/cmm 04/25/2019 19:42 [facility] Absolute Immature Grans 0.04 0.00 - 0.06 K/cmm 04/25/2019 19:42 [facility] Type of Differential: Auto 04/25/2019 19:42 [facility] Blood VENOUS BLOOD / Unknown Venipuncture / Unknown 04/25/2019 19:26 EST 04/25/2019 19:32 EST Kenny Birmingham MD PACKAGES & DNA PROBE ORDERABLES [facility] [address] [place] [address] * (ABNORMAL) COMPREHENSIVE METABOLIC PANEL (CMP) (04/25/2019 19:25 EST) Sodium 140 136 - 145 mEq/L 04/25/2019 19:49 [facility] Potassium 4.5 3.5 - 5.0 mEq/L 04/25/2019 19:49 [facility] Chloride 104 96 - 110 mEq/L 04/25/2019 19:49 [facility] CO2 Total 27 22 - 32 mEq/L 04/25/2019 19:49 [facility] Glucose 115(H) 70 - 100 mg/dL 04/25/2019 19:49 [facility] BUN 32(H) 10 - 26 mg/dL 04/25/2019 19:49 [facility] Creatinine 0.81 0.52 - 1.04 mg/dL 04/25/2019 19:49 [facility] eGFR 68 >60 mL/min/1.7 3m2 04/25/2019 19:49 [facility] Comment:eGFR calculated gia moreno CKD-EPI equation for non- Americans. Multiply eGFR by 1.16 for patients. Total Protein 7.4 6.3 - 8.2 g/dL 04/25/2019 19:49 [facility] Albumin 4.3 3.4 - 4.9 g/dL 04/25/2019 19:49 [facility] Alkaline Phosphatase 139(H) 38 - 126 U/L 04/25/2019 19:49 [facility] AST 23 15 - 46 U/L 04/25/2019 19:49 [facility] ALT 14 <35 U/L 04/25/2019 19:49 [facility] Bilirubin, Total <0.5 <1.4 mg/dL 04/25/20 19 19:49 [facility] Calcium 9.7 8.5 - 10.5 mg/dL 04/25/2019 19:49 [facility] Calculated Calcium 9.5 8.5 - 10.5 mg/dL 04/25/2019 19:49 [facility] Blood VENOUS BLOOD / Unknown Venipuncture / Unknown 04/25/2019 19:25 EST 04/25/2019 19:32 EST Kenny Birmingham MD CHEMISTRY & BLOOD GA S ORDERABLES Performing Organization Address City/State/[facility] Co de Phone Number [facility] [address] [place] [id number] * CT HEAD WO CONTRAST (04/25/2019 18:47 EST) Anatomical Region Laterality Modality Head Computed Tomogra phy 04/26/2019 9:09 EST Impressions 04/26/2019 9:09 EST 1. No evidence of recent intracranial hemorrhage or acute infarction. 2. Bilateral remote lacunar infarcts. 3. Grossly stable appearance of a peripherally calcified 7 mm lesion along the left frontal calvarium, which may reflect a calcified meningioma. 4. Chronic appearing opacification of the right maxillary sinus. I have personally reviewed the images and the above interpretation and agree with the findings. Narrative 04/26/2019 9:09 EST EXAM: CT HEAD WO CONTRAST HISTORY: Altered mental status; Confusion, visual hallucinations ?? TECHNIQUE: CT head without contrast. Structured report code: [id number] COMPARISON: Head CT 07/02/2007 FINDINGS: PARENCHYMA: No evidence of acute infarction. Bilateral lacunar infarcts are present on prior exam. No parenchymal hemorrhage. No other mass, midline shift or herniation. There is focal cerebral volume loss. Patchy periventricular and subcortical white matter hypoattenuation likely reflect sequela from chronic microangiopathic disease. EXTRA-AXIAL SPACES: No extra-axial collection. An approximately 7 x 4 mm peripherally calcified lesion along the left frontal calvarium may be minimally increased in size from prior and may reflect a calcified meningioma. It is too small to characterize well on CT. A small amount of hypoattenuating parenchyma adjacent to the lesion is similar to prior as well. VENTRICULAR SYSTEM: Mild ex vacuo dilatation. No evidence of obstructive hydrocephalus or intraventricular hemorrhage. VESSELS: Limited evaluation without IV contrast. Normal density in the dural venous sinuses. There are extensive calcifications of the intradural vertebral arteries and carotid siphons. BONES: The bones are diffusely demineralized with no suspicious osseous lesions or fractures. Lucencies in the posterior fossa calvarium are unchanged from prior and likely reflect changes from arachnoid granulations or other benign vascular etiology. ORBITS: Left lens replacement otherwise normal. 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 Milder mural thickening is seen in the left frontal sinus, maxillary sinus, ethmoid air cells and sphenoid sinuses. The mastoid air cells are clear. EXTRACRANIAL SOFT TISSUES: Unremarkable. Procedure Note Ben Taylor MD - 04/26/2019 EXAM: CT HEAD WO CONTRAST HISTORY: Altered mental status; Confusion, visual hallucinations TECHNIQUE: CT head without contrast. Structured report code: [id number] COMPARISON: Head CT 07/02/2007 FINDINGS: PARENCHYMA: No evidence of acute infarction. Bilateral lacunar infarcts are present onprior exam. No parenchymal hemorrhage. No other mass, midline shift orherniation. There is focal cerebral volume loss. Patchy periventricularand subcortical white matter hypoattenuation likely reflect sequela fromchronic microangiopathic disease. EXTRA-AXIAL SPACES: No extra-axial collection. An approximately 7 x 4 mm peripherallycalcified lesion along the left frontal calvarium may be minimallyincreased in size from prior and may reflect a calcified meningioma. It istoo small to characterize well on CT. A small amount of hypoattenuatingparenchyma adjacent to the lesion is similar to prior as well. VENTRICULAR SYSTEM: Mild ex vacuo dilatation. No evidence of obstructive hydrocephalus orintraventricular hemorrhage. VESSELS: Limited evaluation without IV contrast. Normal density in the dural venoussinuses. There are extensive calcifications of the intradural vertebralarteries and carotid siphons. BONES: The bones are diffusely demineralized with no suspicious osseous lesionsor fractures. Lucencies in the posterior fossa calvarium are unchangedfrom prior and likely reflect changes from arachnoid granulations or otherbenign vascular etiology. ORBITS: Left lens replacement otherwise normal. PARANASAL SINUSES/MASTOID AIR CELLS: Opacification of the right maxillary sinus with evidence ofosteoneogenesis of the maxillary sinus coulter and chronic erosions of themedial maxillary sinus wall. Milder mural thickening is seen in the leftfrontal sinus, maxillary sinus, ethmoid air cells and sphenoid sinuses.The mastoid air cells are clear. EXTRACRANIAL SOFT TISSUES: Unremarkable. IMPRESSION 1. No evidence of recent intracranial hemorrhage or acute infarction. 2. Bilateral remote lacunar infarcts. 3. Grossly stable appearance of a peripherally calcified 7 mm lesion alongthe left frontal calvarium, which may reflect a calcified meningioma. 4. Chronic appearing opacification of the right maxillary sinus. I have personally reviewed the images and the above interpretation andagree with the findings. Kenny Birmingham MD IMG CT ORDERABLES * EKG 12-LEAD (04/25/2019 18:18 EST) 04/25/2019 18:1 8 EST Narrative [facility] EKG - 05/04/2019 14:02 EST ?[facility] Emergency ? Test Date: ?2019-04-25 Pat Name: ? JOSELO THORNTON ? Department: ?? ED ? Room: ? Gender: ? Female ? Finished Yarn Examiner: ?? [id number] : ?1935 ? Requested By: KELLI Styles Order Number: [id number] ? Reading : ?? PRISCILLA VICENTE MD ? Measurements Intervals ?[place] ? Rate: ? 48 ? P: ?34 CA: ? 184 ?QRS: ?32 QRSD: ? 90 ? T: ?48 QT: ? 455 ? QTc: ?407 ? Interpretive Statements SINUS BRADYCARDIA No previous ECG available for comparison I reviewed the tracing and have either agreed or edited the findings in this report. Electronically Signed On 05-04-2019 14:02:01 EST by PRISCILLA VICENTE MD. Procedure Note Priscilla Vicente MD - 05/04/2019 [facility] Emergency Test Date: 2019-04-25 Pat Name: JOSELO THORNTON Department: ED Room: Gender: Female Finished Yarn Examiner: [id number] : 1935 Requested By: KELLI Styles Order Number: [id number] Reading MD: PRISCILLA VICENTE MD Measurements Intervals [place] Rate: 48 P: 34 CA: 184 QRS: 32 QRSD: 90 T: 48 QT: 455 QTc: 407 Interpretive Statements SINUS BRADYCARDIA No previous ECG available for comparison I reviewed the tracing and have either agreed or edited the findings inthis report. Electronically Signed On 05-04-2019 14:02:01 EST by LEONA KIDD. Salome Hummel MD MPH CARDIAC ECG ORD ERABLES [facility] EKG documented in this encounter Visit Diagnoses Diagnosis Non-intractable vomiting with nausea, unspecified vomiting type- Primary Hallucination Hallucinations documented in this encounter Administered Medications Inactive Administered Medications - up to 3 most recent administrations Medication Order MAR Action Action Date Dose Rate Site ondansetron (PF) (ZOFRAN) injection 4 mg 4 mg, intravenous, NOW X1, 1 dose, On 04/25/19 at 2044, STAT Given 04/25/2019 20:38 EST 4 mg documented in this encounter Active and Recently Administered Medications Times are shown in EST. Scheduled Medication Order 04/23/2019 04/24/2019 04/25/2019 ondansetron (PF) (ZOFRAN) injection 4 mg (COMPLETED) 4 mg, intravenous, NOW X1, 1 dose, On 04/25/19 at 2044, STAT 2037 (Given - Provid er: Danika Marino RN) documented in this encounter Orders Medications Ordered That Naveen ht Not Have Been Administered Count Last Ordered Date First Ordered Date ondansetron (PF) (ZOFRAN) injection 4 mg 1 04/25/2019 documented in this encounter Care Teams Community Living Specialist Relationship Specialty Start Date End Date Camila Moreland MD PCP - General 03/10/15 07/02/20 documented as of this encounter
--- OUTSIDE RECORDS SUMMARY | 2024-02-02 18:27 | XMS_ITS | Encounter Summary ---
Author Organization [facility] Address [address] [place] [address] Care Team Providers Care Nurse Informatics Educator Name Role Phone Unavailable Primary Care Provider Unavailabl e Encounter Details Date Type Department Care Team (Late st Contact Info) Description 07/02/2007 Office Visit [facility] [address] [place] [address] Roderick Graves MD Social History Tobacco Use Types Packs/Day Years Used Date Smoking Tobacco: Never Assessed Sex and Gender Information Value Date Recorded Sex Assigned at Not on file Gender Identity Female 07/03/2020 13:32 EST Sexual Orientation Not on file documented as of this encounter Progress Notes * Blossom Graves MD (Richard) - 06/23/2009 1018 EST Department - Physician Summary Registration Date/Time: 07/02/2007 11:12 Time Seen: 12:57. Arrived- By private vehicle. Historian- patient. HISTORY OF PRESENT ILLNESS Chief Complaint: tremors. This started yesterday and is still present but is better now. At its maximum, severity described as severe. When seen in the E.D., severity described as mild. Modifying factors- worsened by movement. (Pt has had severe tremors and high BP at the same time. No KO or syncope. Feels a little weak. No focal neuro. ). The patient has had similar symptoms once previously. The patient was seen recently at another facility in the emergency department. (twice). REVIEW OF SYSTEMS No fever, sore throat, sinus drainage, cough or difficulty breathing. No chest pain, abdominal pain, nausea, vomiting or difficulty with urination. No abnormal bleeding, vaginal discharge, skin rash,back pain or calf pain. No headache or blackouts. PAST HISTORY [place] Febrile sx as child [place]. No history of hypertension or diabetes mellitus. Medications: The patient's medications have been reviewed. Allergies: The patient's allergies have been reviewed. SOCIAL HISTORY Nonsmoker. ADDITIONAL NOTES The nursing notes have been reviewed. PHYSICAL EXAM Appearance: Alert. No acute distress. mild tremor. Vital Signs: Have been reviewed. Eyes: Pupils equal, round and reactive to light. Eyes normal inspection. ENT: Pharynx normal. Neck: Normal inspection. Neck supple. CVS: Normal heart rate and rhythm. Heart sounds normal. Respiratory: No respiratory distress. Breath sounds normal. Abdomen: Abdomen soft and nontender. Back: Normal inspection. Skin: Normal skin color. Skin warm. Extremities: Extremities exhibit normal ROM. Nolower extremity edema. Neuro: Oriented X 3. No motor deficit. No sensory deficit. LABS, X-RAYS, AND EKG CT Head: No acute disease. Laboratory Tests: (labs reviewed). PROGRESS AND PROCEDURES Discussed case with physician Neurology consult. Disposition: Condition: stable. Discharged home. CLINICAL IMPRESSION Tremors Hypertension. INSTRUCTIONS (Take the HCTZ as planned, once per day. Please see your doctor as soon as you can for follow up. Try taking some lorazepam if the tremor recurrs. Please return any time we can help!). Prescription Medications: Ativan 0.5 mg: take 1 orally every 8 hours. Dispense twenty (20). No refill. (Electronically signed by Blossom Graves M.D. 07/05/2007 20:39) Department - Nursing Summary Registration Date/Time: 07/02/2007 11:12 TRIAGE Initial Assessment Triage time 11:12 Jul 02 2007. --1112 Cherrie Gonzalez R.N. Acuity: LEVEL 4. BP: 164 / 89 (lg adult cuff). HR: 89. RR: 18. Temp: 35.7 C (tympanic). O2 saturation: 100% room air. Alert. --1119 Cherrie Gonzalez R.N.. Medications Hydrochlorothiazide: 25mg daily (taken for 3 days, stopped 2 days ago cause BP nl). (Cinnamon capsules, Vit C, Multivits, Calcium, Magnesium). --1119 Cherrie Gonzalez R.N.. Allergies SULFA DRUGS. (POSSIBLE IODINE). --1119 Cherrie Gonzalez R.N.. History Chief Complaint: (Daughter states pt seen x 3 in [facility] ED in past week for tremors and HTN, EKG nl x2. Told should see neurologist. Referred to ED by Dr Kumar (family friend not LMD) for neuroconsult in ED.). Pain level now: 0/10. (tremors worse at night, generalized weakness, lt neck/shoulder pain). PAST HX: (Guillian [place] 1966, pancreatis/gallbladder attack 1991, seizure, septicemia, essential tremor). SOCIAL HX: Nonsmoker. No alcohol use. No report of abuse. Arrived by private vehicle and accompanied by family. Historian: patient and family. --1119 Cherrie Gonzalez R.N.. NURSING PROGRESS NOTES late entry - 1300. IV started: #1 site, right hand, 22g angiocath, using aseptic technique, with good blood return; one attempt. Saline lock placed; flushed with 5 mL saline. Blood samples drawn by nurse and sent to lab. --1309 Jumana Farfan R.N. late entry - 1305. Patient transported to CT by stretcher. --1310 Jumana Farfan R.N. Patient returned from CT by stretcher. --1339 Jumana Farfan R.N. ED MD Graves at bedside.. --1531 Gm Zayas R.N.. DISPOSITION / DISCHARGE BP: 149 / 59. HR: 67. RR: 14. O2 saturation: 100% room air. IV site discontinued. Condition at departure: improved. Patient reports pain level on departure as 0/10. No learning barriers present. Discharge instructions reviewed with the patient. Reviewed medication side effects, precautions, dosing and course; prescription (s) given to the patient. Reviewed referral to an driver trainer for followup. Patient verbalized understanding. Written instructions provided in Wolof. The patient was discharged home and accompanied by family. The patient left the Emergency Department ambulatory and via private vehicle. Family member driving. --1548 Gm Zayas R.N.. Lynette Comer R.N., R.N. Locked/Released at 07/02/2007 15:49 by Gm Zayas R.N. documented in this encounter Plan of Treatment Not on file documented as of this encounter Visit Diagnoses Not on filedocumented in this encounter
--- OUTSIDE RECORDS SUMMARY | 2024-02-02 18:27 | XMS_ITS | Encounter Summary ---
Author Organization [facility] Address [address] [place] [address] Care Team Providers Care On Site Property Manager Name Role Phone Unavailable Primary Care Provider Unavailabl e Encounter Details Date Type Department Care Team (Late st Contact Info) Description 08/03/2020 Abstract [facility] Adult Primary Care - [address] [address] Patricia Ulloa MD [address] [place] [phone] Social History Tobacco Use Types Packs/Day [...] Diagnoses Not on filedocumented in this encounter Historical Medications * This list may reflect changes made after this encounter. Medication Sig Dispensed Refills Start Date End Date metoprolol SUCCinate (TOPROL-XL) 25 mg tablet Take 25 mg by mouth daily. 07/26/2020 NONFORMULARY 1 Capsule daily. Kidney Support Supplement 08/31/2020 ascorbic acid, vitamin C, (VITAMIN C) 100 mg tablet Take 100 mg by mouth daily. 09/19/2020 lisinopriL (PRINIVIL) 10 mg tablet Take 10 mg by mouth daily. 06/21/2020 12/18/2021 added in this encounter
--- OUTSIDE RECORDS SUMMARY | 2024-02-02 18:27 | XMS_ITS | Encounter Summary ---
Author Organization [facility] Address [address] [place] [address] Care Team Providers Care Hay Farmer Name Role Phone Camila Moreland MD Primary Care Provider [phone] Reason for Visit * Reason Onset Date Comments Patient Outreach 05/21/2018 Encounter Details Date Type Department Care Team (Late st Contact Info) Description 05/21/[address] [facility] Ophthalmology - [address] [phone] Travis Florez MD [address] [facility], [address] [place] [address] Patient Outreach Social History Tobacco Use Types Packs/Day Years [...] encounter Miscellaneous Notes * Telephone Encounter - Solomon Gibbons - 05/21/2018 1506 EST PT called because she does not want to make her August follow up with . Will continue care in [facility] documented in this encounter Plan of Treatment Not on file documented as of this encounter Visit Diagnoses Not on filedocumented in this encounter Care Teams Hay Farmer Relationship Specialty Start Date End Date Camila Moreland MD PCP - General 03/10/15 07/02/20 documented as of this encounter
--- OUTSIDE RECORDS SUMMARY | 2024-02-02 18:27 | XMS_ITS | Encounter Summary ---
Author Organization [facility] Address [address] [place] [address] Care Team Providers Care Cvicu Nurse Name Role Phone Eloina Brewer MOLD FILLER Primary Care Provider [phone] Reason for Referral * Radiology Services (Routine/Next Available) - Authorization Not Required Specialty Diagnoses / Procedures Referred By Kayla t Referred To Contact Diagnoses Solitary pulmonary nodule Procedures CT CHEST WO CONTRAST Alexus Mcintosh MD [address] [place] [phone] [facility] Referral ID Status Reason Start Date Expiration Date Visits Requested Visits Authorized [id number] Authorization Not Required 11/08/2021 1 1 Reason for Visit * Radiology Services (Routine/Next Available) - Authorization Not Required Specialty Diagnoses / Procedures Referred By Kayla goodman Referred To Contact Diagnoses Solitary pulmonary nodule Procedures CT CHEST WO CONTRAST Alexus Mcintosh MD [address] [phone] [facility] Referral ID Status Reason Start Date Expiration Date Visits Requested Visits Authorized [id number] Authorization Not Required 11/08/2021 1 1 Encounter Details Date Type Department Care Team (Latest Contact Info) Description 12/12/2021 11:59 EDT - 12/12/2021 23:59 EDT Hospital Encounter Mitzy Mooney CT [address] [place] [address] Solitary pulmonary nodule Discharge Disposition: Home or [...] Name Priority Date/Time Associated Diagnosis Comments CT CHEST WO CONTRAST Routine 12/12/2021 12:15 EDT Solitary pulmonary nodule documented in this encounter Results * CT CHEST WO CONTRAST (12/12/2021 12:15 EDT) Anatomical Region Laterality Modality Chest Computed Tomogra phy 12/12/2021 12:5 2 EDT Impressions 12/12/2021 12:52 EDT 1. ??3.9 cm in greatest axial diameter primarily solid mass with lobulated and spiculated margin some surrounding groundglass opacity in the lateral basal segment of the left lower lobe of lung with areas of linear scarring or fibrosis extending from the mass to the pleural surface. Findings remain highly concerning for malignancy. A focal masslike area of organizing pneumonia would be an additional but less likely consideration. 2. ??Otherwise stable appearance of the chest compared to the studies of September 2021. Narrative 12/12/2021 12:[address] CHEST WO CONTRAST ??12/12/2021 12:30 PM Clinical History/Comments: Follow up pulmonary nodule size, left lower lobe Technique: CT scan of the chest was performed without contrast material. Thin section reconstructions were performed. Comparison: September 23, 2021. Findings: Lower neck: Normal Mediastinum and caroline (non-vascular): No enlarged mediastinal or hilar lymph nodes. ??The esophagus appears normal. Cardiovascular: ??There is moderate coronary artery atherosclerotic calcification. Lungs and airways: ??The trachea and bronchi are normal. Again noted is a lobulated and spiculated mass within the lateral basal segment of the left lower lobe of lung containing primarily solid elements but also some surrounding groundglass opacity measuring 3.9 cm greatest axial diameter that is essentially unchanged from the comparison studies of September 2021 and PET/CT examination of October 26, 2021. The mass is associated with some linear opacities extending to the lateral and posterior costal pleural surface suggesting some associated fibrosis. Multiple small less than 3 mm diameter nodules are evident bilaterally that are unchanged from the prior examination. There are some linear scarring within the posterior costophrenic sulci bilaterally. Focal reticulation within the medial left lower lobe of lung reflecting some mild interstitial lung abnormalities that are unchanged from prior examination. Pleura: No pleural fluid is evident. There is no pleural thickening noted. Upper abdomen (limited to upper abdomen, not optimized for abdominal imaging): There is a large cyst incompletely evaluated in the right upper abdomen likely extending from the upper pole of the right kidney. Bones and chest wall soft tissues: ??There is a healed left lateral sixth rib fracture. There are healed fractures of the lateral right fifth through seventh ribs. Expected degenerative changes seen within the cervical and thoracic spine. ??There are severe degenerative changes within both glenohumeral joints bilaterally. Procedure Note Bethel Curry MD - 12/12/2021 CT CHEST WO CONTRAST 12/12/2021 12:30 PM Clinical History/Comments: Follow up pulmonary nodule size, left lower lobe Technique: CT scan of the chest was performed without contrast material. Thin sectionreconstructions were performed. Comparison: September 23, 2021. Findings: Lower neck: Normal Mediastinum and caroline (non-vascular): No enlarged mediastinal or hilarlymph nodes. The esophagus appears normal. Cardiovascular: There is moderate coronary artery atheroscleroticcalcification. Lungs and airways: The trachea and bronchi are normal. Again noted is alobulated and spiculated mass within the lateral basal segment of the leftlower lobe of lung containing primarily solid elements but also somesurrounding groundglass opacity measuring 3.9 cm greatest axial diameterthat is essentially unchanged from the comparison studies of September 2021 andPET/CT examination of October 26, 2021. The mass is associated with somelinear opacities extending to the lateral and posterior costal pleuralsurface suggesting some associated fibrosis. Multiple small less than 3 mmdiameter nodules are evident bilaterally that are unchanged from the priorexamination. There are some linear scarring within the posteriorcostophrenic sulci bilaterally. Focal reticulation within the medial leftlower lobe of lung reflecting some mild interstitial lung abnormalitiesthat are unchanged from prior examination. Pleura: No pleural fluid isevident. There is no pleural thickening noted. Upper abdomen (limited to upper abdomen, not optimized for abdominalimaging): There is a large cyst incompletely evaluated in the right upperabdomen likely extending from the upper pole of the right kidney. Bones and chest wall soft tissues: There is a healed left lateral sixthrib fracture. There are healed fractures of the lateral right fifththrough seventh ribs. Expected degenerative changes seen within thecervical and thoracic spine. There are severe degenerative changes withinboth glenohumeral joints bilaterally. IMPRESSION 1. 3.9 cm in greatest axial diameter primarily solid mass with lobulatedand spiculated margin some surrounding groundglass opacity in the lateralbasal segment of the left lower lobe of lung with areas of linear scarringor fibrosis extending from the mass to the pleural surface. Findingsremain highly concerning for malignancy. A focal masslike area oforganizing pneumonia would be an additional but less likelyconsideration. 2. Otherwise stable appearance of the chest compared to the studies ofy 2021. Alexus Mcintosh MD IMG CT ORDERABLES documented in this encounter Visit Diagnoses Diagnosis Solitary pulmonary nodule documented in this encounter Care Teams Cvicu Nurse Relationship Specialty Start Date End Date Eloina Brewer NP [address] [facility] [address] [place] [phone] PCP - General 10/16/20 documented as of this encounter
--- OUTSIDE RECORDS SUMMARY | 2024-02-02 18:27 | XMS_ITS | Encounter Summary ---
Author Organization [facility] Address [address] [place] [address] Care Team Providers Care Clothing Examiner Name Role Phone Eloina Brewer MICRO PHOTOGRAPHER Primary Care Provider [phone] Reason for Visit * (Routine/Next Available) - Receiving Office to Obtain Authorization Specialty Diagnoses / Procedures Referred By Kayla goodman Referred To Contact Procedures CT OUTSIDE IMAGES CHEST Unknown, Provider, Referral ID Status Reason Start Date Expiration Date Visits Requested Visits Authorized [id number] Receiving Office to Obtain Authorization 09/26/2021 1 1 Encounter Details Date Type Department Care Team (Latest Contact Info) Description 09/23/2021 - 09/23/2021 23:59 EDT Hospital Encounter [facility] Secondary [place] Discharge Disposition: Home or Self Care Social [...] Name Priority Date/Time Associated Diagnosis Comments CT OUTSIDE IMAGES CHEST Routine 09/26/2021 14:49 EDT documented in this encounter Results * CT OUTSIDE IMAGES CHEST (09/26/2021 14:49 EDT) Narrative 09/26/2021 14:49 EDT This is a non-reportable exam. Provider Unknown MD [facility] OTHER IMAGING OR DERABLES documented in this encounter Visit Diagnoses Not on filedocumented in this encounter Care Teams Clothing Examiner Relationship Specialty Start Date End Date Eloina Brewer NP [address] [place] [address] [address] [place] [phone] PCP - General 10/16/20 documented as of this encounter
--- OUTSIDE RECORDS SUMMARY | 2024-02-02 18:27 | XMS_ITS | Encounter Summary ---
Author Organization [facility] Address [address] [place] [address] Care Team Providers Care Branch Manager Trainee Name Role Phone Patricia Redmond MD Primary Care Provider Reason for Visit * Reason Onset Date Comments Hypertension 09/21/2020 Encounter Details Date Type Department Care Team (Late st Contact Info) Description 09/21/2020 Telephone [facility] Adult Primary Care - [address] [phone] Patricia Redmond MD [address] [place] [phone] Hypertension Social History Tobacco Use Types [...] encounter Miscellaneous Notes * Telephone Encounter - Shelly Matos RN - 09/27/2020 1156 EDT 09/27/20 11:54 Meredith Arndt's daughter, advised of Dr Redmond's plan from today at 10:55. Verbalized understanding. No questions or concerns expressed. * Telephone Encounter - Patricia Redmond MD - 09/27/2020 1055 EDT Please advise these look ok for now. Continue to monitor. No new meds at this time. Patricia Redmond MD * Telephone Encounter - Kezia Naranjo RN - 09/26/2020 1618 EDT 09/26@ 16:18 Meredith Arndt's daughter states, her blood pressure readings are: 09/01 161/80 05/01 129/59 05/02 108/53 05/03 177/75 05/05 168/80 05/08 116/79 09/25 138/75 She did not check the pulse * Telephone Encounter - Patricia Redmond MD - 09/26/2020 1608 EDT Thank you. I think daughter and patient have been tracking BP. Would you mind calling them to get home log? (This can be done tomorrow 09/27/20). Patricia Redmond * Telephone Encounter - Kezia Naranjo RN - 09/26/2020 1451 EDT Images from the original note were not included. BP reading at last visit on 09/21 was 200/100 repeated after 1 minute of rest 188/100. Telephone call was placed at that time to the [place] office to report readings. Next scheduled visit 09/28. Sincerely, Belinda Lai publication specialist [phone] Belinda Lai, RN Kezia Naranjo, [place] ?The only other recording is on 09/14 140/70 * Telephone Encounter - Kezia Naranjo RN - 09/26/2020 1129 EDT 09/26 @ 11:29 affiliate message sent to [facility] hosp[facility] requesting recent blood pressure readings. * Telephone Encounter - Patricia Redmond MD - 09/26/2020 1050 EDT Can you see what patient recent BP have been? Patricia Redmond * Telephone Encounter - Abby Cordova - 09/21/2020 1052 EDT 200/100 upon arrival of caller for home PT Pt had taken her morning medications After 5-10 min it was 188/100 Pt feeling fine - asymptomatic documented in this encounter Plan of Treatment Not on file documented as of this encounter Visit Diagnoses Not on filedocumented in this encounter Care Teams Branch Manager Trainee Relationship Specialty Start Date End Date Patricia Redmond MD PCP - General Geriatric Medicine 08/31/20 10/15/20 documented as of this encounter
--- OUTSIDE RECORDS SUMMARY | 2024-02-02 18:27 | XMS_ITS | Encounter Summary ---
Author Organization [facility] Address [address] [place] [address] Care Team Providers Care Pv Design And Installation Technician Name Role Phone Eloina Brewer PHARMACY CLINICAL SPECIALIST Primary Care Provider [phone] Encounter Details Date Type Department Care Team (Late st Contact Info) Description 09/26/2021 Orders Only [facility] Radiology - Main [place] [address] [place], [place] [id number] Lupis Mcclendon MD [address] [place] [address] Social History Tobacco Use Types Packs/Day Years [...] on filedocumented in this encounter Care Teams Pv Design And Installation Technician Relationship Specialty Start Date End Date Eloina Brewer NP [address] [facility] [address] [place] [phone] PCP - General 10/16/20 documented as of this encounter
--- OUTSIDE RECORDS SUMMARY | 2024-02-02 18:27 | XMS_ITS | Encounter Summary ---
Author Organization [facility] Address [address] [place] [address] Care Team Providers Care Hot Worker Name Role Phone Patricia Ulloa MD Primary Care Provider Reason for Visit * Reason Onset Date Comments Appointment Related 09/13/2020 Encounter Details Date Type Department Care Team (Late st Contact Info) Description 09/13/2020 Telephone [facility] Adult Primary Care - [address] [address] Patricia Ulloa MD [address] [place] [phone] Appointment Related Social History Tobacco Use Types Packs/Day Years [...] encounter Miscellaneous Notes * Telephone Encounter - Patricia Ulloa MD - 09/19/2020 0829 EDT Completed. * Telephone Encounter - Abby Cordova - 09/13/2020 1538 EDT [facility] asking for 08/31/20 NPV note to be completed so they can review it & begin a SOC on patient documented in this encounter Plan of Treatment Not on file documented as of this encounter Visit Diagnoses Not on filedocumented in this encounter Care Teams Hot Worker Relationship Specialty Start Date End Date Patricia Ulloa MD PCP - General Geriatric Medicine 08/31/20 10/15/20 documented as of this encounter
[2024-02-02 19:39] LABS: Bilirubin Negative (Negative); Blood Negative (Negative); Clarity Clear (Clear); Glucose Negative (Negative); Ketones Negative (Negative); Leukocyte Esterase Negative (Negative); Nitrite Negative (Negative); Urobilinogen 0.2 mg/dL (Up to 0.2)
== END 2024-02-02 18:23 | disposition home or self-care (01) ==
LOC: LBN 18:22
PROVIDERS: PCP Legal Medicine; Visit Provider Nurse Practitioner Gerontology
DX: N39.0 Urinary tract infection, site not specified (principal)
CPT/HCPCS: 81003; 87086

== ENCOUNTER 2024-05-19 18:39 | Outpatient (REF) | payer MEDICARE, MEDICAID, SELFPAY ==
[2024-05-19 17:47] LABS: Abs Immature Grans 0.03 10^3/uL (0.0-0.06); Absolute Basophil Count 0.02 10^3/uL (0.0-0.2); Absolute Lymphocyte Count 1.48 10^3/uL (1.2-3.4); Absolute Monocyte Count 0.34 10^3/uL (0.1-0.8); Basophils % 0.3 %; Eosinophils % 1.4 %; HCT 39.6 % (36.0-46.0); HGB 12.6 g/dL (11.2-15.7); Immature Grans % 0.4 %; Lymphocytes % 20.4 %; MCH 29.6 pg (27.0-33.0); MCHC 31.8 % (32.0-36.0); MCV 93 fL (80-95); MPV 12.1 fL (8.0-11.0); Monocytes % 4.7 %; Neutrophils % 72.8 %; Platelet Count 138 10^3/uL (130-400); RBC 4.26 10^6/uL (3.93-5.22); RDW 16.1 % (11.7-14.6); RDW-SD 54.8 fL; WBC 7.27 10^3/uL (4.4-10.8)
[2024-05-19 17:53] LABS: Bilirubin Negative (Negative); Blood Negative (Negative); Clarity Clear (Clear); Glucose Negative (Negative); Ketones Negative (Negative); Leukocyte Esterase Trace (Negative); Nitrite Negative (Negative); Urobilinogen 0.2 mg/dL (Up to 0.2); pH 5.5 (5-8)
--- OUTSIDE RECORDS SUMMARY | 2024-05-19 18:41 | XMS_ITS | Encounter Summary ---
Author Organization [facility] Address [address] [place] [address] Care Team Providers Care Jewelry Estimator Name Role Phone Eloina Brewer MULTIFOCAL BUTTON INSPECTOR Primary Care Provider +1 [phone] Encounter Details Date Type Department Care Team (Late st Contact Info) Description 01/17/2022 Documentation Visit [facility] Hematology & Oncology - [address] [phone] Ruben Pradhan, RN Social History Tobacco Use Types Packs/Day Years Used Date Smoking Tobacco: Never Smokeless Tobacco: Never PHQ-2 Answer Date Recorded PHQ-2 SUBTOTAL 0 08/31/2020 Interpersonal Safety Answer Date Record ed Physically Hurt Never 08/31/2020 Verbally Threaten Never 08/31/2020 Comments Unknown Sex and Gender Information Value Date Recorded Sex Assigned at Not on file Legal Sex Female 18:42 EST Gender Identity Female 07/03/2020 13:32 EST Sexual Orientation Not on file documented as of this encounter Functional Status * Are you deaf or do you have serious difficulty hearing? Answer Date of Assessment Author No 12/18/2021 12:03 Stephy Jeffries, RN * Are you blind or do you have serious difficulty seeing, even when wearing glasses? Answer Date of Assessment Author Yes 12/18/2021 12:03 Stephy Jeffries, RN * Because of a physical, mental, or emotional condition, does this person have difficulty doing errands alone such as visiting a doctor's office or shopping? Answer Date of Assessment Author No 12/03/2017 13:52 EDT Wimble, Mar y, RN documented as of this encounter Mental Status * Because of a physical, mental, or emotional condition, does this person have serious difficulty concentrating, remembering, or making decisions? Answer Entry Date Author No 12/03/2017 13:52 EDT Stephy Feliciano RN documented in this encounter Progress Notes * Ruben Pradhan RN - 01/17/2022 1020 EDT POA/ daughter [...] on filedocumented in this encounter Care Teams Jewelry Estimator Relationship Specialty Start Date End Date Eloina Brewer NP [address] [place] [address] [address] [place] [phone] PCP - General 10/16/20 documented as of this encounter
--- OUTSIDE RECORDS SUMMARY | 2024-05-19 18:41 | XMS_ITS | Encounter Summary ---
Author Organization [facility] Address [address] [place] [address] Care Team Providers Care Manager Of Human Resources Name Role Phone Eloina Brewer VACUUM DRIER TENDER Primary Care Provider [phone] Encounter Details Date Type Department Care Team (Latest Contact Info) Description 10/02/2021 11:00 EDT Phlebotomy Only [facility] Laboratory Services - [facility] [address] [place] [phone] Hyperpotassemia (Primary Dx) Social History Tobacco Use [...] as of this encounter Functional Status * Because of a physical, mental, or emotional condition, does this person have difficulty doing errands alone such as visiting a doctor's office or shopping? Answer Date of Assessment Author No 12/03/2017 13:52 EDT documented as of this encounter Mental Status * Because of a physical, mental, or emotional condition, does this person have serious difficulty concentrating, remembering, or making decisions? Answer Entry Date Author No 12/03/2017 13:52 EDT documented in this encounter Plan of Treatment Not on file documented as of this encounter Procedures Procedure Name Priority Date/Time Associated Diagnosis Comments BASIC METABOLIC PANEL (BMP) Routine 10/02/2021 11:10 EDT Hyperpotassemia documented in this encounter Results * (ABNORMAL) BASIC METABOLIC PANEL (BMP) (10/02/2021 11:10 EDT) Sodium 139 136 - 145 mmol/L 10/02/2021 12:45 EDT [facility] Potassium 4.7 3.5 - 5.0 mmol/L 10/02/2021 12:45 T [facility] Chloride 101 96 - 110 mmol/L 10/02/2021 12:45 T [facility] CO2 Total 29 22 - 32 mmol/L 10/02/2021 12:45 [facility] Anion Gap 9 5 - 14 10/02/2021 12:45 [facility] Glucose 99 70 - 100 mg/dL 10/02/2021 12:45 [facility] Calcium 9.3 8.5 - 10.5 mg/dL 10/02/2021 12:45 [facility] BUN 40(H) 10 - 26 mg/dL 10/02/2021 12:45 [facility] Creatinine 1.31(H) 0.52 - 1.04 mg/dL 10/02/2021 12:45 [facility] eGFR 40(L) >60 mL/min/1.73 m2 10/02/2021 12:45 [facility] Blood VENOUS BLOOD / Unknown Venipuncture / Unknown 10/02/2021 11:10 EDT 10/02/2021 11:10 EDT us Eloina Brewer NP CHEMISTRY & BLOOD GAS ORDER G[place] Final Result [facility] [address] [place] [address] documented in this encounter Visit Diagnoses Diagnosis Hyperpotassemia- Primary documented in this encounter Care Teams Manager Of Human Resources Relationship Specialty Start Date End Date Eloina Brewer NP [address] [place] [address] PCP - General 10/16/20 documented as of this encounter
--- OUTSIDE RECORDS SUMMARY | 2024-05-19 18:41 | XMS_ITS | Encounter Summary ---
Author Organization [facility] Address [address] [place] [address] Care Team Providers Care Coke Wheeler Name Role Phone Eloina Brewer ANIMAL LABORATORY TECHNICIAN Primary Care Provider +[phone] Encounter Details Date Type Department Care Team (Late st Contact Info) Description 11/04/2022 Lab Requisition [facility] Pathology & Laboratory Medicine - [address] [address] Outr Resulting Lab, Provider Social History Tobacco [...] of Assessment Author No 12/18/2021 12:03 Stephy Jeffries RN * Are you blind or do you have serious difficulty seeing, even when wearing glasses? Answer Date of Assessment Author Yes 12/18/2021 12:03 Stephy Jeffries RN * Because of a physical, mental, or emotional condition, does this person have difficulty doing errands alone such as visiting a doctor's office or shopping? Answer Date of Assessment Author No 12/03/2017 13:52 EDT Stephy Feliciano, RN documented as of this encounter Mental Status * Because of a physical, mental, or emotional condition, does this person have serious difficulty concentrating, remembering, or making decisions? Answer Entry Date Author No 12/03/2017 13:52 EDT Stephy Feliciano, RN documented in this encounter Plan of Treatment Not on file documented as of this encounter Procedures Procedure Name Priority Date/Time Associated Diagnosis Comments LEGIONELLA ANTIGEN DETECTION, URINE Routine 11/04/2022 3:00 EDT documented in this encounter Results * LEGIONELLA ANTIGEN DETECTION, URINE (11/04/2022 3:00 EDT) Legionella Antigen Detection Negative Negative 11/04/2022 22:[address] [facility] Urine URINE / Unknown 11/04/2022 3 :00 EDT 11/04/2022 16:53 EDT us Provider Outr Resulting Lab MICROBIOLOGY - GENER AL ORDERABLES Final Result [facility] [address] [place] [address] documented in this encounter Visit Diagnoses Not on filedocumented in this encounter Care Teams Coke Wheeler Relationship Specialty Start Date End Date Eloina Brewer NP [address] [place] [address] PCP - General 10/16/20 documented as of this encounter
--- OUTSIDE RECORDS SUMMARY | 2024-05-19 18:41 | XMS_ITS | Encounter Summary ---
Author Organization [facility] Address [address] [place] [address] Care Team Providers Care River Boat Captain Name Role Phone Eloina Brewer MINE UTILITY OPERATOR Primary Care Provider +[phone] Reason for Visit * Reason Comments Dementia [...] Expiration Date Visits Re quested Visits Authorized [id number] 1 1 Encounter Details Date Type Department Care Team (Late st Contact Info) Description 12/15/2021 14:28 EDT - 12/15/2021 20:15 EDT Emergency [facility] Emergency Department - [facility] [address] [place], [place] [address] Alo Martinez, PA-C [address] [facility] [place] [address] Dementia associated with other underlying [...] EDT documented in this encounter Functional Status * Because of [...] 12/03/2017 13:52 EDT documented in this encounter Discharge Instructions * Discharge Instructions* Alo Martinez PA-C - 12/15/2021 19:15 EDT Recommend taking Seroquel 50 mg at night and you may use once during the day as needed. financial services officer is working on a plan for housing assistance documented in this encounter Medications at Time of Discharge metoprolol SUCCinate (TOPROL-XL) 25 mg tablet Take [...] of this encounter Ordered Prescriptions Prescription Sig Dispense Quantity Refills Last Filled Start Date End Date QUEtiapine (SEROQUEL) 25 mg tablet Take 2 Tablets by mouth 2 times daily. 30 Tablet 12/15/2021 documented in this encounter Discharge Disposition Disposition Code Departure Means Destination Home or Self Senior Care documented in this encounter Progress Notes * Agatha Kumar - 12/15/2021 191 EDT [facility] Note Met with patient and her daughter, [...] to work with provider Eloina Brewer in [facility] which has been tough given distance. She also confirms that as such, she is not connected with a care professional through a local PC and has not had any support in seeking a [place] [facility] [place] care bed at a SNF. I did [...] cn discuss with LOS Martinez. --Agatha Kumar FRONT DESK COORDINATOR oncology social work documented in this encounter ED Notes * Treasure Watkins RN - 12/15/20212014 EDT Pt daughter [...] tearful. * Alo Martinez PA-C - 12/15/2021 7762 EDT Images from the original note were [...] hoping to get her mother into a usp. She does have an appointment coming up with aging well, social and political studies professor was involved with this case and spent a large amount of time with both patient and daughter at this time beinga Friday night it would be impossible to get her into a usp social and political studies professor will stay involved with her. The daughter [...] since September. They have been looking for usp placement though the patient does not want [...] 6.96 1.61 0.56 Collection Time Result Time AAEOS ABAS AIGRAN DTYP 12/15/21 15:17:00 12/15/21 15:30:50 0.02 0.05 [...] Abnormality Status --------- ------ POCT URINE DIPSTICK, CLI...[[id number]] Abnormal Final result POCT CSN BARCODE URINE D...[[id number]] Final result Please view results for these [...] and independently interpreted. Procedures Procedures * Rowena Fowler, [place] - 12/15/2021 1450 EDT Pt daughter brings [...] in tears when discussing mother's situation with entry writer. She states that she just cannot take care of her mother any more and she has done everything she possibly can for her, yet she just keeps declining. Pt is calm and cooperative with entry writer though is argumentative with her daughter. She tells entry writer that the daughter is the problem. [...] 15:18 EDT) Hold Hold 12/15/2021 16:30 EDT [facility] Blood VENOUS BLOOD / Unknown Venipuncture / Unknown 12/15/2021 15:18 EDT 12/15/2021 15:21 EDT us Alo Martinez PA-C LAB INFO SERVICE AND SUPPORT & PHONE RESULT Final Result Performing Organization Address [facility]/ZIP Co de Phone Number [facility] [address] [place] [address] * HOLD BLUE TOP (12/15/2021 15:18 EDT) Hold Hold 12/15/2021 16:30 EDT [facility] Blood VENOUS BLOOD / Unknown Venipuncture / Unknown 12/15/2021 15:18 EDT 12/15/2021 15:21 EDT Alo Martinez PA-C LAB INFO SERVICE AND SUPPORT & PHONE RESULT Final Result Performing Organization Address City/[facility]/ZIP Co de Phone Number [facility] [address] [place] [address] * (ABNORMAL) COMPREHENSIVE METABOLIC PANEL (CMP) (12/15/2021 15:18 EDT) Sodium 142 136 - 145 mmol/L 12/15/2021 15:53 EDT [facility] Potassium 4.5 3.5 - 5.0 mmol/L 12/15/2021 15:53 EDT [facility] Chloride 102 96 - 110 mmol/L 12/15/2021 15:53 EDT [facility] CO2 Total 23 22 - 32 mmol/L 12/15/2021 15:53 EDT [facility] Glucose 111(H) 70 - 100 mg/dL 12/15/2021 15:53 [facility] BUN 22 10 - 26 mg/dL 12/15/2021 15:53 [facility] Creatinine 1.20(H) 0.52 - 1.04 mg/dL 12/15/2021 15:53 [facility] eGFR 44(L) >60 mL/min/1.7 3m2 12/15/2021 15:53 [facility] Total Protein 7.3 6.3 - 8.2 g/dL 12/15/2021 15:53 [facility] Albumin 4.2 3.4 - 4.9 g/dL 12/15/2021 15:53 [facility] Alkaline Phosphatase 96 38 - 126 U/L 12/15/2021 15:53 [facility] AST 21 15 - 46 U/L 12/15/2021 15:53 [facility] ALT 9 <35 U/L 12/15/2021 15:53 [facility] Bilirubin, Total 0.5 <1.4 mg/dL 12/16/19 15:53 [facility] Calcium 9.4 8.5 - 10.5 mg/dL 12/15/2021 15:53 [facility] Albumin/Globulin Ratio 1.4 1.0 - 2.5 12/15/2021 15:53 [facility] Anion Gap 17(H) 5 - 14 12/15/2021 15:53 [facility] Blood VENOUS BLOOD / Unknown Venipuncture / Unknown 12/15/2021 15:18 EDT 12/15/2021 15:21 EDT us Alo Martinez PA-C CHEMISTRY & BLOOD GAS ORDERAB LES Final Result [facility] [address] [place] [address] * POCT CSN BARCODE URINE DIPSTICK (12/15/2021 15:17 EDT) Urine URINE SPECIMEN COLLECTION, CLEAN CATCH / Unknown Urine Collect / Unknown 12/15/2021 15:17 EDT 12/15/2021 15:17 EDT us Alo Martinez PA-C LAB INFO SERVICE AND SUPPORT & PHONE RESULT Final Result [facility] [address] [place] [address] * (ABNORMAL) COMPLETE BLOOD COUNT AND DIFFERENTIAL (12/15/2021 15:17 EDT) WBC 9.27 4.00 - 12.40 K/cmm 12/15/2021 15:30 [facility] RBC 4.42 3.86 - 5.04 M/cmm 12/15/2021 15:30 [facility] Hemoglobin 13.2 11.6 - 15.2 gm/dL 12/15/2021 15:30 [facility] HCT 39.3 34.9 - 44.4 % 12/15/2021 15:30 [facility] MCV 89 81 - 98 fl 12/15/2021 15:30 [facility] MCH 29.9 26.7 - 33.3 pg 12/15/2021 15:30 [facility] MCHC 33.6 32.1 - 35.9 gm/dL 12/15/2021 15:30 [facility] RDW-CV 14.2 <14.7 % 12/15/2021 15:30 [facility] RDW-SD 45.7 <50.4 fl 12/15/2021 15:30 [facility] PLT 219 141 - 377 K/cmm 12/15/2021 15:30 [facility] MPV 11.0 9.5 - 12.7 fl 12/15/2021 15:30 [facility] % Neutrophils 75.1 % 12/15/2021 15:30 [facility] % Lymphocytes 17.4 % 12/15/2021 15:30 [facility] % Monocytes 6.0 % 12/15/2021 15:30 T [facility] % Eosinophils 0.2 % 12/15/2021 15:30 [facility] % Basophils 0.5 % 12/15/2021 15:30 [facility] % Immature Grans 0.8 % 12/16/19 15:30 [facility] Absolute Neutrophils 6.96 2.20 - 8.85 K/cmm 12/15/2021 15:30 [facility] Absolute Lymphocytes 1.61 1.09 - 3.30 K/cmm 12/15/2021 15:30 [facility] Absolute Monocytes 0.56 0.10 - 0.80 K/cmm 12/15/2021 15:30 [facility] Absolute Eosinophils 0.02(L) 0.03 - 0.61 K/cmm 12/15/2021 15:30 [facility] ABS Basophils 0.05 0.01 - 0.11 K/cmm 12/15/2021 15:30 [facility] Absolute Immature Grans 0.07(H) 0.00 - 0.06 K/cmm 12/15/2021 15:30 [facility] Type of Differential: Auto 12/15/2021 15:30 [facility] Blood VENOUS BLOOD / Unknown Venipuncture / Unknown 12/15/2021 15:17 EDT 12/15/2021 15:21 EDT us Alo Martinez PA-C PACKAGES & DNA PROBE ORDERABL ES Final Result [facility] [address] [place] [address] * (ABNORMAL) POCT URINE DIPSTICK, CLINITEK (12/15/2021 15:01 EDT) Color, UA Yellow Yellow 12/15/2021 15:03 [facility] Clarity, UA Clear Clear 12/15/2021 15:03 EDT [facility] Glucose, UA Negative Negative 12/15/2021 15:03 [facility] Bilirubin, UA Negative Negative 12/15/2021 15:03 [facility] Ketones, UA 1+(A) Negative 12/15/2021 15:03 [facility] Specific [place], Urine 1.020 1.001 - 1.035 12/15/2021 15:03 [facility] Blood, UA Negative Negative 12/15/2021 15:03 [facility] pH, UA 5.5 4.6 - 8.0 12/15/2021 15:03 [facility] Protein, UA Negative Negative 12/15/2021 15:03 [facility] Urobilinogen, UA 0.2 0.2 - 1.0 mg/dL 12/15/2021 15:03 [facility] Nitrite, UA Negative Negative 12/15/2021 15:03 [facility] Leuk Esterase Trace(A) Negative 12/15/2021 15:03 [facility] HN LAB COMMENT (CLINITEK, UR) Test performed at Emergency Department 12/15/2021 15:03 [facility] Urine URINE SPECIMEN COLLECTION, CLEAN CATCH / Unknown 12/15/2021 15:01 EDT 12/15/2021 15:03 EDT Alo Martinez PA-C POINT OF CARE TEST ORDERABLES Final Result [facility] [address] [place] [address] documented in this encounter Visit Diagnoses Diagnosis Dementia associated with other underlying disease with behavioral disturbance ([facility])- Primary Primary hypertension Unspecified essential hypertension documented [...] at 1915, Until 12/15/21 at 1944, STAT 1943 (Given - Provid er: Treasure Watkins RN) documented in this encounter Care Teams River Boat Captain Relationship Specialty Start Date End Date Eloina Brewer NP [address] [place] [address] [address] [place] [phone] PCP - General 10/16/20 documented as of this encounter
--- OUTSIDE RECORDS SUMMARY | 2024-05-19 18:41 | XMS_ITS | Encounter Summary ---
Author Organization [facility] Address [address] [place] [address] Care Team Providers Care Grade And Center Marker Name Role Phone Eloina Brewer IMPORT/EXPORT AGENT Primary Care Provider +[phone] Reason for Visit * (Routine/Next Available) - Receiving Office to Obtain Authorization Specialty Diagnoses / Procedures Referred By Kayla goodman Referred To Contact Procedures CT OUTSIDE IMAGES CHEST Manisha Pardo MD Referral ID Status Reason Start Date Expiration Date Visits Requested Visits Authorized [id number] Receiving Office to Obtain Authorization 09/26/2021 1 1 Encounter Details Date Type Department Care Team (Latest Contact Info) Description 09/23/2021 - 09/23/2021 23:59 EDT Hospital Encounter [facility] Secondary Reads [place] Discharge Disposition: Home [...] 12/03/2017 13:52 EDT documented in this encounter Medications at Time [...] 14:49 EDT This is a non-reportable exam. us Manisha Dietz MD IMG OTHER IMAGING ORD ERABLES Final Result documented in this encounter Visit Diagnoses Not on filedocumented in this encounter Care Teams Grade And Center Marker Relationship Specialty Start Date End Date Eloina Brewer NP [address] [place] [address] [address] [place] [address] PCP - General 10/16/20 documented as of this encounter
--- OUTSIDE RECORDS SUMMARY | 2024-05-19 18:41 | XMS_ITS | Encounter Summary ---
Author Organization [facility] Address [address] [place] [address] Care Team Providers Care Neurology Director Name Role Phone Eloina Brewer CARGO SERVICES COORDINATOR Primary Care Provider +[phone] Encounter Details Date Type Department Care Team [...] on filedocumented in this encounter Care Teams Neurology Director Relationship Specialty Start Date End Date Eloina Brewer NP [address] [facility] [address] [place] [phone] PCP - General 10/16/20 documented as of this encounter
--- OUTSIDE RECORDS SUMMARY | 2024-05-19 18:41 | XMS_ITS | Encounter Summary ---
Author Organization [facility] Address [address] [place] [address] Care Team Providers Care Play Back Operator Name Role Phone Eloina Brewer MEDICAL RECORDS AUDITOR Primary Care Provider [phone] Encounter Details Date Type Department Care Team (Late st Contact Info) Description 09/22/2021 Lab Requisition [facility] Pathology & Laboratory Medicine - [address] [address] Outr Resulting Lab, Provider Social History Tobacco [...] Procedure Name Priority Date/Time Associated Diagnosis Comments JJD-19 TEST [facility] PCR Today 09/22/2021 20:05 EDT COVID-19 TESTING Routine 09/22/2021 20:0 5 EDT documented in this encounter Results * COVID-19 TEST [facility] PCR (09/22/2021 20:05 EDT) Swab 09/22/2021 20:0 5 EDT 09/23/2021 16:27 EDT us Provider Outr Resulting Lab MICROBIOLOGY - GENER AL ORDERABLES Final Result [facility] [address] [place] [address] * COVID-19 TESTING (09/22/2021 20:05 EDT) COVID-19 rt-PCR Result Negative Negative 09/24/2021 12:15 EDT [facility] Comment: This test has [...] performed using the elizabeth SARS-CoV-2 assay ([employer] on the Elizabeth 6800 System Performing Lab Elizabeth 6800 [facility] 09/24/2021 12:15 EDT [facility] Swab 09/22/2021 20:0 5 EDT 09/23/2021 16:27 EDT us Provider Outr Resulting Lab MICROBIOLOGY - GENER AL ORDERABLES Final Result [facility] [address] [place] [address] documented in this encounter Visit Diagnoses Not on filedocumented in this encounter Care Teams Play Back Operator Relationship Specialty Start Date End Date Eloina Brewer NP [address] [place] [phone] PCP - General 10/16/20 documented as of this encounter
--- OUTSIDE RECORDS SUMMARY | 2024-05-19 18:41 | XMS_ITS | Encounter Summary ---
Author Organization [facility] Address [address] [place] [address] Care Team Providers Care Implementation Coordinator Name Role Phone Patricia Ulloa MD Primary Care Provider Encounter Details Date Type Department Care Team (Latest Contact Info) Description 10/10/2020 Documentation Visit [facility] Adult Primary Care - [address] [id number] Patricia Ulloa MD [address] [place] [address] Hypertension, unspecified type; Amnesia; Tremor; [...] 12/03/2017 13:52 EDT documented in this encounter Progress Notes * Abby Cordova - 10/10/2020 1153 EDT AGENCY: [facility] POC CERTIFICATION PERIOD: 09.06.20-11.04.20 DATE SIGNED: 09.20.20 CPT CODE: G0180 DX: i10 R41. R25.1 R53.1 E03.9 Scanned for reference documented in this encounter Plan of Treatment Not on file documented as of this encounter Visit Diagnoses Diagnosis Hypertension, unspecified type Amnesia Memory loss Tremor Abnormal involuntary movements Weakness generalized Other malaise and fatigue Primary hypothyroidism Unspecified hypothyroidism documented in this encounter Care Teams Implementation Coordinator Relationship Specialty Start Date End Date Patricia Ulloa MD PCP - General Geriatric Medicine 08/31/20 10/15/20 documented as of this encounter
--- OUTSIDE RECORDS SUMMARY | 2024-05-19 18:41 | XMS_ITS | Encounter Summary ---
Author Organization [facility] Address [address] [place] [address] Care Team Providers Care Spinning Bath Patroller Name Role Phone Eloina Brewer NP Primary Care Provider [phone] Patricia Nails MD Primary Care Provider Reason for Visit * Reason Onset Date Comments Hypertension 10/05/2020 Encounter Details Date Type Department Care Team (Late st Contact Info) Description 10/05/2020 Telephone [facility] Adult Primary Care - [address] [address] Patricia Nails MD [address] [place] [phone] Hypertension Social History Tobacco Use Types [...] 12/03/2017 13:52 EDT documented in this encounter Miscellaneous Notes * Telephone Encounter - Isela Alvarez RN - 10/16/2020 1219 EDT Outgoing call to patient. Spoke with her daughter Yris. Patient has moved back to [place]. She has an appointment there and will be receiving care from [facility]. They will follow up and make sure that records from here are sent Update sent to PCP. ISELA AVLAREZ RN * Telephone Encounter - Kezia Naranjo [...] message sent to [facility] health [facility] hosp[facility] with Dr. nails's plan from today [...] on filedocumented in this encounter Care Teams Spinning Bath Patroller Relationship Specialty Start Date End Date Eloina Brewer NP [address] [place] [phone] PCP - General 10/16/20 Patricia Nails MD [address] [place] [phone] PCP - General Geriatric Medicine 08/31/20 10/15/20 documented as of this encounter
--- OUTSIDE RECORDS SUMMARY | 2024-05-19 18:41 | XMS_ITS | Encounter Summary ---
Author Organization [facility] Address [address] [place] [address] Care Team Providers Care Hardware Assembler Name Role Phone Eloina Brewer NP Primary Care Provider [phone] Reason for Referral * Radiology Services (Routine/Next Available) - Authorization Not Required Specialty Diagnoses / Procedures Referred By Kayla goodman Referred To Contact Nuclear Medicine Diagnoses Solitary pulmonary nodule Procedures PET CT EYE TO THIGH Eloina Brewer NP [address] [place] [address] Phone: tel: fax: [facility] Referral ID Status Reason Start Date Expiration Date Visits Requested Visits Authorized [id number] Authorization Not Required 09/26/2021 1 1 Reason for Visit * Radiology Services (Routine/Next Available) - Authorization Not Required Specialty Diagnoses / Procedures Referred By Kayla goodman Referred To Contact Nuclear Medicine Diagnoses Solitary pulmonary nodule Procedures PET CT EYE TO THIGH Eloina Brewer NP [address] [place] [address] Phone: tel: fax: [facility] Referral ID Status Reason Start Date Expiration Date Visits Requested Visits Authorized [id number] Authorization Not Required 09/26/2021 1 1 Encounter Details Date Type Department Care Team (Latest Contact Info) Description 10/26/2021 13:20 EDT - 10/26/2021 23:59 EDT Hospital Encounter [facility] Radiology Nuclear [place] [address] Solitary pulmonary nodule Discharge Disposition: Home or [...] the IV injection of 9.3 mCi of [id number], 3D TOF PET imaging was obtained from the skull base to upper thighs using a [employer] digital ??PET/CT system. ??The blood glucose level [...] following the IV injection of 9.3 mCi pbX70-xoegpaucqdgthqlvew, 3D TOF PET imaging was obtained from the skullbase to upper thighs using a [employer] digital PET/CT system. Theblood glucose level prior [...] the above interpretation andagree with the findings. us Eloina Brewer NP IMG NM ORDERABLES Final Res ult * POCT GLUCOSE, INTERFACED (10/26/2021 13:53 EDT) Glucose, POC 91 70 - 100 mg/dL 10/29/2021 7:34 EDT [facility] HN LAB POC COMMENT (GLUCOSE) Test Performed by Nursing Services 10/29/2021 7:34 EDT [facility] Blood CAPILLARY BLOOD / Unknown 10/26/2021 13:53 EDT 10/29/2021 7:34 EDT us Manishaaleksandr Dietz MD POINT OF CARE TEST OR DERABLES Final Result [facility] [address] [place] [address] documented in this encounter Visit Diagnoses Diagnosis [...] 10/26/2021 documented in this encounter Care Teams Hardware Assembler Relationship Specialty Start Date End Date Eloina Brewer NP [facility] [address] [place] [address] PCP - General 10/16/20 documented as of this encounter
--- OUTSIDE RECORDS SUMMARY | 2024-05-19 18:41 | XMS_ITS | Encounter Summary ---
Author Organization [facility] Address [address] [place] [address] Care Team Providers Care Vat House Laborer Name Role Phone Eloina Brewer FARMWORKER [employer] Primary Care Provider [phone] Encounter Details Date Type Department Care Team [...] on filedocumented in this encounter Care Teams Vat House Laborer Relationship Specialty Start Date End Date Eloina Brewer NP [address] [facility] [address] [place] [phone] PCP - General 10/16/20 documented as of this encounter
--- OUTSIDE RECORDS SUMMARY | 2024-05-19 18:41 | XMS_ITS | Encounter Summary ---
Author Organization [facility] Address [address] [place] [address] Care Team Providers Care Testing Engineer Name Role Phone Eloina Brewer GAS PLANT DISPATCHER Primary Care Provider [phone] Encounter Details Date Type Department Care Team (Latest Contact Info) Description 03/26/2021 10:00 EST Phlebotomy Only [facility] Laboratory Services - [address] [phone] Pre-diabetes; Hypertension, essential Social History Tobacco Use [...] 0.47 - 4.68 ??IU/mL 03/26/2021 12:06 EST [facility] Blood VENOUS BLOOD / Unknown Venipuncture / Unknown 03/26/2021 10:07 EST 03/26/2021 10:08 EST Narrative [facility] - 03/26/2021 12:06 EST The results of this assay can be falsely lowered due to the consumption of Biotin. VirallyEloina L Auramist GAS PLANT DISPATCHER CHEMISTRY & BLOOD GAS ORDER GORDON Final Result [facility] [address] [place] [address] * (ABNORMAL) HEMOGLOBIN A1C (03/26/2021 10:07 EST) Hemoglobin A1c 5.9(H) <5.7 % 03/26/2021 13:39 [facility] Comment: Glycemic Status References: Normal: ??<5.7% Pre-Diabetes: ??5.7% - 6.4% Diagnostic of Diabetes: ??> or = 6.5% (if confirmed) Est Avg Glucose 123 mg/dL 13:39 EST [facility] Comment:The eAG represents t he A1c result expressed as average glucose in mg/dL. Blood VENOUS BLOOD / Unknown Venipuncture / Unknown 03/26/2021 10:07 EST 03/26/2021 10:08 EST VirallyEloina L Auramist GAS PLANT DISPATCHER CHEMISTRY & BLOOD GAS ORDER GORDON Final Result [facility] [address] [place] [address] documented in this encounter Visit Diagnoses Diagnosis Pre-diabetes Other abnormal glucose Hypertension, essential Unspecified essential hypertension documented in this encounter Care Teams Testing Engineer Relationship Specialty Start Date End Date Eloina Brewer NP [address] [place] [phone] PCP - General 10/16/20 documented as of this encounter
--- OUTSIDE RECORDS SUMMARY | 2024-05-19 18:41 | XMS_ITS | Referral Summary ---
Author Organization [facility] Address [address] [place] [address] Care Team Providers Care Partition Notcher Name Role Phone Eloina Brewer BRICK SETTER OPERATOR Primary Care Provider Allergies Active Allergy Reactions Criticality Noted Date Comments Amlodipine Swelling of tongue 11/16/2021 Sulfa (Sulfonamide Antibiotics) Hives 05/2017 Medications metoprolol SUCCinate (TOPROL-XL) 25 mg tablet Take [...] original. Patient has given permission for [facility] to verbally discuss the following information [...] Index 26.63 12/17/2021 1708 EDT Functional Status * Are you deaf or do you have serious difficulty hearing? Answer Date of Assessment Author No 12/18/2021 12:03 EDT Stephy Feliciano RN * Are you blind or do you have serious difficulty seeing, even when wearing glasses? Answer Date of Assessment Author Yes 12/18/2021 12:03 EDT Stephy Feliciano RN * Because of a physical, mental, or emotional condition, does this person have difficulty doing errands alone such as visiting a doctor's office or shopping? Answer Date of Assessment Author No 12/03/2017 13:52 EDT Wimble, Mar y, RN Mental Status * Because of a physical, mental, or emotional condition, does this person have serious difficulty concentrating, remembering, or making decisions? 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 Default/Not Discussed Care Teams Partition Notcher Relationship Specialty Start Date End Date Eloina Brewer NP [address] [place] [phone] PCP - General 10/16/20
--- OUTSIDE RECORDS SUMMARY | 2024-05-19 18:41 | XMS_ITS | Encounter Summary ---
Author Organization [facility] Address [address] [place] [address] Care Team Providers Care Arc Welder Name Role Phone Eloina Brewer NUCLEAR EQUIPMENT SALES ENGINEER Primary Care Provider [phone] Reason for Referral * Radiology Services (Routine/Next Available) - Authorization Not Required Specialty Diagnoses / Procedures Referred By Contac t Referred To Contact Diagnoses Solitary pulmonary nodule Procedures CT CHEST WO CONTRAST Alexus Mcintosh MD Phone: tel: fax: [facility] Referral ID Status Reason Start Date Expiration Date Visits Requested Visits Authorized [id number] Authorization Not Required 11/08/2021 1 1 Reason for Visit * Radiology Services (Routine/Next Available) - Authorization Not Required Specialty Diagnoses / Procedures Referred By Kayla goodman Referred To Contact Diagnoses Solitary pulmonary nodule Procedures CT CHEST WO CONTRAST Alexus Mcintosh MD Phone: tel: fax: [facility] Referral ID Status Reason Start Date Expiration Date Visits Requested Visits Authorized [id number] Authorization Not Required 11/08/2021 1 1 Encounter Details Date Type Department Care Team (Latest Contact Info) Description 12/12/2021 11:59 EDT - 12/12/2021 23:59 EDT Hospital Encounter [facility]zy Mooney [facility] [address] [place], [place] [phone] Solitary pulmonary nodule Discharge Disposition: Home or [...] of the chest compared to the studies ofMay 2021. Alexus Mcintosh MD IMG CT ORDERABLES Final Resu lt documented in this encounter Visit Diagnoses Diagnosis Solitary pulmonary nodule documented in this encounter Care Teams Arc Welder Relationship Specialty Start Date End Date Eloina Brewer NP [address] [place], [place] [address] [address] [place] [phone] PCP - General 10/16/20 documented as of this encounter
--- OUTSIDE RECORDS SUMMARY | 2024-05-19 18:41 | XMS_ITS | Encounter Summary ---
Author Organization [facility] Address [address] [place] [address] Care Team Providers Care Manager Of Exhibitions And Collections Name Role Phone Eloina Brewer SENIOR TECHNICAL SUPPORT ANALYST Primary Care Provider [phone] Encounter Details Date Type Department Care Team (Late st Contact Info) Description 09/26/2021 Orders Only [facility] Radiology - Main [place] [address] [place], [place] [phone] Lupis Mcclendon MD [address] [place] [address] Social History Tobacco Use Types [...] on filedocumented in this encounter Care Teams Manager Of Exhibitions And Collections Relationship Specialty Start Date End Date Eloina Brewer NP [address] [place] [address] PCP - General 10/16/20 documented as of this encounter
--- OUTSIDE RECORDS SUMMARY | 2024-05-19 18:41 | XMS_ITS | Encounter Summary ---
Author Organization [facility] Address [address] [place] [address] Care Team Providers Care Planning Specialist Name Role Phone Eloina Brewer SUPERVISOR SMOKE CONTROL Primary Care Provider Encounter Details Date Type [...] on filedocumented in this encounter Care Teams Planning Specialist Relationship Specialty Start Date End Date Eloina Brewer NP [address] [facility] [address] [place] [phone] PCP - General 10/16/20 documented as of this encounter
--- OUTSIDE RECORDS SUMMARY | 2024-05-19 18:41 | XMS_ITS | Encounter Summary ---
Author Organization [facility] Address [address] [place] [address] Care Team Providers Care Area Director Of Home Health Sales Name Role Phone Eloina Brewer BANKRUPTCY LAW SPECIALIST Primary Care Provider Reason for Visit * Reason Comments Constipation several days since l ast BM. Pt lives with daughter and is vague historian. asked daughter for laxitative several days ago. Per daughter does not drink enough fluids. Pt states nausea after eating. Encounter Details Date Type Department Care Team (Late st Contact Info) Description 11/16/2021 12:31 EDT - 11/16/2021 14:32 EDT Emergency [facility] Emergency Department - Main [address] [id number] Jakob Larios PA-C [address] [facility] [address] [place] [address] Constipation, unspecified constipation type (Primary Dx) [...] 134(L) 136 - 145 mmol/L 11/16/2021 13:50 [facility] Potassium 3.9 3.5 - 5.0 mmol/L 11/16/2021 13:50 [facility] Chloride 99 96 - 110 mmol/L 11/16/2021 13:50 [facility] CO2 Total 28 22 - 32 mmol/L 11/16/2021 13:50 [facility] Anion Gap 7 5 - 14 11/16/2021 13:50 [facility] Glucose 117(H) 70 - 100 mg/dL 11/16/2021 13:50 [facility] Calcium 8.5 8.5 - 10.5 mg/dL 11/16/2021 13:50 [facility] BUN 55(H) 10 - 26 mg/dL 11/16/2021 13:50 [facility] Creatinine 1.64(H) 0.52 - 1.04 mg/dL 11/16/2021 13:50 [facility] eGFR 31(L) >60 mL/min/1.73 m2 11/16/2021 13:50 [facility] Blood VENOUS BLOOD / Unknown Venipuncture / Unknown 11/16/2021 13:28 EDT 11/16/2021 13:33 EDT Jakob Larios PA-C CHEMISTRY & BLOOD GAS ORDERABLES Final Result [facility] [address] [place] [address] * (ABNORMAL) COMPLETE BLOOD COUNT AND DIFFERENTIAL (11/16/2021 13:27 EDT) WBC 6.68 4.00 - 12.40 K/cmm 11/16/2021 13:45 [facility] RBC 5.04 3.86 - 5.04 M/cmm 11/16/2021 13:45 [facility] Hemoglobin 14.8 11.6 - 15.2 gm/dL 11/16/2021 13:45 [facility] HCT 44.4 34.9 - 44.4 % 11/16/2021 13:45 [facility] MCV 88 81 - 98 fl 11/16/2021 13:45 [facility] MCH 29.4 26.7 - 33.3 pg 11/16/2021 13:45 [facility] MCHC 33.3 32.1 - 35.9 gm/dL 11/16/2021 13:45 [facility] RDW-CV 13.5 <14.7 % 11/16/2021 13:45 [facility] RDW-SD 43.7 <50.4 fl 11/16/2021 13:45 [facility] PLT 142 141 - 377 K/cmm 11/16/2021 13:45 [facility] MPV 11.9 9.5 - 12.7 fl 11/16/2021 13:45 [facility] % Neutrophils 71.7 % 11/16/2021 13:45 [facility] % Lymphocytes 16.2 % 11/16/2021 13:45 [facility] % Monocytes 11.1 % 11/16/2021 13:45 [facility] % Eosinophils 0.1 % 11/16/2021 13:45 [facility] % Basophils 0.3 % 11/16/2021 13:45 [facility] % Immature Grans 0.6 % 11/17/19 13:45 [facility] Absolute Neutrophils 4.79 2.20 - 8.85 K/cmm 11/16/2021 13:45 [facility] Absolute Lymphocytes 1.08(L) 1.09 - 3.30 K/cmm 11/16/2021 13:45 [facility] Absolute Monocytes 0.74 0.10 - 0.80 K/cmm 11/16/2021 13:45 [facility] Absolute Eosinophils 0.01(L) 0.03 - 0.61 K/cmm 11/16/2021 13:45 [facility] ABS Basophils 0.02 0.01 - 0.11 K/cmm 11/16/2021 13:45 EDT [facility] Absolute Immature Grans 0.04 0.00 - 0.06 K/cmm 11/16/2021 13:45 EDT [facility] Type of Differential: Auto 11/16/2021 13:45 EDT [facility] Blood VENOUS BLOOD / Unknown Venipuncture / Unknown 11/16/2021 13:27 EDT 11/16/2021 13:33 EDT Jakob Larios PA-C PACKAGES & DNA PROBE O RDERABLES Final Result [facility] [address] [place] [address] documented in this encounter Visit Diagnoses Diagnosis [...] 11/16/2021 documented in this encounter Care Teams Area Director Of Home Health Sales Relationship Specialty Start Date End Date Eloina Brewer NP [address] [place] [address] [address] [place] [address] PCP - General 10/16/20 documented as of this encounter
--- OUTSIDE RECORDS SUMMARY | 2024-05-19 18:41 | XMS_ITS | Encounter Summary ---
Author Organization [facility] Address [address] [place] [address] Care Team Providers Care Lap Machine Tender Name Role Phone Eloina Brewer BEREAVEMENT PROGRAM COORDINATOR Primary Care Provider Encounter Details Date Type Department Care Team (Latest Contact Info) Description 12/12/2021 10:30 EDT Phlebotomy Only [facility] Laboratory Services - [facility] ([facility] [address] [place] [phone] Hypertension (Primary Dx) Social History Tobacco Use [...] 136 - 145 mmol/L 12/12/2021 12:48 EDT [facility] Potassium 4.2 3.5 - 5.0 mmol/L 12/12/2021 12:48 T [facility] Chloride 105 96 - 110 mmol/L 12/12/2021 12:48 T [facility] CO2 Total 21(L) 22 - 32 mmol/L 12/12/2021 12:48 T [facility] Anion Gap 17(H) 5 - 14 12/12/2021 12:48 [facility] Glucose 112(H) 70 - 100 mg/dL 12/12/2021 12:48 [facility] Calcium 9.0 8.5 - 10.5 mg/dL 12/12/2021 12:48 [facility] BUN 21 10 - 26 mg/dL 12/12/2021 12:48 [facility] Creatinine 1.16(H) 0.52 - 1.04 mg/dL 12/12/2021 12:48 [facility] eGFR 46(L) >60 mL/min/1.73 m2 12/12/2021 12:48 [facility] Blood VENOUS BLOOD / Unknown Venipuncture / Unknown 12/12/2021 10:40 EDT 12/12/2021 10:41 EDT us Arleth Sylvester MD CHEMISTRY & BLOOD GAS O RDERABLES Final Result [facility] [address] [place] [address] documented in this encounter Visit Diagnoses Diagnosis Hypertension- Primary Unspecified essential hypertension documented in this encounter Care Teams Lap Machine Tender Relationship Specialty Start Date End Date Eloina Brewer NP [address] [place] [phone] PCP - General 10/16/20 documented as of this encounter
--- OUTSIDE RECORDS SUMMARY | 2024-05-19 18:41 | XMS_ITS | Encounter Summary ---
Author Organization [facility] Address [address] [place] [address] Care Team Providers Care Lead Tank Mechanic Name Role Phone DaniellaTomasEloina L PERCUSSION TEACHER Primary Care Provider [phone] Reason for Visit * Reason Comments Altered [...] Expiration Date Visits Re quested Visits Authorized [id number] 1 1 Encounter Details Date Type Department Care Team (Late st Contact Info) Description 12/17/2021 17:12 EDT - 12/18/2021 17:58 EDT Hospital Encounter [facility] General Medicine Unit [address] [place], [place] [id number] Sylvester Medeiros MD Doyle-Burr, Caleb J, MD [address] [phone] Sarah Prater MD MPH [address] [facility], Level 1 [place] [id number] Dante Huerta MD [address] [place] [address] Riley Perera MD [address] [facility], [facility] 1 [place] [address] Dementia with behavioral disturbance, unspecified dementia type (HCC-CMS) (HCC) (Primary Dx) Discharge Disposition: Nursing Facility (Fdc Care Bed) Social History Tobacco Use Types [...] documented in this encounter Functional Status * Are you deaf or do you have serious difficulty hearing? Answer Date of Assessment Author No 12/18/2021 12:03 EDT Stephy Feliciano, RN * Are you blind or do you have serious difficulty seeing, even when wearing glasses? Answer Date of Assessment Author Yes 12/18/2021 12:03 EDT Stephy Feliciano, RN * Because of a physical, mental, [...] 13:52 EDT documented in this encounter Discharge Summaries * Kristen Gasca MD - 12/18/2021 1640 EDT HOSPITAL MEDICINE DISCHARGE SUMMARY Primary Care Provider: Eloina Brewer Attending Physician: Dante Huerta MD Admit Date: 12/17/21 Discharge Date: 12/18/2021 Disposition (location): [facility] Condition at Discharge: Stable Reason for Admission (chief complaint): Agitation, hallucinations Principal/Final Diagnosis: Dementia with behavioral disturbance, unspecified dementia type (HCC-CMS) ([facility]) Additional Problems Managed in the Hospital: Active Hospital Problems Diagnosis Date Noted ??? *Dementia with behavioral disturbance, unspecified dementia type (HCC-CMS) ([facility]) 12/18/2021 ??? Agitation 12/17/2021 ??? Constipation 09/19/2020 ??? Hypertension 09/19/2020 ??? Hypothyroidism 09/19/2020 ??? Personal history of fall 09/19/2020 Resolved Hospital Problems No resolved problems to display. Transition of care: [facility] Transition of Care report automatically routed to PCP office on discharge.Additional handoff communication performed via: [employer] Staff Message - DC summ and note sent to Dr. Antoine (with whom pt is establishing care on 01/02). Clinical Issues Needing Follow-up 1. Pertinent medication changes: - Continued on home metoprolol 25mg daily, levothyroxine 25mcg daily, quetiapine 50mg BID 2. Recommended follow-up tests/procedures needed: - Follow up with Dr. Antoine on 01/02 - Recommend continuing attempts to obtain records from prior PCP ([facility]) - Would obtain formal cognitive assessment (MOCA, etc) or recent records - Pursue additional testing for lung mass pending GOC, capacity evaluation. 3. Anticoagulation on discharge: No 4. Changes to goals of care at time of discharge (if applicable): None, remains FULL CODE. Hospital Course: Meredith Thornton??is a 86 y.o.??female??with a PMHx significant for HTN, hypothyroidism, cognitive impairment, CKDIII (BL 1.1-1.2), and history of falls, who presented to [facility] on 12/17 with with??progressively worsening??agitation and altered [...] was mentally stable and after discussions with , patient's family opted to transition her to [...] Office Visit Medium with Margret Antoine MD [facility] [place] ([facility]) [address] [facility] [address] Plan discussed at length with Dr. Kush Huerta, FMS team, and patient. KRISTEN GASCA MD 12/18/2021 16:50 FM PGY3, [id number] Cosigned by Dante Huerta MD at 12/19/2021 7:18 EDT Associated attestation - Dante Huerta MD - 12/19/2021 0718 EDT I saw and evaluated the patient for discharge. I agree with the resident's/fellow's note. I personally spent less than 30 minutes in discharging services for this patient. Dante Huerta MD documented in this encounter Medications at Time of Discharge levothyroxine (SYNTHROID) 25 mcg tablet Take 25 [...] Disposition Code Departure Means Destination Nursing Facility (Sales Recru[facility] Care Bed) documented in this encounter Progress Notes * Samantha Stewart RN - 12/18/2021 1758 EDT Nursing Discharge Note D: Patient noted with discharge orders to: [facility]. A: Prescriptions e-scripted. Reviewed discharge instructions and prescriptions with Patient and Other IV d/c'd. Belongings collected and sent home with patient. Report called to Omyara at [facility]. R: DaughterYris, verbalized understanding of discharge instructions and denied further questions. SAMANTHA STEWART RN 12/18/2021 18:09 * Stephany Ma - 12/18/2021 1630 EDT Call from Pt daughter. They have found a bed at [facility]-adult family home. They would like to come tonite at 6pm to pick her up . MD aware and plan to DC to go with family. They will transport to her adult home. Advised to put applications in for NHP . They are working on LTC medicaid. Stephany Ma [facility] #[id number] * Nichole Spain RN - 12/18/2021 1431 [...] LDA for any identified wounds ??? Add Burna image for any suspected PI ??? Order [...] Mom on the list for memorycare (? [place]) but was on a 5 year wait list. She states she has been in touch with [facility] -Private camino dealing with dementia patients and she will call them again today to see if pt canhouse there until she goes to OR. She is requesting placement at this time. I reviewed choices and fact that we would need to rapidly expand search from the hospital. She does understand that. I alsoreviewed the fact that pt may soon become chcf care and that medicare may no longer pay for hospital. She does understand. CM will follow Stephany Ma,RNCCM #[id number] * Kristen Gasca MD - 12/18/2021 0606 [...] ago - hit head. Startedhallucinating 2y ago [place] - had very high BP, none specifically [...] 225 NEUTROABS 6.96 6.09 BMP: Recent Labs 12/15/21 15112/17/212056 NA 142 140 K 4.5 4.1 CL 102 102 CO2 23 20* BUN 22 21 CREATININE 1.20* 1.22* CALCIUM 9.4 9.6 LABALBU 4.2 4.1 LFT: Recent Labs 12/15/21 1518 12/17/212056 TBIL 0.5 0.8 ALKPHOS 96 96 AST [...] of cognitive impairment #Hx of falls - VARNISHER Seroquel 50 mg BID - Delirium + [...] discovered in the spring when admitted in [facility], prompting PET scan. - Unclear at this time if patient would like to pursue further work-up. Query MOCA, will need formal capacity evaluation. Daughter at this time (HCP) recognizes that patient is FULL CODE, though alsoendorses statements like just kill me now. May warrant palliative involvement for further elucidation of GOC in the future. ?? Chronic/resolved issues: #HTN: VARNISHER metoprolol 25 mg #CKDIII: baseline 1.1-1.2, though limited data in last year. Trend daily, avoid nephrotoxins #Hypothyroidism: VARNISHER Levothyroxine 25 mcg, TSH therapeutic #Chronic constipation: VARNISHER senna and miralax PRN Diet: geriatric diet Activity: up with assistance VTE Prophylaxis: Seqential Compression Device Code status: FULL, discussed on admission and confirmed with daughter Discharge Plan: uncertain - return home with support vs LTC Consults: Nutrition; PT/OT; Geratrics Plan discussed at length with Dr. Kush Huerta, FMS team, and patient. KRISTEN GASCA MD 12/18/2021 12:29 FM PGY3, [id number] Cosigned by Dante Huerta MD at 12/18/2021 13:15 EDT Associated attestation - Dante Huerta MD - 12/18/2021 1315 EDT Attestation: I saw and evaluated the patient on 12/18/21. I agree with the findings and plan of care as documented in the resident's note. Any changes are in underline. Kush Huerta MD 12/18/21 13:14 * Uli Barrow [facility] - 12/17/2021 2014 EDT SW consult due to Meredith becoming [...] working with [employer] to apply for [facility] and there are no finances for caregivers or NH level of care at this time. At this time family is adamant they cannot care for Meredith at home. It does seem that Meredith's behavior is very difficult to manage and unsafe in private home. [facility] documented in this encounter H&P Notes * Surya Gaitan MD - 12/17/2021 0676 EDT Medicine Admission History & Physical Service [...] any visual. She notes she is in [place] and its December 2021. She knowns she [...] possible lung lesions component via mets/paraneoplastic - VARNISHER Seroquel 50 mg BID - s/p Olanzapine 7.5 mg in ED - CT H/Cervical pending - Delirium + Fall precautions - TSH, B12, Folate pending - PT/OT pending - Nutrition c/s #Lung lesion: 3.9 cm lobulated/spiculated 12/12 CT scan; - Not discussed with patient/family will need further discussion in AM but apparently aware per notes from ED visit Chronic/resolved issues: #HTN: VARNISHER lisinopril + Metoprolol 25 mg #CKDIII: baseline [...] MD Internal Medicine PGY-3, #1299 12/17/21 23:27 Cosigned by Memo Charles MD at 12/18/2021 4:02 EDT Associated attestation - Memo Charles MD - [...] follow up with PCP who presents to [facility] with increasing agitated behaviors and delusions. No [...] in this encounter ED Notes * Yuni Sahu, RN - 12/18/2021 1055 EDT Pt increasingly [...] in lowest position, patient in view of smelter charger and nursing unit coordinator. * Sarah Prater MD MPH - 12/18/2021 0008 EDT This patient received an evaluation and medical screening exam for emergent medical conditions at the [facility] on 12/18/2021. This documentation is recorded [...] with behavioral disturbance, unspecified dementia type (HCC-CMS) ([facility]) * Tanisha Alcala - 12/17/2021 2332 EDT [...] the patient had an acute mental status currency exchange specialist the past several days to a week [...] a visitor, reported not thinking clearly. This Drill Sergeant performeda FAST-Exam on the patient, which was negative. Patient reported not feeling safe due to own thinking. Patient preferred to talk further in private setting - custodial services manager aware. documented in this encounter Miscellaneous Notes [...] above interpretation andagree with the findings. us Kristen Gasca MD IM CT ORDERABLES Final Result * CT CERVICAL SPINE WO CONTRAST (12/18/2021 [...] above interpretation andagree with the findings. us Kristen Gasca MD IMG CT ORDERABLES Final Result * COVID-19 TEST [facility] PCR (12/17/2021 23:38 EDT) Swab BOTH ANTERIOR NARES / Unknown Swab / Unknown 12/17/2021 23:38 EDT 12/17/2021 23:40 EDT Avni Torres MD MICROBIOLOGY - NERAL ORDERABLES Final Result [facility] [address] [place] [address] * COVID-19 TESTING (12/17/2021 23:38 EDT) COVID-19 rt-PCR Result Negative Negative 12/18/2021 1:02 EDT [facility] Comment: This test has [...] history, and epidemiological information. Performed on the [employer] GeneXpert Instrument Performing Lab GeneXpert [facility] 12/18/2021 1:02 EDT [facility] Swab BOTH ANTERIOR NARES / Unknown Swab / Unknown 12/17/2021 23:38 EDT 12/17/2021 23:40 EDT Avni Torres MD MICROBIOLOGY - NERTN ORDERABLES Final Result [facility] [address] [place] [address] * (ABNORMAL) URINE CHEMICAL (DIP) & SEDIMENT (MICRO) WITH REFLEX TO CULTURE (12/17/2021 22:20 EDT) Color UA Colorless Colorless, Yellow 12/17/2021 22:32 EDT [facility] Clarity UA Clear Clear 12/17/2021 22:32 EDT [facility] Glucose UA Negative Negative 12/17/2021 22:32 EDT [facility] Bilirubin UA Negative Negative 12/17/2021 22:32 [facility] Ketones UA 1+(A) Negative 12/17/2021 22:32 [facility] Specific [place], Urine 1.004 1.001 - 1.035 12/17/2021 22:32 [facility] Blood UA Negative Negative 12/17/2021 22:32 [facility] Urobilinogen UA Normal Normal mg/dL 022 22:32 [facility] Nitrite UA Negative Negative 12/17/2021 22:32 [facility] Leukocyte Esterase UA Negative Negative 12/17/2021 22:32 [facility] Protein UA Negative Negative 12/17/2021 22:32 [facility] pH, UA 6.0 4.6 - 8.0 12/17/2021 22:32 [facility] Urine RBC Count, Auto 0 - 2 0 - 2 Cells/HPF 12/17/2021 22:32 [facility] Urine WBC Count, Auto 0 - 3 0 - 3 Cells/HPF 12/17/2021 22:32 [facility] Urine Squamous Count, Auto Few(A) None Seen Cells/HPF 12/17/2021 22:32 [facility] Urine Hyaline Cast Count, Auto <=10 <=10 Casts/LPF 12/17/2021 22:32 [facility] Urine Bacteria Count, Auto None Seen None Seen Bacteria/HPF 12/17/2021 22:32 [facility] Urine URINE SPECIMEN COLLECTION, CLEAN CATCH / Unknown Urine Collect / Unknown 12/17/2021 22:20 EDT 12/17/2021 22:[address] [facility] - 12/17/2021 22:32 [facility] NOTE: Reflex to Urine Culture test is not indicated based on Urine Sediment Analysis results. Urine Sediment Analysis results are unreliable on urines that are unrefrigerated for >2 hrs or refrigerated >8 hrs. us Avni Torres MD URINALYSIS ORDERA BLES Final Result [facility] [address] [place] [address] * (ABNORMAL) COMPLETE BLOOD COUNT AND DIFFERENTIAL (12/17/2021 20:58 EDT) WBC 9.22 4.00 - 12.40 K/cmm 12/17/2021 21:23 [facility] RBC 4.42 3.86 - 5.04 M/cmm 12/17/2021 21:23 [facility] Hemoglobin 13.1 11.6 - 15.2 gm/dL 12/17/2021 21:23 [facility] HCT 38.5 34.9 - 44.4 % 12/17/2021 21:23 [facility] MCV 87 81 - 98 fl 12/17/2021 21:23 [facility] MCH 29.6 26.7 - 33.3 pg 12/17/2021 21:23 [facility] MCHC 34.0 32.1 - 35.9 gm/dL 12/17/2021 21:23 [facility] RDW-CV 14.0 <14.7 % 12/17/2021 21:23 [facility] RDW-SD 44.7 <50.4 fl 12/17/2021 21:23 [facility] PLT 225 141 - 377 K/cmm 12/17/2021 21:23 [facility] MPV 11.5 9.5 - 12.7 fl 12/17/2021 21:23 [facility] % Neutrophils 65.9 % 12/17/2021 21:23 [facility] % Lymphocytes 24.1 % 12/17/2021 21:23 [facility] % Monocytes 7.4 % 12/17/2021 21:23 [facility] % Eosinophils 0.9 % 12/17/2021 21:23 [facility] % Basophils 0.8 % 12/17/2021 21:23 [facility] % Immature Grans 0.9 % 12/18/19 21:23 [facility] Absolute Neutrophils 6.09 2.20 - 8.85 K/cmm 12/17/2021 21:23 [facility] Absolute Lymphocytes 2.22 1.09 - 3.30 K/cmm 12/17/2021 21:23 [facility] Absolute Monocytes 0.68 0.10 - 0.80 K/cmm 12/17/2021 21:23 [facility] Absolute Eosinophils 0.08 0.03 - 0.61 K/cmm 12/17/2021 21:23 [facility] ABS Basophils 0.07 0.01 - 0.11 K/cmm 12/17/2021 21:23 [facility] Absolute Immature Grans 0.08(H) 0.00 - 0.06 K/cmm 12/17/2021 21:23 [facility] Type of Differential: Auto 12/17/2021 21:23 [facility] Blood VENOUS BLOOD / Unknown Venipuncture / Unknown 12/17/2021 20:58 EDT 12/17/2021 21:13 EDT Avni Torres MD PACKAGES & DNA GA OBE ORDERABLES Final Result [facility] [address] [place] [address] * FOLATE (12/17/2021 20:57 EDT) Folate 7.1 See Note ng/mL 12/18/2021 8:57 T [facility] Comment: Reference Ranges for Folate: Deficient: ?< 3.4 ng/mL Indeterminate: ??3.4 - 5.4 ng/mL Normal: ? > 5.4 ng/mL The results of this assay can be falsely elevated due to the consumption of Biotin. Blood VENOUS BLOOD / Unknown Venipuncture / Unknown 12/17/2021 20:57 EDT 12/17/2021 21:17 EDT Surya Gaitan MD CHEMISTRY & BLOOD GAS ORDER [place] Final Result Performing Organization Address City/[facility]/ZIP Co de Phone Number [facility] [address] [place] [address] * VITAMIN B12 (12/17/2021 20:57 EDT) Vitamin B12 583 211 - 911 pg/mL 12/18/2021 8:54 EDT [facility] Blood VENOUS BLOOD / Unknown Venipuncture / Unknown 12/17/2021 20:57 EDT 12/17/2021 21:17 EDT Surya Gaitan MD CHEMISTRY & BLOOD GAS ORDER [place] Final Result Performing Organization Address [facility] Co de Phone Number [facility] [address] [place] [address] * TSH (12/17/2021 20:57 EDT) TSH 3.37 0.47 - 4.68 mIU/L 12/18/2021 0:48 EDT [facility] Blood VENOUS BLOOD / Unknown Venipuncture / Unknown 12/17/2021 20:57 EDT 12/17/2021 21:17 EDT Narrative [facility] - 12/18/2021 0:48 EDT The results of this assay can be falsely lowered due to the consumption of Biotin. Surya Gaitan MD CHEMISTRY & BLOOD GAS ORDER [place] Final Result Performing Organization Address City/[facility]/ZIP Co de Phone Number [facility] [address] [place] [address] * (ABNORMAL) COMPREHENSIVE METABOLIC PANEL (CMP) (12/17/2021 20:57 EDT) Sodium 140 136 - 145 mmol/L 12/17/2021 21:29 EDT [facility] Potassium 4.1 3.5 - 5.0 mmol/L 12/17/2021 21:29 [facility] Chloride 102 96 - 110 mmol/L 12/17/2021 21:29 [facility] CO2 Total 20(L) 22 - 32 mmol/L 12/17/2021 21:29 [facility] Glucose 96 70 - 100 mg/dL 12/17/2021 21:29 [facility] BUN 21 10 - 26 mg/dL 12/17/2021 21:29 [facility] Creatinine 1.22(H) 0.52 - 1.04 mg/dL 12/17/2021 21:29 [facility] eGFR 43(L) >60 mL/min/1.7 3m2 12/17/2021 21:29 [facility] Total Protein 6.9 6.3 - 8.2 g/dL 12/17/2021 21:29 [facility] Albumin 4.1 3.4 - 4.9 g/dL 12/17/2021 21:29 [facility] Alkaline Phosphatase 96 38 - 126 U/L 12/17/2021 21:29 [facility] AST 21 15 - 46 U/L 12/17/2021 21:29 [facility] ALT 9 <35 U/L 12/17/2021 21:29 [facility] Bilirubin, Total 0.8 <1.4 mg/dL 12/18/19 21:29 [facility] Calcium 9.6 8.5 - 10.5 mg/dL 12/17/2021 21:29 [facility] Albumin/Globulin Ratio 1.5 1.0 - 2.5 12/17/2021 21:29 [facility] Anion Gap 18(H) 5 - 14 12/17/2021 21:29 [facility] Blood VENOUS BLOOD / Unknown Venipuncture / Unknown 12/17/2021 20:57 T 12/17/2021 21:17 EDT Avni Torres MD CHEMISTRY & BLOOD GAS ORDERABLES Final Result [facility] [address] [place] [address] documented in this encounter Visit Diagnoses Diagnosis [...] may reflect changes made after this encounter. levothyroxine (SYNTHROID) 25 mcg tablet Take 25 [...] Routine 1030 (Given - Provid er: Yuni Sahu, [place]) PRN Medication Order 12/16/2021 12/17/2021 12/18/2021 acetaminophen (TYLENOL) tablet 650 mg 650 mg, oral, EVERY 6 HOURS PRN, Starting on Fri12/18/21 at 0600, Until Fri12/18/21 at 1958, Pain, Fever, Routine lidocaine (PF) 10 mg/mL [...] 4 mg 1 12/18/2021 polyethylene glycol 3350 (MD RALAX) packet 17 g 1 12/18/2021 ramelteon (ROZEREM) tablet 8 mg 1 [...] First Orde red Date MISCELLANEOUS DISCHARGE INSTRUCTIONS 1 12/03 documented in this encounter Care Teams Lead Tank Mechanic Relationship Specialty Start Date End Date Eloina Brewer NP [address] [place] [address] [address] [place] [address] PCP - General 10/16/20 documented as of this encounter
--- OUTSIDE RECORDS SUMMARY | 2024-05-19 18:41 | XMS_ITS | Encounter Summary ---
Author Organization [facility] Address [address] [place] [address] Care Team Providers Care Senior Dentist Name Role Phone Eloina Brewer NP Primary Care Provider [phone] Encounter Details Date Type Department Care Team (Latest Contact Info) Description 03/07/2021 Transcribe Orders [facility] [phone] Eloina Brewer NP [address] [place] [address] Pre-diabetes (Primary Dx); Hypertension, essential Social History [...] 0.47 - 4.68 ??IU/mL 03/26/2021 12:06 EST [facility] Blood VENOUS BLOOD / Unknown Venipuncture / Unknown 03/26/2021 10:07 EST 03/26/2021 10:08 EST Narrative [facility] - 03/26/2021 12:06 EST The results of this assay can be falsely lowered due to the consumption of Biotin. [employer] MANAGER PEDIATRIC CHEMISTRY & BLOOD GAS ORDER [place] Final Result Performing Organization Address [facility] de Phone Number [facility] [address] [place] [address] * (ABNORMAL) HEMOGLOBIN A1C (03/26/2021 10:07 EST) Hemoglobin A1c 5.9(H) <5.7 % 03/26/2021 13:39 [facility] Comment: Glycemic Status References: Normal: ??<5.7% Pre-Diabetes: ??5.7% - 6.4% Diagnostic of Diabetes: ??> or = 6.5% (if confirmed) Est Avg Glucose 123 mg/dL 13:39 [facility] Comment:The eAG represents t he A1c result expressed as average glucose in mg/dL. Blood VENOUS BLOOD / Unknown Venipuncture / Unknown 03/26/2021 10:07 EST 03/26/2021 10:08 EST [email or web address] CHEMISTRY & BLOOD GAS ORDER G[place] Final Result Performing Organization Address [facility] Co de Phone Number [facility] [address] [place] [address] documented in this encounter Visit Diagnoses Diagnosis Pre-diabetes- Primary Other abnormal glucose Hypertension, essential Unspecified essential hypertension documented in this encounter Care Teams Senior Dentist Relationship Specialty Start Date End Date Eloina Brewer NP [address] [facility] [facility] [address] [place] [phone] PCP - General 10/16/20 documented as of this encounter
--- OUTSIDE RECORDS SUMMARY | 2024-05-19 18:41 | XMS_ITS | Encounter Summary ---
Author Organization [facility] Address [address] [place] [address] Care Team Providers Care Banana Expert Name Role Phone Eloina Brewer GREEN ENERGY MARKETING ANALYST Primary Care Provider [phone] Encounter Details Date Type Department Care Team [...] on filedocumented in this encounter Care Teams Banana Expert Relationship Specialty Start Date End Date Eloina Brewer NP [address] [facility] [address] [place] [phone] PCP - General 10/16/20 documented as of this encounter
--- OUTSIDE RECORDS SUMMARY | 2024-05-19 18:41 | XMS_ITS | Clinical Summary ---
Author Organization [facility] Address [address] [place] [address] Care Team Providers Care Temperer Name Role Phone Eloina Brewer BINDER ROLLER Primary Care Provider Allergies Active Allergy Reactions [...] 12/06/1954 Shingles Immunization (1 of 2) 1986 Osteoporosis Screening 2001 Pneumococcal Immunization (65+) (1 of 1 - PCV) 002 RSV Immunization ( o r 60+ Years) (1 - 1-dose 75+ series) 12/06/2011 Depression Screening 08/31/2021 08/31/2020 Fall Risk Screening 08/31/2021 08/31/2020 Social Determinants Of Health (SDOH) 08/31/202108/04 COVID-19 Vaccine (2023- season) 2024 Influenza Immunization (Adult) (#1) 2024 Insurance MEDICARE [facility]CO [place] [facility] AND [address] [id number] ([place]) [address] [id number] ([place]) [address] [address] Advance Directives For more information, please contact: [phone] Documents on File Type Date Recorded Patient Digital Learning Platforms Manager Expl anation Advance Directive 09/15/2020 13:33 Living Will-Signed 2000[birth year]03-03 * Full Code (Latest Code Status on File) Date Activated Date Inactivated Comments 12/18/2021 6:00 12/18/2021 20:03 Question Answer Comments When the patient has NO PULSE: Full Code / CPR Who Made the Decision? Default/Not Discussed Care Teams Temperer Relationship Specialty Start Date End Date Eloina Brewer NP [address] [place] [phone] [facility] - General 10/16/20
--- OUTSIDE RECORDS SUMMARY | 2024-05-19 18:42 | XMS_ITS | Encounter Summary ---
Author Organization [facility] Address [address] [place] [address] Care Team Providers Care Therapist Rrt Name Role Phone Patricia Redmond MD Primary Care Provider Reason for Visit * Reason Onset Date Comments Hypertension 09/21/2020 Encounter Details Date Type Department Care Team (Late st Contact Info) Description 09/21/2020 Telephone [facility] Adult Primary Care - [address] [address] Patricia Redmond MD [address] [place] [phone] Hypertension Social History Tobacco Use Types [...] included. BP reading at last visit on 5/20 was 200/100 repeated after 1 minute of rest 188/100. Telephone call was placed at that time to the [place] office to report readings. Next scheduled visit 09/28. Sincerely, Belinda Lai cowlman [phone] Belinda Lai, RN Kezia Naranjo RN ?The only other recording is on 09/14 140/70 * Telephone Encounter - Kezia Naranjo RN - 09/26/2020 1129 EDT 09/26 @ 11:29 affiliate message sent to Home health [facility] hosp[facility] requesting recent blood pressure readings. * [...] on filedocumented in this encounter Care Teams Therapist Rrt Relationship Specialty Start Date End Date Patricia Redmond MD PCP - General Geriatric Medicine 08/31/20 10/15/20 documented as of this encounter
--- OUTSIDE RECORDS SUMMARY | 2024-05-19 18:42 | XMS_ITS | Encounter Summary ---
Author Organization [facility] Address [address] [place] [address] Care Team Providers Care Golf Starter And Ranger Name Role Phone Unavailable Primary Care Provider Unavailabl e Reason for Visit * Reason Onset Date Comments Medical Records 08/02/2020 Encounter Details Date Type Department Care Team (Late st Contact Info) Description 08/02/2020 Telephone [facility] Adult Primary Care - [address] [address] Patricia Ulloa MD [address] [place] [phone] Medical Records Social History Tobacco Use Types Packs/Day Years Used Date Smoking Tobacco: Never Smokeless Tobacco: Never Interpersonal Safety Answer Date Record ed Physically Hurt Never 2019 Verbally Threaten Not on file 2019 Comments Unknown Sex and Gender Information Value [...] Miscellaneous Notes * Telephone Encounter - Iqra Rordiges - 08/02/2020 0836 EDT Outgoing fax to Eloina Brewer's office. Medical record release form, requesting Pts medical records. documented in this encounter Plan of Treatment Not on file documented as of this encounter Visit Diagnoses Not on filedocumented in this encounter
--- OUTSIDE RECORDS SUMMARY | 2024-05-19 18:42 | XMS_ITS | Encounter Summary ---
Author Organization [facility] Address [address] [place] [address] Care Team Providers Care Banquet Food Server Name Role Phone Patricia Ulloa MD Primary Care Provider Reason for Visit * Reason Onset Date Comments Appointment Related 09/13/2020 Encounter Details Date Type Department Care Team (Late st Contact Info) Description 09/13/[address] [facility] Adult Primary Care - [address] [phone] Patricia Ulloa MD [address] [place] [phone] Appointment Related Social History Tobacco Use [...] on filedocumented in this encounter Care Teams Banquet Food Server Relationship Specialty Start Date End Date Patricia Ulloa MD PCP - General Geriatric Medicine 08/31/20 10/15/20 documented as of this encounter
--- OUTSIDE RECORDS SUMMARY | 2024-05-19 18:42 | XMS_ITS | Encounter Summary ---
Author Organization [facility] Address [address] [place] [address] Care Team Providers Care Fast Food Cook Name Role Phone Patricia Ulloa MD Primary Care Provider Reason for Visit * Reason Onset Date Comments Home Health 09/06/2020 Encounter Details Date Type Department Care Team (Late st Contact Info) Description 09/06/2020 Telephone [facility] Adult Primary Care - [address] [phone] Patricia Ulloa MD [address] [place] [phone] Home Health Social History Tobacco Use [...] on filedocumented in this encounter Care Teams Fast Food Cook Relationship Specialty Start Date End Date Patricia Ulloa MD PCP - General Geriatric Medicine 08/31/20 10/15/20 documented as of this encounter
--- OUTSIDE RECORDS SUMMARY | 2024-05-19 18:42 | XMS_ITS | Encounter Summary ---
Author Organization [facility] Address [address] [place] [address] Care Team Providers Care Miner Name Role Phone Patricia Ulloa MD Primary Care Provider Reason for Visit * Reason Onset Date Comments Medical Records 09/06/2020 Med Rec Release Encounter Details Date Type Department Care Team (Late st Contact Info) Description 09/06/2020 Telephone [facility] Adult Primary Care - [address] [address] Patricia Ulloa MD [address] [place] [phone] Medical Records (Med Rec Release) Social [...] Telephone Encounter - Iqra Rodriges - 09/06/2020 3256 EDT Outgoing mail to Pt. Medical record release forms that must be signed. documented in this encounter Plan of Treatment Not on file documented as of this encounter Visit Diagnoses Not on filedocumented in this encounter Care Teams Miner Relationship Specialty Start Date End Date Patricia Ulloa MD PCP - General Geriatric Medicine 08/31/20 10/15/20 documented as of this encounter
--- OUTSIDE RECORDS SUMMARY | 2024-05-19 18:42 | XMS_ITS | Encounter Summary ---
Author Organization [facility] Address [address] [place] [address] Care Team Providers Care Cut File Clerk Name Role Phone Patricia Ulloa MD Primary Care Provider Encounter Details Date Type Department Care Team (Late st Contact Info) Description 09/19/2020 Orders Only [facility] Adult Primary Care - [address] [phone] Patricia Ulloa MD [address] [place] [phone] Social History Tobacco Use Types [...] documented as of this encounter Care Teams Cut File Clerk Relationship Specialty Start Date End Date Patricia Ulloa MD PCP - General Geriatric Medicine 08/31/20 10/15/20 documented as of this encounter
--- OUTSIDE RECORDS SUMMARY | 2024-05-19 18:42 | XMS_ITS | Encounter Summary ---
Author Organization [facility] Address [address] [place] [address] Care Team Providers Care Boom Cat Operator Name Role Phone Unavailable Primary Care Provider Unavailabl e Encounter Details Date Type Department Care Team (Latest Contact Info) Description 07/02/2007 11:12 EST - 07/02/2007 11:59 EST Hospital Encounter [facility] Emergency Department - [address] [address] Emergency, Default, MD Discharge Disposition: Home or Self Care Social History Tobacco Use Types Packs/Day Years Used Date Smoking Tobacco: Never Assessed Comments Unknown Sex and Gender Information Value [...] findings. Roderick Graves MD IMG CT ORDERABLES Final R esult * (ABNORMAL) HEMAGRAM AND DIFFERENTIAL (07/02/2007 13:00 EST) WBC 9.03 4.0 - 12.4 K/cmm [facility] RBC 4.90 3.86 - 5.04 M/cmm [facility] Hemoglobin 14.7 11.6 - 15.2 gm/dl [facility] HCT 43.1 34.9 - 44.4 % [...] 07/02/2007 13:0 0 EST 07/02/2007 13:48 EST us Default Emergency MD PACKAGES & DNA PROBE ORDERA BLES Final Result Performing Organization Address [facility] Phone Number [facility] [address] [place] [address] * TROPONIN I (07/02/2007 13:00 EST) [facility] Troponin I pre 2011 <0.05 ng/ml [facility] Comment: Reference Range: Normal: ??Less than 0.05 Indeterminate: ??0.05-0.80 Positive: ??Greater than 0.80 07/02/2007 13:0 0 EST 07/02/2007 13:31 EST Default Emergency MD CHEMISTRY & BLOOD GAS ORDER GORDON Final Result Performing Organization Address [facility] Phone Number [facility] [address] [place] [address] * (ABNORMAL) GLUCOSE, SERUM (07/02/2007 13:00 EST) [facility] Glucose, Serum 116(H) 70 - 100 mg/dl [facility] 07/02/2007 13:0 0 EST 07/02/2007 13:31 EST Default Emergency CHEMISTRY & BLOOD GAS ORDER GORDON Final Result Performing Organization Address [facility] Phone Number [facility] [address] [place] [address] * ELECTROLYTES (07/02/2007 13:00 EST) [facility] Sodium 145 136 - 145 mEq/L [facility] Potassium 4.4 3.5 - 5.0 mEq/L [facility] Chloride 103 96 - 110 mEq/L [facility] CO2 28 24 - 32 mEq/L [facility] 07/02/2007 13:0 0 EST 07/02/2007 13:31 EST Default Emergency CHEMISTRY & BLOOD GAS ORDER GORDON Final Result [facility] [address] [place] [address] * CREATININE (07/02/2007 13:00 EST) Creatinine 0.70 0.7 - 1.5 mg/dl [facility] GFR, Calculated >60 ml/min/1.7 3m2 [facility] 07/02/2007 13:0 0 EST 07/02/2007 13:31 EST us Default Emergency MD CHEMISTRY & BLOOD GAS ORDER GORDON Final Result Performing Organization Address City/[facility] Co de Phone Number [facility] [address] [place] [address] * BUN (07/02/2007 13:00 EST) BUN 25 10 - 26 mg/dl [facility] 07/02/2007 13:0 0 EST 07/02/2007 13:31 EST us Default Emergency MD CHEMISTRY & BLOOD GAS ORDER GORDON Final Result Performing Organization Address [facility] Co de Phone Number [facility] [address] [place] [address] documented in this encounter Visit Diagnoses Not on filedocumented in this encounter
--- OUTSIDE RECORDS SUMMARY | 2024-05-19 18:42 | XMS_ITS | Encounter Summary ---
Author Organization [facility] Address [address] [place] [address] Care Team Providers Care Lead Consultant Name Role Phone Unavailable Primary Care Provider Unavailabl e Encounter Details Date Type Department Care Team (Latest Contact Info) Description 08/01/2020 10:00 EDT Phlebotomy Only [facility] - [facility] [address] [place] [address] Health examination in population survey [...] 3.5 - 5.0 mEq/L 08/01/2020 12:35 EDT [facility] Blood VENOUS BLOOD / Unknown Venipuncture / Unknown 08/01/2020 10:30 EDT 08/01/2020 10:31 EDT us Eloina Brewer NP CHEMISTRY & BLOOD GAS ORDER GORDON Final Result [facility] [address] [place] [address] * (ABNORMAL) HEMOGLOBIN A1C (08/01/2020 10:30 EDT) Hemoglobin A1c 5.7(H) <5.7 % 08/01/2020 15:10 EDT [facility] Comment: Glycemic Status References: Normal: [...] Est Avg Glucose 117 mg/dL 15:10 EDT [facility] Comment:The eAG represents t he A1c result expressed as average glucose in mg/dL. Blood VENOUS BLOOD / Unknown Venipuncture / Unknown 08/01/2020 10:30 EDT 08/01/2020 10:31 EDT us Eloina L Imperio BASKET ASSEMBLER CHEMISTRY & BLOOD GAS ORDER GORDON Final Result Performing Organization Address [facility] Co de Phone Number [facility] [address] [place] [address] * (ABNORMAL) CREATININE (08/01/2020 10:30 EDT) Creatinine 1.09(H) 0.52 - 1.04 mg/dL 08/01/2020 12:35 EDT [facility] eGFR 47(L) >60 mL/min/1.7 3m2 08/01/2020 12:35 EDT [facility] Comment:eGFR calculated gia moreno CKD-EPI equation for non- Americans. Multiply eGFR by 1.16 for patients. Blood VENOUS BLOOD / Unknown Venipuncture / Unknown 08/01/2020 10:30 EDT 08/01/2020 10:31 EDT us Eloina L Imperio BASKET ASSEMBLER CHEMISTRY & BLOOD GAS ORDER GORDON Final Result Performing Organization Address [facility] Co de Phone Number [facility] [address] [place] [address] * (ABNORMAL) TSH (08/01/2020 10:30 EDT) TSH 6.66(H) 0.47 - 4.68 uIU/mL 08/01/2020 13:08 EDT [facility] Blood VENOUS BLOOD / Unknown Venipuncture / Unknown 08/01/2020 10:30 EDT 08/01/2020 10:31 EDT Narrative [facility] - 08/01/2020 13:08 EDT The results of this assay can be falsely lowered due to the consumption of Biotin. us Eloina Brewer NP CHEMISTRY & BLOOD GAS ORDER GORDON Final Result [facility] [address] [place] [address] documented in this encounter Visit Diagnoses Diagnosis Health examination in population survey- Primary documented in this encounter
--- OUTSIDE RECORDS SUMMARY | 2024-05-19 18:42 | XMS_ITS | Encounter Summary ---
Author Organization [facility] Address [address] [place] [address] Care Team Providers Care Category Director Name Role Phone Unavailable Primary Care Provider Unavailabl e Encounter Details Date Type Department Care Team (Late st Contact Info) Description 07/02/2007 Office Visit [facility] [address] [place] [address] Roderick Graves MD Social History Tobacco Use [...] pain. No headache or blackouts. PAST HISTORY [place] Febrile sx as child El[place]. No history [...] (Daughter states pt seen x 3 in [facility] ED in past week for tremors and HTN, EKG nl x2. Told should see neurologist. Referred to ED by Dr Kumar (family friend not LMD) for neuroconsult in ED.). Pain level now: 0/10. (tremors worse at night, generalized weakness, lt neck/shoulder pain). PAST HX: ([place] 1966, pancreatis/gallbladder attack 1991, seizure, septicemia, essential [...] to the patient. Reviewed referral to an shearing machine operator for followup. Patient verbalized understanding. Written instructions provided in Portuguese. The patient was discharged home and accompanied [...]
--- OUTSIDE RECORDS SUMMARY | 2024-05-19 18:42 | XMS_ITS | Encounter Summary ---
Author Organization [facility] Address [address] [place] [address] Care Team Providers Care Hydrographic Surveyor Name Role Phone Patricia Ulloa MD Primary Care Provider Reason for Visit * Reason Onset Date Comments Other 09/15/2020 Living Will, DPO A Encounter Details Date Type Department Care Team (Late st Contact Info) Description 09/15/2020 Telephone [facility] Adult Primary Care - [address] [phone] Patricia Ulloa MD [address] [place] [phone] Other (Living Will, DPOA) Social History [...] 09/15/2020 0813 EDT Incoming mail from Pt. Living Will, and DPOA. Placed in scanning. KIANNA RODRIGES 09/15/2020 8:15 documented in this encounter Plan of Treatment Not on file documented as of this encounter Visit Diagnoses Not on filedocumented in this encounter Care Teams Hydrographic Surveyor Relationship Specialty Start Date End Date Patricia Ulloa MD PCP - General Geriatric Medicine 08/31/20 10/15/20 documented as of this encounter
--- OUTSIDE RECORDS SUMMARY | 2024-05-19 18:42 | XMS_ITS | Encounter Summary ---
Author Organization [facility] Address [address] [place] [address] Care Team Providers Care Cardiology Tech Name Role Phone Eloina Brewer NP Primary Care Provider [phone] Patricia Ulloa MD Primary Care Provider Reason for Visit * Reason Onset Date Comments Medical Records 08/30/2020 Encounter Details Date Type Department Care Team (Late st Contact Info) Description 08/30/[address] [facility] Adult Primary Care - [address] [phone] Patricia Ulloa MD [address] [place] [phone] Medical Records Social History Tobacco Use [...] 1310 EDT Outgoing call to Eloina Brewer OCCUPATIONAL HEALTH AND SAFETY MANAGER, [facility] signed and faxed apprx one month ago. We have not yet received anything. documented in this encounter Plan of Treatment Not on file documented as of this encounter Visit Diagnoses Not on filedocumented in this encounter Care Teams Cardiology Tech Relationship Specialty Start Date End Date Eloina Brewer NP [address] [place] [phone] PCP - General 10/16/20 Patricia Ulloa MD [address] [place] [phone] PCP - General Geriatric Medicine 08/31/20 10/15/20 documented as of this encounter
--- OUTSIDE RECORDS SUMMARY | 2024-05-19 18:42 | XMS_ITS | Encounter Summary ---
Author Organization [facility] Address [address] [place] [address] Care Team Providers Care Tank Systems Maintainer Name Role Phone Camila Moreland MD Primary Care Provider [phone] Reason for Visit * Reason Onset Date Comments Patient Outreach 05/21/2018 Encounter Details Date Type Department Care Team (Late st Contact Info) Description 05/21/2018 Telephone [facility] Ophthalmology - [address] [address] Travis Florez MD [address] [place] [address], [address] [place] [address] Patient Outreach Social History Tobacco Use Types Packs/Day Years Used Date Smoking Tobacco: Never Smokeless Tobacco: Never Comments Unknown Sex and Gender Information Value [...] up with . Will continue care in [facility] documented in this encounter Plan of Treatment Not on file documented as of this encounter Visit Diagnoses Not on filedocumented in this encounter Care Teams Tank Systems Maintainer Relationship Specialty Start Date End Date Camila Moreland MD [address] [place] [phone] PCP - General 03/10/15 07/02/20 documented as of this encounter
--- OUTSIDE RECORDS SUMMARY | 2024-05-19 18:42 | XMS_ITS | Encounter Summary ---
Author Organization [facility] Address [address] [place] [address] Care Team Providers Care Professor Of Business Name Role Phone Unavailable Primary Care Provider Unavailabl e Encounter Details Date Type Department Care Team (Late st Contact Info) Description 08/03/2020 Abstract [facility] Adult Primary Care - [address] [place] [address] Patricia Ulloa MD [address] [place] [phone] Social History Tobacco Use Types Packs/Day [...] may reflect changes made after this encounter. metoprolol SUCCinate (TOPROL-XL) 25 mg tablet Take 25 mg by mouth daily. 07/26/2020 NONFORMULARY 1 Capsule daily. Kidney Support Supplement 1 ascorbic acid, vitamin C, (VITAMIN C) 100 mg tablet Take 100 mg by mouth daily. 1 lisinopriL (PRINIVIL) 10 mg tablet Take 10 mg by mouth daily. 06/21/2020 2 added in this encounter
--- OUTSIDE RECORDS SUMMARY | 2024-05-19 18:42 | XMS_ITS | Encounter Summary ---
Author Organization [facility] Address [address] [place] [address] Care Team Providers Care Web Developer Name Role Phone Camila Moreland MD Primary Care Provider [phone] Reason for Visit * Reason Comments Altered [...] 18:03 EST - 04/25/2019 22:18 EST Emergency [facility] Emergency Department - [address] [id number] Kenny Birmingham MD [address] [place] [address], [address] 1 [place] [address] Non-intractable vomiting with nausea, unspecified [...] EST documented in this encounter Functional Status * [...] this encounter Medications at Time of Discharge FLAXSEED OIL ORAL Take 1 Tab by mouth three times a week. 08/31/2020 propRANolol (INDERAL) 60 mg tablet Take 40 mg by mouth every 8 hours. 08/31/2020 documented as of this encounter Discharge Disposition Disposition Code Departure Means Destination Home or Self Fdc documented in this encounter ED Notes * [...] exam for emergent medical conditions at the [facility] on 04/25/2019 Scribe attestation: This documentation is [...] Skin warm & dry. NAD.) HPI Joselo Olimpia Thornton is a 83 y.o. female with [...] took the patient out to see the [employer], the patient normally becomes car sick and [...] saw something green come out of the [employer] tree and move up in the air. [...] deficits. Differential is broad and would include RAYON CONER process such as mass/stroke versus medication side [...] ER. I recommended continued close observation at [facility], return for recurrence, worsening or any other [...] Abnormality Status --------- ------ POCT URINE DIPSTICK, CLINITEK[[id number]] POCT CSN BARCODE URINE DIP...[[id number]] Please view results for these tests on [...] the Emergency Department: Improved * Jose Dodson, RN - 04/25/2019 1801 EST Chief Complaint Patient [...] (05/04/2019 14:07 EST) 05/04/2019 14:0 7 EST us Scan 2 Trust Administrative Assistant PROCEDURE/MINOR SURGICAL OR DERABLES Final Result * (ABNORMAL) COMPLETE BLOOD COUNT AND DIFFERENTIAL (04/25/2019 19:26 EST) WBC 8.81 4.00 - 12.40 K/cmm 04/25/2019 19:42 [facility] RBC 5.03 3.86 - 5.04 M/cmm 04/25/2019 19:42 [facility] Hemoglobin 14.7 11.6 - 15.2 gm/dL 04/25/2019 19:42 [facility] HCT 46.3(H) 34.9 - 44.4 % 04/25/2019 19:42 [facility] MCV 92 81 - 98 fl 04/25/2019 19:42 [facility] MCH 29.2 26.7 - 33.3 pg 04/25/2019 19:42 [facility] MCHC 31.7(L) 32.1 - 35.9 gm/dL 04/25/2019 19:42 [facility] RDW-CV 14.6 <14.7 % 04/25/2019 19:42 [facility] RDW-SD 49.3 <50.4 fl 04/25/2019 19:42 [facility] PLT 182 141 - 377 K/cmm 04/25/2019 19:42 [facility] MPV 11.6 9.5 - 12.7 fl 04/25/2019 19:42 [facility] % Neutrophils 69.5 % 04/25/2019 19:42 [facility] % Lymphocytes 19.5 % 04/25/2019 19:42 [facility] % Monocytes 7.5 % 04/25/2019 19:42 [facility] % Eosinophils 2.4 % 04/25/2019 19:42 [facility] % Basophils 0.6 % 04/25/2019 19:42 [facility] % Immature Grans 0.5 % 04/25/20 19:42 [facility] Absolute Neutrophils 6.13 2.20 - 8.85 K/cmm 04/25/2019 19:42 [facility] Absolute Lymphocytes 1.72 1.09 - 3.30 K/cmm 04/25/2019 19:42 [facility] Absolute Monocytes 0.66 0.10 - 0.80 K/cmm 04/25/2019 19:42 [facility] Absolute Eosinophils 0.21 0.03 - 0.61 K/cmm 04/25/2019 19:42 [facility] ABS Basophils 0.05 0.01 - 0.11 K/cmm 04/25/2019 19:42 [facility] Absolute Immature Grans 0.04 0.00 - 0.06 K/cmm 04/25/2019 19:42 [facility] Type of Differential: Auto 04/25/2019 19:42 [facility] Blood VENOUS BLOOD / Unknown Venipuncture / Unknown 04/25/2019 19:26 EST 04/25/2019 19:32 EST us Kenny Birmingham MD PACKAGES & DNA PROBE ORDERABLE S Final Result [facility] [address] [place] [address] * (ABNORMAL) COMPREHENSIVE METABOLIC PANEL (CMP) (04/25/2019 19:25 EST) Sodium 140 136 - 145 mEq/L 04/25/2019 19:49 [facility] Potassium 4.5 3.5 - 5.0 mEq/L 04/25/2019 19:49 [facility] Chloride 104 96 - 110 mEq/L 04/25/2019 19:49 [facility] CO2 Total 27 22 - 32 mEq/L 04/25/2019 19:49 [facility] Glucose 115(H) 70 - 100 mg/dL 04/25/2019 19:49 [facility] BUN 32(H) 10 - 26 mg/dL 04/25/2019 19:49 [facility] Creatinine 0.81 0.52 - 1.04 mg/dL 04/25/2019 19:49 [facility] eGFR 68 >60 mL/min/1.7 3m2 04/25/2019 19:49 [facility] Comment:eGFR calculated gia moreno CKD-EPI equation for non- Americans. Multiply eGFR by 1.16 for patients. Total Protein 7.4 6.3 - 8.2 g/dL 04/25/2019 19:49 [facility] Albumin 4.3 3.4 - 4.9 g/dL 04/25/2019 19:49 [facility] Alkaline Phosphatase 139(H) 38 - 126 U/L 04/25/2019 19:49 [facility] AST 23 15 - 46 U/L 04/25/2019 19:49 [facility] ALT 14 <35 U/L 04/25/2019 19:49 [facility] Bilirubin, Total <0.5 <1.4 mg/dL 04/25/20 19:49 [facility] Calcium 9.7 8.5 - 10.5 mg/dL 04/25/2019 19:49 [facility] Calculated Calcium 9.5 8.5 - 10.5 mg/dL 04/25/2019 19:49 [facility] Blood VENOUS BLOOD / Unknown Venipuncture / Unknown 04/25/2019 19:25 EST 04/25/2019 19:32 EST us Kenny Birmingham MD CHEMISTRY & BLOOD GAS ORDERABL ES Final Result Performing Organization Address City/State/[facility] Co de Phone Number [facility] [address] [place] [address] * CT HEAD WO CONTRAST (04/25/2019 18:47 [...] above interpretation andagree with the findings. us Kenny Birmingham MD IMG CT ORDERABLES Final Result * EKG 12-LEAD (04/25/2019 18:18 EST) 04/25/2019 18:1 8 EST Narrative [facility] - 05/04/2019 14:02 EST ?[facility] Emergency ? Test Date: ?2019-04-25 Pat Name: ? JOSELO THORNTON ? Department: ?? ED ? Room: ? Gender: ? Female ? Senior Java Ui Developer: ?? [id number] : ?1935 ? Requested By: KELLI Styles Order Number: [id number] ? Erica MD: ?? PRISCILLA VICENTE MD ? Measurements Intervals ?Justice ? Rate: ? 48 ? P: ?34 IA: ? 184 ?QRS: ?32 QRSD: ? 90 ? T: ?48 QT: ? 455 ? QTc: ?407 ? Interpretive Statements SINUS BRADYCARDIA No previous ECG available for comparison I reviewed the tracing and have either agreed or edited the findings in this report. Electronically Signed On 05-04-2019 14:02:01 EST by PRISCILLA VICENTE MD. Procedure Note Priscilla Vicente MD - 05/04/2019 [facility] Emergency Test Date: 2019-04-25 Pat Name: JOSELO THORNTON Department: ED Room: Gender: Female Senior Java Ui Developer: [id number] : 1935 Requested By: KELLI Styles Order Number: [id number] Reading MD: PRISCILLA VICENTE MD Measurements Intervals Justice Rate: 48 P: 34 IA: 184 QRS: 32 QRSD: 90 T: 48 QT: 455 QTc: 407 Interpretive Statements SINUS BRADYCARDIA No previous ECG available for comparison I reviewed the tracing and have either agreed or edited the findings inthis report. Electronically Signed On 05-04-2019 14:02:01 EST by LEONA KIDD. us Salome Hummel MD MPH CARDIAC ECG ORDERABLES Final Result [facility] EKG documented in this encounter Visit Diagnoses [...] 04/25/2019 documented in this encounter Care Teams Web Developer Relationship Specialty Start Date End Date Camila Moreland MD [address] [place] [address] PCP - General 03/10/15 07/02/20 documented as of this encounter
--- OUTSIDE RECORDS SUMMARY | 2024-05-19 18:42 | XMS_ITS | Encounter Summary ---
Author Organization [facility] Address [address] [place] [address] Care Team Providers Care Telephone Exchange Operator Name Role Phone Patricia Ulloa MD Primary Care Provider Reason for Visit * Reason Comments New Patient Visit Encounter Details Date Type Department Care Team (Late st Contact Info) Description 08/31/2020 8:15 EDT Office Visit [facility] Adult Primary Care - [address] [address] Patricia Ulloa MD [address] [place] [phone] Fall, sequela (Primary Dx); Hypothyroidism, unspecified [...] 12/03/2017 13:52 EDT documented in this encounter Patient Instructions * Patient Instructions* [...] Patricia Ulloa MD - 08/31/2020 0815 EDT [facility] Adult Primary Care, Geriatrics - [facility] Subjective: Ms. Meredith Thornton is a 84 y.o. female who has the H of Patient Active Problem List Diagnosis ??? Nuclear senile cataract of right eye ??? Benign neoplasm of right retina ??? Constipation ??? Hypertension ??? Vitamin D deficiency ??? Hypothyroidism ??? Fall who comes in to clinic to establish care and Chief Complaint Patient presents with ??? New Patient Visit She has moved to the area to live with daughter from [facility]. She is transferring care from [facility]. We do not have records at this time. They have been requested. She also sees a Research Executive, Dr. Granger. She has seen a Neurologist, Cezar White. She is here today with her daughter Gabriel. 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 DENTAL IADL- car removed May 2019, retested Neurologist in July 2019 and she didn't get car back ( memorytesting), Gabriel helps with finances, Gabriel does cooking, cleaning Social History - born in [facility] -Daughter Gabriel in [place], son Diego in [place] - 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 [place] history so has not received many vaccines [...] Endo None 11/30/2020 8:15 Patricia Ulloa MD [facility] Patricia Ulloa MD [facility] General Internal Medicine and Geriatrics 08/31/2020 [...] may reflect changes made after this encounter. senna (SENOKOT) 8.6 mg tablet Take 1 Tab by mouth daily as needed. cholecalciferol, Vitamin D3, 25 mcg (1,000 unit) tablet Take 5,000 Units by mouth daily. 12/18/2021 bisacodyL (DULCOLAX) 5 mg EC tablet Take 5 mg by mouth daily as needed for Constipation. 09/19/2020 added in this encounter Care Teams Telephone Exchange Operator Relationship Specialty Start Date End Date Patricia Ulloa MD PCP - General Geriatric Medicine 08/31/20 10/15/20 documented as of this encounter
--- OUTSIDE RECORDS SUMMARY | 2024-05-19 18:42 | XMS_ITS | Encounter Summary ---
Author Organization [facility] Address [address] [place] [address] Care Team Providers Care Power Switchboard Operator Name Role Phone Unavailable Primary Care [...]
--- OUTSIDE RECORDS SUMMARY | 2024-05-19 18:42 | XMS_ITS | Encounter Summary ---
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 Ref here from Dr. Arellano * Referral (Routine) - Closed Specialty Diagnoses / Procedures Referred By Kayla goodman Referred To Contact Ophthalmology Diagnoses Age-related macular degeneration Bilateral dry eyes Cas Pineda MD Phone: tel: fax: [facility] Ophthalmology - Main [place] [address] [place] [address] Phone: tel: fax: Referral ID Status Reason Start Date Expiration Date Visits Re quested Visits Authorized [id number] Closed 1 1 Encounter Details Date Type Department Care Team (Late st Contact Info) Description 12/03/2017 13:15 EDT Office Visit [facility] Ophthalmology - Main [address] [address] Travis Florez MD [address] [place] [address], [address] [place] [address] Discharge Disposition: Auto Discharge Social [...] - documented in this encounter Functional Status * [...] 13:52 EDT documented in this encounter Discharge Diagnoses Diagnosis [id number] Exudative [...] involvement Plan: Dry AMD both eyes Meredith Olimpia Olsenie has been informed that she has age-related [...] Florez MD - 12/03/2017 0000 EDT [facility] OPHTHAL[facility]OLOG[facility] December 03, 2017 Isaiah Quick OD [facility] [address], [address] [place] [address] RE: MEREDITH THORNTON : 1935 Dear Isaiah, [...] - Travis Florez MD ln Dictation ID: [id number] cc: Isaiah Quick OD, [facility] [address], [address], [place] [address] documented in this encounter Plan of Treatment [...] may reflect changes made after this encounter. FLAXSEED OIL ORAL Take 1 Tab by [...] vus superior to nerve 1dd Care Teams Product Safety Associate Relationship Specialty Start Date End Date Camila Moreland MD [address] [place] [address] PCP - General 03/10/15 07/02/20 documented as of this encounter
--- OUTSIDE RECORDS SUMMARY | 2024-05-19 18:42 | XMS_ITS | Encounter Summary ---
Author Organization [facility] Address [address] [place] [address] Care Team Providers Care Package Clerk Name Role Phone Unavailable Primary Care Provider Unavailabl e Reason for Visit * Reason Onset Date Comments Paperwork request 08/03/2020 NPV Packet Encounter Details Date Type Department Care Team (Late st Contact Info) Description 08/03/2020 Telephone [facility] Adult Primary Care - [address] [address] Patricia Ulloa MD [address] [place] [address] Paperwork request (NPV Packet) Social [...]
[2024-05-19 19:18] LABS: ALT 44 U/L (14-59); AST 48 U/L (15-37); Albumin 3.5 g/dL (3.4-5.0); Alkaline Phosphatase 217 U/L (46-116); Anion Gap 13.6 mmol/L (3-11); BUN 41 mg/dL (7-18); Bilirubin, Total 0.24 mg/dL (0.2-1.0); CO2 24.4 mmol/L (21.0-32.0); Calcium 9.5 mg/dL (8.5-10.1); Chloride 106 mmol/L (98-107); Estimated GFR 23.73 (mL/min/1.73m2); Glucose 120 mg/dL (74-106); Potassium 4.9 mmol/L (3.5-5.1); Sodium 144 mmol/L (136-145); TSH (W/Ref FT4) 4.85 uIU/mL (0.36-3.74); Total Protein 7.5 g/dL (6.4-8.2)
[2024-05-19 19:53] LABS: Bacteria Negative HPF (Negative); Crystals Negative HPF (Negative); Epithelial Cells Few HPF (Negative); Mucus Negative (Negative); RBC Negative HPF (0-2)
[2024-05-19 19:54] LABS: Casts 5-10 Hyaline LPF (Negative)
[2024-05-19 20:09] LABS: FREE T4 0.84 ng/dL (0.76-1.46)
[2024-05-19 21:23] LABS: C & S Indicated? C&S Done As Ordered
== END 2024-05-19 18:40 | disposition home or self-care (01) ==
LOC: LBN 18:39
PROVIDERS: PCP Legal Medicine; Visit Provider Nurse Practitioner Gerontology
DX: E03.9 Hypothyroidism, unspecified (principal); N39.0 Urinary tract infection, site not specified; R82.89 Other abnormal findings on cytological and histological examination of urine
CPT/HCPCS: 80053; 81003; 81015; 84439; 84443; 85025; 87086

== ENCOUNTER 2024-05-24 19:22 | Outpatient (REF) | payer MEDICARE, MEDICAID, SELFPAY ==
[2024-05-24 18:35] LABS: Bilirubin Negative (Negative); Blood Negative (Negative); Clarity Clear (Clear); Glucose Negative (Negative); Ketones Negative (Negative); Leukocyte Esterase Negative (Negative); Nitrite Negative (Negative); Urobilinogen 0.2 mg/dL (Up to 0.2)
--- OUTSIDE RECORDS SUMMARY | 2024-05-24 19:24 | XMS_ITS | Clinical Summary ---
Author Organization [facility] Address [address] [place] [address] Care Team Providers Care Lead Based Paint Technician Name Role Phone Eloina Brewer PRODUCTION SUPPORT MANAGER Primary Care Provider Allergies Active Allergy Reactions [...] original. Patient has given permission for [facility] to verbally discuss the following information [...] (Adult) (#1) 2024 Insurance MEDICARE [place] [facility] AND [address] [id number] ([place]) [address] [address] ([place]) [address] [address] Advance Directives For more information, please contact: [phone] Documents on File Type Date Recorded Patient Cooler Servicer Expl anation Advance Directive 09/15/2020 13:33 Living Will-Signed 2000-03-03 * Full Code (Latest Code Status on File) Date Activated Date Inactivated Comments 12/18/2021 6:00 12/18/2021 20:03 Question Answer Comments When the patient has NO PULSE: Full Code / CPR Who Made the Decision? Default/Not Discussed Care Teams Lead Based Paint Technician Relationship Specialty Start Date End Date Eloina Brewer NP [address] [place] [phone] [facility] - General 10/16/20
--- OUTSIDE RECORDS SUMMARY | 2024-05-24 19:24 | XMS_ITS | Encounter Summary ---
Author Organization [facility] Address [address] [place] [address] Care Team Providers Care File Drawer Finisher Name Role Phone DaniellaTomasEloina L BUSHER HELPER Primary Care Provider [phone] [phone] Reason for Visit * Reason Comments Altered [...] Expiration Date Visits Re quested Visits Authorized [id number] 1 1 Encounter Details Date Type Department Care Team (Late st Contact Info) Description 12/17/2021 17:12 EDT - 12/18/2021 17:[address] [facility] General Medicine Unit [address], [place] [id number] Sylvester Medeiros MD Doyle-Burr, Caleb J, MD [address] [phone] Sarah Prater MD MPH [address] [facility], Level 1 [place] [phone] Dante Huerta MD [address] [place] [address] Riley Perera MD 111 [facility], [facility] 1 [place] [address] Dementia with behavioral disturbance, unspecified dementia type (HCC-CMS) (HCC) (Primary Dx) Discharge Disposition: Nursing Facility (Jail Care Bed) Social History Tobacco Use Types [...] of Assessment Author Yes 12/18/2021 12:03 EDT Stehpy Feliciano, RN * Because of a physical, [...] Date: 12/17/21 Discharge Date: 12/18/2021 Disposition (location): [facility] Condition at Discharge: Stable Reason for Admission (chief complaint): Agitation, hallucinations Principal/Final Diagnosis: Dementia with behavioral disturbance, unspecified dementia type (HCC-CMS) (FORMERLY [facility]) Additional Problems Managed in the Hospital: Active Hospital Problems Diagnosis Date Noted ??? *Dementia with behavioral disturbance, unspecified dementia type (HCC-CMS) ([facility]) 12/18/2021 ??? Agitation 12/17/2021 ??? Constipation 09/19/2020 ??? Hypertension 09/19/2020 ??? Hypothyroidism 09/19/2020 ??? Personal history of fall 09/19/2020 Resolved Hospital Problems No resolved problems to display. Transition of care: [facility] Transition of Care report automatically routed to PCP office on discharge.Additional handoff communication performed via: [employer] Staff Message - DC summ and note sent to Dr. Antoine (with whom pt is establishing care on 01/02). Clinical Issues Needing Follow-up 1. Pertinent medication changes: - Continued on home metoprolol 25mg daily, levothyroxine 25mcg daily, quetiapine 50mg BID 2. Recommended follow-up tests/procedures needed: - Follow up with Dr. Antoine on 01/02 - Recommend continuing attempts to obtain records from prior PCP ([facility]) - Would obtain formal cognitive assessment (MOCA, [...] and history of falls, who presented to [facility] on 12/17 with with??progressively worsening??agitation and [...] Office Visit Medium with Margret Antoine MD [facility] Adult Primary Care - [place] ([facility]) [address] [facility] [address] Plan discussed at length with Dr. Kush [...] Disposition Code Departure Means Destination Nursing Facility (Classifier Operator Care Bed) documented in this encounter Progress Notes * Samantha Stewart RN - 12/18/2021 1758 EDT Nursing Discharge Note D: Patient noted with discharge orders to: [facility]. A: Prescriptions e-scripted. Reviewed discharge instructions and prescriptions with Patient and Other IV d/c'd. Belongings collected and sent home with patient. Report called to Omayra at [facility]. R: DaughterYris, verbalized understanding of discharge instructions and denied further questions. SAMANTHA STEWART RN 12/18/2021 18:09 * Stephany Ma - 12/18/2021 1630 EDT Call from Pt daughter. They have found a bed at [facility]. They would like to come tonite at 6pm to pick her up . MD aware and plan to DC to go with family. They will transport to her adult home. Advised to put applications in for NHP . They are working on LTC medicaid. [id number] * Nichole Spain RN - 12/18/2021 1431 [...] LDA for any identified wounds ??? Add [place] image for any suspected PI ??? Order [...] Mom on the list for memorycare (? [facility]) but was on a 5 year wait list. She states she has been in touch with [facility] patients and she will call them again today to see if pt canhouse there until she goes to [place]. She is requesting placement at this time. I reviewed choices and fact that we would need to rapidly expand search from the hospital. She does understand that. I alsoreviewed the fact that pt may soon become half-way care and that medicare may no longer pay for hospital. She does understand. CM will follow Stephany Ma,RNCCM #[id number] * Kristen Gasca MD - 12/18/2021 0606 [...] ago - hit head. Startedhallucinating 2y ago [place] - had very high BP, none specifically [...] of cognitive impairment #Hx of falls - LOFTSMAN Seroquel 50 mg BID - Delirium + [...] discovered in the spring when admitted in [facility], prompting PET scan. - Unclear at this time if patient would like to pursue further work-up. Query MOCA, will need formal capacity evaluation. Daughter at this time (HCP) recognizes that patient is FULL CODE, though alsoendorses statements like just kill me now. May warrant palliative involvement for further elucidation of GOC in the future. ?? Chronic/resolved issues: #HTN: LOFTSMAN metoprolol 25 mg #CKDIII: baseline 1.1-1.2, though limited data in last year. Trend daily, avoid nephrotoxins #Hypothyroidism: LOFTSMAN Levothyroxine 25 mcg, TSH therapeutic #Chronic constipation: LOFTSMAN senna and miralax PRN Diet: geriatric diet [...] Huerta MD 12/18/21 13:14 * Uli Barrow [facility] - 12/17/2021 2014 EDT SW consult [...] working with [employer] to apply for [facility] and there are no finances for caregivers or NH level of care at this time. At this time family is adamant they cannot care for Meredith at home. It does seem that Meredith's behavior is very difficult to manage and unsafe in private home. [facility] documented in this encounter H&P Notes * Surya Gaitan MD - 12/17/2021 3928 EDT Medicine Admission History & Physical Service [...] any visual. She notes she is in [place] and its December 2021. She knowns she [...] possible lung lesions component via mets/paraneoplastic - LOFTSMAN Seroquel 50 mg BID - s/p Olanzapine 7.5 mg in ED - CT H/Cervical pending - Delirium + Fall precautions - TSH, B12, Folate pending - PT/OT pending - Nutrition c/s #Lung lesion: 3.9 cm lobulated/spiculated 12/12 CT scan; - Not discussed with patient/family will need further discussion in AM but apparently aware per notes from ED visit Chronic/resolved issues: #HTN: LOFTSMAN lisinopril + Metoprolol 25 mg #CKDIII: baseline [...] follow up with PCP who presents to [facility] with increasing agitated behaviors and delusions. [...] time. Will continue to monitor. * Tanisha Aclala - 12/18/2021 0148 EDT Continous monitoring removed per MD Avendaño related to high fall risk. Patient has not attempted to get out of bed, however, continues to be disorganized in thought pattern. Oriented to place, but situationally unaware. Bed in lowest position, patient in view of grinding operator and gunite mixer. * Sarah Prater MD MPH - 12/18/2021 0008 EDT This patient received an evaluation and medical screening exam for emergent medical conditions at the [facility] on 12/18/2021. This documentation is recorded [...] with behavioral disturbance, unspecified dementia type (HCC-CMS) ([facility]) * Tanisha Alcala - 12/17/2021 2332 EDT [...] the patient had an acute mental status change manager the past several days to a week [...] a visitor, reported not thinking clearly. This Technology Engineer performeda FAST-Exam on the patient, which was negative. Patient reported not feeling safe due to own thinking. Patient preferred to talk further in private setting - passenger car inspector aware. documented in this encounter Miscellaneous Notes [...] CT ORDERABLES Final Result * COVID-19 TEST [facility] PCR (12/17/2021 23:38 EDT) Swab BOTH ANTERIOR NARES / Unknown Swab / Unknown 12/17/2021 23:38 EDT 12/17/2021 23:40 EDT Avni Torres MD MICROBIOLOGY - NERAL ORDERABLES Final Result [facility] [address] [place] [address] * COVID-19 TESTING (12/17/2021 23:38 EDT) COVID-19 rt-PCR Result Negative Negative 12/18/2021 1:02 EDT [facility] Comment: This test [...] history, and epidemiological information. Performed on the [employer] Mobile Interaction GeneXpert Instrument Performing Lab GeneXpert [facility] 12/18/2021 1:02 EDT [facility] Swab BOTH ANTERIOR NARES / Unknown Swab / Unknown 12/17/2021 23:38 EDT 12/17/2021 23:40 EDT Avni Torres MD MICROBIOLOGY - NERIL ORDERABLES Final Result [facility] [address] [place] [phone] * (ABNORMAL) URINE CHEMICAL (DIP) & SEDIMENT (MICRO) WITH REFLEX TO CULTURE (12/17/2021 22:20 EDT) Color UA Colorless Colorless, Yellow 12/17/2021 22:32 EDT [facility] Clarity UA Clear Clear 12/17/2021 22:32 EDT [facility] Glucose UA Negative Negative 12/17/2021 22:32 EDT [facility] Bilirubin UA Negative Negative 12/17/2021 22:32 [facility] Ketones UA 1+(A) Negative 12/17/2021 22:32 [facility] Specific [place], Urine 1.004 1.001 - 1.035 12/17/2021 22:32 [facility] Blood UA Negative Negative 12/17/2021 22:32 [facility] Urobilinogen UA Normal Normal mg/dL 022 22:32 [facility] Nitrite UA Negative Negative 12/17/2021 22:32 [facility] Leukocyte Esterase UA Negative Negative 12/17/2021 22:32 [facility] Protein UA Negative Negative 12/17/2021 22:32 [facility] pH, UA 6.0 4.6 - 8.0 12/17/2021 22:32 [facility] Urine RBC Count, Auto 0 - 2 0 - 2 Cells/HPF 12/17/2021 22:32 [facility] Urine WBC Count, Auto 0 - 3 0 - 3 Cells/HPF 12/17/2021 22:32 [facility] Urine Squamous Count, Auto Few(A) None Seen Cells/HPF 12/17/2021 22:32 [facility] Urine Hyaline Cast Count, Auto <=10 <=10 Casts/LPF 12/17/2021 22:32 [facility] Urine Bacteria Count, Auto None Seen None Seen Bacteria/HPF 12/17/2021 22:32 [facility] Urine URINE SPECIMEN COLLECTION, CLEAN CATCH / Unknown Urine Collect / Unknown 12/17/2021 22:20 EDT 12/17/2021 22:25 [facility] - 12/17/2021 22:32 [facility] NOTE: Reflex to Urine Culture test is not indicated based on Urine Sediment Analysis results. Urine Sediment Analysis results are unreliable on urines that are unrefrigerated for >2 hrs or refrigerated >8 hrs. us Avni Torres MD URINALYSIS ORDERA BLES Final Result [facility] [address] [place] [address] * (ABNORMAL) COMPLETE BLOOD COUNT AND DIFFERENTIAL (12/17/2021 20:58 EDT) WBC 9.22 4.00 - 12.40 K/cmm 12/17/2021 21:23 [facility] RBC 4.42 3.86 - 5.04 M/cmm 12/17/2021 21:23 [facility] Hemoglobin 13.1 11.6 - 15.2 gm/dL 12/17/2021 21:23 [facility] HCT 38.5 34.9 - 44.4 % 12/17/2021 21:23 [facility] MCV 87 81 - 98 fl 12/17/2021 21:23 [facility] MCH 29.6 26.7 - 33.3 pg 12/17/2021 21:23 [facility] MCHC 34.0 32.1 - 35.9 gm/dL 12/17/2021 21:23 [facility] RDW-CV 14.0 <14.7 % 12/17/2021 21:23 [facility] RDW-SD 44.7 <50.4 fl 12/17/2021 21:23 [facility] PLT 225 141 - 377 K/cmm 12/17/2021 21:23 [facility] MPV 11.5 9.5 - 12.7 fl 12/17/2021 21:23 [facility] % Neutrophils 65.9 % 12/17/2021 21:23 [facility] % Lymphocytes 24.1 % 12/17/2021 21:23 [facility] % Monocytes 7.4 % 12/17/2021 21:23 [facility] % Eosinophils 0.9 % 12/17/2021 21:23 [facility] % Basophils 0.8 % 12/17/2021 21:23 [facility] % Immature Grans 0.9 % 12/18/19 21:23 [facility] Absolute Neutrophils 6.09 2.20 - 8.85 K/cmm 12/17/2021 21:23 [facility] Absolute Lymphocytes 2.22 1.09 - 3.30 K/cmm 12/17/2021 21:23 [facility] Absolute Monocytes 0.68 0.10 - 0.80 K/cmm 12/17/2021 21:23 [facility] Absolute Eosinophils 0.08 0.03 - 0.61 K/cmm 12/17/2021 21:23 [facility] ABS Basophils 0.07 0.01 - 0.11 K/cmm 12/17/2021 21:23 [facility] Absolute Immature Grans 0.08(H) 0.00 - 0.06 K/cmm 12/17/2021 21:23 [facility] Type of Differential: Auto 12/17/2021 21:23 [facility] Blood VENOUS BLOOD / Unknown Venipuncture / Unknown 12/17/2021 20:58 EDT 12/17/2021 21:13 EDT Avni Torres MD PACKAGES & DNA AL OBE ORDERABLES Final Result [facility] [address] [place] [address] * FOLATE (12/17/2021 20:57 EDT) Folate 7.1 See Note ng/mL 12/18/2021 8:57 T [facility] Comment: Reference Ranges [...] ORDER GORDON Final Result Performing Organization Address City/[facility]/ZIP Co de Phone Number [facility] [address] [place] [address] * VITAMIN B12 (12/17/2021 20:57 EDT) Vitamin B12 583 211 - 911 pg/mL 12/18/2021 8:54 EDT [facility] Blood VENOUS BLOOD / Unknown Venipuncture / Unknown 12/17/2021 20:57 EDT 12/17/2021 21:17 EDT Surya Gaitan MD CHEMISTRY & BLOOD GAS ORDER GORDON Final Result Performing Organization Address [facility] Co de Phone Number [facility] [address] [place] [address] * TSH (12/17/2021 20:57 EDT) TSH 3.37 0.47 - 4.68 mIU/L 12/18/2021 0:48 EDT [facility] Blood VENOUS BLOOD / Unknown Venipuncture / Unknown 12/17/2021 20:57 EDT 12/17/2021 21:17 EDT Narrative [facility] - 12/18/2021 0:48 EDT The results of this assay can be falsely lowered due to the consumption of Biotin. Surya Gaitan MD CHEMISTRY & BLOOD GAS ORDER GORDON Final Result Performing Organization Address City/[facility]/ZIP Co de Phone Number [facility] [address] [place] [address] * (ABNORMAL) COMPREHENSIVE METABOLIC PANEL (CMP) (12/17/2021 20:57 EDT) Sodium 140 136 - 145 mmol/L 12/17/2021 21:29 EDT [facility] Potassium 4.1 3.5 - 5.0 mmol/L 12/17/2021 21:29 [facility] Chloride 102 96 - 110 mmol/L 12/17/2021 21:29 [facility] CO2 Total 20(L) 22 - 32 mmol/L 12/17/2021 21:29 [facility] Glucose 96 70 - 100 mg/dL 12/17/2021 21:29 [facility] BUN 21 10 - 26 mg/dL 12/17/2021 21:29 [facility] Creatinine 1.22(H) 0.52 - 1.04 mg/dL 12/17/2021 21:29 [facility] eGFR 43(L) >60 mL/min/1.7 3m2 12/17/2021 21:29 [facility] Total Protein 6.9 6.3 - 8.2 g/dL 12/17/2021 21:29 [facility] Albumin 4.1 3.4 - 4.9 g/dL 12/17/2021 21:29 [facility] Alkaline Phosphatase 96 38 - 126 U/L 12/17/2021 21:29 [facility] AST 21 15 - 46 U/L 12/17/2021 21:29 [facility] ALT 9 <35 U/L 12/17/2021 21:29 [facility] Bilirubin, Total 0.8 <1.4 mg/dL 12/18/19 21:29 [facility] Calcium 9.6 8.5 - 10.5 mg/dL 12/17/2021 21:29 [facility] Albumin/Globulin Ratio 1.5 1.0 - 2.5 12/17/2021 21:29 [facility] Anion Gap 18(H) 5 - 14 12/17/2021 21:29 [facility] Blood VENOUS BLOOD / Unknown Venipuncture / Unknown 12/17/2021 20:57 T 12/17/2021 21:17 EDT Avni Torres MD CHEMISTRY & BLOOD GAS ORDERABLES Final Result [facility] [address] [place] [address] documented in this encounter Visit Diagnoses Diagnosis [...] 4 mg 1 12/18/2021 polyethylene glycol 3350 (ND RALAX) packet 17 g 1 12/18/2021 ramelteon [...] 12/03 documented in this encounter Care Teams File Drawer Finisher Relationship Specialty Start Date End Date Eloina Brewer NP [address] [place] [address] [address] [place] [address] PCP - General 10/16/20 documented as of this encounter
--- OUTSIDE RECORDS SUMMARY | 2024-05-24 19:24 | XMS_ITS | Encounter Summary ---
Author Organization [facility] Address [address] [place] [address] Care Team Providers Care Lining Strap Closer Name Role Phone Eloina Brewer PICK UP Primary Care Provider [phone] Encounter Details Date Type Department Care Team (Late st Contact Info) Description 01/17/2022 Documentation Visit [facility] Hematology & Oncology - [address] [phone] Ruben Pradhan, RN Social History Tobacco Use [...] on filedocumented in this encounter Care Teams Lining Strap Closer Relationship Specialty Start Date End Date Eloina Brewer NP [address] [place] [address] [address] [place] [phone] PCP - General 10/16/20 documented as of this encounter
--- OUTSIDE RECORDS SUMMARY | 2024-05-24 19:24 | XMS_ITS | Encounter Summary ---
Author Organization [facility] Address [address] [place] [address] Care Team Providers Care Spd Tech Name Role Phone Eloina Brewer FLIGHT ENGINEER PERFORMANCE QUALIFIED Primary Care Provider Encounter Details Date Type Department Care Team (Latest Contact Info) Description 12/12/2021 10:30 EDT Phlebotomy Only [facility] - [facility] ([facility] [place]) [address] [place] [phone] Hypertension (Primary Dx) Social History Tobacco Use [...] 136 - 145 mmol/L 12/12/2021 12:48 EDT [facility] Potassium 4.2 3.5 - 5.0 mmol/L 12/12/2021 12:48 T [facility] Chloride 105 96 - 110 mmol/L 12/12/2021 12:48 T [facility] CO2 Total 21(L) 22 - 32 mmol/L 12/12/2021 12:48 T [facility] Anion Gap 17(H) 5 - 14 12/12/2021 12:48 [facility] Glucose 112(H) 70 - 100 mg/dL 12/12/2021 12:48 [facility] Calcium 9.0 8.5 - 10.5 mg/dL 12/12/2021 12:48 [facility] BUN 21 10 - 26 mg/dL 12/12/2021 12:48 [facility] Creatinine 1.16(H) 0.52 - 1.04 mg/dL 12/12/2021 12:48 [facility] eGFR 46(L) >60 mL/min/1.73 m2 12/12/2021 12:48 [facility] Blood VENOUS BLOOD / Unknown Venipuncture / Unknown 12/12/2021 10:40 EDT 12/12/2021 10:41 EDT us Arleth Sylvester MD CHEMISTRY & BLOOD GAS O RDERABLES Final Result [facility] [address] [place] [address] documented in this encounter Visit Diagnoses Diagnosis Hypertension- Primary Unspecified essential hypertension documented in this encounter Care Teams Spd Tech Relationship Specialty Start Date End Date Eloina Brewer NP [address] [place] [id number] PCP - General 10/16/20 documented as of this encounter
--- OUTSIDE RECORDS SUMMARY | 2024-05-24 19:24 | XMS_ITS | Encounter Summary ---
Author Organization [facility] Address [address] [place] [address] Care Team Providers Care Underground Foreman Name Role Phone Eloina Brewer SUSTAINABLE AGRICULTURE FACULTY Primary Care Provider Reason for Visit * Reason Comments Constipation several days since l ast BM. Pt lives with daughter and is vague historian. asked daughter for laxitative several days ago. Per daughter does not drink enough fluids. Pt states nausea after eating. Encounter Details Date Type Department Care Team (Late st Contact Info) Description 11/16/2021 12:31 EDT - 11/16/2021 14:32 EDT Emergency [facility] Emergency Department - Main [address] [id number] Jakob Larios PA-C [address] [facility] [address] [place] [address] Constipation, unspecified constipation type (Primary Dx) [...] Code Departure Means Destination Home or Self Group Home documented in this encounter ED Notes * [...] 134(L) 136 - 145 mmol/L 11/16/2021 13:50 [facility] Potassium 3.9 3.5 - 5.0 mmol/L 11/16/2021 13:50 [facility] Chloride 99 96 - 110 mmol/L 11/16/2021 13:50 [facility] CO2 Total 28 22 - 32 mmol/L 11/16/2021 13:50 [facility] Anion Gap 7 5 - 14 11/16/2021 13:50 [facility] Glucose 117(H) 70 - 100 mg/dL 11/16/2021 13:50 [facility] Calcium 8.5 8.5 - 10.5 mg/dL 11/16/2021 13:50 [facility] BUN 55(H) 10 - 26 mg/dL 11/16/2021 13:50 [facility] Creatinine 1.64(H) 0.52 - 1.04 mg/dL 11/16/2021 13:50 [facility] eGFR 31(L) >60 mL/min/1.73 m2 11/16/2021 13:50 [facility] Blood VENOUS BLOOD / Unknown Venipuncture / Unknown 11/16/2021 13:28 EDT 11/16/2021 13:33 EDT Jakob Larios PA-C CHEMISTRY & BLOOD GAS ORDERABLES Final Result [facility] [address] [place] [address] * (ABNORMAL) COMPLETE BLOOD COUNT AND DIFFERENTIAL (11/16/2021 13:27 EDT) WBC 6.68 4.00 - 12.40 K/cmm 11/16/2021 13:45 [facility] RBC 5.04 3.86 - 5.04 M/cmm 11/16/2021 13:45 [facility] Hemoglobin 14.8 11.6 - 15.2 gm/dL 11/16/2021 13:45 [facility] HCT 44.4 34.9 - 44.4 % 11/16/2021 13:45 [facility] MCV 88 81 - 98 fl 11/16/2021 13:45 [facility] MCH 29.4 26.7 - 33.3 pg 11/16/2021 13:45 [facility] MCHC 33.3 32.1 - 35.9 gm/dL 11/16/2021 13:45 [facility] RDW-CV 13.5 <14.7 % 11/16/2021 13:45 [facility] RDW-SD 43.7 <50.4 fl 11/16/2021 13:45 [facility] PLT 142 141 - 377 K/cmm 11/16/2021 13:45 [facility] MPV 11.9 9.5 - 12.7 fl 11/16/2021 13:45 [facility] % Neutrophils 71.7 % 11/16/2021 13:45 [facility] % Lymphocytes 16.2 % 11/16/2021 13:45 [facility] % Monocytes 11.1 % 11/16/2021 13:45 [facility] % Eosinophils 0.1 % 11/16/2021 13:45 [facility] % Basophils 0.3 % 11/16/2021 13:45 [facility] % Immature Grans 0.6 % 11/17/19 13:45 [facility] Absolute Neutrophils 4.79 2.20 - 8.85 K/cmm 11/16/2021 13:45 [facility] Absolute Lymphocytes 1.08(L) 1.09 - 3.30 K/cmm 11/16/2021 13:45 [facility] Absolute Monocytes 0.74 0.10 - 0.80 K/cmm 11/16/2021 13:45 [facility] Absolute Eosinophils 0.01(L) 0.03 - 0.61 K/cmm 11/16/2021 13:45 [facility] ABS Basophils 0.02 0.01 - 0.11 K/cmm 11/16/2021 13:45 EDT [facility] Absolute Immature Grans 0.04 0.00 - 0.06 K/cmm 11/16/2021 13:45 EDT [facility] Type of Differential: Auto 11/16/2021 13:45 EDT [facility] Blood VENOUS BLOOD / Unknown Venipuncture / Unknown 11/16/2021 13:27 EDT 11/16/2021 13:33 EDT Jakob Larios PA-C PACKAGES & DNA PROBE O RDERABLES Final Result [facility] [address] [place] [address] documented in this encounter Visit Diagnoses Diagnosis [...] 11/16/2021 documented in this encounter Care Teams Underground Foreman Relationship Specialty Start Date End Date Eloina Brewer NP [address] [place] [address] [address] [place] [address] PCP - General 10/16/20 documented as of this encounter
--- OUTSIDE RECORDS SUMMARY | 2024-05-24 19:24 | XMS_ITS | Encounter Summary ---
Author Organization [facility] Address [address] [place] [address] Care Team Providers Care Clinical Radiologist Name Role Phone Eloina Brewer ENTRY LEVEL ACCOUNT EXECUTIVE Primary Care Provider [phone] Encounter Details Date Type Department Care Team [...] on filedocumented in this encounter Care Teams Clinical Radiologist Relationship Specialty Start Date End Date Eloina Brewer NP [address] [facility] [address] [place] [phone] PCP - General 10/16/20 documented as of this encounter
--- OUTSIDE RECORDS SUMMARY | 2024-05-24 19:24 | XMS_ITS | Referral Summary ---
Author Organization [facility] Address [address] [place] [address] Care Team Providers Care Mixing And Dispensing Supervisor Name Role Phone Eloina Brewer [employer] Primary Care Provider [phone] Allergies Active Allergy Reactions Criticality Noted Date [...] original. Patient has given permission for [facility] to verbally discuss the following information with [...] Advance Directives For more information, please contact: [phone] Documents on File Type Date Recorded Patient Inspector Outside Production Expl anation Advance Directive 09/15/2020 13:33 Living Will-Signed 2000-03-03 * Full Code (Latest Code Status on File) Date Activated Date Inactivated Comments 12/18/2021 6:00 12/18/2021 20:03 Question Answer Comments When the patient has NO PULSE: Full Code / CPR Who Made the Decision? Default/Not Discussed Care Teams Mixing And Dispensing Supervisor Relationship Specialty Start Date End Date Eloina Brewer NP [address] [place] [phone] PCP - General 10/16/20
--- OUTSIDE RECORDS SUMMARY | 2024-05-24 19:24 | XMS_ITS | Encounter Summary ---
Author Organization [facility] Address [address] [place] [address] Care Team Providers Care Adjunct Communications Faculty Member Name Role Phone Eloina Brewer SUPERVISOR ADVERTISING DISPATCH CLERKS Primary Care Provider [phone] Encounter Details Date Type Department Care Team [...] on filedocumented in this encounter Care Teams Adjunct Communications Faculty Member Relationship Specialty Start Date End Date Eloina Brewer NP [address] [facility] [address] [place] [phone] PCP - General 10/16/20 documented as of this encounter
--- OUTSIDE RECORDS SUMMARY | 2024-05-24 19:24 | XMS_ITS | Encounter Summary ---
Author Organization [facility] Address [address] [place] [address] Care Team Providers Care Legislative Assistant Name Role Phone Eloina Brewer NP Primary Care Provider [phone] Reason for Referral * Radiology Services (Routine/Next Available) - Authorization Not Required Specialty Diagnoses / Procedures Referred By Kayla goodman Referred To Contact Nuclear Medicine Diagnoses Solitary pulmonary nodule Procedures PET CT EYE TO THIGH Eloina Brewer NP [address] [place] [address] Phone: tel: fax: [facility] Referral ID Status Reason Start Date Expiration Date Visits Requested Visits Authorized [id number] Authorization Not Required 09/26/2021 1 1 Reason for Visit * Radiology Services (Routine/Next Available) - Authorization Not Required Specialty Diagnoses / Procedures Referred By Kayla goodman Referred To Contact Nuclear Medicine Diagnoses Solitary pulmonary nodule Procedures PET CT EYE TO THIGH Eloina Brewer NP [address] [place] [address] Phone: tel: fax: [facility] Referral ID Status Reason Start Date Expiration Date Visits Requested Visits Authorized [id number] Authorization Not Required 09/26/2021 1 1 Encounter Details Date Type Department Care Team (Latest Contact Info) Description 10/26/2021 13:20 EDT - 10/26/2021 23:59 EDT Hospital Encounter [facility] Radiology [place] [address] Solitary pulmonary nodule Discharge Disposition: Home or [...] the IV injection of 9.3 mCi of [id number], 3D TOF PET imaging was obtained from the skull base to upper thighs using a Rain digital ??PET/CT system. ??The blood glucose level [...] following the IV injection of 9.3 mCi [id number], 3D TOF PET imaging was obtained from the skullbase to upper thighs using a Rain digital PET/CT system. Theblood glucose level prior [...] 70 - 100 mg/dL 10/29/2021 7:34 EDT [facility] HN LAB POC COMMENT (GLUCOSE) Test Performed by Nursing Services 10/29/2021 7:34 EDT [facility] Blood CAPILLARY BLOOD / Unknown 10/26/2021 13:53 EDT 10/29/2021 7:34 EDT us Provider Unknown MD POINT OF CARE TEST ORDERABLE S Final Result [facility] [address] [place] [address] documented in this encounter Visit Diagnoses Diagnosis [...] 10/26/2021 documented in this encounter Care Teams Legislative Assistant Relationship Specialty Start Date End Date Eloina Brewer NP [address] [place] [address] [address] [place] [address] PCP - General 10/16/20 documented as of this encounter
--- OUTSIDE RECORDS SUMMARY | 2024-05-24 19:24 | XMS_ITS | Encounter Summary ---
Author Organization [facility] Address [address] [place] [address] Care Team Providers Care Nutrition Coordinator Name Role Phone Eloina Brewer PAPERBOARD BOX MAKER Primary Care Provider [phone] Encounter Details Date Type Department Care Team (Late st Contact Info) Description 11/04/2022 Lab Requisition [facility] Pathology & Laboratory Medicine - [address] [address] Outr Resulting Lab, Provider Social History Tobacco [...] Antigen Detection Negative Negative 11/04/2022 22:26 EDT [facility] Urine URINE / Unknown 11/04/2022 3 :00 EDT 11/04/2022 16:53 EDT us Provider Outr Resulting Lab MICROBIOLOGY - GENER AL ORDERABLES Final Result [facility] [address] [place] [address] documented in this encounter Visit Diagnoses Not on filedocumented in this encounter Care Teams Nutrition Coordinator Relationship Specialty Start Date End Date Eloina Brewer NP [address] [place] [address] PCP - General 10/16/20 documented as of this encounter
--- OUTSIDE RECORDS SUMMARY | 2024-05-24 19:24 | XMS_ITS | Encounter Summary ---
Author Organization [facility] Address [address] [place] [address] Care Team Providers Care Changeover Operator Name Role Phone Eloina Brewer FOUNDATION RELATIONS MANAGER Primary Care Provider [phone] Encounter Details Date Type Department Care Team [...] on filedocumented in this encounter Care Teams Changeover Operator Relationship Specialty Start Date End Date Eloina Brewer NP [address] [facility] [address] [place] [phone] PCP - General 10/16/20 documented as of this encounter
--- OUTSIDE RECORDS SUMMARY | 2024-05-24 19:24 | XMS_ITS | Encounter Summary ---
Author Organization [facility] Address [address] [place] [address] Care Team Providers Care Center Medical And Lab Director Name Role Phone Eloina Brewer BUCK SWAMPER Primary Care Provider Encounter Details Date Type [...] on filedocumented in this encounter Care Teams Center Medical And Lab Director Relationship Specialty Start Date End Date Eloina Brewer NP [address] [facility] [address] [place] [phone] PCP - General 10/16/20 documented as of this encounter
--- OUTSIDE RECORDS SUMMARY | 2024-05-24 19:24 | XMS_ITS | Encounter Summary ---
Author Organization [facility] Address [address] [place] [address] Care Team Providers Care Auto Body Repairer Name Role Phone Eloina Brewer ROTATING EQUIPMENT ENGINEER Primary Care Provider [phone] Reason for Visit * Reason Comments Dementia [...] Expiration Date Visits Re quested Visits Authorized [id number] 1 1 Encounter Details Date Type Department Care Team (Late st Contact Info) Description 12/15/2021 14:28 EDT - 12/15/2021 20:15 EDT Emergency [facility] Emergency Department - [facility] [address] [place], [place] [id number] Alo Martinez, PA-C [address] [facility] [place] [address] Dementia associated with other underlying [...] use once during the day as needed. health services director is working on a plan for housing [...] Code Departure Means Destination Home or Self Prison documented in this encounter Progress Notes * Agatha Kumar - 12/15/2021 191 EDT [facility] Note Met with patient and her daughter, [...] to work with provider Eloina Brewer in [facility] which has been tough given distance. She also confirms that as such, she is not connected with a daycare teacher through a local PC and has not had any support in seeking a fci care bed at a SNF. I did [...] cn discuss with LOS Martinez. --Agatha Kumar HEALTH EQUIPMENT SERVICER foster care social worker documented in this encounter ED Notes * [...] tearful. * Alo Martinez PA-C - 12/15/2021 7373 EDT Images from the original note were [...] hoping to get her mother into a fpc. She does have an appointment coming up with aging well, social scientist was involved with this case and spent a large amount of time with both patient and daughter at this time beinga Friday night it would be impossible to get her into a fpc social scientist will stay involved with her. The daughter [...] since September. They have been looking for fpc placement though the patient does not want [...] Abnormality Status --------- ------ POCT URINE DIPSTICK, CLI...[[id number]] Abnormal Final result POCT CSN BARCODE URINE D...[[id number]] Final result Please view results for these [...] in tears when discussing mother's situation with investigative writer. She states that she just cannot take care of her mother any more and she has done everything she possibly can for her, yet she just keeps declining. Pt is calm and cooperative with investigative writer though is argumentative with her daughter. She tells investigative writer that the daughter is the problem. [...] 15:18 EDT) Hold Hold 12/15/2021 16:30 EDT [facility] Blood VENOUS BLOOD / Unknown Venipuncture / Unknown 12/15/2021 15:18 EDT 12/15/2021 15:21 EDT us Alo Martinez PA-C LAB INFO SERVICE AND SUPPORT & PHONE RESULT Final Result Performing Organization Address [facility]/ZIP Co de Phone Number [facility] [address] [place] [address] * HOLD BLUE TOP (12/15/2021 15:18 EDT) Hold Hold 12/15/2021 16:30 EDT [facility] Blood VENOUS BLOOD / Unknown Venipuncture / Unknown 12/15/2021 15:18 EDT 12/15/2021 15:21 EDT Alo Martinez PA-C LAB INFO SERVICE AND SUPPORT & PHONE RESULT Final Result Performing Organization Address City/[facility]/ZIP Co de Phone Number [facility] [address] [place] [address] * (ABNORMAL) COMPREHENSIVE METABOLIC PANEL (CMP) (12/15/2021 15:18 EDT) Sodium 142 136 - 145 mmol/L 12/15/2021 15:53 EDT [facility] Potassium 4.5 3.5 - 5.0 mmol/L 12/15/2021 15:53 EDT [facility] Chloride 102 96 - 110 mmol/L 12/15/2021 15:53 EDT [facility] CO2 Total 23 22 - 32 mmol/L 12/15/2021 15:53 EDT [facility] Glucose 111(H) 70 - 100 mg/dL 12/15/2021 15:53 [facility] BUN 22 10 - 26 mg/dL 12/15/2021 15:53 [facility] Creatinine 1.20(H) 0.52 - 1.04 mg/dL 12/15/2021 15:53 [facility] eGFR 44(L) >60 mL/min/1.7 3m2 12/15/2021 15:53 [facility] Total Protein 7.3 6.3 - 8.2 g/dL 12/15/2021 15:53 [facility] Albumin 4.2 3.4 - 4.9 g/dL 12/15/2021 15:53 [facility] Alkaline Phosphatase 96 38 - 126 U/L 12/15/2021 15:53 [facility] AST 21 15 - 46 U/L 12/15/2021 15:53 [facility] ALT 9 <35 U/L 12/15/2021 15:53 [facility] Bilirubin, Total 0.5 <1.4 mg/dL 12/16/19 15:53 [facility] Calcium 9.4 8.5 - 10.5 mg/dL 12/15/2021 15:53 [facility] Albumin/Globulin Ratio 1.4 1.0 - 2.5 12/15/2021 15:53 [facility] Anion Gap 17(H) 5 - 14 12/15/2021 15:53 [facility] Blood VENOUS BLOOD / Unknown Venipuncture / Unknown 12/15/2021 15:18 EDT 12/15/2021 15:21 EDT us Alo Martinez PA-C CHEMISTRY & BLOOD GAS ORDERAB LES Final Result [facility] [address] [place] [address] * POCT CSN BARCODE URINE DIPSTICK (12/15/2021 15:17 EDT) Urine URINE SPECIMEN COLLECTION, CLEAN CATCH / Unknown Urine Collect / Unknown 12/15/2021 15:17 EDT 12/15/2021 15:17 EDT us Alo Martinez PA-C LAB INFO SERVICE AND SUPPORT & PHONE RESULT Final Result [facility] [address] [place] [address] * (ABNORMAL) COMPLETE BLOOD COUNT AND DIFFERENTIAL (12/15/2021 15:17 EDT) WBC 9.27 4.00 - 12.40 K/cmm 12/15/2021 15:30 [facility] RBC 4.42 3.86 - 5.04 M/cmm 12/15/2021 15:30 [facility] Hemoglobin 13.2 11.6 - 15.2 gm/dL 12/15/2021 15:30 [facility] HCT 39.3 34.9 - 44.4 % 12/15/2021 15:30 [facility] MCV 89 81 - 98 fl 12/15/2021 15:30 [facility] MCH 29.9 26.7 - 33.3 pg 12/15/2021 15:30 [facility] MCHC 33.6 32.1 - 35.9 gm/dL 12/15/2021 15:30 [facility] RDW-CV 14.2 <14.7 % 12/15/2021 15:30 [facility] RDW-SD 45.7 <50.4 fl 12/15/2021 15:30 [facility] PLT 219 141 - 377 K/cmm 12/15/2021 15:30 [facility] MPV 11.0 9.5 - 12.7 fl 12/15/2021 15:30 [facility] % Neutrophils 75.1 % 12/15/2021 15:30 [facility] % Lymphocytes 17.4 % 12/15/2021 15:30 [facility] % Monocytes 6.0 % 12/15/2021 15:30 T [facility] % Eosinophils 0.2 % 12/15/2021 15:30 [facility] % Basophils 0.5 % 12/15/2021 15:30 [facility] % Immature Grans 0.8 % 12/16/19 15:30 [facility] Absolute Neutrophils 6.96 2.20 - 8.85 K/cmm 12/15/2021 15:30 [facility] Absolute Lymphocytes 1.61 1.09 - 3.30 K/cmm 12/15/2021 15:30 [facility] Absolute Monocytes 0.56 0.10 - 0.80 K/cmm 12/15/2021 15:30 [facility] Absolute Eosinophils 0.02(L) 0.03 - 0.61 K/cmm 12/15/2021 15:30 [facility] ABS Basophils 0.05 0.01 - 0.11 K/cmm 12/15/2021 15:30 [facility] Absolute Immature Grans 0.07(H) 0.00 - 0.06 K/cmm 12/15/2021 15:30 [facility] Type of Differential: Auto 12/15/2021 15:30 [facility] Blood VENOUS BLOOD / Unknown Venipuncture / Unknown 12/15/2021 15:17 EDT 12/15/2021 15:21 EDT us Alo Martinez PA-C PACKAGES & DNA PROBE ORDERABL ES Final Result [facility] [address] [place] [address] * (ABNORMAL) POCT URINE DIPSTICK, CLINITEK (12/15/2021 15:01 EDT) Color, UA Yellow Yellow 12/15/2021 15:03 [facility] Clarity, UA Clear Clear 12/15/2021 15:03 EDT [facility] Glucose, UA Negative Negative 12/15/2021 15:03 [facility] Bilirubin, UA Negative Negative 12/15/2021 15:03 [facility] Ketones, UA 1+(A) Negative 12/15/2021 15:03 [facility] Specific [place], Urine 1.020 1.001 - 1.035 12/15/2021 15:03 [facility] Blood, UA Negative Negative 12/15/2021 15:03 [facility] pH, UA 5.5 4.6 - 8.0 12/15/2021 15:03 [facility] Protein, UA Negative Negative 12/15/2021 15:03 [facility] Urobilinogen, UA 0.2 0.2 - 1.0 mg/dL 12/15/2021 15:03 [facility] Nitrite, UA Negative Negative 12/15/2021 15:03 [facility] Leuk Esterase Trace(A) Negative 12/15/2021 15:03 [facility] HN LAB COMMENT (CLINITEK, UR) Test performed at Emergency Department 12/15/2021 15:03 [facility] Urine URINE SPECIMEN COLLECTION, CLEAN CATCH / Unknown 12/15/2021 15:01 EDT 12/15/2021 15:03 EDT Alo Martinez PA-C POINT OF CARE TEST ORDERABLES Final Result [facility] [address] [place] [address] documented in this encounter Visit Diagnoses Diagnosis Dementia associated with other underlying disease with behavioral disturbance ([facility])- Primary Primary hypertension Unspecified essential hypertension documented [...] RN) documented in this encounter Care Teams Auto Body Repairer Relationship Specialty Start Date End Date Eloina Brewer NP [address] [place] [address] [address] [place] [phone] PCP - General 10/16/20 documented as of this encounter
--- OUTSIDE RECORDS SUMMARY | 2024-05-24 19:24 | XMS_ITS | Encounter Summary ---
Author Organization [facility] Address [address] [place] [address] Care Team Providers Care Procurement Technician Name Role Phone Eloina Brewer LICENSED AND CERTIFIED MIDWIFE Primary Care Provider [phone] Reason for Referral * Radiology Services (Routine/Next Available) - Authorization Not Required Specialty Diagnoses / Procedures Referred By Contac t Referred To Contact Diagnoses Solitary pulmonary nodule Procedures CT CHEST WO CONTRAST Alexus Mcintosh MD Phone: tel: fax: [facility] Referral ID Status Reason Start Date Expiration Date Visits Requested Visits Authorized [id number] Authorization Not Required 11/08/2021 1 1 Reason for Visit * Radiology Services (Routine/Next Available) - Authorization Not Required Specialty Diagnoses / Procedures Referred By Kayla goodman Referred To Contact Diagnoses Solitary pulmonary nodule Procedures CT CHEST WO CONTRAST Alexus Mcintosh MD Phone: tel: fax: [facility] Referral ID Status Reason Start Date Expiration Date Visits Requested Visits Authorized [id number] Authorization Not Required 11/08/2021 1 1 Encounter Details Date Type Department Care Team (Latest Contact Info) Description 12/12/2021 11:59 EDT - 12/12/2021 23:59 EDT Hospital Encounter Mitzy Mooney CT [address] [place], [place] [id number] Solitary pulmonary nodule Discharge Disposition: Home or [...] nodule documented in this encounter Care Teams Procurement Technician Relationship Specialty Start Date End Date Eloina Brewer NP [address] [place], [place] [address] [address] [place] [phone] PCP - General 10/16/20 documented as of this encounter
--- OUTSIDE RECORDS SUMMARY | 2024-05-24 19:25 | XMS_ITS | Encounter Summary ---
Author Organization [facility] Address [address] [place] [address] Care Team Providers Care Menagerie Caretaker Name Role Phone Eloina Brewer RN LVN Primary Care Provider [phone] [phone] Encounter Details Date Type Department Care Team (Late st Contact Info) Description 09/26/2021 Orders Only [facility] Radiology - [place] [address] [place], [place] [phone] Lupis Mcclendon MD [address] [place] [address] Social History Tobacco Use Types [...] on filedocumented in this encounter Care Teams Menagerie Caretaker Relationship Specialty Start Date End Date Eloina Brewer NP [address] [place] [address] PCP - General 10/16/20 documented as of this encounter
--- OUTSIDE RECORDS SUMMARY | 2024-05-24 19:25 | XMS_ITS | Encounter Summary ---
Author Organization [facility] Address [address] [place] [address] Care Team Providers Care Metal Bonding Press Operator Name Role Phone Patricia Ulloa MD Primary Care Provider Reason for Visit * Reason Onset Date Comments Medical Records 09/06/2020 Med Rec Release Encounter Details Date Type Department Care Team (Late st Contact Info) Description 09/06/2020 Telephone [facility] Adult Primary Care - [address] [address] Patricia Ulloa MD [address] [place] [phone] Medical Records (Med Rec Release) Social [...] Telephone Encounter - Iqra Rodriges - 09/06/2020 8526 EDT Outgoing mail to Pt. Medical record release forms that must be signed. documented in this encounter Plan of Treatment Not on file documented as of this encounter Visit Diagnoses Not on filedocumented in this encounter Care Teams Metal Bonding Press Operator Relationship Specialty Start Date End Date Patricia Ulloa MD PCP - General Geriatric Medicine 08/31/20 10/15/20 documented as of this encounter
--- OUTSIDE RECORDS SUMMARY | 2024-05-24 19:25 | XMS_ITS | Encounter Summary ---
Author Organization [facility] Address [address] [place] [address] Care Team Providers Care Payroll Accounting Manager Name Role Phone Unavailable Primary Care [...]
--- OUTSIDE RECORDS SUMMARY | 2024-05-24 19:25 | XMS_ITS | Encounter Summary ---
Author Organization [facility] Address [address] [place] [address] Care Team Providers Care Appeals Nurse Name Role Phone Unavailable Primary Care Provider Unavailabl e Encounter Details Date Type Department Care Team (Late st Contact Info) Description 07/02/2007 Office Visit [facility] [address] [place] [address] Roderick Graves MD Social History Tobacco Use [...] pain. No headache or blackouts. PAST HISTORY Guillan-[place] Febrile sx as child El[place]. No history [...] (Daughter states pt seen x 3 in [facility] ED in past week for tremors and HTN, EKG nl x2. Told should see neurologist. Referred to ED by Dr Kumar (family friend not LMD) for neuroconsult in ED.). Pain level now: 0/10. (tremors worse at night, generalized weakness, lt neck/shoulder pain). PAST HX: (Guillian [place] 1966, pancreatis/gallbladder attack 1991, seizure, septicemia, essential [...] to the patient. Reviewed referral to an small boat engineer for followup. Patient verbalized understanding. Written instructions provided in Polish. The patient was discharged home and accompanied [...]
--- OUTSIDE RECORDS SUMMARY | 2024-05-24 19:25 | XMS_ITS | Encounter Summary ---
Author Organization [facility] Address [address] [place] [address] Care Team Providers Care Blood Typer Name Role Phone Patricia Ulloa MD Primary Care Provider Encounter Details Date Type Department Care Team (Latest Contact Info) Description 10/10/2020 Documentation Visit [facility] Adult Primary Care - [address] [phone] Patricia Ulloa MD [address] [place] [address] Hypertension, unspecified type; Amnesia; Tremor; [...] Abby Cordova - 10/10/2020 1153 EDT AGENCY: [facility] POC CERTIFICATION PERIOD: 09.06.20-11.04.20 DATE SIGNED: 09.20.20 CPT CODE: G0180 DX: i10 R41. R25.1 R53.1 E03.9 Scanned for reference documented in this encounter Plan of Treatment Not on file documented as of this encounter Visit Diagnoses Diagnosis Hypertension, unspecified type Amnesia Memory loss Tremor Abnormal involuntary movements Weakness generalized Other malaise and fatigue Primary hypothyroidism Unspecified hypothyroidism documented in this encounter Care Teams Blood Typer Relationship Specialty Start Date End Date Patricia Ulloa MD PCP - General Geriatric Medicine 08/31/20 10/15/20 documented as of this encounter
--- OUTSIDE RECORDS SUMMARY | 2024-05-24 19:25 | XMS_ITS | Encounter Summary ---
Author Organization [facility] Address [address] [place] [address] Care Team Providers Care Meat Blender Name Role Phone Eloina Brewer CENTRAL OFFICE EQUIPMENT ENGINEER Primary Care Provider +[phone] Encounter Details Date Type Department Care Team (Latest Contact Info) Description 03/26/2021 10:00 EST Phlebotomy Only [facility] Laboratory Services - [address] [phone] Pre-diabetes; Hypertension, essential Social History Tobacco Use [...] 0.47 - 4.68 ??IU/mL 03/26/2021 12:06 EST [facility] Blood VENOUS BLOOD / Unknown Venipuncture / Unknown 03/26/2021 10:07 EST 03/26/2021 10:08 EST Narrative [facility] - 03/26/2021 12:06 EST The results of this assay can be falsely lowered due to the consumption of Biotin. [employer]lo[employer] CENTRAL OFFICE EQUIPMENT ENGINEER CHEMISTRY & BLOOD GAS ORDER GORDON Final Result [facility] [address] [place] [address] * (ABNORMAL) HEMOGLOBIN A1C (03/26/2021 10:07 EST) Hemoglobin A1c 5.9(H) <5.7 % 03/26/2021 13:39 [facility] Comment: Glycemic Status References: Normal: ??<5.7% Pre-Diabetes: ??5.7% - 6.4% Diagnostic of Diabetes: ??> or = 6.5% (if confirmed) Est Avg Glucose 123 mg/dL 13:39 EST [facility] Comment:The eAG represents t he A1c result expressed as average glucose in mg/dL. Blood VENOUS BLOOD / Unknown Venipuncture / Unknown 03/26/2021 10:07 EST 03/26/2021 10:08 EST [employer] CENTRAL OFFICE EQUIPMENT ENGINEER CHEMISTRY & BLOOD GAS ORDER GORDON Final Result [facility] [address] [place] [address] documented in this encounter Visit Diagnoses Diagnosis Pre-diabetes Other abnormal glucose Hypertension, essential Unspecified essential hypertension documented in this encounter Care Teams Meat Blender Relationship Specialty Start Date End Date Eloina Brewer NP [address] [place] [phone] PCP - General 10/16/20 documented as of this encounter
--- OUTSIDE RECORDS SUMMARY | 2024-05-24 19:25 | XMS_ITS | Encounter Summary ---
Author Organization [facility] Address [address] [place] [address] Care Team Providers Care Director Agricultural Services Name Role Phone Camila Moreland MD Primary Care Provider [phone] Reason for Visit * Reason Comments Altered [...] 18:03 EST - 04/25/2019 22:18 EST Emergency [facility] Emergency Department - [address] [phone] Kenny Birmingham MD [address] [place] [address], [address] [place] [address] Non-intractable vomiting with nausea, unspecified [...] Code Departure Means Destination Home or Self [facility] documented in this encounter ED Notes * [...] exam for emergent medical conditions at the [facility] on 04/25/2019 Scribe attestation: This documentation [...] took the patient out to see the Streetcar, the patient normally becomes car sick and [...] saw something green come out of the [employer] tree and move up in the air. [...] deficits. Differential is broad and would include PAINTER INTERIOR FINISH process such as mass/stroke versus medication side [...] ER. I recommended continued close observation at [facility], return for recurrence, worsening or any other [...] Abnormality Status --------- ------ POCT URINE DIPSTICK, CLINITEK[[id number]] POCT CSN BARCODE URINE DIP...[[id number]] Please view results for these tests on [...] 05/04/2019 14:0 7 EST us Scan 2 Corner Brace Block Machine Operator PROCEDURE/MINOR SURGICAL OR DERABLES Final Result * (ABNORMAL) COMPLETE BLOOD COUNT AND DIFFERENTIAL (04/25/2019 19:26 EST) WBC 8.81 4.00 - 12.40 K/cmm 04/25/2019 19:42 [facility] RBC 5.03 3.86 - 5.04 M/cmm 04/25/2019 19:42 [facility] Hemoglobin 14.7 11.6 - 15.2 gm/dL 04/25/2019 19:42 [facility] HCT 46.3(H) 34.9 - 44.4 % 04/25/2019 19:42 [facility] MCV 92 81 - 98 fl 04/25/2019 19:42 [facility] MCH 29.2 26.7 - 33.3 pg 04/25/2019 19:42 [facility] MCHC 31.7(L) 32.1 - 35.9 gm/dL 04/25/2019 19:42 [facility] RDW-CV 14.6 <14.7 % 04/25/2019 19:42 [facility] RDW-SD 49.3 <50.4 fl 04/25/2019 19:42 [facility] PLT 182 141 - 377 K/cmm 04/25/2019 19:42 [facility] MPV 11.6 9.5 - 12.7 fl 04/25/2019 19:42 [facility] % Neutrophils 69.5 % 04/25/2019 19:42 [facility] % Lymphocytes 19.5 % 04/25/2019 19:42 [facility] % Monocytes 7.5 % 04/25/2019 19:42 [facility] % Eosinophils 2.4 % 04/25/2019 19:42 [facility] % Basophils 0.6 % 04/25/2019 19:42 [facility] % Immature Grans 0.5 % 04/25/20 19:42 [facility] Absolute Neutrophils 6.13 2.20 - 8.85 K/cmm 04/25/2019 19:42 [facility] Absolute Lymphocytes 1.72 1.09 - 3.30 K/cmm 04/25/2019 19:42 [facility] Absolute Monocytes 0.66 0.10 - 0.80 K/cmm 04/25/2019 19:42 [facility] Absolute Eosinophils 0.21 0.03 - 0.61 K/cmm 04/25/2019 19:42 [facility] ABS Basophils 0.05 0.01 - 0.11 K/cmm 04/25/2019 19:42 [facility] Absolute Immature Grans 0.04 0.00 - 0.06 K/cmm 04/25/2019 19:42 [facility] Type of Differential: Auto 04/25/2019 19:42 [facility] Blood VENOUS BLOOD / Unknown Venipuncture / Unknown 04/25/2019 19:26 EST 04/25/2019 19:32 EST us Kenny Birmingham MD PACKAGES & DNA PROBE ORDERABLE S Final Result [facility] [address] [place] [address] * (ABNORMAL) COMPREHENSIVE METABOLIC PANEL (CMP) (04/25/2019 19:25 EST) Sodium 140 136 - 145 mEq/L 04/25/2019 19:49 [facility] Potassium 4.5 3.5 - 5.0 mEq/L 04/25/2019 19:49 [facility] Chloride 104 96 - 110 mEq/L 04/25/2019 19:49 [facility] CO2 Total 27 22 - 32 mEq/L 04/25/2019 19:49 [facility] Glucose 115(H) 70 - 100 mg/dL 04/25/2019 19:49 [facility] BUN 32(H) 10 - 26 mg/dL 04/25/2019 19:49 [facility] Creatinine 0.81 0.52 - 1.04 mg/dL 04/25/2019 19:49 [facility] eGFR 68 >60 mL/min/1.7 3m2 04/25/2019 19:49 [facility] Comment:eGFR calculated gia moreno CKD-EPI equation for non- Americans. Multiply eGFR by 1.16 for patients. Total Protein 7.4 6.3 - 8.2 g/dL 04/25/2019 19:49 [facility] Albumin 4.3 3.4 - 4.9 g/dL 04/25/2019 19:49 [facility] Alkaline Phosphatase 139(H) 38 - 126 U/L 04/25/2019 19:49 [facility] AST 23 15 - 46 U/L 04/25/2019 19:49 [facility] ALT 14 <35 U/L 04/25/2019 19:49 [facility] Bilirubin, Total <0.5 <1.4 mg/dL 04/25/20 19:49 [facility] Calcium 9.7 8.5 - 10.5 mg/dL 04/25/2019 19:49 [facility] Calculated Calcium 9.5 8.5 - 10.5 mg/dL 04/25/2019 19:49 [facility] Blood VENOUS BLOOD / Unknown Venipuncture / Unknown 04/25/2019 19:25 EST 04/25/2019 19:32 EST us Kenny Birmingham MD CHEMISTRY & BLOOD GAS ORDERABL ES Final Result Performing Organization Address City/State/[facility] Co de Phone Number [facility] [address] [place] [address] * CT HEAD WO CONTRAST (04/25/2019 18:47 [...] 18:18 EST) 04/25/2019 18:1 8 EST Narrative [facility] EKG - 05/04/2019 14:02 EST ?[facility] Emergency ? Test Date: ?2019-04-25 Pat Name: ? JOSELO THORNTON ? Department: ?? ED ? Room: ? Gender: ? Female ? Inside Sales Person: ?? [id number] : ?1935 ? Requested By: KELLI Styles Order Number: [id number] ? Erica MD: ?? PRISCILLA VICENTE MD ? Measurements Intervals ?[place] ? Rate: ? 48 ? P: ?34 TN: ? 184 ?QRS: ?32 QRSD: ? 90 ? T: ?48 QT: ? 455 ? QTc: ?407 ? Interpretive Statements SINUS BRADYCARDIA No previous ECG available for comparison I reviewed the tracing and have either agreed or edited the findings in this report. Electronically Signed On 05-04-2019 14:02:01 EST by PRISCILLA VICENTE MD. Procedure Note Priscilla Vicente MD - 05/04/2019 [facility] Emergency Test Date: 2019-04-25 Pat Name: JOSELO THORNTON Department: ED Room: Gender: Female Inside Sales Person: [id number] : [id number] Requested By: KELLI Styles Order Number: [id number] Reading MD: PRISCILLA VICENTE MD Measurements Intervals [place] Rate: 48 P: 34 TN: 184 QRS: 32 QRSD: 90 T: 48 QT: 455 QTc: 407 Interpretive Statements SINUS BRADYCARDIA No previous ECG available for comparison I reviewed the tracing and have either agreed or edited the findings inthis report. Electronically Signed On 05-04-2019 14:02:01 EST by LEONA KIDD. us Salome Hummel MD MPH CARDIAC ECG ORDERABLES Final Result [facility] EKG documented in this encounter [...] 04/25/2019 documented in this encounter Care Teams Director Agricultural Services Relationship Specialty Start Date End Date Camila Moreland MD [address] [place] [address] PCP - General 03/10/15 07/02/20 documented as of this encounter
--- OUTSIDE RECORDS SUMMARY | 2024-05-24 19:25 | XMS_ITS | Encounter Summary ---
Author Organization [facility] Address [address] [place] [address] Care Team Providers Care Yard Hostler Name Role Phone Patricia Ulloa MD Primary Care Provider Reason for Visit * Reason Onset Date Comments Home Health 09/06/2020 Encounter Details Date Type Department Care Team (Late st Contact Info) Description 09/06/2020 Telephone [facility] Adult Primary Care - [address] [phone] Patricia Ulloa MD [address] [place] [phone] Home Health Social History Tobacco Use [...] on filedocumented in this encounter Care Teams Yard Hostler Relationship Specialty Start Date End Date Patricia Ulloa MD PCP - General Geriatric Medicine 08/31/20 10/15/20 documented as of this encounter
--- OUTSIDE RECORDS SUMMARY | 2024-05-24 19:25 | XMS_ITS | Encounter Summary ---
Author Organization [facility] Address [address] [place] [address] Care Team Providers Care Fishing Rod Assembler Name Role Phone Eloina Brewer NP Primary Care Provider [phone] Patricia Nails MD Primary Care Provider Reason for Visit * Reason Onset Date Comments Hypertension 10/05/2020 Encounter Details Date Type Department Care Team (Late st Contact Info) Description 10/05/2020 Telephone [facility] Adult Primary Care - [address] [phone] Patricia Nails MD [address] [place] [phone] Hypertension Social History Tobacco Use Types [...] daughter Yris. Patient has moved back to [place]. She has an appointment there and will be receiving care from [facility]. They will follow up and make [...] message sent to Home health and hospice [facility] with Dr. nails's plan from today at [...] on filedocumented in this encounter Care Teams Fishing Rod Assembler Relationship Specialty Start Date End Date Eloina Brewer NP [address] [place] [phone] PCP - General 10/16/20 Patricia Nails MD [address] [place] [phone] PCP - General Geriatric Medicine 08/31/20 10/15/20 documented as of this encounter
--- OUTSIDE RECORDS SUMMARY | 2024-05-24 19:25 | XMS_ITS | Encounter Summary ---
Author Organization [facility] Address [address] [place] [address] Care Team Providers Care Can Dryer Name Role Phone Unavailable Primary Care Provider Unavailabl e Encounter Details Date Type Department Care Team (Late st Contact Info) Description 08/03/2020 Abstract [facility] Adult Primary Care - [address] [place] [address] Patricia Ulloa MD [address] [place] [phone] Social History Tobacco Use Types Packs/Day [...]
--- OUTSIDE RECORDS SUMMARY | 2024-05-24 19:25 | XMS_ITS | Encounter Summary ---
Author Organization [facility] Address [address] [place] [address] Care Team Providers Care Resin Mixer Name Role Phone Unavailable Primary Care Provider Unavailabl e Encounter Details Date Type Department Care Team (Latest Contact Info) Description 08/01/2020 10:00 EDT Phlebotomy Only [facility] Laboratory Services - [facility] ([facility] [address] [place] [address] Health examination in population survey [...] 5.0 mEq/L 08/01/2020 12:35 EDT [facility] Blood VENOUS BLOOD / Unknown Venipuncture / Unknown 08/01/2020 10:30 EDT 08/01/2020 10:31 EDT us Eloina Brewer NP CHEMISTRY & BLOOD GAS ORDER GORDON Final Result [facility] [address] [place] [address] * (ABNORMAL) HEMOGLOBIN A1C (08/01/2020 10:30 EDT) Hemoglobin A1c 5.7(H) <5.7 % 08/01/2020 15:10 EDT [facility] Comment: Glycemic Status References: [...] Glucose 117 mg/dL 15:10 EDT [facility] Comment:The eAG represents t he A1c result expressed as average glucose in mg/dL. Blood VENOUS BLOOD / Unknown Venipuncture / Unknown 08/01/2020 10:30 EDT 08/01/2020 10:31 EDT us Eloina L Imperio CABINET WORKER CHEMISTRY & BLOOD GAS ORDER GORDON Final Result Performing Organization Address [facility] Co de Phone Number [facility] [address] [place] [address] * (ABNORMAL) CREATININE (08/01/2020 10:30 EDT) Creatinine 1.09(H) 0.52 - 1.04 mg/dL 08/01/2020 12:35 EDT [facility] eGFR 47(L) >60 mL/min/1.7 3m2 08/01/2020 12:35 EDT [facility] Comment:eGFR calculated gia moreno CKD-EPI equation for non- Americans. Multiply eGFR by 1.16 for patients. Blood VENOUS BLOOD / Unknown Venipuncture / Unknown 08/01/2020 10:30 EDT 08/01/2020 10:31 EDT us Eloina L Imperio CABINET WORKER CHEMISTRY & BLOOD GAS ORDER GORDON Final Result Performing Organization Address [facility] Co de Phone Number [facility] [address] [place] [address] * (ABNORMAL) TSH (08/01/2020 10:30 EDT) TSH 6.66(H) 0.47 - 4.68 uIU/mL 08/01/2020 13:08 EDT [facility] Blood VENOUS BLOOD / Unknown Venipuncture / Unknown 08/01/2020 10:30 EDT 08/01/2020 10:31 EDT Narrative [facility] - 08/01/2020 13:08 EDT The results of this assay can be falsely lowered due to the consumption of Biotin. us Eloina Brewer NP CHEMISTRY & BLOOD GAS ORDER GORDON Final Result [facility] [address] [place] [phone] documented in this encounter Visit Diagnoses Diagnosis Health examination in population survey- Primary documented in this encounter
--- OUTSIDE RECORDS SUMMARY | 2024-05-24 19:25 | XMS_ITS | Encounter Summary ---
Author Organization [facility] Address [address] [place] [address] Care Team Providers Care Burr Sander Name Role Phone Unavailable Primary Care Provider Unavailabl e Encounter Details Date Type Department Care Team (Latest Contact Info) Description 07/02/2007 11:12 EST - 07/02/2007 11:59 EST Hospital Encounter [facility] Emergency Department - [address] [address] Emergency, Default, MD Discharge Disposition: Home or [...] ORDERA BLES Final Result Performing Organization Address [facility] Phone Number [facility] [address] [place] [address] * TROPONIN I (07/02/2007 13:00 EST) [facility] Troponin I pre 2011 <0.05 ng/ml [facility] Comment: Reference Range: Normal: ??Less than 0.05 Indeterminate: ??0.05-0.80 Positive: ??Greater than 0.80 07/02/2007 13:0 0 EST 07/02/2007 13:31 EST Default Emergency MD CHEMISTRY & BLOOD GAS ORDER GORDON Final Result Performing Organization Address [facility] Phone Number [facility] [address] [place] [address] * (ABNORMAL) GLUCOSE, SERUM (07/02/2007 13:00 EST) [facility] Glucose, Serum 116(H) 70 - 100 mg/dl [facility] 07/02/2007 13:0 0 EST 07/02/2007 13:31 EST Default Emergency CHEMISTRY & BLOOD GAS ORDER GORDON Final Result Performing Organization Address [facility] Phone Number [facility] [address] [place] [address] * ELECTROLYTES (07/02/2007 13:00 EST) [facility] Sodium 145 136 - 145 mEq/L [facility] Potassium 4.4 3.5 - 5.0 mEq/L [facility] Chloride 103 96 - 110 mEq/L [facility] CO2 28 24 - 32 mEq/L [facility] 07/02/2007 13:0 0 EST 07/02/2007 13:31 EST Default Emergency CHEMISTRY & BLOOD GAS ORDER GORDON Final Result [facility] [address] [place] [address] * CREATININE (07/02/2007 13:00 EST) Creatinine 0.70 0.7 - 1.5 mg/dl [facility] GFR, Calculated >60 ml/min/1.7 3m2 [facility] 07/02/2007 13:0 0 EST 07/02/2007 13:31 EST us Default Emergency MD CHEMISTRY & BLOOD GAS ORDER GORDON Final Result Performing Organization Address [facility] Co de Phone Number [facility] [address] [place] [address] * BUN (07/02/2007 13:00 EST) BUN 25 10 - 26 mg/dl [facility] 07/02/2007 13:0 0 EST 07/02/2007 13:31 EST us Default Emergency MD CHEMISTRY & BLOOD GAS ORDER GORDON Final Result Performing Organization Address City/[facility] Co de Phone Number [facility] [address] [place] [address] documented in this encounter Visit Diagnoses Not on filedocumented in this encounter
--- OUTSIDE RECORDS SUMMARY | 2024-05-24 19:25 | XMS_ITS | Encounter Summary ---
Author Organization [facility] Address [address] [place] [address] Care Team Providers Care Bulk Loader Name Role Phone Eloina Brewer NP Primary Care Provider [phone] Patricia Ulloa MD Primary Care Provider Reason for Visit * Reason Onset Date Comments Medical Records 08/30/2020 Encounter Details Date Type Department Care Team (Late st Contact Info) Description 08/30/2020 Telephone [facility] Adult Primary Care - [address] [address] Patricia Ulloa MD [address] [place] [phone] Medical Records Social History Tobacco Use [...] 1310 EDT Outgoing call to Eloina Brewer WOVEN PAPER HAT MENDER, [facility] release signed and faxed apprx one month ago. We have not yet received anything. documented in this encounter Plan of Treatment Not on file documented as of this encounter Visit Diagnoses Not on filedocumented in this encounter Care Teams Bulk Loader Relationship Specialty Start Date End Date Eloina Brewer NP [address] [place] [phone] PCP - General 10/16/20 Patricia Ulloa MD [address] [place] [phone] PCP - General Geriatric Medicine 08/31/20 10/15/20 documented as of this encounter
--- OUTSIDE RECORDS SUMMARY | 2024-05-24 19:25 | XMS_ITS | Encounter Summary ---
Author Organization [facility] Address [address] [place] [address] Care Team Providers Care Funeral Planning Counselor Name Role Phone Eloina Brewer GRAPE GROWER Primary Care Provider [phone] Encounter Details Date Type Department Care Team (Late st Contact Info) Description 09/22/2021 Lab Requisition [facility] Pathology & Laboratory Medicine - [address] [address] Outr Resulting Lab, Provider Social History Tobacco [...] Priority Date/Time Associated Diagnosis Comments JJD-19 TEST [facility] PCR Today 09/22/2021 20:05 EDT COVID-19 TESTING Routine 09/22/2021 20:0 5 EDT documented in this encounter Results * COVID-19 TEST [facility] PCR (09/22/2021 20:05 EDT) Swab 09/22/2021 20:0 5 EDT 09/23/2021 16:27 EDT us Provider Outr Resulting Lab MICROBIOLOGY - GENER AL ORDERABLES Final Result [facility] [address] [place] [address] * COVID-19 TESTING (09/22/2021 20:05 EDT) COVID-19 rt-PCR Result Negative Negative 09/24/2021 12:15 EDT [facility] Comment: This test has [...] performed using the elizabeth SARS-CoV-2 assay ([employer] on the Elizabeth 6800 System Performing Lab Elizabeth [address] [facility] 09/24/2021 12:15 EDT [facility] Swab 09/22/2021 20:0 5 EDT 09/23/2021 16:27 EDT us Provider Outr Resulting Lab MICROBIOLOGY - GENER AL ORDERABLES Final Result [facility] [address] [place] [address] documented in this encounter Visit Diagnoses Not on filedocumented in this encounter Care Teams Funeral Planning Counselor Relationship Specialty Start Date End Date Eloina Brewer NP [address] [place] [phone] PCP - General 10/16/20 documented as of this encounter
--- OUTSIDE RECORDS SUMMARY | 2024-05-24 19:25 | XMS_ITS | Encounter Summary ---
Author Organization [facility] Address [address] [place] [address] Care Team Providers Care Affirmative Action Officer Name Role Phone Patricia Ulloa MD Primary Care Provider Encounter Details Date Type Department Care Team (Late st Contact Info) Description 09/19/2020 Orders Only [facility] Adult Primary Care - [address] [phone] Patricia Ulloa MD [address] [place] [phone] Social History Tobacco Use Types [...] documented as of this encounter Care Teams Affirmative Action Officer Relationship Specialty Start Date End Date Patricia Ulloa MD PCP - General Geriatric Medicine 08/31/20 10/15/20 documented as of this encounter
--- OUTSIDE RECORDS SUMMARY | 2024-05-24 19:25 | XMS_ITS | Encounter Summary ---
Author Organization [facility] Address [address] [place] [address] Care Team Providers Care Loop Drier Operator Name Role Phone Patricia Ulloa MD Primary Care Provider Reason for Visit * Reason Onset Date Comments Appointment Related 09/13/2020 Encounter Details Date Type Department Care Team (Late st Contact Info) Description 09/13/2020 Telephone [facility] Adult Primary Care - [address] [phone] Patricia Ulloa MD [address] [place] [phone] Appointment Related Social History Tobacco Use [...] on filedocumented in this encounter Care Teams Loop Drier Operator Relationship Specialty Start Date End Date Patricia Ulloa MD PCP - General Geriatric Medicine 08/31/20 10/15/20 documented as of this encounter
--- OUTSIDE RECORDS SUMMARY | 2024-05-24 19:25 | XMS_ITS | Encounter Summary ---
Author Organization [facility] Address [address] [place] [address] Care Team Providers Care Scuba Instructor Name Role Phone Unavailable Primary Care Provider Unavailabl e Reason for Visit * Reason Onset Date Comments Paperwork request 08/03/2020 NPV Packet Encounter Details Date Type Department Care Team (Late st Contact Info) Description 08/03/2020 Telephone [facility] Adult Primary Care - [address] [address] Patircia Ulloa MD [address] [place] [phone] Paperwork request (NPV Packet) Social [...]
--- OUTSIDE RECORDS SUMMARY | 2024-05-24 19:25 | XMS_ITS | Encounter Summary ---
Author Organization [facility] Address [address] [place] [address] Care Team Providers Care Furniture Sales Associate Name Role Phone Patricia Ulloa MD Primary Care Provider Reason for Visit * Reason Onset Date Comments Other 09/15/2020 Living Will, DPO A Encounter Details Date Type Department Care Team (Late st Contact Info) Description 09/15/2020 Telephone [facility] Adult Primary Care - [address] [phone] Patricia Ulloa MD [address] [place] [phone] Other (Living Will, DPOA) Social History [...] on filedocumented in this encounter Care Teams Furniture Sales Associate Relationship Specialty Start Date End Date Patricia Ulloa MD PCP - General Geriatric Medicine 08/31/20 10/15/20 documented as of this encounter
--- OUTSIDE RECORDS SUMMARY | 2024-05-24 19:25 | XMS_ITS | Encounter Summary ---
Author Organization [facility] Address [address] [place] [address] Care Team Providers Care Field Merchandiser Name Role Phone Unavailable Primary Care Provider Unavailabl e Reason for Visit * Reason Onset Date Comments Medical Records 08/02/2020 Encounter Details Date Type Department Care Team (Late st Contact Info) Description 08/02/2020 Telephone [facility] Adult Primary Care - [address] [address] Patricia Ulloa MD [address] [place] [phone] Medical Records Social History Tobacco [...] * Telephone Encounter - Iqra Rodriges - 08/02/2020 0836 EDT Outgoing fax to Eloina Brewer's office. Medical record release form, requesting Pts medical records. documented in this encounter Plan of Treatment Not on file documented as of this encounter Visit Diagnoses Not on filedocumented in this encounter
--- OUTSIDE RECORDS SUMMARY | 2024-05-24 19:25 | XMS_ITS | Encounter Summary ---
Author Organization [facility] Address [address] [place] [address] Care Team Providers Care Lifts And Cranes Inspector Name Role Phone Patricia Redmond MD Primary Care Provider Reason for Visit * Reason Onset Date Comments Hypertension 09/21/2020 Encounter Details Date Type Department Care Team (Late st Contact Info) Description 09/21/2020 Telephone [facility] Adult Primary Care - [address] [phone] Patricia Redmond MD [address] [place] [phone] Hypertension Social History Tobacco Use Types [...] was placed at that time to the [place] office to report readings. Next scheduled visit 09/28. Sincerely, Belinda Lai construction helper [phone] Belinda Lai, RN Kezia Naranjo RN ?The only other recording is on 09/14 140/70 * Telephone Encounter - Kezia Naranjo RN - 09/26/2020 1129 EDT 09/26 @ 11:29 affiliate message sent to [facility] hosp[facility] requesting recent blood pressure readings. * [...] on filedocumented in this encounter Care Teams Lifts And Cranes Inspector Relationship Specialty Start Date End Date Patricia Redmond MD PCP - General Geriatric Medicine 08/31/20 10/15/20 documented as of this encounter
--- OUTSIDE RECORDS SUMMARY | 2024-05-24 19:25 | XMS_ITS | Encounter Summary ---
Author Organization [facility] Address [address] [place] [address] Care Team Providers Care Regional Dedicated Truck Driver Name Role Phone Eloina Brewer NP Primary Care Provider [phone] Encounter Details Date Type Department Care Team (Latest Contact Info) Description 03/07/2021 Transcribe Orders [facility] [phone] Eloina Brewer NP [address] [place] [address] Pre-diabetes (Primary Dx); Hypertension, essential Social History [...] 0.47 - 4.68 ??IU/mL 03/26/2021 12:06 EST [facility] Blood VENOUS BLOOD / Unknown Venipuncture / Unknown 03/26/2021 10:07 EST 03/26/2021 10:08 EST Narrative [facility] - 03/26/2021 12:06 EST The results of this assay can be falsely lowered due to the consumption of Biotin. [employer] ([employer]) INVESTIGATION MANAGER CHEMISTRY & BLOOD GAS ORDER GORDON Final Result Performing Organization Address [facility] de Phone Number [facility] [address] [place] [address] * (ABNORMAL) HEMOGLOBIN A1C (03/26/2021 10:07 EST) [...] Unknown 03/26/2021 10:07 EST 03/26/2021 10:08 EST [employer] CHEMISTRY & BLOOD GAS ORDER GORDON Final Result Performing Organization Address [facility] Co de Phone Number [facility] [address] [place] [address] documented in this encounter Visit Diagnoses Diagnosis Pre-diabetes- Primary Other abnormal glucose Hypertension, essential Unspecified essential hypertension documented in this encounter Care Teams Regional Dedicated Truck Driver Relationship Specialty Start Date End Date Eloina Brewer NP [address] [facility] [address] [place] [phone] PCP - General 10/16/20 documented as of this encounter
--- OUTSIDE RECORDS SUMMARY | 2024-05-24 19:25 | XMS_ITS | Encounter Summary ---
Author Organization [facility] Address [address] [place] [address] Care Team Providers Care Carton Forming Machine Operator Name Role Phone Eloina Brewer DIGITAL PHOTOGRAPHER Primary Care Provider [phone] Encounter Details Date Type Department Care Team (Latest Contact Info) Description 10/02/2021 11:00 EDT Phlebotomy Only [facility] Laboratory Services - [facility] ([facility]) [address] [place] [phone] Hyperpotassemia (Primary Dx) Social History Tobacco Use [...] 136 - 145 mmol/L 10/02/2021 12:45 EDT [facility] Potassium 4.7 3.5 - 5.0 mmol/L 10/02/2021 12:45 T [facility] Chloride 101 96 - 110 mmol/L 10/02/2021 12:45 T [facility] CO2 Total 29 22 - 32 mmol/L 10/02/2021 12:45 [facility] Anion Gap 9 5 - 14 10/02/2021 12:45 [facility] Glucose 99 70 - 100 mg/dL 10/02/2021 12:45 [facility] Calcium 9.3 8.5 - 10.5 mg/dL 10/02/2021 12:45 [facility] BUN 40(H) 10 - 26 mg/dL 10/02/2021 12:45 [facility] Creatinine 1.31(H) 0.52 - 1.04 mg/dL 10/02/2021 12:45 [facility] eGFR 40(L) >60 mL/min/1.73 m2 10/02/2021 12:45 [facility] Blood VENOUS BLOOD / Unknown Venipuncture / Unknown 10/02/2021 11:10 EDT 10/02/2021 11:10 EDT us Eloina Brewer NP CHEMISTRY & BLOOD GAS ORDER GORDON Final Result [facility] [address] [place] [address] documented in this encounter Visit Diagnoses Diagnosis Hyperpotassemia- Primary documented in this encounter Care Teams Carton Forming Machine Operator Relationship Specialty Start Date End Date Eloina Brewer NP [address] [place] [address] PCP - General 10/16/20 documented as of this encounter
--- OUTSIDE RECORDS SUMMARY | 2024-05-24 19:25 | XMS_ITS | Encounter Summary ---
Author Organization [facility] Address [address] [place] [address] Care Team Providers Care Shop Hand Name Role Phone Eloina Brewer RAILROAD SHOP INSPECTOR Primary Care Provider [phone] Reason for Visit * (Routine/Next Available) - Receiving Office to Obtain Authorization Specialty Diagnoses / Procedures Referred By Kayla t Referred To Contact Procedures CT OUTSIDE IMAGES CHEST Unknown, Provider, MD Referral ID Status Reason Start Date Expiration Date Visits Requested Visits Authorized [id number] Receiving Office to Obtain Authorization 09/26/2021 1 1 Encounter Details Date Type Department Care Team (Latest Contact Info) Description 09/23/2021 - 09/23/2021 23:59 EDT Hospital Encounter [facility] Secondary Reads [place] Discharge Disposition: Home [...] EDT This is a non-reportable exam. us Provider Unknown MD DAWSON OTHER IMAGING ORDERABLES Final Result documented in this encounter Visit Diagnoses Not on filedocumented in this encounter Care Teams Shop Hand Relationship Specialty Start Date End Date Eloina Brewer NP [address] [place] [address] [address] [place] [phone] PCP - General 10/16/20 documented as of this encounter
--- OUTSIDE RECORDS SUMMARY | 2024-05-24 19:25 | XMS_ITS | Encounter Summary ---
Author Organization [facility] Address [address] [place] [address] Care Team Providers Care Agriculture Engineer Name Role Phone Patricia Ulloa MD Primary Care Provider Reason for Visit * Reason Comments New Patient Visit Encounter Details Date Type Department Care Team (Late st Contact Info) Description 08/31/2020 8:15 EDT Office Visit [facility] Adult Primary Care - [address] [address] Patricia Ulloa MD [address] [place] [phone] Fall, sequela (Primary Dx); Hypothyroidism, unspecified [...] Patricia Ulloa MD - 08/31/2020 0815 EDT [facility] Adult Primary Care, Geriatrics - [facility] Subjective: Ms. Meredith Thornton is a 84 [...] the area to live with daughter from [facility]. She is transferring care from [facility]. We do not have records at this time. They have been requested. She also sees a Human Resources Temp, Dr. Granger. She has seen a Neurologist, Cezar White. She is here today with her daughter Gabriel. Weight loss - has lost 30 lbs in past 1.5 years - initially was trying to eat less - Gabriel thinks 2018 is when this started - Meredith and gabriel feel weight loss stabilized while at [facility] - good appetite HTN - had been hospitalized [facility] in May 2019 for HTN 220 [...] but if they do it will through Human Resources Temp -- Dr Granger Feet tingling - resolved [...] PHQ-2 0 SASQ 0 Prescription Misuse 0 senior administrator support: she fills pill box every friday DENTAL IADL- car removed May 2019, retested Neurologist in July 2019 and she didn't get car back ( memorytesting), Gabriel helps with finances, Gabriel does cooking, cleaning Social History - born in [facility] -Daughter Gabriel in [place], son Diego in [place] - 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 [facility] [place] history so has not received many vaccines [...] Endo None 11/30/2020 8:15 Patricia Ulloa MD [facility] Patricia Ulloa MD [facility] General Internal Medicine and Geriatrics 08/31/2020 8:29 [...] 09/19/2020 added in this encounter Care Teams Agriculture Engineer Relationship Specialty Start Date End Date Patricia Ulloa MD PCP - General Geriatric Medicine 08/31/20 10/15/20 documented as of this encounter
--- OUTSIDE RECORDS SUMMARY | 2024-05-24 19:25 | XMS_ITS | Encounter Summary ---
Author Organization [facility] Address [address] [place] [address] Care Team Providers Care Senior Laboratory Technician Name Role Phone Camila Moreland MD Primary Care Provider [phone] Reason for Visit * Reason Onset Date Comments Patient Outreach 05/21/2018 Encounter Details Date Type Department Care Team (Late st Contact Info) Description 05/21/[address] [facility] Ophthalmology - [address] [address] Travis Florez MD [address] [place] [address], [address] [place] [phone] Patient Outreach Social History Tobacco [...] up with . Will continue care in [facility] documented in this encounter Plan of Treatment Not on file documented as of this encounter Visit Diagnoses Not on filedocumented in this encounter Care Teams Senior Laboratory Technician Relationship Specialty Start Date End Date Camila Moreland MD [address] [place] [address] PCP - General 03/10/15 07/02/20 documented as of this encounter
--- OUTSIDE RECORDS SUMMARY | 2024-05-24 19:25 | XMS_ITS | Encounter Summary ---
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 Ref here from Dr. Arellano * Referral (Routine) - Closed Specialty Diagnoses / Procedures Referred By Kayla goodman Referred To Contact Ophthalmology Diagnoses Age-related macular degeneration Bilateral dry eyes Cas Pineda MD Phone: tel: fax: [facility] Ophthalmology - Main [place] [address] [place] [address] Phone: tel: fax: Referral ID Status Reason Start Date Expiration Date Visits Re quested Visits Authorized [id number] Closed 1 1 Encounter Details Date Type Department Care Team (Late st Contact Info) Description 12/03/2017 13:15 EDT Office Visit [facility] Ophthalmology - Main [address] [address] Travis Florez MD [address] [place] [address], [address] [place] [address] Discharge Disposition: Auto Discharge Social [...] 2017 Isaiah Quick OD [facility] [address], [address] [place] [address] RE: MEREDITH THORNTON : 1935 Dear Isaiah, [...] - Travis Florez MD ln Dictation ID: [id number] cc: Isaiah Quick OD, [facility] [address], [address], [place] [address] documented in this encounter Plan of Treatment [...] vus superior to nerve 1dd Care Teams Bingo Usher Relationship Specialty Start Date End Date Camila Moreland MD [address] [place] [address] PCP - General 03/10/15 07/02/20 documented as of this encounter
== END 2024-05-24 19:23 | disposition home or self-care (01) ==
LOC: LBN 19:22
PROVIDERS: PCP Legal Medicine; Visit Provider Nurse Practitioner Gerontology
DX: N39.0 Urinary tract infection, site not specified (principal)
CPT/HCPCS: 81003; 87086

== ENCOUNTER 2024-05-27 11:14 | Emergency (ER) | payer MEDICARE, MEDICAID, SELFPAY ==
[2024-05-27] VITALS (13 sets, daily range): BP systolic 200–245; BP diastolic 57–103; PULSE 41–52; RESP 10–16; TEMP 37.1; O2SAT 94–98
--- NOTE | 2024-05-27 11:15 | DI.CT_ITS ---
Exam(s) CT HEAD WO EXAM: CT HEAD WO CLINICAL HISTORY: ams. TECHNIQUE: Imaging Protocol: Axial computed tomography images with coronal and sagittal reformatted images were created and reviewed COMPARISON: CT CT HEAD WO from 09/18/2023 FINDINGS: There are no skull fractures. There is no fluid in the visualized paranasal sinuses. There is no evidence of intracranial hemorrhage, new mass effect, or shift of midline structures. Th ere are no extra-axial fluid collections. Small left frontal meningioma is unchanged size and there is no new surrounding mass effect. The ventricles are not enlarged or shifted and there is no blood within the ventricular system nor within the basal cisterns. Calcifications again noted in the internal carotid arteries and vertebral arteries at the skull base. IMPRESSION: No acute intracranial findings on this noninfused CT scan of the brain. 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 Unc hanged from prior scans of 2019 and 2021. If clinically indicated follow-up MRI can be performed Report called by myself to ER physician 05/27/2024 12:44 p.m. RADIATION DOSE DELIVERED: 801.92mGy.cm Total DLP DATA REPOSITORY: All CT scans at this facility are submitted to the National Radiology Data Registry (NRDR) Dose Index Registry (DIR) with the [employer] (A[employer]). RADIATION OPTIMIZATION: All CT scans at this facility use at least one of these dose optimization te chniques: automated exposure control; mA and/or kV adjustment per patient size (includes targeted exa ms where dose is matched to clinical indication); or iterative reconstruction.
--- NOTE | 2024-05-27 11:30 | RT.EKG_ITS ---
APPROVED REPORT Exam: Resting ECG Reason for Exam: AMS Patient Location: E HR:53 bpm ECG Measurements Heart Rate [address] 187 P -16 QRSd 110 QRS 40 QT 479 T 79 QTc 449 Conclusion Sinus bradycardia 53 normal axis no stemi
--- NOTE | 2024-05-27 11:46 | W.ED.GENAD ---
Discharge Plan Disposition Patient Disposition: Home Condition: Stable Discharge Details Clinical Impression: Dementia with behavioral disturbance Primary Care Provider: Meera Lockett ED Provider: Any Underwood Home Meds and New Rx's Prescriptions: No Action sennosides [Senna Lax] 8.6 mg tablet 17.2 mg PO BID Qty: 1 0RF polyethylene glycol 3350 [Miralax] 17 gram/dose powder 17 g PO DAILY nystatin 100,000 unit/gram cream 1 applic topical BID Qty: 30 0RF acetaminophen 325 mg tablet 650 mg PO Q6H PRN metoprolol succinate 25 mg tablet extended release 24 hr 12.5 mg PO DAILY B-complex with vitamin C Capsule 1 cap PO DAILY levothyroxine 25 mcg tablet 37.5 mcg PO DAILY quetiapine 25 mg tablet 25 mg PO BID furosemide 20 mg tablet 20 mg PO 1XD spironolactone 25 mg Tablet 12.5 mg PO DAILY Qty: 15 0RF Discharge Instructions Additional Instructions: Lab work obtained today does not reveal any acute abnormality. There is no significant dehydration or electrolyte problem. Thyroid function is within normal limits. There is no change in her EKG or heart blood work. Her urinalysis does not have an infection. A head CT was obtained and this is stable from prior. The patient did have some high blood pressure. The patient was observed to drink in the emergency department. At this time there is no admittable diagnosis and I suspect her symptoms are secondary to her ongoing dementia process. Recommend continued care and follow-up with her primary care provider. HPI General Date/Time Provider Initiated Documentation: 05/27/24 11:29. Limitations to Documentation: altered mental status. Information obtained by: patient and RN/MD. HPI Narrative: 88-year-old female with past medical history including encephalopathy, dementia, A-fib, CKD presents from a nursing facility for evaluation of altered mental status. Patient is unable to provide significant amount of history, but the nursing report was that for the last 2 days the patient has not been eating or drinking. There is been generalized weakness and they have not been able to get her out of bed. EMS reported that it took both of them to get her transition from bed to stretcher. Patient says that she is not eating because she cannot swallow. She says I am done. I am just all done. She says that she is too weak to move her legs or her arms. Related Data Home Medications ?Medication ?Instructions ?Recorded ?Confirmed sennosides 8.6 mg tablet (Senna 17.2 mg (2 x 8.6 mg) PO BID #1 tab 05/30/22 05/27/24 Lax) nystatin 100,000 unit/gram topical 1 applic topical BID #30 grams 08/23/22 05/27/24 cream polyethylene glycol 3350 17 17 g PO DAILY 09/20/22 05/27/24 gram/dose oral powder (Miralax) furosemide 20 mg tablet 20 mg PO 1XD 11/03/22 05/27/24 spironolactone 25 mg tablet 12.5 mg (1/2 x 25 mg) PO DAILY #15 11/11/22 05/27/24 tabs B-complex with vitamin C 1 cap PO DAILY 02/19/23 05/27/24 levothyroxine 25 mcg tablet 37.5 mcg PO DAILY 09/18/23 05/27/24 quetiapine 25 mg tablet 25 mg PO BID 09/18/23 05/27/24 acetaminophen 325 mg tablet 650 mg PO Q6H PRN 10/22/23 05/27/24 metoprolol succinate 25 mg 12.5 mg PO DAILY 04/22/24 05/27/24 tablet,extended release 24 hr Previous Rx's ?Medication ?Instructions ?Recorded sennosides 8.6 mg tablet (Senna 17.2 mg (2 x 8.6 mg) PO BID #1 tab 05/30/22 Lax) nystatin 100,000 unit/gram topical 1 applic topical BID #30 grams 08/23/22 cream spironolactone 25 mg tablet 12.5 mg (1/2 x 25 mg) PO DAILY #15 11/11/22 tabs Allergies Allergy/AdvReac Type Severity Reaction Status Date / Time amlodipine Allergy Severe Tongue Verified 05/27/24 11:27 swelling oseltamivir (From Tamiflu) Allergy Mild rash Unverified 05/27/24 11:27 Sulfa (Sulfonamide Allergy Unknown rash, sick Verified 05/27/24 11:27 Antibiotics) to stomach General Stated Complaint: AMS/LOC JENNIFER: 3 Exam Narrative Exam Narrative: Review of Systems: All systems reviewed & are unremarkable except as noted in HPI and below Elderly frail NCAT Repetitive tremor-like movement of the jaw Dry mucous membranes Bradycardia, hypertension Unlabored respiratory effort clear bilaterally Nondistended abdomen soft nontender Extremities w/o deformity, no cyanosis, no edema very flat affect with minimal movement other than her jaw Course Vital Signs Vital signs: Vital Signs Temperature 37.1 C 05/27/24 11:19 Pulse 52 L 05/27/24 11:19 Respiratory Rate 10 L 05/27/24 11:19 Blood Pressure 245/103 H 05/27/24 11:19 Pulse Oximetry 94 05/27/24 11:19 Temperature 37.1 C 05/27/24 11:19 Temperature Source Temporal Artery Scan 05/27/24 11:19 Pulse 52 L 05/27/24 11:19 Respiratory Rate 10 L 05/27/24 11:23 Respiratory Effort Normal 05/27/24 11:23 Blood Pressure 245/103 H 05/27/24 11:19 Blood Pressure Position Supine 05/27/24 11:19 Pulse Oximetry 94 05/27/24 11:19 Oxygen Delivery Method Room Air 05/27/24 11:19 Oxygen Flow Rate 0 05/27/24 11:19 Medical Decision Making Emergent evaluation of altered mental status. Patient reportedly has not had anything to eat or drink for 2 days. History is difficult to obtain from the patient. The patient has a history of CVA and dementia. She is followed by palliative care. Patient has some abnormality in her voice almost like she is having difficulty with tongue mobility. It is unclear if this is from her dry mucous membranes. Will do a swallow study and challenge this. Will get CT scan of her head to evaluate for possible new CVA, will check lab work for infectious etiology, dehydration or electrolyte derangement. Like lab work reviewed. No white blood cell count elevation or anemia. There is no significant electrolyte derangement. Her renal function is at baseline. Her thyroid studies are within normal limits. Her urinalysis is not infected. A head CT was obtained and this does not demonstrate an acute abnormality or change from prior. The patient was encouraged to drink and she was able to do so without difficulty. There is no signs of aspiration or other swallowing abnormality just that the patient seemed to need reassurance and encouragement to eat and drink. At this time I feel like her symptoms are most likely secondary to her ongoing dementia and likely worsening of this chronic etiology. No acute emergent and etiology was identified. No indication for hospitalization. Patient returned in stable condition to the [facility]. Quality:SDOH Health Related Social Needs: No Data to Display PFSH All Active Problems (Updated 05/27/24 @ 13:24 by Any Underwood MD) Hypertensive urgency (Acute) prison resident (Acute) DNR no code (do not resuscitate) (Acute) Dementia with behavioral disturbance (Acute) Chronic heart failure with preserved ejection fraction (Chronic) Macular degeneration (Acute) Essential tremor (Acute) familial Gait abnormality (Acute) uses a walker when out, balance and shuffling steps Prediabetes (Chronic) 03/26/21- A1c 5.9 [facility] Hypertension (Chronic) Anxiety (Chronic) CKD (chronic kidney disease) stage 3, GFR 30-59 ml/min (Chronic) Hypothyroid (Chronic) 03/26/21- TSH 2.95 [facility]0 WNL Memory changes (Acute) Dyspnea (Acute) Left lower lobe pulmonary nodule (Acute) PET 10/2021: highly metabolically active left lower mass, organizing pneumonia vs. 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 states she is unaware of this. Acute infective polyneuritis (~04/03/1966) Pneumonia (~07/20/18) Cerebrovascular accident 06/12 CT @ [facility]: SMALL LACUNAR INFARCTS. Incidental findings. Pt. states she is unaware of this dx. Dislocation of shoulder, anterior, left, closed (04/10/14) Closed displaced fracture of greater tuberosity of left humerus (04/10/14) Closed fracture of head of left humerus (04/10/14) Surgical History Posterior subcapsular age-related cataract, right eye Status post extracapsular cataract extraction of left eye Fracture, Closed Treatment (04/10/14) LEFT SHOULDER FX AND DISLOCATED Cholecystectomy (~1991) Family History Mother , age 56 Cancer Father , age 76 Heart disease Sister No problems noted. Son No problems noted. Daughter No problems noted. Maternal Grandfather , age 78 No problems noted. Paternal Grandfather , age 62 Stroke Maternal Grandmother , age 89 - Accident No problems noted. Paternal Grandmother , age 68 No problems noted. Social History Smoking/Tobacco Use Status: Never Second Hand Exposure: Yes Smoking risk assessment performed?: Yes Alcohol Intake: never Drug use: Never Substance use type: does not use Counseling given: No Caregiver/Support person: Yes Household members: caregiver Housing: prison Communication Needs: Hard of Hearing Do you need help understanding health information?: Always Pets and animals: No Sexually active: No Do you think of yourself as: straight/heterosexual Current gender identity: female What is your relationship status?: How often do you talk on the phone with friends or family?: three or more times per week How often do you get together with friends or relatives?: once per week How often do you attend yarsani or worship services?: 1-3 times per year Do you belong to any clubs or organized social groups?: no Panel score (0-1 are the most socially isolated patients): 1 What type of physical activity do you participate in: walking and weight lifting Duration: < 15 minutes/day Frequency: 1-2 times per week Anai/Scientology: Baptism Special anai needs: No Seatbelt use: always Helmet use: No Drive intox or ride w/intox 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
[2024-05-27 12:05] LABS: Abs Immature Grans 0.03 10^3/uL (0.0-0.06); Absolute Basophil Count 0.02 10^3/uL (0.0-0.2); Absolute Eosinophil Count 0.06 10^3/uL (0.0-0.7); Absolute Lymphocyte Count 0.94 10^3/uL (1.2-3.4); Absolute Neutrophil Count 5.03 10^3/uL (1.2-6.7); Basophils % 0.3 %; Eosinophils % 0.9 %; HCT 42.9 % (36.0-46.0); HGB 13.7 g/dL (11.2-15.7); Immature Grans % 0.5 %; Lymphocytes % 14.7 %; MCH 29.5 pg (27.0-33.0); MCHC 31.9 % (32.0-36.0); MCV 92 fL (80-95); Monocytes % 4.7 %; Neutrophils % 78.9 %; Platelet Count 131 10^3/uL (130-400); RBC 4.65 10^6/uL (3.93-5.22); RDW 16.5 % (11.7-14.6); RDW-SD 55.7 fL; WBC 6.38 10^3/uL (4.4-10.8)
[2024-05-27 12:09] LABS: Bilirubin Negative (Negative); Blood Trace-intact (Negative); Clarity Clear (Clear); Glucose Negative (Negative); Ketones Trace mg/dL (Negative); Leukocyte Esterase Negative (Negative); Nitrite Negative (Negative); Urobilinogen 0.2 mg/dL (Up to 0.2); pH 5.5 (5-8)
[2024-05-27 12:14] LABS: ALT 59 U/L (14-59); AST 66 U/L (15-37); Albumin 3.6 g/dL (3.4-5.0); Alkaline Phosphatase 249 U/L (46-116); Anion Gap 9.3 mmol/L (3-11); BUN 32 mg/dL (7-18); Bilirubin, Total 0.37 mg/dL (0.2-1.0); CO2 27.7 mmol/L (21.0-32.0); CREATININE 1.4 mg/dL (0.55-1.02); Calcium 10.1 mg/dL (8.5-10.1); Chloride 107 mmol/L (98-107); Estimated GFR 36.41 (mL/min/1.73m2); Glucose 93 mg/dL (74-106); Magnesium 2.1 mg/dL (1.8-2.4); Potassium 5.1 mmol/L (3.5-5.1); Sodium 144 mmol/L (136-145); Total Protein 8.5 g/dL (6.4-8.2)
[2024-05-27 12:24] LABS: TSH (W/Ref FT4) 4.17 uIU/mL (0.36-3.74); Troponin I 15 ng/L (<or=51)
[2024-05-27 12:24] LABS: Bacteria Rare HPF (Negative); C & S Indicated? No; Casts Negative LPF (Negative); Crystals Negative HPF (Negative); Epithelial Cells Moderate HPF (Negative); Mucus Negative (Negative); Other Cells Negative (Negative); RBC Negative HPF (0-2); WBC Negative HPF (0-5)
[2024-05-27 12:44] LABS: FREE T4 0.92 ng/dL (0.76-1.46)
[2024-05-27 13:19] LABS: Troponin I 14 ng/L (<or=51)
== END 2024-05-27 13:40 | disposition home or self-care (01) ==
PROVIDERS: Emergency Provider Emergency Medicine; PCP Legal Medicine
DX: F03.918 Unspecified dementia, unspecified severity, with other behavioral disturbance (principal); Z86.73 Personal history of transient ischemic attack (TIA), and cerebral infarction without residual deficits
CPT/HCPCS: 80053; 82962; 93005; 99284; 70450; 81003; 81015; 83735; 84439; 84443; 84484; 85025; 93010

== ENCOUNTER 2024-05-28 17:12 | Observation (INO) | payer MEDICARE, MEDICAID, SELFPAY ==
[2024-05-28] VITALS (107 sets, daily range): BP systolic 144–209; BP diastolic 67–158; PULSE 50–83; RESP 12–26; O2SAT 92–98
--- NOTE | 2024-05-28 17:00 | RT.EKG_ITS ---
APPROVED REPORT Exam: Resting ECG Reason for Exam: dyspnea Patient Location: E HR:74 bpm ECG Measurements Heart Rate 74 AXIS W[place] [id number] P 259 QRSd 100 QRS 22 QT 393 T 89 QTc 436 Conclusion Atrial fibrillation, rate 74 No interval abnormalities No STEMI
--- NOTE | 2024-05-28 17:15 | DI.RAD_ITS ---
Exam(s) XR PORTABLE CHEST AP EXAM: XR PORTABLE CHEST AP CLINICAL HISTORY: Shortness of breath TECHNIQUE: 2D digital imaging was performed. COMPARISON: CR XR PORTABLE CHEST AP from 11/07/2022 CR XR CHEST 2V PA LATERAL from 12/03/2022 CR,XR XR CHEST 2V PA LATERAL from 08/17/2023 CR XR CHEST 1V IN DI DEPT from 09/18/2023 FINDINGS: Exam limited by elevated diaphragms and suboptimal pulmonary inflation. LUNGS: Right lung is clear. Crowding of the vessels in the left lower lobe. No pleural abnormality seen. HEART: Normal size. AORTA: Tortuous BONES: Severe degenerative changes of both shoulders. Soft tissues: Unremarkable. IMPRESSION: Limited exam. No acute findings. DATA REPOSITORY: RADIATION DOSE DELIVERED:
--- NOTE | 2024-05-28 17:20 | ED.GENADUL_ITS ---
Discharge Plan Disposition Patient Disposition: Admit to [facility] Condition: Stable Discharge Details Chief Complaint: SOB Clinical Impression: Acute dehydration, Essential tremor, Hypertension, CKD (chronic kidney disease) stage 3, GFR 30-59 ml/min, Left lower lobe pulmonary nodule, Palliative care patient, Chronic heart failure with preserved ejection fraction, Dementia with behavioral disturbance, DNR no code (do not resuscitate), Encephalopathy, Adult failure to thrive Primary Care Provider: Meear Lockett ED Provider: Dorie Joya Home Meds and New Rx's Prescriptions: No Action sennosides [Senna Lax] 8.6 mg tablet 17.2 mg PO BID Qty: 1 0RF polyethylene glycol 3350 [Miralax] 17 gram/dose powder 17 g PO DAILY nystatin 100,000 unit/gram cream 1 applic topical BID Qty: 30 0RF acetaminophen 325 mg tablet 650 mg PO Q6H PRN metoprolol succinate 25 mg tablet extended release 24 hr 12.5 mg PO DAILY B-complex with vitamin C Capsule 1 cap PO DAILY levothyroxine 25 mcg tablet 37.5 mcg PO DAILY quetiapine 25 mg tablet 25 mg PO BID furosemide 20 mg tablet 20 mg PO 1XD spironolactone 25 mg Tablet 12.5 mg PO DAILY Qty: 15 0RF HPI General Mode of arrival: EMS . Date/Time Provider Initiated Documentation: 05/28/24 17:15 . Limitations to Documentation: altered mental status . Information obtained by: patient, EMS and old records reviewed . HPI Narrative: HPI: This is a 88-year-old female patient with a history of dementia, atrial fibrillation not on anticoagulation, hypertension, CKD, and history of stroke, who is presenting for evaluation of shortness of breath, chest pain, and altered mental status. Of note, the patient was seen here yesterday for difficulty swallowing, had a Noncon CT head that was normal at that time and was discharged after reassuring laboratory studies with a presumed diagnosis of progression of her dementia. EMS reports that they were summoned today for shortness of breath and chest pain that started today. The patient was also noted to have a rhythmic tremor/opening and closing of her lower jaw. The patient is unable to participate in my history taking, she does look towards me when instructed to, and was able to shake her head no when asked if she had chest pain. She is otherwise just moaning and nonparticipatory in my examination. I did obtain collateral information from the RN at the [facility], who states that the patient is usually able to talk and feed herself. She states that they had increased difficulty even compared to yesterday getting the patient to take oral intake, states that she stopped speaking early this morning, and they had a telehealth visit with their on-call provider who recommended observation. They note that the patient was unable to bear weight today, could not stand and pivot, and had poor p.o. intake. Exam: Gen: Lying Semi-Vilchis's on the hospital bed HEENT: Non-icteric sclera, PERRL, tracks appropriately Neck: Supple Lungs: No apparent respiratory distress, normal respiratory effort. Lung sounds clear and equal bilaterally CV: Appears well perfused, heart with regular rate and rhythm, no murmurs auscultated, strong distal pulses Abdomen: Non-distended, soft, no reaction as if in pain MSK: No obvious asymmetry, patient does not move her limbs but does not appear to have any external traumatic findings Skin: Visualized skin without rashes, cyanosis. Neuro: The patient follows commands with her eyes, does not follow commands with her limbs, moaning and not able to speak with command. Face appears symmetrical MDM: This is an 88-year-old female patient presenting for evaluation of shortness of breath, chest pain, and altered mental status. Certainly this is a change from her discharge examination, unclear last known well time, but I did certainly consider stroke, intracranial hemorrhage, encephalopathy, metabolic and electrolyte derangement, ACS, pneumonia, CHF exacerbation, kidney injury or liver disease. The patient is DNR/DNI, with limited interventions requested per her palliative care and POLST status. I will obtain laboratory studies to include CBC, CMP, magnesium, troponin, BNP, Fluvid, and will obtain a chest x-ray. We did obtain an EKG which shows an atrial fibrillation with a rate of 74 no evidence of acute ischemia. ED Course: I reviewed the patient's laboratory studies, which show no significant leukocytosis, mildly up at 12.8, but no anemia or thrombocytopenia. Chemistry panel with a mild hyperkalemia to 5.6, EKG has no associated changes such as T wave peaking, QRS widening, or bradycardia. The patient's renal dysfunction is slightly up from her baseline, BUN of 37 and creatinine of 1.8. She has a new transaminitis with an AST of 117 and an ALT of 104, and alk phos of 331. Her troponin is negative, her BNP is slightly elevated at 748, and her chest x-ray shows no pulmonary edema. Urinalysis noninfectious. I had an extended shared decision-making conversation with this patient and her family regarding neck steps in workup and management. She had a negative head CT yesterday, and her daughter reports that this episode seems similar to her prior episodes of transient encephalopathy that has occurred since her diagnosis of Guillain-Ruiz? in her 30s. She states that she almost always gets better spontaneously and has had numerous stroke workups, and additionally would not likely want to go through with any advanced treatment for stroke even if she was found to have one. I have a very low concern for infectious encephalopathy given her lack of fever, she has no evidence of meningismus on my physical examination, and I feel it is prudent to hold on further CT imaging of her brain at this time given the patient and the family's goals of care. They are amenable to pursuing CT of the abdomen and pelvis to ensure that there is nothing actionable to explain her laboratory changes that could improve the patient's quality of life. This was obtained and reviewed by myself. I note a left lower pleural mass concerning for malignancy of which the patient and her family are aware. The patient has already refused biopsy and no further action has been taken for this finding. She has stable renal cysts and no evidence of other acute abnormality to explain her new transaminitis. She is status post cholecystectomy. We did try p.o. challenging this patient, and despite numerous attempts at prompting she was unable to successfully take an adequate amount of fluids to reassure me that she will be able to maintain her hydration in the outpatient environment. The patient will certainly require speech-language pathology, as well as palliative care to discuss goals of care as her dementia progresses and she becomes less motivated to eat and drink. She did receive 500 cc of fluid for rehydration. I spoke with the hospitalist who is graciously accepted this patient for admission for her dehydration and poor p.o. intake, and he had a shared goals making decision conversation with the patient and her family member, and anticipate if this patient does not turnaround she will require discussion with palliation for next steps in her hydration and nutrition needs. The patient remained hemodynamically appropriate while under my care and was transferred to the hospitalist team without incident. Dorie Joya MD Related Data Home Medications ?Medication ?Instructions ?Recorded ?Confirmed sennosides 8.6 mg tablet (Senna 17.2 mg (2 x 8.6 mg) PO BID #1 tab 05/30/22 05/28/24 Lax) nystatin 100,000 unit/gram topical 1 applic topical BID #30 grams 08/23/22 05/28/24 cream polyethylene glycol 3350 17 17 g PO DAILY 09/20/22 05/28/24 gram/dose oral powder (Miralax) furosemide 20 mg tablet 20 mg PO 1XD 11/03/22 05/28/24 spironolactone 25 mg tablet 12.5 mg (1/2 x 25 mg) PO DAILY #15 11/11/22 05/28/24 tabs B-complex with vitamin C 1 cap PO DAILY 02/19/23 05/28/24 levothyroxine 25 mcg tablet 37.5 mcg PO DAILY 09/18/23 05/28/24 quetiapine 25 mg tablet 25 mg PO BID 09/18/23 05/28/24 acetaminophen 325 mg tablet 650 mg PO Q6H PRN 10/22/23 05/28/24 metoprolol succinate 25 mg 12.5 mg PO DAILY 04/22/24 05/28/24 tablet,extended release 24 hr Previous Rx's ?Medication ?Instructions ?Recorded sennosides 8.6 mg tablet (Senna 17.2 mg (2 x 8.6 mg) PO BID #1 tab 05/30/22 Lax) nystatin 100,000 unit/gram topical 1 applic topical BID #30 grams 08/23/22 cream spironolactone 25 mg tablet 12.5 mg (1/2 x 25 mg) PO DAILY #15 11/11/22 tabs Allergies Allergy/AdvReac Type Severity Reaction Status Date / Time amlodipine Allergy Severe Tongue Verified 05/28/24 17:54 swelling oseltamivir (From Tamiflu) Allergy Mild rash Unverified 05/28/24 17:54 Sulfa (Sulfonamide Allergy Unknown rash, sick Verified 05/28/24 17:54 Antibiotics) to stomach General Stated Complaint: SOB JENNIFER: 3 Course Vital Signs Vital signs: Vital Signs Pulse 76 05/28/24 17:13 Respiratory Rate 20 05/28/24 17:13 Blood Pressure 209/75 H 05/28/24 17:13 Pulse Oximetry 97 05/28/24 17:13 Pulse 76 05/28/24 17:13 Respiratory Rate 20 05/28/24 17:13 Blood Pressure 209/75 H 05/28/24 17:13 Pulse Oximetry 97 05/28/24 17:13 Medical Decision Making Quality:SDOH Health Related Social Needs: No Data to Display PFSH All Active Problems (Updated 05/28/24 @ 21:40 by Dorie Joya MD) Adult failure to thrive (Acute) Encephalopathy (Acute) Acute dehydration (Acute) Hypertensive urgency (Acute) penitentiary resident (Acute) DNR no code (do not resuscitate) (Acute) Dementia with behavioral disturbance (Acute) Chronic heart failure with preserved ejection fraction (Chronic) Macular degeneration (Acute) Essential tremor (Acute) familial Gait abnormality (Acute) uses a walker when out, balance and shuffling steps Prediabetes (Chronic) 03/26/21- A1c 5.9 [facility] Hypertension (Chronic) Anxiety (Chronic) CKD (chronic kidney disease) stage 3, GFR 30-59 ml/min (Chronic) Hypothyroid (Chronic) 03/26/21- TSH 2.95 [facility]0 WNL Memory changes (Acute) Dyspnea (Acute) Left lower lobe pulmonary nodule (Acute) PET 10/2021: highly metabolically active left lower mass, organizing pneumonia vs. 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 states she is unaware of this. 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 Incidental findings. Pt. states she is unaware of this dx. Dislocation of shoulder, anterior, left, closed (04/10/14) Closed displaced fracture of greater tuberosity of left humerus (04/10/14) Closed fracture of head of left humerus (04/10/14) Surgical History Posterior subcapsular age-related cataract, right eye Status post extracapsular cataract extraction of left eye Fracture, Closed Treatment (04/10/14) LEFT SHOULDER FX AND DISLOCATED Cholecystectomy (~1991) Family History Mother , age 56 Cancer Father , age 76 Heart disease Sister No problems noted. Son No problems noted. Daughter No problems noted. Maternal Grandfather , age 78 No problems noted. Paternal Grandfather , age 62 Stroke Maternal Grandmother , age 89 - Accident No problems noted. Paternal Grandmother , age 68 No problems noted. Social History Smoking/Tobacco Use Status: Never Second Hand Exposure: Yes Smoking risk assessment performed?: Yes Alcohol Intake: never Drug use: Never Substance use type: does not use Counseling given: No Caregiver/Support person: Yes Household members: caregiver Housing: skilled nursing Communication Needs: Hard of Hearing Do you need help understanding health information?: Always Pets and animals: No Sexually active: No Do you think of yourself as: straight/heterosexual Current gender identity: female What is your relationship status?: How often do you talk on the phone with friends or family?: three or more times per week How often do you get together with friends or relatives?: once per week How often do you attend tenriism or moravian services?: 1-3 times per year Do you belong to any clubs or organized social groups?: no Panel score (0-1 are the most socially isolated patients): 1 What type of physical activity do you participate in: walking and weight lifting Duration: < 15 minutes/day Frequency: 1-2 times per week Anai/Moravian: Rastafarian Special anai needs: No Seatbelt use: always Helmet use: No Drive intox or ride w/intox 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
--- OUTSIDE RECORDS SUMMARY | 2024-05-28 17:22 | XMS_ITS | Encounter Summary ---
Author Organization [facility] Address [address] [place] [address] Care Team Providers Care Project Development Director Name Role Phone Eloina Brewer NP Primary Care Provider [phone] Reason for Referral * Radiology Services (Routine/Next Available) - Authorization Not Required Specialty Diagnoses / Procedures Referred By Kayla goodman Referred To Contact Nuclear Medicine Diagnoses Solitary pulmonary nodule Procedures PET CT EYE TO THIGH Eloina Brewer NP [address] [place] [address] Phone: tel: fax: [facility] Referral ID Status Reason Start Date Expiration Date Visits Requested Visits Authorized [id number] Authorization Not Required 09/26/2021 1 1 Reason for Visit * Radiology Services (Routine/Next Available) - Authorization Not Required Specialty Diagnoses / Procedures Referred By Kayla goodman Referred To Contact Nuclear Medicine Diagnoses Solitary pulmonary nodule Procedures PET CT EYE TO THIGH Eloina Brewer NP [address] [place] [address] Phone: tel: fax: [facility] Referral ID Status Reason Start Date Expiration Date Visits Requested Visits Authorized [id number] Authorization Not Required 09/26/2021 1 1 Encounter Details Date Type Department Care Team (Latest Contact Info) Description 10/26/2021 13:20 EDT - 10/26/2021 23:59 EDT Hospital Encounter [facility] Radiology Nuclear [place] [address] Solitary pulmonary nodule Discharge Disposition: Home or [...] the IV injection of 9.3 mCi of [id number], 3D TOF PET imaging was obtained from the skull base to upper thighs using a [email or web address] digital ??PET/CT system. ??The blood glucose level [...] following the IV injection of 9.3 mCi [id number], 3D TOF PET imaging was obtained from the skullbase to upper thighs using a [email or web address] digital PET/CT system. Theblood glucose level prior [...] 70 - 100 mg/dL 10/29/2021 7:34 EDT [facility] HN LAB POC COMMENT (GLUCOSE) Test Performed by Nursing Services 10/29/2021 7:34 EDT [facility] Blood CAPILLARY BLOOD / Unknown 10/26/2021 13:53 EDT 10/29/2021 7:34 EDT us Provider Unknown MD POINT OF CARE TEST ORDERABLE S Final Result [facility] [address] [place] [address] documented in this encounter Visit Diagnoses Diagnosis [...] 10/26/2021 documented in this encounter Care Teams Project Development Director Relationship Specialty Start Date End Date Eloina Brewer NP [address] [place] [address] [address] [place] [address] PCP - General 10/16/20 documented as of this encounter
--- OUTSIDE RECORDS SUMMARY | 2024-05-28 17:22 | XMS_ITS | Encounter Summary ---
Author Organization [facility] Address [address] [place] [address] Care Team Providers Care Electrostatic Painter Name Role Phone Patricia Ulloa MD Primary Care Provider Reason for Visit * Reason Onset Date Comments Other 09/15/2020 Living Will, DPO A Encounter Details Date Type Department Care Team (Late st Contact Info) Description 09/15/2020 Telephone [facility] Adult Primary Care - [address] [id number] Patricia Ulloa MD [address] [place] [phone] Other (Living Will, DPOA) Social History [...] on filedocumented in this encounter Care Teams Electrostatic Painter Relationship Specialty Start Date End Date Patricia Ulloa MD PCP - General Geriatric Medicine 08/31/20 10/15/20 documented as of this encounter
--- OUTSIDE RECORDS SUMMARY | 2024-05-28 17:22 | XMS_ITS | Encounter Summary ---
Author Organization [facility] Address [address] [place] [address] Care Team Providers Care Termite Treater Name Role Phone Eloina Brewer PROFESSIONAL SECURITY OFFICER Primary Care Provider [phone] Encounter Details Date Type Department Care Team (Latest Contact Info) Description 12/12/2021 10:30 EDT Phlebotomy Only [facility] Laboratory Services - [facility] ([facility] [address] [place] [phone] Hypertension (Primary Dx) Social History Tobacco Use [...] 136 - 145 mmol/L 12/12/2021 12:48 EDT [facility] Potassium 4.2 3.5 - 5.0 mmol/L 12/12/2021 12:48 T [facility] Chloride 105 96 - 110 mmol/L 12/12/2021 12:48 T [facility] CO2 Total 21(L) 22 - 32 mmol/L 12/12/2021 12:48 T [facility] Anion Gap 17(H) 5 - 14 12/12/2021 12:48 [facility] Glucose 112(H) 70 - 100 mg/dL 12/12/2021 12:48 [facility] Calcium 9.0 8.5 - 10.5 mg/dL 12/12/2021 12:48 [facility] BUN 21 10 - 26 mg/dL 12/12/2021 12:48 [facility] Creatinine 1.16(H) 0.52 - 1.04 mg/dL 12/12/2021 12:48 [facility] eGFR 46(L) >60 mL/min/1.73 m2 12/12/2021 12:48 [facility] Blood VENOUS BLOOD / Unknown Venipuncture / Unknown 12/12/2021 10:40 EDT 12/12/2021 10:41 EDT us Arleth Sylvester MD CHEMISTRY & BLOOD GAS O RDERABLES Final Result [facility] [address] [place] [address] documented in this encounter Visit Diagnoses Diagnosis Hypertension- Primary Unspecified essential hypertension documented in this encounter Care Teams Termite Treater Relationship Specialty Start Date End Date Eloina Brewer NP [address] [place] [phone] PCP - General 10/16/20 documented as of this encounter
--- OUTSIDE RECORDS SUMMARY | 2024-05-28 17:22 | XMS_ITS | Encounter Summary ---
Author Organization [facility] Address [address] [place] [address] Care Team Providers Care Obstetrics Tech Name Role Phone Eloina Brewer NP Primary Care Provider [phone] Encounter Details Date Type Department Care Team (Latest Contact Info) Description 03/07/2021 Transcribe Orders [facility] [phone] Eloina Brewer NP [address] [place] [address] Pre-diabetes (Primary Dx); Hypertension, essential Social History [...] 0.47 - 4.68 ??IU/mL 03/26/2021 12:06 EST [facility] Blood VENOUS BLOOD / Unknown Venipuncture / Unknown 03/26/2021 10:07 EST 03/26/2021 10:08 EST Narrative [facility] - 03/26/2021 12:06 EST The results of this assay can be falsely lowered due to the consumption of Biotin. [employer] REHABILITATION COORDINATOR CHEMISTRY & BLOOD GAS ORDER GORDON Final Result Performing Organization Address [facility] de Phone Number [facility] [address] [place] [address] * (ABNORMAL) HEMOGLOBIN A1C (03/26/2021 10:07 EST) Hemoglobin A1c 5.9(H) <5.7 % 03/26/2021 13:39 [facility] Comment: Glycemic Status References: Normal: ??<5.7% Pre-Diabetes: ??5.7% - 6.4% Diagnostic of Diabetes: ??> or = 6.5% (if confirmed) Est Avg Glucose 123 mg/dL 13:39 [facility] Comment:The eAG represents t he A1c result expressed as average glucose in mg/dL. Blood VENOUS BLOOD / Unknown Venipuncture / Unknown 03/26/2021 10:07 EST 03/26/2021 10:08 EST [employer] CHEMISTRY & BLOOD GAS ORDER GORDON Final Result Performing Organization Address [facility] Co de Phone Number [facility] [address] [place] [address] documented in this encounter Visit Diagnoses Diagnosis Pre-diabetes- Primary Other abnormal glucose Hypertension, essential Unspecified essential hypertension documented in this encounter Care Teams Obstetrics Tech Relationship Specialty Start Date End Date Eloina Brewer NP [address] [facility] [address] [place] [phone] PCP - General 10/16/20 documented as of this encounter
--- OUTSIDE RECORDS SUMMARY | 2024-05-28 17:22 | XMS_ITS | Encounter Summary ---
Author Organization [facility] Address [address] [place] [address] Care Team Providers Care Business Risk Analyst Name Role Phone Eloina Brewer LEARNING SOLUTIONS SPECIALIST Primary Care Provider [phone] Encounter Details Date Type Department Care Team (Latest Contact Info) Description 03/26/2021 10:00 EST Phlebotomy Only [facility] Services - [address] [phone] Pre-diabetes; Hypertension, essential Social History Tobacco Use [...] 0.47 - 4.68 ??IU/mL 03/26/2021 12:06 EST [facility] Blood VENOUS BLOOD / Unknown Venipuncture / Unknown 03/26/2021 10:07 EST 03/26/2021 10:08 EST Narrative [facility] - 03/26/2021 12:06 EST The results of this assay can be falsely lowered due to the consumption of Biotin. [employer] LEARNING SOLUTIONS SPECIALIST CHEMISTRY & BLOOD GAS ORDER GORDON Final Result [facility] [address] [place] [address] * (ABNORMAL) HEMOGLOBIN A1C (03/26/2021 10:07 EST) Hemoglobin A1c 5.9(H) <5.7 % 03/26/2021 13:39 [facility] Comment: Glycemic Status References: Normal: ??<5.7% Pre-Diabetes: ??5.7% - 6.4% Diagnostic of Diabetes: ??> or = 6.5% (if confirmed) Est Avg Glucose 123 mg/dL 13:39 EST [facility] Comment:The eAG represents t he A1c result expressed as average glucose in mg/dL. Blood VENOUS BLOOD / Unknown Venipuncture / Unknown 03/26/2021 10:07 EST 03/26/2021 10:08 EST [employer] LEARNING SOLUTIONS SPECIALIST CHEMISTRY & BLOOD GAS ORDER GORDON Final Result [facility] [address] [place] [address] documented in this encounter Visit Diagnoses Diagnosis Pre-diabetes Other abnormal glucose Hypertension, essential Unspecified essential hypertension documented in this encounter Care Teams Business Risk Analyst Relationship Specialty Start Date End Date Eloina Brewer NP [address] [place] [phone] PCP - General 10/16/20 documented as of this encounter
--- OUTSIDE RECORDS SUMMARY | 2024-05-28 17:22 | XMS_ITS | Encounter Summary ---
Author Organization [facility] Address [address] [place] [address] Care Team Providers Care Gum Machine Filler Name Role Phone Eloina Brewer INVENTORY SPECIALIST Primary Care Provider [phone] Encounter Details Date Type Department Care Team [...] on filedocumented in this encounter Care Teams Gum Machine Filler Relationship Specialty Start Date End Date Eloina Brewer NP [address] [facility] [address] [place] [phone] PCP - General 10/16/20 documented as of this encounter
--- OUTSIDE RECORDS SUMMARY | 2024-05-28 17:22 | XMS_ITS | Encounter Summary ---
Author Organization [facility] Address [address] [place] [address] Care Team Providers Care Flexible Shaft Winder Name Role Phone DaniellaTomasEloina L HEALTH SCIENCES PROGRAM COORDINATOR Primary Care Provider [phone] Reason for Visit * Reason Comments Altered [...] Expiration Date Visits Re quested Visits Authorized [id number] 1 1 Encounter Details Date Type Department Care Team (Late st Contact Info) Description 12/17/2021 17:12 EDT - 12/18/2021 17:58 EDT Hospital Encounter [facility] General Medicine Unit [address] [place], [place] [id number] Sylvester Medeiros MD Doyle-Burr, Caleb J, MD [address] [phone] Sarah Prater MD MPH [address] [facility], Level 1 [place] [phone] Dante Huerta MD [address] [place] [address] Riley Perera MD 111 [facility], [facility] 1 [place] [address] Dementia with behavioral disturbance, unspecified dementia type (HCC-CMS) (HCC) (Primary Dx) Discharge Disposition: Nursing Facility (Mcc Care Bed) Social History Tobacco Use Types [...] Date: 12/17/21 Discharge Date: 12/18/2021 Disposition (location): [facility] Condition at Discharge: Stable Reason for Admission (chief complaint): Agitation, hallucinations Principal/Final Diagnosis: Dementia with behavioral disturbance, unspecified dementia type (HCC-CMS) ([facility]) Additional Problems Managed in the Hospital: Active Hospital Problems Diagnosis Date Noted ??? *Dementia with behavioral disturbance, unspecified dementia type (HCC-CMS) ([facility]) 12/18/2021 ??? Agitation 12/17/2021 ??? Constipation 09/19/2020 ??? Hypertension 09/19/2020 ??? Hypothyroidism 09/19/2020 ??? Personal history of fall 09/19/2020 Resolved Hospital Problems No resolved problems to display. Transition of care: [facility] Transition of Care report automatically routed to PCP office on discharge.Additional handoff communication performed via: Secure KDW Staff Message - DC summ and note sent to Dr. Antoine (with whom pt is establishing care on 01/02). Clinical Issues Needing Follow-up 1. Pertinent medication changes: - Continued on home metoprolol 25mg daily, levothyroxine 25mcg daily, quetiapine 50mg BID 2. Recommended follow-up tests/procedures needed: - Follow up with Dr. Antoine on 01/02 - Recommend continuing attempts to obtain records from prior PCP ([facility]) - Would obtain formal cognitive assessment [...] and history of falls, who presented to [facility] on 12/17 with with??progressively worsening??agitation and altered [...] Office Visit Medium with Margret Antoine MD [facility] Adult Primary Care - [place] ([facility]) [address] [facility] [address] Plan discussed at length with Dr. Kush [...] Disposition Code Departure Means Destination Nursing Facility (Wafer Production Worker Care Bed) documented in this encounter Progress Notes * Samantha Stewart RN - 12/18/2021 1758 EDT Nursing Discharge Note D: Patient noted with discharge orders to: [facility]. A: Prescriptions e-scripted. Reviewed discharge instructions and prescriptions with Patient and Other IV d/c'd. Belongings collected and sent home with patient. Report called to Omayra at [facility]. R: DaughterYris, verbalized understanding of discharge instructions and denied further questions. SAMANTHA STEWART RN 12/18/2021 18:09 * Stephany Ma - 12/18/2021 1630 EDT Call from Pt daughter. They have found a bed at [facility]-adult family home. They would like to come tonite at 6pm to pick her up . MD aware and plan to DC to go with family. They will transport to her adult home. Advised to put applications in for NHP . They are working on LTC medicaid. [id number] * Nichole Spain RN - 12/18/2021 1431 [...] LDA for any identified wounds ??? Add [place] image for any suspected PI ??? Order [...] Mom on the list for memorycare (? [place]) but was on a 5 year wait list. She states she has been in touch with [facility] dealing with dementia patients and she will call them again today to see if pt canhouse there until she goes to [place]. She is requesting placement at this time. I reviewed choices and fact that we would need to rapidly expand search from the hospital. She does understand that. I alsoreviewed the fact that pt may soon become group home care and that medicare may no longer pay for hospital. She does understand. CM will follow Stephany Ma,RNCCM #[id number] * Kristen Gasca MD - 12/18/2021 0606 [...] ago - hit head. Startedhallucinating 2y ago [place] - had very high BP, none specifically [...] of cognitive impairment #Hx of falls - [employer] Seroquel 50 mg BID - Delirium + [...] discovered in the spring when admitted in [facility], prompting PET scan. - Unclear at this time if patient would like to pursue further work-up. Query MOCA, will need formal capacity evaluation. Daughter at this time (HCP) recognizes that patient is FULL CODE, though alsoendorses statements like just kill me now. May warrant palliative involvement for further elucidation of GOC in the future. ?? Chronic/resolved issues: #HTN: [employer] metoprolol 25 mg #CKDIII: baseline 1.1-1.2, though limited data in last year. Trend daily, avoid nephrotoxins #Hypothyroidism: [employer] Levothyroxine 25 mcg, TSH therapeutic #Chronic constipation: [employer] senna and miralax PRN Diet: geriatric diet [...] Huerta MD 12/18/21 13:14 * Uli Barrow [facility] - 12/17/2021 2014 EDT SW consult [...] working with [facility] [employer] to apply for [facility] and there are no finances for caregivers or NH level of care at this time. At this time family is adamant they cannot care for Meredith at home. It does seem that Meredith's behavior is very difficult to manage and unsafe in private home. [place] documented in this encounter H&P Notes * Surya Gaitan MD - 12/17/2021 5633 EDT Medicine Admission History & Physical Service [...] any visual. She notes she is in [place] and its December 2021. She knowns she [...] possible lung lesions component via mets/paraneoplastic - [employer] Seroquel 50 mg BID - s/p Olanzapine 7.5 mg in ED - CT H/Cervical pending - Delirium + Fall precautions - TSH, B12, Folate pending - PT/OT pending - Nutrition c/s #Lung lesion: 3.9 cm lobulated/spiculated 12/12 CT scan; - Not discussed with patient/family will need further discussion in AM but apparently aware per notes from ED visit Chronic/resolved issues: #HTN: [employer] lisinopril + Metoprolol 25 mg #CKDIII: baseline [...] follow up with PCP who presents to [facility] with increasing agitated behaviors and delusions. No [...] in lowest position, patient in view of kiln charger and community health promoter. * Sarah Prater MD MPH - 12/18/2021 [...] with behavioral disturbance, unspecified dementia type (HCC-CMS) ([facility]) * Tanisha Alcala - 12/17/2021 2332 [...] the patient had an acute mental status oil change technician the past several days to a week [...] a visitor, reported not thinking clearly. This Software Developer performeda FAST-Exam on the patient, which was negative. Patient reported not feeling safe due to own thinking. Patient preferred to talk further in private setting - forest nursery supervisor aware. documented in this encounter Miscellaneous Notes [...] CT ORDERABLES Final Result * COVID-19 TEST [facility] PCR (12/17/2021 23:38 EDT) Swab BOTH ANTERIOR NARES / Unknown Swab / Unknown 12/17/2021 23:38 EDT 12/17/2021 23:40 EDT Avni Torres MD MICROBIOLOGY - NERAL ORDERABLES Final Result [facility] [address] [place] [address] * COVID-19 TESTING (12/17/2021 23:38 EDT) COVID-19 rt-PCR Result Negative Negative 12/18/2021 1:02 EDT [facility] Comment: This test has not [...] history, and epidemiological information. Performed on the [employer] GeneXpert Instrument Performing Lab GeneXpert [facility] Lab 12/18/2021 1:02 EDT [facility] Swab BOTH ANTERIOR NARES / Unknown Swab / Unknown 12/17/2021 23:38 EDT 12/17/2021 23:40 EDT Avni Torres MD MICROBIOLOGY - NERWV ORDERABLES Final Result [facility] [address] [place] [address] * (ABNORMAL) URINE CHEMICAL (DIP) & SEDIMENT (MICRO) WITH REFLEX TO CULTURE (12/17/2021 22:20 EDT) Color UA Colorless Colorless, Yellow 12/17/2021 22:32 EDT [facility] Clarity UA Clear Clear 12/17/2021 22:32 EDT [facility] Glucose UA Negative Negative 12/17/2021 22:32 EDT [facility] Bilirubin UA Negative Negative 12/17/2021 22:32 [facility] Ketones UA 1+(A) Negative 12/17/2021 22:32 [facility] Specific [place], Urine 1.004 1.001 - 1.035 12/17/2021 22:32 [facility] Blood UA Negative Negative 12/17/2021 22:32 [facility] Urobilinogen UA Normal Normal mg/dL 022 22:32 [facility] Nitrite UA Negative Negative 12/17/2021 22:32 [facility] Leukocyte Esterase UA Negative Negative 12/17/2021 22:32 [facility] Protein UA Negative Negative 12/17/2021 22:32 [facility] pH, UA 6.0 4.6 - 8.0 12/17/2021 22:32 [facility] Urine RBC Count, Auto 0 - 2 0 - 2 Cells/HPF 12/17/2021 22:32 [facility] Urine WBC Count, Auto 0 - 3 0 - 3 Cells/HPF 12/17/2021 22:32 [facility] Urine Squamous Count, Auto Few(A) None Seen Cells/HPF 12/17/2021 22:32 [facility] Urine Hyaline Cast Count, Auto <=10 <=10 Casts/LPF 12/17/2021 22:32 [facility] Urine Bacteria Count, Auto None Seen None Seen Bacteria/HPF 12/17/2021 22:32 [facility] Urine URINE SPECIMEN COLLECTION, CLEAN CATCH / Unknown Urine Collect / Unknown 12/17/2021 22:20 EDT 12/17/2021 22:25 [facility] LABORATORY SERVICES - 12/17/2021 22:32 [facility] NOTE: Reflex to Urine Culture test is not indicated based on Urine Sediment Analysis results. Urine Sediment Analysis results are unreliable on urines that are unrefrigerated for >2 hrs or refrigerated >8 hrs. us Avni Torres MD URINALYSIS ORDERA BLES Final Result [facility] [address] [place] [address] * (ABNORMAL) COMPLETE BLOOD COUNT AND DIFFERENTIAL (12/17/2021 20:58 EDT) WBC 9.22 4.00 - 12.40 K/cmm 12/17/2021 21:23 [facility] RBC 4.42 3.86 - 5.04 M/cmm 12/17/2021 21:23 [facility] Hemoglobin 13.1 11.6 - 15.2 gm/dL 12/17/2021 21:23 [facility] HCT 38.5 34.9 - 44.4 % 12/17/2021 21:23 [facility] MCV 87 81 - 98 fl 12/17/2021 21:23 [facility] MCH 29.6 26.7 - 33.3 pg 12/17/2021 21:23 [facility] MCHC 34.0 32.1 - 35.9 gm/dL 12/17/2021 21:23 [facility] RDW-CV 14.0 <14.7 % 12/17/2021 21:23 [facility] RDW-SD 44.7 <50.4 fl 12/17/2021 21:23 [facility] PLT 225 141 - 377 K/cmm 12/17/2021 21:23 [facility] MPV 11.5 9.5 - 12.7 fl 12/17/2021 21:23 [facility] % Neutrophils 65.9 % 12/17/2021 21:23 [facility] % Lymphocytes 24.1 % 12/17/2021 21:23 [facility] % Monocytes 7.4 % 12/17/2021 21:23 [facility] % Eosinophils 0.9 % 12/17/2021 21:23 [facility] % Basophils 0.8 % 12/17/2021 21:23 [facility] % Immature Grans 0.9 % 12/18/19 21:23 [facility] Absolute Neutrophils 6.09 2.20 - 8.85 K/cmm 12/17/2021 21:23 [facility] Absolute Lymphocytes 2.22 1.09 - 3.30 K/cmm 12/17/2021 21:23 [facility] Absolute Monocytes 0.68 0.10 - 0.80 K/cmm 12/17/2021 21:23 [facility] Absolute Eosinophils 0.08 0.03 - 0.61 K/cmm 12/17/2021 21:23 [facility] ABS Basophils 0.07 0.01 - 0.11 K/cmm 12/17/2021 21:23 [facility] Absolute Immature Grans 0.08(H) 0.00 - 0.06 K/cmm 12/17/2021 21:23 [facility] Type of Differential: Auto 12/17/2021 21:23 [facility] Blood VENOUS BLOOD / Unknown Venipuncture / Unknown 12/17/2021 20:58 EDT 12/17/2021 21:13 EDT Avni Torres MD PACKAGES & DNA TN OBE ORDERABLES Final Result [facility] [address] [place] [address] * FOLATE (12/17/2021 20:57 EDT) Folate 7.1 See Note ng/mL 12/18/2021 8:57 T [facility] Comment: Reference Ranges for Folate: [...] ORDER GORDON Final Result Performing Organization Address City/[facility]/ZIP Co de Phone Number [facility] [address] [place] [address] * VITAMIN B12 (12/17/2021 20:57 EDT) Vitamin B12 583 211 - 911 pg/mL 12/18/2021 8:54 EDT [facility] Blood VENOUS BLOOD / Unknown Venipuncture / Unknown 12/17/2021 20:57 EDT 12/17/2021 21:17 EDT Surya aGitan MD CHEMISTRY & BLOOD GAS ORDER GORDON Final Result Performing Organization Address [facility] Co de Phone Number [facility] [address] [place] [address] * TSH (12/17/2021 20:57 EDT) TSH 3.37 0.47 - 4.68 mIU/L 12/18/2021 0:48 EDT [facility] Blood VENOUS BLOOD / Unknown Venipuncture / Unknown 12/17/2021 20:57 EDT 12/17/2021 21:17 EDT Narrative [facility] - 12/18/2021 0:48 EDT The results of this assay can be falsely lowered due to the consumption of Biotin. Surya Gaitan MD CHEMISTRY & BLOOD GAS ORDER GORDON Final Result Performing Organization Address City/[facility]/ZIP Co de Phone Number [facility] [address] [place] [address] * (ABNORMAL) COMPREHENSIVE METABOLIC PANEL (CMP) (12/17/2021 20:57 EDT) Sodium 140 136 - 145 mmol/L 12/17/2021 21:29 EDT [facility] Potassium 4.1 3.5 - 5.0 mmol/L 12/17/2021 21:29 [facility] Chloride 102 96 - 110 mmol/L 12/17/2021 21:29 [facility] CO2 Total 20(L) 22 - 32 mmol/L 12/17/2021 21:29 [facility] Glucose 96 70 - 100 mg/dL 12/17/2021 21:29 [facility] BUN 21 10 - 26 mg/dL 12/17/2021 21:29 [facility] Creatinine 1.22(H) 0.52 - 1.04 mg/dL 12/17/2021 21:29 [facility] eGFR 43(L) >60 mL/min/1.7 3m2 12/17/2021 21:29 [facility] Total Protein 6.9 6.3 - 8.2 g/dL 12/17/2021 21:29 [facility] Albumin 4.1 3.4 - 4.9 g/dL 12/17/2021 21:29 [facility] Alkaline Phosphatase 96 38 - 126 U/L 12/17/2021 21:29 [facility] AST 21 15 - 46 U/L 12/17/2021 21:29 [facility] ALT 9 <35 U/L 12/17/2021 21:29 [facility] Bilirubin, Total 0.8 <1.4 mg/dL 12/18/19 21:29 [facility] Calcium 9.6 8.5 - 10.5 mg/dL 12/17/2021 21:29 [facility] Albumin/Globulin Ratio 1.5 1.0 - 2.5 12/17/2021 21:29 [facility] Anion Gap 18(H) 5 - 14 12/17/2021 21:29 [facility] Blood VENOUS BLOOD / Unknown Venipuncture / Unknown 12/17/2021 20:57 T 12/17/2021 21:17 EDT Avni Torres MD CHEMISTRY & BLOOD GAS ORDERABLES Final Result [facility] [address] [place] [address] documented in this encounter Visit Diagnoses Diagnosis [...] 4 mg 1 12/18/2021 polyethylene glycol 3350 ([place] RALAX) packet 17 g 1 12/18/2021 ramelteon [...] 12/03 documented in this encounter Care Teams Flexible Shaft Winder Relationship Specialty Start Date End Date Eloina Brewer NP [address] [place] [address] [address] [place] [address] PCP - General 10/16/20 documented as of this encounter
--- OUTSIDE RECORDS SUMMARY | 2024-05-28 17:22 | XMS_ITS | Encounter Summary ---
Author Organization [facility] Address [address] [place] [address] Care Team Providers Care Director Ehs Name Role Phone Eloina Brewer MOTORIZED SQUAD COMMANDING OFFICER Primary Care Provider [phone] Encounter Details Date Type Department Care Team (Latest Contact Info) Description 10/02/2021 11:00 EDT Phlebotomy Only [facility] Laboratory Services - [facility] [place] [address] [place] [phone] Hyperpotassemia (Primary Dx) Social History Tobacco Use [...] 136 - 145 mmol/L 10/02/2021 12:45 EDT [facility] Potassium 4.7 3.5 - 5.0 mmol/L 10/02/2021 12:45 T [facility] Chloride 101 96 - 110 mmol/L 10/02/2021 12:45 T [facility] CO2 Total 29 22 - 32 mmol/L 10/02/2021 12:45 [facility] Anion Gap 9 5 - 14 10/02/2021 12:45 [facility] Glucose 99 70 - 100 mg/dL 10/02/2021 12:45 [facility] Calcium 9.3 8.5 - 10.5 mg/dL 10/02/2021 12:45 [facility] BUN 40(H) 10 - 26 mg/dL 10/02/2021 12:45 [facility] Creatinine 1.31(H) 0.52 - 1.04 mg/dL 10/02/2021 12:45 [facility] eGFR 40(L) >60 mL/min/1.73 m2 10/02/2021 12:45 [facility] Blood VENOUS BLOOD / Unknown Venipuncture / Unknown 10/02/2021 11:10 EDT 10/02/2021 11:10 EDT us Eloina Brewer NP CHEMISTRY & BLOOD GAS ORDER GORDON Final Result [facility] [address] [place] [address] documented in this encounter Visit Diagnoses Diagnosis Hyperpotassemia- Primary documented in this encounter Care Teams Director Ehs Relationship Specialty Start Date End Date Eloina Brewer NP [address] [place] [address] PCP - General 10/16/20 documented as of this encounter
--- OUTSIDE RECORDS SUMMARY | 2024-05-28 17:22 | XMS_ITS | Encounter Summary ---
Author Organization [facility] Address [address] [place] [address] Care Team Providers Care Briar Shop Supervisor Name Role Phone Patricia Ulloa MD Primary Care Provider Reason for Visit * Reason Onset Date Comments Appointment Related 09/13/2020 Encounter Details Date Type Department Care Team (Late st Contact Info) Description 09/13/2020 Telephone [facility] Adult Primary Care - [address] [id number] Patricia Ulloa MD [address] [place] [phone] Appointment Related Social History Tobacco Use [...] on filedocumented in this encounter Care Teams Briar Shop Supervisor Relationship Specialty Start Date End Date Patricia Ulloa MD PCP - General Geriatric Medicine 08/31/20 10/15/20 documented as of this encounter
--- OUTSIDE RECORDS SUMMARY | 2024-05-28 17:22 | XMS_ITS | Encounter Summary ---
Author Organization [facility] Address [address] [place] [address] Care Team Providers Care Power Saw Operator Name Role Phone Eloina Brewer NP Primary Care Provider [phone] Patricia Nails MD Primary Care Provider Reason for Visit * Reason Onset Date Comments Hypertension 10/05/2020 Encounter Details Date Type Department Care Team (Late st Contact Info) Description 10/05/2020 Telephone [facility] Adult Primary Care - [address] [phone] Patricia Nails MD [address] [place] [phone] Hypertension Social History Tobacco Use Types [...] daughter Yris. Patient has moved back to [place]. She has an appointment there and will be receiving care from [facility]. They will follow up [...] message sent to Home health [facility] with Dr. nails's plan from [...] on filedocumented in this encounter Care Teams Power Saw Operator Relationship Specialty Start Date End Date Eloina Brewer NP [address] [place] [phone] PCP - General 10/16/20 Patricia Nails MD [address] [place] [phone] PCP - General Geriatric Medicine 08/31/20 10/15/20 documented as of this encounter
--- OUTSIDE RECORDS SUMMARY | 2024-05-28 17:22 | XMS_ITS | Encounter Summary ---
Author Organization [facility] Address [address] [place] [address] Care Team Providers Care Visiting Teacher Name Role Phone Eloina Brewer HEAD ANIMAL KEEPER Primary Care Provider [phone] Encounter Details Date Type Department Care Team (Late st Contact Info) Description 11/04/2022 Lab Requisition [facility] Pathology & Laboratory Medicine - [address] [address] Outr Resulting Lab, Provider Social History Tobacco [...] Antigen Detection Negative Negative 11/04/2022 22:26 EDT [facility] Urine URINE / Unknown 11/04/2022 3 :00 EDT 11/04/2022 16:53 EDT us Provider Outr Resulting Lab MICROBIOLOGY - GENER AL ORDERABLES Final Result [facility] [address] [place] [address] documented in this encounter Visit Diagnoses Not on filedocumented in this encounter Care Teams Visiting Teacher Relationship Specialty Start Date End Date Eloina Brewer NP [address] [place] [phone] PCP - General 10/16/20 documented as of this encounter
--- OUTSIDE RECORDS SUMMARY | 2024-05-28 17:22 | XMS_ITS | Encounter Summary ---
Author Organization [facility] Address [address] [place] [address] Care Team Providers Care Oracle Soa Architect Name Role Phone Eloina Brewer COKE OVEN MASON Primary Care Provider +[phone] Reason for Visit * Reason Comments Dementia [...] Expiration Date Visits Re quested Visits Authorized [id number] 1 1 Encounter Details Date Type Department Care Team (Late st Contact Info) Description 12/15/2021 14:28 EDT - 12/15/2021 20:[address] [facility] Emergency Department - [facility] [address] [place], [place] [address] Alo Martinez, PA-C [address] [place] [address] Dementia associated with other underlying [...] use once during the day as needed. technical services rep is working on a plan for housing [...] or Self Fdc documented in this encounter Progress Notes * Agatha Kumar - 12/15/2021 191 EDT [facility] Note Met with patient and her [...] to work with provider Eloina Brewer in [facility] which has been tough given distance. She also confirms that as such, she is not connected with a pet caretaker through a local PC and has not had any support in seeking a retirement care bed at a SNF. I did [...] cn discuss with LOS Martinez. --Agatha Kumar [employer] HAND manager social services documented in this encounter ED Notes * [...] tearful. * Alo Martinez PA-C - 12/15/2021 3843 EDT Images from the original note were [...] hoping to get her mother into a mcc. She does have an appointment coming up with aging well, high school social studies teacher was involved with this case and spent a large amount of time with both patient and daughter at this time beinga Friday night it would be impossible to get her into a mcc high school social studies teacher will stay involved with her. The daughter [...] since September. They have been looking for mcc placement though the patient does not want [...] Abnormality Status --------- ------ POCT URINE DIPSTICK, CLI...[[id number]] Abnormal Final result POCT CSN BARCODE URINE D...[[id number]] Final result Please view results for these [...] in tears when discussing mother's situation with card writer hand. She states that she just cannot take care of her mother any more and she has done everything she possibly can for her, yet she just keeps declining. Pt is calm and cooperative with card writer hand though is argumentative with her daughter. She tells card writer hand that the daughter is the problem. Pt [...] 15:18 EDT) Hold Hold 12/15/2021 16:30 EDT [facility] Blood VENOUS BLOOD / Unknown Venipuncture / Unknown 12/15/2021 15:18 EDT 12/15/2021 15:21 EDT us Alo Martinez PA-C LAB INFO SERVICE AND SUPPORT & PHONE RESULT Final Result Performing Organization Address [facility]/ZIP Co de Phone Number [facility] [address] [place] [address] * HOLD BLUE TOP (12/15/2021 15:18 EDT) Hold Hold 12/15/2021 16:30 EDT [facility] Blood VENOUS BLOOD / Unknown Venipuncture / Unknown 12/15/2021 15:18 EDT 12/15/2021 15:21 EDT Alo Martinez PA-C LAB INFO SERVICE AND SUPPORT & PHONE RESULT Final Result Performing Organization Address City/[facility]/ZIP Co de Phone Number [facility] [address] [place] [address] * (ABNORMAL) COMPREHENSIVE METABOLIC PANEL (CMP) (12/15/2021 15:18 EDT) Sodium 142 136 - 145 mmol/L 12/15/2021 15:53 EDT [facility] Potassium 4.5 3.5 - 5.0 mmol/L 12/15/2021 15:53 EDT [facility] Chloride 102 96 - 110 mmol/L 12/15/2021 15:53 EDT [facility] CO2 Total 23 22 - 32 mmol/L 12/15/2021 15:53 EDT [facility] Glucose 111(H) 70 - 100 mg/dL 12/15/2021 15:53 [facility] BUN 22 10 - 26 mg/dL 12/15/2021 15:53 [facility] Creatinine 1.20(H) 0.52 - 1.04 mg/dL 12/15/2021 15:53 [facility] eGFR 44(L) >60 mL/min/1.7 3m2 12/15/2021 15:53 [facility] Total Protein 7.3 6.3 - 8.2 g/dL 12/15/2021 15:53 [facility] Albumin 4.2 3.4 - 4.9 g/dL 12/15/2021 15:53 [facility] Alkaline Phosphatase 96 38 - 126 U/L 12/15/2021 15:53 [facility] AST 21 15 - 46 U/L 12/15/2021 15:53 [facility] ALT 9 <35 U/L 12/15/2021 15:53 [facility] Bilirubin, Total 0.5 <1.4 mg/dL 12/16/19 15:53 [facility] Calcium 9.4 8.5 - 10.5 mg/dL 12/15/2021 15:53 [facility] Albumin/Globulin Ratio 1.4 1.0 - 2.5 12/15/2021 15:53 [facility] Anion Gap 17(H) 5 - 14 12/15/2021 15:53 [facility] Blood VENOUS BLOOD / Unknown Venipuncture / Unknown 12/15/2021 15:18 EDT 12/15/2021 15:21 EDT us Alo Martinez PA-C CHEMISTRY & BLOOD GAS ORDERAB LES Final Result [facility] [address] [place] [address] * POCT CSN BARCODE URINE DIPSTICK (12/15/2021 15:17 EDT) Urine URINE SPECIMEN COLLECTION, CLEAN CATCH / Unknown Urine Collect / Unknown 12/15/2021 15:17 EDT 12/15/2021 15:17 EDT us Alo Martinez PA-C LAB INFO SERVICE AND SUPPORT & PHONE RESULT Final Result [facility] [address] [place] [address] * (ABNORMAL) COMPLETE BLOOD COUNT AND DIFFERENTIAL (12/15/2021 15:17 EDT) WBC 9.27 4.00 - 12.40 K/cmm 12/15/2021 15:30 [facility] RBC 4.42 3.86 - 5.04 M/cmm 12/15/2021 15:30 [facility] Hemoglobin 13.2 11.6 - 15.2 gm/dL 12/15/2021 15:30 [facility] HCT 39.3 34.9 - 44.4 % 12/15/2021 15:30 [facility] MCV 89 81 - 98 fl 12/15/2021 15:30 [facility] MCH 29.9 26.7 - 33.3 pg 12/15/2021 15:30 [facility] MCHC 33.6 32.1 - 35.9 gm/dL 12/15/2021 15:30 [facility] RDW-CV 14.2 <14.7 % 12/15/2021 15:30 [facility] RDW-SD 45.7 <50.4 fl 12/15/2021 15:30 [facility] PLT 219 141 - 377 K/cmm 12/15/2021 15:30 [facility] MPV 11.0 9.5 - 12.7 fl 12/15/2021 15:30 [facility] % Neutrophils 75.1 % 12/15/2021 15:30 [facility] % Lymphocytes 17.4 % 12/15/2021 15:30 [facility] % Monocytes 6.0 % 12/15/2021 15:30 T [facility] % Eosinophils 0.2 % 12/15/2021 15:30 [facility] % Basophils 0.5 % 12/15/2021 15:30 [facility] % Immature Grans 0.8 % 12/16/19 15:30 [facility] Absolute Neutrophils 6.96 2.20 - 8.85 K/cmm 12/15/2021 15:30 [facility] Absolute Lymphocytes 1.61 1.09 - 3.30 K/cmm 12/15/2021 15:30 [facility] Absolute Monocytes 0.56 0.10 - 0.80 K/cmm 12/15/2021 15:30 [facility] Absolute Eosinophils 0.02(L) 0.03 - 0.61 K/cmm 12/15/2021 15:30 [facility] ABS Basophils 0.05 0.01 - 0.11 K/cmm 12/15/2021 15:30 [facility] Absolute Immature Grans 0.07(H) 0.00 - 0.06 K/cmm 12/15/2021 15:30 [facility] Type of Differential: Auto 12/15/2021 15:30 [facility] Blood VENOUS BLOOD / Unknown Venipuncture / Unknown 12/15/2021 15:17 EDT 12/15/2021 15:21 EDT us Alo Martinez PA-C PACKAGES & DNA PROBE ORDERABL ES Final Result [facility] [address] [place] [address] * (ABNORMAL) POCT URINE DIPSTICK, CLINITEK (12/15/2021 15:01 EDT) Color, UA Yellow Yellow 12/15/2021 15:03 [facility] Clarity, UA Clear Clear 12/15/2021 15:03 EDT [facility] Glucose, UA Negative Negative 12/15/2021 15:03 [facility] Bilirubin, UA Negative Negative 12/15/2021 15:03 [facility] Ketones, UA 1+(A) Negative 12/15/2021 15:03 [facility] Specific [place], Urine 1.020 1.001 - 1.035 12/15/2021 15:03 [facility] Blood, UA Negative Negative 12/15/2021 15:03 [facility] pH, UA 5.5 4.6 - 8.0 12/15/2021 15:03 [facility] Protein, UA Negative Negative 12/15/2021 15:03 [facility] Urobilinogen, UA 0.2 0.2 - 1.0 mg/dL 12/15/2021 15:03 [facility] Nitrite, UA Negative Negative 12/15/2021 15:03 [facility] Leuk Esterase Trace(A) Negative 12/15/2021 15:03 [facility] HN LAB COMMENT (CLINITEK, UR) Test performed at Emergency Department 12/15/2021 15:03 [facility] Urine URINE SPECIMEN COLLECTION, CLEAN CATCH / Unknown 12/15/2021 15:01 EDT 12/15/2021 15:03 EDT Alo Martinez PA-C POINT OF CARE TEST ORDERABLES Final Result [facility] [address] [place] [address] documented in this encounter Visit Diagnoses Diagnosis Dementia associated with other underlying disease with behavioral disturbance ([facility])- Primary Primary hypertension Unspecified essential hypertension [...] RN) documented in this encounter Care Teams Oracle Soa Architect Relationship Specialty Start Date End Date Eloina Brewer NP [address] [place] [address] [address] [place] [phone] PCP - General 10/16/20 documented as of this encounter
--- OUTSIDE RECORDS SUMMARY | 2024-05-28 17:22 | XMS_ITS | Encounter Summary ---
Author Organization [facility] Address [address] [place] [address] Care Team Providers Care Living Specialist Name Role Phone Eloina Brewer SPRINKLER INSPECTOR Primary Care Provider [phone] Encounter Details Date Type Department Care Team [...] on filedocumented in this encounter Care Teams Living Specialist Relationship Specialty Start Date End Date Eloina Brewer NP [address] [facility] [address] [place] [phone] PCP - General 10/16/20 documented as of this encounter
--- OUTSIDE RECORDS SUMMARY | 2024-05-28 17:22 | XMS_ITS | Encounter Summary ---
Author Organization [facility] Address [address] [place] [address] Care Team Providers Care Architectural Intern Name Role Phone Patricia Ulloa MD Primary Care Provider Reason for Visit * Reason Onset Date Comments Medical Records 09/06/2020 Med Rec Release Encounter Details Date Type Department Care Team (Late st Contact Info) Description 09/06/2020 Telephone [facility] Adult Primary Care - [address] [address] Patricia Ulloa MD [address] [place] [phone] Medical Records (Med Rec Release) Social [...] Telephone Encounter - Iqra Rodriges - 09/06/2020 0796 EDT Outgoing mail to Pt. Medical record release forms that must be signed. documented in this encounter Plan of Treatment Not on file documented as of this encounter Visit Diagnoses Not on filedocumented in this encounter Care Teams Architectural Intern Relationship Specialty Start Date End Date Patricia Ulloa MD PCP - General Geriatric Medicine 08/31/20 10/15/20 documented as of this encounter
--- OUTSIDE RECORDS SUMMARY | 2024-05-28 17:22 | XMS_ITS | Referral Summary ---
Author Organization [facility] Address [address] [place] [address] Care Team Providers Care Cork Cutter Name Role Phone Eloina Brewer KNIFE SETTER Primary Care Provider Allergies Active Allergy Reactions [...] original. Patient has given permission for [facility] to verbally discuss the following [...] Advance Directives For more information, please contact: [phone] Documents on File Type Date Recorded Patient Bead Wire Insulator Expl anation Advance Directive 09/15/2020 13:33 Living Will-Signed 2000-03-03 * Full Code (Latest Code Status on File) Date Activated Date Inactivated Comments 12/18/2021 6:00 12/18/2021 20:03 Question Answer Comments When the patient has NO PULSE: Full Code / CPR Who Made the Decision? Default/Not Discussed Care Teams Cork Cutter Relationship Specialty Start Date End Date Eloina Brewer NP [address] [place] [phone] PCP - General 10/16/20
--- OUTSIDE RECORDS SUMMARY | 2024-05-28 17:22 | XMS_ITS | Encounter Summary ---
Author Organization [facility] Address [address] [place] [address] Care Team Providers Care Graduation Coach Name Role Phone Eloina Brewer INSPECTING ENGINEER Primary Care Provider Encounter Details Date Type [...] on filedocumented in this encounter Care Teams Graduation Coach Relationship Specialty Start Date End Date Eloina Brewer NP [address] [facility] [address] [place] [phone] PCP - General 10/16/20 documented as of this encounter
--- OUTSIDE RECORDS SUMMARY | 2024-05-28 17:22 | XMS_ITS | Encounter Summary ---
Author Organization [facility] Address [address] [place] [address] Care Team Providers Care Fence Maker Name Role Phone Eloina Brewer FOREST EXAMINER Primary Care Provider Reason for Visit * Reason Comments Constipation several days since l ast BM. Pt lives with daughter and is vague historian. asked daughter for laxitative several days ago. Per daughter does not drink enough fluids. Pt states nausea after eating. Encounter Details Date Type Department Care Team (Late st Contact Info) Description 11/16/2021 12:31 EDT - 11/16/2021 14:[address] [facility] Emergency Department - Main [address] [id number] Jakob Larios PA-C [address] [facility] [address] [place] [id number] Constipation, unspecified constipation type (Primary Dx) [...] Code Departure Means Destination Home or Self Retirement documented in this encounter ED Notes * [...] 134(L) 136 - 145 mmol/L 11/16/2021 13:50 [facility] Potassium 3.9 3.5 - 5.0 mmol/L 11/16/2021 13:50 [facility] Chloride 99 96 - 110 mmol/L 11/16/2021 13:50 [facility] CO2 Total 28 22 - 32 mmol/L 11/16/2021 13:50 [facility] Anion Gap 7 5 - 14 11/16/2021 13:50 [facility] Glucose 117(H) 70 - 100 mg/dL 11/16/2021 13:50 [facility] Calcium 8.5 8.5 - 10.5 mg/dL 11/16/2021 13:50 [facility] BUN 55(H) 10 - 26 mg/dL 11/16/2021 13:50 [facility] Creatinine 1.64(H) 0.52 - 1.04 mg/dL 11/16/2021 13:50 [facility] eGFR 31(L) >60 mL/min/1.73 m2 11/16/2021 13:50 [facility] Blood VENOUS BLOOD / Unknown Venipuncture / Unknown 11/16/2021 13:28 EDT 11/16/2021 13:33 EDT Jakob Larios PA-C CHEMISTRY & BLOOD GAS ORDERABLES Final Result [facility] [address] [place] [address] * (ABNORMAL) COMPLETE BLOOD COUNT AND DIFFERENTIAL (11/16/2021 13:27 EDT) WBC 6.68 4.00 - 12.40 K/cmm 11/16/2021 13:45 [facility] RBC 5.04 3.86 - 5.04 M/cmm 11/16/2021 13:45 [facility] Hemoglobin 14.8 11.6 - 15.2 gm/dL 11/16/2021 13:45 [facility] HCT 44.4 34.9 - 44.4 % 11/16/2021 13:45 [facility] MCV 88 81 - 98 fl 11/16/2021 13:45 [facility] MCH 29.4 26.7 - 33.3 pg 11/16/2021 13:45 [facility] MCHC 33.3 32.1 - 35.9 gm/dL 11/16/2021 13:45 [facility] RDW-CV 13.5 <14.7 % 11/16/2021 13:45 [facility] RDW-SD 43.7 <50.4 fl 11/16/2021 13:45 [facility] PLT 142 141 - 377 K/cmm 11/16/2021 13:45 [facility] MPV 11.9 9.5 - 12.7 fl 11/16/2021 13:45 [facility] % Neutrophils 71.7 % 11/16/2021 13:45 [facility] % Lymphocytes 16.2 % 11/16/2021 13:45 [facility] % Monocytes 11.1 % 11/16/2021 13:45 [facility] % Eosinophils 0.1 % 11/16/2021 13:45 [facility] % Basophils 0.3 % 11/16/2021 13:45 [facility] % Immature Grans 0.6 % 11/17/19 13:45 [facility] Absolute Neutrophils 4.79 2.20 - 8.85 K/cmm 11/16/2021 13:45 [facility] Absolute Lymphocytes 1.08(L) 1.09 - 3.30 K/cmm 11/16/2021 13:45 [facility] Absolute Monocytes 0.74 0.10 - 0.80 K/cmm 11/16/2021 13:45 [facility] Absolute Eosinophils 0.01(L) 0.03 - 0.61 K/cmm 11/16/2021 13:45 [facility] ABS Basophils 0.02 0.01 - 0.11 K/cmm 11/16/2021 13:[address] [facility] Absolute Immature Grans 0.04 0.00 - 0.06 K/cmm 11/16/2021 13:[address] [facility] Type of Differential: Auto 11/16/2021 13:[address] [facility] Blood VENOUS BLOOD / Unknown Venipuncture / Unknown 11/16/2021 13:27 EDT 11/16/2021 13:33 EDT Jakob Larios PA-C PACKAGES & DNA PROBE O RDERABLES Final Result [facility] [address] [place] [address] documented in this encounter Visit Diagnoses Diagnosis [...] 11/16/2021 documented in this encounter Care Teams Fence Maker Relationship Specialty Start Date End Date Eloina Brewer NP [address] [place] [address] [address] [place] [address] PCP - General 10/16/20 documented as of this encounter
--- OUTSIDE RECORDS SUMMARY | 2024-05-28 17:22 | XMS_ITS | Encounter Summary ---
Author Organization [facility] Address [address] [place] [address] Care Team Providers Care Maintenance Technician 3Rd Shift Name Role Phone lEoina Brewer BULLARD OPERATOR Primary Care Provider +[phone] Reason for Visit * (Routine/Next Available) - Receiving Office to Obtain Authorization Specialty Diagnoses / Procedures Referred By Kayla t Referred To Contact Procedures CT OUTSIDE IMAGES CHEST Unknown, Provider, MD Referral ID Status Reason Start Date Expiration Date Visits Requested Visits Authorized [id number] Receiving Office to Obtain Authorization 09/26/2021 1 1 Encounter Details Date Type Department Care Team (Latest Contact Info) Description 09/23/2021 - 09/23/2021 23:59 EDT Hospital Encounter [facility] Secondary Reads [place] Discharge Disposition: Home or [...] on filedocumented in this encounter Care Teams Maintenance Technician 3Rd Shift Relationship Specialty Start Date End Date Eloina Brewer NP [address] [place] [address] [address] [place] [phone] PCP - General 10/16/20 documented as of this encounter
--- OUTSIDE RECORDS SUMMARY | 2024-05-28 17:22 | XMS_ITS | Encounter Summary ---
Author Organization [facility] Address [address] [place] [address] Care Team Providers Care Polymer Scientist Name Role Phone Eloina Brewer WORKDAY CONSULTANT Primary Care Provider +[phone] Encounter Details Date Type Department Care Team (Late st Contact Info) Description 09/22/2021 Lab Requisition [facility] Pathology & Laboratory Medicine - [address] [address] Outr Resulting Lab, Provider Social History Tobacco [...] Priority Date/Time Associated Diagnosis Comments JJD-19 TEST [facility] PCR Today 09/22/2021 20:05 EDT COVID-19 TESTING Routine 09/22/2021 20:0 5 EDT documented in this encounter Results * COVID-19 TEST [facility] PCR (09/22/2021 20:05 EDT) Swab 09/22/2021 20:0 5 EDT 09/23/2021 16:27 EDT us Provider Outr Resulting Lab MICROBIOLOGY - GENER AL ORDERABLES Final Result [facility] [address] [place] [id number] * COVID-19 TESTING (09/22/2021 20:05 EDT) COVID-19 rt-PCR Result Negative Negative 09/24/2021 12:15 EDT [facility] Comment: This test has not [...] performed using the elizabeth SARS-CoV-2 assay ([employer] on the Elizabeth 6800 System Performing Lab Elizabeth 6800 [facility] 09/24/2021 12:15 EDT [facility] Swab 09/22/2021 20:0 5 EDT 09/23/2021 16:27 EDT us Provider Outr Resulting Lab MICROBIOLOGY - GENER AL ORDERABLES Final Result [facility] [address] [place] [address] documented in this encounter Visit Diagnoses Not on filedocumented in this encounter Care Teams Polymer Scientist Relationship Specialty Start Date End Date Eloina Brewer NP [address] [facility] [address] [place] [phone] PCP - General 10/16/20 documented as of this encounter
--- OUTSIDE RECORDS SUMMARY | 2024-05-28 17:22 | XMS_ITS | Encounter Summary ---
Author Organization [facility] Address [address] [place] [address] Care Team Providers Care Stock Preparation Operator Name Role Phone Eloina Brewer AREA DEVELOPMENT CONSULTANT Primary Care Provider [phone] Reason for Referral * Radiology Services (Routine/Next Available) - Authorization Not Required Specialty Diagnoses / Procedures Referred By Contac t Referred To Contact Diagnoses Solitary pulmonary nodule Procedures CT CHEST WO CONTRAST Alexus Mcintosh MD Phone: tel: fax: [facility] Referral ID Status Reason Start Date Expiration Date Visits Requested Visits Authorized [id number] Authorization Not Required 11/08/2021 1 1 Reason for Visit * Radiology Services (Routine/Next Available) - Authorization Not Required Specialty Diagnoses / Procedures Referred By Kayla goodman Referred To Contact Diagnoses Solitary pulmonary nodule Procedures CT CHEST WO CONTRAST Alexus Mcintosh MD Phone: tel: fax: [facility] Referral ID Status Reason Start Date Expiration Date Visits Requested Visits Authorized [id number] Authorization Not Required 11/08/2021 1 1 Encounter Details Date Type Department Care Team (Latest Contact Info) Description 12/12/2021 11:59 EDT - 12/12/2021 23:59 EDT Hospital Encounter Mitzy [facility] [address] [place], [place] [address] Solitary pulmonary nodule Discharge Disposition: Home or [...] nodule documented in this encounter Care Teams Stock Preparation Operator Relationship Specialty Start Date End Date Eloina Brewer NP [address] [place], [place] [address] [address] [place] [phone] PCP - General 10/16/20 documented as of this encounter
--- OUTSIDE RECORDS SUMMARY | 2024-05-28 17:22 | XMS_ITS | Clinical Summary ---
Author Organization [facility] Address [address] [place] [address] Care Team Providers Care Final Assembly Worker Name Role Phone Eloina Brewer PETROLEUM BLENDING PLANT OPERATOR Primary Care Provider Allergies Active Allergy [...] (Adult) (#1) 2024 Insurance MEDICARE [facility] [place] [facility] AND [address] [id number] ([place]) [address] [address] ([place]) [address] [id number] Advance Directives For more information, please contact: [phone] Documents on File Type Date Recorded Patient Pathology Technician Expl anation Advance Directive 09/15/2020 13:33 Living Will-Signed 2000-03-03 * Full Code (Latest Code Status on File) Date Activated Date Inactivated Comments 12/18/2021 6:00 12/18/2021 20:03 Question Answer Comments When the patient has NO PULSE: Full Code / CPR Who Made the Decision? Default/Not Discussed Care Teams Final Assembly Worker Relationship Specialty Start Date End Date Eloina Brewer NP [address] [place] [phone] [facility] - General 10/16/20
--- OUTSIDE RECORDS SUMMARY | 2024-05-28 17:22 | XMS_ITS | Encounter Summary ---
Author Organization [facility] Address [address] [place] [address] Care Team Providers Care Gas Cutter Name Role Phone Eloina Brewer SENIOR QUALITY CONTROL TECHNICIAN Primary Care Provider +1 [phone] Encounter Details Date Type Department Care Team (Late st Contact Info) Description 01/17/2022 Documentation Visit [facility] Hematology & Oncology - [address] [phone] Ruben Pradhan, RN Social History Tobacco Use [...] on filedocumented in this encounter Care Teams Gas Cutter Relationship Specialty Start Date End Date Eloina Brewer NP [address] [place] [address] [address] [place] [phone] PCP - General 10/16/20 documented as of this encounter
--- OUTSIDE RECORDS SUMMARY | 2024-05-28 17:22 | XMS_ITS | Encounter Summary ---
Author Organization [facility] Address [address] [place] [address] Care Team Providers Care Microstrategy Architect Developer Name Role Phone Patricia Ulloa MD Primary Care Provider Encounter Details Date Type Department Care Team (Late st Contact Info) Description 09/19/2020 Orders Only [facility] Adult Primary Care - [address] [phone] Patricia Ulloa MD [address] [place] [address] Social History Tobacco Use Types [...] documented as of this encounter Care Teams Microstrategy Architect Developer Relationship Specialty Start Date End Date Patricia Ulloa MD PCP - General Geriatric Medicine 08/31/20 10/15/20 documented as of this encounter
--- OUTSIDE RECORDS SUMMARY | 2024-05-28 17:22 | XMS_ITS | Encounter Summary ---
Author Organization [facility] Address [address] [place] [address] Care Team Providers Care Painter Helper Sign Name Role Phone Patricia Ulloa MD Primary Care Provider Encounter Details Date Type Department Care Team (Latest Contact Info) Description 10/10/2020 Documentation Visit [facility] Adult Primary Care - [address] [phone] Patricia Ulloa MD [address] [place] [address] Hypertension, unspecified type; Amnesia; Tremor; [...] Abby Cordova - 10/10/2020 1153 EDT AGENCY: [facility] POC CERTIFICATION PERIOD: 09.06.20-11.04.20 DATE [...] hypothyroidism documented in this encounter Care Teams Painter Helper Sign Relationship Specialty Start Date End Date Patricia Ulloa MD PCP - General Geriatric Medicine 08/31/20 10/15/20 documented as of this encounter
--- OUTSIDE RECORDS SUMMARY | 2024-05-28 17:22 | XMS_ITS | Encounter Summary ---
Author Organization [facility] Address [address] [place] [address] Care Team Providers Care Curtain Stretcher Name Role Phone Eloina Brewer LAUNCHING PAD MECHANIC Primary Care Provider +[phone] Encounter Details Date Type Department Care Team [...] on filedocumented in this encounter Care Teams Curtain Stretcher Relationship Specialty Start Date End Date Eloina Brewer NP [address] [facility] [address] [place] [phone] PCP - General 10/16/20 documented as of this encounter
--- OUTSIDE RECORDS SUMMARY | 2024-05-28 17:22 | XMS_ITS | Encounter Summary ---
Author Organization [facility] Address [address] [place] [address] Care Team Providers Care Director Of Aviation Name Role Phone Eloina Brewer LEAD NETWORK ENGINEER Primary Care Provider +1 [phone] Encounter Details Date Type Department Care Team (Late st Contact Info) Description 09/26/2021 Orders Only [facility] Radiology - Main [place] [address] [place], [place] [phone] Lupis Mcclendon MD [address] [place] [address] Social History Tobacco Use Types [...] in this encounter Care Teams Director Of Aviation Relationship Specialty Start Date End Date Eloina Brewer NP [address] [place] [address] PCP - General 10/16/20 documented as of this encounter
--- OUTSIDE RECORDS SUMMARY | 2024-05-28 17:22 | XMS_ITS | Encounter Summary ---
Author Organization [facility] Address [address] [place] [address] Care Team Providers Care Automotive Production Worker Name Role Phone Patricia Ulloa MD Primary Care Provider Reason for Visit * Reason Onset Date Comments Home Health 09/06/2020 Encounter Details Date Type Department Care Team (Late st Contact Info) Description 09/06/2020 Telephone [facility] Adult Primary Care - [address] [phone] Patricia Ulloa MD [address] [place] [phone] Home Health Social History Tobacco Use [...] on filedocumented in this encounter Care Teams Automotive Production Worker Relationship Specialty Start Date End Date Patricia Ulloa MD PCP - General Geriatric Medicine 08/31/20 10/15/20 documented as of this encounter
--- OUTSIDE RECORDS SUMMARY | 2024-05-28 17:22 | XMS_ITS | Encounter Summary ---
Author Organization [facility] Address [address] [place] [address] Care Team Providers Care Victim Witness Administrator Name Role Phone Patricia Redmond MD Primary Care Provider Reason for Visit * Reason Onset Date Comments Hypertension 09/21/2020 Encounter Details Date Type Department Care Team (Late st Contact Info) Description 09/21/2020 Telephone [facility] Adult Primary Care - [address] [phone] Patricia Redmond MD [address] [place] [phone] Hypertension Social History Tobacco Use Types [...] was placed at that time to the [place] office to report readings. Next scheduled visit 09/28. Sincerely, Belinda Lai banquet set up person [phone] Belinda Lai, RN Kezia Naranjo RN ?The only other recording is on 09/14 140/70 * Telephone Encounter - Kezia Naranjo RN - 09/26/2020 1129 EDT 09/26 @ 11:29 affiliate message sent to Home health [facility] hosp[facility] requesting recent blood pressure readings. * [...] on filedocumented in this encounter Care Teams Victim Witness Administrator Relationship Specialty Start Date End Date Patricia Redmond MD PCP - General Geriatric Medicine 08/31/20 10/15/20 documented as of this encounter
--- OUTSIDE RECORDS SUMMARY | 2024-05-28 17:23 | XMS_ITS | Encounter Summary ---
Author Organization [facility] Address [address] [place] [address] Care Team Providers Care Animal Care Technician Name Role Phone Unavailable Primary Care Provider Unavailabl e Encounter Details Date Type Department Care Team (Late st Contact Info) Description 07/02/2007 Office Visit [facility] - [facility] [address] [place] [address] Roderick Graves MD Social History Tobacco Use [...] pain. No headache or blackouts. 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 No history [...] (Daughter states pt seen x 3 in [facility] ED in past week for tremors and HTN, EKG nl x2. Told should see neurologist. Referred to ED by Dr Kumar (family friend not LMD) for neuroconsult in ED.). Pain level now: 0/10. (tremors worse at night, generalized weakness, lt neck/shoulder pain). PAST HX: (Guillian Irving 1966, pancreatis/gallbladder attack 1991, seizure, septicemia, essential [...] to the patient. Reviewed referral to an brew house supervisor for followup. Patient verbalized understanding. Written instructions provided in Mauritian. The patient was discharged home and accompanied [...]
--- OUTSIDE RECORDS SUMMARY | 2024-05-28 17:23 | XMS_ITS | Encounter Summary ---
Author Organization [facility] Address [address] [place] [address] Care Team Providers Care Hvac Residential Service Technician Name Role Phone Unavailable Primary Care Provider Unavailabl e Reason for Visit * Reason Onset Date Comments Medical Records 08/02/2020 Encounter Details Date Type Department Care Team (Late st Contact Info) Description 08/02/2020 Telephone [facility] Adult Primary Care - [address] [address] Patricia Ulloa MD [address] [place] [address] Medical Records Social History Tobacco [...]
--- OUTSIDE RECORDS SUMMARY | 2024-05-28 17:23 | XMS_ITS | Encounter Summary ---
Author Organization [facility] Address [address] [place] [address] Care Team Providers Care Customs Compliance Specialist Name Role Phone Unavailable Primary Care Provider Unavailabl e Encounter Details Date Type Department Care Team (Latest Contact Info) Description 08/01/2020 10:00 EDT Phlebotomy Only [facility] Services [facility] [address] [place] [address] Health examination in population survey [...] 3.5 - 5.0 mEq/L 08/01/2020 12:35 EDT [facility] Blood VENOUS BLOOD / Unknown Venipuncture / Unknown 08/01/2020 10:30 EDT 08/01/2020 10:31 EDT us Eloina Brewer NP CHEMISTRY & BLOOD GAS ORDER GORDON Final Result [facility] [address] [place] [address] * (ABNORMAL) HEMOGLOBIN A1C (08/01/2020 10:30 EDT) Hemoglobin A1c 5.7(H) <5.7 % 08/01/2020 15:10 EDT [facility] Comment: Glycemic Status [...] Est Avg Glucose 117 mg/dL 15:10 EDT [facility] Comment:The eAG represents t he A1c result expressed as average glucose in mg/dL. Blood VENOUS BLOOD / Unknown Venipuncture / Unknown 08/01/2020 10:30 EDT 08/01/2020 10:31 EDT us Eloina L Imperio DRY PRESS OPERATOR HELPER CHEMISTRY & BLOOD GAS ORDER GORDON Final Result Performing Organization Address [facility] Co de Phone Number [facility] [address] [place] [address] * (ABNORMAL) CREATININE (08/01/2020 10:30 EDT) Creatinine 1.09(H) 0.52 - 1.04 mg/dL 08/01/2020 12:35 EDT [facility] eGFR 47(L) >60 mL/min/1.7 3m2 08/01/2020 12:35 EDT [facility] Comment:eGFR calculated gia moreno CKD-EPI equation for non- Americans. Multiply eGFR by 1.16 for patients. Blood VENOUS BLOOD / Unknown Venipuncture / Unknown 08/01/2020 10:30 EDT 08/01/2020 10:31 EDT us Eloina L Imperio DRY PRESS OPERATOR HELPER CHEMISTRY & BLOOD GAS ORDER GORDON Final Result Performing Organization Address [facility] Co de Phone Number [facility] [address] [place] [address] * (ABNORMAL) TSH (08/01/2020 10:30 EDT) TSH 6.66(H) 0.47 - 4.68 uIU/mL 08/01/2020 13:08 EDT [facility] Blood VENOUS BLOOD / Unknown Venipuncture / Unknown 08/01/2020 10:30 EDT 08/01/2020 10:31 EDT Narrative [facility] - 08/01/2020 13:08 EDT The results of this assay can be falsely lowered due to the consumption of Biotin. us Eloina Brewer NP CHEMISTRY & BLOOD GAS ORDER GORDON Final Result [facility] [address] [place] [phone] documented in this encounter Visit Diagnoses Diagnosis Health examination in population survey- Primary documented in this encounter
--- OUTSIDE RECORDS SUMMARY | 2024-05-28 17:23 | XMS_ITS | Encounter Summary ---
Author Organization [facility] Address [address] [place] [address] Care Team Providers Care Heavy Equipment Engine Mechanic Name Role Phone Camila Moreland MD Primary Care Provider +[phone] Reason for Visit * Reason Onset Date Comments Patient Outreach 05/21/2018 Encounter Details Date Type Department Care Team (Late st Contact Info) Description 05/21/2018 Telephone [facility] Ophthalmology - [address] [address] Travis Florez MD [address] [place] [address], [address] [place] [address] Patient Outreach Social History Tobacco [...] up with . Will continue care in [facility] documented in this encounter Plan of Treatment Not on file documented as of this encounter Visit Diagnoses Not on filedocumented in this encounter Care Teams Heavy Equipment Engine Mechanic Relationship Specialty Start Date End Date Camila Moreland MD [address] [place] [address] PCP - General 03/10/15 07/02/20 documented as of this encounter
--- OUTSIDE RECORDS SUMMARY | 2024-05-28 17:23 | XMS_ITS | Encounter Summary ---
Author Organization [facility] Address [address] [place] [address] Care Team Providers Care Ekg Tech Name Role Phone Unavailable Primary Care Provider [...]
--- OUTSIDE RECORDS SUMMARY | 2024-05-28 17:23 | XMS_ITS | Encounter Summary ---
Author Organization [facility] Address [address] [place] [address] Care Team Providers Care Civil Engineering Project Designer Name Role Phone Unavailable Primary Care Provider Unavailabl e Encounter Details Date Type Department Care Team (Latest Contact Info) Description 07/02/2007 11:12 EST - 07/02/2007 11:59 EST Hospital Encounter [facility] - [address] [address] Emergency, Default, MD Discharge Disposition: Home or [...] ORDERA BLES Final Result Performing Organization Address [facility] Phone Number [facility] [address] [place] [address] * TROPONIN I (07/02/2007 13:00 EST) [facility] Troponin I pre 2011 <0.05 ng/ml [facility] Comment: Reference Range: Normal: ??Less than 0.05 Indeterminate: ??0.05-0.80 Positive: ??Greater than 0.80 07/02/2007 13:0 0 EST 07/02/2007 13:31 EST Default Emergency MD CHEMISTRY & BLOOD GAS ORDER GORDON Final Result Performing Organization Address [facility] Phone Number [facility] [address] [place] [address] * (ABNORMAL) GLUCOSE, SERUM (07/02/2007 13:00 EST) [facility] Glucose, Serum 116(H) 70 - 100 mg/dl [facility] 07/02/2007 13:0 0 EST 07/02/2007 13:31 EST Default Emergency CHEMISTRY & BLOOD GAS ORDER GORDON Final Result Performing Organization Address [facility] Phone Number [facility] [address] [place] [address] * ELECTROLYTES (07/02/2007 13:00 EST) [facility] Sodium 145 136 - 145 mEq/L [facility] Potassium 4.4 3.5 - 5.0 mEq/L [facility] Chloride 103 96 - 110 mEq/L [facility] CO2 28 24 - 32 mEq/L [facility] 07/02/2007 13:0 0 EST 07/02/2007 13:31 EST Default Emergency CHEMISTRY & BLOOD GAS ORDER GORDON Final Result [facility] [address] [place] [address] * CREATININE (07/02/2007 13:00 EST) Creatinine 0.70 0.7 - 1.5 mg/dl [facility] GFR, Calculated >60 ml/min/1.7 3m2 [facility] 07/02/2007 13:0 0 EST 07/02/2007 13:31 EST us Default Emergency MD CHEMISTRY & BLOOD GAS ORDER GORDON Final Result Performing Organization Address City/[facility] Co de Phone Number [facility] [address] [place] [address] * BUN (07/02/2007 13:00 EST) BUN 25 10 - 26 mg/dl [facility] 07/02/2007 13:0 0 EST 07/02/2007 13:31 EST us Default Emergency MD CHEMISTRY & BLOOD GAS ORDER GORDON Final Result Performing Organization Address City/[facility] Co de Phone Number [facility] [address] [place] [address] documented in this encounter Visit Diagnoses Not on filedocumented in this encounter
--- OUTSIDE RECORDS SUMMARY | 2024-05-28 17:23 | XMS_ITS | Encounter Summary ---
Author Organization Health system Address [address] [place] [address] Care Team Providers Care Slagger Name Role Phone Camila Moreland MD Primary Care Provider +1 [phone] Reason for Visit * Reason Comments Altered [...] 18:03 EST - 04/25/2019 22:18 EST Emergency [facility] Emergency Department - [address] [phone] Kenny Birmingham MD [address] [place] [address], [address] [place] [address] Non-intractable vomiting with nausea, unspecified [...] Code Departure Means Destination Home or Self Residential documented in this encounter ED Notes * [...] exam for emergent medical conditions at [facility] on 04/25/2019 Scribe attestation: This documentation [...] took the patient out to see the [employer], the patient normally becomes car sick and [...] saw something green come out of the Ning tree and move up in the air. [...] deficits. Differential is broad and would include MATERIAL CONTROL CLERK process such as mass/stroke versus medication side [...] ER. I recommended [facility], return for recurrence, worsening or any [...] Abnormality Status --------- ------ POCT URINE DIPSTICK, CLINITEK[[id number]] POCT CSN BARCODE URINE DIP...[[id number]] Please view results for these tests on [...] 05/04/2019 14:0 7 EST us Scan 2 Tie Maker PROCEDURE/MINOR SURGICAL OR DERABLES Final Result * (ABNORMAL) COMPLETE BLOOD COUNT AND DIFFERENTIAL (04/25/2019 19:26 EST) WBC 8.81 4.00 - 12.40 K/cmm 04/25/2019 19:42 [facility] RBC 5.03 3.86 - 5.04 M/cmm 04/25/2019 19:42 [facility] Hemoglobin 14.7 11.6 - 15.2 gm/dL 04/25/2019 19:42 [facility] HCT 46.3(H) 34.9 - 44.4 % 04/25/2019 19:42 [facility] MCV 92 81 - 98 fl 04/25/2019 19:42 [facility] MCH 29.2 26.7 - 33.3 pg 04/25/2019 19:42 [facility] MCHC 31.7(L) 32.1 - 35.9 gm/dL 04/25/2019 19:42 [facility] RDW-CV 14.6 <14.7 % 04/25/2019 19:42 [facility] RDW-SD 49.3 <50.4 fl 04/25/2019 19:42 [facility] PLT 182 141 - 377 K/cmm 04/25/2019 19:42 [facility] MPV 11.6 9.5 - 12.7 fl 04/25/2019 19:42 [facility] % Neutrophils 69.5 % 04/25/2019 19:42 [facility] % Lymphocytes 19.5 % 04/25/2019 19:42 [facility] % Monocytes 7.5 % 04/25/2019 19:42 [facility] % Eosinophils 2.4 % 04/25/2019 19:42 [facility] % Basophils 0.6 % 04/25/2019 19:42 [facility] % Immature Grans 0.5 % 04/25/20 19:42 [facility] Absolute Neutrophils 6.13 2.20 - 8.85 K/cmm 04/25/2019 19:42 [facility] Absolute Lymphocytes 1.72 1.09 - 3.30 K/cmm 04/25/2019 19:42 [facility] Absolute Monocytes 0.66 0.10 - 0.80 K/cmm 04/25/2019 19:42 [facility] Absolute Eosinophils 0.21 0.03 - 0.61 K/cmm 04/25/2019 19:42 [facility] ABS Basophils 0.05 0.01 - 0.11 K/cmm 04/25/2019 19:42 [facility] Absolute Immature Grans 0.04 0.00 - 0.06 K/cmm 04/25/2019 19:42 [facility] Type of Differential: Auto 04/25/2019 19:42 [facility] Blood VENOUS BLOOD / Unknown Venipuncture / Unknown 04/25/2019 19:26 EST 04/25/2019 19:32 EST us Kenny Birmingham MD PACKAGES & DNA PROBE ORDERABLE S Final Result [facility] [address] [place] [address] * (ABNORMAL) COMPREHENSIVE METABOLIC PANEL (CMP) (04/25/2019 19:25 EST) Sodium 140 136 - 145 mEq/L 04/25/2019 19:49 [facility] Potassium 4.5 3.5 - 5.0 mEq/L 04/25/2019 19:49 [facility] Chloride 104 96 - 110 mEq/L 04/25/2019 19:49 [facility] CO2 Total 27 22 - 32 mEq/L 04/25/2019 19:49 [facility] Glucose 115(H) 70 - 100 mg/dL 04/25/2019 19:49 [facility] BUN 32(H) 10 - 26 mg/dL 04/25/2019 19:49 [facility] Creatinine 0.81 0.52 - 1.04 mg/dL 04/25/2019 19:49 [facility] eGFR 68 >60 mL/min/1.7 3m2 04/25/2019 19:49 [facility] Comment:eGFR calculated gia moreno CKD-EPI equation for non- Americans. Multiply eGFR by 1.16 for patients. Total Protein 7.4 6.3 - 8.2 g/dL 04/25/2019 19:49 [facility] Albumin 4.3 3.4 - 4.9 g/dL 04/25/2019 19:49 [facility] Alkaline Phosphatase 139(H) 38 - 126 U/L 04/25/2019 19:49 [facility] AST 23 15 - 46 U/L 04/25/2019 19:49 [facility] ALT 14 <35 U/L 04/25/2019 19:49 [facility] Bilirubin, Total <0.5 <1.4 mg/dL 04/25/20 19:49 [facility] Calcium 9.7 8.5 - 10.5 mg/dL 04/25/2019 19:49 [facility] Calculated Calcium 9.5 8.5 - 10.5 mg/dL 04/25/2019 19:49 [facility] Blood VENOUS BLOOD / Unknown Venipuncture / Unknown 04/25/2019 19:25 EST 04/25/2019 19:32 EST us Kenny Birmingham MD CHEMISTRY & BLOOD GAS ORDERABL ES Final Result Performing Organization Address City/State/[facility] Co de Phone Number [facility] [address] [place] [address] * CT HEAD WO CONTRAST (04/25/2019 18:47 [...] 18:18 EST) 04/25/2019 18:1 8 EST Narrative [facility] EKG - 05/04/2019 14:02 EST ?[facility] Emergency ? Test Date: ?2019-04-25 Pat Name: ? JOSELO THORNTON ? Department: ?? ED ? Room: ? Gender: ? Female ? Marine Operations Coordinator: ?? [id number] : ?1935 ? Requested By: KELLI Styles Order Number: [id number] ? Erica MD: ?? PRISCILLA VICENTE MD ? Measurements Intervals ?[place]mond ? Rate: ? 48 ? P: ?34 AZ: ? 184 ?QRS: ?32 QRSD: ? 90 ? T: ?48 QT: ? 455 ? QTc: ?407 ? Interpretive Statements SINUS BRADYCARDIA No previous ECG available for comparison I reviewed the tracing and have either agreed or edited the findings in this report. Electronically Signed On 05-04-2019 14:02:01 EST by PRISCILLA VICENTE MD. Procedure Note Priscilla Vicente MD - 05/04/2019 [facility] Emergency Test Date: 2019-04-25 Pat Name: JOSELO THORNTON Department: ED Room: Gender: Female Marine Operations Coordinator: [id number] : 1935 Requested By: KELLI Styles Order Number: [id number] Reading MD: PRISCILLA VICENTE MD Measurements Intervals Almond Rate: 48 P: 34 AZ: 184 QRS: 32 QRSD: 90 T: 48 QT: 455 QTc: 407 Interpretive Statements SINUS BRADYCARDIA No previous ECG available for comparison I reviewed the tracing and have either agreed or edited the findings inthis report. Electronically Signed On 05-04-2019 14:02:01 EST by LEONA KIDD. us Salome Hummel MD MPH CARDIAC ECG ORDERABLES Final Result [facility] EKG documented in this encounter Visit [...] 04/25/2019 documented in this encounter Care Teams Slagger Relationship Specialty Start Date End Date Camila Moreland MD [address] [place] [address] PCP - General 03/10/15 07/02/20 documented as of this encounter
--- OUTSIDE RECORDS SUMMARY | 2024-05-28 17:23 | XMS_ITS | Encounter Summary ---
Author Organization [facility] Address [address] [place] [address] Care Team Providers Care Mechanical Designer Name Role Phone Unavailable Primary Care Provider Unavailabl e Encounter Details Date Type Department Care Team (Late st Contact Info) Description 08/03/2020 Abstract [facility] Adult Primary Care - [address] [place] [address] Patricia Ulloa MD [address] [place] [phone] Social History Tobacco Use Types Packs/Day [...]
--- OUTSIDE RECORDS SUMMARY | 2024-05-28 17:23 | XMS_ITS | Encounter Summary ---
Author Organization [facility] Address [address] [place] [address] Care Team Providers Care Headliner Installer Name Role Phone Unavailable Primary Care Provider Unavailabl e Reason for Visit * Reason Onset Date Comments Paperwork request 08/03/2020 NPV Packet Encounter Details Date Type Department Care Team (Late st Contact Info) Description 08/03/2020 Telephone [facility] Adult Primary Care - [address] [address] Patricia Ulloa MD [address] [place] [phone] Paperwork request (NPV Packet) Social [...]
--- OUTSIDE RECORDS SUMMARY | 2024-05-28 17:23 | XMS_ITS | Encounter Summary ---
Author Organization [facility] Address [address] [place] [address] Care Team Providers Care Alliance Director Name Role Phone Eloina Brewer NP Primary Care Provider [phone] Patricia Ulloa MD Primary Care Provider Reason for Visit * Reason Onset Date Comments Medical Records 08/30/2020 Encounter Details Date Type Department Care Team (Late st Contact Info) Description 08/30/2020 Telephone [facility] Adult Primary Care - [address] [address] Patricia Ulloa MD [address] [place] [phone] Medical Records Social History Tobacco Use [...] 1310 EDT Outgoing call to Eloina Brewer DIRECTOR OF NURSES REGISTRY, office. [facility] Medical record release signed and faxed apprx one month ago. We have not yet received anything. documented in this encounter Plan of Treatment Not on file documented as of this encounter Visit Diagnoses Not on filedocumented in this encounter Care Teams Alliance Director Relationship Specialty Start Date End Date Eloina Brewer NP [address] [place] [phone] PCP - General 10/16/20 Patricia Ulloa MD [address] [place] [phone] PCP - General Geriatric Medicine 08/31/20 10/15/20 documented as of this encounter
--- OUTSIDE RECORDS SUMMARY | 2024-05-28 17:23 | XMS_ITS | Encounter Summary ---
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 Ref here from Dr. Arellano * Referral (Routine) - Closed Specialty Diagnoses / Procedures Referred By Kayla goodman Referred To Contact Ophthalmology Diagnoses Age-related macular degeneration Bilateral dry eyes Cas Pineda MD Phone: tel: fax: [facility] Ophthalmology - Main [place] [address] [place] [address] Phone: tel: fax: Referral ID Status Reason Start Date Expiration Date Visits Re quested Visits Authorized [id number] Closed 1 1 Encounter Details Date Type Department Care Team (Late st Contact Info) Description 12/03/2017 13:15 EDT Office Visit [facility] Ophthalmology - Main [address] [address] Travis Florez MD [address] [place] [address], [address] [place] [address] Discharge Disposition: Auto Discharge Social [...] Florez MD - 12/03/2017 0000 EDT [facility] OPHTHAL[facility]OLOG[facility] December 03, 2017 Isaiah Quick OD [facility] [address], [address] [place] [address] RE: MEREDITH THORNTON : 1935 Dear Isaiah, [...] - Travis Florez MD ln Dictation ID: [id number] cc: Isaiah Quick OD, [facility] [address], [address], [place] [address] documented in this encounter Plan of Treatment [...] vus superior to nerve 1dd Care Teams Fly Worker Relationship Specialty Start Date End Date Camila Moreland MD [address] [place] [phone] PCP - General 03/10/15 07/02/20 documented as of this encounter
--- OUTSIDE RECORDS SUMMARY | 2024-05-28 17:23 | XMS_ITS | Encounter Summary ---
Author Organization [facility] Address [address] [place] [address] Care Team Providers Care Life Insurance Actuary Name Role Phone Patricia Ulloa MD Primary Care Provider Reason for Visit * Reason Comments New Patient Visit Encounter Details Date Type Department Care Team (Late st Contact Info) Description 08/31/2020 8:15 EDT Office Visit [facility] Adult Primary Care - [address] [address] Patricia Ulloa MD [address] [place] [phone] Fall, sequela (Primary Dx); Hypothyroidism, unspecified [...] Patricia Ulloa MD - 08/31/2020 0815 EDT [facility] Adult Primary Care, Geriatrics - [facility] Subjective: Ms. Meredith Thornton is a 84 [...] the area to live with daughter from [facility]. She is transferring care from [facility]. We do not have records at this time. They have been requested. She also sees a Steamer Blocker, Dr. Granger. She has seen a Neurologist, Cezar White. She is here today with her daughter Gabriel. 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 DENTAL IADL- car removed May 2019, retested Neurologist in July 2019 and she didn't get car back ( memorytesting), Gabriel helps with finances, Gabriel does cooking, cleaning Social History - born in [facility] -Daughter Gabriel in [place], son Diego in [place] - 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 Guillan Van Etten history so has not received many vaccines [...] Endo None 11/30/2020 8:15 Patricia Ulloa MD [facility] Patricia Ulloa MD [facility] General Internal Medicine and [...] 09/19/2020 added in this encounter Care Teams Life Insurance Actuary Relationship Specialty Start Date End Date Patricia Ulloa MD PCP - General Geriatric Medicine 08/31/20 10/15/20 documented as of this encounter
[2024-05-28 18:21] LABS: Abs Immature Grans 0.05 10^3/uL (0.0-0.06); Absolute Basophil Count 0.03 10^3/uL (0.0-0.2); Absolute Eosinophil Count 0.01 10^3/uL (0.0-0.7); Absolute Neutrophil Count 11.08 10^3/uL (1.2-6.7); Basophils % 0.2 %; Eosinophils % 0.1 %; HCT 43.6 % (36.0-46.0); HGB 14.2 g/dL (11.2-15.7); Immature Grans % 0.4 %; Lymphocytes % 6.9 %; MCH 29.6 pg (27.0-33.0); MCHC 32.6 % (32.0-36.0); MCV 91 fL (80-95); MPV 11.4 fL (8.0-11.0); Monocytes % 5.9 %; Neutrophils % 86.5 %; Platelet Count 151 10^3/uL (130-400); RDW 16.9 % (11.7-14.6); RDW-SD 54.9 fL; WBC 12.81 10^3/uL (4.4-10.8)
[2024-05-28 18:24] LABS: Absolute Lymphocyte Count 0.88 10^3/uL (1.2-3.4); Absolute Monocyte Count 0.76 10^3/uL (0.1-0.8)
[2024-05-28 18:59] LABS: ALT 104 U/L (14-59); AST 117 U/L (15-37); Albumin 3.5 g/dL (3.4-5.0); Alkaline Phosphatase 331 U/L (46-116); Anion Gap 17.1 mmol/L (3-11); BUN 37 mg/dL (7-18); Bilirubin, Total 0.73 mg/dL (0.2-1.0); CO2 20.9 mmol/L (21.0-32.0); CREATININE 1.8 mg/dL (0.55-1.02); Calcium 10.2 mg/dL (8.5-10.1); Chloride 104 mmol/L (98-107); Estimated GFR 26.93 (mL/min/1.73m2); Glucose 82 mg/dL (74-106); NT-proBNP 748 pg/mL (<300); Potassium 5.6 mmol/L (3.5-5.1); Sodium 142 mmol/L (136-145); Total Protein 8.6 g/dL (6.4-8.2); Troponin I 13 ng/L (<or=51)
[2024-05-28] MEDS: Lactated Ringers 500 ML IV (20:12)
[2024-05-28] MEDS: ACETAMINOPHEN 1,000 MG/100 ML BAG 400 MG IVPB (20:12)
[2024-05-28 20:15] LABS: Troponin I 14 ng/L (<or=51)
[2024-05-28 20:25] LABS: Bilirubin Negative (Negative); Blood Negative (Negative); Clarity Clear (Clear); Glucose Negative (Negative); Ketones Trace mg/dL (Negative); Leukocyte Esterase Negative (Negative); Nitrite Negative (Negative); Specific Gravity 1.015 (1.005-1.025); Urobilinogen 0.2 mg/dL (Up to 0.2); pH 6.5 (5-8)
[2024-05-28] MEDS: Normal Saline - Diluent 50 ML VIAL IJ (20:35)
[2024-05-28] MEDS: Omnipaque 350 MG/ML 100 ML BTL 75 ML IJ (20:36)
--- NOTE | 2024-05-28 20:48 | DI.CT_ITS ---
Exam(s) CT ABDOMEN PELVIS W EXAM: CT ABDOMEN PELVIS W CLINICAL HISTORY: New transaminitis. TECHNIQUE: Imaging Protocol: Axial computed tomography images with coronal and sagittal reformatted images were created and reviewed CONTRAST MATERIAL: Intravenous: Omnipaque-350 75cc COMPARISON: CT CT CHEST PE CTA from 09/23/[address] BRAIN NECK CTA from 01/14/2022 FINDINGS: VISUALIZED LUNG BASES: The uppermost images of this abdominal study reveal a partially included abnor mal centrally hypodense mass in the left lower lobe measuring approximately 3.5 x 2.5 cm which is tomás picious for either neoplasm or lung abscess. There is no associated pleural effusion. There are mil d increased markings in the opposite-right lung base.. ABDOMEN: There is no ascites. No mesenteric masses nor omental caking. LIVER: There are no focal hepatic lesions evident. No dilated intrahepatic ducts. GALLBLADDER/BILIARY: Gallbladder is not visualized and probably surgically absent. CBD diameter valentina ures 9-10 mm. This is commensurate with patient's advanced age and post cholecystectomy status. The re are no obvious radiopaque calculi seen in the CBD. PANCREAS: No evidence of pancreatic mass nor dilatation of the pancreatic duct. SPLEEN: Spleen is not enlarged. No obvious intrasplenic lesions. Splenic and portal veins are paten t. ADRENALS: There are no significant adrenal masses. KIDNEYS:There is a large benign cyst again noted in the superior pole of the right kidney which measu res 8 by 7 cm, unchanged. Does not require further investigation. A smaller cortical cyst measuring 1.2 cm is seen in the lateral cortex just below this larger cyst. There is a small cyst in the oppo site-left kidney noted which measures 1 cm. All of these benign renal cysts do not require further i maging evaluation. There are no solid renal masses nor calculi nor hydronephrosis nor hydroureter.. ABDOMINAL AORTA: The abdominal aorta is calcified but not dilated. Common iliac arteries are calcifi ed but not dilated. LYMPH NODES:There is no retroperitoneal nor paraaortic adenopathy. ABDOMINAL WALL: No evidence of significant anterior abdominal wall nor inguinal hernia. GI: There is no evidence of bowel obstruction, free air, nor abscess. PELVIS: GI: No evidence of appendicitis.No evidence of sigmoid diverticulitis. LYMPH NODES: There is no intrapelvic nor inguinal adenopathy. REPRODUCTIVE: Uterus appears age-appropriate size. There are no abnormal adnexal masses nor free flu id in the pelvis. URINARY BLADDER: Urinary bladder is collapsed. OSSEOUS: No fractures and no significant osseous lesions. Mild degenerative anterolisthesis L4 upon L5. Mild disc space narrowing L5-S1 level. All other disc spaces in the lumbar spine exhibit normal height. IMPRESSION: 1. The main finding on this abdominal CT scan is in the partially visualized left lung base. At this level there is a concerning centrally hypodense 3.5 x 2.5 cm mass infiltrate suspicious for neoplasm or lung abscess. No associated pleural effusions. Recommend follow-up contrast infused CT scan of the chest. Scratch 2. No acute findings in the abdomen pelvis. RADIATION DOSE DELIVERED: 1,626.15mGy.cm Total DLP DATA REPOSITORY: All CT scans at this facility are submitted to the National Radiology Data Registry (NRDR) Dose Index Registry (DIR) with the [employer] (ACR). RADIATION OPTIMIZATION: All CT scans at this facility use at least one of these dose optimization te chniques: automated exposure control; mA and/or kV adjustment per patient size (includes targeted exa ms where dose is matched to clinical indication); or iterative reconstruction.
--- NOTE | 2024-05-28 20:58 | DI.RAD_ITS ---
Exam(s) XR HEEL LT OS CALCIS EXAM: XR HEEL LT OS CALCIS CLINICAL HISTORY: [place], eval bony changes. TECHNIQUE: 2D digital imaging was performed. COMPARISON: No exams were available for comparison FINDINGS: Two dedicated views of the calcaneus-lateral and Collin axial views. No evidence of calcaneus fracture. There is focal skin abnormality over the posterior calcaneus. Po ssible ulcer. There is no evidence of osteomyelitis. Enthesophyte at the level the posterior calcan eus is noted. There is also a small inferior calcaneal spur. There is no calcification in the plant ar fascia appear No evidence of osteomyelitis. IMPRESSION: Soft tissue findings as above. No acute osseous findings in the calcaneus. DATA REPOSITORY: RADIATION DOSE DELIVERED:
[2024-05-28] MEDS: MORPHine 4 MG/ML SYR 2 MG IVP (21:08)
--- NOTE | 2024-05-28 21:23 | DI.VRAD_ITS ---
PROCEDURE INFORMATION: Exam: CT Abdomen And Pelvis With Contrast Exam date and time: 05/28/2024 8:37 PM Age: 88 years old Clinical indication: Other: New transaminitis TECHNIQUE: Imaging protocol: Computed tomography of the abdomen and pelvis with contrast. Radiation optimization: All CT scans at this facility use at least one of these dose optimization techniques: automated exposure control; mA and/or kV adjustment per patient size (includes targeted exams where dose is matched to clinical indication); or iterative reconstruction. Contrast material: [id number]; Contrast volume: 75 ml; Contrast route: INTRAVENOUS (IV); COMPARISON: CT CHEST PE CTA 09/23/2021 9:16 AM FINDINGS: Lungs: Linear bibasilar opacities most consistent with subsegmental atelectasis. Pleural spaces: 3.0 x 3.9 cm spiculated left pleural-based mass like opacification with central low attenuating area, concerning for neoplasm. Liver: The liver is unremarkable. Gallbladder and biliary ducts: There is a mild, expected degree of intrahepatic and common bile duct dilation. Pancreas: The pancreas is unremarkable. Spleen: No splenomegaly. No lesions. Adrenal glands: The adrenal glands are unremarkable. Kidneys and ureters: Stable renal cysts. Stomach and bowel: Colonic diverticulosis without evidence of diverticulitis. Moderate stool throughout the colon and rectum. Appendix: Normal appendix. Intraperitoneal space: Unremarkable. No free air. No significant fluid collection. Vasculature: There is severe diffuse atherosclerotic disease of the abdominal aorta. Severe narrowing of the ostium of the celiac artery without complete occlusion. Lymph nodes: No mesentery adenopathy. No edema. Urinary bladder: No focal wall thickening of the urinary bladder. Reproductive: Unremarkable as visualized. Bones/joints: Grade 1 anterolisthesis at L4/L5. L5/S1 disc space narrowing with posterior disc bulge. Soft tissues: Soft tissues are unremarkable as visualized. IMPRESSION: 3.0 x 3.9 cm spiculated left pleural-based mass like opacification with central low attenuating area, concerning for neoplasm. No acute abdominopelvic process. Dictated and Authenticated by: Lesli Khan MD. Ordering:JOE Medina MD
--- NOTE | 2024-05-28 21:24 | DI.VRAD_ITS ---
PROCEDURE INFORMATION: Exam: XR Left Calcaneus Exam date and time: 05/28/2024 8:55 PM Age: 88 years old Clinical indication: Other: [place], eval bony changes TECHNIQUE: Imaging protocol: Radiologic exam of the left calcaneus. Views: 2 or more views. COMPARISON: No relevant prior studies available. FINDINGS: Bones/joints: No acute fracture or dislocation. Small calcaneal spurs. Soft tissues: Normal. IMPRESSION: No acute findings. Dictated and Authenticated by: Lesli Khan MD. Ordering:JOE Medina MD
--- NOTE | 2024-05-28 22:30 | W.PM.HP.N ---
Date of service: 05/28/24 Time of Service: 22:31 Assessment and Plan Assessment and plan (1) Adult failure to thrive: Status: Acute Assessment and plan: Failure to thrive in setting of dementia. At present I do not see any specific factor that may have precipitated the recent decline. It is possible there may be something brewing but not as yet evident or this may be more the natural progression of the underlying dementia. Family expresses a wish that we not pursue any aggressive work up or interventions but request we hydrate until situation clarifies. Will give gentle IVF overnight, consult speech, and consult podiatry re heel lesion. Will also ask Palliative Care to weigh in. Patient remains DNR History of Present Illness History of Present Illness Chief Complaint: failure to thrive Narrative: 88 year old female with dementia, resident of [facility]. Seen here yesterday with several days of poor PO intake, work up unrevealing and patient returned to [facility]. Returns tonight with similar complaints and also vague discomfort. Work up in ER of note for mild leukocytosis (12), K 5.6 w/o EKG changes; mild transaminitis (AST 117, ALT 104), BUN 37 Creat 1.8. Urine unrevealing. CT abdomen and pelvis shows no acute abnormalities, and lower cuts of chest show known LLL mass (presumed malignancy for which patient and family wish no work up). Family declines repeat head CT (negative yesterday). Patient given APAP, 500cc IVF and 2 mg MS. Patient unable to provide any history, daughter says she seems somewhat better but not to baseline. Patient unable to take significant PO and I was asked to evaluate for admission. Review of Systems Narrative: per HPI PFSH All Active Problems Adult failure to thrive (Acute) Encephalopathy (Acute) Acute dehydration (Acute) Hypertensive urgency (Acute) care home resident (Acute) DNR no code (do not resuscitate) (Acute) Dementia with behavioral disturbance (Acute) Chronic heart failure with preserved ejection fraction (Chronic) Macular degeneration (Acute) Essential tremor (Acute) familial Gait abnormality (Acute) uses a walker when out, balance and shuffling steps Prediabetes (Chronic) 03/26/21- A1c 5.9 [facility] Hypertension (Chronic) Anxiety (Chronic) CKD (chronic kidney disease) stage 3, GFR 30-59 ml/min (Chronic) Hypothyroid (Chronic) 03/26/21- TSH 2.95 [facility]0 WNL Memory changes (Acute) Dyspnea (Acute) Left lower lobe pulmonary nodule (Acute) PET 10/2021: highly metabolically active left lower mass, organizing pneumonia vs. 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 states she is unaware of this. Acute infective polyneuritis (~04/03/1966) Pneumonia (~07/20/18) Cerebrovascular accident 06/12 CT @ [facility]: SMALL LACUNAR INFARCTS. Incidental findings. Pt. states she is unaware of this dx. Dislocation of shoulder, anterior, left, closed (04/10/14) Closed displaced fracture of greater tuberosity of left humerus (04/10/14) Closed fracture of head of left humerus (04/10/14) Surgical History Posterior subcapsular age-related cataract, right eye Status post extracapsular cataract extraction of left eye Fracture, Closed Treatment (04/10/14) LEFT SHOULDER FX AND DISLOCATED Cholecystectomy (~1991) Family History Mother , age 56 Cancer Father , age 76 Heart disease Sister No problems noted. Son No problems noted. Daughter No problems noted. Maternal Grandfather , age 78 No problems noted. Paternal Grandfather , age 62 Stroke Maternal Grandmother , age 89 - Accident No problems noted. Paternal Grandmother , age 68 No problems noted. Social History Smoking/Tobacco Use Status: Never Second Hand Exposure: Yes Smoking risk assessment performed?: Yes Alcohol Intake: never Drug use: Never Substance use type: does not use Counseling given: No Caregiver/Support person: Yes Household members: caregiver Housing: custodial Communication Needs: Hard of Hearing Do you need help understanding health information?: Always Pets and animals: No Sexually active: No Do you think of yourself as: straight/heterosexual Current gender identity: female What is your relationship status?: How often do you talk on the phone with friends or family?: three or more times per week How often do you get together with friends or relatives?: once per week How often do you attend moravian or caodaism services?: 1-3 times per year Do you belong to any clubs or organized social groups?: no Panel score (0-1 are the most socially isolated patients): 1 What type of physical activity do you participate in: walking and weight lifting Duration: < 15 minutes/day Frequency: 1-2 times per week Anai/Scientology: Restorationism Special anai needs: No Seatbelt use: always Helmet use: No Drive intox or ride w/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 Do you feel safe at home: Yes Do you feel safe in your relationship?: Yes Meds Allergies and Home Medications Allergies Allergy/AdvReac Type Severity Reaction Status Date / Time amlodipine Allergy Severe Tongue Verified 05/28/24 17:54 swelling oseltamivir (From Tamiflu) Allergy Mild rash Unverified 05/28/24 17:54 Sulfa (Sulfonamide Allergy Unknown rash, sick Verified 05/28/24 17:54 Antibiotics) to stomach Home Medications ?Medication ?Instructions ?Recorded ?Confirmed ?Type sennosides 8.6 mg tablet (Senna 17.2 mg (2 x 8.6 mg) PO BID #1 tab 05/30/22 05/28/24 Rx Lax) nystatin 100,000 unit/gram topical 1 applic topical BID #30 grams 08/23/22 05/28/24 Rx cream polyethylene glycol 3350 17 17 g PO DAILY 09/20/22 05/28/24 History gram/dose oral powder (Miralax) furosemide 20 mg tablet 20 mg PO 1XD 11/03/22 05/28/24 History spironolactone 25 mg tablet 12.5 mg (1/2 x 25 mg) PO DAILY #15 11/11/22 05/28/24 Rx tabs B-complex with vitamin C 1 cap PO DAILY 02/19/23 05/28/24 History levothyroxine 25 mcg tablet 37.5 mcg PO DAILY 09/18/23 05/28/24 History quetiapine 25 mg tablet 25 mg PO BID 09/18/23 05/28/24 History acetaminophen 325 mg tablet 650 mg PO Q6H PRN 10/22/23 05/28/24 History metoprolol succinate 25 mg 12.5 mg PO DAILY 04/22/24 05/28/24 History tablet,extended release 24 hr Exam Narrative Exam Narrative: 151/74, 58, 37.1, 15, 96% RA. HEENT atraumatic, rhythmic tremor of jaw, dry oral mucosa; neck supple; lu8ngs clear; heart RRR; abdomen soft and NT; extremities w/o edema, 2 cm hyperkeratotic mass overlying left heel; neuro, seems to respond to simple questions with one or two word answers but speech is muffled, moves all 4s Results Labs 05/28/24 18:06 05/28/24 18:06 Labs: Laboratory Results - last 24 hr 05/28/24 05/28/24 05/28/24 18:06 19:48 20:01 WBC 12.81 H RBC 4.80 Hgb 14.2 Hct 43.6 MCV 91 MCH 29.6 MCHC 32.6 RDW 16.9 H Plt Count 151 MPV 11.4 H Immature Gran % 0.4 Neutrophils % 86.5 Lymphocytes % 6.9 Monocytes % 5.9 Eosinophils % 0.1 Basophils % 0.2 Nucleated RBC % 0.0 Absolute Neutrophils 11.08 H Absolute Lymphocytes 0.88 L Absolute Monocytes 0.76 Absolute Eosinophils 0.01 Absolute Basophils 0.03 Sodium 142 Potassium 5.6 H Chloride 104 Carbon Dioxide 20.9 L Anion Gap 17.1 H BUN 37 H Creatinine 1.8 H Est GFR (CKD-EPI 2020) 26.93 Glucose 82 Calcium 10.2 H Magnesium 2.0 Total Bilirubin 0.73 AST 117 H ALT 104 H Alkaline Phosphatase 331 H Troponin I 13 14 NT-Pro-B Natriuret Pep 748 H Total Protein 8.6 H Albumin 3.5 Urine Color Yellow Urine Clarity Clear Urine pH 6.5 Ur Specific Glide 1.015 Urine Protein Negative Urine Ketones Trace H Urine Blood Negative Urine Nitrite Negative Urine Bilirubin Negative Urine Urobilinogen 0.2 Ur Leukocyte Esterase Negative Urine Glucose Negative 05/28/24 20:17 WBC RBC Hgb Hct MCV MCH MCHC RDW Plt Count MPV Immature Gran % Neutrophils % Lymphocytes % Monocytes % Eosinophils % Basophils % Nucleated RBC % Absolute Neutrophils Absolute Lymphocytes Absolute Monocytes Absolute Eosinophils Absolute Basophils Sodium Potassium Chloride Carbon Dioxide Anion Gap BUN Creatinine Est GFR (CKD-EPI 2020) Glucose Calcium Magnesium Total Bilirubin AST ALT Alkaline Phosphatase Troponin I Cancelled NT-Pro-B Natriuret Pep Total Protein Albumin Urine Color Urine Clarity Urine pH Ur Specific Glide Urine Protein Urine Ketones Urine Blood Urine Nitrite Urine Bilirubin Urine Urobilinogen Ur Leukocyte Esterase Urine Glucose Last Vital Signs Pulse 58 L 05/28/24 22:27 Resp 15 05/28/24 22:27 BP 151/74 H 05/28/24 22:01 Pulse Ox 96 05/28/24 22:27 Time Spent Time spent with Patient: 40-54 minutes Time was spent: preparing to see the patient(eg.review tests), obtaining and/or reviewing separately otained hiistory, ordering medications,tests, procedures, referring, communicating with other health care team coordinator scheduler and indepentently interpreting results
[2024-05-29 00:17] VITALS: BP 155/91; PULSE 55; RESP 21; TEMP 37.1; O2SAT 96
[2024-05-29 00:24] LABS: MRSA PCR Negative (Negative)
--- NOTE | 2024-05-29 00:42 | W.PC.ACHO ---
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 Prerenal azotemia Meningioma Acute infective polyneuritis (~04/03/1966) Pneumonia (~07/20/18) Cerebrovascular accident Dislocation of shoulder, anterior, left, closed (04/10/14) Closed displaced fracture of greater tuberosity of left humerus (04/10/14) Closed fracture of head of left humerus (04/10/14) (Last Reviewed 05/28/24 @ 22:39 by Adam Huston MD) Posterior subcapsular age-related cataract, right eye Status post extracapsular cataract extraction of left eye Fracture, Closed Treatment (04/10/14) Cholecystectomy (~1991) Most Recent Vital Signs Temperature 37.1 C 05/29/24 00:17 Pulse 55 L 05/29/24 00:17 Pulse 66 05/28/24 18:45 Respiratory Rate 21 05/29/24 00:17 Respiratory Effort Normal 05/28/24 18:36 Respiratory Depth Normal 05/28/24 18:36 Respiratory Pattern Normal 05/28/24 18:36 Blood Pressure 155/91 H 05/29/24 00:17 Blood Pressure Mean 106 05/28/24 18:45 Pulse Oximetry 96 05/29/24 00:17 Allergies amlodipine Allergy (Severe, Verified 05/28/24 17:54) Tongue swelling oseltamivir (From Tamiflu) Allergy (Mild, Unverified 05/28/24 17:54) rash Sulfa (Sulfonamide Antibiotics) Allergy (Unknown, Verified 05/28/24 17:54) rash, sick to stomach Precautions Isolation Standard precaution 05/28/24 18:36 Active Medications Generic Name Dose Route Start Last Admin Trade Name Freq PRN Reason Stop Dose Admin Iohexol 75 ml 05/28/24 20:45 05/28/24 20:36 Omnipaque 350 Mg/Ml 100 Ml Btl IJ 06/27/24 23:59 75 ml DIRECTED YISEL Administration Sodium Chloride 50 ml 05/28/24 20:45 05/28/24 20:35 Normal Saline - Diluent 50 Ml Vial IJ 50 ml .FOR DI USE YISEL Administration IV IV Catheter Type [Left Saline Lock Antecubital] IV Catheter Gauge [Left 20 Antecubital] Diet Orders Category Date Time Status Regular/Normal [DIET] Nutrition 05/29/24 Breakfast Active Diagnostics 05/28/24 05/28/24 05/28/24 Range/Units 23:05 20:17 20:01 WBC (4.4-10.8) 10^3/uL RBC (3.93-5.22) 10^6/uL Hgb (11.2-15.7) g/dL Hct (36.0-46.0) % MCV (80-95) fL MCH (27.0-33.0) pg MCHC (32.0-36.0) % RDW (11.7-14.6) % Plt Count (130-400) 10^3/uL MPV (8.0-11.0) fL Immature Gran % % Neutrophils % % Lymphocytes % % Monocytes % % Eosinophils % % Basophils % % Nucleated RBC % (0.0-0.3) % Absolute Neutrophils (1.2-6.7) 10^3/uL Absolute Lymphocytes (1.2-3.4) 10^3/uL Absolute Monocytes (0.1-0.8) 10^3/uL Absolute Eosinophils (0.0-0.7) 10^3/uL Absolute Basophils (0.0-0.2) 10^3/uL Sodium (136-145) mmol/L Potassium (3.5-5.1) mmol/L Chloride (98-107) mmol/L Carbon Dioxide (21.0-32.0) mmol/L Anion Gap (3-11) mmol/L BUN (7-18) mg/dL Creatinine (0.55-1.02) mg/dL Est GFR (CKD-EPI 2020) (mL/min/1.73m2) Glucose (74-106) mg/dL Calcium (8.5-10.1) mg/dL Magnesium (1.8-2.4) mg/dL Total Bilirubin (0.2-1.0) mg/dL AST (15-37) U/L ALT (14-59) U/L Alkaline Phosphatase (46-116) U/L Troponin I Cancelled (<or=51) ng/L NT-Pro-B Natriuret Pep (<300) pg/mL Total Protein (6.4-8.2) g/dL Albumin (3.4-5.0) g/dL Urine Color Yellow (Yellow) Urine Clarity Clear (Clear) Urine pH 6.5 (5-8) Ur Specific [place] 1.015 (1.005-1.025) Urine Protein Negative (Neg-Trace) mg/dL Urine Ketones Trace H (Negative) mg/dL Urine Blood Negative (Negative) Urine Nitrite Negative (Negative) Urine Bilirubin Negative (Negative) Urine Urobilinogen 0.2 (Up to 0.2) mg/dL Ur Leukocyte Esterase Negative (Negative) Urine Glucose Negative (Negative) mg/dL MRSA (TEM-PCR) Negative (Negative) 05/28/24 05/28/24 Range/Units 19:48 18:06 WBC 12.81 H (4.4-10.8) 10^3/uL RBC 4.80 (3.93-5.22) 10^6/uL Hgb 14.2 (11.2-15.7) g/dL Hct 43.6 (36.0-46.0) % MCV 91 (80-95) fL MCH 29.6 (27.0-33.0) pg MCHC 32.6 (32.0-36.0) % RDW 16.9 H (11.7-14.6) % Plt Count 151 (130-400) 10^3/uL MPV 11.4 H (8.0-11.0) fL Immature Gran % 0.4 % Neutrophils % 86.5 % Lymphocytes % 6.9 % Monocytes % 5.9 % Eosinophils % 0.1 % Basophils % 0.2 % Nucleated RBC % 0.0 (0.0-0.3) % Absolute Neutrophils 11.08 H (1.2-6.7) 10^3/uL Absolute Lymphocytes 0.88 L (1.2-3.4) 10^3/uL Absolute Monocytes 0.76 (0.1-0.8) 10^3/uL Absolute Eosinophils 0.01 (0.0-0.7) 10^3/uL Absolute Basophils 0.03 (0.0-0.2) 10^3/uL Sodium 142 (136-145) mmol/L Potassium 5.6 H (3.5-5.1) mmol/L Chloride 104 (98-107) mmol/L Carbon Dioxide 20.9 L (21.0-32.0) mmol/L Anion Gap 17.1 H (3-11) mmol/L BUN 37 H (7-18) mg/dL Creatinine 1.8 H (0.55-1.02) mg/dL Est GFR (CKD-EPI 2020) 26.93 (mL/min/1.73m2) Glucose 82 (74-106) mg/dL Calcium 10.2 H (8.5-10.1) mg/dL Magnesium 2.0 (1.8-2.4) mg/dL Total Bilirubin 0.73 (0.2-1.0) mg/dL AST 117 H (15-37) U/L ALT 104 H (14-59) U/L Alkaline Phosphatase 331 H (46-116) U/L Troponin I 14 13 (<or=51) ng/L NT-Pro-B Natriuret Pep 748 H (<300) pg/mL Total Protein 8.6 H (6.4-8.2) g/dL Albumin 3.5 (3.4-5.0) g/dL Urine Color (Yellow) Urine Clarity (Clear) Urine pH (5-8) Ur Specific [place] (1.005-1.025) Urine Protein (Neg-Trace) mg/dL Urine Ketones (Negative) mg/dL Urine Blood (Negative) Urine Nitrite (Negative) Urine Bilirubin (Negative) Urine Urobilinogen (Up to 0.2) mg/dL Ur Leukocyte Esterase (Negative) Urine Glucose (Negative) mg/dL MRSA (TEM-PCR) (Negative) Intake and Output - 24 Hour Total 05/28/24 17:03 thru 05/28/24 20:33 Intake Total 610 Balance 610 Weight 81.8 kg Intake: IV 610 Falls Risk Assessment History of Falls Previous History 05/28/24 18:36 Contributing Factors Unstable,Impairments 05/28/24 18:36 Ambulatory Aids Uses ambulatory device + 05/28/24 18:36 Tubes/Lines With any additional score 05/28/24 18:36 Gait Evaluation W/any additional score 05/28/24 18:36 Cognition Cognitive impairment 05/28/24 18:36 Fall Total Score 106 05/28/24 18:36 Level of Risk Maximum Risk 05/28/24 18:36 Problems (Last Reviewed 05/28/24 @ 22:39 by Adam Huston MD) Adult failure to thrive (Acute) v v v v v v v v v Sending and/or Receiving Nurses: Please use comment section below to note any information pertinent to the patient hand-off not included above. Information / Comments: Report received from: Stacie Norman. 88 year old female who resides at the [facility] this evening for worsing mentation, patient is non-verbal and their is concern about her her swallowing. Palliative consult ordered, Podiatry consult and ASSOCIATE FIELD SERVICE ENGINEER swallow evaluation is ordered. Bottom and Left heel are noted to be excoriated upon admission. Patient to remain in the hopital while all of her testing and treatments occur over the weekend.
[2024-05-29 00:45] VITALS: BP 137/53; PULSE 57; RESP 18; TEMP 36.5; O2SAT 97
[2024-05-29] MEDS: Lactated Ringers 1,000 ML 75 ML IV ×2 (02:35→15:56)
[2024-05-29] MEDS: Normal Saline Flush 10 ML SYR IVP ×3 (04:42→22:07)
[2024-05-29 07:57] VITALS: BP 164/68; PULSE 60; RESP 15; TEMP 36.2; O2SAT 92
--- NOTE | 2024-05-29 10:13 | PGE_ITS ---
Date of Service Date of service: 05/29/24 Time of Service: 10:13 Assessment and Plan Assessment and plan (1) Chronic kidney disease: Status: Chronic Assessment and plan: baseline 1.3-2.0, stable at 1.8 continue to avoid nephrotoxic drugs and renal dose as needed. (2) Hyperkalemia: Status: Acute Assessment and plan: resolved while spironalactone on hold, continue to monitor (3) Adult failure to thrive: Status: Acute Assessment and plan: returning slowly to baseline having difficulty feeding herself today (4) Chronic heart failure with preserved ejection fraction: Status: Chronic Assessment and plan: appears euvolemic with no evidence of exacerbation of chf on gentle IV hydration as not taking in good po resume daily furosemide tomorrow. (5) Hypothyroid: Status: Chronic Assessment and plan: TSH 4.17 continue home levothyroxine (6) Hypertension: Status: Chronic Assessment and plan: blood pressure stable, continue home medications routine monitoring and adjust as needed. Subjective Subjective Patient reports: no new complaints Exam Const Orientation: alert, awake and confused (appears at baseline) HENMT Head: normal to inspection General nose exam: external nose normal Mouth: moist mucous membranes Eyes General: appearance normal, both eyes and all related structures Resp Effort & Inspection: normal respiratory effort Auscultation: clear to auscultation bilaterally Cardio Rate: regular rate GI Palpation: soft and nontender Skin General skin exam: no rashes or lesions noted Extrem General: normal to inspection Psych Mental Status: mental status grossly normal Objective Last Vital Signs Temp 36.2 C L 05/29/24 07:57 Pulse 60 05/29/24 07:57 Resp 15 05/29/24 07:57 BP 164/68 H 05/29/24 07:57 Pulse Ox 92 05/29/24 07:57 Laboratory Results - last 24 hr 05/28/24 05/28/24 05/28/24 18:06 19:48 20:01 WBC 12.81 H RBC 4.80 Hgb 14.2 Hct 43.6 MCV 91 MCH 29.6 MCHC 32.6 RDW 16.9 H Plt Count 151 MPV 11.4 H Immature Gran % 0.4 Neutrophils % 86.5 Lymphocytes % 6.9 Monocytes % 5.9 Eosinophils % 0.1 Basophils % 0.2 Nucleated RBC % 0.0 Absolute Neutrophils 11.08 H Absolute Lymphocytes 0.88 L Absolute Monocytes 0.76 Absolute Eosinophils 0.01 Absolute Basophils 0.03 Sodium 142 Potassium 5.6 H Chloride 104 Carbon Dioxide 20.9 L Anion Gap 17.1 H BUN 37 H Creatinine 1.8 H Est GFR (CKD-EPI 2020) 26.93 Glucose 82 Calcium 10.2 H Magnesium 2.0 Total Bilirubin 0.73 AST 117 H ALT 104 H Alkaline Phosphatase 331 H Troponin I 13 14 NT-Pro-B Natriuret Pep 748 H Total Protein 8.6 H Albumin 3.5 Urine Color Yellow Urine Clarity Clear Urine pH 6.5 Ur Specific [place] 1.015 Urine Protein Negative Urine Ketones Trace H Urine Blood Negative Urine Nitrite Negative Urine Bilirubin Negative Urine Urobilinogen 0.2 Ur Leukocyte Esterase Negative Urine Glucose Negative MRSA (TEM-PCR) 05/28/24 05/28/24 20:17 23:05 WBC RBC Hgb Hct MCV MCH MCHC RDW Plt Count MPV Immature Gran % Neutrophils % Lymphocytes % Monocytes % Eosinophils % Basophils % Nucleated RBC % Absolute Neutrophils Absolute Lymphocytes Absolute Monocytes Absolute Eosinophils Absolute Basophils Sodium Potassium Chloride Carbon Dioxide Anion Gap BUN Creatinine Est GFR (CKD-EPI 2020) Glucose Calcium Magnesium Total Bilirubin AST ALT Alkaline Phosphatase Troponin I Cancelled NT-Pro-B Natriuret Pep Total Protein Albumin Urine Color Urine Clarity Urine pH Ur Specific [place] Urine Protein Urine Ketones Urine Blood Urine Nitrite Urine Bilirubin Urine Urobilinogen Ur Leukocyte Esterase Urine Glucose MRSA (TEM-PCR) Negative Time Spent with Patient Time Spent with Patient: 35-49 minutes Time was spent: preparing to see the patient(eg.review tests), obtaining and/or reviewing separately otained hiistory, ordering medications,tests, procedures and indepentently interpreting results
[2024-05-29 11:07] LABS: Anion Gap 10.4 mmol/L (3-11); BUN 41 mg/dL (7-18); CO2 23.6 mmol/L (21.0-32.0); CREATININE 1.8 mg/dL (0.55-1.02); Calcium 9.8 mg/dL (8.5-10.1); Chloride 106 mmol/L (98-107); Estimated GFR 26.93 (mL/min/1.73m2); Glucose 132 mg/dL (74-106); Potassium 4.5 mmol/L (3.5-5.1); Sodium 140 mmol/L (136-145)
[2024-05-29] MEDS: Polyethylene Glycol 3350 17 GM PACKET PO (11:08)
[2024-05-29] MEDS: Metoprolol CR 25 MG TABCR 12.5 MG PO (11:09)
[2024-05-29] MEDS: QUEtiapine 25 MG TAB PO ×2 (11:10→22:06)
[2024-05-29] MEDS: Levothyroxine 25 MCG TAB 37.5 MCG PO (11:12)
--- NOTE | 2024-05-29 12:11 | PDOC.CMIN ---
Date of service: 05/29/24 Time of Service: 12:11 Care Management Initial Assmt Initial Assessment Reason for Hospitalization: failure to thrive Functional Status/Living Situation Patient Presentation: Meredith was admitted yesterday from [facility], where she lives, with a diagnosis of failure to thrive. She has baseline dementia and has not been eating or drinking much in the past few days. Her family has requested that no aggressive measures be taken in terms of treatments or investigations. Meredith was sitting up in a chair when CM met with her. She stared at CM but really did not engage in conversation or fully answer questions. Meredith has had very little PO intake today and has only voided 150cc. She is being hydrated with IV fluids and will likely return to [facility] on Friday. Meredith has 2 adult children: daughter Yris who lives in [place] and son Diego in [place]. Town of Residence: [place] Resides with: Other (SNF) Employment Status: Unemployed Instrumental Activities of Daily Living (ADLs): Requires support Medications Medication Management: No Issues/Barriers identified Advance Directives Advance Directives: Do you have an Advance Directive: Y 05/10/22 12:57 AD On File at [facility]: Y 09/18/23 10:23 Date Asked 05/28/24 05/28/24 17:14 AD Date Reviewed 05/27/24 05/27/24 11:18 COLST On File at [facility] Yes 05/10/22 12:57 COLST Date Scanned 04/04/22 09/18/23 10:23 Code Status Resuscitation Status DNR/DNI Insurance Coverage/Financial Issues Insurance: Medicare Medicaid Care Team Visit Care Team Role Provider Type Meera Lockett Primary Care Provider NON-[facility] STAFF PHYSICIAN Catherine Nguyễn, DPM Other [facility] Henrik Correa CRNA Other Providers CERT [facility] NURSE FLORICULTURE TEACHER ALLISON MartinezM Other [facility]iders [facility] Dorie Joya MD Emergency Provider [facility] STAFF PHYSICIAN Adam Huston MD Admit Provider [facility] STAFF PHYSICIAN Attending Provider Discharge Potential Discharge Needs: Other (SNF) Anticipated Barriers to Discharge: None Identified Patient/Family Education Needs: Review discharge instructions, discuss Ask Me Three Transportation: EMS Plan: Anticipate Meredith will return to the [facility] when medically cleared. She will follow up with facility providers and plan of care and transport with EMS coordinated by CM. CM will follow and continue to support discharge planning efforts. Social Determinants of Health Screening Will the Patient Participate in the Screening?: Unable to obtain PFSH All Active Problems (Updated 05/30/24 @ 14:58 by Laxmi Bose NP) Discharge planning issues (Acute) Hyperkalemia (Acute) Chronic kidney disease (Chronic) Adult failure to thrive (Acute) Encephalopathy (Acute) Acute dehydration (Acute) Hypertensive urgency (Acute) skilled nursing resident (Acute) DNR no code (do not resuscitate) (Acute) Dementia with behavioral disturbance (Acute) Chronic heart failure with preserved ejection fraction (Chronic) Macular degeneration (Acute) Essential tremor (Acute) familial Gait abnormality (Acute) uses a walker when out, balance and shuffling steps Prediabetes (Chronic) 03/26/21- A1c 5.9 [facility] Hypertension (Chronic) Anxiety (Chronic) CKD (chronic kidney disease) stage 3, GFR 30-59 ml/min (Chronic) Hypothyroid (Chronic) 03/26/21- TSH 2.95 [facility]0 WNL Memory changes (Acute) Dyspnea (Acute) Left lower lobe pulmonary nodule (Acute) PET 10/2021: highly metabolically active left lower mass, organizing pneumonia vs. 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 states she is unaware of this. 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 Incidental findings. Pt. states she is unaware of this dx. Dislocation of shoulder, anterior, left, closed (04/10/14) Closed displaced fracture of greater tuberosity of left humerus (04/10/14) Closed fracture of head of left humerus (04/10/14) Surgical History Posterior subcapsular age-related cataract, right eye Status post extracapsular cataract extraction of left eye Fracture, Closed Treatment (04/10/14) LEFT SHOULDER FX AND DISLOCATED Cholecystectomy (~1991) Family History Mother , age 56 Cancer Father , age 76 Heart disease Sister No problems noted. Son No problems noted. Daughter No problems noted. Maternal Grandfather , age 78 No problems noted. Paternal Grandfather , age 62 Stroke Maternal Grandmother , age 89 - Accident No problems noted. Paternal Grandmother , age 68 No problems noted. Social History Smoking/Tobacco Use Status: Never Second Hand Exposure: Yes Smoking risk assessment performed?: Yes Alcohol Intake: never Drug use: Never Substance use type: does not use Counseling given: No Caregiver/Support person: Yes Household members: caregiver Housing: skilled nursing Communication Needs: Hard of Hearing Do you need help understanding health information?: Always Pets and animals: No Sexually active: No Do you think of yourself as: straight/heterosexual Current gender identity: female What is your relationship status?: How often do you talk on the phone with friends or family?: three or more times per week How often do you get together with friends or relatives?: once per week How often do you attend restorationism or tenriism services?: 1-3 times per year Do you belong to any clubs or organized social groups?: no Panel score (0-1 are the most socially isolated patients): 1 What type of physical activity do you participate in: walking and weight lifting Duration: < 15 minutes/day Frequency: 1-2 times per week Anai/Restoration: Rastafarian Special anai needs: No Seatbelt use: always Helmet use: No Drive intox or ride w/intox combine driver: No Do you feel safe at home: Yes Do you feel safe in your relationship?: Yes
[2024-05-29] MEDS: Senna TAB 1 TAB PO ×2 (12:48→22:06)
[2024-05-29 15:36] VITALS: BP 152/86; PULSE 47; RESP 15; TEMP 36.7; O2SAT 96
[2024-05-29 20:00] VITALS: BP 169/74; PULSE 48; RESP 15; TEMP 36.6; O2SAT 96
[2024-05-30 03:23] VITALS: BP 158/94; PULSE 55; RESP 15; TEMP 36.7; O2SAT 97
[2024-05-30] MEDS: Lactated Ringers 1,000 ML 75 ML IV (05:53)
[2024-05-30 06:42] LABS: Abs Immature Grans 0.05 10^3/uL (0.0-0.06); Absolute Basophil Count 0.03 10^3/uL (0.0-0.2); Absolute Eosinophil Count 0.05 10^3/uL (0.0-0.7); Absolute Lymphocyte Count 1.01 10^3/uL (1.2-3.4); Absolute Monocyte Count 0.74 10^3/uL (0.1-0.8); Absolute Neutrophil Count 7.74 10^3/uL (1.2-6.7); Basophils % 0.3 %; Eosinophils % 0.5 %; HCT 38.3 % (36.0-46.0); HGB 12.5 g/dL (11.2-15.7); Immature Grans % 0.5 %; Lymphocytes % 10.5 %; MCH 29.8 pg (27.0-33.0); MCHC 32.6 % (32.0-36.0); MCV 91 fL (80-95); MPV 11.5 fL (8.0-11.0); Monocytes % 7.7 %; Neutrophils % 80.5 %; Platelet Count 138 10^3/uL (130-400); RDW 16.6 % (11.7-14.6); RDW-SD 55.1 fL; WBC 9.62 10^3/uL (4.4-10.8)
[2024-05-30 06:55] LABS: Anion Gap 8.2 mmol/L (3-11); BUN 35 mg/dL (7-18); CO2 26.8 mmol/L (21.0-32.0); CREATININE 1.4 mg/dL (0.55-1.02); Calcium 10.3 mg/dL (8.5-10.1); Chloride 107 mmol/L (98-107); Estimated GFR 36.41 (mL/min/1.73m2); Glucose 96 mg/dL (74-106); Potassium 4.1 mmol/L (3.5-5.1); Sodium 142 mmol/L (136-145)
[2024-05-30] MEDS: Enoxaparin 30 MG/0.3 ML SYR SC (13:36)
--- NOTE | 2024-05-30 14:56 | W.PM.PROGNOT ---
Date of Service Date of service: 05/30/24 Time of Service: 14:56 Assessment and Plan Assessment and plan (1) Chronic kidney disease: Status: Chronic Assessment and plan: baseline 1.3-2.0, now at 1.4 continue to avoid nephrotoxic drugs and renal dose as needed. (2) Hyperkalemia: Status: Acute Assessment and plan: resolved while spironalactone on hold, continue to monitor (3) Adult failure to thrive: Status: Acute Assessment and plan: returning slowly to baseline having difficulty feeding herself (4) Chronic heart failure with preserved ejection fraction: Status: Chronic Assessment and plan: appears euvolemic with no evidence of exacerbation of chf on gentle IV hydration as not taking in good po resume daily furosemide tomorrow. (5) Hypothyroid: Status: Chronic Assessment and plan: TSH 4.17 continue home levothyroxine (6) Hypertension: Status: Chronic Assessment and plan: blood pressure stable, continue home medications routine monitoring and adjust as needed. (7) Discharge planning issues: Status: Acute Assessment and plan: palliative care consult [facility] discussed with DR Hughes Subjective Subjective Interval history since last seen: some agitation today, redirected, Exam Const Orientation: alert, awake and confused (appears at baseline) HENMT Head: normal to inspection General nose exam: external nose normal Mouth: moist mucous membranes Eyes General: appearance normal, both eyes and all related structures Resp Effort & Inspection: normal respiratory effort Auscultation: clear to auscultation bilaterally Cardio Rate: regular rate GI Palpation: soft and nontender Skin General skin exam: no rashes or lesions noted Extrem General: normal to inspection Psych Mental Status: mental status grossly normal Objective Last Vital Signs Temp 36.7 C 05/30/24 03:23 Pulse 55 L 05/30/24 03:23 Resp 15 05/30/24 03:23 BP 158/94 H 05/30/24 03:23 Pulse Ox 97 05/30/24 03:23 Laboratory Results - last 24 hr 05/30/24 06:04 WBC 9.62 RBC 4.20 Hgb 12.5 Hct 38.3 MCV 91 MCH 29.8 MCHC 32.6 RDW 16.6 H Plt Count 138 MPV 11.5 H Immature Gran % 0.5 Neutrophils % 80.5 Lymphocytes % 10.5 Monocytes % 7.7 Eosinophils % 0.5 Basophils % 0.3 Nucleated RBC % 0.0 Absolute Neutrophils 7.74 H Absolute Lymphocytes 1.01 L Absolute Monocytes 0.74 Absolute Eosinophils 0.05 Absolute Basophils 0.03 Sodium 142 Potassium 4.1 Chloride 107 Carbon Dioxide 26.8 Anion Gap 8.2 BUN 35 H Creatinine 1.4 H Est GFR (CKD-EPI 2020) 36.41 Glucose 96 Calcium 10.3 H Time Spent with Patient Time Spent with Patient: 25-34 minutes Time was spent: preparing to see the patient(eg.review tests), obtaining and/or reviewing separately otained hiistory, ordering medications,tests, procedures, referring, communicating with other health patient care representative and indepentently interpreting results
[2024-05-30] MEDS: Normal Saline Flush 10 ML SYR IVP (21:50)
[2024-05-31 05:15] VITALS: RESP 16
[2024-05-31 07:11] LABS: Abs Immature Grans 0.04 10^3/uL (0.0-0.06); Absolute Basophil Count 0.03 10^3/uL (0.0-0.2); Absolute Eosinophil Count 0.02 10^3/uL (0.0-0.7); Absolute Lymphocyte Count 0.97 10^3/uL (1.2-3.4); Absolute Monocyte Count 0.68 10^3/uL (0.1-0.8); Absolute Neutrophil Count 7.42 10^3/uL (1.2-6.7); Basophils % 0.3 %; Eosinophils % 0.2 %; HCT 41.5 % (36.0-46.0); HGB 13.4 g/dL (11.2-15.7); Immature Grans % 0.4 %; Lymphocytes % 10.6 %; MCH 29.5 pg (27.0-33.0); MCHC 32.3 % (32.0-36.0); MCV 91 fL (80-95); MPV 12.1 fL (8.0-11.0); Monocytes % 7.4 %; Neutrophils % 81.1 %; Platelet Count 127 10^3/uL (130-400); RBC 4.55 10^6/uL (3.93-5.22); RDW 16.5 % (11.7-14.6); WBC 9.16 10^3/uL (4.4-10.8)
[2024-05-31 07:29] LABS: Anion Gap 15.2 mmol/L (3-11); BUN 30 mg/dL (7-18); CO2 20.8 mmol/L (21.0-32.0); CREATININE 1.4 mg/dL (0.55-1.02); Calcium 10.1 mg/dL (8.5-10.1); Chloride 106 mmol/L (98-107); Estimated GFR 36.41 (mL/min/1.73m2); Glucose 83 mg/dL (74-106); Potassium 4.7 mmol/L (3.5-5.1); Sodium 142 mmol/L (136-145)
--- NOTE | 2024-05-31 09:36 | PDOC.CMPRO ---
Date of service: 05/31/24 Time of Service: 09:36 Care Management Progress Note Progress Note Text Progress Note Text: Anticipate Meredith will return to the [facility] when Medically ready. Palliative to follow goals at care at the [facility]. Discharge Anticipated Barriers to Discharge: None Identified Patient/Family Education Needs: Review discharge instructions, discuss Ask Me Three Transportation: RCT (w/c van) Plan: Anticipate Meredith will return to the [facility] when medically cleared. She will follow up with facility providers and plan of care and transport with EMS coordinated by CM. CM will follow and continue to support discharge planning efforts. Social Determinants of Health Screening Will the Patient Participate in the Screening?: Unable to obtain
--- NOTE | 2024-05-31 10:13 | POCOE_ITS ---
Date of service: 05/31/24 Time of Service: 09:30 Assessment and Plan Assessment and plan (1) Unstageable pressure ulcer of left heel: Status: Acute (2) Adult failure to thrive: Status: Acute (3) [facility] resident: Status: Acute Assessment and plan: Patient was seen bedside today. She was awake and reported pain. Otherwise not very communicative. There is hyperkeratotic tissue which is mobile with eschar and there which is an unstageable ulcer at this time to the posterior aspect of the left heel. There is no evidence for any erythema, edema, drainage or malodor or fluctuance or bogginess to indicate any infection. X-rays were reviewed today and do not demonstrate any evidence for osteomyelitis. This ulcer will benefit from debridement at some point however, given the patient's pain and positioning at this time, I will hold off on this. Additionally, family has expressed a wish that we not pursue any aggressive workup or interventions at this time and therefore I will continue to hold off on debridement as this will cause her pain. I would recommend a debridement of this wound once the patient is feeling better so as to prevent worsening. For now, I recommend OPTi foam border dressing to be applied every other day by nursing. I applied this today for her. I recommend Prevalon boots for offloading bilateral lower extremity. No surgical intervention is planned or indicated at this time. Patient to follow-up outpatient within 1 to 2 weeks of discharge. History of Present Illness Narrative: 88-year-old female patient with dementia, resident of [facility]. Presented to the ER with several days of poor p.o. intake, some discomfort and altered mental status. Podiatry consulted for left heel wound. Patient is awake and reports some pain to the left heel. Offers no other complaints. Review of Systems Cardiovascular Cardiovascular: Reports leg ulcers and Denies dyspnea Respiratory Respiratory: Denies dyspnea Musculoskeletal Musculoskeletal: Reports atrophy and Reports deformity Integumentary/Breasts Skin/Breast: Reports skin ulcer PFSH All Active Problems (Updated 05/31/24 @ 10:22 by Catherine Nguyễn DPM) Unstageable pressure ulcer of left heel (Acute) Discharge planning issues (Acute) Hyperkalemia (Acute) Chronic kidney disease (Chronic) Adult failure to thrive (Acute) Encephalopathy (Acute) Acute dehydration (Acute) [facility] resident (Acute) DNR no code (do not resuscitate) (Acute) Dementia with behavioral disturbance (Acute) Chronic heart failure with preserved ejection fraction (Chronic) Yeast dermatitis (Acute) Plantar wart, right foot (Acute) Onychogryphosis (Acute) Advanced care planning/counseling discussion (Acute) Palliative care patient (Acute) Episode of unresponsiveness (Acute) Stroke (Chronic) Left lower lobe pulmonary nodule (Acute) PET 10/2021: highly metabolically active left lower mass, organizing pneumonia vs. 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 states she is unaware of this. Acute infective polyneuritis (~04/03/1966) Pneumonia (~07/20/18) Cerebrovascular accident 06/12 CT @ [facility]: SMALL LACUNAR INFARCTS. Incidental findings. Pt. states she is unaware of this dx. Dislocation of shoulder, anterior, left, closed (04/10/14) Closed displaced fracture of greater tuberosity of left humerus (04/10/14) Closed fracture of head of left humerus (04/10/14) Surgical History Posterior subcapsular age-related cataract, right eye Status post extracapsular cataract extraction of left eye Fracture, Closed Treatment (04/10/14) LEFT SHOULDER FX AND DISLOCATED Cholecystectomy (~1991) Family History Mother , age 56 Cancer Father , age 76 Heart disease Sister No problems noted. Son No problems noted. Daughter No problems noted. Maternal Grandfather , age 78 No problems noted. Paternal Grandfather , age 62 Stroke Maternal Grandmother , age 89 - Accident No problems noted. Paternal Grandmother , age 68 No problems noted. Social History Smoking/Tobacco Use Status: Never Second Hand Exposure: Yes Smoking risk assessment performed?: Yes Alcohol Intake: never Drug use: Never Substance use type: does not use Counseling given: No Caregiver/Support person: Yes Household members: caregiver Housing: residential Communication Needs: Hard of Hearing Do you need help understanding health information?: Always Pets and animals: No Sexually active: No Do you think of yourself as: straight/heterosexual Current gender identity: female What is your relationship status?: How often do you talk on the phone with friends or family?: three or more times per week How often do you get together with friends or relatives?: once per week How often do you attend oriental orthodox or druze services?: 1-3 times per year Do you belong to any clubs or organized social groups?: no Panel score (0-1 are the most socially isolated patients): 1 What type of physical activity do you participate in: walking and weight lifting Duration: < 15 minutes/day Frequency: 1-2 times per week Anai/Church: Mosque Special anai needs: No Seatbelt use: always Helmet use: No Drive intox or ride w/intox milk driver: No Do you feel safe at home: Yes Do you feel safe in your relationship?: Yes Exam Extrem Other: Bilateral lower extremity physical exam: Derm: Hyperkeratosis/unstageable ulcer to the posterior aspect of the left heel with tenderness to palpation the hyperkeratotic tissue is loose and mobile, there is some eschar noted centrally, however, no periwound erythema, no edema, no drainage no malodor., No fluctuance no bogginess no crepitus. Unable to determine depth. No other lesions or ulcers. Skin is warm, dry and supple bilaterally. Vascular: DP, PT pulses bilaterally are 1/4, hair growth is absent, no varicosities no telangiectasias skin is cool to touch. MSK: No pain on palpation, muscle strength testing deferred today. There is pain to the posterior aspect of the left heel however. Results Last Vital Signs Temp 98.1 F 05/30/24 03:23 Pulse 55 L 05/30/24 03:23 Resp 16 05/31/24 05:15 BP 158/94 H 05/30/24 03:23 Pulse Ox 97 05/30/24 03:23 Labs 05/31/24 06:19 05/31/24 06:19 Labs: Laboratory Results - last 24 hr 05/31/24 06:19 WBC 9.16 RBC 4.55 Hgb 13.4 Hct 41.5 MCV 91 MCH 29.5 MCHC 32.3 RDW 16.5 H Plt Count 127 L MPV 12.1 H Immature Gran % 0.4 Neutrophils % 81.1 Lymphocytes % 10.6 Monocytes % 7.4 Eosinophils % 0.2 Basophils % 0.3 Nucleated RBC % 0.0 Absolute Neutrophils 7.42 H Absolute Lymphocytes 0.97 L Absolute Monocytes 0.68 Absolute Eosinophils 0.02 Absolute Basophils 0.03 Sodium 142 Potassium 4.7 Chloride 106 Carbon Dioxide 20.8 L Anion Gap 15.2 H BUN 30 H Creatinine 1.4 H Est GFR (CKD-EPI 2020) 36.41 Glucose 83 Calcium 10.1
--- NOTE | 2024-05-31 13:00 | W.PM.PROGNOT ---
Date of Service Date of service: 05/31/24 Time of Service: 13:00 Objective Last Vital Signs Temp 36.7 C 05/30/24 03:23 Pulse 55 L 05/30/24 03:23 Resp 16 05/31/24 05:15 BP 158/94 H 05/30/24 03:23 Pulse Ox 97 05/30/24 03:23 Laboratory Results - last 24 hr 05/31/24 06:19 WBC 9.16 RBC 4.55 Hgb 13.4 Hct 41.5 MCV 91 MCH 29.5 MCHC 32.3 RDW 16.5 H Plt Count 127 L MPV 12.1 H Immature Gran % 0.4 Neutrophils % 81.1 Lymphocytes % 10.6 Monocytes % 7.4 Eosinophils % 0.2 Basophils % 0.3 Nucleated RBC % 0.0 Absolute Neutrophils 7.42 H Absolute Lymphocytes 0.97 L Absolute Monocytes 0.68 Absolute Eosinophils 0.02 Absolute Basophils 0.03 Sodium 142 Potassium 4.7 Chloride 106 Carbon Dioxide 20.8 L Anion Gap 15.2 H BUN 30 H Creatinine 1.4 H Est GFR (CKD-EPI 2020) 36.41 Glucose 83 Calcium 10.1
--- NOTE | 2024-05-31 13:21 | W.PM.DS.N ---
Date of service: 05/31/24 Time of Service: 13:54 DS: Diagnosis Discharge Diagnosis (1) Unstageable pressure ulcer of left heel: Status: Acute (2) Adult failure to thrive: Status: Acute (3) alf resident: Status: Acute Discharge Plan Disposition Patient Disposition: [facility] Facility(SNF) Condition: Stable Condition: Poor Discharge Details Reason For Visit: Dehydration Admit Date/Time: 05/28/24 22:51 Admit Provider: Adam Huston Attending Provider: Adam Huston Primary Care Provider: Meera Lockett Hospital Course Hospital Course: The patient is an 88-year-old female with a diagnosis of dementia, currently residing at [facility]. She presented to the emergency room 05/28/2024, as the nursing staff reported that for the past two days, the patient had not been eating or drinking and had generalized weakness, Nursing staff also noted that they were unable to assist the patient out of bed . Lab work obtained had no acute abnormalities.? There was no significant dehydration or electrolyte problem.? Thyroid function was within normal limits.? There was no change in her EKG or heart blood work.? Her urinalysis did not have an infection.? A head CT was obtained and this is stable from prior.? The patient did have some high blood pressure.? The patient was observed to drink in the emergency department.? At that time there was no admittable diagnosis and it is suspected her symptoms are secondary to her ongoing dementia process. and was discharged back to [facility] On? 05/29/2024 the patient presented to the emergency department with complaints of poor oral intake over several days, altered mental status (suspect staff reported)? and general discomfort. Upon evaluation, the patient was awake and reported pain to the left heel but did not have any other specific complaints. Family members indicated concerns regarding the patient's worsening condition, though the patient herself was not very communicative. The patient's medical workup revealed mild leukocytosis, elevated potassium, mild liver enzyme elevations, and some renal function changes, including elevated blood urea nitrogen and creatinine levels. There were no significant findings in the urinalysis, and imaging, including a computed tomography scan of the abdomen and pelvis, did not show any acute abnormalities. The patient also has a known left lower lobe mass, which is presumed to be malignancy; however, the family has expressed a desire not to pursue further investigation or treatment for this. A repeat head CT, which was negative yesterday, was declined by the family. The patient was evaluated by podiatry. The patient was awake and reported pain to the left heel. Upon examination, there was hyperkeratotic tissue, which was mobile with eschar, and an unstageable ulcer at the posterior aspect of the left heel. There was no evidence of erythema, edema, drainage, malodor, or fluctuance to suggest infection. X-rays were reviewed, and there was no indication of osteomyelitis. Given the patient's current pain and positioning, debridement of the wound was deferred at this time. The family has expressed that they do not wish to pursue aggressive interventions, including debridement, at this stage, as it may cause the patient additional discomfort. It is recommended that debridement be considered when the patient?s condition improves to prevent further worsening of the ulcer. Podiatry recommendations: ? Wound Care: Recommended applying OPTi foam border dressing every other day, which was applied today. ? Offloading: Prevalon boots are recommended for offloading both lower extremities to reduce pressure on the ulcer. ? No Surgical Intervention: At this time, no surgical intervention is planned or indicated for the heel ulcer. ? Follow-Up: The patient is advised to follow up with podiatry in 1 to 2 weeks following discharge. In addition to the previously noted findings, the patient displayed some aggression toward the hospital staff during her stay. She was observed yelling and exhibiting verbal agitation, which is consistent with her underlying dementia. This behavior was managed with supportive care, and the patient?s symptoms were closely monitored for any further escalation. Her poor oral intake is likely exacerbated by her cognitive decline and the advanced stage of her dementia. This could also be contributing to her weakness and altered mental status. Staff encouraged regular small sips of fluids to prevent dehydration. She was able to swallow soft foods. The family has indicated a desire not to pursue further workup or aggressive interventions for the known left lower lobe mass or any other ongoing health concerns at this time. Continue medications prior to hospitalization. The patient is stable and discharged via EMS back to [facility]. Discharge Plan: ? Continue wound care as recommended, including the application of OPTi foam border dressing and the use of Prevalon boots. ? No aggressive interventions planned for the heel ulcer until the patient?s condition improves. ? No surgical interventions indicated at this time. ? Continue supportive care, including oral and intravenous medications as needed. ? Follow-up in 1 to 2 weeks with podiatry for evaluation of the wound. ? Family and [facility] staff to monitor for changes in condition and seek medical attention if necessary. ? ? Home Meds and New Rx's Prescriptions: Continued sennosides [Senna Lax] 8.6 mg tablet 17.2 mg PO BID Qty: 1 0RF polyethylene glycol 3350 [Miralax] 17 gram/dose powder 17 g PO DAILY nystatin 100,000 unit/gram cream 1 applic topical BID Qty: 30 0RF acetaminophen 325 mg tablet 650 mg PO Q6H PRN metoprolol succinate 25 mg tablet extended release 24 hr 12.5 mg PO DAILY B-complex with vitamin C Capsule 1 cap PO DAILY levothyroxine 25 mcg tablet 37.5 mcg PO DAILY quetiapine 25 mg tablet 25 mg PO BID furosemide 20 mg tablet 20 mg PO 1XD spironolactone 25 mg Tablet 12.5 mg PO DAILY Qty: 15 0RF Discharge Instructions Referrals: Meera Lockett [Primary Care Provider] - Catherine Nguyễn DPM [[facility] ST[facility]FF [facility]] - () Activity:: Activity as Tolerated Equipment/Supplies:: per [facility] Diet:: As Tolerated DS: Summary Time Spent with Patient providing and/or coordinating discharge services: Greater than 30 minutes Status at Discharge Functional status at discharge: bed bound Overall status at discharge: patient is back to baseline Mental Status: other Speech and Movement: restless Mood: other Affect: hostile Quality:SDOH Health Related Social Needs: No Data to Display Exam Narrative Exam Narrative: Review of Systems: All systems reviewed & are unremarkable except as noted in HPI, nursing notes reviewed Elderly frail NCAT Repetitive tremor-like movement of the jaw Dry mucous membranes Bradycardia ~50bpm, afebrile, 152/86 96% RA, RR 16 Unlabored respiratory effort clear bilaterally Nondistended abdomen soft nontender Extremities w/o deformity, no cyanosis, no edema very flat affect with minimal movement other than her jaw Psych Mental Status: other Speech and Movement: restless Mood: other Affect: hostile DS: Data Vitals/I&O Vitals and I&O: Vital Signs Temperature 36.7 C 05/30/24 03:23 Temperature Source Temporal Artery Scan 05/30/24 03:23 Pulse 55 L 05/30/24 03:23 Pulse Rhythm Regular 05/29/24 00:45 Pulse 66 05/28/24 18:45 Respiratory Rate 16 05/31/24 05:15 Respiratory Effort Normal 05/29/24 00:45 Respiratory Depth Normal 05/29/24 00:45 Respiratory Pattern Normal 05/29/24 00:45 Blood Pressure 158/94 H 05/30/24 03:23 Blood Pressure Mean 106 05/28/24 18:45 Pulse Oximetry 97 05/30/24 03:23 Oxygen Delivery Method Room Air 05/30/24 03:23 Oxygen Flow Rate 0 05/30/24 03:23 Pain Level 0 05/29/24 15:36 Comment patient becomes combative when all other vital signs are attempted 05/31/24 05:15 Intake & Output 05/30/24 05/31/24 05/31/24 23:59 11:59 23:59 Intake Total 0 / 1375 Balance 0 / 1125 Intake: IV 0 / 1375 Other: Urine Color Light Luiza Stool Size Moderate Small Stool Characteristics Soft Soft Liquid Data Completed and Pending Labs on day of discharge: Labs from last 24 hours 05/31/24 06:19 WBC 9.16 RBC 4.55 Hgb 13.4 Hct 41.5 MCV 91 MCH 29.5 MCHC 32.3 RDW 16.5 H Plt Count 127 L MPV 12.1 H Immature Gran % 0.4 Neutrophils % 81.1 Lymphocytes % 10.6 Monocytes % 7.4 Eosinophils % 0.2 Basophils % 0.3 Nucleated RBC % 0.0 Absolute Neutrophils 7.42 H Absolute Lymphocytes 0.97 L Absolute Monocytes 0.68 Absolute Eosinophils 0.02 Absolute Basophils 0.03 Sodium 142 Potassium 4.7 Chloride 106 Carbon Dioxide 20.8 L Anion Gap 15.2 H BUN 30 H Creatinine 1.4 H Est GFR (CKD-EPI 2020) 36.41 Glucose 83 Calcium 10.1 PFSH All Active Problems (Updated 05/31/24 @ 10:22 by Catherine Nguyễn DPM) Unstageable pressure ulcer of left heel (Acute) Discharge planning issues (Acute) Hyperkalemia (Acute) Chronic kidney disease (Chronic) Adult failure to thrive (Acute) Encephalopathy (Acute) Acute dehydration (Acute) Hypertensive urgency (Acute) alf resident (Acute) DNR no code (do not resuscitate) (Acute) Dementia with behavioral disturbance (Acute) Chronic heart failure with preserved ejection fraction (Chronic) Macular degeneration (Acute) Essential tremor (Acute) familial Gait abnormality (Acute) uses a walker when out, balance and shuffling steps Prediabetes (Chronic) 03/26/21- A1c 5.9 [facility] Hypertension (Chronic) Anxiety (Chronic) CKD (chronic kidney disease) stage 3, GFR 30-59 ml/min (Chronic) Hypothyroid (Chronic) 03/26/21- TSH 2.95 UVM0 WNL Memory changes (Acute) Dyspnea (Acute) Left lower lobe pulmonary nodule (Acute) PET 10/2021: highly metabolically active left lower mass, organizing pneumonia vs. 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 states she is unaware of this. Acute infective polyneuritis (~04/03/1966) Pneumonia (~07/20/18) Cerebrovascular [facility] SMALL LACUNAR INFARCTS. Incidental findings. Pt. states she is unaware of this dx. Dislocation of shoulder, anterior, left, closed (04/10/14) Closed displaced fracture of greater tuberosity of left humerus (04/10/14) Closed fracture of head of left humerus (04/10/14) Surgical History Posterior subcapsular age-related cataract, right eye Status post extracapsular cataract extraction of left eye Fracture, Closed Treatment (04/10/14) LEFT SHOULDER FX AND DISLOCATED Cholecystectomy (~1991) Family History Mother , age 56 Cancer Father , age 76 Heart disease Sister No problems noted. Son No problems noted. Daughter No problems noted. Maternal Grandfather , age 78 No problems noted. Paternal Grandfather , age 62 Stroke Maternal Grandmother , age 89 - Accident No problems noted. Paternal Grandmother , age 68 No problems noted. Social History Smoking/Tobacco Use Status: Never Second Hand Exposure: Yes Smoking risk assessment performed?: Yes Alcohol Intake: never Drug use: Never Substance use type: does not use Counseling given: No Caregiver/Support person: Yes Household members: caregiver Housing: snf Communication Needs: Hard of Hearing Do you need help understanding health information?: Always Pets and animals: No Sexually active: No Do you think of yourself as: straight/heterosexual Current gender identity: female What is your relationship status?: How often do you talk on the phone with friends or family?: three or more times per week How often do you get together with friends or relatives?: once per week How often do you attend rastafari or mandaen services?: 1-3 times per year Do you belong to any clubs or organized social groups?: no Panel score (0-1 are the most socially isolated patients): 1 What type of physical activity do you participate in: walking and weight lifting Duration: < 15 minutes/day Frequency: 1-2 times per week Anai/Catholic: Latter-Day Special anai needs: No Seatbelt use: always Helmet use: No Drive intox or ride w/intox medical driver: No Do you feel safe at home: Yes Do you feel safe in your relationship?: Yes Time Spent with Patient Time Spent with Patient: 45-69 minutes Time was spent: preparing to see the patient(eg.review tests), ordering medications,tests, procedures, referring, communicating with other health resident care coordinator, indepentently interpreting results, counseling the patient and care coordination
--- NOTE | 2024-05-31 14:35 | PDOC.CMDIS ---
Date of service: 05/31/24 Time of Service: 14:36 LACE Index Scoring Tool Questions: Length of Stay (in days): 3 Was the patient admitted via the E.D.?: Yes Comorbidities: Mild Liver/Renal Disease Care Management Discharge Plan Reason for Hospitalization: Dehydration Discharge Plan: Meredith is discharged back to the [facility] for residential care and will be transported via EMS. She will follow up with facility/community providers and her discharge plan of care as instructed. Out patient Palliative follow up is recommended. Patient/Family Education Needs: Review discharge instructions, limitations, medications and plan to follow up with community providers. Discuss ask me three. Services Needed at Discharge: Group Home Facility ([facility]) and Transportation (EMS, [place] [facility], coordinated by CM) SDOH Health Related Social Needs: No Data to Display
== END 2024-05-31 14:59 | disposition skilled nursing facility (03) ==
LOC: ER 23:11 → MS 05-29 00:30
PROVIDERS: Nurse Practitioner Acute Care; Admitting Provider General Practice; Emergency Provider Emergency Medicine; PCP Legal Medicine; Visit Provider General Practice
DX: R62.7 Adult failure to thrive (principal); E87.5 Hyperkalemia; N18.30 Chronic kidney disease, stage 3 unspecified; I50.32 Chronic diastolic (congestive) heart failure; F03.918 Unspecified dementia, unspecified severity, with other behavioral disturbance; L89.620 Pressure ulcer of left heel, unstageable; I13.0 Hypertensive heart and chronic kidney disease with heart failure and stage 1 through stage 4 chronic kidney disease, or unspecified chronic kidney disease; R74.01 Elevation of levels of liver transaminase levels; D72.829 Elevated white blood cell count, unspecified; R91.8 Other nonspecific abnormal finding of lung field; Z66 Do not resuscitate; E86.0 Dehydration; R73.03 Prediabetes; G25.0 Essential tremor; E03.9 Hypothyroidism, unspecified; E53.8 Deficiency of other specified B group vitamins; Z86.73 Personal history of transient ischemic attack (TIA), and cerebral infarction without residual deficits; Z79.899 Other long term (current) drug therapy
CPT/HCPCS: 00123; 36415; 80048; 80053; 87641; 93005; 96365; 96372; 96375; 99222; 99285; 71045; 73650; 74177; 81003; 83735; 83880; 84484; 85025; 93010; 99232; 99233; 99239; G0378; J0131; J1650; J2270; J3490

== ENCOUNTER 2024-06-14 18:18 | Outpatient (REF) | payer MEDICARE, MEDICAID, SELFPAY ==
[2024-06-14 18:51] LABS: ALT 12 U/L (14-59); AST 11 U/L (15-37); Albumin 3.2 g/dL (3.4-5.0); Alkaline Phosphatase 200 U/L (46-116); Anion Gap 9.9 mmol/L (3-11); BUN 28 mg/dL (7-18); Bilirubin, Total 0.29 mg/dL (0.2-1.0); CO2 28.1 mmol/L (21.0-32.0); CREATININE 1.9 mg/dL (0.55-1.02); Calcium 9.3 mg/dL (8.5-10.1); Chloride 106 mmol/L (98-107); Estimated GFR 25.24 (mL/min/1.73m2); Glucose 175 mg/dL (74-106); Potassium 4.8 mmol/L (3.5-5.1); Sodium 144 mmol/L (136-145); TSH (W/Ref FT4) 3.53 uIU/mL (0.36-3.74); Vitamin B12 923 pg/mL (193-986)
== END 2024-06-14 18:19 | disposition home or self-care (01) ==
LOC: LBN 18:18
PROVIDERS: PCP Legal Medicine; Visit Provider Nurse Practitioner Gerontology
DX: E03.9 Hypothyroidism, unspecified (principal)
CPT/HCPCS: 80053; 82607; 84443

== ENCOUNTER → 2024-06-24 10:25 | Outpatient (BNVA) | payer MEDICARE, MEDICAID, SELFPAY | PROVIDERS: PCP Legal Medicine; Referring Provider Legal Medicine; Visit Provider Podiatrist | DX: L89.620 Pressure ulcer of left heel, unstageable (principal); L84 Corns and callosities; I73.9 Peripheral vascular disease, unspecified; N18.9 Chronic kidney disease, unspecified; E55.9 Vitamin D deficiency, unspecified; D51.9 Vitamin B12 deficiency anemia, unspecified; I73.89 Other specified peripheral vascular diseases; R09.89 Other specified symptoms and signs involving the circulatory and respiratory systems; R60.0 Localized edema; M79.672 Pain in left foot; L60.3 Nail dystrophy; B35.1 Tinea unguium; L60.2 Onychogryphosis; L65.9 Nonscarring hair loss, unspecified | CPT/HCPCS: 11056; 11721 ==

== ENCOUNTER 2025-01-24 18:17 | Outpatient (REF) | payer MEDICARE, MEDICAID, SELFPAY ==
[2025-01-24 19:43] LABS: Glucose Negative (Negative)
[2025-01-24 19:47] LABS: Abs Immature Grans 0.03 10^3/uL (0.0-0.06); HCT 39.4 % (36.0-46.0); HGB 12.6 g/dL (11.2-15.7); Immature Grans % 0.4 %; MCH 28.7 pg (27.0-33.0); MCHC 32.0 % (32.0-36.0); MCV 90 fL (80-95); MPV 12.1 fL (8.0-11.0); Platelet Count 183 10^3/uL (130-400); RBC 4.39 10^6/uL (3.93-5.22); RDW 15.5 % (11.7-14.6); RDW-SD 51.1 fL; WBC 6.76 10^3/uL (4.4-10.8)
[2025-01-24 20:03] LABS: ALT 16 U/L (14-59); AST 18 U/L (15-37); Albumin 3.8 g/dL (3.4-5.0); Alkaline Phosphatase 181 U/L (46-116); Anion Gap 9.2 mmol/L (3-11); BUN 41 mg/dL (7-18); Bilirubin, Total 0.3 mg/dL (0.2-1.0); CO2 28.8 mmol/L (21.0-32.0); Calcium 9.7 mg/dL (8.5-10.1); Chloride 101 mmol/L (98-107); Estimated GFR 33.31 (mL/min/1.73m2); Glucose 81 mg/dL (74-106); Magnesium 2.1 mg/dL (1.8-2.4); Potassium 4.9 mmol/L (3.5-5.1); Sodium 139 mmol/L (136-145); TSH (W/Ref FT4) 1.25 uIU/mL (0.36-3.74); Total Protein 7.6 g/dL (6.4-8.2)
== END 2025-01-24 18:18 | disposition home or self-care (01) ==
LOC: LBN 18:17
PROVIDERS: PCP Legal Medicine; Visit Provider Nurse Practitioner Gerontology
DX: E87.8 Other disorders of electrolyte and fluid balance, not elsewhere classified (principal); N39.0 Urinary tract infection, site not specified
CPT/HCPCS: 80053; 81003; 83735; 84443; 85025; 87086

== ENCOUNTER 2025-02-21 06:07 | Emergency (ER) | payer MEDICARE, MEDICAID, SELFPAY ==
[2025-02-21] VITALS (34 sets, daily range): BP systolic 99–157; BP diastolic 40–87; PULSE 53–62; RESP 11–22; TEMP 36.3; O2SAT 87–100
--- NOTE | 2025-02-21 05:58 | W.ED.GENAD ---
Discharge Plan Discharge Details Chief Complaint: AMS/LOC Primary Care Provider: Meera Lockett ED Provider: Travis Borges [place] Meds and New Rx's Prescriptions: No Action sennosides [Senna Lax] 8.6 mg tablet 17.2 mg PO BID Qty: 1 0RF polyethylene glycol 3350 [Miralax] 17 gram/dose powder 17 g PO DAILY acetaminophen 325 mg tablet 650 mg PO Q6H PRN metoprolol succinate 25 mg tablet extended release 24 hr 12.5 mg PO DAILY quetiapine 25 mg tablet 25 mg PO BID levothyroxine 25 mcg tablet 50 mcg PO DAILY furosemide 20 mg tablet 20 mg PO 1XD spironolactone 25 mg Tablet 12.5 mg PO DAILY Qty: 15 0RF HPI General Mode of arrival: EMS. Date/Time Provider Initiated Documentation: 02/21/25 06:19. Limitations to Documentation: altered mental status. Information obtained by: EMS, RN notes reviewed and old records reviewed. HPI Narrative: Patient presents to ED by ambulance with reported mental status change and inability to speak. Per ECF staff, told EMS that patient woke at 5 am, got into her chair and was baseline with normal speech. She was then found confused, weak and unable to speak. Patient does follow command but does not respond verbally. Related Data Home Medications ?Medication ?Instructions ?Recorded ?Confirmed sennosides 8.6 mg tablet (Senna 17.2 mg (2 x 8.6 mg) PO BID #1 tab 05/30/22 02/21/25 Lax) polyethylene glycol 3350 17 17 g PO DAILY 09/20/22 02/21/25 gram/dose oral powder (Miralax) furosemide 20 mg tablet 20 mg PO 1XD 11/03/22 02/21/25 spironolactone 25 mg tablet 12.5 mg (1/2 x 25 mg) PO DAILY #15 11/11/22 02/21/25 tabs quetiapine 25 mg tablet 25 mg PO BID 09/18/23 02/21/25 acetaminophen 325 mg tablet 650 mg PO Q6H PRN 10/22/23 02/21/25 metoprolol succinate 25 mg 12.5 mg PO DAILY 04/22/24 02/21/25 tablet,extended release 24 hr levothyroxine 25 mcg tablet 50 mcg PO DAILY 06/24/24 02/21/25 Previous Rx's ?Medication ?Instructions ?Recorded sennosides 8.6 mg tablet (Senna 17.2 mg (2 x 8.6 mg) PO BID #1 tab 05/30/22 Lax) spironolactone 25 mg tablet 12.5 mg (1/2 x 25 mg) PO DAILY #15 11/11/22 tabs Allergies Allergy/AdvReac Type Severity Reaction Status Date / Time amlodipine Allergy Severe Tongue Verified 06/24/24 10:27 swelling oseltamivir (From Tamiflu) Allergy Mild rash Verified 06/24/24 10:27 Sulfa (Sulfonamide Allergy Unknown rash, sick Verified 06/24/24 10:27 Antibiotics) to stomach General JENNIFER: 3 Exam Narrative Exam Narrative: Const: WDWN elderly female in NAD. VS per triage. HEENT: NC/AT. Normal facial exam. Neck: Trachea midline. Lungs: Normal respiratory effort. Lungs are clear. Cor: RRR without murmur. Good radial pulses. GI: Soft/ND/NT. Neuro: Opens eyes to command and follows simple command. Does not speak. Cranial nerves II - XII grossly intact. Able to move all 4 extremities but seems generally weak. Medical Decision Making Patient presenting to ED as stroke alert after reportedly being up and normal at 5am followed by altered mental status, inability to speak and generalized weakness. Review of notes including palliative care, patient with dementia but usually verbal and conversant. She is DNR/DNI but wants transfer and care. Has had episodes in the past where she becomes unresponsive and unable to swallow for a few days and then returns to normal. Work ups have been unable to determine a cause. Patient is responsive currently but is weak, not speaking and generally weak but following command. She is afebrile. Will proceed with work up to include evaluation for stroke, infectious cause, metabolic cause. EKG shows sinus bradycardia, otherwise normal per my read. Labs overall reassuring. Some RAGINI on top of CKD, receiving IV bolus. Urine is negative. Imaging pending. Signed out to oncoming ED physician pending imaging results and neuro consult. Medical Records Medical records reviewed: Yes I reviewed the patient's medical records. Medical records narrative: see [facility] Lab Data Lab results reviewed: Yes I reviewed the patient's lab results. Lab results narrative: see [facility] ECG Data Attestation: I personally reviewed and interpreted this ECG (s) as follows: Prior ECG tracings: available for review Interpretation: see MDM/EKG [facility] All Active Problems PAD (peripheral artery disease) (Acute) Corns and callosities (Acute) Unstageable pressure ulcer of left heel (Acute) Encephalopathy (Acute) Acute dehydration (Acute) Hypertensive urgency (Acute) DNR no code (do not resuscitate) (Acute) Dementia with behavioral disturbance (Acute) Macular degeneration (Acute) Essential tremor (Acute) familial Gait abnormality (Acute) uses a walker when out, balance and shuffling steps Prediabetes (Chronic) 03/26/21- A1c 5.9 [facility] Anxiety (Chronic) CKD (chronic kidney disease) stage 3, GFR 30-59 ml/min (Chronic) Memory changes (Acute) Dyspnea (Acute) Left lower lobe pulmonary nodule (Acute) PET 10/2021: highly metabolically active left lower mass, organizing pneumonia vs. 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 states she is unaware of this. 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 Incidental findings. Pt. states she is unaware of this dx. Dislocation of shoulder, anterior, left, closed (04/10/14) Closed displaced fracture of greater tuberosity of left humerus (04/10/14) Closed fracture of head of left humerus (04/10/14) Surgical History Posterior subcapsular age-related cataract, right eye Status post extracapsular cataract extraction of left eye Fracture, Closed Treatment (04/10/14) LEFT SHOULDER FX AND DISLOCATED Cholecystectomy (~1991) Family History Mother , age 56 Cancer Father , age 76 Heart disease Sister No problems noted. Son No problems noted. Daughter No problems noted. Maternal Grandfather , age 78 No problems noted. Paternal Grandfather , age 62 Stroke Maternal Grandmother , age 89 - Accident No problems noted. Paternal Grandmother , age 68 No problems noted. Social History Smoking/Tobacco Use Status: Never Second Hand Exposure: Yes Smoking risk assessment performed?: Yes Alcohol Intake: never Drug use: Never Substance use type: does not use Counseling given: No Caregiver/Support person: Yes Household members: caregiver Housing: snf Communication Needs: Hard of Hearing Do you need help understanding health information?: Always Pets and animals: No Sexually active: No Do you think of yourself as: straight/heterosexual Current gender identity: female What is your relationship status?: How often do you talk on the phone with friends or family?: three or more times per week How often do you get together with friends or relatives?: once per week How often do you attend baptism or christianity services?: 1-3 times per year Do you belong to any clubs or organized social groups?: no Panel score (0-1 are the most socially isolated patients): 1 What type of physical activity do you participate in: walking and weight lifting Duration: < 15 minutes/day Frequency: 1-2 times per week Anai/Yazidi: Yarsanism Special anai needs: No Seatbelt use: always Helmet use: No Drive intox or ride w/intox nascar driver: No Do you feel safe at home: Yes Do you feel safe in your relationship?: Yes
--- NOTE | 2025-02-21 06:00 | DI.RAD_ITS ---
Exam(s) XR CHEST 1V IN DI DEPT EXAM: XR CHEST 1V IN DI DEPT CLINICAL HISTORY: AMS TECHNIQUE: 2D digital imaging was performed of the chest. One image was obtained. An AP view was obtained. COMPARISON: CR XR CHEST 2V PA LATERAL from 12/03/2022 CR XR CHEST 1V IN DI DEPT from 09/18/2023 CR XR PORTABLE CHEST AP from 05/28/[address] ABDOMEN PELVIS W from 05/28/2024 FINDINGS: MEDIASTINUM: Normal. HEART: Normal. PULMONARY VASCULATURE: Normal. LUNGS: There is persistent scarring in the left lung base. There is a persistent opacity in the left lower lobe. This is unchanged. The lungs are otherwise clear. PLEURAL SPACE: No pleural effusion or pneumothorax. BONE:Within normal limits for the patient's age. There are degenerative changes in the shoulders, right greater than left. There is superior subluxation of the right humeral head relative to the glenoid which can be seen with chronic rotator cuff tear. OTHER FINDINGS:There is mild elevation of the left hemidiaphragm. IMPRESSION: 1. Stable opacity again seen in the left lower lobe. This may be represent a neoplasm. 2. No acute pulmonary process. DATA REPOSITORY: RADIATION DOSE DELIVERED:
--- NOTE | 2025-02-21 06:00 | RT.EKG_ITS ---
APPROVED REPORT Exam: Resting ECG Reason for Exam: [facility] Patient Location: E HR:57 bpm ECG Measurements Heart Rate 57 AXIS WA 204 P 57 QRSd 103 QRS 47 QT 455 T 70 QTc 442 Conclusion Sinus bradycardia...rate< 60 Normal Electrocardiogram
[2025-02-21 06:17] LABS: BE (Venous) 6 mmol/L (-2-3); HCO3 (Venous) 28 mmol/L (23-28); O2 Sat (Venous) 98 %; TCO2 (Venous) 25 mmol/L (24-29); pCO2 (Venous) 33 mmHg (41-51); pO2 (Venous) 79 mmHg
[2025-02-21] MEDS: Normal Saline 1,000 ML 1000 ML IV (06:20)
[2025-02-21 06:22] LABS: Abs Immature Grans 0.02 10^3/uL (0.0-0.06); HCT 37.5 % (36.0-46.0); HGB 12.4 g/dL (11.2-15.7); Immature Grans % 0.3 %; MCH 28.6 pg (27.0-33.0); MCHC 33.1 % (32.0-36.0); MCV 87 fL (80-95); MPV 11.5 fL (8.0-11.0); Platelet Count 145 10^3/uL (130-400); RBC 4.33 10^6/uL (3.93-5.22); RDW 15.6 % (11.7-14.6); RDW-SD 49.5 fL; WBC 7.60 10^3/uL (4.4-10.8)
[2025-02-21 06:43] LABS: ALT 17 U/L (14-59); AST 20 U/L (15-37); Albumin 3.4 g/dL (3.4-5.0); Alkaline Phosphatase 163 U/L (46-116); Anion Gap 14.2 mmol/L (3-11); BUN 48 mg/dL (7-18); Bilirubin, Total 0.5 mg/dL (0.2-1.0); CO2 26.8 mmol/L (21.0-32.0); Calcium 9.7 mg/dL (8.5-10.1); Chloride 98 mmol/L (98-107); Estimated GFR 26.77 (mL/min/1.73m2); Glucose 122 mg/dL (74-106); Magnesium 1.9 mg/dL (1.8-2.4); Potassium 4.1 mmol/L (3.5-5.1); Sodium 139 mmol/L (136-145); Total Protein 7.8 g/dL (6.4-8.2); Troponin I 7 ng/L (<or=51)
[2025-02-21 06:44] LABS: Glucose Negative (Negative)
[2025-02-21] MEDS: Omnipaque 350 MG/ML 100 ML BTL IJ (06:46)
[2025-02-21] MEDS: Normal Saline - Diluent 50 ML VIAL IJ (06:47)
[2025-02-21] MEDS: Normal Saline Flush 10 ML SYR IVP (06:47)
--- NOTE | 2025-02-21 06:48 | DI.CT_ITS ---
Exam(s) CT BRAIN NECK CTA EXAM: CT BRAIN NECK CTA CLINICAL HISTORY: aphasia/AMS. TECHNIQUE: Imaging Protocol: Axial CT angiography was performed with multi- slice acquisition and multi-planar and/or 3D reconstructions. CONTRAST MATERIAL: Intravenous: Omnipaque 350 contrast volume:70 mL COMPARISON: CT CT HEAD - STROKE PROTOCOL from 05/08/[address] HEAD WO from 06/28/[address] BRAIN NECK CTA from 01/14/[address] HEAD WO from 09/18/[address] HEAD WO from 05/27/2024 FINDINGS: The examination is limited due to patient motion artifact. CT Head W/O and W: Ventricles and Extra axial spaces: Normal in size and morphology for the patient's age. There is again seen a partially calcified extra-axial mass along the left frontal convexity consistent with a meningioma. Hemorrhage: None. Cerebral parenchyma: There are areas of decreased attenuation in the white matter consistent with small vessel ischemic disease. There is no evidence of an acute territorial infarct. Midline shift: None. Brainstem/Cerebellum: Note is made of a partially empty sella. Calvarium: Normal. Visualized Paranasal sinuses/Mastoids: Clear. Soft Tissues: Unremarkable. Enhancement: Unremarkable. CTA Neck W: Common Carotid: Right: No dissection, occlusion or significant stenosis. Atherosclerotic calcification is seen in the carotid bulb with less than 50 percent stenosis. Left: No dissection, occlusion or significant stenosis. External Carotid: Right: No occlusion or significant stenosis. Left: No occlusion or significant stenosis. Internal Carotid: Right: No dissection, occlusion or significant stenosis. Left: No dissection, occlusion or significant stenosis. There is atherosclerotic calcification in the proximal left internal carotid artery with approximately 50 percent stenosis. Vertebral Artery: Right: No dissection, occlusion or significant stenosis. Left: No dissection, occlusion or significant stenosis. Lung Apices: Normal. Bones: Within normal limits for the patient's age. Soft Tissues: Normal. Thyroid gland: Unremarkable. CTA Brain W: Internal Carotid Arteries: There is atherosclerotic calcification of the cavernous portions of the internal carotid arteries bilaterally with less than 50 percent stenosis. No occlusion or aneurysm is seen. Anterior Cerebral Arteries: Right: No aneurysm, occlusion or significant stenosis. Left: No aneurysm, occlusion or significant stenosis. Middle Cerebral Arteries: Right: No aneurysm, occlusion or significant stenosis. Left: No aneurysm, occlusion or significant stenosis. Posterior Cerebral Arteries: Right: No aneurysm, occlusion or significant stenosis. Left: No aneurysm, occlusion or significant stenosis. Vertebral Arteries: There is atherosclerotic calcification in the distal vertebral arteries with less than 50 percent stenosis. Right: No aneurysm, occlusion or significant stenosis. Left: No aneurysm, occlusion or significant stenosis. Basilar Artery: No aneurysm, occlusion or significant stenosis. IMPRESSION: 1. No large vessel occlusion or significant stenosis on the CT angiography of the head. 2. No acute intracranial process. 3. No occlusion or significant stenosis on the CT angiography of the neck. 4. The preliminary [facility] report was reviewed. RADIATION DOSE DELIVERED: 2,013.99mGy.cm Total DLP DATA REPOSITORY: All CT scans at this facility are submitted to the National Radiology Data Registry (NRDR) Dose Index Registry (DIR) with the [employer] (A[employer]). RADIATION OPTIMIZATION: All CT scans at this facility use at least one of these dose optimization techniques: automated exposure control; mA and/or kV adjustment per patient size (includes targeted exams where dose is matched to clinical indication); or iterative reconstruction.
--- NOTE | 2025-02-21 07:28 | DI.VRAD_ITS ---
PROCEDURE INFORMATION: Exam: CTA Head Without And With Contrast, Arteriography Exam date and time: 02/21/2025 6:42 AM Age: 89 years old Clinical indication: Stroke-like symptoms; Altered mental status/memory loss and speech disturbance; Additional info: AMS. Aphasia TECHNIQUE: Imaging protocol: Computed tomographic angiography of the head without and with contrast. Exam focused on the arteries. 3D rendering (Not supervised by radiologist): MIP and/or 3D reconstructed images were created by the technologist. Radiation optimization: All CT scans at this facility use at least one of these dose optimization techniques: automated exposure control; mA and/or kV adjustment per patient size (includes targeted exams where dose is matched to clinical indication); or iterative reconstruction. Contrast material: OMNIPAQUE 350; Contrast volume: 70 ml; Contrast route: INTRAVENOUS (IV); Other technique: STROKE PROTOCOL was implemented. COMPARISON: CT BRAIN NECK CTA 01/14/2022 3:23 PM FINDINGS: ANTERIOR CIRCULATION: Right internal carotid artery: Intracranial segment is patent with no significant stenosis or occlusion. No aneurysm. Right middle cerebral artery: No occlusion or significant stenosis. No aneurysm. Right anterior cerebral artery: No occlusion or significant stenosis. No aneurysm. Left internal carotid artery: Intracranial segment is patent with no significant stenosis. No aneurysm. Left middle cerebral artery: No occlusion or significant stenosis. No aneurysm. Left anterior cerebral artery: No occlusion or significant stenosis. No aneurysm. POSTERIOR CIRCULATION: Right vertebral artery: [id number] calcified plaque in the vertebral artery at the skull base again noted. No occlusion. No aneurysm. Left vertebral artery: [id number] calcified plaque in the vertebral artery at the skull base again noted. 1No occlusion. No aneurysm. Basilar artery: No occlusion or significant stenosis. No aneurysm. Right posterior cerebral artery: No occlusion or significant stenosis. No aneurysm. Left posterior cerebral artery: No occlusion or significant stenosis. No aneurysm. HEAD: Brain: No evidence for acute territorial infarct or bleed. Old lacunar infarcts in the basal ganglia again noted Cerebral ventricles: No ventriculomegaly. Bones: Unremarkable. No acute fracture. Paranasal sinuses: Visualized sinuses are normal. No fluid levels. Mastoid air cells: Visualized mastoids are normal. No mastoid effusion. Soft tissues: Unremarkable. IMPRESSION: 1. No large vessel occlusion. 2. No evidence for acute territorial infarct or bleed. ASSESSMENT: ASPECTS ([place] Stroke Program Early CT Score) is 10. PROCEDURE INFORMATION: Exam: CTA Neck Without And With Contrast Exam date and time: 02/21/2025 6:42 AM Age: 89 years old Clinical indication: Stroke-like symptoms; Altered mental status/memory loss and speech disturbance; Additional info: AMS. Aphasia TECHNIQUE: Imaging protocol: Computed tomographic angiography of the neck without and with contrast. Exam focused on the cervical segments of the vasculature. 3D rendering (Not supervised by radiologist): MIP and/or 3D reconstructed images were created by the technologist. Radiation optimization: All CT scans at this facility use at least one of these dose optimization techniques: automated exposure control; mA and/or kV adjustment per patient size (includes targeted exams where dose is matched to clinical indication); or iterative reconstruction. Contrast material: OMNIPAQUE 350; Contrast volume: 70 ml; Contrast route: INTRAVENOUS (IV); COMPARISON: CT BRAIN NECK CTA 01/14/2022 3:23 PM FINDINGS: Right common carotid artery: No significant stenosis. No dissection or occlusion. Mild calcified plaque in the carotid bulb Right internal carotid artery: Extracranial segment is patent with no significant stenosis. No dissection or occlusion. Right external carotid artery: No occlusion or significant stenosis. Left common carotid artery: No significant stenosis. No dissection or occlusion. Mild calcified plaque in the carotid bulb Left internal carotid artery: Extracranial segment is patent with no significant stenosis. No dissection or occlusion. Left external carotid artery: No occlusion or significant stenosis. Right vertebral artery: No significant stenosis. No dissection or occlusion. Left vertebral artery: No significant stenosis. No dissection or occlusion. Soft tissues: No significant soft tissue swelling. Bones/joints: No acute fracture. IMPRESSION: No stenosis or occlusion. REFERENCES: NASCET CRITERIA. The degree of stenosis in the cervical segment of the internal carotid artery is based on NASCET criteria. Normal is no stenosis. Mild is less than 50% stenosis. Moderate is 50-69% stenosis. Severe is 70% to 99% stenosis. Total occlusion is no detectable patent lumen. Dictated and Authenticated by: Sylvester Dobbins MD. Orderin Jony Robles MD
--- NOTE | 2025-02-21 07:33 | DI.[facility]AD_ITS ---
PROCEDURE INFORMATION: Exam: XR Chest Exam date and time: 02/21/2025 6:53 AM Age: 89 years old Clinical indication: Other: AMS; Additional info: AMS. Aphasia TECHNIQUE: Imaging protocol: Radiologic exam of the chest. Views: 1 view. COMPARISON: CR XR PORTABLE CHEST AP 05/28/2024 6:19 PM FINDINGS: Lungs: Possible 3.5 cm lower lobe mass again noted. No new opacity Pleural spaces: No pleural effusion. No pneumothorax. Heart/Mediastinum: No acute findings. Bones/joints: No acute findings. Degenerative changes in the left shoulder IMPRESSION: Possible 3.5 cm lower lobe mass again noted. No new opacity Dictated and Authenticated by: Sylvester Dobbins MD. Orderin Jony Robles MD
[2025-02-21 07:38] LABS: Troponin I 8 ng/L (<or=51)
[2025-02-21 10:01] LABS: Troponin I 9 ng/L (<or=51)
== END 2025-02-21 11:01 | disposition home or self-care (01) ==
PROVIDERS: Emergency Medicine; Emergency Provider General Practice; PCP Legal Medicine
DX: R41.82 Altered mental status, unspecified (principal); R47.81 Slurred speech; R00.1 Bradycardia, unspecified
CPT/HCPCS: 99284; 99285; 36415; 36416; 82962; 70496; 70498; 80053; 82805; 93005; 96360; 71045; 81003; 83605; 83735; 84484; 85025; 93010; J3490

== ENCOUNTER 2025-02-28 19:31 | Outpatient (REF) | payer MEDICARE, MEDICAID, SELFPAY ==
[2025-02-28 17:35] LABS: Abs Immature Grans 0.05 10^3/uL (0.0-0.06); HCT 40.3 % (36.0-46.0); HGB 13.1 g/dL (11.2-15.7); Immature Grans % 0.5 %; MCH 29.4 pg (27.0-33.0); MCHC 32.5 % (32.0-36.0); MCV 90 fL (80-95); MPV 12.0 fL (8.0-11.0); Platelet Count 146 10^3/uL (130-400); RBC 4.46 10^6/uL (3.93-5.22); RDW 16.6 % (11.7-14.6); RDW-SD 54.4 fL; WBC 10.95 10^3/uL (4.4-10.8)
[2025-02-28 17:36] LABS: Glucose Negative (Negative)
[2025-02-28 17:51] LABS: ALT 20 U/L (14-59); AST 23 U/L (15-37); Albumin 3.4 g/dL (3.4-5.0); Alkaline Phosphatase 181 U/L (46-116); Anion Gap 12.7 mmol/L (3-11); BUN 30 mg/dL (7-18); Bilirubin, Total 0.5 mg/dL (0.2-1.0); CO2 26.3 mmol/L (21.0-32.0); Calcium 9.5 mg/dL (8.5-10.1); Chloride 101 mmol/L (98-107); Estimated GFR 28.67 (mL/min/1.73m2); Glucose 146 mg/dL (74-106); Magnesium 2.1 mg/dL (1.8-2.4); NT-proBNP 1029 pg/mL (<300); Potassium 4.9 mmol/L (3.5-5.1); Sodium 140 mmol/L (136-145); Total Protein 7.4 g/dL (6.4-8.2)
== END 2025-02-28 19:32 | disposition home or self-care (01) ==
LOC: LBN 19:31
PROVIDERS: PCP Legal Medicine; Visit Provider Nurse Practitioner Gerontology
DX: N39.0 Urinary tract infection, site not specified (principal)
CPT/HCPCS: 80053; 81003; 83735; 83880; 85025; 87086

== ENCOUNTER 2025-03-07 19:32 | Outpatient (REF) | payer MEDICARE, MEDICAID, SELFPAY ==
[2025-03-07 18:45] LABS: Abs Immature Grans 0.02 10^3/uL (0.0-0.06); HCT 41.5 % (36.0-46.0); HGB 13.5 g/dL (11.2-15.7); Immature Grans % 0.2 %; MCH 29.9 pg (27.0-33.0); MCHC 32.5 % (32.0-36.0); MCV 92 fL (80-95); MPV 12.2 fL (8.0-11.0); Platelet Count 193 10^3/uL (130-400); RBC 4.52 10^6/uL (3.93-5.22); RDW 15.9 % (11.7-14.6); RDW-SD 53.6 fL; WBC 8.82 10^3/uL (4.4-10.8)
[2025-03-07 19:05] LABS: ALT 17 U/L (14-59); AST 18 U/L (15-37); Albumin 3.5 g/dL (3.4-5.0); Alkaline Phosphatase 181 U/L (46-116); Anion Gap 11.2 mmol/L (3-11); BUN 35 mg/dL (7-18); Bilirubin, Total 0.3 mg/dL (0.2-1.0); CO2 28.8 mmol/L (21.0-32.0); Calcium 9.7 mg/dL (8.5-10.1); Chloride 99 mmol/L (98-107); Glucose 172 mg/dL (74-106); Potassium 4.8 mmol/L (3.5-5.1); Sodium 139 mmol/L (136-145); Total Protein 7.6 g/dL (6.4-8.2)
== END 2025-03-07 19:33 | disposition home or self-care (01) ==
LOC: LBN 19:32
PROVIDERS: PCP Legal Medicine; Visit Provider Nurse Practitioner Gerontology
DX: E87.8 Other disorders of electrolyte and fluid balance, not elsewhere classified (principal); D63.1 Anemia in chronic kidney disease
CPT/HCPCS: 80053; 85025